=== PATIENT | male | born 1960 | race Caucasian/White ===

== ENCOUNTER 2016-11-12 20:08 | Inpatient (IN) | payer MEDICARE, MEDICAID ==
[2016-11-12] VITALS (8 sets, daily range): BP systolic 126–152; BP diastolic 70–89; PULSE 82–99; RESP 15–20; TEMP 98.4; O2SAT 96–97
[~2016-11-12] VITALS: Ht 182.9 cm; Wt 93.1 kg
[~2016-11-12 20:08] MED LIST: ATOR20TA42 PO; FOLI1 PO; GABA300C3 PO; HYDR-3533 PO; KEPP1000 PO; LISI5 PO; METO25 PO; PROT40TA PO; RIVA20 PO; THIA100T PO; TYLE3 PO
[2016-11-12] MEDS ORDERED: SODIUM CHLORIDE 0.9% FLUSH 10 ML FLUSH IVF PRN (21:00)
[2016-11-12] MEDS ORDERED: ASPIRIN 81 MG CHEW TAB PO ONE (21:00)
[2016-11-12] MEDS ORDERED: SIMV10TA PO (21:15)
[2016-11-12] MEDS ORDERED: LEVE10003 PO (21:15)
[2016-11-12] MEDS ORDERED: XARE20TA PO (21:15)
[2016-11-12] MEDS ORDERED: ONDANSETRON HCL 4 MG/2 ML VIAL IV PUSH ONE (21:15)
[2016-11-12] MEDS ORDERED: MORPHINE SULFATE 4 MG/ML INJ IV PUSH ONE (21:15)
[2016-11-12] MEDS ORDERED: GABA100C4 PO (21:15)
[2016-11-12] MEDS ORDERED: METO50TA11 PO (21:16)
--- NOTE | 2016-11-12 21:17 | PD ---
HPI Chief Complaint: Allergic/Adverse Reaction Time Seen by Provider: 20:47 Travel History International Travel<30 days: No Contact w/Intl Traveler<30days: No Traveled to known affect area: No History of Present Illness HPI Patient comes in complaining of allergic reaction that began this morning when he woke. Patient states he noticed when he thought was a stye on his right eye. Patient states it is then transferred to his left eye. He states that he began having chest pain right before calling EMS that radiates to his back. Patient states feels similar to when he had a heart attack previously. Patient reports that he was talking with his sister when she notices facial swelling prior to calling 911. Patient denies taking anything for this prior to calling EMS. Patient was given epi, Solu-Medrol Metro, and Benadryl in route to improve his symptoms however he continues to have chest pain. Patient states chest pain is substernal and sharp stabbing like in nature. Patient states he felt like his throat was closing reports associated shortness of breath that was alleviated by the medications. Patient has a known new allergen exposures, including but not limited to foods, soaps, lotions, detergents, medications, pets, or furniture. Denies any numbness or tingling anywhere. Denies any headache. PFSH Past Medical History Hx Anticoagulant Therapy: Yes (Xarelto ) Arthritis: No Asthma: No Atrial Fibrillation: Yes Autoimmune Disease: No Blood Disorders: No Anxiety: No Depression: No Heart Rhythm Problems: Yes Cancer: No Cardiac Catheterization: Yes ("two times"; ABLATION) Cardiovascular Problems: Yes (stent; blood clots ) High Cholesterol: Yes Chemotherapy: No Chest Pain: Yes Congestive Heart Failure: No COPD: No Cerebrovascular Accident: No Diabetes: No Diminished Hearing: No Endocrine: No Gastrointestinal Disorders: Yes GERD: No Glaucoma: No Genitourinary: No Headaches: Yes Hepatitis: No Hiatal Hernia: No Hypertension: Yes Immune Disorder: No Implanted Vascular Access Dvce: Yes Kidney Stones: No Musculoskeletal: Yes Neurologic: Yes (SEIZURES) Psychiatric: No Reproductive: No Respiratory: Yes (CHF) Migraines: No Myocardial Infarction: Yes Radiation Therapy: No Renal Failure: No Seizures: Yes (EPILEPSY 2001) Sickle Cell Disease: No Sleep Apnea: No Thyroid Disease: No Ulcer: No PNEUMOCCOCAL Vaccine (Year): 2 Past Surgical History Abdominal Aneurysm Repair: Yes (1995) Abdominal Surgery: No Appendectomy: No Arteriovenous Shunt: No Body Medical Devices: PACER Cardiac Surgery: Yes (CABG X 3 VESSEL IN , pacemaker removed 8-9 months ago) Cholecystectomy: No Coronary Artery Bypass Graft: Yes Ear Surgery: No Endocrine Surgery: No Eye Surgery: No Genitourinary Surgery: No Gynecologic Surgery: No Insulin Pump: No Joint Replacement: No Oral Surgery: No Thoracic Surgery: No Other Surgery: Yes (DEFIB PACER IMPLANT, CABG) Social History Alcohol Use: Yes (Every other day) Tobacco Use: Yes (1 PACK CIG DAILY) Substance Use: No Allergies-Medications (Allergen,Severity, Reaction): Coded Allergies: cefazolin (Unverified Allergy, Severe, Hives, 10/28/16) nitroglycerin (Unverified Adverse Reaction, Intermediate, Nausea/Vomiting , 10/28/16) Reported Meds & Prescriptions Reported Meds & Active Scripts Active Reported Metoprolol Succinate ER 24 HR (Metoprolol Succinate) 50 Mg Tab 50 Mg PO DAILY Gabapentin 100 Mg Cap 100 Mg PO TID Levetiracetam 1,000 Mg Tab 1,000 Mg PO BID Simvastatin 10 Mg Tab 10 Mg PO DAILY Xarelto (Rivaroxaban) 20 Mg Tab 20 Mg PO DAILY Review of Systems Except as stated in HPI: all other systems reviewed are Neg Physical Exam Narrative GENERAL: Well-developed, overly nourished, in no acute distress, and non-ill appearing. SKIN: Urticaria appearing rash noted on face. Minimal edema noted around the eyes. HEAD: Atraumatic. Normocephalic. EYES: Pupils equal and round. EOMI. No scleral icterus. No injection or drainage. ENT: No nasal bleeding or discharge. Mucous membranes pink and moist. NECK: Trachea midline. Supple. No nuclear rigidity. No stridor. CARDIOVASCULAR: Regular rate and rhythm. No murmur appreciated. RESPIRATORY: No accessory muscle use. No respiratory distress. Scant wheezing throughout. Patient speaking in full sentences without difficulty. GASTROINTESTINAL: Abdomen soft, non-tender, nondistended, and no guarding. Hepatic and splenic margins not palpable. No pulsatile mass. MUSCULOSKELETAL: No obvious deformities. No clubbing. No cyanosis. No edema. Full range of motion. NEUROLOGICAL: Awake and alert. No obvious cranial nerve deficits. Motor grossly within normal limits. Normal speech. PSYCHIATRIC: Appropriate mood and affect; insight and judgment normal. Data Data Last Documented VS Vital Signs Date Time Temp Pulse Resp B/P (MAP) Pulse Ox O2 Delivery O2 Flow Rate FiO2 11/12/16 20:51 94 Nasal Cannula 2.00 11/12/16 20:51 98.4 99 20 130/79 (96) Orders Orders Electrocardiogram (11/12/16 20:48) Basic Metabolic Panel (Bmp) (11/12/16 20:48) Ckmb (Isoenzyme) Profile (11/12/16 20:48) Complete Blood Count With Diff (11/12/16 20:48) Magnesium (Mg) (11/12/16 20:48) Prothrombin Time / Inr (Pt) (11/12/16 20:48) Act Partial Throm Time (Ptt) (11/12/16 20:48) Troponin I (11/12/16 20:48) Chest, Single Ap (11/12/16 20:48) Ecg Monitoring (11/12/16 20:48) Bilateral Bp Monitoring (11/12/16 20:48) Iv Access Insert/Monitor (11/12/16 20:48) Oximetry (11/12/16 20:48) Oxygen Administration (11/12/16 20:48) Aspirin Chew (Aspirin Chew) (11/12/16 21:00) Sodium Chloride 0.9% Flush (Ns Flush) (11/12/16 21:00) Morphine Inj (Morphine Inj) (11/12/16 21:15) Ondansetron Inj (Zofran Inj) (11/12/16 21:15) Potassium Chloride (Kcl) (11/12/16 22:15) Labs Laboratory Tests Test 11/12/16 20:45 White Blood Count 7.7 TH/MM3 Red Blood Count 4.16 MIL/MM3 Hemoglobin 11.4 GM/DL Hematocrit 35.9 % Mean Corpuscular Volume 86.2 FL Mean Corpuscular Hemoglobin 27.5 PG Mean Corpuscular Hemoglobin Concent 31.9 % Red Cell Distribution Width 16.8 % Platelet Count 63 TH/MM3 Mean Platelet Volume 9.4 FL Neutrophils (%) (Auto) 62.7 % Lymphocytes (%) (Auto) 27.7 % Monocytes (%) (Auto) 8.8 % Eosinophils (%) (Auto) 0.5 % Basophils (%) (Auto) 0.3 % Neutrophils # (Auto) 4.8 TH/MM3 Lymphocytes # (Auto) 2.1 TH/MM3 Monocytes # (Auto) 0.7 TH/MM3 Eosinophils # (Auto) 0.0 TH/MM3 Basophils # (Auto) 0.0 TH/MM3 CBC Comment AUTO DIFF Differential Comment AUTO DIFF CONFIRMED Prothrombin Time 12.2 SEC Prothromb Time International Ratio 1.1 RATIO Activated Partial Thromboplast Time 30.4 SEC Blood Urea Nitrogen 10 MG/DL Creatinine 1.02 MG/DL Random Glucose 128 MG/DL Calcium Level 8.7 MG/DL Magnesium Level 2.0 MG/DL Sodium Level 134 MEQ/L Potassium Level 3.1 MEQ/L Chloride Level 100 MEQ/L Carbon Dioxide Level 24.3 MEQ/L Anion Gap 10 MEQ/L Estimat Glomerular Filtration Rate 76 ML/MIN Total Creatine Kinase 67 U/L Troponin I LESS THAN 0.02 NG/ML MDM Medical Decision Making Medical Screen Exam Complete: Yes Emergency Medical Condition: Yes Interpretation(s) EKG reviewed by Dr. Ozuna shows sinus rhythm with occasional PVCs. Ventricular rate is 98. No STEMI. Chest x-ray read by the radiologist shows: Minimal suspected right base atelectasis or consolidation. Cardiomegaly. Differential Diagnosis Allergic reaction, anaphylaxis, acute coronary syndrome, electrolyte abnormality , pneumonia, other Narrative Course Patient's exam. Initial laboratory and radiological studies ordered. IV was established patient's placed on continuous cardiac monitoring. Patient was given aspirin. Patient is reassessed continuing complaining of chest pain. Patient was given a dose morphine. Patient's potassium was replaced orally. Chest x-ray findings likely atelectasis. Discussed patient with Dr. Ozuna, who is in agreement with plan of care and disposition. Discussed all findings with patient was agreeable for admission. All questions were answered. Patient remained stable throughout ED course. Discussed patient with hospitalist who is agreeable to admit the patient. Physician Communication Physician Communication [phone] Doll, who is agreeable to admit the patient. Diagnosis Primary Impression: Acute chest pain Additional Impressions: Allergic reaction Qualified Codes: T78.40XA - Allergy, unspecified, initial encounter Hypokalemia Admitting Information Admitting Physician Requests: Observation Condition: Stable Masoud Roche Nov 12, 2016 21:17
[2016-11-12 21:25] LABS: APTT (PATIENT) 30.4 SEC (24.3-30.1); AUTOMATED NEUTROPHIL # 4.8 TH/MM3 (1.8-7.7); BASOPHIL % 0.3 % (0.0-2.0); EOSINOPHIL % 0.5 % (0.0-4.0); HEMATOCRIT 35.9 % (39.0-51.0); INTERNATIONAL NORMALIZED RATIO 1.1 RATIO; LYMPH % 27.7 % (9.0-44.0); LYMPHOCYTE # 2.1 TH/MM3 (1.0-4.8); MEAN CELL VOLUME 86.2 FL (80.0-100.0); MEAN CORPUSCULAR HEMOGLOBIN 27.5 PG (27.0-34.0); MEAN CORPUSCULAR HGB CONC 31.9 % (32.0-36.0); MONO % 8.8 % (0.0-8.0); NEUT % 62.7 % (16.0-70.0); PLATELET COUNT 63 TH/MM3 (150-450); PROTHROMBIN TIME - PATIENT 12.2 SEC (9.8-11.6); RED BLOOD COUNT 4.16 MIL/MM3 (4.50-5.90); RED CELL DISTRIBUTION WIDTH 16.8 % (11.6-17.2); WHITE BLOOD COUNT 7.7 TH/MM3 (4.0-11.0)
[2016-11-12 21:26] LABS: HEMO FLAGS AUTO DIFF
[2016-11-12 21:44] LABS: ANION GAP 10 MEQ/L (5-15); BICARBONATE 24.3 MEQ/L (21.0-32.0); BLOOD UREA NITROGEN 10 MG/DL (7-18); CHLORIDE 100 MEQ/L (98-107); GLOMERULAR FILTRATION RATE 76 ML/MIN (>89); POTASSIUM 3.1 MEQ/L (3.5-5.1); SODIUM (NA) 134 MEQ/L (136-145)
[2016-11-12 21:50] LABS: SCAN/DIFF AUTO DIFF CONFIRMED
--- NOTE | 2016-11-12 22:09 | RADRPT ---
EXAM DATE/TIME: 11/12/2016 21:01 [facility] COMPARISON: CHEST SINGLE AP, January 12, 2016, 20:55. INDICATIONS : Chest pain MEDICAL HISTORY : Hypercholesterolemia. Hypertension. Myocardial infarction. A-fib. SURGICAL HISTORY : Pacemaker. CABG. Abdominal aortic aneurysm repair. Cardiac cath.Ablation. ENCOUNTER: Initial ACUITY: 2 days PAIN SCORE: 8/10 LOCATION: chest FINDINGS: The patient is status post sternotomy. The heart size is enlarged. There is a pacing device in place from the right subclavian approach. There some mild increased density at the right base. The left debbie g appears grossly clear. No effusion is seen. CONCLUSION: Minimal suspected right base atelectasis or consolidation. Cardiomegaly. Felipe Catherine MD on November 12, 2016 at 22:07 Board Certified Radiologist. This report was verified electronically.
[2016-11-12] MEDS ORDERED: POTASSIUM CHLORIDE 20 MEQ CONTROLLED RELEASE TAB PO ONE (22:15)
[2016-11-12 22:24] LABS: CREATINE KINASE 67 U/L (39-308)
[2016-11-12] MEDS ORDERED: SODIUM CHLORIDE 0.9% FLUSH 10 ML FLUSH IV FLUSH PRN (23:00)
[2016-11-12] MEDS ORDERED: RESP: IPRATROPIUM 0.5 MG/2.5 ML NEB NEB PRN (23:00)
[2016-11-12] MEDS ORDERED: NALOXONE HCL 0.4 MG/ML AMP IV PRN (23:00)
[2016-11-13] VITALS (13 sets, daily range): BP systolic 98–147; BP diastolic 59–77; PULSE 64–100; RESP 16–18; TEMP 97.3–98.9; O2SAT 92–98
--- NOTE | 2016-11-13 00:50 | HHI.HP ---
HPI Service [facility] Primary Care Physician Unknown Admission Diagnosis chest pain, allergic reaction Diagnoses: Chief Complaint: allergic reaction, chest pain, sob Travel History International Travel<30 Days: No Contact w/Intl Traveler <30 Da: No Traveled to Known Affected Are: No History of Present Illness Written by MAI Friedman acting as scribe for [Sharmila] on 11/13/16 at 00: 44. 56 y/o female with a history of HTN, pre diabetic, [place], COPD, Seizures, and CAD presented to the ED via Evac with complaints of facial swelling, chest pain, and sob. He states he woke up left eye swollen, then his right eye became swollen and it extended down his face. Shortly after he began to have chest pain and sob. He states the chest pain is constant with radiation to his left arm and associated diaphoresis. He is on chronic anticoagulation. He was given morphine and the pain subsided for some time, but he states it is back. He denies eating any thing new or using any new medication or soaps. He states he has had a cold with congestion, yellow sputum, and running nose, and he was treating it with alkalizer cold medicine OTC for the last 7-8 days with improvement. He did have some associated dizziness and nausea. Review of Systems Except as stated in HPI: all other systems reviewed are Neg Past Family Social History Past Medical History HTN OK CAD CHF Afib on anticoagulation COPD Seizures Past Surgical History CABG 1998 Ablation x 2 Reported Medications Reported Meds & Active Scripts Active Reported Metoprolol Succinate ER 24 HR (Metoprolol Succinate) 50 Mg Tab 50 Mg PO DAILY Gabapentin 100 Mg Cap 100 Mg PO TID Levetiracetam 1,000 Mg Tab 1,000 Mg PO BID Simvastatin 10 Mg Tab 10 Mg PO DAILY Xarelto (Rivaroxaban) 20 Mg Tab 20 Mg PO DAILY Allergies: Coded Allergies: cefazolin (Unverified Allergy, Severe, Hives, 10/28/16) nitroglycerin (Unverified Adverse Reaction, Intermediate, Nausea/Vomiting , 10/28/16) Active Ordered Medications Current Medications Medications (Trade) Dose Ordered Sig/Viky Route Start Time Stop Time Status Last Admin (NS Flush) 2 ml UNSCH PRN IV FLUSH 11/12/16 23:00 (NS Flush) 2 ml BID IV FLUSH 11/13/16 09:00 (Narcan Inj) 0.4 mg UNSCH PRN IV 11/12/16 23:00 (Benadryl Inj) 25 mg Q6H PRN IV PUSH 11/12/16 23:00 (Ecotrin Ec) 325 mg DAILY PO 11/13/16 09:00 (Atrovent Neb) 0.5 mg Q6HR NEB NEB 11/13/16 04:00 (Atrovent Neb) 0.5 mg Q2HR NEB PRN NEB 11/12/16 23:00 Family History Mom: CHF, at 66 Dad: Cancer, at 56 Social History Tobacco use: 1 03/16 PPD Alcohol use: 6-8 beers 2-3 times a week Illicit drug use: Denies Physical Exam Vital Signs Vital Signs Date Time Temp Pulse Resp B/P (MAP) Pulse Ox O2 Delivery O2 Flow Rate FiO2 11/13/16 00:16 77 15 115/76 (89) 97 2.00 11/13/16 00:00 78 18 115/76 (89) 96 Nasal Cannula 2.00 11/12/16 23:30 82 18 126/73 (90) 97 Nasal Cannula 2.00 11/12/16 23:00 84 15 131/82 (98) 97 Nasal Cannula 2.00 11/12/16 22:30 90 19 152/89 (110) 96 Nasal Cannula 2.00 11/12/16 22:00 97 17 137/75 (95) 96 Nasal Cannula 2.00 11/12/16 21:30 96 18 140/84 (102) 96 Nasal Cannula 2.00 11/12/16 21:00 98 19 134/70 (91) 97 Nasal Cannula 2.00 11/12/16 20:51 94 Nasal Cannula 2.00 11/12/16 20:51 98.4 99 20 130/79 (96) 97 Nasal Cannula 2.00 11/12/16 20:30 60 96 Nasal Cannula 2.00 11/12/16 20:27 98.4 99 20 130/79 (96) 96 Physical Exam GENERAL: This is a well-nourished, well-developed patient, in no apparent distress. SKIN: No rashes, ecchymoses or lesions. Cool and dry. HEAD: Atraumatic. Normocephalic. EYES: Pupils equal round and reactive. ENT: Nose without bleeding, purulent drainage or septal hematoma. Airway patent. NECK: Trachea midline. No JVD or lymphadenopathy. CARDIOVASCULAR: Regular rate and rhythm without murmurs, gallops, or rubs. RESPIRATORY: Clear to auscultation. Breath sounds equal bilaterally. No wheezes , rales, or rhonchi. GASTROINTESTINAL: Abdomen soft, non-tender, nondistended. MUSCULOSKELETAL: Extremities without clubbing, cyanosis, or edema. No joint tenderness, effusion, or edema noted. No calf tenderness. NEUROLOGICAL: Awake and alert.Motor and sensory grossly within normal limits. Normal speech. Laboratory Laboratory Tests Test 11/12/16 20:45 White Blood Count 7.7 Red Blood Count 4.16 Hemoglobin 11.4 Hematocrit 35.9 Mean Corpuscular Volume 86.2 Mean Corpuscular Hemoglobin 27.5 Mean Corpuscular Hemoglobin Concent 31.9 Red Cell Distribution Width 16.8 Platelet Count 63 Mean Platelet Volume 9.4 Neutrophils (%) (Auto) 62.7 Lymphocytes (%) (Auto) 27.7 Monocytes (%) (Auto) 8.8 Eosinophils (%) (Auto) 0.5 Basophils (%) (Auto) 0.3 Neutrophils # (Auto) 4.8 Lymphocytes # (Auto) 2.1 Monocytes # (Auto) 0.7 Eosinophils # (Auto) 0.0 Basophils # (Auto) 0.0 CBC Comment AUTO DIFF Differential Comment AUTO DIFF CONFIRMED Prothrombin Time 12.2 Prothromb Time International Ratio 1.1 Activated Partial Thromboplast Time 30.4 Blood Urea Nitrogen 10 Creatinine 1.02 Random Glucose 128 Calcium Level 8.7 Magnesium Level 2.0 Sodium Level 134 Potassium Level 3.1 Chloride Level 100 Carbon Dioxide Level 24.3 Anion Gap 10 Estimat Glomerular Filtration Rate 76 Total Creatine Kinase 67 Troponin I LESS THAN 0.02 Result Diagram: 11/12/16204411/12/162044 Imaging Last Impressions Chest X-Ray 11/12/162047 Signed Impressions: Service Date/Time: October 21:01 - CONCLUSION: Minimal suspected right base atelectasis or consolidation. Cardiomegaly. MD Nayeli Moffetti VTE Risk Assessment Caprini VTE Risk Assessment: Mod/High Risk (score >= 2) Caprini Risk Assessment Model Point Value = 1 Point Value = 2 Point Value = 3 Point Value = 5 Age 41-60 Minor surgery BMI > 25 kg/m2 Swollen legs Varicose veins or History of unexplained or recurrent spontaneous Oral contraceptives or hormone replacement Sepsis (< 1 month) Serious lung disease, including pneumonia (< 1 month) Abnormal pulmonary function Acute myocardial infarction Congestive heart failure (< 1 month) History of inflammatory bowel disease Medical patient at bed rest Age 61-74 Arthroscopic surgery Major open surgery (> 45 min) Laparoscopic surgery (> 45 min) Malignancy Confined to bed (> 72 hours) Immobilizing plaster cast Central venous access Age >= 75 History of VTE Family history of VTE Factor V Leiden Prothrombin [id number] Lupus anticoagulant Anticardiolipin antibodies Elevated serum homocysteine Heparin-induced thrombocytopenia Other congenital or acquired thrombophilia Stroke (< 1 month) Elective arthroplasty Hip, pelvis, or leg fracture Acute spinal cord injury (< 1 month) Prophylaxis Regimen Total Risk Factor Score Risk Level Prophylaxis Regimen 0-1 Low Early ambulation 2 Moderate Order ONE of the following: *Sequential Compression Device (SCD) *Heparin 5000 units SQ BID 3-4 Higher Order ONE of the following medications: *Heparin 5000 units SQ TID *Enoxaparin/Lovenox 40 mg SQ daily (WT < 150 kg, CrCl > 30 mL/min) *Enoxaparin/Lovenox 30 mg SQ daily (WT < 150 kg, CrCl > 10-29 mL/min) *Enoxaparin/Lovenox 30 mg SQ BID (WT < 150 kg, CrCl > 30 mL/min) AND/OR *Sequential Compression Device (SCD) 5 or more Highest Order ONE of the following medications: *Heparin 5000 units SQ TID (Preferred with Epidurals) *Enoxaparin/Lovenox 40 mg SQ daily (WT < 150 kg, CrCl > 30 mL/min) *Enoxaparin/Lovenox 30 mg SQ daily (WT < 150 kg, CrCl > 10-29 mL/min) *Enoxaparin/Lovenox 30 mg SQ BID (WT < 150 kg, CrCl > 30 mL/min) AND *Sequential Compression Device (SCD) Assessment and Plan Problem List: (1) Chest pain ICD Code: R07.9 - Chest pain, unspecified Status: Acute (2) Hypokalemia ICD Code: E87.6 - Hypokalemia Status: Acute (3) Allergic reaction ICD Code: T78.40XA - Allergy, unspecified, initial encounter Status: Acute (4) A-fib ICD Code: I48.91 - Unspecified atrial fibrillation Status: Chronic Assessment and Plan 56 y/o female with a history of HTN, pre diabetic, [place], COPD, Seizures, and CAD presented to the ED via Evac with complaints of facial swelling, chest pain, and sob. Chest pain, atypical, r/o ACS, troponin .02 -Serial troponin and EKGs -Morphine for pain Allergic reaction, unknown source, resolving -Solumedrol and epi given by evac -Cont to monitor -Benadryl IV PRN Hypokalemia, potassium 3.1, mag 2.0 -Supplementation ordered, trend BMP and replace as needed Cough, for 1 week, hx of COPD, no leukocytosis or fevers Chest x ray reviewed and shows minimal suspected right base atelectasis or consolidation -Atrovent scheduled and PRN -Incentive spirometer -Hold antibiotics for now Afib, chronic -Cont home medications metoprolol and Xarelto, monitor tele Seizures, chronic -Cont home medications gabapentin and Keppra Tobacco abuse -Consoled on quitting DVT prophylaxis: Xarelto This note was transcribed by suresh [Elsa Loza]. I, Dr. Ana María Doll personally performed the history, physical exam, and medical decision making; and confirmed the accuracy of the information in the transcribed note. Authenticated by Dr. Ana María Doll on 11/13/16 at 00:44. Discussed Condition With Patient and ED physician Problem Qualifiers (1) Allergic reaction: Qualified Codes: T78.40XA - Allergy, unspecified, initial encounter Elsa Loza Nov 13, 2016 00:50 Ana María Doll MD Nov 13, 2016 09:33
[2016-11-13] MEDS ORDERED: GABAPENTIN 100 MG CAP PO ONE (01:00)
[2016-11-13] MEDS: levETIRAcetam 500 MG TAB PO SCH ×3 (01:34→20:29)
[2016-11-13] MEDS: MORPHINE SULFATE 4 MG/ML INJ IV PUSH PRN ×4 (01:35→17:01)
[2016-11-13] MEDS: RESP: IPRATROPIUM 0.5 MG/2.5 ML NEB NEB SCH ×4 (03:39→20:11)
[2016-11-13 04:33] LABS: CREATINE KINASE 59 U/L (39-308)
[2016-11-13] MEDS: diphenhydrAMINE HCL 50 MG/ML VIAL IV PUSH PRN ×2 (04:39→11:02)
[2016-11-13] MEDS: PRAVASTATIN SOD 20 MG TAB PO SCH (08:48)
[2016-11-13] MEDS: METOPROLOL SUCCINATE 50 MG EXTENDED RELEASE TAB PO SCH (08:48)
[2016-11-13] MEDS: RIVAROXABAN 20 MG TAB PO SCH (08:48)
[2016-11-13] MEDS: GABAPENTIN 100 MG CAP PO SCH ×3 (08:49→18:18)
[2016-11-13] MEDS: SODIUM CHLORIDE 0.9% FLUSH 10 ML FLUSH IV FLUSH SCH ×2 (08:50→20:15)
[2016-11-13] MEDS ORDERED: ASPIRIN EC 325 MG TABEC PO SCH (09:00)
[2016-11-13 09:06] LABS: AUTOMATED NEUTROPHIL # 4.7 TH/MM3 (1.8-7.7); HEMATOCRIT 35.6 % (39.0-51.0); LYMPH % 10.7 % (9.0-44.0); LYMPHOCYTE # 0.6 TH/MM3 (1.0-4.8); MEAN CELL VOLUME 86.8 FL (80.0-100.0); MEAN CORPUSCULAR HEMOGLOBIN 28.1 PG (27.0-34.0); MEAN CORPUSCULAR HGB CONC 32.3 % (32.0-36.0); MONO % 3.3 % (0.0-8.0); PLATELET COUNT 53 TH/MM3 (150-450); RED BLOOD COUNT 4.09 MIL/MM3 (4.50-5.90); WHITE BLOOD COUNT 5.5 TH/MM3 (4.0-11.0)
[2016-11-13 09:17] LABS: HEMO FLAGS AUTO DIFF
[2016-11-13 09:32] LABS: BICARBONATE 26.7 MEQ/L (21.0-32.0); POTASSIUM 4.2 MEQ/L (3.5-5.1)
[2016-11-13 10:12] LABS: SCAN/DIFF AUTO DIFF CONFIRMED
[2016-11-13] MEDS ORDERED: DEXTROSE 50% IN WATER 50 ML VIAL(D50) IV PRN (10:45)
[2016-11-13] MEDS ORDERED: GLUCAGON 1 MG/ML VIAL OTHER PRN (10:45)
--- NOTE | 2016-11-13 11:18 | HHI.PR ---
Subjective Remarks Follow-up for facial swelling and chest discomfort. The patient states that yesterday he was having generalized facial swelling. He states that the swelling improved some with medications he received, but it is still present. He doesn't feel like the Benadryl is helping it anymore. He states he had shortness of breath yesterday but that has resolved. He denies any lip, tongue , or throat swelling. He is unsure what he might have had a reaction to. He denies any eating any unusual foods, new medications, new detergents or soaps, any new bites or plant exposures. He denies any rash. He's never had any reaction like this before. He states he felt like he had the flu recently which has improved but not resolved. He's been having dry cough, nausea, vomiting. Yesterday he did have needlelike pain in his chest. The pain was not similar to when he had his previous CABG. He does follow with cardiology, Dr. Beaulieu, and had a normal stress test last year. He doesn't feel like this is his heart and declines any further cardiac workup at this time. He just wants his facial swelling better so he can go home soon. Objective Vitals Vital Signs Date Time Temp Pulse Resp B/P (MAP) Pulse Ox O2 Delivery O2 Flow Rate FiO2 11/13/16 08:10 98.5 89 18 109/74 (86) 93 11/13/16 07:33 79 11/13/16 04:30 97.6 80 17 119/67 (84) 93 11/13/16 03:41 97 Nasal Cannula 2.00 11/13/16 01:20 97.3 73 16 122/77 (92) 96 11/13/16 00:16 77 15 115/76 (89) 97 2.00 11/13/16 00:00 78 18 115/76 (89) 96 Nasal Cannula 2.00 11/12/16 23:30 82 18 126/73 (90) 97 Nasal Cannula 2.00 11/12/16 23:00 84 15 131/82 (98) 97 Nasal Cannula 2.00 11/12/16 22:30 90 19 152/89 (110) 96 Nasal Cannula 2.00 11/12/16 22:00 97 17 137/75 (95) 96 Nasal Cannula 2.00 11/12/16 21:30 96 18 140/84 (102) 96 Nasal Cannula 2.00 11/12/16 21:00 98 19 134/70 (91) 97 Nasal Cannula 2.00 11/12/16 20:51 94 Nasal Cannula 2.00 11/12/16 20:51 98.4 99 20 130/79 (96) 97 Nasal Cannula 2.00 11/12/16 20:30 60 96 Nasal Cannula 2.00 11/12/16 20:27 98.4 99 20 130/79 (96) 96 Result Diagram: 11/13/16 0658 11/13/16 0658 Imaging Last Impressions Chest X-Ray 11/12/162047 Signed Impressions: Service Date/Time: October 21:01 - CONCLUSION: Minimal suspected right base atelectasis or consolidation. Cardiomegaly. Felipe Catherine MD Objective Remarks GENERAL: Well-developed well-nourished. In no acute distress. SKIN: Warm and dry. Face with some mild generalized edema. HEENT: Normocephalic. Pupils equal and round. Mucous membranes pink and moist. No lip, tongue, throat swelling. CARDIOVASCULAR: Regular rate and rhythm. No murmur appreciated. RESPIRATORY: No accessory muscle use. Clear to auscultation. Breath sounds equal bilaterally. No wheezing. GASTROINTESTINAL: Abdomen soft, non-tender, nondistended. Bowel sounds x4. MUSCULOSKELETAL: No obvious deformities. No clubbing or cyanosis. No edema. NEUROLOGICAL: Awake and alert. No focal neurological deficits. Moves upper and lower extremities spontaneously. Normal speech. PSYCHIATRIC: Appropriate mood and affect; insight and judgment normal. A/P Problem List: (1) Chest pain ICD Code: R07.9 - Chest pain, unspecified Status: Resolved (2) Hypokalemia ICD Code: E87.6 - Hypokalemia Status: Resolved (3) Allergic reaction ICD Code: T78.40XA - Allergy, unspecified, initial encounter Status: Acute (4) A-fib ICD Code: I48.91 - Unspecified atrial fibrillation Status: Chronic Assessment and Plan 56 y/o male with a history of HTN, pre diabetic, [place], COPD, Seizures, and CAD presented to the ED via Evac with complaints of facial swelling, chest pain, and sob. Chest pain, atypical: Suspect secondary to URI as below. ACS ruled out per protocol with unremarkable serial cardiac enzymes and EKGs. Lower risk for thrombosis on Xarelto. 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 Cough is been persistent over a week, possibly contributing to atypical chest pain. No leukocytosis or fevers.Chest x ray image reviewed and shows minimal suspected right base atelectasis or consolidation. -Atrovent scheduled and PRN -Incentive spirometer -Due to duration of symptoms and chest x-ray findings will treat for atypical pneumonia with azithromycin Borderline diabetes mellitus: Hyperglycemia secondary to steroids. -Check hemoglobin A1c -Monitor Accu-Cheks and cover with SSI if needed for now while on steroids. Afib, chronic -Cont home medications metoprolol and Xarelto, monitor tele Seizures, chronic -Cont home medications gabapentin and Keppra Tobacco abuse -Consoled on quitting DVT prophylaxis: Xarelto Discharge Planning Possible discharge planning later today vs tomorrow am if continued clinical improvement. Problem Qualifiers (1) Allergic reaction: Qualified Codes: T78.40XA - Allergy, unspecified, initial encounter Franco Mckeon Nov 13, 2016 11:18
[2016-11-13 12:07] LABS: CREATINE KINASE 61 U/L (39-308)
[2016-11-13] MEDS: INSULIN ASPART SUPPLEMENTAL SCALE SQ SCH ×3 (12:55→20:28)
[2016-11-13] MEDS ORDERED: AZITHROMYCIN 250 MG TAB PO ONE (13:00)
[2016-11-13] MEDS ORDERED: methylPREDNISolone SOD SUCC 125 MG/2 ML VIAL IV PUSH ONE (13:00)
[2016-11-13] MEDS ORDERED: ONDANSETRON HCL 4 MG/2 ML VIAL IV PUSH PRN (14:30)
[2016-11-13] MEDS: diphenhydrAMINE HCL 25 MG CAP PO SCH ×2 (17:01→21:53)
[2016-11-13 17:15] LABS: HEMOGLOBIN A1a 1.7 %; HEMOGLOBIN A1b 0.9 %; HEMOGLOBIN Ao 79.3 %; HEMOGLOBIN F 1.6 %; HEMOGLOBIN LA1C 3.6 %; HEMOGLOBIN P3 4.2 %
--- NOTE | 2016-11-13 19:45 | EKG ---
Date Performed: 11/13/2016 Time Performed: 09:46:07 PTAGE: 56 years EKG: Sinus rhythm WITH OCCASIONAL SUPRAVENTRICULAR PREMATURE COMPLEXES ST DEVIATION AND MODERATE T-WAVE ABNORMALITY, C ONSIDER ANTEROLATERAL ISCHEMIA ST DEVIATION AND MODERATE T-WAVE ABNORMALITY, CONSIDER INFERIOR ISCHEM IA ABNORMAL ECG PREVIOUS TRACING : 11/13/2016 05.22 Compared to prior tracing no significant change DOCTOR: García Kiser Interpretating Date/Time 11/13/2016 19:44:17
[2016-11-13] MEDS: predniSONE 20 MG TAB PO SCH (20:29)
--- NOTE | 2016-11-13 20:37 | EKG ---
Date Performed: 11/13/2016 Time Performed: 05:22:44 PTAGE: 56 years EKG: Sinus rhythm MODERATE INTRAVENTRICULAR CONDUCTION DELAY ST DEVIATION AND MODERATE T-WAVE ABNORMALITY, CONSIDER LA TERAL ISCHEMIA ST DEVIATION AND MODERATE T-WAVE ABNORMALITY, CONSIDER INFERIOR ISCHEMIA ABNORMAL ECG PREVIOUS TRACING : 11/12/2016 20.51 Compared to the previous tracing, ST/T wave changes are mor e prominent DOCTOR: García Kiser Interpretating Date/Time 11/13/2016 20:35:27
[2016-11-13] MEDS ORDERED: ACETAMINOPHEN/HYDROcodone 325 MG/7.5 MG TAB PO ONE (21:30)
[2016-11-13] MEDS: methylPREDNISolone SOD SUCC 40 MG/1 ML VIAL IV PUSH SCH (21:53)
[2016-11-14] VITALS (14 sets, daily range): BP systolic 90–120; BP diastolic 58–70; PULSE 57–89; RESP 18–20; TEMP 96.8–98.8; O2SAT 88–100
--- NOTE | 2016-11-14 00:54 | EKG ---
Date Performed: 11/12/2016 Time Performed: 20:51:38 PTAGE: 56 years EKG: Sinus rhythm WITH OCCASIONAL VENTRICULAR PREMATURE COMPLEXES POSSIBLE LEFT ATRIAL ENLARGEMENT MODERATE INTRAVENTR ICULAR CONDUCTION DELAY NONSPECIFIC ST & T-WAVE ABNORMALITY BORDERLINE ECG PREVIOUS TRACING : 01/12/2016 20.30 Compared to the previous tracing, PVCs now noted DOCTOR: García Kiser Interpretating Date/Time 11/14/2016 00:53:14
[2016-11-14] MEDS: RESP: IPRATROPIUM 0.5 MG/2.5 ML NEB NEB SCH ×2 (03:01→10:41)
[2016-11-14] MEDS: diphenhydrAMINE HCL 25 MG CAP PO SCH ×4 (04:07→21:07)
[2016-11-14] MEDS: methylPREDNISolone SOD SUCC 40 MG/1 ML VIAL IV PUSH SCH (06:26)
[2016-11-14] MEDS: INSULIN ASPART SUPPLEMENTAL SCALE SQ SCH ×5 (07:23→23:28)
--- NOTE | 2016-11-14 08:37 | HHI.PR ---
Subjective Remarks Follow-up for facial swelling, cough, new onset diabetes. The patient feels like his coughing is worse today. His facial swelling is improved some, but he does not feel that it is resolved. He had an episode of nausea and vomiting yesterday. Blood glucose was significantly elevated overnight. He doesn't feel well enough to go home currently. The patient says that his facial swelling is improved. He was not aware that he was a diabetic. He does endorse that he has COPD. He continues to smoke cigarettes. Objective Vitals Vital Signs Date Time Temp Pulse Resp B/P (MAP) Pulse Ox O2 Delivery O2 Flow Rate FiO2 11/14/16 06:16 98.7 87 18 120/70 (87) 94 11/14/16 04:53 98.8 78 18 102/61 (75) 98 11/14/16 03:58 57 11/14/16 00:07 79 11/13/16 23:39 98.0 64 18 108/63 (78) 98 11/13/16 20:40 98.4 74 18 98/59 (72) 95 11/13/16 20:08 76 11/13/16 20:05 92 Nasal Cannula 2.00 11/13/16 15:51 98.9 100 18 109/62 (78) 92 11/13/16 12:38 98.7 87 18 147/71 (96) 97 11/13/16 11:50 Nasal Cannula 2.00 I/O 11/13/16 11/13/16 11/13/16 11/14/16 11/14/16 11/14/16 07:00 15:00 23:00 07:00 15:00 23:00 Intake Total 500 ml Output Total 600 ml 500 ml Balance -100 ml -500 ml Intake Oral 500 ml Output Urine Total 600 ml 500 ml # Voids 6 Result Diagram: 11/13/1658 11/13/1658 Imaging Last Impressions Chest X-Ray 11/12/162047 Signed Impressions: Service Date/Time: October 21:01 - CONCLUSION: Minimal suspected right base atelectasis or consolidation. Cardiomegaly. Felipe Catherine MD Objective Remarks GENERAL: Well-developed well-nourished. In no acute distress. Resting comfortably. SKIN: Warm and dry. Face with improving mild generalized edema. No generalized rash. HEENT: Normocephalic. Pupils equal and round. Mucous membranes pink and moist. CARDIOVASCULAR: Regular rate and rhythm. No murmur appreciated. RESPIRATORY: No accessory muscle use. Clear to auscultation. Coarse breath sounds. Bilateral expiratory wheezing and rhonchi. GASTROINTESTINAL: Abdomen soft, non-tender, nondistended. Bowel sounds x4. MUSCULOSKELETAL: No obvious deformities. No clubbing or cyanosis. No edema. NEUROLOGICAL: Awake and alert. No focal neurological deficits. Moves upper and lower extremities spontaneously. Normal speech. PSYCHIATRIC: Appropriate mood and affect; insight and judgment normal. Medications and IVs Current Medications Medications (Trade) Dose Ordered Sig/Viky Route Start Time Stop Time Status Last Admin (NS Flush) 2 ml UNSCH PRN IV FLUSH 11/12/16 23:00 (NS Flush) 2 ml BID IV FLUSH 11/13/16 09:00 11/14/16 09:47 (Narcan Inj) 0.4 mg UNSCH PRN IV 11/12/16 23:00 (Atrovent Neb) 0.5 mg Q2HR NEB PRN NEB 11/12/16 23:00 11/14/16 06:30 (Neurontin) 100 mg TID PO 11/13/16 09:00 11/14/16 12:57 (Keppra) 1,000 mg BID PO 11/13/16 01:00 11/14/16 09:45 (Morphine Inj) 2 mg Q3H PRN IV PUSH 11/13/16 01:00 11/14/16 14:39 (Toprol Xl) 50 mg DAILY PO 11/13/16 09:00 11/13/16 08:48 (Xarelto) 20 mg DAILY PO 11/13/16 09:00 11/14/16 09:47 (Pravachol) 20 mg DAILY PO 11/13/16 09:00 11/14/16 09:47 (D50w (Vial) Inj) 50 ml UNSCH PRN IV 11/13/16 10:45 (Glucagon Inj) 1 mg UNSCH PRN OTHER 11/13/16 10:45 (Deltasone) 20 mg BID PO 11/13/16 21:00 11/14/16 09:45 (Benadryl) 25 mg Q6H PO 11/13/16 16:00 11/14/16 09:46 (Zofran Inj) 4 mg Q6HR PRN IV PUSH 11/13/16 14:30 11/13/16 17:00 (NovoLOG SUPPLEMENTAL SCALE) 1 ACHS SLIDING SCALE SQ 11/14/16 07:00 11/14/16 13:19 (Mucinex Er) 600 mg BID PO 11/14/16 09:00 11/14/16 09:45 (Tessalon) 100 mg TID PRN PO 11/14/16 08:45 Levofloxacin/ Dextrose 150 ml @ 100 mls/hr Q24H IV 11/14/16 12:00 11/14/16 12:56 Sodium Chloride 1,000 ml @ 84 mls/hr [id number] IV 11/14/16 12:00 11/14/16 12:57 (Duoneb Neb) 1 ampule Q6HR WHILE AWAKE NEB NEB 11/14/16 14:00 A/P Problem List: (1) Chest pain ICD Code: R07.9 - Chest pain, unspecified Status: Resolved (2) Hypokalemia ICD Code: E87.6 - Hypokalemia Status: Resolved (3) Allergic reaction ICD Code: T78.40XA - Allergy, unspecified, initial encounter Status: Acute (4) A-fib ICD Code: I48.91 - Unspecified atrial fibrillation Status: Chronic Assessment and Plan 56 y/o male with a history of HTN, pre diabetic, CA, COPD, Seizures, and CAD presented to the ED via Evac with complaints of facial swelling, chest pain, and sob. Chest pain, atypical: Suspect secondary to URI as below. ACS ruled out per protocol with unremarkable serial cardiac enzymes and EKGs. Lower risk for thrombosis on Xarelto. 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 ACS ruled out. Pain control as needed. Allergic reaction, unknown source, somewhat improved -Solumedrol and epi given by evac -Cont to monitor -Benadryl IV PRN -Given IV Solu-Medrol 3, continue on oral prednisone Improving on current regimen Hypokalemia, potassium 3.1, mag 2 -Potassium improved to normal limits on BMP after oral replacement URI/atypical pneumonia/COPD with acute respiratory failure: Recent generalized malaise, vomiting, and cough. Persistent cough for over a week, possibly contributing to atypical chest pain. No leukocytosis or fevers. Chest x ray shows minimal suspected right base atelectasis or consolidation. Episode of hypoxia 11/14 -Scheduled and as needed nebs -Antitussive scheduled and as needed. Acapella. -Change azithromycin to Levaquin -Supplemental O2 as needed Continue IV Levaquin. Continue steroids and nebs. New onset diabetes mellitus: Reports borderline diabetes in the past. Hemoglobin A1c 8.3. Hyperglycemia secondary to steroids. -Educated patient regarding diabetes management -Monitor Accu-Cheks and cover with SSI -Diabetic diet. -Start metformin -Consult art educator and dietitian Continue with insulin sliding scale. Cholesterol modifications. Start by mouth hypoglycemic upon discharge. Afib, chronic -Cont home medications metoprolol and Xarelto, monitor tele Seizures, chronic -Cont home medications gabapentin and Keppra DVT prophylaxis: Xarelto Discharge Planning Continue inpatient treatment for acute respiratory failure, hyperglycemia, questionable allergic reaction Attending Statement The exam, history, and the medical decision-making described in the above note were completed with the assistance of the mid-level provider. I reviewed and agree with the findings presented. I attest that I had a [id number] encounter with the patient on the same day, and personally performed and documented my assessment and findings in the medical record. Problem Qualifiers (1) Allergic reaction: Qualified Codes: T78.40XA - Allergy, unspecified, initial encounter Franco Mckeon Nov 14, 2016 08:37 Mic Dumont DO Nov 14, 2016 15:54
[2016-11-14] MEDS ORDERED: BENZONATATE 100 MG CAP PO ONE (08:45)
[2016-11-14] MEDS: METOPROLOL SUCCINATE 50 MG EXTENDED RELEASE TAB PO SCH (09:00)
[2016-11-14] MEDS ORDERED: metFORMIN HCL 500 MG TAB PO SCH (09:00)
[2016-11-14] MEDS ORDERED: AZITHROMYCIN 250 MG TAB PO SCH (09:00)
[2016-11-14] MEDS: GABAPENTIN 100 MG CAP PO SCH ×3 (09:45→17:45)
[2016-11-14] MEDS: guaiFENesin E.R. 600 MG TAB PO SCH ×2 (09:45→21:06)
[2016-11-14] MEDS: predniSONE 20 MG TAB PO SCH ×2 (09:45→21:06)
[2016-11-14] MEDS: levETIRAcetam 500 MG TAB PO SCH ×2 (09:45→21:05)
[2016-11-14] MEDS: SODIUM CHLORIDE 0.9% FLUSH 10 ML FLUSH IV FLUSH SCH ×2 (09:47→21:12)
[2016-11-14] MEDS: PRAVASTATIN SOD 20 MG TAB PO SCH (09:47)
[2016-11-14] MEDS: RIVAROXABAN 20 MG TAB PO SCH (09:47)
[2016-11-14] MEDS ORDERED: IOHEXOL 350 MG/ML 10 ML VIAL (for RAD DIAG) IVCONTRAST ONE (12:49)
[2016-11-14] MEDS: LEVOFLOXACIN 750 MG PREMIX INJ 150 ML IV SCH (12:56)
[2016-11-14] MEDS: SODIUM CHLOR 0.9% 1000 ML INJ 1,000 ML IV SCH ×2 (12:57→23:55)
--- NOTE | 2016-11-14 13:02 | RADRPT ---
EXAM DATE/TIME: 11/14/2016 12:36 [facility] COMPARISON: CT PULMONARY ANGIOGRAM, November 27, 2015, 21:23. INDICATIONS : Chest pain and shortness of breath. IV CONTRAST: 75 cc Omnipaque 350 (iohexol) IV RADIATION DOSE: 23.45 CTDIvol (mGy) MEDICAL HISTORY : Cardiovascular disease. Aneurysm, abdominal. Seizures. SURGICAL HISTORY : CABG Pacemaker. ENCOUNTER: Initial ACUITY: 1 day PAIN SCALE: 5/10 LOCATION: Bilateral upper chest TECHNIQUE: Volumetric scanning of the chest was performed using a pulmonary embolism protocol MIP images were re constructed. Using automated exposure control and adjustment of the mA and/or kV according to patien t size, radiation dose was kept as low as reasonably achievable to obtain optimal diagnostic quality images. DICOM format image data is available electronically for review and comparison. Follow-up recommendations for detected pulmonary nodules are based at a minimum on nodule size and pa tient risk factors according to Fleischner Society Guidelines. FINDINGS: PULMONARY ARTERIES: Pacemaker is evident on the right. Moderate emphysematous changes are present with minimal patchy ai rspace disease. There is no central pulmonary emboli. MEDIASTINUM: There is compensated cardiomegaly with moderate coronary artery calcifications. LAD stent is noted. There is no adenopathy or pericardial effusion. MUSCULOSKELETAL: Mild degenerative changes are noted. MISCELLANEOUS: The visualized upper abdominal organs demonstrate no acute abnormality. CONCLUSION: Emphysematous changes without central pulmonary emboli. Louis Rae MD FACR on November 14, 2016 at 12:53 Board Certified Radiologist. This report was verified electronically.
[2016-11-14] MEDS: RESP: ALBUTEROL 2.5 MG/IPRATROPIUM 0.5 MG NEB (SCH) NEB ×2 (14:07→19:42)
[2016-11-14] MEDS: MORPHINE SULFATE 4 MG/ML INJ IV PUSH PRN ×2 (14:39→21:07)
[2016-11-14] MEDS: BENZONATATE 100 MG CAP PO PRN (16:11)
[2016-11-15] VITALS (9 sets, daily range): BP systolic 104–123; BP diastolic 57–70; PULSE 60–107; RESP 16–20; TEMP 97.5–98.2; O2SAT 90–94
[2016-11-15] MEDS: MORPHINE SULFATE 4 MG/ML INJ IV PUSH PRN ×5 (00:36→21:37)
[2016-11-15] MEDS: BENZONATATE 100 MG CAP PO PRN ×3 (01:19→22:53)
[2016-11-15] MEDS: diphenhydrAMINE HCL 25 MG CAP PO SCH ×4 (04:22→21:36)
[2016-11-15] MEDS: INSULIN ASPART SUPPLEMENTAL SCALE SQ SCH ×4 (07:00→21:00)
[2016-11-15] MEDS: METOPROLOL SUCCINATE 50 MG EXTENDED RELEASE TAB PO SCH (08:21)
[2016-11-15] MEDS: guaiFENesin E.R. 600 MG TAB PO SCH ×2 (08:21→21:36)
[2016-11-15] MEDS: GABAPENTIN 100 MG CAP PO SCH ×3 (08:22→17:04)
[2016-11-15] MEDS: PRAVASTATIN SOD 20 MG TAB PO SCH (08:22)
[2016-11-15] MEDS: predniSONE 20 MG TAB PO SCH ×2 (08:23→21:37)
[2016-11-15] MEDS: SODIUM CHLORIDE 0.9% FLUSH 10 ML FLUSH IV FLUSH SCH ×2 (08:28→21:37)
[2016-11-15] MEDS: levETIRAcetam 500 MG TAB PO SCH ×2 (08:32→21:36)
[2016-11-15] MEDS: RIVAROXABAN 20 MG TAB PO SCH (08:32)
[2016-11-15 09:09] LABS: BICARBONATE 27.4 MEQ/L (21.0-32.0)
[2016-11-15] MEDS: RESP: ALBUTEROL 2.5 MG/IPRATROPIUM 0.5 MG NEB (SCH) NEB ×3 (09:16→19:18)
--- NOTE | 2016-11-15 10:57 | HHI.PR ---
Subjective Remarks The patient said he was feeling a little bit better. He said he wasn't quite ready to go home because of his breathing. No other acute complaints. Discussed with nursing at the bedside. Objective Vitals Vital Signs Date Time Temp Pulse Resp B/P (MAP) Pulse Ox O2 Delivery O2 Flow Rate FiO2 11/15/16 09:18 91 11/15/16 08:01 75 11/15/16 04:00 97.9 81 18 104/57 (73) 92 11/15/16 04:00 92 11/15/16 00:00 98.1 75 20 116/59 (78) 94 11/14/16 21:58 98.1 89 18 112/68 (83) 100 11/14/16 19:49 94 Nasal Cannula 2.00 11/14/16 16:28 97.9 78 20 106/68 (81) 96 11/14/16 16:00 70 11/14/16 15:50 92 21 11/14/16 12:38 96.8 77 18 102/58 (73) 96 11/14/16 12:00 74 I/O 11/14/16 11/14/16 11/14/16 11/15/16 11/15/16 11/15/16 07:00 15:00 23:00 07:00 15:00 23:00 Output Total 500 ml Balance -500 ml Output Urine Total 500 ml Result Diagram: 11/13/16 0658 11/15/16 [address] Angiography 11/14/16 0000 Signed Impressions: Service Date/Time: Monday, November 14, 2016 12:36 - CONCLUSION: Emphysematous changes without central pulmonary emboli. Louis Rae MD FACR Chest X-Ray 11/12/162047 Signed Impressions: Service Date/Time: October 21:01 - CONCLUSION: Minimal suspected right base atelectasis or consolidation. Cardiomegaly. Felipe Catherine MD Objective Remarks GENERAL: Well-developed well-nourished. In no acute distress. Resting comfortably. SKIN: Warm and dry. Face with improving mild generalized edema. No generalized rash. HEENT: Normocephalic. Pupils equal and round. Mucous membranes pink and moist. CARDIOVASCULAR: Regular rate and rhythm. No murmur appreciated. RESPIRATORY: Bilateral expiratory wheezing and rhonchi. GASTROINTESTINAL: Abdomen soft, non-tender, nondistended. Bowel sounds x4. MUSCULOSKELETAL: No obvious deformities. No clubbing or cyanosis. No edema. NEUROLOGICAL: Awake and alert. No focal neurological deficits. Moves upper and lower extremities spontaneously. Normal speech. PSYCHIATRIC: Appropriate mood and affect; insight and judgment normal. Medications and IVs Current Medications Medications (Trade) Dose Ordered Sig/Viky Route Start Time Stop Time Status Last Admin (NS Flush) 2 ml UNSCH PRN IV FLUSH 11/12/16 23:00 11/15/16 00:37 (NS Flush) 2 ml BID IV FLUSH 11/13/16 09:00 11/15/16 08:28 (Narcan Inj) 0.4 mg UNSCH PRN IV 11/12/16 23:00 (Atrovent Neb) 0.5 mg Q2HR NEB PRN NEB 11/12/16 23:00 11/14/16 06:30 (Neurontin) 100 mg TID PO 11/13/16 09:00 11/15/16 08:22 (Keppra) 1,000 mg BID PO 11/13/16 01:00 11/15/16 08:32 (Morphine Inj) 2 mg Q3H PRN IV PUSH 11/13/16 01:00 11/15/16 08:25 (Toprol Xl) 50 mg DAILY PO 11/13/16 09:00 11/15/16 08:21 (Xarelto) 20 mg DAILY PO 11/13/16 09:00 11/15/16 08:32 (Pravachol) 20 mg DAILY PO 11/13/16 09:00 11/15/16 08:22 (D50w (Vial) Inj) 50 ml UNSCH PRN IV 11/13/16 10:45 (Glucagon Inj) 1 mg UNSCH PRN OTHER 11/13/16 10:45 (Benadryl) 25 mg Q6H PO 11/13/16 16:00 11/15/16 08:22 (Zofran Inj) 4 mg Q6HR PRN IV PUSH 11/13/16 14:30 11/13/16 17:00 (NovoLOG SUPPLEMENTAL SCALE) 1 ACHS SLIDING SCALE SQ 11/14/16 07:00 11/15/16 07:00 (Mucinex Er) 600 mg BID PO 11/14/16 09:00 11/15/16 08:21 (Tessalon) 100 mg TID PRN PO 11/14/16 08:45 11/15/16 01:19 Levofloxacin/ Dextrose 150 ml @ 100 mls/hr Q24H IV 11/14/16 12:00 11/14/16 12:56 Sodium Chloride 1,000 ml @ 84 mls/hr [id number] IV 11/14/16 12:00 11/14/16 12:57 (Duoneb Neb) 1 ampule Q6HR WHILE AWAKE NEB NEB 11/14/16 14:00 11/15/16 09:16 (Deltasone) 20 mg DAILY PO 11/16/16 09:00 A/P Problem List: (1) Chest pain ICD Code: R07.9 - Chest pain, unspecified Status: Resolved (2) Hypokalemia ICD Code: E87.6 - Hypokalemia Status: Resolved (3) Allergic reaction ICD Code: T78.40XA - Allergy, unspecified, initial encounter Status: Acute (4) A-fib ICD Code: I48.91 - Unspecified atrial fibrillation Status: Chronic Assessment and Plan 56 y/o male with a history of HTN, pre diabetic, [place], COPD, Seizures, and CAD presented to the ED via Evac with complaints of facial swelling, chest pain, and sob. Chest pain, atypical: Suspect secondary to URI as below. ACS ruled out per protocol with unremarkable serial cardiac enzymes and EKGs. Lower risk for thrombosis on Xarelto. 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 ACS ruled out. Pain control as needed. Allergic reaction, unknown source, somewhat improved -Solumedrol and epi given by evac -Cont to monitor -Benadryl IV PRN -Given IV Solu-Medrol 3, continue on oral prednisone taper. Improving on current regimen Hypokalemia, potassium 3.1, mag 2 -Potassium improved to normal limits on BMP after oral replacement COPD exacerbation: Recent generalized malaise, vomiting, and cough. Cough has been persistent over a week, possibly contributing to atypical chest pain. No leukocytosis or fevers. Chest x ray shows minimal suspected right base atelectasis or consolidation. CTA with emphysema. No PE. -Atrovent scheduled and PRN -Antitussive scheduled and as needed. Acapella. -Continue IV Levaquin. Continue steroids and nebs. Encourage ambulation. -Smoking cessation instruction. New onset diabetes mellitus: Reports borderline diabetes in the past. Hemoglobin A1c 8.3. Hyperglycemia secondary to steroids. -Educated patient regarding diabetes management -Monitor Accu-Cheks and cover with SSI -Diabetic diet. -Start po hypoglycemic upon discharge. -Consult software educator and dietitian -Wean steroids. Afib, chronic -Cont home medications metoprolol and Xarelto, monitor tele Seizures, chronic -Cont home medications gabapentin and Keppra Thrombocytopenia Chronic in nature. - Follow CBC. Consider holding anticoagulation if platelet count under 50. DVT prophylaxis: Xarelto Discharge Planning Awaiting improvement in respiratory status. Anticipate 1-2 more days. Problem Qualifiers (1) Allergic reaction: Qualified Codes: T78.40XA - Allergy, unspecified, initial encounter Mic Dumont DO Nov 15, 2016 10:57
[2016-11-15] MEDS: LEVOFLOXACIN 750 MG PREMIX INJ 150 ML IV SCH (11:19)
[2016-11-16] VITALS (9 sets, daily range): BP systolic 110–135; BP diastolic 62–82; PULSE 60–87; RESP 16–18; TEMP 97.8–98.4; O2SAT 93–94
[2016-11-16] MEDS: diphenhydrAMINE HCL 25 MG CAP PO SCH ×4 (04:53→21:50)
[2016-11-16] MEDS: INSULIN ASPART SUPPLEMENTAL SCALE SQ SCH ×4 (05:05→21:50)
[2016-11-16] MEDS: MORPHINE SULFATE 4 MG/ML INJ IV PUSH PRN ×5 (05:12→21:44)
[2016-11-16] MEDS: SODIUM CHLORIDE 0.9% FLUSH 10 ML FLUSH IV FLUSH SCH ×2 (08:05→21:39)
[2016-11-16] MEDS: PRAVASTATIN SOD 20 MG TAB PO SCH (08:05)
[2016-11-16] MEDS: levETIRAcetam 500 MG TAB PO SCH ×2 (08:05→21:40)
[2016-11-16] MEDS: METOPROLOL SUCCINATE 50 MG EXTENDED RELEASE TAB PO SCH (08:05)
[2016-11-16] MEDS: predniSONE 20 MG TAB PO SCH ×2 (08:06→21:40)
[2016-11-16] MEDS: guaiFENesin E.R. 600 MG TAB PO SCH ×2 (08:06→21:40)
[2016-11-16] MEDS: GABAPENTIN 100 MG CAP PO SCH ×3 (08:06→16:59)
[2016-11-16] MEDS: RIVAROXABAN 20 MG TAB PO SCH (08:06)
[2016-11-16] MEDS ORDERED: predniSONE 20 MG TAB PO SCH (09:00)
[2016-11-16 09:40] LABS: HEMATOCRIT 35.2 % (39.0-51.0); MEAN CELL VOLUME 87.4 FL (80.0-100.0); MEAN CORPUSCULAR HEMOGLOBIN 27.6 PG (27.0-34.0); MEAN CORPUSCULAR HGB CONC 31.6 % (32.0-36.0); PLATELET COUNT 93 TH/MM3 (150-450); RED BLOOD COUNT 4.03 MIL/MM3 (4.50-5.90); RED CELL DISTRIBUTION WIDTH 17.1 % (11.6-17.2); WHITE BLOOD COUNT 14.8 TH/MM3 (4.0-11.0)
[2016-11-16 09:47] LABS: REVIEW FLAG FINAL
[2016-11-16] MEDS: RESP: ALBUTEROL 2.5 MG/IPRATROPIUM 0.5 MG NEB (SCH) NEB ×3 (10:19→21:09)
[2016-11-16] MEDS: LEVOFLOXACIN 750 MG PREMIX INJ 150 ML IV SCH (11:05)
[2016-11-16] MEDS: BENZONATATE 100 MG CAP PO PRN ×2 (15:05→21:50)
--- NOTE | 2016-11-16 15:11 | HHI.PR ---
Subjective Remarks The patient said that he was feeling a little bit better. He said the Tessalon Perles seem to be helping. He said the nebulizer treatments cause him to have a bad headache and cough a lot. He still has some chest discomfort which he believes is from coughing. He would like to go home tomorrow if possible. He does not want to use home oxygen. Discussed with nursing at the bedside. Objective Vitals Vital Signs Date Time Temp Pulse Resp B/P (MAP) Pulse Ox O2 Delivery O2 Flow Rate FiO2 11/16/16 12:17 97.9 87 18 119/75 (90) 94 11/16/16 10:19 93 11/16/16 08:18 98.4 76 16 113/69 (84) 94 11/16/16 08:01 60 11/16/16 04:23 98.2 81 16 135/67 (89) 94 11/16/16 00:30 98.3 72 16 125/82 (96) 94 11/15/16 20:30 98.2 107 16 117/67 (84) 94 11/15/16 17:25 92 21 11/15/16 16:00 98.0 60 18 123/69 (87) 91 I/O 11/15/16 11/15/16 11/15/16 11/16/16 11/16/16 11/16/16 06:59 14:59 22:59 06:59 14:59 22:59 Intake Total 965 ml 360 ml Balance 965 ml 360 ml Intake Oral 360 ml IV Total 965 ml # Voids 3 Result Diagram: 11/16/16 0915 11/15/16 [address] Angiography 11/14/16 0000 Signed Impressions: Service Date/Time: Monday, November 14, 2016 12:36 - CONCLUSION: Emphysematous changes without central pulmonary emboli. Louis Rae MD FACR Chest X-Ray 11/12/162047 Signed Impressions: Service Date/Time: October 21:01 - CONCLUSION: Minimal suspected right base atelectasis or consolidation. Cardiomegaly. Felipe Catherine MD Objective Remarks GENERAL: Well-developed well-nourished. In no acute distress. Resting comfortably. SKIN: Warm and dry. Face with improving mild generalized edema. No generalized rash. HEENT: Normocephalic. Pupils equal and round. Mucous membranes pink and moist. CARDIOVASCULAR: Regular rate and rhythm. No murmur appreciated. RESPIRATORY: Bilateral expiratory wheezing and rhonchi. GASTROINTESTINAL: Abdomen soft, non-tender, nondistended. Bowel sounds x4. MUSCULOSKELETAL: No obvious deformities. No clubbing or cyanosis. No edema. NEUROLOGICAL: Awake and alert. No focal neurological deficits. Moves upper and lower extremities spontaneously. Normal speech. PSYCHIATRIC: Appropriate mood and affect; insight and judgment normal. Medications and IVs Current Medications Medications (Trade) Dose Ordered Sig/Viky Route Start Time Stop Time Status Last Admin (NS Flush) 2 ml UNSCH PRN IV FLUSH 11/12/16 23:00 11/15/16 00:37 (NS Flush) 2 ml BID IV FLUSH 11/13/16 09:00 11/16/16 08:05 (Narcan Inj) 0.4 mg UNSCH PRN IV 11/12/16 23:00 (Atrovent Neb) 0.5 mg Q2HR NEB PRN NEB 11/12/16 23:00 11/14/16 06:30 (Neurontin) 100 mg TID PO 11/13/16 09:00 11/16/16 13:21 (Keppra) 1,000 mg BID PO 11/13/16 01:00 11/16/16 08:05 (Morphine Inj) 2 mg Q3H PRN IV PUSH 11/13/16 01:00 11/16/16 13:22 (Toprol Xl) 50 mg DAILY PO 11/13/16 09:00 11/16/16 08:05 (Xarelto) 20 mg DAILY PO 11/13/16 09:00 11/16/16 08:06 (Pravachol) 20 mg DAILY PO 11/13/16 09:00 11/16/16 08:05 (D50w (Vial) Inj) 50 ml UNSCH PRN IV 11/13/16 10:45 (Glucagon Inj) 1 mg UNSCH PRN OTHER 11/13/16 10:45 (Benadryl) 25 mg Q6H PO 11/13/16 16:00 11/16/16 08:06 (Zofran Inj) 4 mg Q6HR PRN IV PUSH 11/13/16 14:30 11/13/16 17:00 (NovoLOG SUPPLEMENTAL SCALE) 1 ACHS SLIDING SCALE SQ 11/14/16 07:00 11/16/16 11:03 (Mucinex Er) 600 mg BID PO 11/14/16 09:00 11/16/16 08:06 (Tessalon) 100 mg TID PRN PO 11/14/16 08:45 11/15/16 22:53 Levofloxacin/ Dextrose 150 ml @ 100 mls/hr Q24H IV 11/14/16 12:00 11/16/16 11:05 (Duoneb Neb) 1 ampule Q6HR WHILE AWAKE NEB NEB 11/14/16 14:00 11/16/16 13:40 (Deltasone) 20 mg BID PO 11/15/16 21:00 11/16/16 08:06 A/P Problem List: (1) Chest pain ICD Code: R07.9 - Chest pain, unspecified Status: Resolved (2) Hypokalemia ICD Code: E87.6 - Hypokalemia Status: Resolved (3) Allergic reaction ICD Code: T78.40XA - Allergy, unspecified, initial encounter Status: Acute (4) A-fib ICD Code: I48.91 - Unspecified atrial fibrillation Status: Chronic Assessment and Plan 56 y/o male with a history of HTN, pre diabetic, [place], COPD, Seizures, and CAD presented to the ED via Evac with complaints of facial swelling, chest pain, and sob. Chest pain, atypical: Suspect secondary to URI as below. ACS ruled out per protocol with unremarkable serial cardiac enzymes and EKGs. Lower risk for thrombosis on Xarelto. 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 ACS ruled out. Pain control as needed. Allergic reaction, unknown source, somewhat improved -Solumedrol and epi given by evac -Cont to monitor -Benadryl IV PRN -Given IV Solu-Medrol 3, continue on oral prednisone taper. - Improving on current regimen Hypokalemia, potassium 3.1, mag 2 -Potassium improved to normal limits on BMP after oral replacement COPD exacerbation: Recent generalized malaise, vomiting, and cough. Cough has been persistent over a week, possibly contributing to atypical chest pain. No leukocytosis or fevers. Chest x ray shows minimal suspected right base atelectasis or consolidation. CTA with emphysema. No PE. Failed walk test 11/16. -Atrovent scheduled and PRN -Antitussive scheduled and as needed. Acapella. -Continue IV Levaquin. Continue steroids and nebs. Encourage ambulation. -Smoking cessation instruction. -will likely need home oxygen. Will notify case management. New onset diabetes mellitus: Reports borderline diabetes in the past. Hemoglobin A1c 8.3. Hyperglycemia secondary to steroids. -Educated patient regarding diabetes management -Monitor Accu-Cheks and cover with SSI -Diabetic diet. -Start po hypoglycemic upon discharge. -Consult meat scrubber and dietitian -Wean steroids as tolerated. Afib, chronic -Cont home medications metoprolol and Xarelto, monitor tele Seizures, chronic -Cont home medications gabapentin and Keppra Thrombocytopenia Chronic in nature. - Follow CBC. Consider holding anticoagulation if platelet count under 50. Stable. DVT prophylaxis: Xarelto Discharge Planning Anticipate d/c home in AM with or without oxygen Problem Qualifiers (1) Allergic reaction: Qualified Codes: T78.40XA - Allergy, unspecified, initial encounter Mic Dumont DO Nov 16, 2016 15:11
[2016-11-17] VITALS (8 sets, daily range): BP systolic 90–125; BP diastolic 52–77; PULSE 61–86; RESP 18; TEMP 97.9–98.3; O2SAT 92–95
[2016-11-17] MEDS: MORPHINE SULFATE 4 MG/ML INJ IV PUSH PRN ×3 (02:17→13:11)
[2016-11-17] MEDS: diphenhydrAMINE HCL 25 MG CAP PO SCH ×2 (04:34→09:06)
--- NOTE | 2016-11-17 06:17 | RADRPT ---
EXAM DATE/TIME: 11/17/2016 05:05 [facility] COMPARISON: CHEST SINGLE AP, November 12, 2016, 21:01. INDICATIONS : Short of breath. MEDICAL HISTORY : Hypercholesterolemia. Hypertension. Myocardial infarction. A-fib. SURGICAL HISTORY : Pacemaker. CABG. Abdominal aortic aneurysm repair. Cardiac ENCOUNTER: Subsequent ACUITY: 4 - 6 days PAIN SCORE: 0/10 LOCATION: Bilateral chest FINDINGS: Stable median sternotomy wires. Stable right sided single lead AICD device. No significant focal pleu ral or parenchymal opacities. Cardiomediastinal contours are stable. Remainder of the exam is unchang ed. CONCLUSION: 1. No acute abnormality or significant interval change. Sim Reynoso MD on November 17, 2016 at 6:14 Board Certified Radiologist. This report was verified electronically.
[2016-11-17] MEDS: INSULIN ASPART SUPPLEMENTAL SCALE SQ SCH ×2 (06:42→11:44)
[2016-11-17] MEDS: PRAVASTATIN SOD 20 MG TAB PO SCH (09:00)
[2016-11-17] MEDS: METOPROLOL SUCCINATE 50 MG EXTENDED RELEASE TAB PO SCH (09:05)
[2016-11-17] MEDS: BENZONATATE 100 MG CAP PO PRN (09:05)
[2016-11-17] MEDS: predniSONE 20 MG TAB PO SCH (09:05)
[2016-11-17] MEDS: GABAPENTIN 100 MG CAP PO SCH ×2 (09:05→12:56)
[2016-11-17] MEDS: RIVAROXABAN 20 MG TAB PO SCH (09:06)
[2016-11-17] MEDS: SODIUM CHLORIDE 0.9% FLUSH 10 ML FLUSH IV FLUSH SCH (09:08)
[2016-11-17] MEDS: guaiFENesin E.R. 600 MG TAB PO SCH (09:12)
[2016-11-17] MEDS: levETIRAcetam 500 MG TAB PO SCH (09:12)
[2016-11-17] MEDS: RESP: ALBUTEROL 2.5 MG/IPRATROPIUM 0.5 MG NEB (SCH) NEB ×2 (09:55→12:39)
[2016-11-17] MEDS ORDERED: PRED10PA PO (12:52)
[2016-11-17] MEDS ORDERED: LEVA750T9 PO (12:52)
[2016-11-17] MEDS ORDERED: BLOO1KIT49 (12:52)
[2016-11-17] MEDS ORDERED: GLIP5TAB8 PO (12:52)
[2016-11-17] MEDS ORDERED: BENZ100 PO (12:52)
--- NOTE | 2016-11-17 12:56 | HHI.DCPOC ---
Discharge Care Plan Diagnosis: (1) Diabetes mellitus (2) A-fib (3) COPD (chronic obstructive pulmonary disease) Goals to Promote Your Health * To prevent worsening of your condition and complications * To maintain your health at the optimal level Directions to Meet Your Goals Take your medications as prescribed Follow your dietary instruction Follow activity as directed Keep your appointments as scheduled Take your immunizations and boosters as scheduled If your symptoms worsen call your PCP, if no PCP go to Urgent Care Center or Emergency Room Smoking is Dangerous to Your Health. Avoid second hand smoke Call the 24-hour hour crisis hotline for domestic abuse at Mic Dumont DO Nov 17, 2016 12:56
[2016-11-17] MEDS: LEVOFLOXACIN 750 MG PREMIX INJ 150 ML IV SCH (12:57)
--- NOTE | 2016-11-17 13:37 | HHI.DS ---
Discharge Summary Admission Date Nov 14, 2016 at 10:59 Discharge Date: Nov 17, 2016 Admitting Diagnosis chest pain, allergic reaction (1) Chest pain ICD Code: R07.9 - Chest pain, unspecified Status: Resolved (2) Hypokalemia ICD Code: E87.6 - Hypokalemia Status: Resolved (3) Allergic reaction ICD Code: T78.40XA - Allergy, unspecified, initial encounter Status: Acute (4) A-fib ICD Code: I48.91 - Unspecified atrial fibrillation Status: Chronic Procedures None Brief History - From Admission Written by MAI Friedman acting as scribe for [Sharmila] on 11/13/16 at 00: 44. 56 y/o female with a history of HTN, pre diabetic, NH, COPD, Seizures, and CAD presented to the ED via [facility] with complaints of facial swelling, chest pain, and sob. He states he woke up left eye swollen, then his right eye became swollen and it extended down his face. Shortly after he began to have chest pain and sob. He states the chest pain is constant with radiation to his left arm and associated diaphoresis. He is on chronic anticoagulation. He was given morphine and the pain subsided for some time, but he states it is back. He denies eating any thing new or using any new medication or soaps. He states he has had a cold with congestion, yellow sputum, and running nose, and he was treating it with alkalizer cold medicine OTC for the last 7-8 days with improvement. He did have some associated dizziness and nausea. CBC/BMP: 11/16/16 0915 11/15/16 0805 Significant Findings Laboratory Tests Test 11/15/16 08:05 11/16/16 09:15 Random Glucose 146 MG/DL (74-106) Estimat Glomerular Filtration Rate 88 ML/MIN (>89) White Blood Count 14.8 TH/MM3 (4.0-11.0) Red Blood Count 4.03 MIL/MM3 (4.50-5.90) Hemoglobin 11.1 GM/DL (13.0-17.0) Hematocrit 35.2 % (39.0-51.0) Mean Corpuscular Hemoglobin Concent 31.6 % (32.0-36.0) Platelet Count 93 TH/MM3 (150-450) Imaging Last Impressions Chest X-Ray 11/17/16 0600 Signed Impressions: Service Date/Time: Thursday, November 17, 2016 05:05 - CONCLUSION: 1. No acute abnormality or significant interval change. Sim Reynoso MD CT Angiography 11/14/16 0000 Signed Impressions: Service Date/Time: Monday, November 14, 2016 12:36 - CONCLUSION: Emphysematous changes without central pulmonary emboli. Luois Rae MD FACR PE at Discharge GENERAL: Well-developed well-nourished. In no acute distress. Resting comfortably. SKIN: Warm and dry. Face with improving mild generalized edema. No generalized rash. HEENT: Normocephalic. Pupils equal and round. Mucous membranes pink and moist. CARDIOVASCULAR: Regular rate and rhythm. No murmur appreciated. RESPIRATORY: Bilateral expiratory wheezing and rhonchi. GASTROINTESTINAL: Abdomen soft, non-tender, nondistended. Bowel sounds x4. MUSCULOSKELETAL: No obvious deformities. No clubbing or cyanosis. No edema. NEUROLOGICAL: Awake and alert. No focal neurological deficits. Moves upper and lower extremities spontaneously. Normal speech. PSYCHIATRIC: Appropriate mood and affect; insight and judgment normal. Pt update on day of discharge The patient says he still a shortness of breath. He says he will not uses home oxygen even if he requires it. He would like to go home today. Discussed with nursing at the bedside. Hospital Course Chest pain, atypical ACS ruled out per protocol with unremarkable serial cardiac enzymes and EKGs. 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 CTA negative for PE. His symptoms improved. Allergic reaction Unknown source. Solumedrol and epinephrine given by evac. He received Benadryl IV PRN. He will continue an oral prednisone taper. Improved. COPD exacerbation Recent generalized malaise, vomiting and cough. Cough has been persistent over a week. No leukocytosis or fevers. Chest x ray shows minimal suspected right base atelectasis or consolidation. CTA with emphysema. No PE. Failed walk test . He was placed on Atrovent scheduled and PRN. He received antitussives scheduled and as needed as well as Acapella and incentive spirometry. He received IV Levaquin. He was continued on steroids and nebs. We encouraged ambulation. He received smoking cessation instruction. He requires home oxygen per walk test. The patient currently refuses to use home oxygen. He will be referred to a bike technician. He will continue a prednisone taper. He will continue Levaquin. New onset diabetes mellitus Reports borderline diabetes in the past. Hemoglobin A1c 8.3%. Hyperglycemia exacerbated by steroids. We educated the patient regarding diabetes management. We monitored Accu-Cheks and covered with SSI. He was placed on a diabetic diet. Will start Glipizide upon discharge. Wean steroids. Follow-up with PCP. Thrombocytopenia Chronic in nature. CBC was stable. He was continued on his home Xarelto. Pt Condition on Discharge: Stable Discharge Disposition: Discharge Home Discharge Time: > 30 minutes Discharge Instructions DIET: Follow Instructions for: Heart Healthy Diet Activities you can perform: Weight Bearing as Rossana Follow up Referrals: PCP Follow-up - 1 Week Pulmonology - 1 Week with Roni Fisher MD New Medications: Albuterol 18 GM Inh (Ventolin Hfa 18 GM Inh) 90 Mcg/Act Aer 2 PUFF INH Q4H PRN for SHORTNESS OF BREATH, #1 INHALER 0 Refills Blood Glucose Monitoring Suppl (Blood Glucose System Donny) 1 Kit Kit KIT, #1 Glipizide (Glipizide) 5 Mg Tab 5 MG PO DAILY for Blood Sugar Management, #30 TAB 0 Refills Take 30 minutes before a meal Levofloxacin (Levaquin) 750 Mg Tablet 750 MG PO DAILY for Infection for 4 Days, TAB 0 Refills Take first dose 11/18 Prednisone (21) 10 mg tab Dose Pack (Prednisone (21) 10 mg tab Dose Pack) 10 Mg Pack 10 MG PO DIRECTED for Inflammation, #1 DSPK 0 Refills Benzonatate (Tessalon Perles) 100 Mg Cap 100 MG PO TID PRN for COUGH for 5 Days, CAP Continued Medications: Gabapentin (Gabapentin) 100 Mg Cap 100 MG PO TID, #90 CAP 0 Refills Levetiracetam (Levetiracetam) 1,000 Mg Tab 1000 MG PO BID for Control Seizures, #60 TAB 0 Refills Metoprolol Succinate ER 24 HR (Metoprolol Succinate ER 24 HR) 50 Mg Tab 50 MG PO DAILY, #30 TAB 0 Refills Rivaroxaban (Xarelto) 20 Mg Tab 20 MG PO DAILY for Blood Clot Prevention, TAB 0 Refills Simvastatin (Simvastatin) 10 Mg Tab 10 MG PO DAILY for Cholesterol Management, #30 TAB 0 Refills Mic Dumont DO Nov 17, 2016 13:37
[2016-11-17] MEDS ORDERED: VENTAER INH (13:41)
== END 2016-11-17 15:34 | disposition home or self-care (01) | DRG 915 ==
LOC: NEPE 20:08 → NEDA 22:51 → NEPFCDU 11-13 01:06 → OBSVTOIN 11-14 10:59 → N05B 11-14 18:46
PROVIDERS: ADMIT Hospitalist; ATTEND Hospitalist
DX: T78.40XA Allergy, unspecified, initial encounter (principal); J18.9 Pneumonia, unspecified organism; J96.01 Acute respiratory failure with hypoxia; I11.0 Hypertensive heart disease with heart failure; D69.6 Thrombocytopenia, unspecified; I50.9 Heart failure, unspecified; E11.65 Type 2 diabetes mellitus with hyperglycemia; J44.0 Chronic obstructive pulmonary disease with (acute) lower respiratory infection; J44.1 Chronic obstructive pulmonary disease with (acute) exacerbation; I48.2 Chronic atrial fibrillation; R07.9 Chest pain, unspecified; G40.909 Epilepsy, unspecified, not intractable, without status epilepticus; E87.6 Hypokalemia; F17.210 Nicotine dependence, cigarettes, uncomplicated; I25.10 Atherosclerotic heart disease of native coronary artery without angina pectoris; T38.0X5A Adverse effect of glucocorticoids and synthetic analogues, initial encounter; J06.9 Acute upper respiratory infection, unspecified; E78.00 Pure hypercholesterolemia, unspecified; Z79.01 Long term (current) use of anticoagulants; Z95.5 Presence of coronary angioplasty implant and graft; Z95.1 Presence of aortocoronary bypass graft; I25.2 Old myocardial infarction
CPT/HCPCS: 71010; 71275; 80048; 82550; 82948; 83036; 83735; 84484; 85025; 85027; 85610; 85730; 93005; 94150; 94620; 94640; 94664; 94667; 94668; 96374; 96375; 96376; G0378; J1200; J1815; J1956; J2270; J2405; J2920; J2930; J7030; J7512; J7644; Q9967

== ENCOUNTER 2016-11-25 16:14 | Observation (INO) | payer MEDICARE, MEDICAID ==
[~2016-11-25] VITALS: Ht 182.9 cm; Wt 90.0 kg
[~2016-11-25 16:14] MED LIST changes: -ATOR20TA42 PO; +BENZ100 PO; +BLOO1KIT49; -FOLI1 PO; +GABA100C4 PO; -GABA300C3 PO; +GLIP5TAB8 PO; -HYDR-3533 PO; -KEPP1000 PO; +LEVA750T9 PO; +LEVE10003 PO; -LISI5 PO; -METO25 PO; +METO50TA11 PO; +PRED10PA PO; -PROT40TA PO; -RIVA20 PO; +SIMV10TA PO; -THIA100T PO; -TYLE3 PO; +VENTAER INH; +XARE20TA PO
[2016-11-25 16:42] VITALS: BP 109/55; PULSE 82; RESP 24; TEMP 97.4; O2SAT 100
--- NOTE | 2016-11-25 16:58 | PD ---
HPI Chief Complaint: Cardiac Complaint Time Seen by Provider: 16:53 Travel History International Travel<30 days: No Contact w/Intl Traveler<30days: No Traveled to known affect area: No History of Present Illness HPI 56-year-old male with history of COPD, angina, thrombocytopenia, and recent urinary frequency and burning. Patient states he's had intermittent substernal chest pain today, with radiation through to his back and left flank. Patient has no nausea or vomiting. He has recently been admitted for similar complaints on November 14, discharged home on Levaquin and prednisone taper. Patient states symptoms started at 3 PM today and worsened today which brought him in via ambulance. Patient is allergic to nitroglycerin and aspirin. Patient continues to have a productive cough but denies fever or chills. Patient denies nausea or vomiting. Patient is allergic to aspirin, cefazolin, and nitroglycerin. PFSH Past Medical History Hx Anticoagulant Therapy: Yes (Xarelto ) Arthritis: No Asthma: No Atrial Fibrillation: Yes Autoimmune Disease: No Blood Disorders: No Anxiety: No Depression: No Heart Rhythm Problems: Yes (aicd 1997) Cancer: No Cardiac Catheterization: Yes ("two times"; ABLATION) Cardiovascular Problems: Yes High Cholesterol: No Chemotherapy: No Chest Pain: Yes Congestive Heart Failure: Yes COPD: Yes Cerebrovascular Accident: No Diabetes: Yes Diminished Hearing: No Endocrine: No Gastrointestinal Disorders: Yes GERD: No Glaucoma: No Genitourinary: No Headaches: Yes Hepatitis: No Hiatal Hernia: No Hypertension: Yes Immune Disorder: No Implanted Vascular Access Dvce: Yes Kidney Stones: No Musculoskeletal: No Neurologic: Yes (neuropathy) Psychiatric: No Reproductive: No Respiratory: Yes Migraines: No Myocardial Infarction: Yes Radiation Therapy: No Renal Failure: No Seizures: Yes (EPILEPSY 2001) Sickle Cell Disease: No Sleep Apnea: No Thyroid Disease: No Ulcer: No PNEUMOCCOCAL Vaccine (Year): 2 Past Surgical History Abdominal Aneurysm Repair: Yes (1995) Abdominal Surgery: No Appendectomy: No Arteriovenous Shunt: No Body Medical Devices: PACER Cardiac Surgery: Yes (CABG X 3 VESSEL IN , pacemaker removed 8-9 months ago) Cholecystectomy: No Coronary Artery Bypass Graft: Yes Coronary Stent: Yes Ear Surgery: No Endocrine Surgery: No Eye Surgery: No Genitourinary Surgery: No Gynecologic Surgery: No Insulin Pump: No Joint Replacement: No Oral Surgery: No Pacemaker: Yes (AICD VIA DR GREGORIO) Thoracic Surgery: No Other Surgery: Yes (DEFIB PACER IMPLANT, CABG) Social History Alcohol Use: Yes (Every other day) Tobacco Use: Yes (1 PACK CIG DAILY) Substance Use: No Allergies-Medications (Allergen,Severity, Reaction): Coded Allergies: cefazolin (Unverified Allergy, Severe, Hives, 10/28/16) nitroglycerin (Unverified Adverse Reaction, Intermediate, Nausea/Vomiting , 10/28/16) aspirin (Verified Adverse Reaction, Unknown, gi upset, 11/25/16) Reported Meds & Prescriptions Reported Meds & Active Scripts Active Ventolin Hfa 18 GM Inh (Albuterol Sulfate) 90 Mcg/Act Aer 2 Puff INH Q4H PRN Levaquin (Levofloxacin) 750 Mg Tablet 750 Mg PO DAILY 4 Days Take first dose 11/18 Blood Glucose System Donny (Blood Glucose Monitoring Suppl) 1 Kit Kit Kit Glipizide 5 Mg Tab 5 Mg PO DAILY Take 30 minutes before a meal Prednisone (21) 10 mg tab Dose Pack (Prednisone) 10 Mg Pack 10 Mg PO DIRECTED Tessalon Perles (Benzonatate) 100 Mg Cap 100 Mg PO TID PRN 5 Days Reported Metoprolol Succinate ER 24 HR (Metoprolol Succinate) 50 Mg Tab 50 Mg PO DAILY Gabapentin 100 Mg Cap 100 Mg PO TID Levetiracetam 1,000 Mg Tab 1,000 Mg PO BID Simvastatin 10 Mg Tab 10 Mg PO DAILY Xarelto (Rivaroxaban) 20 Mg Tab 20 Mg PO DAILY Review of Systems Except as stated in HPI: all other systems reviewed are Neg General / Constitutional: No: Fever, Chills Eyes: No: Visual changes HENT: No: Headaches Cardiovascular: Positive: Chest Pain or Discomfort, Dyspnea on exertion, No: Palpitations, Irregular Rhythm, Tachycardia, Diaphoresis, Syncope Respiratory: Positive: Cough, Shortness of Breath, Wheezing, No: Sneezing, Orthopnea, Hemoptysis, Night Sweats, Pleuritic Pain Gastrointestinal: No: Nausea, Abdominal Pain Genitourinary: Positive: Urgency, Frequency, Dysuria, Flank Pain Musculoskeletal: No: Pain Skin: No Rash Neurologic: No: Weakness Psychiatric: No: Depression Endocrine: No: Polydipsia Hematologic/Lymphatic: No: Easy Bruising Physical Exam Exam Limitations: Poor Historian Narrative GENERAL: Patient appears in mild to moderate distress. SKIN: Warm and dry. Normal Color. Normal turgor. No diaphoresis. HEAD: Atraumatic. Normocephalic. EYES: Pupils equal and round. No scleral icterus. No injection or drainage. ENT: No nasal bleeding or discharge. Mucous membranes pink and moist. Pharynx is clear. Airway is patent. NECK: Trachea midline. No JVD. Supple and nontender. CARDIOVASCULAR: Regular rate and rhythm. Arms are gallops or rubs appreciated. RESPIRATORY: No accessory muscle use. Diffuse wheezes and rales throughout to auscultation. Breath sounds equal bilaterally. GASTROINTESTINAL: Abdomen soft, non-tender, nondistended. Hepatic and splenic margins not palpable. No significant CVA tenderness. MUSCULOSKELETAL: Extremities without clubbing, cyanosis, but bilateral 2+ pitting edema is present. No obvious deformities. NEUROLOGICAL: Awake and alert. No obvious cranial nerve deficits. Motor grossly within normal limits. Five out of 5 muscle strength in the arms and legs. Normal speech. PSYCHIATRIC: Appropriate mood and affect; insight and judgment normal. Data Data Last Documented VS Vital Signs Date Time Temp Pulse Resp B/P (MAP) Pulse Ox O2 Delivery O2 Flow Rate FiO2 11/25/16 17:21 96 Nasal Cannula 2.00 11/25/16 16:42 97.4 82 24 109/55 (73) Orders Orders Complete Blood Count With Diff (11/25/16 16:58) Comprehensive Metabolic Panel (11/25/16 16:58) B-Type Natriuretic Peptide (11/25/16 16:58) Act Partial Throm Time (Ptt) (11/25/16 16:58) Prothrombin Time / Inr (Pt) (11/25/16 16:58) Magnesium (Mg) (11/25/16 16:58) Ckmb (Isoenzyme) Profile (11/25/16 16:58) Troponin I (11/25/16 16:58) Urinalysis - C+S If Indicated (11/25/16 16:58) Iv Access Insert/Monitor (11/25/16 16:58) Electrocardiogram (11/25/16 16:58) Ecg Monitoring (11/25/16 16:58) Oximetry (11/25/16 16:58) Oxygen Administration (11/25/16 16:58) Chest, Single Ap (11/25/16 16:58) Sodium Chloride 0.9% Flush (Ns Flush) (11/25/16 17:00) Furosemide Inj (Lasix Inj) (11/25/16 17:00) Methylprednisolone So Succ Inj (Solumedr (11/25/16 17:00) Albuterol-Ipratropium Neb (Duoneb Neb) (11/25/16 17:00) Morphine Inj (Morphine Inj) (11/25/16 17:00) Ondansetron Inj (Zofran Inj) (11/25/16 17:00) Lipase (11/25/16 17:00) Urine Culture (11/25/16 17:40) Nitrofurantoin Monohyd Macrocr (Macrobid (11/25/16 18:30) Sulfamet-Trimeth Ds 800-160 Mg (Bactrim (11/25/16 19:15) Activity Bed Rest With Brp (11/25/16 19:35) Vital Signs (Adult) Q4H (11/25/16 19:35) Cardiac Rhythm .As Directed (11/25/16 19:35) Notify Dr: Other .PRN (11/25/16 19:35) Notify Dr. Parameters (11/25/16 19:35) Resp Oxygen Nasal Cannula (11/25/16 ) Ckmb (Isoenzyme) Profile (11/25/16 19:35) Ckmb (Isoenzyme) Profile (11/25/16 22:35) Troponin I (11/25/16 19:35) Troponin I (11/25/16 22:35) Electrocardiogram (11/25/16 19:35) Electrocardiogram (11/25/16 22:35) ^ Obtain (11/25/16 19:35) Sodium Chloride 0.9% Flush (Ns Flush) (11/25/16 19:45) Sodium Chloride 0.9% Flush (Ns Flush) (11/25/16 21:00) Morphine Inj (Morphine Inj) (11/25/16 19:45) Ondansetron Inj (Zofran Inj) (11/25/16 19:45) Famotidine (Pepcid) (11/25/16 21:00) Treating Inspector / Telemetry FEI.Q8H (11/25/16 19:35) Sulfamet-Trimeth Ds 800-160 Mg (Bactrim (11/25/16 21:00) Admit Order (Ed Use Only) (11/25/16 19:35) Labs Laboratory Tests Test 11/25/16 17:00 11/25/16 17:40 White Blood Count 12.8 TH/MM3 Red Blood Count 4.28 MIL/MM3 Hemoglobin 11.9 GM/DL Hematocrit 37.1 % Mean Corpuscular Volume 86.7 FL Mean Corpuscular Hemoglobin 27.9 PG Mean Corpuscular Hemoglobin Concent 32.1 % Red Cell Distribution Width 17.3 % Platelet Count 171 TH/MM3 Mean Platelet Volume 9.3 FL Neutrophils (%) (Auto) 76.3 % Lymphocytes (%) (Auto) 16.8 % Monocytes (%) (Auto) 6.1 % Eosinophils (%) (Auto) 0.4 % Basophils (%) (Auto) 0.4 % Neutrophils # (Auto) 9.8 TH/MM3 Lymphocytes # (Auto) 2.1 TH/MM3 Monocytes # (Auto) 0.8 TH/MM3 Eosinophils # (Auto) 0.1 TH/MM3 Basophils # (Auto) 0.1 TH/MM3 CBC Comment DIFF FINAL Differential Comment Prothrombin Time 12.4 SEC Prothromb Time International Ratio 1.1 RATIO Activated Partial Thromboplast Time 26.7 SEC Blood Urea Nitrogen 3 MG/DL Creatinine 1.10 MG/DL Random Glucose 108 MG/DL Total Protein 7.8 GM/DL Albumin 3.1 GM/DL Calcium Level 8.8 MG/DL Magnesium Level 2.2 MG/DL Alkaline Phosphatase 228 U/L Aspartate Amino Transf (AST/SGOT) 33 U/L Alanine Aminotransferase (ALT/SGPT) 27 U/L Total Bilirubin 0.9 MG/DL Sodium Level 132 MEQ/L Potassium Level 3.8 MEQ/L Chloride Level 96 MEQ/L Carbon Dioxide Level 25.7 MEQ/L Anion Gap 10 MEQ/L Estimat Glomerular Filtration Rate 70 ML/MIN Total Creatine Kinase 65 U/L Troponin I LESS THAN 0.02 NG/ML B-Type Natriuretic Peptide 46 PG/ML Lipase 105 U/L Urine Color LIGHT-YELLOW Urine Turbidity HAZY Urine pH 6.5 Urine Specific [place] 1.003 Urine Protein NEG mg/dL Urine Glucose (UA) NEG mg/dL Urine Ketones NEG mg/dL Urine Occult Blood SMALL Urine Nitrite NEG Urine Bilirubin NEG Urine Urobilinogen LESS THAN 2.0 MG/DL Urine Leukocyte Esterase LARGE Urine RBC 26 /hpf Urine WBC 148 /hpf Urine WBC Clumps FEW Urine Squamous Epithelial Cells <1 /hpf Urine Bacteria OCC /hpf Microscopic Urinalysis Comment CULTURE INDICATED MDM Medical Decision Making Medical Screen Exam Complete: Yes Emergency Medical Condition: Yes Medical Record Reviewed: Yes Differential Diagnosis Atypical chest pain. CHF. COPD with exacerbation. Pneumonia. Pancreatitis. Gastritis. Cardiac syndrome. Narrative Course Patient appears medically stable at time of exam. He is seen in the ambulance [facility] and is awaiting bed placement. Labs ordered including CBC, CMP, lipase, cardiac panel, and urinalysis. Chest x-ray and EKG is ordered. EKG shows sinus rhythm unchanged from previous. This is reviewed with Dr. Barber. IV access is obtained and the patient is given 4 mg Zofran IV as well as 4 mg morphine IV, he is also given 125 mg Solu-Medrol IV and 40 mg Lasix IV. Patient is given DuoNeb every 15 minutes 3. Chest x-ray shows no acute findings per radiologist. CBC shows leukocytosis of 12.8, hemoglobin of 11.9, hematocrit 37.1. Coagulation studies show PT of 12.4, INR of 1.1, APTT of 26.7 Chemistries show sodium 132, chloride of 96, BUN of 3, creatinine of 1.10, random glucose 108, alkaline phosphatase is elevated to 28, troponin is 0.02. BNP is 46. Albumin is 3.1, lipase is 105. Urinalysis is suggestive for urinary tract infection. Urine culture is pending. Patient is given 1 dose of Macrodantin 100 mg by mouth now. He is also given Bactrim DS by mouth one now. Patient is given Bactrim DS twice a day 10 days Patient is discussed with and seen with Dr. Escoto who recommends the patient be admitted to the chest pain center due to his chest pain complaints that started approximately 3 PM today. First set of cardiac labs are normal at this time. Patient will be admitted to the chest pain center. Diagnosis Primary Impression: Chest pain Qualified Codes: R07.2 - Precordial pain Additional Impressions: Urinary tract infection Qualified Codes: N30.00 - Acute cystitis without hematuria COPD (chronic obstructive pulmonary disease) Qualified Codes: J44.9 - Chronic obstructive pulmonary disease, unspecified Admitting Information Admitting Physician Requests: Observation Condition: Stable Remington Reis Nov 25, 2016 16:58
[2016-11-25] MEDS ORDERED: SODIUM CHLORIDE 0.9% FLUSH 10 ML FLUSH IVF PRN (17:00)
[2016-11-25] MEDS ORDERED: MORPHINE SULFATE 4 MG/ML INJ IV PUSH ONE (17:00)
[2016-11-25] MEDS ORDERED: FUROSEMIDE 40 MG/4 ML VIAL IVP ONE (17:00)
[2016-11-25] MEDS ORDERED: methylPREDNISolone SOD SUCC 125 MG/2 ML VIAL IV PUSH ONE (17:00)
[2016-11-25] MEDS ORDERED: ONDANSETRON HCL 4 MG/2 ML VIAL IV PUSH ONE (17:00)
[2016-11-25] MEDS: RESP: ALBUTEROL 2.5 MG/IPRATROPIUM 0.5 MG NEB (SCH) INH (17:18)
[2016-11-25 17:21] VITALS: O2SAT 96
--- NOTE | 2016-11-25 17:28 | RADRPT ---
EXAM DATE/TIME: 11/25/2016 17:21 [facility] COMPARISON: CHEST SINGLE AP, November 17, 2016, 5:05. INDICATIONS : Chest pain and shortness of breath. MEDICAL HISTORY : Chronic obstructive pulmonary disease. Hypertension Congestive heart failure. AFIB. SURGICAL HISTORY : Abdominal aortic aneurysm repair. CABG. Pacemaker. Ablation. ENCOUNTER: Initial ACUITY: 1 day PAIN SCORE: 8/10 LOCATION: Left upper chest FINDINGS: A single view of the chest demonstrates the lungs to be symmetrically aerated without evidence of mas s, infiltrate or effusion. Previous bypass surgeryb Pacer on the right. The compensated cardiomega ly with normal vascularity. Osseous structures are intact. CONCLUSION: Complete cardiomegaly with pacer otherwise negative. Louis Rae MD FACR on November 25, 2016 at 17:26 Board Certified Radiologist. This report was verified electronically.
[2016-11-25 17:33] LABS: AUTOMATED NEUTROPHIL # 9.8 TH/MM3 (1.8-7.7); BASOPHIL # 0.1 TH/MM3 (0-0.2); BASOPHIL % 0.4 % (0.0-2.0); EOSINOPHIL # 0.1 TH/MM3 (0-0.4); EOSINOPHIL % 0.4 % (0.0-4.0); HEMATOCRIT 37.1 % (39.0-51.0); HEMO FLAGS DIFF FINAL; LYMPH % 16.8 % (9.0-44.0); LYMPHOCYTE # 2.1 TH/MM3 (1.0-4.8); MEAN CELL VOLUME 86.7 FL (80.0-100.0); MEAN CORPUSCULAR HEMOGLOBIN 27.9 PG (27.0-34.0); MEAN CORPUSCULAR HGB CONC 32.1 % (32.0-36.0); MONO % 6.1 % (0.0-8.0); NEUT % 76.3 % (16.0-70.0); PLATELET COUNT 171 TH/MM3 (150-450); RED BLOOD COUNT 4.28 MIL/MM3 (4.50-5.90); RED CELL DISTRIBUTION WIDTH 17.3 % (11.6-17.2); WHITE BLOOD COUNT 12.8 TH/MM3 (4.0-11.0)
[2016-11-25 17:40] LABS: APTT (PATIENT) 26.7 SEC (24.3-30.1); INTERNATIONAL NORMALIZED RATIO 1.1 RATIO; PROTHROMBIN TIME - PATIENT 12.4 SEC (9.8-11.6)
[2016-11-25 17:55] LABS: ALT (GPT) 27 U/L (12-78); ANION GAP 10 MEQ/L (5-15); AST (GOT) 33 U/L (15-37); BICARBONATE 25.7 MEQ/L (21.0-32.0); BLOOD UREA NITROGEN 3 MG/DL (7-18); CHLORIDE 96 MEQ/L (98-107); GLOMERULAR FILTRATION RATE 70 ML/MIN (>89); MAGNESIUM 2.2 MG/DL (1.5-2.5); POTASSIUM 3.8 MEQ/L (3.5-5.1); SODIUM (NA) 132 MEQ/L (136-145)
[2016-11-25 18:00] LABS: ALKALINE PHOSPHATASE 228 U/L (45-117); TOTAL BILIRUBIN ADULT 0.9 MG/DL (0.2-1.0)
[2016-11-25 18:01] LABS: CREATINE KINASE 65 U/L (39-308)
[2016-11-25 18:16] LABS: BACTERIA, URINE OCC /hpf; BLOOD, URINE SMALL (NEG); COMMENT (UR) CULTURE INDICATED; CULTURE IF INDICATED CULTURE INDICATED; GLUCOSE,URINE NEG (NEG); KETONE, URINE NEG (NEG); NITRITE,URINE NEG (NEG); PH, URINE 6.5 (5.0-8.5); SQUAMOUS EPITHELIAL CELL URINE <1 /hpf (0-5); URINE COLOR LIGHT-YELLOW (YELLW/STRAW)
[2016-11-25] MEDS ORDERED: NITROFURANTOIN MONOHYD MACROCR 100 MG CAP PO ONE (18:30)
[2016-11-25] MEDS ORDERED: SULFAMETHOXAZOLE-TRIMETHOPRIM DS 800-160 MG TAB PO ONE (19:15)
--- NOTE | 2016-11-25 19:31 | PD ---
Data Data Last Documented VS Vital Signs Date Time Temp Pulse Resp B/P (MAP) Pulse Ox O2 Delivery O2 Flow Rate FiO2 11/25/16 17:21 96 Nasal Cannula 2.00 11/25/16 16:42 97.4 82 24 109/55 (73) Orders Orders Complete Blood Count With Diff (11/25/16 16:58) Comprehensive Metabolic Panel (11/25/16 16:58) B-Type Natriuretic Peptide (11/25/16 16:58) Act Partial Throm Time (Ptt) (11/25/16 16:58) Prothrombin Time / Inr (Pt) (11/25/16 16:58) Magnesium (Mg) (11/25/16 16:58) Ckmb (Isoenzyme) Profile (11/25/16 16:58) Troponin I (11/25/16 16:58) Urinalysis - C+S If Indicated (11/25/16 16:58) Iv Access Insert/Monitor (11/25/16 16:58) Electrocardiogram (11/25/16 16:58) Ecg Monitoring (11/25/16 16:58) Oximetry (11/25/16 16:58) Oxygen Administration (11/25/16 16:58) Chest, Single Ap (11/25/16 16:58) Sodium Chloride 0.9% Flush (Ns Flush) (11/25/16 17:00) Furosemide Inj (Lasix Inj) (11/25/16 17:00) Methylprednisolone So Succ Inj (Solumedr (11/25/16 17:00) Albuterol-Ipratropium Neb (Duoneb Neb) (11/25/16 17:00) Morphine Inj (Morphine Inj) (11/25/16 17:00) Ondansetron Inj (Zofran Inj) (11/25/16 17:00) Lipase (11/25/16 17:00) Urine Culture (11/25/16 17:40) Nitrofurantoin Monohyd Macrocr (Macrobid (11/25/16 18:30) Sulfamet-Trimeth Ds 800-160 Mg (Bactrim (11/25/16 19:15) Activity Bed Rest With Brp (11/25/16 19:35) Vital Signs (Adult) Q4H (11/25/16 19:35) Cardiac Rhythm .As Directed (11/25/16 19:35) Notify Dr: Other .PRN (11/25/16 19:35) Notify DrShreya Parameters (11/25/16 19:35) Resp Oxygen Nasal Cannula (11/25/16 ) Ckmb (Isoenzyme) Profile (11/25/16 19:35) Ckmb (Isoenzyme) Profile (11/25/16 22:35) Troponin I (11/25/16 19:35) Troponin I (11/25/16 22:35) Electrocardiogram (11/25/16 19:35) Electrocardiogram (11/25/16 22:35) ^ Obtain (11/25/16 19:35) Sodium Chloride 0.9% Flush (Ns Flush) (11/25/16 19:45) Sodium Chloride 0.9% Flush (Ns Flush) (11/25/16 21:00) Morphine Inj (Morphine Inj) (11/25/16 19:45) Ondansetron Inj (Zofran Inj) (11/25/16 19:45) Famotidine (Pepcid) (11/25/16 21:00) Animal Laboratory Helper / Telemetry FEI.Q8H (11/25/16 19:35) Sulfamet-Trimeth Ds 800-160 Mg (Bactrim (11/25/16 21:00) Admit Order (Ed Use Only) (11/25/16 19:35) Labs Laboratory Tests Test 11/25/16 17:00 11/25/16 17:40 11/25/16 19:35 White Blood Count 12.8 TH/MM3 Red Blood Count 4.28 MIL/MM3 Hemoglobin 11.9 GM/DL Hematocrit 37.1 % Mean Corpuscular Volume 86.7 FL Mean Corpuscular Hemoglobin 27.9 PG Mean Corpuscular Hemoglobin Concent 32.1 % Red Cell Distribution Width 17.3 % Platelet Count 171 TH/MM3 Mean Platelet Volume 9.3 FL Neutrophils (%) (Auto) 76.3 % Lymphocytes (%) (Auto) 16.8 % Monocytes (%) (Auto) 6.1 % Eosinophils (%) (Auto) 0.4 % Basophils (%) (Auto) 0.4 % Neutrophils # (Auto) 9.8 TH/MM3 Lymphocytes # (Auto) 2.1 TH/MM3 Monocytes # (Auto) 0.8 TH/MM3 Eosinophils # (Auto) 0.1 TH/MM3 Basophils # (Auto) 0.1 TH/MM3 CBC Comment DIFF FINAL Differential Comment Prothrombin Time 12.4 SEC Prothromb Time International Ratio 1.1 RATIO Activated Partial Thromboplast Time 26.7 SEC Blood Urea Nitrogen 3 MG/DL Creatinine 1.10 MG/DL Random Glucose 108 MG/DL Total Protein 7.8 GM/DL Albumin 3.1 GM/DL Calcium Level 8.8 MG/DL Magnesium Level 2.2 MG/DL Alkaline Phosphatase 228 U/L Aspartate Amino Transf (AST/SGOT) 33 U/L Alanine Aminotransferase (ALT/SGPT) 27 U/L Total Bilirubin 0.9 MG/DL Sodium Level 132 MEQ/L Potassium Level 3.8 MEQ/L Chloride Level 96 MEQ/L Carbon Dioxide Level 25.7 MEQ/L Anion Gap 10 MEQ/L Estimat Glomerular Filtration Rate 70 ML/MIN Total Creatine Kinase 65 U/L Troponin I LESS THAN 0.02 NG/ML B-Type Natriuretic Peptide 46 PG/ML Lipase 105 U/L Urine Color LIGHT-YELLOW Urine Turbidity HAZY Urine pH 6.5 Urine Specific [place] 1.003 Urine Protein NEG mg/dL Urine Glucose (UA) NEG mg/dL Urine Ketones NEG mg/dL Urine Occult Blood SMALL Urine Nitrite NEG Urine Bilirubin NEG Urine Urobilinogen LESS THAN 2.0 MG/DL Urine Leukocyte Esterase LARGE Urine RBC 26 /hpf Urine WBC 148 /hpf Urine WBC Clumps FEW Urine Squamous Epithelial Cells <1 /hpf Urine Bacteria OCC /hpf Microscopic Urinalysis Comment CULTURE INDICATED MDM Supervised Visit with JERMAINE: Yes Narrative Course Patient seen and examined by me in addition to Vernon Reis PA-C. This is a 89- year-old male who called 911 today because he been having chest pain. Has a history of CABG. Patient states currently he feels well. Has evidence of urinary tract infection in the emergency department, will be treated, please see Mr. Reis's notes for our recommendations. At this time the patient would be stable for discharge other than his chest pain and needs evaluation in the chest pain center. Orders have been placed. Patient appears well at this time , well-healed midline surgical scar. His not had a stress test in 2 years. Admitting Information Admitting Physician Requests: Observation Condition: Stable Deven Escoto MD Nov 25, 2016 19:31
[2016-11-25] MEDS ORDERED: SODIUM CHLORIDE 0.9% FLUSH 10 ML FLUSH IV FLUSH PRN (19:45)
[2016-11-25] MEDS ORDERED: ONDANSETRON HCL 4 MG/2 ML VIAL IV PUSH PRN (19:45)
[2016-11-25] MEDS: SODIUM CHLORIDE 0.9% FLUSH 10 ML FLUSH IV FLUSH SCH (20:36)
[2016-11-25] MEDS: SULFAMETHOXAZOLE-TRIMETHOPRIM DS 800-160 MG TAB PO SCH (20:46)
[2016-11-25 20:52] VITALS: O2SAT 98
[2016-11-25 21:12] VITALS: BP 116/71; PULSE 83; RESP 16
[2016-11-25] MEDS: FAMOTIDINE 20 MG TAB PO SCH (21:15)
[2016-11-25 21:19] LABS: CREATINE KINASE 55 U/L (39-308)
[2016-11-25] MEDS: MORPHINE SULFATE 4 MG/ML INJ IV PUSH PRN (21:25)
[2016-11-25 22:04] VITALS: O2SAT 96
[2016-11-25 23:08] VITALS: BP 113/67; PULSE 85; RESP 19; TEMP 97.7; O2SAT 95
[2016-11-25 23:54] LABS: CREATINE KINASE 41 U/L (39-308)
[2016-11-26] VITALS (10 sets, daily range): BP systolic 102–126; BP diastolic 60–70; PULSE 61–96; RESP 16–18; TEMP 96–97.9; O2SAT 95–99
[2016-11-26] MEDS ORDERED: levETIRAcetam 500 MG TAB PO ONE (02:30)
[2016-11-26] MEDS ORDERED: GABAPENTIN 100 MG CAP PO ONE (02:30)
[2016-11-26] MEDS: MORPHINE SULFATE 4 MG/ML INJ IV PUSH PRN ×3 (02:51→14:29)
[2016-11-26] MEDS ORDERED: RESP: ALBUTEROL 2.5 MG/IPRATROPIUM 0.5 MG NEB (SCH) INH ONE (08:45)
[2016-11-26] MEDS ORDERED: GLUCAGON 1 MG/ML VIAL IM/SQ PRN (09:00)
[2016-11-26] MEDS ORDERED: GABAPENTIN 100 MG CAP PO SCH (09:00)
[2016-11-26] MEDS ORDERED: METOPROLOL SUCCINATE 50 MG EXTENDED RELEASE TAB PO SCH (09:00)
[2016-11-26] MEDS ORDERED: DEXTROSE 50% IN WATER 50 ML VIAL(D50) IV PRN (09:00)
[2016-11-26] MEDS ORDERED: ACETAMINOPHEN/HYDROcodone 325 MG/5 MG TAB PO PRN (09:00)
[2016-11-26] MEDS ORDERED: levETIRAcetam 500 MG TAB PO SCH (09:00)
[2016-11-26] MEDS: levETIRAcetam 500 MG TAB PO SCH ×2 (10:14→21:20)
[2016-11-26] MEDS: SULFAMETHOXAZOLE-TRIMETHOPRIM DS 800-160 MG TAB PO SCH ×2 (10:14→21:20)
[2016-11-26] MEDS: FAMOTIDINE 20 MG TAB PO SCH ×2 (10:14→21:20)
[2016-11-26] MEDS: GABAPENTIN 100 MG CAP PO SCH ×3 (10:14→18:26)
[2016-11-26] MEDS: SODIUM CHLORIDE 0.9% FLUSH 10 ML FLUSH IV FLUSH SCH ×2 (10:15→21:20)
[2016-11-26] MEDS ORDERED: PRAVASTATIN SOD 20 MG TAB PO SCH (11:00)
[2016-11-26] MEDS ORDERED: REGADENOSON INJ 0.4 MG/5 ML SYR ONE (11:48)
--- NOTE | 2016-11-26 11:48 | HHI.HP ---
HPI Primary Care Physician Non-Staff Chief Complaint Chest pain History of Present Illness This is a 56-year-old male with history of CAD with a CABG 18 years ago and history of cardiomyopathy having a defibrillator following Dr. Beaulieu that presents to ED with a clean of discomfort in his chest. He states while getting a shower yesterday he became dizzy and started seeing black dots. He finished the shower and after getting out of the shower developed a chest pressure in the center of his chest. Initially was a 2-3 out of 10 but continued to worsen. At that time and started to migrate to the left side of his back and neck. It is been intermittently reoccurring about 15 times since then. Each episode lasting about 5 minutes. Nothing in particular things to bring on the discomfort. No associated shortness breath nausea or diaphoresis. He does not believe these are similar symptoms when he needed his bypass. Patient is also complaining of difficulty with urination. States that as been going on for about a week. Also hurts to urinate. Denies any urethral discharge. Denies any recent unprotected sex. Denies hematuria. Patient continues to smoke cigarettes. Review of Systems General: Patient denies fevers, chills recent, and recent travel HEENT: Patient denies headache, sore throat, difficulty swallowing. Cardiovascular: Has the chest discomfort as mentioned above. Denies sensation of heart beating rapidly or irregularly. No syncope. He was diaphoretic. Respiratory: He was short of breath. Denies or inspirational chest discomfort. Denies coughing wheezing or hemoptysis. GI: He was nauseous. Patient denies vomiting, diarrhea, abdominal pain, bloody stools. Musculoskeletal: Patient denies joint pain or edema. Denies calf pain or edema. Neurovascular: He felt dizzy. Patient denies numbness, tingling, weakness in extremities. Denies headache. Endocrine: Denies polyuria and polydipsia. Hematologic: Denies easy bruising. Genitourinary: Complains of difficulty with urination including pain. Denies hematuria or urethral discharge. Denies scrotal pain. Skin: Denies rash or itching. Past Family Social History Allergies: Coded Allergies: cefazolin (Unverified Allergy, Severe, Hives, 10/28/16) nitroglycerin (Unverified Adverse Reaction, Intermediate, Nausea/Vomiting , 10/28/16) aspirin (Verified Adverse Reaction, Unknown, gi upset, 11/25/16) Past Medical History CAD with history of CABG 18 years ago. Cardiomyopathy and he has a defibrillator and is followed by Dr. Beaulieu. Hypertension, diabetes, COPD, seizure disorder, hyperlipidemia, and tobacco abuse. Denies Past Surgical History History of CABG 18 years ago. Reported Medications Reported Meds & Active Scripts Active Ventolin Hfa 18 GM Inh (Albuterol Sulfate) 90 Mcg/Act Aer 2 Puff INH Q4H PRN Blood Glucose System Donny (Blood Glucose Monitoring Suppl) 1 Kit Kit Kit Glipizide 5 Mg Tab 5 Mg PO DAILY Take 30 minutes before a meal Reported Metoprolol Succinate ER 24 HR (Metoprolol Succinate) 50 Mg Tab 50 Mg PO DAILY Gabapentin 100 Mg Cap 100 Mg PO TID Levetiracetam 1,000 Mg Tab 1,000 Mg PO BID Simvastatin 10 Mg Tab 10 Mg PO DAILY Xarelto (Rivaroxaban) 20 Mg Tab 20 Mg PO DAILY Active Ordered Medications Current Medications Medications (Trade) Dose Ordered Sig/Viky Route Start Time Stop Time Status Last Admin (NS Flush) 2 ml UNSCH PRN IVF 11/25/16 17:00 (NS Flush) 2 ml UNSCH PRN IV FLUSH 11/25/16 19:45 (NS Flush) 2 ml BID IV FLUSH 11/25/16 21:00 11/26/16 10:15 (Morphine Inj) 2 mg Q4H PRN IV PUSH 11/25/16 19:45 11/26/16 10:14 (Zofran Inj) 4 mg Q6H PRN IV PUSH 11/25/16 19:45 (Pepcid) 20 mg BID PO 11/25/16 21:00 11/26/16 10:14 (Bactrim Ds 800-160 Mg) 1 tab Q12HR PO 11/25/16 21:00 12/05/16 21:00 11/26/16 10:14 (Toprol Xl) 50 mg DAILY PO 11/26/16 09:00 (Pravachol) 20 mg DAILY PO 11/26/16 11:00 (Neurontin) 100 mg TID PO 11/26/16 09:00 11/26/16 10:14 (Keppra) 1,000 mg BID PO 11/26/16 09:00 11/26/16 10:14 (Duoneb Neb) 1 ampule Q4HR NEB PRN INH 11/26/16 08:45 (Levasy 5-325 Mg) 1 tab Q4H PRN PO 11/26/16 09:00 (NovoLOG SUPPLEMENTAL SCALE) 1 ACHS SLIDING SCALE SQ 11/26/16 12:00 (D50w (Vial) Inj) 25 ml UNSCH PRN IV 11/26/16 09:00 (Glucagon Inj) 1 mg UNSCH PRN IM/SQ 11/26/16 09:00 Family History There is family history of CAD. Social History Patient continues to smoke cigarettes. Smokes one pack of cigarettes daily for 40 years. He drinks an average 6-8 beers twice a week. Denies illicit drugs. Physical Exam Vital Signs Vital Signs Date Time Temp Pulse Resp B/P (MAP) Pulse Ox O2 Delivery O2 Flow Rate FiO2 11/26/16 10:36 97.8 81 16 113/66 (82) 99 11/26/16 07:29 97.5 61 18 105/66 (79) 97 11/26/16 04:01 73 11/26/16 03:58 97.9 86 18 116/70 (85) 95 11/26/16 03:00 18 11/26/16 00:20 79 11/25/16 23:08 97.7 85 19 113/67 (82) 95 11/25/16 22:05 11/25/16 22:04 96 Nasal Cannula 2.00 11/25/16 21:12 83 16 116/71 (86) Room Air 11/25/16 20:52 98 Room Air 11/25/16 20:52 98 11/25/16 17:21 96 Nasal Cannula 2.00 11/25/16 16:42 97.4 82 24 109/55 (73) 100 Physical Exam GENERAL: This is a well-nourished, well-developed patient, in no apparent distress. Patient speaks in clear complete sentences. Patient is pleasant. HEENT: Head is atraumatic and normocephalic. Neck is supple without lymphadenopathy and trachea is midline. No JVD or carotid bruits. CARDIOVASCULAR: Regular rate and rhythm without murmurs, gallops, or rubs. RESPIRATORY: Clear to auscultation. Breath sounds equal bilaterally. No wheezes , rales, or rhonchi. Chest wall is nontender. No use of accessory muscles. GASTROINTESTINAL: Abdomen is nontender, nondistended. Abdomen soft. No obvious pulsatile mass or bruit. No CVA tenderness. Strong femoral pulses bilaterally. Normal bowel sounds in all quadrants. MUSCULOSKELETAL: Patient is moving upper and lower extremities freely. No calf tenderness or edema, no Homans sign. Strong pulses in upper and lower extremities. NEUROLOGICAL: Patient is alert and oriented. Cranial nerves 2-12 are grossly intact. No focal deficits and speech is clear. SKIN: No rash and turgor is normal. Laboratory Laboratory Tests Test 11/25/16 17:00 11/25/16 17:40 11/25/16 19:35 11/25/16 22:45 White Blood Count 12.8 Red Blood Count 4.28 Hemoglobin 11.9 Hematocrit 37.1 Mean Corpuscular Volume 86.7 Mean Corpuscular Hemoglobin 27.9 Mean Corpuscular Hemoglobin Concent 32.1 Red Cell Distribution Width 17.3 Platelet Count 171 Mean Platelet Volume 9.3 Neutrophils (%) (Auto) 76.3 Lymphocytes (%) (Auto) 16.8 Monocytes (%) (Auto) 6.1 Eosinophils (%) (Auto) 0.4 Basophils (%) (Auto) 0.4 Neutrophils # (Auto) 9.8 Lymphocytes # (Auto) 2.1 Monocytes # (Auto) 0.8 Eosinophils # (Auto) 0.1 Basophils # (Auto) 0.1 CBC Comment DIFF FINAL Differential Comment Prothrombin Time 12.4 Prothromb Time International Ratio 1.1 Activated Partial Thromboplast Time 26.7 Blood Urea Nitrogen 3 Creatinine 1.10 Random Glucose 108 Total Protein 7.8 Albumin 3.1 Calcium Level 8.8 Magnesium Level 2.2 Alkaline Phosphatase 228 Aspartate Amino Transf (AST/SGOT) 33 Alanine Aminotransferase (ALT/SGPT) 27 Total Bilirubin 0.9 Sodium Level 132 Potassium Level 3.8 Chloride Level 96 Carbon Dioxide Level 25.7 Anion Gap 10 Estimat Glomerular Filtration Rate 70 Total Creatine Kinase 65 55 41 Troponin I LESS THAN 0.02 LESS THAN 0.02 LESS THAN 0.02 B-Type Natriuretic Peptide 46 Lipase 105 Urine Color LIGHT-YELLOW Urine Turbidity HAZY Urine pH 6.5 Urine Specific [place] 1.003 Urine Protein NEG Urine Glucose (UA) NEG Urine Ketones NEG Urine Occult Blood SMALL Urine Nitrite NEG Urine Bilirubin NEG Urine Urobilinogen LESS THAN 2.0 Urine Leukocyte Esterase LARGE Urine RBC 26 Urine WBC 148 Urine WBC Clumps FEW Urine Squamous Epithelial Cells <1 Urine Bacteria OCC Microscopic Urinalysis Comment CULTURE INDICATED Date/Time Source Procedure Growth Status 11/25/16 17:40 Urine Clean Catch Urine Culture Pending Received Result Diagram: 11/25/16 1700 11/25/16 1700 Imaging Last 48 hours Impressions Chest X-Ray 11/25/16 1658 Signed Impressions: Service Date/Time: Friday, November 25, 2016 17:21 - CONCLUSION: Complete cardiomegaly with pacer otherwise negative. Louis Rae MD FACR Course EKGs been sinus rhythm with nonspecific ST changes. Occasional PVCs. Caprini VTE Risk Assessment Caprini VTE Risk Assessment: No/Low Risk (score <= 1) Caprini Risk Assessment Model Point Value = 1 Point Value = 2 Point Value = 3 Point Value = 5 Age 41-60 Minor surgery BMI > 25 kg/m2 Swollen legs Varicose veins or History of unexplained or recurrent spontaneous Oral contraceptives or hormone replacement Sepsis (< 1 month) Serious lung disease, including pneumonia (< 1 month) Abnormal pulmonary function Acute myocardial infarction Congestive heart failure (< 1 month) History of inflammatory bowel disease Medical patient at bed rest Age 61-74 Arthroscopic surgery Major open surgery (> 45 min) Laparoscopic surgery (> 45 min) Malignancy Confined to bed (> 72 hours) Immobilizing plaster cast Central venous access Age >= 75 History of VTE Family history of VTE Factor V Leiden Prothrombin [id number] Lupus anticoagulant Anticardiolipin antibodies Elevated serum homocysteine Heparin-induced thrombocytopenia Other congenital or acquired thrombophilia Stroke (< 1 month) Elective arthroplasty Hip, pelvis, or leg fracture Acute spinal cord injury (< 1 month) Prophylaxis Regimen Total Risk Factor Score Risk Level Prophylaxis Regimen 0-1 Low Early ambulation 2 Moderate Order ONE of the following: *Sequential Compression Device (SCD) *Heparin 5000 units SQ BID 3-4 Higher Order ONE of the following medications: *Heparin 5000 units SQ TID *Enoxaparin/Lovenox 40 mg SQ daily (WT < 150 kg, CrCl > 30 mL/min) *Enoxaparin/Lovenox 30 mg SQ daily (WT < 150 kg, CrCl > 10-29 mL/min) *Enoxaparin/Lovenox 30 mg SQ BID (WT < 150 kg, CrCl > 30 mL/min) AND/OR *Sequential Compression Device (SCD) 5 or more Highest Order ONE of the following medications: *Heparin 5000 units SQ TID (Preferred with Epidurals) *Enoxaparin/Lovenox 40 mg SQ daily (WT < 150 kg, CrCl > 30 mL/min) *Enoxaparin/Lovenox 30 mg SQ daily (WT < 150 kg, CrCl > 10-29 mL/min) *Enoxaparin/Lovenox 30 mg SQ BID (WT < 150 kg, CrCl > 30 mL/min) AND *Sequential Compression Device (SCD) Assessment and Plan Assessment and Plan * Chest pain: Patient has had serial cardiac enzymes and EKGs for ruling out purposes. He will be seen by Dr. Montiel of cardiology and undergo a Lexiscan. He'll be discharge of nonischemic with instructions to follow-up with his claim examiner and primary care physician. * CAD: This will be reassessed for stress testing. He will continue his medication and follow-up with his claim examiner. * Cardiomyopathy: Patient has a the fibular. He'll need to continue his medications and follow-up with his claim examiner. * Hypertension: Continue current medication. * COPD: Had DuoNeb's when necessary. Resume medication at discharge. * Seizure disorder: Continue current medication. * Tobacco abuse: Patient has been counseled on importance of smoking cessation. Patient is stable at this time. He is agreeable to this plan. Alejandro Perez Nov 26, 2016 11:48
[2016-11-26] MEDS: INSULIN ASPART SUPPLEMENTAL SCALE SQ SCH ×3 (12:00→21:28)
--- NOTE | 2016-11-26 13:47 | RADRPT ---
EXAM DATE/TIME: 11/26/2016 10:57 [facility] COMPARISON: MYOCARDIAL PERF PHARM SPECT, GATED W/EF, July 01, 2015, 15:07. INDICATIONS : Left chest pain radiating to the back for one day. Angina. Coronary artery disease. DOSE: 35.0 mCi Tc99m Myoview at stress. 11.0 mCi Tc99m Myoview at rest. 0.4 mg Lexiscan STRESS SYMPTOMS: None. EJECTION FRACTION: 40% MEDICAL HISTORY : Chronic obstructive pulmonary disease. SURGICAL HISTORY : Pacemaker. CABG Abdominal aortic aneurysm repair. ENCOUNTER: Initial ACUITY: 1 day PAIN SCALE: 5/10 LOCATION: Left chest TECHNIQUE: The patient underwent pharmacologic stress with infusion of prescribed dose. Continuous ECG tracing was monitored during stress. Gated SPECT imaging was performed after stress and conventional SPECT i maging was performed at rest. The examination was performed on a SPECT/CT scanner, both attenuation and non-corrected datasets were reviewed. FINDINGS: DISTRIBUTION: The maximum perfused segment at stress is in the anterior wall. PERFUSION STUDY: The examination demonstrates large in size, fixed perfusion defect involving the cardiac apex. There is dilation of the ventricular cavity. GATED STUDY: The gated study demonstrates a moderate global hypokinesis with an ejection fraction of 40%. CONCLUSION: 1. Large, fixed, severe perfusion defect as above. No reversible perfusion defect identified. Diminis hed ejection fraction estimated at 40%. RISK CATEGORY: Intermediate (1-3% Annual Mortality Rate) Dennis Rae MD on November 26, 2016 at 13:41 Board Certified Radiologist. This report was verified electronically.
[2016-11-26] MEDS ORDERED: BACT800T5 PO (15:09)
--- NOTE | 2016-11-26 15:12 | HHI.DCPOC ---
Discharge Care Plan Diagnosis: (1) Tobacco abuse (2) Hypertension (3) Hyperlipidemia (4) Hx of CABG (5) Chest pain (6) Coronary artery disease (7) Cardiomyopathy (8) UTI (urinary tract infection) Goals to Promote Your Health * To prevent worsening of your condition and complications * To maintain your health at the optimal level Directions to Meet Your Goals Take your medications as prescribed Follow your dietary instruction Follow activity as directed Keep your appointments as scheduled Take your immunizations and boosters as scheduled If your symptoms worsen call your PCP, if no PCP go to Urgent Care Center or Emergency Room Smoking is Dangerous to Your Health. Avoid second hand smoke Call the 24-hour hour crisis hotline for domestic abuse at Alejandro Perez Nov 26, 2016 15:12
--- NOTE | 2016-11-26 16:00 | TR ---
Date Performed: 11/26/2016 Time Performed: 11:53:40 DOCTOR: Stephen Montiel DRUG LIST: CLINICAL HISTORY: REASON FOR TEST: REASON FOR ENDING: OBSERVATION: CONCLUSION: Lexiscan stress test was performed under standard four minute protocol. Radionuclid e was injected one minute prior to ending the test. No electrocardiographic abormalities were present to suggest ischemia. Nuclear imaging and interpretation are pending. COMMENTS:
--- NOTE | 2016-11-26 16:14 | EKG ---
Date Performed: 11/25/2016 Time Performed: 23:03:25 PTAGE: 56 years EKG: Sinus rhythm MODERATE INTRAVENTRICULAR CONDUCTION DELAY ST DEVIATION AND MODERATE T-WAVE ABNORMALITY, CONSIDER AN TEROLATERAL ISCHEMIA ST DEVIATION AND MODERATE T-WAVE ABNORMALITY, CONSIDER INFERIOR ISCHEMIA ABNORMA L ECG PREVIOUS TRACING : 11/25/2016 20.18 Compared to previous tracing,ST wave changes more prominant . , DOCTOR: Stephen Montiel Interpretating Date/Time 11/26/2016 16:14:19
--- NOTE | 2016-11-26 16:15 | EKG ---
Date Performed: 11/25/2016 Time Performed: 20:18:09 PTAGE: 56 years EKG: Sinus rhythm WITH OCCASIONAL VENTRICULAR PREMATURE COMPLEXES POSSIBLE RIGHT ATRIAL ENLARGEMENT NONSPECIFIC ST & T -WAVE ABNORMALITY BORDERLINE ECG PREVIOUS TRACING : 11/25/2016 16.56 Since previous tracing, no significant change noted DOCTOR: Stephen Montiel Interpretating Date/Time 11/26/2016 16:15:19
--- NOTE | 2016-11-26 16:18 | EKG ---
Date Performed: 11/25/2016 Time Performed: 16:56:45 PTAGE: 56 years EKG: Sinus rhythm POSSIBLE RIGHT ATRIAL ENLARGEMENT POSSIBLE LEFT ATRIAL ENLARGEMENT NONSPECIFIC T-WAVE ABNORMALITY LESLEY RDERLINE ECG PREVIOUS TRACING : 11/13/2016 09.46 Compared to previous tracing,ST waves improved DOCTOR: Stephen Montiel Interpretating Date/Time 11/26/2016 16:17:18
[2016-11-26] MEDS: RESP: ALBUTEROL 2.5 MG/IPRATROPIUM 0.5 MG NEB (PRN) INH ×2 (16:41→20:16)
== END 2016-11-26 22:10 | disposition home or self-care (01) ==
LOC: NEPB 16:14 → NEDA 19:42 → NEPFCDU 22:48
PROVIDERS: ADMIT Internal Medicine Cardiovascular Disease; ATTEND Internal Medicine Cardiovascular Disease
DX: R07.89 Other chest pain (principal); J44.9 Chronic obstructive pulmonary disease, unspecified; I25.10 Atherosclerotic heart disease of native coronary artery without angina pectoris; I48.91 Unspecified atrial fibrillation; I11.0 Hypertensive heart disease with heart failure; I42.9 Cardiomyopathy, unspecified; N39.0 Urinary tract infection, site not specified; B96.5 Pseudomonas (aeruginosa) (mallei) (pseudomallei) as the cause of diseases classified elsewhere; G40.909 Epilepsy, unspecified, not intractable, without status epilepticus; F17.210 Nicotine dependence, cigarettes, uncomplicated
CPT/HCPCS: 71010; 78452; 80053; 81001; 82550; 82948; 83690; 83735; 83880; 84484; 85025; 85610; 85730; 87077; 87086; 87186; 93005; 93017; 94640; 94664; 96372; 96374; 96375; 96376; 99285; A9502; G0378; J1815; J1940; J2270; J2405; J2785; J2930

== ENCOUNTER 2017-03-17 19:20 | Inpatient (IN) | payer MEDICARE, MEDICAID ==
[~2017-03-17] VITALS: Ht 182.9 cm; Wt 91.4 kg
[~2017-03-17 19:20] MED LIST changes: +BACT800T5 PO; -BENZ100 PO; -LEVA750T9 PO; +METO1TAB9 PO; -METO50TA11 PO; -PRED10PA PO
[2017-03-17 19:33] VITALS: BP 102/57; PULSE 71; RESP 18; TEMP 98.4; O2SAT 100
[2017-03-17 19:50] VITALS: RESP 17; O2SAT 100
[2017-03-17] MEDS ORDERED: MORPHINE SULFATE 2 MG/ML INJ IV PUSH ONE (20:00)
[2017-03-17] MEDS ORDERED: ONDANSETRON HCL 4 MG/2 ML VIAL IV PUSH ONE (20:00)
[2017-03-17] MEDS ORDERED: PANTOPRAZOLE SODIUM 40 MG VIAL IV PUSH ONE (20:00)
--- NOTE | 2017-03-17 20:05 | PD ---
HPI Chief Complaint: Chest Pain Time Seen by Provider: 19:21 Travel History International Travel<30 days: No Contact w/Intl Traveler<30days: No Traveled to known affect area: No History of Present Illness HPI Patient is a 57-year-old male complaining of one day of left arm pain that radiates to his substernal area and to his left upper back. He has a history of having a CABG triple-vessel disease surgery at 36 years of age he denies being obese to her diabetic at the time he denies being a cocaine abuser at the time he denies family history of young cardiac issues is unclear why he had a triple-vessel CABG at 36 years old. Now he said he is having pain and is old allergic to aspirin and nitroglycerin. He is on Zarontin so metoprolol the medical for seizure prophylaxis in the ER he is not diaphoretic he is not nausea is not vomiting he does not appear to be in distress his EKG is normal sinus rhythm at a rate of 70 with flipped T waves in II,III aVL and V5 V6 which I see were in his old EKG. My initial exam I'm able to reproduce his chest pain and upper back pain by rubbing his external costochronditis areas. PFSH Past Medical History Hx Anticoagulant Therapy: Yes (Xarelto) Arthritis: No Asthma: No Atrial Fibrillation: Yes Autoimmune Disease: No Blood Disorders: No Anxiety: No Depression: No Heart Rhythm Problems: Yes (Afib) Cancer: No Cardiac Catheterization: Yes (5-10 times) Cardiovascular Problems: Yes (CABGx3, HTN, CAD, AICD) High Cholesterol: Yes Chemotherapy: No Chest Pain: Yes Congestive Heart Failure: Yes (11/14/16) COPD: Yes Cerebrovascular Accident: No Diabetes: Yes Patient Takes Glucophage: Yes (Glipizide) Diminished Hearing: No Endocrine: No Gastrointestinal Disorders: Yes GERD: No Glaucoma: No Genitourinary: No Headaches: Yes Hepatitis: No Hiatal Hernia: No Hypertension: Yes Immune Disorder: No Implanted Vascular Access Dvce: Yes Kidney Stones: No Musculoskeletal: No Neurologic: Yes (neuropathy) Psychiatric: No Reproductive: No Respiratory: Yes (COPD) Migraines: No Myocardial Infarction: Yes Radiation Therapy: No Renal Failure: No Seizures: Yes (EPILEPSY 2001) Sickle Cell Disease: No Sleep Apnea: No Thyroid Disease: No Ulcer: No Tetanus Vaccination: > 5 Years Influenza Vaccination: No PNEUMOCCOCAL Vaccine (Year): 2 Past Surgical History Abdominal Aneurysm Repair: Yes (1995) Abdominal Surgery: No AICD: Yes (01/20 [facility] [id number], [id number], removed) Appendectomy: No Arteriovenous Shunt: No Body Medical Devices: PACER Cardiac Surgery: Yes (CABG X 3 VESSEL IN , pacemaker removed 8-9 months ago) Cholecystectomy: No Coronary Artery Bypass Graft: Yes (1998 x) Coronary Stent: Yes Ear Surgery: No Endocrine Surgery: No Eye Surgery: No Genitourinary Surgery: No Gynecologic Surgery: No Insulin Pump: No Joint Replacement: No Oral Surgery: No Pacemaker: Yes (AICD VIA DR GREGORIO) Thoracic Surgery: No Other Surgery: Yes (DEFIB PACER IMPLANT, CABG) Social History Alcohol Use: Yes (12-pack daily) Tobacco Use: Yes (1 PPD) Substance Use: No Allergies-Medications (Allergen,Severity, Reaction): Coded Allergies: cefazolin (Unverified Allergy, Severe, Hives, 10/28/16) nitroglycerin (Unverified Adverse Reaction, Intermediate, Nausea/Vomiting , 10/28/16) aspirin (Verified Adverse Reaction, Unknown, gi upset, 11/25/16) Reported Meds & Prescriptions Reported Meds & Active Scripts Active Ventolin Hfa 18 GM Inh (Albuterol Sulfate) 90 Mcg/Act Aer 2 Puff INH Q4H PRN Blood Glucose System Donny (Blood Glucose Monitoring Suppl) 1 Kit Kit Kit Glipizide 5 Mg Tab 5 Mg PO DAILY Take 30 minutes before a meal Reported Metoprolol Succinate ER 24 HR (Metoprolol Succinate) 50 Mg Tab 50 Mg PO DAILY Gabapentin 100 Mg Cap 100 Mg PO TID Levetiracetam 1,000 Mg Tab 1,000 Mg PO BID Simvastatin 10 Mg Tab 10 Mg PO DAILY Xarelto (Rivaroxaban) 20 Mg Tab 20 Mg PO DAILY Review of Systems Except as stated in HPI: all other systems reviewed are Neg General / Constitutional: No: Fever, Chills HENT: No: Headaches Cardiovascular: Positive: Chest Pain or Discomfort Gastrointestinal: No: Diarrhea Musculoskeletal: Positive: Other (upper left back pain reproducible) Neurologic: No: Weakness Physical Exam Narrative GENERAL: Nontoxic-appearing awake alert nondiaphoretic in no distress SKIN: Warm and dry. HEAD: Atraumatic. Normocephalic. EYES: Pupils equal and round. No scleral icterus. No injection or drainage. ENT: No nasal bleeding or discharge. Mucous membranes pink and moist. NECK: Trachea midline. No JVD. CARDIOVASCULAR: Regular rate and rhythm. I am able to reproduce his chest pain by pushing on his left anterior ribs as well as his left upper scapula feel area pain is reproducible RESPIRATORY: No accessory muscle use. Clear to auscultation. Breath sounds equal bilaterally. Lungs are clear to auscultation GASTROINTESTINAL: Abdomen soft, non-tender, nondistended. Hepatic and splenic margins not palpable. MUSCULOSKELETAL: Extremities without clubbing, cyanosis, or edema. No obvious deformities. NEUROLOGICAL: Awake and alert. No obvious cranial nerve deficits. Motor grossly within normal limits. Five out of 5 muscle strength in the arms and legs. Normal speech. PSYCHIATRIC: Appropriate mood and affect; insight and judgment normal. Data Data Last Documented VS Vital Signs Date Time Temp Pulse Resp B/P (MAP) Pulse Ox O2 Delivery O2 Flow Rate FiO2 03/17/17 20:40 16 03/17/17 19:50 100 Room Air 03/17/17 19:33 98.4 71 102/57 (72) Orders Orders Electrocardiogram (03/17/17 19:37) Complete Blood Count With Diff (03/17/17 19:37) Basic Metabolic Panel (Bmp) (03/17/17 19:37) Ckmb (Isoenzyme) Profile (03/17/17 19:37) Troponin I (03/17/17 19:37) Chest, Single Ap (03/17/17 19:37) Iv Access Insert/Monitor (03/17/17 19:37) Ecg Monitoring (03/17/17 19:37) Oxygen Administration (03/17/17 19:37) Oximetry (03/17/17 19:37) Prothrombin Time / Inr (Pt) (03/17/17 19:48) Pantoprazole Inj (Protonix Inj) (03/17/17 20:00) Ondansetron Inj (Zofran Inj) (03/17/17 20:00) Morphine Inj (Morphine Inj) (03/17/17 20:00) Admit Order (Ed Use Only) (03/17/17 21:31) Ketorolac Inj (Toradol Inj) (03/17/17 21:45) Labs Laboratory Tests Test 03/17/17 19:40 White Blood Count 5.7 TH/MM3 Red Blood Count 3.69 MIL/MM3 Hemoglobin 9.2 GM/DL Hematocrit 29.8 % Mean Corpuscular Volume 80.8 FL Mean Corpuscular Hemoglobin 25.0 PG Mean Corpuscular Hemoglobin Concent 30.9 % Red Cell Distribution Width 17.5 % Platelet Count 85 TH/MM3 Mean Platelet Volume 9.7 FL Neutrophils (%) (Auto) 42.9 % Lymphocytes (%) (Auto) 40.2 % Monocytes (%) (Auto) 13.8 % Eosinophils (%) (Auto) 2.3 % Basophils (%) (Auto) 0.8 % Neutrophils # (Auto) 2.5 TH/MM3 Lymphocytes # (Auto) 2.3 TH/MM3 Monocytes # (Auto) 0.8 TH/MM3 Eosinophils # (Auto) 0.1 TH/MM3 Basophils # (Auto) 0.0 TH/MM3 CBC Comment AUTO DIFF Differential Comment AUTO DIFF CONFIRMED Platelet Estimate LOW Platelet Morphology Comment ENLARGED Ovalocytes 1+ Prothrombin Time 10.9 SEC Prothromb Time International Ratio 1.1 RATIO Blood Urea Nitrogen 5 MG/DL Creatinine 0.94 MG/DL Random Glucose 213 MG/DL Calcium Level 8.6 MG/DL Sodium Level 134 MEQ/L Potassium Level 3.7 MEQ/L Chloride Level 98 MEQ/L Carbon Dioxide Level 26.1 MEQ/L Anion Gap 10 MEQ/L Estimat Glomerular Filtration Rate 83 ML/MIN Total Creatine Kinase 90 U/L Troponin I LESS THAN 0.02 NG/ML MDM Medical Decision Making Medical Screen Exam Complete: Yes Emergency Medical Condition: Yes Differential Diagnosis chest pain of GERD vs costochondritis vs PE vs PA unstable angina other Narrative Course EKG unchanged from prior ekg and Trop negative will admit to chest pain due to significant CAD history even though ischemic event lower on my differential for this episode Diagnosis Primary Impression: Chest pain Hakan Casanova MD Mar 17, 2017 20:05
--- NOTE | 2017-03-17 20:34 | RADRPT ---
EXAM DATE/TIME: 03/17/2017 19:48 [facility] COMPARISON: CHEST SINGLE AP, November 25, 2016, 17:21. INDICATIONS : Short of breath, chest pain. MEDICAL HISTORY : Chronic obstructive pulmonary disease. SURGICAL HISTORY : CABG. Pacemaker. ENCOUNTER: Initial ACUITY: 1 day PAIN SCORE: 2/10 LOCATION: Bilateral chest FINDINGS: Lungs are clear. Slight cardiomegaly is seen. There is evidence for prior median sternotomy. Right orozco bclavian pacer has not changed. CONCLUSION: No acute cardiopulmonary disease. Iban Mcgee MD on March 17, 2017 at 20:30 Board Certified Radiologist. This report was verified electronically.
[2017-03-17 20:35] LABS: AUTOMATED NEUTROPHIL # 2.5 TH/MM3 (1.8-7.7); BASOPHIL % 0.8 % (0.0-2.0); EOSINOPHIL # 0.1 TH/MM3 (0-0.4); EOSINOPHIL % 2.3 % (0.0-4.0); HEMATOCRIT 29.8 % (39.0-51.0); HEMOGLOBIN 9.2 GM/DL (13.0-17.0); LYMPH % 40.2 % (9.0-44.0); LYMPHOCYTE # 2.3 TH/MM3 (1.0-4.8); MEAN CELL VOLUME 80.8 FL (80.0-100.0); MEAN CORPUSCULAR HGB CONC 30.9 % (32.0-36.0); MEAN PLATELET VOLUME 9.7 FL (7.0-11.0); MONO % 13.8 % (0.0-8.0); MONOCYTE # 0.8 TH/MM3 (0-0.9); NEUT % 42.9 % (16.0-70.0); PLATELET COUNT 85 TH/MM3 (150-450); RED BLOOD COUNT 3.69 MIL/MM3 (4.50-5.90); RED CELL DISTRIBUTION WIDTH 17.5 % (11.6-17.2); WHITE BLOOD COUNT 5.7 TH/MM3 (4.0-11.0)
[2017-03-17 21:19] LABS: BICARBONATE 26.1 MEQ/L (21.0-32.0); BLOOD UREA NITROGEN 5 MG/DL (7-18); CALCIUM 8.6 MG/DL (8.5-10.1); CHLORIDE 98 MEQ/L (98-107); CREATININE 0.94 MG/DL (0.60-1.30); GLOMERULAR FILTRATION RATE 83 ML/MIN (>89); GLUCOSE,RANDOM 213 MG/DL (74-106); SODIUM (NA) 134 MEQ/L (136-145)
[2017-03-17 21:23] LABS: TROPONIN I LESS THAN 0.02 NG/ML (0.02-0.05)
[2017-03-17] MEDS ORDERED: IOHEXOL 350 MG/ML 50 ML BTL (for Cath Lab) OTHER ONE (21:35)
[2017-03-17] MEDS ORDERED: IOHEXOL 350 MG/ML 100 ML BTL (for Cath Lab) OTHER ONE (21:35)
[2017-03-17 21:44] VITALS: BP 112/61; PULSE 67; RESP 14; O2SAT 100
[2017-03-17] MEDS ORDERED: KETOROLAC TROMETHAMINE 30 MG/ML (IVP) VIAL IV PUSH ONE (21:45)
[2017-03-17 21:47] LABS: INTERNATIONAL NORMALIZED RATIO 1.1 RATIO; PROTHROMBIN TIME - PATIENT 10.9 SEC (9.8-11.6)
[2017-03-17 22:00] LABS: OVALOCYTES 1+ (NORMAL)
[2017-03-17] MEDS ORDERED: SODIUM CHLORIDE 0.9% FLUSH 10 ML FLUSH IV FLUSH PRN (22:15)
[2017-03-17 23:26] VITALS: BP 100/57; PULSE 77; RESP 18; TEMP 97.9; O2SAT 99
[2017-03-17] MEDS ORDERED: diphenhydrAMINE HCL ELIXIR 12.5 MG/5 ML CUP PO ONE (23:45)
[2017-03-18] VITALS (11 sets, daily range): BP systolic 94–112; BP diastolic 54–70; PULSE 70–90; RESP 18–24; TEMP 97.3–98.4; O2SAT 96–100
[2017-03-18 00:29] LABS: TROPONIN I LESS THAN 0.02 NG/ML (0.02-0.05)
[2017-03-18] MEDS ORDERED: MORPHINE SULFATE 2 MG/ML INJ IV PUSH ONE (01:00)
[2017-03-18 05:36] LABS: TROPONIN I LESS THAN 0.02 NG/ML (0.02-0.05)
[2017-03-18] MEDS: SODIUM CHLORIDE 0.9% FLUSH 10 ML FLUSH IV FLUSH SCH ×2 (07:54→21:00)
[2017-03-18] MEDS ORDERED: RESP: ALBUTEROL 2.5 MG/IPRATROPIUM 0.5 MG NEB (SCH) INH ONE (08:15)
[2017-03-18] MEDS ORDERED: RESP: ALBUTEROL 2.5 MG/IPRATROPIUM 0.5 MG NEB (PRN) INH (08:15)
[2017-03-18] MEDS ORDERED: GLUCAGON 1 MG/ML VIAL OTHER PRN (08:30)
[2017-03-18] MEDS ORDERED: DEXTROSE 50% IN WATER 50 ML VIAL(D50) IV PUSH PRN (08:30)
[2017-03-18] MEDS: PANTOPRAZOLE SOD 40 MG DELAYED RELEASE TAB PO SCH (08:39)
[2017-03-18] MEDS: MORPHINE SULFATE 2 MG/ML INJ IV PUSH PRN ×3 (08:45→21:36)
[2017-03-18] MEDS: METOPROLOL SUCCINATE 50 MG EXTENDED RELEASE TAB PO SCH (08:46)
[2017-03-18] MEDS: levETIRAcetam 500 MG TAB PO SCH ×2 (08:46→21:36)
[2017-03-18] MEDS: PRAVASTATIN SOD 20 MG TAB PO SCH (08:47)
[2017-03-18] MEDS: GABAPENTIN 100 MG CAP PO SCH ×3 (08:47→17:56)
[2017-03-18 08:48] LABS: AUTOMATED NEUTROPHIL # 3.1 TH/MM3 (1.8-7.7); BASOPHIL % 0.7 % (0.0-2.0); EOSINOPHIL # 0.1 TH/MM3 (0-0.4); EOSINOPHIL % 2.4 % (0.0-4.0); HEMATOCRIT 28.2 % (39.0-51.0); HEMOGLOBIN 8.9 GM/DL (13.0-17.0); LYMPH % 24.7 % (9.0-44.0); LYMPHOCYTE # 1.3 TH/MM3 (1.0-4.8); MEAN CELL VOLUME 80.2 FL (80.0-100.0); MEAN CORPUSCULAR HEMOGLOBIN 25.3 PG (27.0-34.0); MEAN CORPUSCULAR HGB CONC 31.6 % (32.0-36.0); MEAN PLATELET VOLUME 9.1 FL (7.0-11.0); MONOCYTE # 0.6 TH/MM3 (0-0.9); NEUT % 60.2 % (16.0-70.0); PLATELET COUNT 79 TH/MM3 (150-450); RED BLOOD COUNT 3.52 MIL/MM3 (4.50-5.90); RED CELL DISTRIBUTION WIDTH 17.9 % (11.6-17.2); WHITE BLOOD COUNT 5.1 TH/MM3 (4.0-11.0)
[2017-03-18] MEDS ORDERED: SODIUM CHLOR 0.9% 1000 ML INJ 1,000 ML IV SCH (09:00)
[2017-03-18 09:33] LABS: OVALOCYTES 1+ (NORMAL)
--- NOTE | 2017-03-18 09:47 | ECHRPT ---
Indication: CARDIOMYOPATHY CONCLUSIONS Moderately dilated left ventricle. Wall thickness is normal. The left ventricular systolic function is moderately reduced with an estimated ejection fraction 35% .. Akinesis and scarring of the distal anteroseptal and apical myocardium.The left atrial size is moder ately dilated. There is a pacemaker wire present in the right atrial cavity. Eojsxidj-[id number]-csvark mitral valve regurgitation. Mitral annular calcification is present. There is moderate tricuspid regurgitation. There is estimated mild pulmonary hypertension present (46 mmHg). BP: / HR: Rhythm: MEASUREMENTS (Male / Female) Normal Values Technical Quality: 2D ECHO LV Diastolic Diameter PLAX 6.8 cm 4.2 - 5.9 / 3.9 - 5.3 cm LV Systolic Diameter PLAX 5.3 cm IVS Diastolic Thickness 0.8 cm 0.6 - 1.0 / 0.6 - 0.9 cm LVPW Diastolic Thickness 1.0 cm 0.6 - 1.0 / 0.6 - 0.9 cm LV Relative Wall Thickness 0.3 RV Internal Dim ED PLAX 2.9 cm LA Systolic Diameter LX 4.8 cm 3.0 - 4.0 / 2.7 - 3.8 cm M-MODE Aortic Root Diameter MM 3.6 cm AV Cusp Separation MM 2.6 cm DOPPLER MR Peak Velocity 520.5 cm/s MR Peak Gradient 108.4 mmHg Mitral E Point Velocity 116.0 cm/s Mitral A Point Velocity 110.0 cm/s Mitral E to A Ratio 1.1 TR Peak Velocity 322.0 cm/s TR Peak Gradient 41.5 mmHg Right Atrial Pressure 5.0 mmHg Pulmonary Artery Systolic Pressu 46.5 mmHg Right Ventricular Systolic Press 46.5 mmHg FINDINGS LEFT VENTRICLE Moderately dilated left ventricle. Wall thickness is normal. The left ventricular systolic function is moderately reduced with an estimated ejection fraction 35% . Akinesis and scarring of the distal anteroseptal and apical myocardium. RIGHT VENTRICLE Normal right ventricular size and systolic function. LEFT ATRIUM The left atrial size is moderately dilated. RIGHT ATRIUM There is a pacemaker wire present in the right atrial cavity. ATRIAL SEPTUM Normal atrial septal thickness without atrial level shunting by limited color doppler interrogation. AORTA The aortic root and proximal ascending aorta are normal in size on limited imaging. MITRAL VALVE Hxrrxdap-zi-jwyfgn mitral valve regurgitation. Mitral annular calcification is present. AORTIC VALVE Trileaflet aortic valve. No aortic valve stenosis or regurgitation. TRICUSPID VALVE There is moderate tricuspid regurgitation. There is estimated mild pulmonary hypertension present (46 mmHg). PULMONARY VALVE No pulmonary valve regurgitation or stenosis. VESSELS The inferior vena cava is normal in size. PERICARDIUM No pericardial effusion. Jacob Coats MD (Electronically Signed) Final Date:18 March 2017 09:46
--- NOTE | 2017-03-18 09:59 | HHI.HP ---
[facility] Primary Care Physician Patricia James MD Chief Complaint Chest pain History of Present Illness This is a 57-year-old male history of CAD, diabetes, hypertension, hyperlipidemia, cardiomyopathy with defibrillator, A. fib status post ablation, alcohol abuse, pancreatitis, and tobacco abuse that presents to ED for evaluation of chest discomfort. States the discomfort began around 4:30 yesterday afternoon and is still there at this time. His left side his chest rating down his left arm and left side his neck. Briefly short of breath. No nausea or diaphoresis. Having a hard time describing the symptoms that when he needed his bypass at age 36 so cannot recall if it is similar discomfort. States he follows Dr. Overton cardiology. States he had a stress test here recently. Reviewed records and he had a stress test November 2016 revealing a large fixed defect along the apex with EF 40% and no reversibility. Last cardiac catheterization on record was in 2007 and bypass grafts were not visualized. Denies recent illness. Denies fevers or chills. Denies dark or tarry stools. Denies blood in stool. Denies emesis. Denies abdominal pain. Voices compliance with all his medications. States he last took Xarelto 2 evenings ago. States he was not given medication last night while in the hospital. Review of Systems General: Patient denies fevers, chills recent, and recent travel HEENT: Patient denies headache, sore throat, difficulty swallowing. Cardiovascular: Has the chest discomfort as mentioned above. Denies sensation of heart beating rapidly or irregularly. No syncope. Denies diaphoresis. Respiratory: Was briefly short of breath. Denies inspirational chest discomfort. Denies coughing wheezing or hemoptysis. GI: Patient denies nausea, vomiting, diarrhea, abdominal pain, bloody stools. Denies dark or tarry stools. Musculoskeletal: Patient denies joint pain or edema. Denies calf pain or edema. Neurovascular: Patient denies numbness, tingling, weakness in extremities. Denies headache. Endocrine: Denies polyuria and polydipsia. Hematologic: Denies easy bruising. Skin: Denies rash or itching. Past Family Social History Allergies: Coded Allergies: cefazolin (Unverified Allergy, Severe, Hives, 10/28/16) nitroglycerin (Unverified Adverse Reaction, Intermediate, Nausea/Vomiting , 10/28/16) aspirin (Verified Adverse Reaction, Unknown, gi upset, 11/25/16) Past Medical History CAD with bypass age 36. Diabetes, hypertension, hyperlipidemia, cardiomyopathy and has defibrillator, atrial fibrillation status post ablation alcohol abuse, pancreatitis, tobacco abuse. Past Surgical History CABG. Cardiac catheterizations. Endoscopies and colonoscopy. Defibrillator. Reported Medications Reported Meds & Active Scripts Active Ventolin Hfa 18 GM Inh (Albuterol Sulfate) 90 Mcg/Act Aer 2 Puff INH Q4H PRN Blood Glucose System Donny (Blood Glucose Monitoring Suppl) 1 Kit Kit Kit Glipizide 5 Mg Tab 5 Mg PO DAILY Take 30 minutes before a meal Reported Metoprolol Succinate ER 24 HR (Metoprolol Succinate) 50 Mg Tab 50 Mg PO DAILY Gabapentin 100 Mg Cap 100 Mg PO TID Levetiracetam 1,000 Mg Tab 1,000 Mg PO BID Simvastatin 10 Mg Tab 10 Mg PO DAILY Xarelto (Rivaroxaban) 20 Mg Tab 20 Mg PO DAILY Active Ordered Medications Current Medications Medications (Trade) Dose Ordered Sig/Viky Route Start Time Stop Time Status Last Admin (NS Flush) 2 ml UNSCH PRN IV FLUSH 03/17/17 22:15 (NS Flush) 2 ml BID IV FLUSH 03/18/17 09:00 03/18/17 07:54 (Duoneb Neb) 1 ampule Q4HR NEB PRN INH 03/18/17 08:15 Sodium Chloride 1,000 ml @ 125 mls/hr Q8H IV 03/18/17 09:00 03/18/17 16:59 03/18/17 08:47 (Protonix) 40 mg DAILY PO 03/18/17 09:00 03/18/17 08:39 (Morphine Inj) 4 mg Q4H PRN IV PUSH 03/18/17 08:30 03/18/17 08:45 (Neurontin) 100 mg TID PO 03/18/17 09:00 03/18/17 08:47 (Keppra) 1,000 mg BID PO 03/18/17 09:00 03/18/17 08:46 (Toprol Xl) 50 mg DAILY PO 03/18/17 09:00 03/18/17 08:46 (Pravachol) 20 mg DAILY PO 03/18/17 09:00 03/18/17 08:47 (NovoLOG SUPPLEMENTAL SCALE) 1 ACHS SLIDING SCALE SQ 03/18/17 12:00 (D50w (Vial) Inj) 50 ml UNSCH PRN IV PUSH 03/18/17 08:30 (Glucagon Inj) 1 mg UNSCH PRN OTHER 03/18/17 08:30 (Aspirin) 325 mg DAILY PO 03/18/17 09:00 (Nitroglycerin 2% Oint) 0.5 inch Q6HR TOPICAL 03/18/17 12:00 UNV Family History Mother had CAD. Social History Patient continues to smoke cigarettes at one pack a day for approximately 30 years. Denies illicit drugs. States he had no alcohol for months and had 4 beers on . Physical Exam Vital Signs Vital Signs Date Time Temp Pulse Resp B/P (MAP) Pulse Ox O2 Delivery O2 Flow Rate FiO2 03/18/17 07:57 100 21 03/18/17 07:24 97.6 90 24 112/58 (76) 97 03/18/17 04:00 82 03/18/17 03:36 98.1 84 18 102/59 (73) 96 03/18/17 01:13 16 03/17/17 23:26 97.9 77 18 100/57 (71) 99 03/17/17 21:44 67 14 112/61 (78) 100 Room Air 03/17/17 20:40 16 03/17/17 19:50 17 100 Room Air 03/17/17 19:50 100 Room Air 03/17/17 19:33 98.4 71 18 102/57 (72) 100 Physical Exam GENERAL: This is a well-nourished, well-developed patient, in no apparent distress. Patient appears older than stated age. Patient speaks in clear complete sentences. Patient is pleasant. HEENT: Head is atraumatic and normocephalic. Neck is supple without lymphadenopathy and trachea is midline. No JVD or carotid bruits. CARDIOVASCULAR: 1/6 systolic murmur left sternal border. Regular rate and rhythm without gallops, or rubs. RESPIRATORY: There are inspiratory and expiratory wheezing, more so at right base. No rales or rhonchi. Chest wall is nontender. No use of accessory muscles. GASTROINTESTINAL: Abdomen is nontender, nondistended. Abdomen soft. No obvious pulsatile mass or bruit. No CVA tenderness. Strong femoral pulses bilaterally. Normal bowel sounds in all quadrants. Stool is heme-negative. MUSCULOSKELETAL: Patient is moving upper and lower extremities freely. No calf tenderness or edema, no Homans sign. Strong pulses in upper and lower extremities. NEUROLOGICAL: Patient is alert and oriented. Cranial nerves 2-12 are grossly intact. No focal deficits and speech is clear. SKIN: No rash and turgor is normal. Laboratory Laboratory Tests Test 03/17/17 19:40 03/17/17 23:40 03/18/17 01:15 03/18/17 08:35 White Blood Count 5.7 5.1 Red Blood Count 3.69 3.52 Hemoglobin 9.2 8.9 Hematocrit 29.8 28.2 Mean Corpuscular Volume 80.8 80.2 Mean Corpuscular Hemoglobin 25.0 25.3 Mean Corpuscular Hemoglobin Concent 30.9 31.6 Red Cell Distribution Width 17.5 17.9 Platelet Count 85 79 Mean Platelet Volume 9.7 9.1 Neutrophils (%) (Auto) 42.9 60.2 Lymphocytes (%) (Auto) 40.2 24.7 Monocytes (%) (Auto) 13.8 12.0 Eosinophils (%) (Auto) 2.3 2.4 Basophils (%) (Auto) 0.8 0.7 Neutrophils # (Auto) 2.5 3.1 Lymphocytes # (Auto) 2.3 1.3 Monocytes # (Auto) 0.8 0.6 Eosinophils # (Auto) 0.1 0.1 Basophils # (Auto) 0.0 0.0 CBC Comment AUTO DIFF AUTO DIFF Differential Comment AUTO DIFF CONFIRMED AUTO DIFF CONFIRMED Platelet Estimate LOW LOW Platelet Morphology Comment ENLARGED ENLARGED Ovalocytes 1+ 1+ Prothrombin Time 10.9 Prothromb Time International Ratio 1.1 Blood Urea Nitrogen 5 Creatinine 0.94 Random Glucose 213 Calcium Level 8.6 Sodium Level 134 Potassium Level 3.7 Chloride Level 98 Carbon Dioxide Level 26.1 Anion Gap 10 Estimat Glomerular Filtration Rate 83 Total Creatine Kinase 90 78 74 Troponin I LESS THAN 0.02 LESS THAN 0.02 LESS THAN 0.02 Result Diagram: 03/18/17 0835 03/17/171939 Imaging Last 48 hours Impressions Chest X-Ray 03/17/171936 Signed Impressions: Service Date/Time: Friday, March 17, 2017 19:48 - CONCLUSION: No acute cardiopulmonary disease. K. Jama Shamlou, MD Course EKGs are sinus rhythm with inferior and lateral ST-T changes. Caprini VTE Risk Assessment Caprini VTE Risk Assessment: No/Low Risk (score <= 1) Caprini Risk Assessment Model Point Value = 1 Point Value = 2 Point Value = 3 Point Value = 5 Age 41-60 Minor surgery BMI > 25 kg/m2 Swollen legs Varicose veins or History of unexplained or recurrent spontaneous Oral contraceptives or hormone replacement Sepsis (< 1 month) Serious lung disease, including pneumonia (< 1 month) Abnormal pulmonary function Acute myocardial infarction Congestive heart failure (< 1 month) History of inflammatory bowel disease Medical patient at bed rest Age 61-74 Arthroscopic surgery Major open surgery (> 45 min) Laparoscopic surgery (> 45 min) Malignancy Confined to bed (> 72 hours) Immobilizing plaster cast Central venous access Age >= 75 History of VTE Family history of VTE Factor V Leiden Prothrombin [id number] Lupus anticoagulant Anticardiolipin antibodies Elevated serum homocysteine Heparin-induced thrombocytopenia Other congenital or acquired thrombophilia Stroke (< 1 month) Elective arthroplasty Hip, pelvis, or leg fracture Acute spinal cord injury (< 1 month) Prophylaxis Regimen Total Risk Factor Score Risk Level Prophylaxis Regimen 0-1 Low Early ambulation 2 Moderate Order ONE of the following: *Sequential Compression Device (SCD) *Heparin 5000 units SQ BID 3-4 Higher Order ONE of the following medications: *Heparin 5000 units SQ TID *Enoxaparin/Lovenox 40 mg SQ daily (WT < 150 kg, CrCl > 30 mL/min) *Enoxaparin/Lovenox 30 mg SQ daily (WT < 150 kg, CrCl > 10-29 mL/min) *Enoxaparin/Lovenox 30 mg SQ BID (WT < 150 kg, CrCl > 30 mL/min) AND/OR *Sequential Compression Device (SCD) 5 or more Highest Order ONE of the following medications: *Heparin 5000 units SQ TID (Preferred with Epidurals) *Enoxaparin/Lovenox 40 mg SQ daily (WT < 150 kg, CrCl > 30 mL/min) *Enoxaparin/Lovenox 30 mg SQ daily (WT < 150 kg, CrCl > 10-29 mL/min) *Enoxaparin/Lovenox 30 mg SQ BID (WT < 150 kg, CrCl > 30 mL/min) AND *Sequential Compression Device (SCD) Assessment and Plan Assessment and Plan * Chest pain: Patient has continued chest discomfort. Has history of CAD and cardiac catheterization from 2007 showing that his grafts were not visualized. Patient was seen by Dr. Zambrano cardiology in the chest pain center. Patient was admitted to [facility] and Dr. Coats has been consulted. At this time no heparin. Xarelto will be held. Further plan to be determined by Dr. Coats and [facility]. * CAD: Dr. Coats is evaluating the patient. * Anemia: His hemoglobin was 9.2 in the ED. It was 11.21 November 2016. Stool was heme-negative. I've ordered a repeat CBC and Dr Rosenbaum is aware the patient's anemia. * Hypertension: Continue current medication. * Hyperlipidemia: Continue current medication. * Abuse: Patient has been counseled on importance of smoking cessation. Patient is agreeable to this plan. Alejandro Peerz Mar 18, 2017 09:59
--- NOTE | 2017-03-18 10:07 | MB ---
cc: JAKUB ALDRICH M.D. DATE OF CONSULTATION 03/18/2017 REASON FOR CONSULTATION Evaluation of chest pain. HISTORY OF PRESENT ILLNESS Williams Robertson is a noncompliant 57-year-old man with known coronary artery disease. He had bypass surgery in 1997. Apparently had a vein graft to the diagonal and marginal and the TAPIA to the LAD. His last catheterization here was December 28, 2007. The left internal mammary and all vein grafts were occluded. His left anterior descending artery had a proximal stent with about a 30% in-stent restenosis. The ramus, codominant, circumflex and codominant right coronary artery did not have any blockages. He has not had a cath since then. Apparently he had a previous anteroapical IL from the LAD. His nuclear stress test November 26 this year shows a large fixed apical defect with an EF of 40%. He has a [employer]otron[employer] defibrillator, but was not kept up with office checks. The last check on the defibrillator was in July. He sees Dr. Beaulieu once a year and he is followed by Dr. James. The patient comes in complaining of chest pain which is in his left chest with radiation to the left arm, left neck and has been more or less constant since yesterday evening with only intermittent relief. He continues to smoke a half pack cigarettes a day. He is on statin therapy of Simvastatin 10 mg daily. He has been on Xarelto for an apical thrombus. The last dose of Xarelto was Wednesday evening. PAST MEDICAL HISTORY Includes: 1. Coronary artery disease 2. Peripheral arterial disease with severe disease of the right superficial femoral artery. 3. Fatty liver disease 4. COPD 5. Ongoing smoking 6. Gout 7. 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 He was noted to be anemic this admission and the etiology for that is not clear. PAST SURGICAL HISTORY Include: 1. Bypass surgery 2. Defibrillator SOCIAL HISTORY Ongoing smoking. Drinks 6-12 beers daily. 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 Denies illicit drug use. FAMILY HISTORY Positive for COPD and heart disease in the mother. Father of cancer. REVIEW OF SYSTEMS Denies any bleeding. PHYSICAL EXAMINATION A well-developed, well-nourished man in no acute distress. VITAL SIGNS: Charted. HEENT: Exam unremarkable. NECK: No JVD, no bruits. CHEST: Shows a few scattered expiratory wheezes. CARDIAC: PMI is displaced laterally, normal S1, S2, and S3, regular rate and rhythm with a 1/6 systolic murmur. ABDOMEN: Soft, but could not palpate deeply. EXTREMITIES: Reveal absent right pedal pulses, palpable left posterior tibial, but absent dorsalis pedis pulse. Femoral pulses are intact bilaterally. EKG. His EKG demonstrates a normal sinus rhythm, biatrial abnormality, nonspecific ST changes. LABORATORY Hematocrit 28.2, it was 29.8 yesterday. Platelet count is 85 and 79,000. These are chronic for him. Troponins negative x3. Creatinine is 0.94. Chest x-ray report shows cardiomegaly. IMPRESSION This is a 56-year-old male with unstable angina, chronic tobacco and alcohol abuse, noncompliance with known coronary disease with occlusion of all of his grafts. RECOMMENDATIONS I recommend a cardiac catheterization. I have explained this to the patient. He is not consenting at this time. He wants to think about it further. He is currently n.p.o. I have added nitro-paste. Further therapy to be determined. MD ROBERT Sharp/TEENA /9:20 AM /9:28 AM
[2017-03-18] MEDS: ASPIRIN 325 MG TAB PO SCH (10:25)
--- NOTE | 2017-03-18 10:32 | HHI.PR ---
Subjective Remarks in no acute distress. has some on and off chest pain. no sob. d/w the RN at the bedside. Objective Vitals Vital Signs Date Time Temp Pulse Resp B/P (MAP) Pulse Ox O2 Delivery O2 Flow Rate FiO2 03/18/17 07:57 100 21 03/18/17 07:24 97.6 90 24 112/58 (76) 97 03/18/17 04:00 82 03/18/17 03:36 98.1 84 18 102/59 (73) 96 03/18/17 01:13 16 03/17/17 23:26 97.9 77 18 100/57 (71) 99 03/17/17 21:44 67 14 112/61 (78) 100 Room Air 03/17/17 20:40 16 03/17/17 19:50 17 100 Room Air 03/17/17 19:50 100 Room Air 03/17/17 19:33 98.4 71 18 102/57 (72) 100 Result Diagram: 03/18/17 0835 03/17/171939 Imaging Last Impressions Chest X-Ray 03/17/171936 Signed Impressions: Service Date/Time: Friday, March 17, 2017 19:48 - CONCLUSION: No acute cardiopulmonary disease. Iban Mcgee MD Objective Remarks GENERAL: This is a well-nourished, well-developed patient, in no apparent distress. CARDIOVASCULAR: Regular rate and regular rhythm without murmurs, gallops, or rubs. RESPIRATORY: Clear to auscultation. Breath sounds equal bilaterally. No wheezes , rales, or rhonchi. GASTROINTESTINAL: Abdomen soft, non-tender, nondistended. Normal, active bowel sounds MUSCULOSKELETAL: Extremities without clubbing, cyanosis, or edema. NEURO: Alert & Oriented x4 to person, place, time, situation. Moves all ext x4 Medications and IVs Inpatient Medications Albuterol/ Ipratropium (Duoneb Neb) 1 ampule STAT ONCE INH Last administered on 03/18/17at 08:32; Start 03/18/17 at 08:15; Stop 03/18/17 at 08:18; Status DC Aspirin (Aspirin) 325 mg DAILY PO ; Start 03/18/17 at 09:00 Dextrose (D50w (Vial) Inj) 50 ml UNSCH PRN IV PUSH HYPOGLYCEMIA-SEE COMMENTS; Start 03/18/17 at 08:30 Diphenhydramine HCl (Benadryl Liq) 15 mg ONCE ONCE PO Last administered on 03/17/17at 23:54; Start 03/17/17 at 23:45; Stop 03/17/17 at 23:46; Status DC Gabapentin (Neurontin) 100 mg TID PO Last administered on 03/18/17at 08:47; Start 03/18/17 at 09:00 Glucagon (Glucagon Inj) 1 mg UNSCH PRN OTHER HYPOGLYCEMIA-SEE COMMENTS; Start 03/18/17 at 08:30 Insulin Aspart (NovoLOG SUPPLEMENTAL SCALE) 1 ACHS SLIDING SCALE SQ ; Start 03/18/17 at 12:00 Ketorolac Tromethamine (Toradol Inj) 30 mg ONCE ONCE IV PUSH Last administered on 03/17/17at 21:43; Start 03/17/17 at 21:45; Stop 03/17/17 at 21:46; Status DC Levetriacetam (Keppra) 1,000 mg BID PO Last administered on 03/18/17at 08:46; Start 03/18/17 at 09:00 Metoprolol Succinate (Toprol Xl) 50 mg DAILY PO Last administered on 03/18/17at 08:46; Start 03/18/17 at 09:00 Morphine Sulfate (Morphine Inj) 4 mg Q4H PRN IV PUSH PAIN SCALE 6 TO 10 Last administered on 03/18/17at 08:45; Start 03/18/17 at 08:30 Nitroglycerin (Nitroglycerin 2% Oint) 0.5 inch Q6HR TOPICAL ; Start 03/18/17 at 12:00 Ondansetron HCl (Zofran Inj) 4 mg ONCE ONCE IV PUSH Last administered on at 20:09; Start 03/17/17 at 20:00; Stop 03/17/17 at 20:01; Status DC Pantoprazole Sodium (Protonix Inj) 40 mg ONCE ONCE IV PUSH Last administered on 03/17/17at 20:09; Start 03/17/17 at 20:00; Stop 03/17/17 at 20:01; Status DC Pantoprazole Sodium (Protonix) 40 mg DAILY PO Last administered on 03/18/17at 08: 39; Start 03/18/17 at 09:00 Pravastatin Sodium (Pravachol) 20 mg DAILY PO Last administered on 03/18/17at 08: 47; Start 03/18/17 at 09:00 Sodium Chloride 1,000 ml @ 125 mls/hr Q8H IV Last administered on 03/18/17at 08: 47; Start 03/18/17 at 09:00; Stop 03/18/17 at 16:59 Sodium Chloride (NS Flush) 2 ml BID IV FLUSH Last administered on 03/18/17at 07: 54; Start 03/18/17 at 09:00 A/P Assessment and Plan A/P -chest pain with history of CAD continue aspirin and BB- cardiology consult appreciated and plan for cardiac cath when the patient agrees. -anemia check the stool for blood- check the iron panel- CBC in am. -hypertension; continue BB- will monitor and adjust the regimen as needed. -seizure disorder; continue home meds. Graciela Rosenbaum MD Mar 18, 2017 10:32
[2017-03-18] MEDS: INSULIN ASPART SUPPLEMENTAL SCALE SQ SCH ×3 (12:05→22:14)
[2017-03-18] MEDS: NITROGLYCERIN 2% OINT 1 GM PACKET TOPICAL SCH ×2 (12:26→17:56)
[2017-03-18 12:42] LABS: % SATURATION IRON PROFILE 4.4 % (20-50); IRON (FE) 19 MCG/DL (65-175); TOTAL IRON BINDING CAPACITY 433 MCG/DL (250-450)
[2017-03-18 12:44] LABS: FERRITIN 14 NG/ML (26-388)
--- NOTE | 2017-03-18 19:30 | EKG ---
Date Performed: 03/17/2017 Time Performed: 19:42:09 PTAGE: 57 years EKG: ECTOPIC ATRIAL RHYTHM MODERATE INTRAVENTRICULAR CONDUCTION DELAY ST DEVIATION AND MODERATE T-WAVE ABNORMALITY, CONSIDER INFERIOR ISCHEMIA ABNORMAL ECG ARTIFACT Since PREVIOUS TRACING , no significant change noted PREVIOUS TRACIN11/25/2016 23.03 DOCTOR: Iona Zambrano Interpretating Date/Time 03/18/2017 19:30:09
--- NOTE | 2017-03-18 19:35 | EKG ---
Date Performed: 03/18/2017 Time Performed: 01:49:44 PTAGE: 57 years EKG: Sinus rhythm POSSIBLE RIGHT ATRIAL ENLARGEMENT POSSIBLE LEFT ATRIAL ENLARGEMENT MODERATE INTRAVENTRICULAR CONDUCT ION DELAY NONSPECIFIC T-WAVE ABNORMALITY BORDERLINE ECG Since PREVIOUS TRACING , no significant change noted PREVIOUS TRACIN03/17/2017 19.42 DOCTOR: Iona Zambrano Interpretating Date/Time 03/18/2017 19:34:35
[2017-03-19] VITALS (12 sets, daily range): BP systolic 91–127; BP diastolic 52–72; PULSE 68–84; RESP 16–20; TEMP 97.7–98.8; O2SAT 96–97
[2017-03-19] MEDS: MORPHINE SULFATE 2 MG/ML INJ IV PUSH PRN ×4 (03:28→20:35)
[2017-03-19] MEDS: NITROGLYCERIN 2% OINT 1 GM PACKET TOPICAL SCH ×4 (05:13→18:39)
[2017-03-19] MEDS: INSULIN ASPART SUPPLEMENTAL SCALE SQ SCH ×4 (07:52→21:00)
--- NOTE | 2017-03-19 08:52 | PD.CARD.PN ---
Subjective Subjective Remarks Continues to have chest pain and likes Morphine Objective Medications Current Medications Medications (Trade) Dose Ordered Sig/Viky Route Start Time Stop Time Status Last Admin (NS Flush) 2 ml UNSCH PRN IV FLUSH 03/17/17 22:15 (NS Flush) 2 ml BID IV FLUSH 03/18/17 09:00 03/18/17 07:54 (Duoneb Neb) 1 ampule Q4HR NEB PRN INH 03/18/17 08:15 (Protonix) 40 mg DAILY PO 03/18/17 09:00 03/18/17 08:39 (Morphine Inj) 4 mg Q4H PRN IV PUSH 03/18/17 08:30 03/19/17 08:01 (Neurontin) 100 mg TID PO 03/18/17 09:00 03/18/17 17:56 (Keppra) 1,000 mg BID PO 03/18/17 09:00 03/18/17 21:36 (Toprol Xl) 50 mg DAILY PO 03/18/17 09:00 03/18/17 08:46 (Pravachol) 20 mg DAILY PO 03/18/17 09:00 03/18/17 08:47 (NovoLOG SUPPLEMENTAL SCALE) 1 ACHS SLIDING SCALE SQ 03/18/17 12:00 03/18/17 22:14 (D50w (Vial) Inj) 50 ml UNSCH PRN IV PUSH 03/18/17 08:30 (Glucagon Inj) 1 mg UNSCH PRN OTHER 03/18/17 08:30 (Aspirin) 325 mg DAILY PO 03/18/17 09:00 03/18/17 10:25 (Nitroglycerin 2% Oint) 0.5 inch Q6HR TOPICAL 03/18/17 12:00 03/19/17 05:13 Vital Signs / I&O Vital Signs Date Time Temp Pulse Resp B/P (MAP) Pulse Ox O2 Delivery O2 Flow Rate FiO2 03/19/17 07:58 80 127/72 (90) 03/19/17 03:41 18 03/19/17 03:29 78 03/19/17 03:13 97.7 79 19 111/58 (75) 97 03/19/17 00:15 98.0 84 20 91/52 (65) 96 03/19/17 00:03 71 03/18/17 21:30 97.9 81 18 105/59 (74) 98 03/18/17 20:32 77 03/18/17 15:45 98.4 83 22 101/54 (70) 97 03/18/17 12:15 77 110/70 (83) 03/18/17 11:41 75 03/18/17 11:32 97.3 70 18 94/55 (68) 97 Physical Exam Alert Chest clear CV S2S2 S3 RRR no edema Assessment and Plan Problem List: (1) Cardiomyopathy ICD Codes: I42.9 - Cardiomyopathy Status: Acute (2) Tobacco abuse ICD Codes: Z72.0 - Tobacco use (3) Thrombocytopenia ICD Codes: D69.6 - Thrombocytopenia Status: Acute (4) Systolic CHF, chronic ICD Codes: I50.22 - Chronic systolic congestive heart failure Status: Chronic (5) ETOH abuse ICD Codes: F10.10 - ETOH abuse Status: Chronic (6) Chest pain ICD Codes: R07.9 - Chest pain, unspecified Status: Resolved Assessment and Plan No objective evidence of ischemia but continues to have chest pain. I tried yesterday to get consent for cath to resolve the issue but he declines "I'm too scared. Counseled to quit drinking/smoking. Not sure what else to offer. Dr. Rivera song plugger and available prn. Jacob Coats MD Mar 19, 2017 08:52
--- NOTE | 2017-03-19 09:07 | HHI.PR ---
Subjective Remarks in no acute distress. still with on and off chest pain. not sure if he wants to proceed with heart catheterization. Objective Vitals Vital Signs Date Time Temp Pulse Resp B/P (MAP) Pulse Ox O2 Delivery O2 Flow Rate FiO2 03/19/17 07:58 80 127/72 (90) 03/19/17 03:41 18 03/19/17 03:29 78 03/19/17 03:13 97.7 79 19 111/58 (75) 97 03/19/17 00:15 98.0 84 20 91/52 (65) 96 03/19/17 00:03 71 03/18/17 21:30 97.9 81 18 105/59 (74) 98 03/18/17 20:32 77 03/18/17 15:45 98.4 83 22 101/54 (70) 97 03/18/17 12:15 77 110/70 (83) 03/18/17 11:41 75 03/18/17 11:32 97.3 70 18 94/55 (68) 97 Result Diagram: 03/18/1735 03/17/171939 Imaging Last Impressions Chest X-Ray 03/17/171936 Signed Impressions: Service Date/Time: Friday, March 17, 2017 19:48 - CONCLUSION: No acute cardiopulmonary disease. Iban Mcgee MD Objective Remarks GENERAL: This is a well-nourished, well-developed patient, in no apparent distress. CARDIOVASCULAR: Regular rate and regular rhythm without murmurs, gallops, or rubs. RESPIRATORY: Clear to auscultation. Breath sounds equal bilaterally. No wheezes , rales, or rhonchi. GASTROINTESTINAL: Abdomen soft, non-tender, nondistended. Normal, active bowel sounds MUSCULOSKELETAL: Extremities without clubbing, cyanosis, or edema. NEURO: Alert & Oriented x4 to person, place, time, situation. Moves all ext x4 Medications and IVs Inpatient Medications Albuterol/ Ipratropium (Duoneb Neb) 1 ampule STAT ONCE INH Last administered on 03/18/17at 08:32; Start 03/18/17 at 08:15; Stop 03/18/17 at 08:18; Status DC Aspirin (Aspirin) 325 mg DAILY PO Last administered on 03/18/17at 10:25; Start at 09:00 Dextrose (D50w (Vial) Inj) 50 ml UNSCH PRN IV PUSH HYPOGLYCEMIA-SEE COMMENTS; Start 03/18/17 at 08:30 Diphenhydramine HCl (Benadryl Liq) 15 mg ONCE ONCE PO Last administered on 03/17/17at 23:54; Start 03/17/17 at 23:45; Stop 03/17/17 at 23:46; Status DC Gabapentin (Neurontin) 100 mg TID PO Last administered on 03/18/17at 17:56; Start 03/18/17 at 09:00 Glucagon (Glucagon Inj) 1 mg UNSCH PRN OTHER HYPOGLYCEMIA-SEE COMMENTS; Start 03/18/17 at 08:30 Insulin Aspart (NovoLOG SUPPLEMENTAL SCALE) 1 ACHS SLIDING SCALE SQ Last administered on 03/18/17at 22:14; Start 03/18/17 at 12:00 Ketorolac Tromethamine (Toradol Inj) 30 mg ONCE ONCE IV PUSH Last administered on 03/17/17at 21:43; Start 03/17/17 at 21:45; Stop 03/17/17 at 21:46; Status DC Levetriacetam (Keppra) 1,000 mg BID PO Last administered on 03/18/17at 21:36; Start 03/18/17 at 09:00 Metoprolol Succinate (Toprol Xl) 50 mg DAILY PO Last administered on 03/18/17at 08:46; Start 03/18/17 at 09:00 Morphine Sulfate (Morphine Inj) 4 mg Q4H PRN IV PUSH PAIN SCALE 6 TO 10 Last administered on 03/19/17at 08:01; Start 03/18/17 at 08:30 Nitroglycerin (Nitroglycerin 2% Oint) 0.5 inch Q6HR TOPICAL Last administered on 03/19/17at 05:13; Start 03/18/17 at 12:00 Ondansetron HCl (Zofran Inj) 4 mg ONCE ONCE IV PUSH Last administered on at 20:09; Start 03/17/17 at 20:00; Stop 03/17/17 at 20:01; Status DC Pantoprazole Sodium (Protonix Inj) 40 mg ONCE ONCE IV PUSH Last administered on 03/17/17at 20:09; Start 03/17/17 at 20:00; Stop 03/17/17 at 20:01; Status DC Pantoprazole Sodium (Protonix) 40 mg DAILY PO Last administered on 03/18/17at 08: 39; Start 03/18/17 at 09:00 Pravastatin Sodium (Pravachol) 20 mg DAILY PO Last administered on 03/18/17at 08: 47; Start 03/18/17 at 09:00 Sodium Chloride 1,000 ml @ 125 mls/hr Q8H IV Last administered on 03/18/17at 08: 47; Start 03/18/17 at 09:00; Stop 03/18/17 at 16:59; Status DC Sodium Chloride (NS Flush) 2 ml BID IV FLUSH Last administered on 03/18/17at 07: 54; Start 03/18/17 at 09:00 A/P Assessment and Plan A/P -chest pain with history of CAD continue aspirin and BB- cardiology consult appreciated and plan for cardiac cath when the patient agrees. -anemia- iron deficiency will consult GI- since there's been a drop in H/H and patient is on Xarelto -hypertension; continue BB- will monitor and adjust the regimen as needed. -seizure disorder; continue home meds. Graciela Rosenbaum MD Mar 19, 2017 09:07
[2017-03-19] MEDS: ASPIRIN 325 MG TAB PO SCH (10:20)
[2017-03-19] MEDS: GABAPENTIN 100 MG CAP PO SCH ×3 (10:20→18:39)
[2017-03-19] MEDS: levETIRAcetam 500 MG TAB PO SCH ×2 (10:22→20:35)
[2017-03-19] MEDS: METOPROLOL SUCCINATE 50 MG EXTENDED RELEASE TAB PO SCH (10:22)
[2017-03-19] MEDS: PANTOPRAZOLE SOD 40 MG DELAYED RELEASE TAB PO SCH (10:22)
[2017-03-19] MEDS: PRAVASTATIN SOD 20 MG TAB PO SCH (10:22)
[2017-03-19] MEDS: SODIUM CHLORIDE 0.9% FLUSH 10 ML FLUSH IV FLUSH SCH ×2 (10:23→20:34)
[2017-03-19 11:29] LABS: AUTOMATED NEUTROPHIL # 3.3 TH/MM3 (1.8-7.7); BASOPHIL % 0.3 % (0.0-2.0); EOSINOPHIL # 0.1 TH/MM3 (0-0.4); EOSINOPHIL % 2.4 % (0.0-4.0); HEMOGLOBIN 8.2 GM/DL (13.0-17.0); LYMPH % 26.5 % (9.0-44.0); LYMPHOCYTE # 1.4 TH/MM3 (1.0-4.8); MEAN CELL VOLUME 81.1 FL (80.0-100.0); MEAN CORPUSCULAR HEMOGLOBIN 24.6 PG (27.0-34.0); MEAN CORPUSCULAR HGB CONC 30.3 % (32.0-36.0); MEAN PLATELET VOLUME 9.6 FL (7.0-11.0); MONO % 9.3 % (0.0-8.0); MONOCYTE # 0.5 TH/MM3 (0-0.9); NEUT % 61.5 % (16.0-70.0); PLATELET COUNT 63 TH/MM3 (150-450); RED BLOOD COUNT 3.32 MIL/MM3 (4.50-5.90); RED CELL DISTRIBUTION WIDTH 17.9 % (11.6-17.2); WHITE BLOOD COUNT 5.4 TH/MM3 (4.0-11.0)
[2017-03-19 12:15] LABS: OVALOCYTES 1+ (NORMAL)
[2017-03-20] VITALS (11 sets, daily range): BP systolic 92–124; BP diastolic 56–65; PULSE 68–80; RESP 17–20; TEMP 98–98.3; O2SAT 95–99
[2017-03-20] MEDS: NITROGLYCERIN 2% OINT 1 GM PACKET TOPICAL SCH ×4 (00:32→17:02)
[2017-03-20] MEDS: MORPHINE SULFATE 2 MG/ML INJ IV PUSH PRN ×6 (00:33→21:50)
[2017-03-20] MEDS: INSULIN ASPART SUPPLEMENTAL SCALE SQ SCH ×4 (08:00→21:00)
[2017-03-20] MEDS: SODIUM CHLORIDE 0.9% FLUSH 10 ML FLUSH IV FLUSH SCH ×2 (08:10→21:47)
[2017-03-20] MEDS: PANTOPRAZOLE SOD 40 MG DELAYED RELEASE TAB PO SCH (08:10)
[2017-03-20] MEDS: METOPROLOL SUCCINATE 50 MG EXTENDED RELEASE TAB PO SCH (08:10)
[2017-03-20] MEDS: ASPIRIN 325 MG TAB PO SCH (08:10)
[2017-03-20] MEDS: GABAPENTIN 100 MG CAP PO SCH ×3 (08:11→17:00)
[2017-03-20] MEDS: PRAVASTATIN SOD 20 MG TAB PO SCH (08:11)
[2017-03-20] MEDS: levETIRAcetam 500 MG TAB PO SCH ×2 (08:11→21:48)
[2017-03-20] MEDS: ASCORBIC ACID 500 MG TAB PO SCH ×2 (08:11→21:48)
[2017-03-20] MEDS: FERROUS SULFATE 325 MG (65 MG ELEMENTAL IRON) TAB PO SCH ×2 (08:11→21:47)
--- NOTE | 2017-03-20 08:38 | HHI.PR ---
Subjective Remarks in no acute distress. has on and off chest pain. no sob or other complaints. d/w the RN. Objective Vitals Vital Signs Date Time Temp Pulse Resp B/P (MAP) Pulse Ox O2 Delivery O2 Flow Rate FiO2 03/20/17 07:33 98.0 75 18 105/58 (74) 95 03/20/17 04:13 98.1 80 17 100/57 (71) 96 03/19/17 23:42 98.8 73 17 105/56 (72) 97 03/19/17 23:00 71 03/19/17 20:23 98.4 75 16 99/55 (70) 97 03/19/17 20:00 71 03/19/17 16:38 113/65 (81) 97 03/19/17 14:12 71 16 107/58 (74) 97 03/19/17 14:05 98.6 68 20 111/55 (73) 96 Result Diagram: 03/19/17 1050 03/17/171939 Imaging Last Impressions Chest X-Ray 03/17/171936 Signed Impressions: Service Date/Time: Friday, March 17, 2017 19:48 - CONCLUSION: No acute cardiopulmonary disease. Iban Mcgee MD Objective Remarks GENERAL: This is a well-nourished, well-developed patient, in no apparent distress. CARDIOVASCULAR: Regular rate and regular rhythm without murmurs, gallops, or rubs. RESPIRATORY: Clear to auscultation. Breath sounds equal bilaterally. No wheezes , rales, or rhonchi. GASTROINTESTINAL: Abdomen soft, non-tender, nondistended. Normal, active bowel sounds MUSCULOSKELETAL: Extremities without clubbing, cyanosis, or edema. NEURO: Alert & Oriented x4 to person, place, time, situation. Moves all ext x4 Medications and IVs Inpatient Medications Albuterol/ Ipratropium (Duoneb Neb) 1 ampule STAT ONCE INH Last administered on 03/18/17at 08:32; Start 03/18/17 at 08:15; Stop 03/18/17 at 08:18; Status DC Ascorbic Acid (Vitamin C) 250 mg BID PO Last administered on 03/20/17at 08:11; Start 03/20/17 at 09:00 Aspirin (Aspirin) 325 mg DAILY PO Last administered on 03/20/17at 08:10; Start at 09:00 Dextrose (D50w (Vial) Inj) 50 ml UNSCH PRN IV PUSH HYPOGLYCEMIA-SEE COMMENTS; Start 03/18/17 at 08:30 Diphenhydramine HCl (Benadryl Liq) 15 mg ONCE ONCE PO Last administered on 03/17/17at 23:54; Start 03/17/17 at 23:45; Stop 03/17/17 at 23:46; Status DC Ferrous Sulfate (Ferrous Sulfate) 325 mg BID PO Last administered on 03/20/17at 08:11; Start 03/20/17 at 09:00 Gabapentin (Neurontin) 100 mg TID PO Last administered on 03/20/17at 08:11; Start 03/18/17 at 09:00 Glucagon (Glucagon Inj) 1 mg UNSCH PRN OTHER HYPOGLYCEMIA-SEE COMMENTS; Start 03/18/17 at 08:30 Insulin Aspart (NovoLOG SUPPLEMENTAL SCALE) 1 ACHS SLIDING SCALE SQ Last administered on 03/18/17at 22:14; Start 03/18/17 at 12:00 Ketorolac Tromethamine (Toradol Inj) 30 mg ONCE ONCE IV PUSH Last administered on 03/17/17at 21:43; Start 03/17/17 at 21:45; Stop 03/17/17 at 21:46; Status DC Levetriacetam (Keppra) 1,000 mg BID PO Last administered on 03/20/17at 08:11; Start 03/18/17 at 09:00 Metoprolol Succinate (Toprol Xl) 50 mg DAILY PO Last administered on 03/20/17at 08:10; Start 03/18/17 at 09:00 Morphine Sulfate (Morphine Inj) 4 mg Q4H PRN IV PUSH PAIN SCALE 6 TO 10 Last administered on 03/20/17at 08:12; Start 03/18/17 at 08:30 Nitroglycerin (Nitroglycerin 2% Oint) 0.5 inch Q6HR TOPICAL Last administered on 03/20/17at 04:47; Start 03/18/17 at 12:00 Ondansetron HCl (Zofran Inj) 4 mg ONCE ONCE IV PUSH Last administered on at 20:09; Start 03/17/17 at 20:00; Stop 03/17/17 at 20:01; Status DC Pantoprazole Sodium (Protonix Inj) 40 mg ONCE ONCE IV PUSH Last administered on 03/17/17at 20:09; Start 03/17/17 at 20:00; Stop 03/17/17 at 20:01; Status DC Pantoprazole Sodium (Protonix) 40 mg DAILY PO Last administered on 03/20/17at 08: 10; Start 03/18/17 at 09:00 Pravastatin Sodium (Pravachol) 20 mg DAILY PO Last administered on 03/20/17at 08: 11; Start 03/18/17 at 09:00 Sodium Chloride 1,000 ml @ 125 mls/hr Q8H IV Last administered on 03/18/17at 08: 47; Start 03/18/17 at 09:00; Stop 03/18/17 at 16:59; Status DC Sodium Chloride (NS Flush) 2 ml BID IV FLUSH Last administered on 03/20/17at 08: 10; Start 03/18/17 at 09:00 A/P Assessment and Plan A/P -chest pain with history of CAD continue aspirin and BB- cardiology consult appreciated and plan for cardiac cath -however the patient has so far declined. -anemia- iron deficiency consulted GI- since there's been a drop in H/H and patient is on Xarelto continue to monitor H/H. -hypertension; continue BB- will monitor and adjust the regimen as needed. -seizure disorder; continue home meds. Discharge Planning awaiting GI evaluation. patient is considering to proceed with heart cath. Graciela Rosenbaum MD Mar 20, 2017 08:38
--- NOTE | 2017-03-20 10:03 | PD.CONS ---
HPI History of Present Illness This is a 57 year old male with hx CAD on xarelto, ETOH abuse, pancreatitis, AF s/p ablation who presented with chest pain. Onset 3 d ago, left side chest radiating straight across and to neck and left arm. He is still having some pain. He has had episodes of this pain before, it is frequent. He nauseated on admission. Denies abd pain, n/v currently, bloodin stool, black tarry stool, hx GIB, frequent use NSAIDs, gastric ulcer. He is on xarelto, last had at least few days ago, currently held. GI has been consulted for BRIGID. Cardiology has recommended catheterization and pt is currently refusing. Though he denies hx GIB in past he did have episode melena 2015 for which He had an EGD and colonoscopy 08/2015, EGD was relatively unremarkable and colonoscopy found moderate diverticulosis, hyperplastic polyps, hemorrhoids. Admits hx anemia. PFSH Past Medical History CAD AF S/P ablation cardiomyopathy with defibrillator implanted ETOH abuse epilepsy DM Past Surgical History implantation AICD CABG ablations x 2 Coded Allergies: cefazolin (Unverified Allergy, Severe, Hives, 10/28/16) nitroglycerin (Unverified Adverse Reaction, Intermediate, Nausea/Vomiting , 10/28/16) aspirin (Verified Adverse Reaction, Unknown, gi upset, 11/25/16) Family History father of unk ca CHF Social History per EMR hx ETOH abuse, admits 4 x beers daily smokes 1ppd denies illicit drugs Review of Systems Constitutional: DENIES: Weight loss Endocrine: DENIES: Polydipsia Eyes: DENIES: Blurred vision Ears, nose, mouth, throat: DENIES: Hearing loss Respiratory: DENIES: Cough Cardiovascular: COMPLAINS OF: Chest pain Gastrointestinal: DENIES: Abdominal pain, Black stools, Bloody stools, Nausea, Hematemesis Genitourinary: DENIES: Hematuria Musculoskeletal: DENIES: Joint Swelling Integumentary: DENIES: Abnormal pigmentation Hematologic/lymphatic: DENIES: Bruising Immunologic/allergic: DENIES: Eczema Neurologic: DENIES: Abnormal gait Psychiatric: DENIES: Confusion GI Exam Vitals I&O Vital Signs Date Time Temp Pulse Resp B/P (MAP) Pulse Ox O2 Delivery O2 Flow Rate FiO2 03/20/17 07:33 98.0 75 18 105/58 (74) 95 03/20/17 04:13 98.1 80 17 100/57 (71) 96 03/19/17 23:42 98.8 73 17 105/56 (72) 97 03/19/17 23:00 71 03/19/17 20:23 98.4 75 16 99/55 (70) 97 03/19/17 20:00 71 03/19/17 16:38 113/65 (81) 97 03/19/17 14:12 71 16 107/58 (74) 97 03/19/17 14:05 98.6 68 20 111/55 (73) 96 Imaging Last Impressions Chest X-Ray 03/17/171936 Signed Impressions: Service Date/Time: Friday, March 17, 2017 19:48 - CONCLUSION: No acute cardiopulmonary disease. Iban Mcgee MD Laboratory Test 03/19/17 10:50 White Blood Count 5.4 TH/MM3 Red Blood Count 3.32 MIL/MM3 Hemoglobin 8.2 GM/DL Hematocrit 27.0 % Mean Corpuscular Volume 81.1 FL Mean Corpuscular Hemoglobin 24.6 PG Mean Corpuscular Hemoglobin Concent 30.3 % Red Cell Distribution Width 17.9 % Platelet Count 63 TH/MM3 Mean Platelet Volume 9.6 FL Neutrophils (%) (Auto) 61.5 % Lymphocytes (%) (Auto) 26.5 % Monocytes (%) (Auto) 9.3 % Eosinophils (%) (Auto) 2.4 % Basophils (%) (Auto) 0.3 % Neutrophils # (Auto) 3.3 TH/MM3 Lymphocytes # (Auto) 1.4 TH/MM3 Monocytes # (Auto) 0.5 TH/MM3 Eosinophils # (Auto) 0.1 TH/MM3 Basophils # (Auto) 0.0 TH/MM3 CBC Comment AUTO DIFF Differential Comment AUTO DIFF CONFIRMED Platelet Estimate LOW Platelet Morphology Comment ENLARGED Ovalocytes 1+ Physical Examination HEENT: PERRL; normocephalic; atraumatic; no jaundice. CHEST: CTA, left chest TTP CARDIAC: RRR ABDOMEN: Soft, nondistended, nontender; no hepatosplenomegaly; bowel sounds are present in all four quadrants. EXTREMITIES: No clubbing, cyanosis, or edema. SKIN: Normal; no rash; no jaundice. HEALTH INFORMATION SPECIALIST: No focal deficits; alert and oriented times three. Assessment and Plan Plan ASSESSMENT - anemia - hgb 9.2 on arrival and has decreased. iron deficient. 9.2 is also decrease from hgb 11/2016. microcytic, hypochromic. hx melena, had EGD and colonoscopy 08/2015 EGD was unremarkable and colonoscopy revealed hyperplastic polyps, diverticulosis, hemorrhoids. was on xarelto, this is being held. pt is hesitant to pursue endoscopic w/u and his feelings on having procedures done are inconsistent. - chest pain - cardiology following, has recommended cardiac cath which pt is refusing currently. PLAN - PIYUSH - continue protonix - would need cardiac clearance for endoscopic procedures - EGD colonoscopy as outpt unless cardiac clearance and pt agrees to do inpt - monitor labs - transfuse as needed - notify GI of active bleeding this d/w Dr Chirinos and this note is written on his behalf Bernie Jacome Mar 20, 2017 10:03
[2017-03-20 10:50] LABS: AUTOMATED NEUTROPHIL # 3.5 TH/MM3 (1.8-7.7); BASOPHIL % 0.4 % (0.0-2.0); EOSINOPHIL # 0.1 TH/MM3 (0-0.4); EOSINOPHIL % 2.5 % (0.0-4.0); HEMATOCRIT 27.5 % (39.0-51.0); HEMOGLOBIN 8.5 GM/DL (13.0-17.0); LYMPH % 21.6 % (9.0-44.0); LYMPHOCYTE # 1.2 TH/MM3 (1.0-4.8); MEAN CELL VOLUME 80.4 FL (80.0-100.0); MEAN CORPUSCULAR HEMOGLOBIN 24.8 PG (27.0-34.0); MEAN CORPUSCULAR HGB CONC 30.9 % (32.0-36.0); MEAN PLATELET VOLUME 9.3 FL (7.0-11.0); MONO % 10.1 % (0.0-8.0); MONOCYTE # 0.5 TH/MM3 (0-0.9); NEUT % 65.4 % (16.0-70.0); PLATELET COUNT 64 TH/MM3 (150-450); RED BLOOD COUNT 3.42 MIL/MM3 (4.50-5.90); RED CELL DISTRIBUTION WIDTH 17.6 % (11.6-17.2); WHITE BLOOD COUNT 5.4 TH/MM3 (4.0-11.0)
[2017-03-21] VITALS (9 sets, daily range): BP systolic 95–115; BP diastolic 40–68; PULSE 68–78; RESP 18–20; TEMP 98.1–98.8; O2SAT 60–97
[2017-03-21] MEDS: NITROGLYCERIN 2% OINT 1 GM PACKET TOPICAL SCH ×4 (01:13→17:24)
[2017-03-21] MEDS: MORPHINE SULFATE 2 MG/ML INJ IV PUSH PRN ×5 (02:40→23:38)
[2017-03-21] MEDS: INSULIN ASPART SUPPLEMENTAL SCALE SQ SCH ×4 (08:00→21:00)
--- NOTE | 2017-03-21 08:10 | HHI.PR ---
Subjective Remarks in no acute distress. has on and off chest pain. no other new complaints. awaiting cardiac cath. Objective Vitals Vital Signs Date Time Temp Pulse Resp B/P (MAP) Pulse Ox O2 Delivery O2 Flow Rate FiO2 03/21/17 05:01 98.1 77 18 95/50 (65) 93 03/21/17 03:54 69 03/21/17 02:45 22 03/21/17 00:32 71 03/20/17 23:58 98.3 73 20 107/58 (74) 95 03/20/17 21:29 97 03/20/17 21:01 71 03/20/17 20:09 98.3 79 20 124/63 (83) 96 03/20/17 17:31 70 03/20/17 16:12 98.1 68 18 108/59 (75) 99 03/20/17 13:02 110/65 (80) 03/20/17 11:58 98.1 70 18 92/56 (68) 96 I/O 03/20/17 03/20/17 03/20/17 03/21/17 03/21/17 03/21/17 07:00 15:00 23:00 07:00 15:00 23:00 Output Total 400 ml 450 ml Balance -400 ml -450 ml Output Urine Total 400 ml 450 ml Result Diagram: 03/20/17 1032 03/17/171939 Imaging Last Impressions Chest X-Ray 03/17/171936 Signed Impressions: Service Date/Time: Friday, March 17, 2017 19:48 - CONCLUSION: No acute cardiopulmonary disease. Iban Mcgee MD Objective Remarks GENERAL: This is a well-nourished, well-developed patient, in no apparent distress. CARDIOVASCULAR: Regular rate and regular rhythm without murmurs, gallops, or rubs. RESPIRATORY: Clear to auscultation. Breath sounds equal bilaterally. No wheezes , rales, or rhonchi. GASTROINTESTINAL: Abdomen soft, non-tender, nondistended. Normal, active bowel sounds MUSCULOSKELETAL: Extremities without clubbing, cyanosis, or edema. NEURO: Alert & Oriented x4 to person, place, time, situation. Moves all ext x4 Medications and IVs Inpatient Medications Albuterol/ Ipratropium (Duoneb Neb) 1 ampule STAT ONCE INH Last administered on 1/4/18at 08:32; Start 03/18/17 at 08:15; Stop 03/18/17 at 08:18; Status DC Ascorbic Acid (Vitamin C) 250 mg BID PO Last administered on 03/20/17at 21:48; Start 03/20/17 at 09:00 Aspirin (Aspirin) 325 mg DAILY PO Last administered on 03/20/17at 08:10; Start at 09:00 Dextrose (D50w (Vial) Inj) 50 ml UNSCH PRN IV PUSH HYPOGLYCEMIA-SEE COMMENTS; Start 03/18/17 at 08:30 Diphenhydramine HCl (Benadryl Liq) 15 mg ONCE ONCE PO Last administered on 03/17/17at 23:54; Start 03/17/17 at 23:45; Stop 03/17/17 at 23:46; Status DC Ferrous Sulfate (Ferrous Sulfate) 325 mg BID PO Last administered on 03/20/17at 21:47; Start 03/20/17 at 09:00 Gabapentin (Neurontin) 100 mg TID PO Last administered on 03/20/17at 17:00; Start 03/18/17 at 09:00 Glucagon (Glucagon Inj) 1 mg UNSCH PRN OTHER HYPOGLYCEMIA-SEE COMMENTS; Start 03/18/17 at 08:30 Insulin Aspart (NovoLOG SUPPLEMENTAL SCALE) 1 ACHS SLIDING SCALE SQ Last administered on 03/18/17at 22:14; Start 03/18/17 at 12:00 Ketorolac Tromethamine (Toradol Inj) 30 mg ONCE ONCE IV PUSH Last administered on 03/17/17at 21:43; Start 03/17/17 at 21:45; Stop 03/17/17 at 21:46; Status DC Levetriacetam (Keppra) 1,000 mg BID PO Last administered on 03/20/17at 21:48; Start 03/18/17 at 09:00 Metoprolol Succinate (Toprol Xl) 50 mg DAILY PO Last administered on 03/20/17at 08:10; Start 03/18/17 at 09:00 Morphine Sulfate (Morphine Inj) 4 mg Q4H PRN IV PUSH PAIN SCALE 6 TO 10 Last administered on 03/21/17at 02:40; Start 03/18/17 at 08:30 Nitroglycerin (Nitroglycerin 2% Oint) 0.5 inch Q6HR TOPICAL Last administered on 03/21/17 06:22; Start 03/18/17 at 12:00 Ondansetron HCl (Zofran Inj) 4 mg ONCE ONCE IV PUSH Last administered on 20:09; Start 03/17/17 at 20:00; Stop 03/17/17 at 20:01; Status DC Pantoprazole Sodium (Protonix Inj) 40 mg ONCE ONCE IV PUSH Last administered on 03/17/17 20:09; Start 03/17/17 at 20:00; Stop 03/17/17 at 20:01; Status DC Pantoprazole Sodium (Protonix) 40 mg DAILY PO Last administered on 03/20/17 08: 10; Start 03/18/17 at 09:00 Pravastatin Sodium (Pravachol) 20 mg DAILY PO Last administered on 03/20/17 08: 11; Start 03/18/17 at 09:00 Sodium Chloride 1,000 ml @ 125 mls/hr Q8H IV Last administered on 03/18/17at 08: 47; Start 03/18/17 at 09:00; Stop 03/18/17 at 16:59; Status DC Sodium Chloride (NS Flush) 2 ml BID IV FLUSH Last administered on 03/20/17at 21: 47; Start 03/18/17 at 09:00 A/P Assessment and Plan A/P -chest pain with history of CAD continue aspirin and BB- cardiology consult appreciated and plan for cardiac cath the patient initially declined but now agreeable. previously d/w and plan for cardiac cath on Wednesday. -anemia- iron deficiency GI consult appreciated; awaiting cardiac work-up/ clearance prior to further GI work-up. started on ferrous sulfate. continue to monitor H/H. -hypertension; continue BB- will monitor and adjust the regimen as needed. -seizure disorder; continue home meds. Discharge Planning awaiting cardiac cath. Graciela Rosenbaum MD Mar 21, 2017 08:10
[2017-03-21] MEDS: PRAVASTATIN SOD 20 MG TAB PO SCH (08:44)
[2017-03-21] MEDS: levETIRAcetam 500 MG TAB PO SCH ×2 (08:45→22:42)
[2017-03-21] MEDS: GABAPENTIN 100 MG CAP PO SCH ×3 (08:45→17:24)
[2017-03-21] MEDS: PANTOPRAZOLE SOD 40 MG DELAYED RELEASE TAB PO SCH (08:45)
[2017-03-21] MEDS: ASPIRIN 325 MG TAB PO SCH (08:45)
[2017-03-21] MEDS: FERROUS SULFATE 325 MG (65 MG ELEMENTAL IRON) TAB PO SCH ×2 (08:45→22:42)
[2017-03-21] MEDS: METOPROLOL SUCCINATE 50 MG EXTENDED RELEASE TAB PO SCH (08:45)
[2017-03-21] MEDS: SODIUM CHLORIDE 0.9% FLUSH 10 ML FLUSH IV FLUSH SCH ×2 (12:35→22:42)
[2017-03-21] MEDS: ASCORBIC ACID 500 MG TAB PO SCH ×2 (12:35→22:42)
[2017-03-21] MEDS ORDERED: SODIUM CHLOR 0.9% 1000 ML INJ 1,000 ML IV ONE (23:00)
[2017-03-22] VITALS (7 sets, daily range): BP systolic 91–130; BP diastolic 52–67; PULSE 69–91; RESP 16–18; TEMP 98–99; O2SAT 93–98
[2017-03-22] MEDS: NITROGLYCERIN 2% OINT 1 GM PACKET TOPICAL SCH ×4 (00:56→18:00)
[2017-03-22 06:56] LABS: HEMATOCRIT 27.2 % (39.0-51.0); HEMOGLOBIN 8.3 GM/DL (13.0-17.0)
--- NOTE | 2017-03-22 07:47 | HHI.PR ---
Subjective Remarks in no acute distress. clinically no change with on and off chest pain. d/w the RN. Objective Vitals Vital Signs Date Time Temp Pulse Resp B/P (MAP) Pulse Ox O2 Delivery O2 Flow Rate FiO2 03/22/17 05:39 98.1 70 18 109/62 (78) 95 03/22/17 00:00 98.7 73 18 108/58 (75) 93 03/21/17 23:45 21 03/21/17 16:17 115/68 (84) 03/21/17 15:00 69 03/21/17 14:23 72 18 101/55 (70) 97 03/21/17 13:02 98.8 76 20 100/60 (73) 96 03/21/17 08:45 98.6 78 20 95/40 (58) 60 03/21/17 08:00 68 I/O 03/21/17 03/21/17 03/21/17 03/22/17 03/22/17 03/22/17 07:00 15:00 23:00 07:00 15:00 23:00 Output Total 450 ml 350 ml Balance -450 ml -350 ml Output Urine Total 450 ml 350 ml Result Diagram: 03/22/17 0512 Imaging Last Impressions Chest X-Ray 03/17/171936 Signed Impressions: Service Date/Time: Friday, March 17, 2017 19:48 - CONCLUSION: No acute cardiopulmonary disease. Iban Mcgee MD Objective Remarks GENERAL: This is a well-nourished, well-developed patient, in no apparent distress. CARDIOVASCULAR: Regular rate and regular rhythm without murmurs, gallops, or rubs. RESPIRATORY: Clear to auscultation. Breath sounds equal bilaterally. No wheezes , rales, or rhonchi. GASTROINTESTINAL: Abdomen soft, non-tender, nondistended. Normal, active bowel sounds MUSCULOSKELETAL: Extremities without clubbing, cyanosis, or edema. NEURO: Alert & Oriented x4 to person, place, time, situation. Moves all ext x4 Medications and IVs Inpatient Medications Albuterol/ Ipratropium (Duoneb Neb) 1 ampule STAT ONCE INH Last administered on 03/18/17at 08:32; Start 03/18/17 at 08:15; Stop 03/18/17 at 08:18; Status DC Ascorbic Acid (Vitamin C) 250 mg BID PO Last administered on 03/21/17 22:42; Start 03/20/17 at 09:00 Aspirin (Aspirin) 325 mg DAILY PO Last administered on 03/21/17at 08:45; Start at 09:00 Dextrose (D50w (Vial) Inj) 50 ml UNSCH PRN IV PUSH HYPOGLYCEMIA-SEE COMMENTS; Start 03/18/17 at 08:30 Diphenhydramine HCl (Benadryl Liq) 15 mg ONCE ONCE PO Last administered on 03/17/17at 23:54; Start 03/17/17 at 23:45; Stop 03/17/17 at 23:46; Status DC Ferrous Sulfate (Ferrous Sulfate) 325 mg BID PO Last administered on 03/21/17 22:42; Start 03/20/17 at 09:00 Gabapentin (Neurontin) 100 mg TID PO Last administered on 03/21/17at 17:24; Start 03/18/17 at 09:00 Glucagon (Glucagon Inj) 1 mg UNSCH PRN OTHER HYPOGLYCEMIA-SEE COMMENTS; Start 03/18/17 at 08:30 Insulin Aspart (NovoLOG SUPPLEMENTAL SCALE) 1 ACHS SLIDING SCALE SQ Last administered on 03/18/17 22:14; Start 03/18/17 at 12:00 Ketorolac Tromethamine (Toradol Inj) 30 mg ONCE ONCE IV PUSH Last administered on 03/17/17at 21:43; Start 03/17/17 at 21:45; Stop 03/17/17 at 21:46; Status DC Levetriacetam (Keppra) 1,000 mg BID PO Last administered on 03/21/17at 22:42; Start 03/18/17 at 09:00 Metoprolol Succinate (Toprol Xl) 50 mg DAILY PO Last administered on 03/21/17 08:45; Start 03/18/17 at 09:00 Morphine Sulfate (Morphine Inj) 4 mg Q4H PRN IV PUSH PAIN SCALE 6 TO 10 Last administered on 03/21/17at 23:38; Start 03/18/17 at 08:30 Nitroglycerin (Nitroglycerin 2% Oint) 0.5 inch Q6HR TOPICAL Last administered on 03/22/17at 06:40; Start 03/18/17 at 12:00 Ondansetron HCl (Zofran Inj) 4 mg ONCE ONCE IV PUSH Last administered on 20:09; Start 03/17/17 at 20:00; Stop 03/17/17 at 20:01; Status DC Pantoprazole Sodium (Protonix Inj) 40 mg ONCE ONCE IV PUSH Last administered on 03/17/17at 20:09; Start 03/17/17 at 20:00; Stop 03/17/17 at 20:01; Status DC Pantoprazole Sodium (Protonix) 40 mg DAILY PO Last administered on 03/21/17at 08: 45; Start 03/18/17 at 09:00 Pravastatin Sodium (Pravachol) 20 mg DAILY PO Last administered on 03/21/17at 08: 44; Start 03/18/17 at 09:00 Sodium Chloride 1,000 ml @ 100 mls/hr Q10H ONCE IV Last administered on 23:36; Start 03/21/17 at 23:00; Stop 03/22/17 at 08:59 Sodium Chloride (NS Flush) 2 ml BID IV FLUSH Last administered on 03/21/17at 22: 42; Start 03/18/17 at 09:00 A/P Assessment and Plan A/P -chest pain with history of CAD continue aspirin and BB- cardiology consult appreciated and plan for cardiac cath the patient initially declined but now agreeable. previously d/w and plan for cardiac cath today. -anemia- iron deficiency GI consult appreciated; awaiting cardiac work-up/ clearance prior to further GI work-up. started on ferrous sulfate. H/H fairly stable- continue to monitor H/H. -hypertension; continue BB- will monitor and adjust the regimen as needed. -seizure disorder; continue home meds. Discharge Planning awaiting cardiac cath. Graciela Rosenbaum MD Mar 22, 2017 07:47
[2017-03-22] MEDS: SODIUM CHLORIDE 0.9% FLUSH 10 ML FLUSH IV FLUSH SCH ×2 (09:00→20:30)
[2017-03-22] MEDS: MORPHINE SULFATE 2 MG/ML INJ IV PUSH PRN ×3 (09:19→21:26)
[2017-03-22] MEDS: levETIRAcetam 500 MG TAB PO SCH ×2 (09:28→20:30)
[2017-03-22] MEDS: FERROUS SULFATE 325 MG (65 MG ELEMENTAL IRON) TAB PO SCH ×2 (09:28→20:30)
[2017-03-22] MEDS: PANTOPRAZOLE SOD 40 MG DELAYED RELEASE TAB PO SCH (09:28)
[2017-03-22] MEDS: ASCORBIC ACID 500 MG TAB PO SCH ×2 (09:29→20:30)
[2017-03-22] MEDS: GABAPENTIN 100 MG CAP PO SCH ×3 (09:29→18:09)
[2017-03-22] MEDS: PRAVASTATIN SOD 20 MG TAB PO SCH (09:29)
[2017-03-22] MEDS: ASPIRIN 325 MG TAB PO SCH (09:30)
[2017-03-22] MEDS: METOPROLOL SUCCINATE 50 MG EXTENDED RELEASE TAB PO SCH (09:30)
[2017-03-22] MEDS: INSULIN ASPART SUPPLEMENTAL SCALE SQ SCH ×3 (12:00→21:24)
--- NOTE | 2017-03-22 14:18 | HHI.GIFU ---
Subjective Remarks Pt is resting in bed. He is very angry and yelling that he has not eaten in four days. Denies nausea, vomiting, diarrhea. Does reports left sided abdominal pain. (Deja Corral) Objective Vitals I&O Vital Signs Date Time Temp Pulse Resp B/P (MAP) Pulse Ox O2 Delivery O2 Flow Rate FiO2 03/22/17 12:42 98.0 69 16 91/52 (65) 95 03/22/17 09:04 98.1 91 18 95/53 (67) 94 03/22/17 05:39 98.1 70 18 109/62 (78) 95 03/22/17 00:00 98.7 73 18 108/58 (75) 93 03/21/17 23:45 21 03/21/17 16:17 115/68 (84) 03/21/17 15:00 69 03/21/17 14:23 72 18 101/55 (70) 97 I/O 03/21/17 03/21/17 03/21/17 03/22/17 03/22/17 03/22/17 07:00 15:00 23:00 07:00 15:00 23:00 Output Total 450 ml 350 ml Balance -450 ml -350 ml Output Urine Total 450 ml 350 ml Laboratory Laboratory Tests Test 03/22/17 05:12 Hemoglobin 8.3 Hematocrit 27.2 Imaging Last Impressions Chest X-Ray 03/17/171936 Signed Impressions: Service Date/Time: Friday, March 17, 2017 19:48 - CONCLUSION: No acute cardiopulmonary disease. Iban Mcgee MD Physical Exam HEENT: Normocephalic; atraumatic CHEST: Even/unlabored CARDIAC: RRR ABDOMEN: Round, soft, nontender, bowel sounds active EXTREMITIES: No clubbing, cyanosis, or edema. SKIN: Normal; no rash; no jaundice. VICE PRESIDENT INVESTOR RELATIONS: No focal deficits; alert and oriented times three. (Deja Corral) Assessment and Plan Plan ASSESSMENT - Anemia - Normocytic, hypochromic. Iron-19 TIBC-433 % sat-4.4 Ferritin-14. EGD and colonoscopy 08/2015 EGD was unremarkable and colonoscopy revealed hyperplastic polyps, diverticulosis, hemorrhoids. Pt awaiting cardiac clearance before we can pursue endoscopic procedures. Pt initially refused cardiac cath, now agreeable. According to chart, planned for cardiac cath today. However, according to RN they may have to do cath tomorrow. Of note, pt was on Xarelto, currently on hold. - Chest pain - cardiology following PLAN - Continue Iron and Vit C - Continue Protonix - Monitor H/H - Transfuse as needed - Notify GI of any active bleeding - EGD/colonoscopy after cardiac clearance - Supportive care - Further recommendations to follow This patient has been seen and examined by myself and Dr. Ash and this note is written on her behalf (Deja Corral) Physician Comments seen, examined agree with above eating dinner cardiac cath scheduled for am (Brooke Ash MD) Deja Corral Mar 22, 2017 14:18 Brooke Ash MD Mar 22, 2017 18:37
[2017-03-22] MEDS ORDERED: SODIUM CHLOR 0.9% 1000 ML INJ 1,000 ML IV SCH (16:00)
[2017-03-22] MEDS ORDERED: ASPIRIN 325 MG TAB PO SCH (16:00)
[2017-03-22] MEDS ORDERED: DIAZEPAM 5 MG TAB PO SCH (16:00)
[2017-03-22] MEDS ORDERED: diphenhydrAMINE HCL 25 MG CAP PO SCH (16:15)
[2017-03-22 20:08] LABS: BICARBONATE 25.1 MEQ/L (21.0-32.0); CALCIUM 8.4 MG/DL (8.5-10.1); CREATININE 1.19 MG/DL (0.60-1.30)
[2017-03-23] VITALS (20 sets, daily range): BP systolic 96–114; BP diastolic 57–79; PULSE 64–79; RESP 16–20; TEMP 98.2–98.9; O2SAT 95–98
[2017-03-23] MEDS: MORPHINE SULFATE 2 MG/ML INJ IV PUSH PRN ×4 (01:03→21:09)
[2017-03-23] MEDS: NITROGLYCERIN 2% OINT 1 GM PACKET TOPICAL SCH ×4 (05:37→17:45)
[2017-03-23 07:03] LABS: AUTOMATED NEUTROPHIL # 3.4 TH/MM3 (1.8-7.7); BASOPHIL % 0.6 % (0.0-2.0); EOSINOPHIL # 0.2 TH/MM3 (0-0.4); EOSINOPHIL % 4.2 % (0.0-4.0); HEMATOCRIT 26.9 % (39.0-51.0); HEMOGLOBIN 8.4 GM/DL (13.0-17.0); LYMPH % 24.9 % (9.0-44.0); LYMPHOCYTE # 1.5 TH/MM3 (1.0-4.8); MEAN CELL VOLUME 81.5 FL (80.0-100.0); MEAN CORPUSCULAR HEMOGLOBIN 25.4 PG (27.0-34.0); MEAN CORPUSCULAR HGB CONC 31.2 % (32.0-36.0); MEAN PLATELET VOLUME 10.1 FL (7.0-11.0); MONO % 12.1 % (0.0-8.0); MONOCYTE # 0.7 TH/MM3 (0-0.9); NEUT % 58.2 % (16.0-70.0); PLATELET COUNT 73 TH/MM3 (150-450); RED CELL DISTRIBUTION WIDTH 17.5 % (11.6-17.2); WHITE BLOOD COUNT 5.8 TH/MM3 (4.0-11.0)
[2017-03-23] MEDS ORDERED: HEPARIN-NS/PF INJ 1,000 ML ONE (07:33)
[2017-03-23] MEDS ORDERED: VERAPAMIL HCL 5 MG/2 ML VIAL ONE (07:34)
[2017-03-23] MEDS ORDERED: HEPARIN SODIUM - IV 10,000 UNITS/10 ML VIAL ONE (07:34)
[2017-03-23] MEDS ORDERED: MIDAZOLAM HCL 2 MG/2 ML VIAL ONE (07:34)
[2017-03-23] MEDS: INSULIN ASPART SUPPLEMENTAL SCALE SQ SCH ×4 (08:00→21:00)
[2017-03-23 08:30] LABS: BANDS 3 % (0-6); BASOPHILS 1 % (0-2); LYMPHOCYTES 17 % (9-44); MONOCYTES 6 % (0-8); MYELOCYTES 2 % (0-0); NEUTROPHIL # MANUAL DIFF 4.3 TH/MM3 (1.8-7.7); POLYS (SEG NEUTROPHILS) 69 % (16-70)
[2017-03-23 08:31] LABS: OVALOCYTES 1+ (NORMAL); POLYCHROMASIA 2.2 % (0.0-1.9)
[2017-03-23] MEDS ORDERED: SODIUM CHLOR 0.9% 1000 ML INJ 1,000 ML IV SCH (08:44)
[2017-03-23] MEDS ORDERED: MISC INFORMATION XX ONE (08:45)
[2017-03-23] MEDS: PRAVASTATIN SOD 20 MG TAB PO SCH (09:00)
[2017-03-23] MEDS: FERROUS SULFATE 325 MG (65 MG ELEMENTAL IRON) TAB PO SCH ×2 (09:00→21:08)
[2017-03-23] MEDS: PANTOPRAZOLE SOD 40 MG DELAYED RELEASE TAB PO SCH (09:00)
[2017-03-23] MEDS: ASCORBIC ACID 500 MG TAB PO SCH ×2 (09:00→21:08)
[2017-03-23] MEDS: levETIRAcetam 500 MG TAB PO SCH ×2 (09:00→21:08)
[2017-03-23] MEDS: ASPIRIN 325 MG TAB PO SCH (09:00)
[2017-03-23] MEDS: GABAPENTIN 100 MG CAP PO SCH ×4 (09:00→17:45)
[2017-03-23] MEDS: METOPROLOL SUCCINATE 50 MG EXTENDED RELEASE TAB PO SCH (09:00)
[2017-03-23] MEDS ORDERED: NITROGLYCERIN-D5W 50 MG/250 ML 250 ML ONE (09:01)
--- NOTE | 2017-03-23 09:04 | MA ---
cc: JAKUB ALDRICH M.D. DATE 03/23/2017 PROCEDURE PERFORMED 1. Left heart catheterization. 2. Left ventriculography. 3. Coronary angiography. DESCRIPTION OF PROCEDURE The patient was brought to the cardiac laborer construction or leak gang in a fasting state. He was sedated. The right wrist was prepped and draped in sterile fashion. Using 1% lidocaine for local anesthesia a Terumo Slender sheath was inserted in the right radial artery without difficulty. A cocktail was administered with 200 mcg of nitroglycerin, 2.5 mg of verapamil and 2500 units heparin. Next, coronary angiography was performed. I used a [place] catheter for imaging of the left coronary artery. There was marked pressure damping and a severe left main ostial stenosis. Right coronary angiography was completed using a right 5 Jammie catheter. An angled pigtail catheter was then used to measure left ventricular pressure followed by left ventriculography and then a pullback. Dr. Ramírez was consulted and has visited the laborer construction or leak gang. There were no complications. The sheath was removed with a Terumo band placed. FINDINGS HEMODYNAMICS Left ventricular pressure is 94/4 with an end-diastolic pressure elevated at 19. Aortic pressure is 97/57 with a mean of 74. Note, during insertion of a 5 [place] catheter to the left main there was severe pressure damping. LEFT VENTRICULOGRAPHY Left ventriculography shows severely impaired LV function. Estimated ejection fraction is 30%. There is anterolateral and apical akinesis. There is 3+ mitral regurgitation. There is calcification noted in the pericardium. CORONARY ANGIOGRAPHY The left main coronary artery demonstrates 85% ostial stenosis. There is a very proximal LAD stent which appears stenotic, estimated stenosis 60-70%. The remainder of the LAD is a large caliber vessel suitable for grafting. The circumflex artery is dominant giving off a large posterior ascending artery branch and appears fairly normal with only mild irregularities. The right coronary artery is nondominant with no significant stenosis. CONCLUSIONS 1. Elevated left ventricular end-diastolic pressure. 2. Severely impaired LV function. 3. 3+ mitral regurgitation. 4. Critical left main disease. RECOMMENDATIONS CT surgery is consulted. This patient will be extremely high risk. He is anemic. He is thrombocytopenic. He has a history of alcohol and tobacco abuse. Now has severely impaired LV function with severe mitral regurgitation and on top of that severe left main disease. He will also be a redo. In addition there is calcification of the pericardium. This is going to be a very difficult case for cardiothoracic surgery to manage MD ROBERT Sharp/RADHA /8:30 AM /8:40 AM
[2017-03-23] MEDS ORDERED: BACITRACIN OINT 0.9 GM PKT TOP ONE (10:00)
[2017-03-23] MEDS: SODIUM CHLORIDE 0.9% FLUSH 10 ML FLUSH IV FLUSH SCH ×2 (11:10→21:08)
[2017-03-23] MEDS ORDERED: NITROGLYCERIN/DEXTROSE 5% 250 ML for chest pain IV PRN (12:45)
--- NOTE | 2017-03-23 13:22 | PD.CAR.PN ---
CVT Progress Note Subjective/Hospital Course: pt seen and evaluated, full consult to follow sts data discussed with pt RISK SCORES About the STS Risk Calculator Procedure: MV Replacement + CAB Risk of Mortality: 12.503% Morbidity or Mortality: 46.111% Long Length of Stay: 22.703% Short Length of Stay: 8.687% Permanent Stroke: 1.218% Prolonged Ventilation: 36.415% DSW Infection: 0.871% Renal Failure: 15.468% Reoperation: 16.24% Objective: Vital Signs Date Time Temp Pulse Resp B/P (MAP) Pulse Ox O2 Delivery O2 Flow Rate FiO2 03/23/17 12:38 111/59 (76) 03/23/17 12:00 76 03/23/17 11:00 66 03/23/17 11:00 69 18 114/79 (91) 97 03/23/17 09:01 64 113/71 03/23/17 08:50 97 Room Air 03/23/17 04:42 79 03/23/17 04:41 98.8 65 18 100/61 (74) 95 03/23/17 00:54 98.9 70 18 96/57 (70) 96 03/23/17 00:00 70 03/22/17 22:00 69 03/22/17 21:30 99.0 73 18 106/59 (75) 96 03/22/17 17:16 20 03/22/17 16:13 98.0 81 18 130/67 (88) 98 Labs: Laboratory Tests Test 03/23/17 06:29 03/23/17 12:50 White Blood Count 5.8 TH/MM3 (4.0-11.0) Red Blood Count 3.30 MIL/MM3 (4.50-5.90) Hemoglobin 8.4 GM/DL (13.0-17.0) Hematocrit 26.9 % (39.0-51.0) Mean Corpuscular Volume 81.5 FL (80.0-100.0) Mean Corpuscular Hemoglobin 25.4 PG (27.0-34.0) Mean Corpuscular Hemoglobin Concent 31.2 % (32.0-36.0) Red Cell Distribution Width 17.5 % (11.6-17.2) Platelet Count 73 TH/MM3 (150-450) Mean Platelet Volume 10.1 FL (7.0-11.0) Neutrophils (%) (Auto) 58.2 % (16.0-70.0) Lymphocytes (%) (Auto) 24.9 % (9.0-44.0) Monocytes (%) (Auto) 12.1 % (0.0-8.0) Eosinophils (%) (Auto) 4.2 % (0.0-4.0) Basophils (%) (Auto) 0.6 % (0.0-2.0) Neutrophils # (Auto) 3.4 TH/MM3 (1.8-7.7) Lymphocytes # (Auto) 1.5 TH/MM3 (1.0-4.8) Monocytes # (Auto) 0.7 TH/MM3 (0-0.9) Eosinophils # (Auto) 0.2 TH/MM3 (0-0.4) Basophils # (Auto) 0.0 TH/MM3 (0-0.2) CBC Comment AUTO DIFF Differential Total Cells Counted 100 Neutrophils % (Manual) 69 % (16-70) Band Neutrophils % 3 % (0-6) Lymphocytes % 17 % (9-44) Monocytes % 6 % (0-8) Eosinophils % 2 % (0-4) Basophils % 1 % (0-2) Neutrophils # (Manual) 4.3 TH/MM3 (1.8-7.7) Myelocytes 2 % (0-0) Differential Comment FINAL DIFF MANUAL Platelet Estimate LOW (NORMAL) Platelet Morphology Comment NORMAL (NORMAL) Polychromasia 2.2 % (0.0-1.9) Ovalocytes 1+ (NORMAL) Result Diagram: 03/23/17 0629 03/22/17 192 (1) Cardiomyopathy (2) Tobacco abuse (3) Thrombocytopenia (4) Systolic CHF, chronic (5) ETOH abuse (6) Chest pain Edith Whitlock Mar 23, 2017 13:22
[2017-03-23 13:41] LABS: PROTHROMBIN TIME - PATIENT 10.6 SEC (9.8-11.6)
--- NOTE | 2017-03-23 14:08 | HHI.PR ---
Subjective Remarks in no distress. has on and off chest pain. had cardiac cath earlier today. Objective Vitals Vital Signs Date Time Temp Pulse Resp B/P (MAP) Pulse Ox O2 Delivery O2 Flow Rate FiO2 03/23/17 12:38 111/59 (76) 03/23/17 12:00 76 03/23/17 11:00 66 03/23/17 11:00 69 18 114/79 (91) 97 03/23/17 09:01 64 113/71 03/23/17 08:50 97 Room Air 03/23/17 04:42 79 03/23/17 04:41 98.8 65 18 100/61 (74) 95 03/23/17 00:54 98.9 70 18 96/57 (70) 96 03/23/17 00:00 70 03/22/17 22:00 69 03/22/17 21:30 99.0 73 18 106/59 (75) 96 03/22/17 17:16 20 03/22/17 16:13 98.0 81 18 130/67 (88) 98 I/O 03/22/17 03/22/17 03/22/17 03/23/17 03/23/17 03/23/17 07:00 15:00 23:00 07:00 15:00 23:00 Output Total 350 ml Balance -350 ml Output Urine Total 350 ml Result Diagram: 03/23/17 0629 03/22/171921 Imaging Last Impressions Chest X-Ray 03/17/171936 Signed Impressions: Service Date/Time: Friday, March 17, 2017 19:48 - CONCLUSION: No acute cardiopulmonary disease. Iban Mcgee MD Objective Remarks GENERAL: This is a well-nourished, well-developed patient, in no apparent distress. CARDIOVASCULAR: Regular rate and regular rhythm without murmurs, gallops, or rubs. RESPIRATORY: Clear to auscultation. Breath sounds equal bilaterally. No wheezes , rales, or rhonchi. GASTROINTESTINAL: Abdomen soft, non-tender, nondistended. Normal, active bowel sounds MUSCULOSKELETAL: Extremities without clubbing, cyanosis, or edema. NEURO: Alert & Oriented x4 to person, place, time, situation. Moves all ext x4 Procedures cardiac cath. Medications and IVs Inpatient Medications Albuterol/ Ipratropium (Duoneb Neb) 1 ampule STAT ONCE INH Last administered on 03/18/17at 08:32; Start 03/18/17 at 08:15; Stop 03/18/17 at 08:18; Status DC Ascorbic Acid (Vitamin C) 250 mg BID PO Last administered on 03/23/17at 09:00; Start 03/20/17 at 09:00 Aspirin (Aspirin) 325 mg BOX TRUCK OWNER OPERATOR PO Last administered on 03/23/17at 07:16; Start 03/22/17 at 16:00; Stop 03/26/17 at 15:59 Bacitracin (Bacitracin Oint Packet) 0.9 gm ONCE ONCE TOP ; Start 03/23/17 at 10: 00; Stop 03/23/17 at 10:01; Status DC Dextrose (D50w (Vial) Inj) 50 ml UNSCH PRN IV PUSH HYPOGLYCEMIA-SEE COMMENTS; Start 03/18/17 at 08:30 Diazepam (Valium) 5 mg BOX TRUCK OWNER OPERATOR PO ; Start 03/22/17 at 16:00; Stop 03/26/17 at 15 :59 Diphenhydramine HCl (Benadryl Liq) 15 mg ONCE ONCE PO Last administered on 03/17/17at 23:54; Start 03/17/17 at 23:45; Stop 03/17/17 at 23:46; Status DC Diphenhydramine HCl (Benadryl) 25 mg BOX TRUCK OWNER OPERATOR PO Last administered on 03/23/17at 07:17; Start 03/22/17 at 16:15; Stop 03/26/17 at 16:14 Ferrous Sulfate (Ferrous Sulfate) 325 mg BID PO Last administered on 03/23/17at 09:00; Start 03/20/17 at 09:00 Gabapentin (Neurontin) 100 mg TID PO Last administered on 03/23/17at 13:53; Start 03/18/17 at 09:00 Glucagon (Glucagon Inj) 1 mg UNSCH PRN OTHER HYPOGLYCEMIA-SEE COMMENTS; Start 03/18/17 at 08:30 Insulin Aspart (NovoLOG SUPPLEMENTAL SCALE) 1 ACHS SLIDING SCALE SQ Last administered on 03/22/17at 21:24; Start 03/18/17 at 12:00 Ketorolac Tromethamine (Toradol Inj) 30 mg ONCE ONCE IV PUSH Last administered on 03/17/17at 21:43; Start 03/17/17 at 21:45; Stop 03/17/17 at 21:46; Status DC Levetriacetam (Keppra) 1,000 mg BID PO Last administered on 03/23/17at 09:00; Start 03/18/17 at 09:00 Metoprolol Succinate (Toprol Xl) 50 mg DAILY PO Last administered on 03/23/17at 09:00; Start 03/18/17 at 09:00 Miscellaneous Information 1 ONCE ONCE XX ; Start 03/23/17 at 08:45; Stop at 08:47; Status DC Morphine Sulfate (Morphine Inj) 4 mg Q4H PRN IV PUSH PAIN SCALE 6 TO 10 Last administered on 03/23/17at 11:13; Start 03/18/17 at 08:30 Nitroglycerin (Nitroglycerin 2% Oint) 0.5 inch Q6HR TOPICAL Last administered on 03/22/17at 06:40; Start 03/18/17 at 12:00 Nitroglycerin/ Dextrose 250 ml @ 1.5 mls/hr TITRATE PRN IV Chest pain; Start 03/23/17 at 12:45 Ondansetron HCl (Zofran Inj) 4 mg ONCE ONCE IV PUSH Last administered on at 20:09; Start 03/17/17 at 20:00; Stop 03/17/17 at 20:01; Status DC Pantoprazole Sodium (Protonix Inj) 40 mg ONCE ONCE IV PUSH Last administered on 03/17/17at 20:09; Start 03/17/17 at 20:00; Stop 03/17/17 at 20:01; Status DC Pantoprazole Sodium (Protonix) 40 mg DAILY PO Last administered on 03/23/17at 09: 00; Start 03/18/17 at 09:00 Pravastatin Sodium (Pravachol) 20 mg DAILY PO Last administered on 03/23/17at 09: 00; Start 03/18/17 at 09:00 Sodium Chloride 1,000 ml @ 100 mls/hr Q10H IV ; Start 03/23/17 at 08:44; Stop at 16:43 Sodium Chloride (NS Flush) 2 ml BID IV FLUSH Last administered on 03/23/17at 11: 10; Start 03/18/17 at 09:00 A/P Assessment and Plan A/P -CAD with left main disease on cardiac cath. continue aspirin , BB and statin- CT surgery consulted. cardiology following. -anemia- iron deficiency GI consult appreciated; awaiting cardiac work-up/ clearance prior to further GI work-up. started on ferrous sulfate. H/H fairly stable- continue to monitor H/H. -hypertension; continue BB- will monitor and adjust the regimen as needed. -seizure disorder; continue home meds. Graciela Rosenbaum MD Mar 23, 2017 14:07
--- NOTE | 2017-03-23 14:46 | HHI.GIFU ---
Subjective Remarks Pt OOB to chair, in NAD. back from cath procedure. No bleeding. No GI complaints. does not want to pursue endoscopy at this time. (Bernie Jacome) Objective Vitals I&O Vital Signs Date Time Temp Pulse Resp B/P (MAP) Pulse Ox O2 Delivery O2 Flow Rate FiO2 03/23/17 14:00 70 03/23/17 13:00 76 03/23/17 12:38 111/59 (76) 03/23/17 12:00 76 03/23/17 11:00 66 03/23/17 11:00 69 18 114/79 (91) 97 03/23/17 09:01 64 113/71 03/23/17 08:50 97 Room Air 03/23/17 04:42 79 03/23/17 04:41 98.8 65 18 100/61 (74) 95 03/23/17 00:54 98.9 70 18 96/57 (70) 96 03/23/17 00:00 70 03/22/17 22:00 69 03/22/17 21:30 99.0 73 18 106/59 (75) 96 03/22/17 17:16 20 03/22/17 16:13 98.0 81 18 130/67 (88) 98 I/O 03/22/17 03/22/17 03/22/17 03/23/17 03/23/17 03/23/17 07:00 15:00 23:00 07:00 15:00 23:00 Output Total 350 ml Balance -350 ml Output Urine Total 350 ml Laboratory Laboratory Tests Test 03/22/17 19:22 03/23/17 06:29 03/23/17 12:50 Blood Urea Nitrogen 12 Creatinine 1.19 Random Glucose 144 Calcium Level 8.4 Sodium Level 139 Potassium Level 3.6 Chloride Level 108 Carbon Dioxide Level 25.1 Anion Gap 6 Estimat Glomerular Filtration Rate 63 White Blood Count 5.8 Red Blood Count 3.30 Hemoglobin 8.4 Hematocrit 26.9 Mean Corpuscular Volume 81.5 Mean Corpuscular Hemoglobin 25.4 Mean Corpuscular Hemoglobin Concent 31.2 Red Cell Distribution Width 17.5 Platelet Count 73 Mean Platelet Volume 10.1 Neutrophils (%) (Auto) 58.2 Lymphocytes (%) (Auto) 24.9 Monocytes (%) (Auto) 12.1 Eosinophils (%) (Auto) 4.2 Basophils (%) (Auto) 0.6 Neutrophils # (Auto) 3.4 Lymphocytes # (Auto) 1.5 Monocytes # (Auto) 0.7 Eosinophils # (Auto) 0.2 Basophils # (Auto) 0.0 CBC Comment AUTO DIFF Differential Total Cells Counted 100 Neutrophils % (Manual) 69 Band Neutrophils % 3 Lymphocytes % 17 Monocytes % 6 Eosinophils % 2 Basophils % 1 Neutrophils # (Manual) 4.3 Myelocytes 2 Differential Comment FINAL DIFF MANUAL Platelet Estimate LOW Platelet Morphology Comment NORMAL Polychromasia 2.2 Ovalocytes 1+ Prothrombin Time 10.6 Prothromb Time International Ratio 1.0 Activated Partial Thromboplast Time 23.1 Physical Exam HEENT: Normocephalic; atraumatic CHEST: Even/unlabored CARDIAC: RRR ABDOMEN: Round, soft, nontender, bowel sounds active EXTREMITIES: No clubbing, cyanosis, or edema. SKIN: Normal; no rash; no jaundice. CATERING ASSISTANT: No focal deficits; alert and oriented times three. (Bernie Jacome) Assessment and Plan Plan ASSESSMENT - Anemia - Normocytic, hypochromic. Iron-19 TIBC-433 % sat-4.4 Ferritin-14. EGD and colonoscopy 08/2015 EGD was unremarkable and colonoscopy revealed hyperplastic polyps, diverticulosis, hemorrhoids. Pt awaiting cardiac clearance before we can pursue endoscopic procedures. s/p cardiac cath, per cardiology CT surgery now consulted, who has consulted hematology. pt does not want procedures at this time. - Chest pain - cardiology following PLAN - hold on procedures for now - Continue Iron and Vit C - Continue Protonix - Monitor H/H - Transfuse as needed - Notify GI of any active bleeding - Supportive care This patient has been seen and examined by myself and Dr. Ash and this note is written on her behalf (Bernie Jacome) Physician Comments seen, examined agree with above patient had extensive go work-up in the past for anemia ,egd/colonoscopy most recently 2015, bone marrow biopsy 2014 as per egd report -no varices or portal gastropathy noted.has a history of elevated lfts secondary etoh liver disease patient had multiple images of the liver over the years-only significant steatosis documented , most likely secondary etoh abuse we will repeat ct abdomen/pelvis ok for surgery from gi point of view, close monitoring of liver enzymes, cbc , ammonia recommended (Brooke Ash MD) Bernie Jacome Mar 23, 2017 14:46 Brooke Ash MD Mar 23, 2017 18:36
--- NOTE | 2017-03-23 15:56 | MB ---
cc: JENI RAMÍREZ DATE OF CONSULTATION 03/23/2017 HISTORY OF PRESENT ILLNESS This is a 57-year-old male who has had multiple admissions for chest pain and seizure disorder. He has a longstanding cardiac history. He presented to the emergency room with chest pain in his left chest radiating to his left arm and left neck with only intermittent relief. The patient continues to smoke a half pack per day. He is on his medication. He has been taking his statin and also Xarelto for history of apical thrombus. His last dose of Xarelto was Wednesday evening. Date of admission was 03/17/2017. The patient has a significant cardiac history with coronary artery bypass graft x3 in 1997 preceded by an [place]. Also his coronary artery bypass was a vein graft to the diagonal marginal and TAPIA to the LAD. His last cardiac cath was in December 2007. The TAPIA and all vein grafts were occluded. He had a proximal stent with about 30% in-stent restenosis. He had a stress test back in November which showed a large fixed apical defect with an EF of 40%. He has a history of ventricular tachycardia and cardiomyopathy with class III [place] Heart failure where he had a defibrillator initially placed in 1999. The ICD was replaced in 2015 secondary to a bacteremia. He sees Dr. Beaulieu on a yearly basis and also sees Dr. James. The patient came in, the troponins were negative, but because of his longstanding history and coronary disease he underwent cardiac cath today by Dr. Jacob Coats which showed a left main disease of 85% ostial stenosis. The proximal LAD stent had an estimated stenosis of 60-70%. The circumflex artery was dominant giving off a large PDA and appears fairly normal. The RCA was nondominant with no significant stenosis. He also was found to have significant 3+ mitral regurgitation. Echocardiogram showed ejection fraction of 35%, akinesis and scarring of the distal anterior septal and apical myocardium. The left atrium was moderately dilated. There was moderate tricuspid regurgitation and moderate to severe mitral valve regurgitation. Mitral valve peak velocity was 520 centimeters squared, peak gradient 108 mmHg. We were consulted to evaluate for possible redo coronary artery bypass grafting and evaluation for mitral valve replacement. PAST MEDICAL HISTORY 1. 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 2. Tobacco abuse. 3. Diabetes mellitus on oral medications. 4. History of pancreatitis. 5. Atrial fibrillation. 6. Cardiomyopathy, [place] Heart Association Class III. 7. History of thrombocytopenia since 2007 with full work-up in the past; has seen Dr. Arce and Dr. Casarez here in the hospital. 8. History of ventricular tachycardia. PAST SURGICAL HISTORY 1. Coronary artery bypass graft x3 in 1997. 2. Cardiac cath with stent placed to the LAD' last cath was in 2007. 3. AICD, which was replaced in August 2015. ALLERGIES 1. ASPIRIN. 2. ANCEF. 3. NITROGLYCERIN. MEDICATIONS Home meds include: 1. Albuterol inhaler. 2. Xarelto. 3. Simvastatin. 4. Metoprolol. 5. Gabapentin. 6. Keppra. 7. Glipizide. FAMILY HISTORY Father at 54 from multiple myeloma. Mother at 67 due to CHF. SOCIAL HISTORY The patient continues to smoke about a half pack per day, has been smoking for 30 years. He states he quit drinking alcohol for about 20 years and started back up and has been drinking up to 4-5 beers per day. No illicit drugs. REVIEW OF SYSTEMS GENERAL: No night sweats, fever, heat or cold intolerance. SKIN: No psoriasis, itching or hives. HEENT: No blurred vision or hearing loss. RESPIRATORY: No cough or shortness of breath. CARDIOVASCULAR: As above in the HPI. GASTROINTESTINAL: No diarrhea or vomiting. No black tarry stools. GENITOURINARY: No burning, frequency, urgency. 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 Positive for seizure disorder. ENDOCRINE: Positive for diabetes mellitus. PHYSICAL EXAMINATION VITAL SIGNS: Blood pressure 110/60, heart rate 76, afebrile. Room air sat 97%. GENERAL: Patient is awake, alert, in no acute distress. HEENT: Head is normocephalic, atraumatic. He does have some implants on his teeth which is fairly broken off. The gums look pink. There is no evidence of any abscess or bleeding of the gums. NECK: Supple. No JVD. HEART: Heart sounds S1, S2, regular rate and rhythm. There is a grade 2/6 systolic murmur best heard at the left sternal border. LUNGS: Diminished in the bases with a faint expiratory wheeze. ABDOMEN: Soft, nontender. No masses or organomegaly. EXTREMITIES: Palpable left dorsalis pedis. I am unable to get a palpable posterior tibial and dorsalis pedis on the right; Doppler only. Fairly good capillary refill. LABORATORY Hemoglobin 8.4, hematocrit 26, white cell count 5.8, platelet count 73. He was admitted with a platelet count of 85. Sodium 139, potassium 3.6, BUN 12, creatinine 1.19. Hemoglobin A1c pending. Folate 15. Vitamin-B12 492. Liver panel is pending. INR 1.0. Fibrinogen is pending. IMAGING Chest x-ray: No acute process. IMPRESSION 1. This is a 57-year-old male with history of coronary artery bypass graft x3, now status post heart catheterization secondary to unstable angina with critical left main disease of 85% ostial stenosis. The LAD stent appears stenotic, estimated 60-70% stenosed. 3+ mitral regurgitation. Echocardiogram showing severe mitral regurgitation. 2. Diabetes mellitus. 3. Seizure disorder, probably related to chronic ETOH abuse. 4. Tobacco abuse 5. History of atrial fibrillation. 6. History of ventricular tachycardia. 7. Oxford heart failure class III. 8. Status post ICD placement. 9. Chronic thrombocytopenia, probably related to his ETOH use. PLAN/RECOMMENDATIONS The coronary films will be evaluated by Dr. Jeni Ramírez. At this time recommend clearance by hematology and also by gastroenterology. The patient is very high risk for redo surgery. His risk of mortality is actually 12.50 to include mitral valve replacement and coronary artery bypass grafting. Also per the notes from Dr. Jacob Coats the patient also has some additional calcification of the pericardium and a very difficult case to be evaluated. Further planning once we receive his further studies including pulmonary function testing, carotid ultrasound and clearance by the above consultants. Dictated by: JASE Beckett MD DARRELL Kaminski/RADHA /1:13 PM /3:30 PM
[2017-03-23 16:26] LABS: ALBUMIN 3.1 GM/DL (3.4-5.0); ALT (GPT) 22 U/L (12-78); AST (GOT) 23 U/L (15-37); DIRECT BILIRUBIN ADULT 0.1 MG/DL (0.0-0.2)
[2017-03-23 16:28] LABS: ALKALINE PHOSPHATASE 211 U/L (45-117); INDIRECT BILIRUBIN 0.2 MG/DL (0.0-0.8); TOTAL BILIRUBIN ADULT 0.3 MG/DL (0.2-1.0); TOTAL PROTEIN 7.8 GM/DL (6.4-8.2)
[2017-03-23 17:03] LABS: HEMOGLOBIN A1C 6.3 % (4.3-6.0)
[2017-03-23] MEDS ORDERED: DIATRIZOATE MEGLUM/DIATRIZOATE SOD 9 ML CUP PO ONE (18:45)
--- NOTE | 2017-03-23 20:40 | MB ---
cc: JENI RAMÍREZ,ENDY Stock M.D. DATE OF CONSULTATION 03/23/2017 New patient consultative summary DATE OF 1960 DATE OF SERVICE March 23, [address] Jeni Ramírez CHIEF COMPLAINT [address]. Gamez requested consultation for Mr. Robertson regarding thrombocytopenia. HISTORY OF PRESENT ILLNESS Mr. Robertson is a 57-year-old man well-known patient from previous consultation back in 2014 for thrombocytopenia. He has a history of coronary artery disease status post coronary artery bypass grafting, atrial fibrillation status post ablation, seizure disorder, chronic liver disease, dyslipidemia, congestive heart failure, hypertension. His thrombocytopenia has been extensively evaluated. Heparin-induced thrombocytopenia has been checked several times. There is one HIV antibody that was borderline but serotonin release assay was negative. He had a bone marrow biopsy evaluation May 24, 2014 that showed a normal cellular marrow with megakaryocytic hyperplasia that suggests peripheral platelet consumption or sequestration. He has had anemia of chronic disease. His BCR-ABL for FISH was negative. Flow cytometry shows no abnormal neoplastic leukocyte population. CT scan most recent from November 23, 2015 showed steatosis of the liver severe from prior. Spleen size is normal. During his hospitalization no specific therapy was given for his platelet counts. Chronic thrombocytopenia tolerated attributed to his seizure medication. The thrombocytopenia is chronic in review of the electronic medical records dating back to 2008. The thrombocytopenia has been progressive. It has consistently been less than 100,000 in 2014. During this admission his platelet count ranged from 63,000-85,000. He has no bleeding episodes. No melena or bright red blood per rectum. He has chronic anemia. His hemoglobin is lower this year as compared to his labs back in November of 2016. He has been on anticoagulant therapy with Xarelto. GI has been consulted to rule out GI loss of iron. His iron studies are consistent with iron deficiency. His MCV is significantly decreased compared to that in 2016. His MCV is closer to 100. The last LDH was from 2008. Mr. Robertson complains of chest pain on the left side which still persists. He has it radiating to the left arm and to the neck. He has some pain in the right lower leg where the graft was harvested. He denies any nausea, vomiting. Denies any seizure events. He has been seizure-free although he does not remember the name of his neurologist. He denies any bleeding complications related to the Xarelto. He admits to continuing to drink recently. He continues to smoke. He has not followed up in hematology clinic since the consultation back in 2014. The rest of his review of systems is negative. He is anxious about the potential for surgery. He is looking to discuss surgical options with the surgeon. PAST MEDICAL HISTORY 1. Coronary artery disease. 2. Congestive heart failure. 3. Fatty liver. 4. Hypercholesterolemia. 5. Seizure disorder. 6. Hypertension. 7. Arrhythmia status post ablation. 8. Left ventricular thrombus. 9. Valvular disease. 10. Iron deficiency anemia chronic from thrombocytopenia. PAST SURGICAL HISTORY 1. ICD placement. 2. Ablation. 3. Coronary artery bypass graft x3. 4. Bone marrow biopsy. FAMILY HISTORY Mother in her 60s with congestive heart failure. Father of liver cancer in his 50s. SOCIAL HISTORY He is an active smoker and drinker. Lives alone. 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 He denies any illicit drug use. PHYSICAL EXAMINATION VITAL SIGNS: Temperature 98.2, heart rate 71, respiratory rate 16, blood pressure 107/61. GENERAL: Mr. Robertson is a well-developed, well-nourished man who looks older than stated age. HEENT: His pupils are round, reactive to light and accommodation. Oropharynx is clear. NECK: Supple. LUNGS: Are clear. CARDIOVASCULAR: Exam reveals rate-controlled rhythm. ABDOMEN: Benign. EXTREMITIES: Lower extremity with trace edema. Well-healed scar from the right leg vein grafting. LABORATORY DATA Labs consistent with iron deficiency hemoglobin of 8.4 from March 23, 2017. Platelet count 73. MCV 81.5, ferritin is 14. BUN of 12, creatinine 1.19. Hemoglobin A1c is 6.3. ASSESSMENT/PLAN Mr. Robertson is a 57-year-old man with multiple medical problems as described above. He was recently evaluated by Dr. Coats. The recent cardiac catheterization showed elevated left ventricular end-diastolic pressure, severely impaired LV function and 3+ mitral regurgitation and critical left main disease. These account for his symptoms at present. He is undergoing evaluation by Dr. Gamez. He is considered high risk for the surgery. Hematology is consulted for the thrombocytopenia. A lengthy discussion with the patient regarding thrombocytopenia. We considered multiple factors as we have in the past. These included seizure medications, his liver disease and continued drinking, the possibility of peripheral destruction. The bone marrow biopsy suggests that. We also considered the bone marrow suppression associated with alcohol use. He also has iron deficiency. We discussed treating reversible cause. I recommend treating him with parenteral iron therapy to correct the iron deficiency and optimize his hemoglobin prior to his surgery. We will monitor closely his response to the platelet count. Typically platelet count is increased in the face of iron deficiency. This may result in decreasing the platelet count. We discussed that he has high-risk disease in light of his thrombocytopenia. After parenteral iron therapy we can try to see if steroids would improve his platelet count. This is empiric trial to see if there is a component of immune mediated destruction. Repeat LDH, haptoglobin, coagulation profile. Priyanka test will be performed to rule out other causes of the thrombocytopenia. Immune thrombocytopenic purpura is a diagnosis of exclusion. Lastly we can try IVIG. I am reluctant to do this in light of known apical thrombus and VTE risks. He may be at baseline thrombocytopenic also in light of his fatty liver disease. Ultrasound of the liver will be performed to rule out liver lesion and to evaluate the spleen size. I expect that the liver would be fatty as it had been from a CT scan in 2016. His questions were answered to his satisfaction. MD KEN Bedolla/CHINYERE /7:37 PM /8:09 PM A[place]LAIDE
[2017-03-23] MEDS ORDERED: CYANOCOBALAMIN 1000 MCG/ML VIAL SQ ONE (22:00)
[2017-03-23] MEDS: ACETAMINOPHEN/HYDROcodone 325 MG/5 MG TAB PO PRN (23:28)
[2017-03-24] VITALS (27 sets, daily range): BP systolic 84–113; BP diastolic 47–77; PULSE 60–88; RESP 16–20; TEMP 98–98.7; O2SAT 95–97
[2017-03-24] MEDS: MORPHINE SULFATE 2 MG/ML INJ IV PUSH PRN ×5 (01:52→21:06)
[2017-03-24] MEDS: NITROGLYCERIN 2% OINT 1 GM PACKET TOPICAL SCH ×4 (06:00→17:51)
[2017-03-24 06:06] LABS: AUTOMATED NEUTROPHIL # 3.4 TH/MM3 (1.8-7.7); BASOPHIL % 0.7 % (0.0-2.0); EOSINOPHIL # 0.3 TH/MM3 (0-0.4); EOSINOPHIL % 4.4 % (0.0-4.0); HEMATOCRIT 27.3 % (39.0-51.0); HEMOGLOBIN 8.5 GM/DL (13.0-17.0); LYMPH % 27.6 % (9.0-44.0); LYMPHOCYTE # 1.7 TH/MM3 (1.0-4.8); MEAN CELL VOLUME 81.8 FL (80.0-100.0); MEAN CORPUSCULAR HEMOGLOBIN 25.6 PG (27.0-34.0); MEAN CORPUSCULAR HGB CONC 31.3 % (32.0-36.0); MEAN PLATELET VOLUME 9.8 FL (7.0-11.0); MONO % 11.5 % (0.0-8.0); MONOCYTE # 0.7 TH/MM3 (0-0.9); NEUT % 55.8 % (16.0-70.0); PLATELET COUNT 88 TH/MM3 (150-450); RED BLOOD COUNT 3.33 MIL/MM3 (4.50-5.90); RED CELL DISTRIBUTION WIDTH 18.1 % (11.6-17.2); WHITE BLOOD COUNT 6.1 TH/MM3 (4.0-11.0)
[2017-03-24 06:30] LABS: BICARBONATE 24.5 MEQ/L (21.0-32.0); CALCIUM 8.7 MG/DL (8.5-10.1); CREATININE 1.08 MG/DL (0.60-1.30)
[2017-03-24 06:54] LABS: INTERNATIONAL NORMALIZED RATIO 1.1 RATIO; PROTHROMBIN TIME - PATIENT 10.8 SEC (9.8-11.6)
[2017-03-24] MEDS: INSULIN ASPART SUPPLEMENTAL SCALE SQ SCH ×4 (08:00→21:23)
[2017-03-24] MEDS: ASPIRIN 325 MG TAB PO SCH (08:08)
[2017-03-24] MEDS: METOPROLOL SUCCINATE 50 MG EXTENDED RELEASE TAB PO SCH (08:08)
[2017-03-24] MEDS: ASCORBIC ACID 500 MG TAB PO SCH ×2 (08:09→21:06)
[2017-03-24] MEDS: PRAVASTATIN SOD 20 MG TAB PO SCH (08:15)
--- NOTE | 2017-03-24 08:15 | PD.CARD.PN ---
Subjective Subjective Remarks Low grade chest pain relieved only with pain medication continues Objective Medications Current Medications Medications (Trade) Dose Ordered Sig/Viky Route Start Time Stop Time Status Last Admin (NS Flush) 2 ml UNSCH PRN IV FLUSH 03/17/17 22:15 (NS Flush) 2 ml BID IV FLUSH 03/18/17 09:00 03/23/17 21:08 (Duoneb Neb) 1 ampule Q4HR NEB PRN INH 03/18/17 08:15 (Protonix) 40 mg DAILY PO 03/18/17 09:00 03/23/17 09:00 (Morphine Inj) 4 mg Q4H PRN IV PUSH 03/18/17 08:30 03/24/17 08:07 (Neurontin) 100 mg TID PO 03/18/17 09:00 03/23/17 17:45 (Keppra) 1,000 mg BID PO 03/18/17 09:00 03/23/17 21:08 (Toprol Xl) 50 mg DAILY PO 03/18/17 09:00 03/24/17 08:08 (Pravachol) 20 mg DAILY PO 03/18/17 09:00 03/23/17 09:00 (NovoLOG SUPPLEMENTAL SCALE) 1 ACHS SLIDING SCALE SQ 03/18/17 12:00 03/23/17 17:45 (D50w (Vial) Inj) 50 ml UNSCH PRN IV PUSH 03/18/17 08:30 (Glucagon Inj) 1 mg UNSCH PRN OTHER 03/18/17 08:30 (Aspirin) 325 mg DAILY PO 03/18/17 09:00 03/24/17 08:08 (Nitroglycerin 2% Oint) 0.5 inch Q6HR TOPICAL 03/18/17 12:00 03/22/17 06:40 (Ferrous Sulfate) 325 mg BID PO 03/20/17 09:00 03/23/17 21:08 (Vitamin C) 250 mg BID PO 03/20/17 09:00 03/24/17 08:09 (Aspirin) 325 mg [employer] PO 03/22/17 16:00 03/26/17 15:59 03/23/17 07:16 (Benadryl) 25 mg [employer] PO 03/22/17 16:15 03/26/17 16:14 03/23/17 07:17 (Valium) 5 mg [employer] PO 03/22/17 16:00 03/26/17 15:59 Nitroglycerin/ Dextrose 250 ml @ 1.5 mls/hr TITRATE PRN IV 03/23/17 12:45 (Crapo 5-325 Mg) 1 tab Q6H PRN PO 03/23/17 18:30 03/23/17 23:28 Iron Sucrose 100 mg/Sodium Chloride 105 ml @ 105 mls/hr DAILY IV 03/24/17 22:00 03/26/17 09:59 Vital Signs / I&O Vital Signs Date Time Temp Pulse Resp B/P (MAP) Pulse Ox O2 Delivery O2 Flow Rate FiO2 03/24/17 06:00 60 03/24/17 05:00 64 03/24/17 04:00 66 03/24/17 03:00 62 03/24/17 03:00 98.1 66 16 97/54 (68) 95 03/24/17 02:00 64 03/24/17 01:57 18 03/24/17 01:00 74 03/24/17 00:56 20 03/24/17 00:00 68 03/23/17 23:00 98.2 72 20 107/63 (78) 95 03/23/17 23:00 64 03/23/17 22:15 97 21 03/23/17 22:00 66 03/23/17 21:00 74 03/23/17 20:00 68 03/23/17 19:00 68 03/23/17 19:00 98.3 73 20 106/62 (77) 98 03/23/17 18:40 67 03/23/17 17:25 69 03/23/17 16:02 96/54 03/23/17 16:00 72 03/23/17 15:23 98.2 71 16 107/61 (76) 98 03/23/17 15:00 73 03/23/17 14:00 70 03/23/17 13:00 76 03/23/17 12:38 111/59 (76) 03/23/17 12:00 76 03/23/17 11:00 66 03/23/17 11:00 69 18 114/79 (91) 97 03/23/17 09:01 64 113/71 03/23/17 08:50 97 Room Air I/O 03/23/17 03/23/17 03/23/17 03/24/17 03/24/17 03/24/17 07:00 15:00 23:00 07:00 15:00 23:00 Intake Total 920 ml 360 ml Output Total 400 ml 400 ml Balance 520 ml -40 ml Intake Oral 920 ml 360 ml Output Urine Total 400 ml 400 ml # Bowel Movements 0 Physical Exam Alert Chest few rhonchi CV S2S2 S3 RRR Abd soft Ext no edema, right wrist looks fine/ intact pulse Laboratory Laboratory Tests Test 03/23/17 12:50 03/23/17 15:40 03/23/17 21:07 03/24/17 05:24 Prothrombin Time 10.6 SEC 10.8 SEC Prothromb Time International Ratio 1.0 RATIO 1.1 RATIO Activated Partial Thromboplast Time 23.1 SEC 27.5 SEC Hemoglobin A1c 6.3 % Total Bilirubin 0.3 MG/DL Direct Bilirubin 0.1 MG/DL Indirect Bilirubin 0.2 MG/DL Aspartate Amino Transf (AST/SGOT) 23 U/L Alanine Aminotransferase (ALT/SGPT) 22 U/L Alkaline Phosphatase 211 U/L Total Protein 7.8 GM/DL Albumin 3.1 GM/DL White Blood Count 6.1 TH/MM3 Red Blood Count 3.33 MIL/MM3 Hemoglobin 8.5 GM/DL Hematocrit 27.3 % Mean Corpuscular Volume 81.8 FL Mean Corpuscular Hemoglobin 25.6 PG Mean Corpuscular Hemoglobin Concent 31.3 % Red Cell Distribution Width 18.1 % Platelet Count 88 TH/MM3 Mean Platelet Volume 9.8 FL Neutrophils (%) (Auto) 55.8 % Lymphocytes (%) (Auto) 27.6 % Monocytes (%) (Auto) 11.5 % Eosinophils (%) (Auto) 4.4 % Basophils (%) (Auto) 0.7 % Neutrophils # (Auto) 3.4 TH/MM3 Lymphocytes # (Auto) 1.7 TH/MM3 Monocytes # (Auto) 0.7 TH/MM3 Eosinophils # (Auto) 0.3 TH/MM3 Basophils # (Auto) 0.0 TH/MM3 CBC Comment AUTO DIFF Fibrinogen 612 mg/dL Blood Urea Nitrogen 11 MG/DL Creatinine 1.08 MG/DL Random Glucose 95 MG/DL Calcium Level 8.7 MG/DL Lactate Dehydrogenase 164 U/L Sodium Level 142 MEQ/L Potassium Level 3.6 MEQ/L Chloride Level 109 MEQ/L Carbon Dioxide Level 24.5 MEQ/L Anion Gap 9 MEQ/L Estimat Glomerular Filtration Rate 71 ML/MIN Assessment and Plan Problem List: (1) Cardiomyopathy ICD Codes: I42.9 - Cardiomyopathy Status: Acute (2) Tobacco abuse ICD Codes: Z72.0 - Tobacco use (3) Thrombocytopenia ICD Codes: D69.6 - Thrombocytopenia Status: Acute (4) Systolic CHF, chronic ICD Codes: I50.22 - Chronic systolic congestive heart failure Status: Chronic (5) ETOH abuse ICD Codes: F10.10 - ETOH abuse Status: Chronic (6) Chest pain ICD Codes: R07.9 - Chest pain, unspecified Status: Resolved (7) CAD (coronary artery disease) ICD Codes: I25.10 - Atherosclerotic heart disease of tetlin coronary artery without angina pectoris Assessment and Plan Severe left main disease. CT surgery evaluating for CABG. Very high risk due to redo surgery, poor LV function, pericardial calcification, thrombocytopenia. I will be out of town tomorrow - Dr. Patel available if condition changes. Jacob Coats MD Mar 24, 2017 08:15
[2017-03-24] MEDS: levETIRAcetam 500 MG TAB PO SCH ×2 (08:16→21:06)
[2017-03-24] MEDS: FERROUS SULFATE 325 MG (65 MG ELEMENTAL IRON) TAB PO SCH ×2 (08:16→21:06)
[2017-03-24] MEDS: PANTOPRAZOLE SOD 40 MG DELAYED RELEASE TAB PO SCH (08:16)
[2017-03-24] MEDS: SODIUM CHLORIDE 0.9% FLUSH 10 ML FLUSH IV FLUSH SCH ×2 (08:23→21:06)
[2017-03-24] MEDS ORDERED: POTASSIUM BICARBONATE 25 MEQ EFFERVESCENT TAB PO ONE (09:00)
--- NOTE | 2017-03-24 10:01 | RADRPT ---
EXAM DATE/TIME: 03/24/2017 08:16 [facility] COMPARISON: No previous studies available for comparison. INDICATIONS : Thrombocytopenia. MEDICAL HISTORY : Congestive heart failure. Myocardial infarction. Hypercholesterolemia. Cataracts. Epilepsy. Liver dis ease. Anticoagulant therapy. Afib. Coronary artery disease. Hypertension. COPD. Diabetes. SURGICAL HISTORY : CABG. Coronary artery stent. Abdominal aortic aneurysm repair. Internal defibrillator. Cardiac ablati on. ENCOUNTER: Subsequent ACUITY: 2 days PAIN SCORE: 6/10 LOCATION: Bilateral upper quadrant MEASUREMENTS: LIVER: 14.8 cm length COMMON DUCT: 4 mm RIGHT KIDNEY: 11.2 x 3.8 x 4.5 cm SPLEEN: 14.1 cm length FINDINGS: LIVER: Normal echotexture without focal lesion or ductal dilatation. COMMON DUCT: No intraluminal mass or stone visualized. GALLBLADDER: Contains no stones, demonstrates no wall thickening or pericholecystic fluid. PANCREAS: The visualized portions are within normal limits. RIGHT KIDNEY: No hydronephrosis, stone or mass. SPLEEN: No focal lesion. CONCLUSION: 1. Mild splenomegaly with spleen measuring up to 14.1 cm in length. 2. Otherwise, unremarkable ultrasound examination of the abdomen. Sim Reynoso MD on March 24, 2017 at 9:43 Board Certified Radiologist. This report was verified electronically.
--- NOTE | 2017-03-24 11:30 | PD.CAR.PN ---
CVT Progress Note Subjective/Hospital Course: 57-year-old male who has had multiple admissions for chest pain and seizure disorder. He has a longstanding cardiac history. He presented to the emergency room with chest pain in his left chest radiating to his left arm and left neck with only intermittent relief. The patient continues to smoke a half pack per day and drink alcohol on a regular basis. He has been taking his statin and also Xarelto for history of apical thrombus. His last dose of Xarelto was Thursday 03/16. The patient has a significant cardiac history with coronary artery bypass graft x3 in 1997 preceded by an OR. Also his coronary artery bypass was a vein graft to the diagonal marginal and TAPIA to the LAD. His last cardiac cath was in December 2007. The TAPIA and all vein grafts were occluded. He had a proximal stent with about 30% in-stent restenosis. He had a stress test back in November which showed a large fixed apical defect with an EF of 40%. He has a history of ventricular tachycardia and cardiomyopathy with class III [place] Heart failure where he had a defibrillator initially placed in 1999. The ICD was replaced in 2015 secondary to a bacteremia. He sees Dr. Beaulieu on a yearly basis and also sees Dr. James. On ED admission the troponins were negative, but because of his longstanding history and coronary disease he underwent cardiac cath by Dr. Jacob Coats which showed a left main disease of 85% ostial stenosis. The proximal LAD stent had an estimated stenosis of 60-70%. The circumflex artery was dominant giving off a large PDA and appears fairly normal. The RCA was nondominant with no significant stenosis. He also was found to have significant 3+ mitral regurgitation. Echocardiogram showed ejection fraction of 35%, akinesis and scarring of the distal anterior septal and apical myocardium. The left atrium was moderately dilated. There was moderate tricuspid regurgitation and moderate to severe mitral valve regurgitation. Mitral valve peak velocity was 520 centimeters squared, peak gradient 108 mmHg. We were consulted to evaluate for possible redo coronary artery bypass grafting and evaluation for mitral valve replacement. 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 Coronary artery bypass [place] x[place] [address] Felipe Saunders , Cardiac cath with stent placed to the LAD' last cath was in 2007, AICD , which was replaced in August 2015. 03/24 further CVS workup pending had some mild chest pain last pm , relieved with pain meds Dr Ramírez spoke with Dr Saunders ( regarding possible transfer to [facility] for redo surgery) / await answer if not accepted, then will need to be evaluated for [facility] is a high risk for surgery and has a mortality risk of 12 Objective: GENERAL: SKIN: Warm and dry. HEAD: Normocephalic. EYES: No scleral icterus. No injection or drainage. NECK: Supple, trachea midline. No JVD or lymphadenopathy. CARDIOVASCULAR: Regular rate and rhythm without 1/6 sm no gallops, or rubs. RESPIRATORY: Breath sounds equal bilaterally. No accessory muscle use. GASTROINTESTINAL: Abdomen soft, non-tender, nondistended. MUSCULOSKELETAL: No cyanosis, or edema. BACK: Nontender without obvious deformity. No CVA tenderness. Vital Signs Date Time Temp Pulse Resp B/P (MAP) Pulse Ox O2 Delivery O2 Flow Rate FiO2 03/24/17 10:00 60 03/24/17 09:00 68 03/24/17 08:24 16 03/24/17 08:20 98.0 66 16 99/58 (72) 97 03/24/17 08:00 62 03/24/17 07:48 104/77 (86) 03/24/17 07:40 98.1 63 16 84/47 (59) 95 03/24/17 07:05 69 03/24/17 06:00 60 03/24/17 05:00 64 03/24/17 04:00 66 03/24/17 03:00 62 03/24/17 03:00 98.1 66 16 97/54 (68) 95 03/24/17 02:00 64 03/24/17 01:00 74 03/24/17 00:56 20 03/24/17 00:00 68 03/23/17 23:00 98.2 72 20 107/63 (78) 95 03/23/17 23:00 64 03/23/17 22:15 97 21 03/23/17 22:00 66 03/23/17 21:00 74 03/23/17 20:00 68 03/23/17 19:00 68 03/23/17 19:00 98.3 73 20 106/62 (77) 98 03/23/17 18:40 67 03/23/17 17:25 69 03/23/17 16:02 96/54 03/23/17 16:00 72 03/23/17 15:23 98.2 71 16 107/61 (76) 98 03/23/17 15:00 73 03/23/17 14:00 70 03/23/17 13:00 76 03/23/17 12:38 111/59 (76) 03/23/17 12:00 76 Labs: Laboratory Tests Test 03/24/17 05:24 White Blood Count 6.1 TH/MM3 (4.0-11.0) Red Blood Count 3.33 MIL/MM3 (4.50-5.90) Hemoglobin 8.5 GM/DL (13.0-17.0) Hematocrit 27.3 % (39.0-51.0) Mean Corpuscular Volume 81.8 FL (80.0-100.0) Mean Corpuscular Hemoglobin 25.6 PG (27.0-34.0) Mean Corpuscular Hemoglobin Concent 31.3 % (32.0-36.0) Red Cell Distribution Width 18.1 % (11.6-17.2) Platelet Count 88 TH/MM3 (150-450) Mean Platelet Volume 9.8 FL (7.0-11.0) Neutrophils (%) (Auto) 55.8 % (16.0-70.0) Lymphocytes (%) (Auto) 27.6 % (9.0-44.0) Monocytes (%) (Auto) 11.5 % (0.0-8.0) Eosinophils (%) (Auto) 4.4 % (0.0-4.0) Basophils (%) (Auto) 0.7 % (0.0-2.0) Neutrophils # (Auto) 3.4 TH/MM3 (1.8-7.7) Lymphocytes # (Auto) 1.7 TH/MM3 (1.0-4.8) Monocytes # (Auto) 0.7 TH/MM3 (0-0.9) Eosinophils # (Auto) 0.3 TH/MM3 (0-0.4) Basophils # (Auto) 0.0 TH/MM3 (0-0.2) CBC Comment AUTO DIFF Differential Comment AUTO DIFF CONFIRMED Platelet Estimate LOW (NORMAL) Platelet Morphology Comment NORMAL (NORMAL) Prothrombin Time 10.8 SEC (9.8-11.6) Prothromb Time International Ratio 1.1 RATIO Activated Partial Thromboplast Time 27.5 SEC (24.3-30.1) Fibrinogen 612 mg/dL (227-377) Blood Urea Nitrogen 11 MG/DL (7-18) Creatinine 1.08 MG/DL (0.60-1.30) Random Glucose 95 MG/DL (74-106) Calcium Level 8.7 MG/DL (8.5-10.1) Lactate Dehydrogenase 164 U/L (87-241) Sodium Level 142 MEQ/L (136-145) Potassium Level 3.6 MEQ/L (3.5-5.1) Chloride Level 109 MEQ/L (98-107) Carbon Dioxide Level 24.5 MEQ/L (21.0-32.0) Anion Gap 9 MEQ/L (5-15) Estimat Glomerular Filtration Rate 71 ML/MIN (>89) Result Diagram: 03/24/1752303/24/17523 (1) Cardiomyopathy (2) Tobacco abuse (3) Thrombocytopenia (4) Systolic CHF, chronic (5) ETOH abuse (6) Chest pain (7) CAD (coronary artery disease) Edith Whitlock Mar 24, 2017 11:30
[2017-03-24] MEDS: ACETAMINOPHEN/HYDROcodone 325 MG/5 MG TAB PO PRN (11:38)
[2017-03-24] MEDS: GABAPENTIN 100 MG CAP PO SCH ×2 (13:00→17:53)
--- NOTE | 2017-03-24 13:43 | PD.ONC.PN ---
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 prior to making a decision about surgery No bleeding Objective Data Date Time Temp Pulse Resp B/P (MAP) Pulse Ox O2 Delivery O2 Flow Rate FiO2 03/24/17 13:00 62 03/24/17 12:54 16 03/24/17 12:25 16 03/24/17 12:00 68 03/24/17 11:00 98.1 72 20 90/50 (63) 96 03/24/17 11:00 69 03/24/17 10:00 60 03/24/17 09:00 68 03/24/17 08:20 98.0 66 16 99/58 (72) 97 03/24/17 08:00 62 03/24/17 07:48 104/77 (86) 03/24/17 07:40 98.1 63 16 84/47 (59) 95 03/24/17 07:05 69 03/24/17 06:00 60 03/24/17 05:00 64 03/24/17 04:00 66 03/24/17 03:00 62 03/24/17 03:00 98.1 66 16 97/54 (68) 95 03/24/17 02:00 64 03/24/17 01:00 74 03/24/17 00:00 68 03/23/17 23:00 98.2 72 20 107/63 (78) 95 03/23/17 23:00 64 03/23/17 22:15 97 21 03/23/17 22:00 66 03/23/17 21:00 74 03/23/17 20:00 68 03/23/17 19:00 68 03/23/17 19:00 98.3 73 20 106/62 (77) 98 03/23/17 18:40 67 03/23/17 17:25 69 03/23/17 16:02 96/54 03/23/17 16:00 72 03/23/17 15:23 98.2 71 16 107/61 (76) 98 03/23/17 15:00 73 03/23/17 14:00 70 03/24/17 03/24/17 03/24/17 07:00 15:00 23:00 Intake Total 360 ml Output Total 400 ml Balance -40 ml Result Diagram: 03/24/17 0524 03/24/17 0524 Laboratory Results Laboratory Tests Test 03/23/17 15:40 03/23/17 21:07 03/24/17 05:24 Hemoglobin A1c 6.3 % Total Bilirubin 0.3 MG/DL Direct Bilirubin 0.1 MG/DL Indirect Bilirubin 0.2 MG/DL Aspartate Amino Transf (AST/SGOT) 23 U/L Alanine Aminotransferase (ALT/SGPT) 22 U/L Alkaline Phosphatase 211 U/L Total Protein 7.8 GM/DL Albumin 3.1 GM/DL White Blood Count 6.1 TH/MM3 Red Blood Count 3.33 MIL/MM3 Hemoglobin 8.5 GM/DL Hematocrit 27.3 % Mean Corpuscular Volume 81.8 FL Mean Corpuscular Hemoglobin 25.6 PG Mean Corpuscular Hemoglobin Concent 31.3 % Red Cell Distribution Width 18.1 % Platelet Count 88 TH/MM3 Mean Platelet Volume 9.8 FL Neutrophils (%) (Auto) 55.8 % Lymphocytes (%) (Auto) 27.6 % Monocytes (%) (Auto) 11.5 % Eosinophils (%) (Auto) 4.4 % Basophils (%) (Auto) 0.7 % Neutrophils # (Auto) 3.4 TH/MM3 Lymphocytes # (Auto) 1.7 TH/MM3 Monocytes # (Auto) 0.7 TH/MM3 Eosinophils # (Auto) 0.3 TH/MM3 Basophils # (Auto) 0.0 TH/MM3 CBC Comment AUTO DIFF Differential Comment AUTO DIFF CONFIRMED Platelet Estimate LOW Platelet Morphology Comment NORMAL Prothrombin Time 10.8 SEC Prothromb Time International Ratio 1.1 RATIO Activated Partial Thromboplast Time 27.5 SEC Fibrinogen 612 mg/dL Blood Urea Nitrogen 11 MG/DL Creatinine 1.08 MG/DL Random Glucose 95 MG/DL Calcium Level 8.7 MG/DL Lactate Dehydrogenase 164 U/L Sodium Level 142 MEQ/L Potassium Level 3.6 MEQ/L Chloride Level 109 MEQ/L Carbon Dioxide Level 24.5 MEQ/L Anion Gap 9 MEQ/L Estimat Glomerular Filtration Rate 71 ML/MIN Imaging Studies Last 24 hours Impressions Liver Ultrasound 03/24/17 0000 Signed Impressions: Service Date/Time: Friday, March 24, 2017 08:16 - CONCLUSION: 1. Mild splenomegaly with spleen measuring up to 14.1 cm in length. 2. Otherwise, unremarkable ultrasound examination of the abdomen. Sim Reynoso MD Administered Medications Medications (Trade) Dose Ordered Sig/Viky Route PRN Reason Start Time Stop Time Status Last Admin Dose Admin Sodium Chloride (NS Flush) 2 ml BID IV FLUSH 03/18/17 09:00 03/24/17 08:23 Pantoprazole Sodium (Protonix) 40 mg DAILY PO 03/18/17 09:00 03/24/17 08:16 Morphine Sulfate (Morphine Inj) 4 mg Q4H PRN IV PUSH PAIN SCALE 6 TO 10 03/18/17 08:30 03/24/17 12:31 Gabapentin (Neurontin) 100 mg TID PO 03/18/17 09:00 03/24/17 13:00 Levetriacetam (Keppra) 1,000 mg BID PO 03/18/17 09:00 03/24/17 08:16 Metoprolol Succinate (Toprol Xl) 50 mg DAILY PO 03/18/17 09:00 03/24/17 08:08 Pravastatin Sodium (Pravachol) 20 mg DAILY PO 03/18/17 09:00 03/24/17 08:15 Insulin Aspart (NovoLOG SUPPLEMENTAL SCALE) 1 ACHS SLIDING SCALE SQ 03/18/17 12:00 03/23/17 17:45 Aspirin (Aspirin) 325 mg DAILY PO 03/18/17 09:00 03/24/17 08:08 Nitroglycerin (Nitroglycerin 2% Oint) 0.5 inch Q6HR TOPICAL 03/18/17 12:00 03/22/17 06:40 Ferrous Sulfate (Ferrous Sulfate) 325 mg BID PO 03/20/17 09:00 03/24/17 08:16 Ascorbic Acid (Vitamin C) 250 mg BID PO 03/20/17 09:00 03/24/17 08:09 Aspirin (Aspirin) 325 mg BILL RECAPITULATION CLERK PO 03/22/17 16:00 03/26/17 15:59 03/23/17 07:16 Diphenhydramine HCl (Benadryl) 25 mg BILL RECAPITULATION CLERK PO 03/22/17 16:15 03/26/17 16:14 03/23/17 07:17 Acetaminophen/ Hydrocodone Bitart ([place] 5-325 Mg) 1 tab Q6H PRN PO PAIN SCALE 1-10 03/23/17 18:30 03/24/17 11:38 Objective Remarks GENERAL: Older male resting in bed in no acute distress SKIN: Warm and dry. [place] HEAD: Normocephalic. EYES: No injection or drainage. NECK: Supple, trachea midline. CARDIOVASCULAR: + S1/S2. Soft systolic murmur noted RESPIRATORY: Clear anteriorly. Breathing unlabored at rest. GASTROINTESTINAL: Abdomen soft, non-tender, nondistended. EXTREMITIES: No cyanosis, or edema. MUSCULOSKELETAL: Adequate muscle tone. NEUROLOGICAL: No obvious focal deficit. Awake, alert, and oriented x3. Assessment/Plan Problem List: (1) Thrombocytopenia ICD Codes: D69.6 - Thrombocytopenia Status: Acute Plan: -- Bone marrow biopsy from May 2014 showed normal cellular marrow -- Iron studies show iron deficiency -- Patient also has persistent alcohol use -- Liver ultrasound shows mild splenomegaly -- No bleeding noted -- Also on antiseizure medication that may be related to thrombocytopenia -- Priyanka negative (2) CAD (coronary artery disease) ICD Codes: I25.10 - Atherosclerotic heart disease of [place] coronary artery without angina pectoris Plan: -- History of CABG -- Recent cardiac catheterization showed elevated left ventricular end- diastolic pressure, severely impaired LV function and 3+ mitral regurgitation and critical left main disease. -- Being followed by CV surgery Assessment 57 y/o male with CAD; hematology consulted for thrombocytopenia Plan 1. Monitor for bleeding 2. Liver ultrasound shows mild splenomegaly which is contributing to thrombocytopenia. Splenomegaly likely due to liver disease. 3. Monitor blood counts 4. IV iron given given in order to optimize hemoglobin prior to surgery Attending Statement The exam, history, and the medical decision-making described in the above note were completed with the assistance of the mid-level provider. I reviewed and agree with the findings presented. I attest that I had a [id number] encounter with the patient on the same day, and personally performed and documented my assessment and findings in the medical record. Pt seen and examined. Discussed his evaluation for surgery w/ Dr. Ramírez. Thrombocytopenia likely due to hypersplenism and fatty liver. Radiographic worsening of fatty liver, now with enlarge spleen. Thrombocytopenia due to decrease thrombopoietin from fatty liver, hypersplenism , bone marrow suppression from ETOH and possible drug effect. Recommend correction of iron deficiency. Pt will need platelet transfusion for support for surgery, as there is no tx to immediately reverse the above. No coagulopathy. No DIC fibrinogen elevated. Siomara Gan Mar 24, 2017 13:43 Patience Arce MD Mar 24, 2017 21:15
--- NOTE | 2017-03-24 18:49 | HHI.PR ---
Subjective Remarks Deferred entry - patient seen at 12:45 Patient c/o chest pain. Denies sob. Objective Vitals Vital Signs Date Time Temp Pulse Resp B/P (MAP) Pulse Ox O2 Delivery O2 Flow Rate FiO2 03/24/17 18:05 75 03/24/17 17:52 18 03/24/17 17:00 66 03/24/17 16:00 88 03/24/17 15:00 98.7 76 20 113/67 (82) 97 03/24/17 15:00 64 03/24/17 14:00 62 03/24/17 13:00 62 03/24/17 12:25 16 03/24/17 12:00 68 03/24/17 11:00 98.1 72 20 90/50 (63) 96 03/24/17 11:00 69 03/24/17 10:00 60 03/24/17 09:00 68 03/24/17 08:20 98.0 66 16 99/58 (72) 97 03/24/17 08:00 62 03/24/17 07:48 104/77 (86) 03/24/17 07:40 98.1 63 16 84/47 (59) 95 03/24/17 07:05 69 03/24/17 06:00 60 03/24/17 05:00 64 03/24/17 04:00 66 03/24/17 03:00 62 03/24/17 03:00 98.1 66 16 97/54 (68) 95 03/24/17 02:00 64 03/24/17 01:00 74 03/24/17 00:00 68 03/23/17 23:00 98.2 72 20 107/63 (78) 95 03/23/17 23:00 64 03/23/17 22:15 97 21 03/23/17 22:00 66 03/23/17 21:00 74 03/23/17 20:00 68 03/23/17 19:00 68 03/23/17 19:00 98.3 73 20 106/62 (77) 98 I/O 03/23/17 03/23/17 03/23/17 03/24/17 03/24/17 03/24/17 07:00 15:00 23:00 07:00 15:00 23:00 Intake Total 920 ml 360 ml 960 ml Output Total 400 ml 400 ml Balance 520 ml -40 ml 960 ml Intake Oral 920 ml 360 ml 960 ml Output Urine Total 400 ml 400 ml # Voids 3 # Bowel Movements 0 0 Result Diagram: 03/24/17 0524 03/24/17 0524 Imaging Last Impressions Liver Ultrasound 03/24/17 0000 Signed Impressions: Service Date/Time: Friday, March 24, 2017 08:16 - CONCLUSION: 1. Mild splenomegaly with spleen measuring up to 14.1 cm in length. 2. Otherwise, unremarkable ultrasound examination of the abdomen. Sim Reynoso MD Chest X-Ray 03/17/17 193 Signed Impressions: Service Date/Time: Friday, March 17, 2017 19:48 - CONCLUSION: No acute cardiopulmonary disease. Iban Mcgee MD Objective Remarks GENERAL: This is a well-nourished, well-developed patient, in mild distress due to chest pain. CARDIOVASCULAR: Regular rate and regular rhythm without murmurs, gallops, or rubs. RESPIRATORY: Clear to auscultation. Breath sounds equal bilaterally. No wheezes , rales, or rhonchi. GASTROINTESTINAL: Abdomen soft, non-tender, nondistended. Normal, active bowel sounds MUSCULOSKELETAL: Extremities without clubbing, cyanosis, or edema. NEURO: Alert & Oriented x4 to person, place, time, situation. Moves all ext x4 Procedures cardiac cath. Medications and IVs Current Medications Medications (Trade) Dose Ordered Sig/Viky Route Start Time Stop Time Status Last Admin (NS Flush) 2 ml UNSCH PRN IV FLUSH 03/17/17 22:15 (NS Flush) 2 ml BID IV FLUSH 03/18/17 09:00 03/24/17 21:06 (Duoneb Neb) 1 ampule Q4HR NEB PRN INH 03/18/17 08:15 (Protonix) 40 mg DAILY PO 03/18/17 09:00 03/24/17 08:16 (Morphine Inj) 4 mg Q4H PRN IV PUSH 03/18/17 08:30 03/24/17 21:06 (Neurontin) 100 mg TID PO 03/18/17 09:00 03/24/17 17:53 (Keppra) 1,000 mg BID PO 03/18/17 09:00 03/24/17 21:06 (Toprol Xl) 50 mg DAILY PO 03/18/17 09:00 03/24/17 08:08 (Pravachol) 20 mg DAILY PO 03/18/17 09:00 03/24/17 08:15 (NovoLOG SUPPLEMENTAL SCALE) 1 ACHS SLIDING SCALE SQ 03/18/17 12:00 03/24/17 21:23 (D50w (Vial) Inj) 50 ml UNSCH PRN IV PUSH 03/18/17 08:30 (Glucagon Inj) 1 mg UNSCH PRN OTHER 03/18/17 08:30 (Aspirin) 325 mg DAILY PO 03/18/17 09:00 03/24/17 08:08 (Nitroglycerin 2% Oint) 0.5 inch Q6HR TOPICAL 03/18/17 12:00 03/22/17 06:40 (Ferrous Sulfate) 325 mg BID PO 03/20/17 09:00 03/24/17 21:06 (Vitamin C) 250 mg BID PO 03/20/17 09:00 03/24/17 21:06 (Aspirin) 325 mg SUPERVISOR ENGINE ASSEMBLY PO 03/22/17 16:00 03/26/17 15:59 03/23/17 07:16 (Benadryl) 25 mg SUPERVISOR ENGINE ASSEMBLY PO 03/22/17 16:15 03/26/17 16:14 03/23/17 07:17 (Valium) 5 mg SUPERVISOR ENGINE ASSEMBLY PO 03/22/17 16:00 03/26/17 15:59 Nitroglycerin/ Dextrose 250 ml @ 1.5 mls/hr TITRATE PRN IV 03/23/17 12:45 ([place] 5-325 Mg) 1 tab Q6H PRN PO 03/23/17 18:30 03/24/17 11:38 Iron Sucrose 100 mg/Sodium Chloride 105 ml @ 105 mls/hr DAILY IV 03/24/17 22:00 03/26/17 09:59 A/P Problem List: (1) CAD (coronary artery disease) ICD Code: I25.10 - Atherosclerotic heart disease of [place] coronary artery without angina pectoris Plan: CAD with left main disease on cardiac cath. continue aspirin , BB and statin- CT surgery consulted. cardiology following. 03/24 had some mild chest pain relieved with pain medications. As per CT surgery Dr Ramírez spoke with Dr Saunders ( regarding possible transfer to [facility] for redo surgery) / await answer if not accepted, then will need to be evaluated for transfer to tertiary [facility], or [facility]. (2) Systolic CHF, chronic ICD Code: I50.22 - Chronic systolic congestive heart failure Status: Chronic Plan: Echocardiogram showed The left ventricular systolic function is moderately reduced with an estimated ejection fraction 35%.. Akinesis and scarring of the distal anteroseptal and apical myocardium.The left atrial size is moderately dilated. There is a pacemaker wire present in the right atrial cavity. [id number] mitral valve regurgitation. Mitral annular calcification is present. There is moderate tricuspid regurgitation. There is estimated mild pulmonary hypertension present (46 mmHg). Congestive heart failure seems stable. (3) Cardiomyopathy ICD Code: I42.9 - Cardiomyopathy Status: Chronic Plan: Echo as above. (4) Anemia ICD Code: D64.9 - Anemia Status: Chronic Plan: GI consult appreciated; awaiting cardiac work-up/ clearance prior to further GI work-up. started on ferrous sulfate. H/H fairly stable- continue to monitor H/H. (5) Hypertension ICD Code: I10 - Essential (primary) hypertension Plan: BP seems stable. Continue current antihypertensive medications. (6) Thrombocytopenia ICD Code: D69.6 - Thrombocytopenia Status: Acute Plan: Hematology consulted. Recommendations appreciated. Likely multifactorial due to anticonvulsant therapy, liver disease and alcohol abuse. Platelets trending up, continue to monitor platelets. Started on IV iron. (7) Tobacco abuse ICD Code: Z72.0 - Tobacco use Plan: Advised smoking cessation. (8) ETOH abuse ICD Code: F10.10 - ETOH abuse Status: Chronic Plan: Advised alcohol abstinence. (9) Hx of CABG ICD Code: Z95.1 - Presence of aortocoronary bypass graft Status: Chronic Plan: As above. Cardiology and CT surgery following. Patient needs redo CABG however high risk. (10) Diabetes mellitus ICD Code: E11.9 - Type 2 diabetes mellitus without complications Plan: Patient with improved hemoglobin A1C 8.3 on 11/13/16, down to 6.3 on this admission. Blood sugars with acceptable control, Glipizide held. Continue SSI with insulin Novolog and continue to monitor accuchecks. (11) Seizure disorder ICD Code: G40.909 - Epilepsy, unspecified, not intractable, without status epilepticus Status: Chronic Plan: No seizure activity observed. Continue home anticonvulsant therapy. Assessment and Plan GI prophylaxis: PPI. DVT prophylaxis: SCD's, no chemoprophylaxis given anemia and thrombocytopenia. Discharge Planning Continue to monitor in cardiac floor. Awaiting CT surgery recommendations. Possibly will need transfer to another hospital. Problem Qualifiers (1) CAD (coronary artery disease): Qualified Codes: I25.10 - Atherosclerotic heart disease of [place] coronary artery without angina pectoris (2) Cardiomyopathy: Qualified Codes: I25.5 - Ischemic cardiomyopathy (3) Anemia: Qualified Codes: D50.0 - Iron deficiency anemia secondary to blood loss ( chronic) (4) Hypertension: Qualified Codes: I10 - Essential (primary) hypertension (5) Diabetes mellitus: Qualified Codes: E11.8 - Type 2 diabetes mellitus with unspecified complications Bear Landry MD Mar 24, 2017 18:49
[2017-03-25] VITALS (23 sets, daily range): BP systolic 85–112; BP diastolic 51–68; PULSE 58–83; RESP 16–18; TEMP 97.2–98.8; O2SAT 95–97
[2017-03-25] MEDS: MORPHINE SULFATE 2 MG/ML INJ IV PUSH PRN ×6 (01:10→23:23)
[2017-03-25] MEDS: NITROGLYCERIN 2% OINT 1 GM PACKET TOPICAL SCH ×5 (05:18→21:26)
[2017-03-25] MEDS: INSULIN ASPART SUPPLEMENTAL SCALE SQ SCH ×4 (08:00→21:00)
[2017-03-25] MEDS: ASPIRIN 325 MG TAB PO SCH (08:55)
[2017-03-25] MEDS: FERROUS SULFATE 325 MG (65 MG ELEMENTAL IRON) TAB PO SCH ×2 (08:55→21:06)
[2017-03-25] MEDS: GABAPENTIN 100 MG CAP PO SCH ×3 (08:56→18:52)
[2017-03-25] MEDS: ASCORBIC ACID 500 MG TAB PO SCH ×2 (08:56→21:06)
[2017-03-25] MEDS: levETIRAcetam 500 MG TAB PO SCH ×2 (08:56→21:06)
[2017-03-25] MEDS: PANTOPRAZOLE SOD 40 MG DELAYED RELEASE TAB PO SCH (08:56)
[2017-03-25] MEDS: PRAVASTATIN SOD 20 MG TAB PO SCH (08:56)
[2017-03-25] MEDS: IRON SUCROSE INJ 100 MG in SODIUM CHLORIDE 0.9% INJ 100 ML IV SCH (08:57)
[2017-03-25] MEDS: METOPROLOL SUCCINATE 50 MG EXTENDED RELEASE TAB PO SCH (09:04)
[2017-03-25] MEDS: SODIUM CHLORIDE 0.9% FLUSH 10 ML FLUSH IV FLUSH SCH ×2 (10:07→21:07)
[2017-03-25] MEDS: ACETAMINOPHEN/HYDROcodone 325 MG/5 MG TAB PO PRN ×2 (11:39→21:14)
--- NOTE | 2017-03-25 12:02 | HHI.GIFU ---
Subjective Remarks Pt resting in bed. 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 (Bernie Jacome) Objective Vitals I&O Vital Signs Date Time Temp Pulse Resp B/P (MAP) Pulse Ox O2 Delivery O2 Flow Rate FiO2 03/25/17 11:17 59 03/25/17 10:00 78 03/25/17 09:00 74 03/25/17 08:00 61 03/25/17 07:00 98.4 68 16 85/51 (62) 95 03/25/17 07:00 61 03/25/17 06:00 63 03/25/17 05:00 69 03/25/17 04:00 98.7 68 18 110/54 (72) 96 03/25/17 04:00 67 03/25/17 03:00 62 03/25/17 02:00 60 03/25/17 01:00 70 03/25/17 00:00 98.8 62 18 112/68 (83) 97 03/25/17 00:00 64 03/24/17 23:00 62 03/24/17 22:00 68 03/24/17 21:00 71 03/24/17 20:00 73 03/24/17 19:00 65 03/24/17 19:00 98.5 65 16 112/66 (81) 96 03/24/17 18:05 75 03/24/17 17:52 18 03/24/17 17:00 66 03/24/17 16:00 88 03/24/17 15:00 98.7 76 20 113/67 (82) 97 03/24/17 15:00 64 03/24/17 14:00 62 03/24/17 13:00 62 03/24/17 12:25 16 03/24/17 12:00 68 I/O 03/24/17 03/24/17 03/24/17 03/25/17 03/25/17 03/25/17 07:00 15:00 23:00 07:00 15:00 23:00 Intake Total 360 ml 960 ml 480 ml 100 ml Output Total 400 ml Balance -40 ml 960 ml 480 ml 100 ml Intake Oral 360 ml 960 ml 480 ml IV Total 100 ml Output Urine Total 400 ml # Voids 3 3 # Bowel Movements 0 0 Imaging Last Impressions Liver Ultrasound 03/24/17 0000 Signed Impressions: Service Date/Time: Friday, March 24, 2017 08:16 - CONCLUSION: 1. Mild splenomegaly with spleen measuring up to 14.1 cm in length. 2. Otherwise, unremarkable ultrasound examination of the abdomen. Sim Reynoso MD Chest X-Ray 03/17/17 1937 Signed Impressions: Service Date/Time: Friday, March 17, 2017 19:48 - CONCLUSION: No acute cardiopulmonary disease. Iban Mcgee MD Physical Exam HEENT: Normocephalic; atraumatic CHEST: Even/unlabored CARDIAC: RRR +murmur ABDOMEN: Round, soft, nontender, bowel sounds active EXTREMITIES: No clubbing, cyanosis, or edema. SKIN: Normal; no rash; no jaundice. AMMONIUM SULFATE OPERATOR: No focal deficits; alert and oriented times three. (Bernie Jacome) Assessment and Plan Plan ASSESSMENT - Anemia - Normocytic, hypochromic. Iron-19 TIBC-433 % sat-4.4 Ferritin-14. EGD and colonoscopy 08/2015 EGD was unremarkable and colonoscopy revealed hyperplastic polyps, diverticulosis, hemorrhoids. Pt awaiting cardiac clearance before we can pursue endoscopic procedures. s/p cardiac cath, per cardiology CT surgery now consulted, who has consulted hematology. pt does not want procedures at this time. CT abd pending, pt wants to speak with Dr Ramírez first. US liver showed splenomegaly. HH stable. - Chest pain - cardiology following PLAN - hold on procedures - CT abd pending, if pt agrees - await cardiology f/u - Continue Iron and Vit C - Continue Protonix - Monitor H/H - Transfuse as needed - Notify GI of any active bleeding - f/u with GI after d/c - Supportive care This patient has been seen and examined by myself and Dr. Ash and this note is written on her behalf (Bernie Jacome) Bernie Jacome Mar 25, 2017 12:02 Brooke Ash MD Mar 25, 2017 17:02
[2017-03-25 13:49] LABS: AUTOMATED NEUTROPHIL # 3.4 TH/MM3 (1.8-7.7); BASOPHIL % 0.6 % (0.0-2.0); EOSINOPHIL # 0.2 TH/MM3 (0-0.4); EOSINOPHIL % 3.8 % (0.0-4.0); HEMATOCRIT 27.1 % (39.0-51.0); HEMOGLOBIN 8.5 GM/DL (13.0-17.0); LYMPH % 21.7 % (9.0-44.0); LYMPHOCYTE # 1.2 TH/MM3 (1.0-4.8); MEAN CORPUSCULAR HEMOGLOBIN 25.7 PG (27.0-34.0); MEAN CORPUSCULAR HGB CONC 31.4 % (32.0-36.0); MEAN PLATELET VOLUME 9.7 FL (7.0-11.0); MONO % 11.7 % (0.0-8.0); MONOCYTE # 0.6 TH/MM3 (0-0.9); NEUT % 62.2 % (16.0-70.0); PLATELET COUNT 102 TH/MM3 (150-450); RED BLOOD COUNT 3.31 MIL/MM3 (4.50-5.90); RED CELL DISTRIBUTION WIDTH 18.8 % (11.6-17.2); WHITE BLOOD COUNT 5.4 TH/MM3 (4.0-11.0)
--- NOTE | 2017-03-25 16:13 | HHI.PR ---
Subjective Remarks As per RN, the patient has been refusing workup ordered by the cardiothoracic PA. The patient states he wants to talk to Dr. Gamez first. The patient denies any current chest pain, however states had chest pain earlier. Denies chance of breath. Vital signs stable. Objective Vitals Vital Signs Date Time Temp Pulse Resp B/P (MAP) Pulse Ox O2 Delivery O2 Flow Rate FiO2 03/25/17 16:09 58 03/25/17 15:00 62 03/25/17 15:00 98.2 62 16 101/56 (71) 95 03/25/17 14:22 64 03/25/17 13:00 58 03/25/17 12:00 62 03/25/17 11:17 59 03/25/17 11:00 97.4 60 18 92/59 (70) 95 03/25/17 10:00 78 03/25/17 09:00 74 03/25/17 08:00 61 03/25/17 07:00 98.4 68 16 85/51 (62) 95 03/25/17 07:00 61 03/25/17 06:00 63 03/25/17 05:00 69 03/25/17 04:00 98.7 68 18 110/54 (72) 96 03/25/17 04:00 67 03/25/17 03:00 62 03/25/17 02:00 60 03/25/17 01:00 70 03/25/17 00:00 98.8 62 18 112/68 (83) 97 03/25/17 00:00 64 03/24/17 23:00 62 03/24/17 22:00 68 03/24/17 21:00 71 03/24/17 20:00 73 03/24/17 19:00 65 03/24/17 19:00 98.5 65 16 112/66 (81) 96 03/24/17 18:05 75 03/24/17 17:52 18 03/24/17 17:00 66 I/O 03/24/17 03/24/17 03/24/17 03/25/17 03/25/17 03/25/17 07:00 15:00 23:00 07:00 15:00 23:00 Intake Total 360 ml 960 ml 480 ml 100 ml Output Total 400 ml Balance -40 ml 960 ml 480 ml 100 ml Intake Oral 360 ml 960 ml 480 ml IV Total 100 ml Output Urine Total 400 ml # Voids 3 3 # Bowel Movements 0 0 Result Diagram: 03/25/17 1327 03/24/17 0524 Imaging Last Impressions Liver Ultrasound 03/24/17 0000 Signed Impressions: Service Date/Time: Friday, March 24, 2017 08:16 - CONCLUSION: 1. Mild splenomegaly with spleen measuring up to 14.1 cm in length. 2. Otherwise, unremarkable ultrasound examination of the abdomen. Sim Reynoso MD Chest X-Ray 03/17/17 193 Signed Impressions: Service Date/Time: Friday, March 17, 2017 19:48 - CONCLUSION: No acute cardiopulmonary disease. Iban Mcgee MD Objective Remarks GENERAL: This is a well-nourished, well-developed patient, in mild distress due to chest pain. CARDIOVASCULAR: Regular rate and regular rhythm without murmurs, gallops, or rubs. RESPIRATORY: Clear to auscultation. Breath sounds equal bilaterally. No wheezes , rales, or rhonchi. GASTROINTESTINAL: Abdomen soft, non-tender, nondistended. Normal, active bowel sounds MUSCULOSKELETAL: Extremities without clubbing, cyanosis, or edema. NEURO: Alert & Oriented x4 to person, place, time, situation. Moves all ext x4 Procedures cardiac cath. Medications and IVs Current Medications Medications (Trade) Dose Ordered Sig/Viky Route Start Time Stop Time Status Last Admin (NS Flush) 2 ml UNSCH PRN IV FLUSH 03/17/17 22:15 (NS Flush) 2 ml BID IV FLUSH 03/18/17 09:00 03/25/17 10:07 (Duoneb Neb) 1 ampule Q4HR NEB PRN INH 03/18/17 08:15 (Protonix) 40 mg DAILY PO 03/18/17 09:00 03/25/17 08:56 (Morphine Inj) 4 mg Q4H PRN IV PUSH 03/18/17 08:30 03/25/17 15:07 (Neurontin) 100 mg TID PO 03/18/17 09:00 03/25/17 15:07 (Keppra) 1,000 mg BID PO 03/18/17 09:00 03/25/17 08:56 (Toprol Xl) 50 mg DAILY PO 03/18/17 09:00 03/25/17 09:04 (Pravachol) 20 mg DAILY PO 03/18/17 09:00 03/25/17 08:56 (NovoLOG SUPPLEMENTAL SCALE) 1 ACHS SLIDING SCALE SQ 03/18/17 12:00 03/24/17 21:23 (D50w (Vial) Inj) 50 ml UNSCH PRN IV PUSH 03/18/17 08:30 (Glucagon Inj) 1 mg UNSCH PRN OTHER 03/18/17 08:30 (Aspirin) 325 mg DAILY PO 03/18/17 09:00 03/25/17 08:55 (Nitroglycerin 2% Oint) 0.5 inch Q6HR TOPICAL 03/18/17 12:00 03/22/17 06:40 (Ferrous Sulfate) 325 mg BID PO 03/20/17 09:00 03/25/17 08:55 (Vitamin C) 250 mg BID PO 03/20/17 09:00 03/25/17 08:56 (Aspirin) 325 mg SUPERVISOR PHOTOCOMPOSITION PO 03/22/17 16:00 03/26/17 15:59 03/23/17 07:16 (Benadryl) 25 mg SUPERVISOR PHOTOCOMPOSITION PO 03/22/17 16:15 03/26/17 16:14 03/23/17 07:17 (Valium) 5 mg SUPERVISOR PHOTOCOMPOSITION PO 03/22/17 16:00 03/26/17 15:59 Nitroglycerin/ Dextrose 250 ml @ 1.5 mls/hr TITRATE PRN IV 03/23/17 12:45 ([place] 5-325 Mg) 1 tab Q6H PRN PO 03/23/17 18:30 03/25/17 11:39 Iron Sucrose 100 mg/Sodium Chloride 105 ml @ 105 mls/hr DAILY IV 03/24/17 22:00 03/26/17 09:59 03/25/17 08:57 A/P Problem List: (1) CAD (coronary artery disease) ICD Code: I25.10 - Atherosclerotic heart disease of [place] coronary artery without angina pectoris (2) Systolic CHF, chronic ICD Code: I50.22 - Chronic systolic congestive heart failure Status: Chronic (3) Cardiomyopathy ICD Code: I42.9 - Cardiomyopathy Status: Chronic (4) Anemia ICD Code: D64.9 - Anemia Status: Chronic (5) Hypertension ICD Code: I10 - Essential (primary) hypertension (6) Thrombocytopenia ICD Code: D69.6 - Thrombocytopenia Status: Acute (7) Tobacco abuse ICD Code: Z72.0 - Tobacco use (8) ETOH abuse ICD Code: F10.10 - ETOH abuse Status: Chronic (9) Hx of CABG ICD Code: Z95.1 - Presence of aortocoronary bypass graft Status: Chronic (10) Diabetes mellitus ICD Code: E11.9 - Type 2 diabetes mellitus without complications (11) Seizure disorder ICD Code: G40.909 - Epilepsy, unspecified, not intractable, without status epilepticus Status: Chronic Assessment and Plan (1) CAD (coronary artery disease) ICD Code: I25.10 - Atherosclerotic heart disease of [place] coronary artery without angina pectoris Plan: CAD with left main disease on cardiac cath. continue aspirin , BB and statin- CT surgery consulted. cardiology following. 03/24 had some mild chest pain relieved with pain medications. As per CT surgery Dr Ramírez spoke with Dr Saunders ( regarding possible transfer to [facility] for redo surgery) / await answer if not accepted, then will need to be evaluated for transfer to tertiary center [facility] or [facility]. 03/24 CT surgery workup ordered. Will follow up results. Patient has been refusing workup. (2) Systolic CHF, chronic ICD Code: I50.22 - Chronic systolic congestive heart failure Status: Chronic Plan: Echocardiogram showed The left ventricular systolic function is moderately reduced with an estimated ejection fraction 35%.. Akinesis and scarring of the distal anteroseptal and apical myocardium.The left atrial size is moderately dilated. There is a pacemaker wire present in the right atrial cavity. [id number] mitral valve regurgitation. Mitral annular calcification is present. There is moderate tricuspid regurgitation. There is estimated mild pulmonary hypertension present (46 mmHg). Congestive heart failure seems stable. (3) Cardiomyopathy ICD Code: I42.9 - Cardiomyopathy Status: Chronic Plan: Echo as above. (4) Anemia ICD Code: D64.9 - Anemia Status: Chronic Plan: GI consult appreciated; awaiting cardiac work-up/ clearance prior to further GI work-up. started on ferrous sulfate. H/H fairly stable- continue to monitor H/H. (5) Hypertension ICD Code: I10 - Essential (primary) hypertension Plan: BP seems stable. Continue current antihypertensive medications. (6) Thrombocytopenia ICD Code: D69.6 - Thrombocytopenia Status: Acute Plan: Hematology consulted. Recommendations appreciated. Likely multifactorial due to anticonvulsant therapy, liver disease and alcohol abuse. Platelets trending up, continue to monitor platelets. Started on IV iron. 03/25 plates are trending up. (7) Tobacco abuse ICD Code: Z72.0 - Tobacco use Plan: Advised smoking cessation. (8) ETOH abuse ICD Code: F10.10 - ETOH abuse Status: Chronic Plan: Advised alcohol abstinence. (9) Hx of CABG ICD Code: Z95.1 - Presence of aortocoronary bypass graft Status: Chronic Plan: As above. Cardiology and CT surgery following. Patient needs redo CABG however high risk. (10) Diabetes mellitus ICD Code: E11.9 - Type 2 diabetes mellitus without complications Plan: Patient with improved hemoglobin A1C 8.3 on 11/13/16, down to 6.3 on this admission. Blood sugars with acceptable control, Glipizide held. Continue SSI with insulin Novolog and continue to monitor accuchecks. 03/25 Blood sugars are stable. (11) Seizure disorder ICD Code: G40.909 - Epilepsy, unspecified, not intractable, without status epilepticus Status: Chronic Plan: No seizure activity observed. Continue home anticonvulsant therapy. GI prophylaxis: PPI. DVT prophylaxis: SCD's, no chemoprophylaxis given anemia and thrombocytopenia. GI prophylaxis: PPI. DVT prophylaxis: SCD's, no chemoprophylaxis given anemia and thrombocytopenia. Discharge Planning Continue to monitor in cardiac floor. Awaiting CT surgery recommendations. Possibly will need transfer to another hospital. Problem Qualifiers (1) CAD (coronary artery disease): Qualified Codes: I25.10 - Atherosclerotic heart disease of [place] coronary artery without angina pectoris (2) Cardiomyopathy: Qualified Codes: I25.5 - Ischemic cardiomyopathy (3) Anemia: Qualified Codes: D50.0 - Iron deficiency anemia secondary to blood loss ( chronic) (4) Hypertension: Qualified Codes: I10 - Essential (primary) hypertension (5) Diabetes mellitus: Qualified Codes: E11.8 - Type 2 diabetes mellitus with unspecified complications Bear Landry MD Mar 25, 2017 16:13
[2017-03-25 23:53] LABS: ENDOMYSIAL AB SCREEN ND (NEGATIVE); ENDOMYSIAL AB TITER ND (<1:5)
[2017-03-26] VITALS (16 sets, daily range): BP systolic 88–118; BP diastolic 55–80; PULSE 56–80; RESP 16; TEMP 97.4–98.3; O2SAT 93–96
[2017-03-26] MEDS: ACETAMINOPHEN/HYDROcodone 325 MG/5 MG TAB PO PRN ×2 (02:59→13:44)
[2017-03-26] MEDS: MORPHINE SULFATE 2 MG/ML INJ IV PUSH PRN ×2 (04:16→10:37)
[2017-03-26] MEDS: INSULIN ASPART SUPPLEMENTAL SCALE SQ SCH ×2 (08:49→12:21)
[2017-03-26] MEDS: IRON SUCROSE INJ 100 MG in SODIUM CHLORIDE 0.9% INJ 100 ML IV SCH (10:07)
[2017-03-26] MEDS: GABAPENTIN 100 MG CAP PO SCH ×2 (10:07→13:40)
[2017-03-26] MEDS: ASPIRIN 325 MG TAB PO SCH (10:07)
[2017-03-26] MEDS: levETIRAcetam 500 MG TAB PO SCH (10:08)
[2017-03-26] MEDS: METOPROLOL SUCCINATE 50 MG EXTENDED RELEASE TAB PO SCH (10:08)
[2017-03-26] MEDS: PRAVASTATIN SOD 20 MG TAB PO SCH (10:08)
[2017-03-26] MEDS: PANTOPRAZOLE SOD 40 MG DELAYED RELEASE TAB PO SCH (10:08)
[2017-03-26] MEDS: FERROUS SULFATE 325 MG (65 MG ELEMENTAL IRON) TAB PO SCH (10:08)
[2017-03-26] MEDS: ASCORBIC ACID 500 MG TAB PO SCH (10:09)
[2017-03-26] MEDS: SODIUM CHLORIDE 0.9% FLUSH 10 ML FLUSH IV FLUSH SCH (10:10)
[2017-03-26] MEDS: NITROGLYCERIN 2% OINT 1 GM PACKET TOPICAL SCH (12:22)
--- NOTE | 2017-03-26 12:34 | PD.CAR.PN ---
CVT Progress Note Subjective/Hospital Course: 57-year-old male who has had multiple admissions for chest pain and seizure disorder. He has a longstanding cardiac history. He presented to the emergency room with chest pain in his left chest radiating to his left arm and left neck with only intermittent relief. The patient continues to smoke a half pack per day and drink alcohol on a regular basis. He has been taking his statin and also Xarelto for history of apical thrombus. His last dose of Xarelto was Thursday 03/16. The patient has a significant cardiac history with coronary artery bypass graft x3 in 1997 preceded by an PR. Also his coronary artery bypass was a vein graft to the diagonal marginal and TAPIA to the LAD. His last cardiac cath was in December 2007. The TAIPA and all vein grafts were occluded. He had a proximal stent with about 30% in-stent restenosis. He had a stress test back in November which showed a large fixed apical defect with an EF of 40%. He has a history of ventricular tachycardia and cardiomyopathy with class III [place] Heart failure where he had a defibrillator initially placed in 1999. The ICD was replaced in 2015 secondary to a bacteremia. He sees Dr. Beaulieu on a yearly basis and also sees Dr. James. On ED admission the troponins were negative, but because of his longstanding history and coronary disease he underwent cardiac cath by Dr. Jacob Coats which showed a left main disease of 85% ostial stenosis. The proximal LAD stent had an estimated stenosis of 60-70%. The circumflex artery was dominant giving off a large PDA and appears fairly normal. The RCA was nondominant with no significant stenosis. He also was found to have significant 3+ mitral regurgitation. Echocardiogram showed ejection fraction of 35%, akinesis and scarring of the distal anterior septal and apical myocardium. The left atrium was moderately dilated. There was moderate tricuspid regurgitation and moderate to severe mitral valve regurgitation. Mitral valve peak velocity was 520 centimeters squared, peak gradient 108 mmHg. We were consulted to evaluate for possible redo coronary artery bypass grafting and evaluation for mitral valve replacement. 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 Coronary artery bypass [place] x[place] [address] Felipe Saunders , Cardiac cath with stent placed to the LAD' last cath was in 2007, AICD , which was replaced in August 2015. 03/24 further CVS workup pending had some mild chest pain last pm , relieved with pain meds Dr Ramírez spoke with Dr Saunders ( regarding possible transfer to [facility] for redo surgery) / await answer if not accepted, then will need to be evaluated for transfer to tertiary center [facility], or [facility] pt is a high risk for surgery and has a mortality risk of 12 03/25 pt was still refusing cardiac workup , Dr Ramírez spoke with pt recommendation is possible eval at [facility] 03/26 Dr Ramírez spoke again in depth with pt regarding possible transfer to [facility] in [place] to be eval for high PCI pt is refusing transfer, wants to go home, and see Dr Ramírez in office next week , discussed high risk for major cardiac event if he goes home Dr Ramírez spoke with Dr Coats , call placed to Dr Rivera , PCP updated Objective: GENERAL: SKIN: Warm and dry. HEAD: Normocephalic. EYES: No scleral icterus. No injection or drainage. NECK: Supple, trachea midline. No JVD or lymphadenopathy. CARDIOVASCULAR: Regular rate and rhythm 2/6sm no gallops, or rubs. RESPIRATORY: Breath sounds equal bilaterally. No accessory muscle use. GASTROINTESTINAL: Abdomen soft, non-tender, nondistended. MUSCULOSKELETAL: No cyanosis, or edema. BACK: Nontender without obvious deformity. No CVA tenderness. Vital Signs Date Time Temp Pulse Resp B/P (MAP) Pulse Ox O2 Delivery O2 Flow Rate FiO2 03/26/17 12:17 97.4 80 16 118/80 (93) 96 03/26/17 07:40 97.9 64 16 88/55 (66) 96 03/26/17 07:10 56 03/26/17 04:15 98.1 71 16 106/63 (77) 95 03/26/17 04:00 62 03/26/17 00:00 98.2 62 16 95/55 (68) 93 03/26/17 00:00 69 03/25/17 20:00 60 03/25/17 20:00 97.2 63 18 104/60 (75) 96 03/25/17 18:33 83 1/11/18 17:44 63 03/25/17 17:27 97.9 66 16 101/56 (71) 96 03/25/17 17:14 64 03/25/17 16:09 58 03/25/17 15:00 62 03/25/17 15:00 98.2 62 16 101/56 (71) 95 03/25/17 14:22 64 03/25/17 13:00 58 Result Diagram: 03/25/17 1327 03/24/17 0524 Telemetry: NSR (1) Cardiomyopathy (2) Tobacco abuse Plan: smoking cessation (3) Thrombocytopenia Plan: PLT stable , now 102 (4) Systolic CHF, chronic (5) ETOH abuse Plan: no evidence of withdrawal (6) Chest pain (7) CAD (coronary artery disease) Plan: on ASA, statin, BB pt refusing transfer to [facility] at this time (8) History of seizure disorder Plan: on Keppra Problem Qualifiers (1) Cardiomyopathy: Qualified Codes: I25.5 - Ischemic cardiomyopathy (2) CAD (coronary artery disease): Qualified Codes: I25.10 - Atherosclerotic heart disease of [place] coronary artery without angina pectoris Edith Whitlock Mar 26, 2017 12:34
--- NOTE | 2017-03-26 14:27 | PD.ONC.PN ---
Subjective Subjective Remarks Afebrile overnight. Patient resting in room. Denies pain or complaints at present. No bleeding. Considering refusing transfer for PCI, not sure if he wants intervention. Objective Data Date Time Temp Pulse Resp B/P (MAP) Pulse Ox O2 Delivery O2 Flow Rate FiO2 03/26/17 13:02 75 03/26/17 12:17 97.4 80 16 118/80 (93) 96 03/26/17 12:00 72 03/26/17 11:00 67 03/26/17 10:00 64 03/26/17 09:00 58 03/26/17 08:00 60 03/26/17 07:40 97.9 64 16 88/55 (66) 96 03/26/17 07:10 56 03/26/17 04:15 98.1 71 16 106/63 (77) 95 03/26/17 04:00 62 03/26/17 00:00 98.2 62 16 95/55 (68) 93 03/26/17 00:00 69 03/25/17 20:00 60 03/25/17 20:00 97.2 63 18 104/60 (75) 96 03/25/17 18:33 83 03/25/17 17:44 63 03/25/17 17:27 97.9 66 16 101/56 (71) 96 03/25/17 17:14 64 03/25/17 16:09 58 03/25/17 15:00 62 03/25/17 15:00 98.2 62 16 101/56 (71) 95 03/26/17 03/26/17 03/26/17 07:00 15:00 23:00 Intake Total 620 ml 100 ml Balance 620 ml 100 ml Result Diagram: 03/25/17 1327 03/24/17 0524 Administered Medications Medications (Trade) Dose Ordered Sig/Viky Route PRN Reason Start Time Stop Time Status Last Admin Dose Admin Sodium Chloride (NS Flush) 2 ml UNSCH PRN IV FLUSH FLUSH AFTER USING IV ACCESS 03/17/17 22:15 03/26/17 10:37 Sodium Chloride (NS Flush) 2 ml BID IV FLUSH 03/18/17 09:00 03/26/17 10:10 Pantoprazole Sodium (Protonix) 40 mg DAILY PO 03/18/17 09:00 03/26/17 10:08 Morphine Sulfate (Morphine Inj) 4 mg Q4H PRN IV PUSH PAIN SCALE 6 TO 10 03/18/17 08:30 03/26/17 10:37 Gabapentin (Neurontin) 100 mg TID PO 03/18/17 09:00 03/26/17 13:40 Levetriacetam (Keppra) 1,000 mg BID PO 03/18/17 09:00 03/26/17 10:08 Metoprolol Succinate (Toprol Xl) 50 mg DAILY PO 03/18/17 09:00 03/26/17 10:08 Pravastatin Sodium (Pravachol) 20 mg DAILY PO 03/18/17 09:00 03/26/17 10:08 Insulin Aspart (NovoLOG SUPPLEMENTAL SCALE) 1 ACHS SLIDING SCALE SQ 03/18/17 12:00 03/25/17 18:51 Aspirin (Aspirin) 325 mg DAILY PO 03/18/17 09:00 03/26/17 10:07 Nitroglycerin (Nitroglycerin 2% Oint) 0.5 inch Q6HR TOPICAL 03/18/17 12:00 03/22/17 06:40 Ferrous Sulfate (Ferrous Sulfate) 325 mg BID PO 03/20/17 09:00 03/26/17 10:08 Ascorbic Acid (Vitamin C) 250 mg BID PO 03/20/17 09:00 03/26/17 10:09 Aspirin (Aspirin) 325 mg NEUROSURGERY SPINE PHYSICIAN PO 03/22/17 16:00 03/26/17 15:59 03/23/17 07:16 Diphenhydramine HCl (Benadryl) 25 mg NEUROSURGERY SPINE PHYSICIAN PO 03/22/17 16:15 03/26/17 16:14 03/23/17 07:17 Acetaminophen/ Hydrocodone Bitart ([place] 5-325 Mg) 1 tab Q6H PRN PO PAIN SCALE 1-10 03/23/17 18:30 03/26/17 13:44 Objective Remarks GENERAL: Pleasant middle aged male, sitting up on side of bed eating lunch. SKIN: Warm and dry. HEAD: Normocephalic. EYES: No injection or drainage. NECK: Supple, trachea midline. CARDIOVASCULAR: Regular rate and rhythm RESPIRATORY: Breath sounds equal bilaterally. No accessory muscle use. GASTROINTESTINAL: Abdomen soft, non-tender, nondistended. EXTREMITIES: No cyanosis NEUROLOGICAL: awake and alert, normal speech. moving all extremities. Assessment/Plan Problem List: (1) Thrombocytopenia ICD Codes: D69.6 - Thrombocytopenia Status: Acute Plan: 03/26: most recent platelet count is 102K, monitor CBC -- Bone marrow biopsy from May 2014 showed normal cellular marrow -- Iron studies show iron deficiency -- Patient also has persistent alcohol use -- Liver ultrasound shows mild splenomegaly -- No bleeding noted -- Also on antiseizure medication that may be related to thrombocytopenia -- Priyanka negative (2) CAD (coronary artery disease) ICD Codes: I25.10 - Atherosclerotic heart disease of [place] coronary artery without angina pectoris Plan: -- History of CABG -- Recent cardiac catheterization showed elevated left ventricular end- diastolic pressure, severely impaired LV function and 3+ mitral regurgitation and critical left main disease. -- Being followed by CV surgery Assessment 57 y/o male with CAD; hematology consulted for thrombocytopenia Plan 1. monitor CBC 2. recommend platelet transfusion prior to procedure if patient decides to undergo procedure. Attending Statement The exam, history, and the medical decision-making described in the above note were completed with the assistance of the mid-level provider. I reviewed and agree with the findings presented. I attest that I had a [id number] encounter with the patient on the same day, and personally performed and documented my assessment and findings in the medical record. Pt seen and examined, transfer to new room. STill thrombocytopenic. REcommend supportive transfusion if surgery. Cont tx of iron deficiency. Problem Qualifiers (1) CAD (coronary artery disease): Qualified Codes: I25.10 - Atherosclerotic heart disease of [place] coronary artery without angina pectoris Yuni Mohr Mar 26, 2017 14:27 Patience Arce MD Mar 26, 2017 15:49
[2017-03-26 14:40] LABS: AUTOMATED NEUTROPHIL # 4.6 TH/MM3 (1.8-7.7); BASOPHIL % 0.6 % (0.0-2.0); EOSINOPHIL # 0.2 TH/MM3 (0-0.4); HEMATOCRIT 30.4 % (39.0-51.0); HEMOGLOBIN 9.3 GM/DL (13.0-17.0); LYMPH % 18.9 % (9.0-44.0); LYMPHOCYTE # 1.3 TH/MM3 (1.0-4.8); MEAN CELL VOLUME 82.4 FL (80.0-100.0); MEAN CORPUSCULAR HEMOGLOBIN 25.2 PG (27.0-34.0); MEAN CORPUSCULAR HGB CONC 30.5 % (32.0-36.0); MEAN PLATELET VOLUME 9.7 FL (7.0-11.0); MONO % 8.2 % (0.0-8.0); MONOCYTE # 0.5 TH/MM3 (0-0.9); NEUT % 69.3 % (16.0-70.0); PLATELET COUNT 122 TH/MM3 (150-450); RED BLOOD COUNT 3.68 MIL/MM3 (4.50-5.90); RED CELL DISTRIBUTION WIDTH 20.1 % (11.6-17.2); WHITE BLOOD COUNT 6.7 TH/MM3 (4.0-11.0)
[2017-03-26] MEDS ORDERED: ECASA81 PO (15:00)
[2017-03-26] MEDS ORDERED: VENTAER INH (15:00)
[2017-03-26] MEDS ORDERED: XARE20TA PO (15:00)
--- NOTE | 2017-03-26 15:01 | HHI.DCPOC ---
Discharge Care Plan Diagnosis: (1) Hx of CABG (2) CAD (coronary artery disease) (3) History of seizure disorder (4) Cardiomyopathy (5) Hypertension (6) Seizure disorder (7) Anemia (8) Diabetes mellitus (9) Chest pain (10) Systolic CHF, chronic (11) ETOH abuse (12) Tobacco abuse (13) Thrombocytopenia (14) UTI (urinary tract infection) (15) Chest pain (16) Hyperlipidemia (17) Coronary artery disease Goals to Promote Your Health * To prevent worsening of your condition and complications * To maintain your health at the optimal level Directions to Meet Your Goals Take your medications as prescribed Follow your dietary instruction Follow activity as directed Keep your appointments as scheduled Take your immunizations and boosters as scheduled If your symptoms worsen call your PCP, if no PCP go to Urgent Care Center or Emergency Room Smoking is Dangerous to Your Health. Avoid second hand smoke Call the 24-hour hour crisis hotline for domestic abuse at Bear Landry MD Mar 26, 2017 15:01
[2017-03-26] MEDS ORDERED: MSIR15 PO (15:04)
--- NOTE | 2017-03-26 15:09 | HHI.DS ---
Discharge Summary Admission Date Mar 23, 2017 at 17:03 Discharge Date: Mar 26, 2017 Admitting Diagnosis chest pain (1) CAD (coronary artery disease) ICD Code: I25.10 - Atherosclerotic heart disease of [place] coronary artery without angina pectoris (2) Systolic CHF, chronic ICD Code: I50.22 - Chronic systolic congestive heart failure Status: Chronic (3) Cardiomyopathy ICD Code: I42.9 - Cardiomyopathy Status: Chronic (4) Anemia ICD Code: D64.9 - Anemia Status: Chronic (5) Hypertension ICD Code: I10 - Essential (primary) hypertension (6) Thrombocytopenia ICD Code: D69.6 - Thrombocytopenia Status: Acute (7) Tobacco abuse ICD Code: Z72.0 - Tobacco use (8) ETOH abuse ICD Code: F10.10 - ETOH abuse Status: Chronic (9) Hx of CABG ICD Code: Z95.1 - Presence of aortocoronary bypass graft Status: Chronic (10) Diabetes mellitus ICD Code: E11.9 - Type 2 diabetes mellitus without complications (11) Seizure disorder ICD Code: G40.909 - Epilepsy, unspecified, not intractable, without status epilepticus Status: Chronic Procedures cardiac cath. CBC/BMP: 03/26/17 1355 03/24/17 0524 Significant Findings Laboratory Tests Test 03/23/17 15:40 03/23/17 21:07 03/24/17 05:24 03/25/17 13:27 Hemoglobin A1c 6.3 % (4.3-6.0) Alkaline Phosphatase 211 U/L (45-117) Albumin 3.1 GM/DL (3.4-5.0) Red Blood Count 3.33 MIL/MM3 (4.50-5.90) 3.31 MIL/MM3 (4.50-5.90) Hemoglobin 8.5 GM/DL (13.0-17.0) 8.5 GM/DL (13.0-17.0) Hematocrit 27.3 % (39.0-51.0) 27.1 % (39.0-51.0) Mean Corpuscular Hemoglobin 25.6 PG (27.0-34.0) 25.7 PG (27.0-34.0) Mean Corpuscular Hemoglobin Concent 31.3 % (32.0-36.0) 31.4 % (32.0-36.0) Red Cell Distribution Width 18.1 % (11.6-17.2) 18.8 % (11.6-17.2) Platelet Count 88 TH/MM3 (150-450) 102 TH/MM3 (150-450) Monocytes (%) (Auto) 11.5 % (0.0-8.0) 11.7 % (0.0-8.0) Eosinophils (%) (Auto) 4.4 % (0.0-4.0) Platelet Estimate LOW (NORMAL) Fibrinogen 612 mg/dL (227-377) Chloride Level 109 MEQ/L (98-107) Estimat Glomerular Filtration Rate 71 ML/MIN (>89) Test 03/26/17 13:55 Red Blood Count 3.68 MIL/MM3 (4.50-5.90) Hemoglobin 9.3 GM/DL (13.0-17.0) Hematocrit 30.4 % (39.0-51.0) Mean Corpuscular Hemoglobin 25.2 PG (27.0-34.0) Mean Corpuscular Hemoglobin Concent 30.5 % (32.0-36.0) Red Cell Distribution Width 20.1 % (11.6-17.2) Platelet Count 122 TH/MM3 (150-450) Monocytes (%) (Auto) 8.2 % (0.0-8.0) Imaging Last Impressions Liver Ultrasound 03/24/17 0000 Signed Impressions: Service Date/Time: Friday, March 24, 2017 08:16 - CONCLUSION: 1. Mild splenomegaly with spleen measuring up to 14.1 cm in length. 2. Otherwise, unremarkable ultrasound examination of the abdomen. Sim Reynoso MD Chest X-Ray 03/17/17 1937 Signed Impressions: Service Date/Time: Friday, March 17, 2017 19:48 - CONCLUSION: No acute cardiopulmonary disease. Iban Mcgee MD PE at Discharge GENERAL: This is a well-nourished, well-developed patient, in mild distress due to chest pain. CARDIOVASCULAR: Regular rate and regular rhythm without murmurs, gallops, or rubs. RESPIRATORY: Clear to auscultation. Breath sounds equal bilaterally. No wheezes , rales, or rhonchi. GASTROINTESTINAL: Abdomen soft, non-tender, nondistended. Normal, active bowel sounds MUSCULOSKELETAL: Extremities without clubbing, cyanosis, or edema. NEURO: Alert & Oriented x4 to person, place, time, situation. Moves all ext x4 Pt update on day of discharge The patient is complaining of mild chest pain. Denies fevers or chills, denies cough. I discussed the case with Dr. Gamez from thoracic surgery who states that the patient is refusing cardiovascular workup, he is also refusing to be transferred to [facility] in [place] to be related for high PCI. Patient wants to go home and follow-up in the office next week with cardiothoracic surgery. He was discussed the high risk for major cardiac event if he goes home. Dr. Gamez spoke with Dr. Coats and call was placed to Dr. Rivera whom I was told by Dr Gamez is not currently in town. Patient wishes to be discharged and to follow up as an outpatient. Pt Condition on Discharge: Stable Discharge Disposition: Discharge Home Discharge Instructions DIET: Follow Instructions for: Heart Healthy Diet, Diabetic Diet Activities you can perform: Regular-No Restrictions Activities to Avoid: Strenuous Activity, Sexual Activity Bear Landry MD Mar 26, 2017 15:09
--- NOTE | 2017-03-31 09:44 | RSPPFT ---
DATE OF PROCEDURE: 03/24/17 COMMENTS: Spirometry with FVC of 2.1, FEV1 of 1.2, FEV1/FVC ratio at 55%. Post-bronchodilator study was not performed. IMPRESSION: 1. Moderately severe airways obstruction.
== END 2017-03-26 17:19 | disposition home or self-care (01) | DRG 287 ==
LOC: NEPC 19:20 → NEDA 21:34 → NEPFCDU 22:34 → HCIS 03-23 07:58 → HCPC 03-23 11:00 → OBSVTOIN 03-23 17:03 → HCIS 03-25 17:22
PROVIDERS: ADMIT Hospitalist; ATTEND Hospitalist
PROC: B2111ZZ Fluoroscopy of Multiple Coronary Arteries using Low Osmolar Contrast (ICD-10-PCS; 2017-03-23)
PROC: B2151ZZ Fluoroscopy of Left Heart using Low Osmolar Contrast (ICD-10-PCS; 2017-03-23)
PROC: 4A023N7 Measurement of Cardiac Sampling and Pressure, Left Heart, Percutaneous Approach (ICD-10-PCS; principal; 2017-03-23 07:30)
DX: I25.10 Atherosclerotic heart disease of native coronary artery without angina pectoris (principal); E11.51 Type 2 diabetes mellitus with diabetic peripheral angiopathy without gangrene; D69.6 Thrombocytopenia, unspecified; I11.0 Hypertensive heart disease with heart failure; I50.22 Chronic systolic (congestive) heart failure; I25.810 Atherosclerosis of coronary artery bypass graft(s) without angina pectoris; T82.855A Stenosis of coronary artery stent, initial encounter; Z79.84 Long term (current) use of oral hypoglycemic drugs; R16.1 Splenomegaly, not elsewhere classified; D50.9 Iron deficiency anemia, unspecified; I25.5 Ischemic cardiomyopathy; Z95.810 Presence of automatic (implantable) cardiac defibrillator; Z95.1 Presence of aortocoronary bypass graft; I34.0 Nonrheumatic mitral (valve) insufficiency; I25.2 Old myocardial infarction; Z79.02 Long term (current) use of antithrombotics/antiplatelets; E78.5 Hyperlipidemia, unspecified; J44.9 Chronic obstructive pulmonary disease, unspecified; F17.210 Nicotine dependence, cigarettes, uncomplicated; G40.909 Epilepsy, unspecified, not intractable, without status epilepticus; Z91.19 Patient's noncompliance with other medical treatment and regimen; K76.0 Fatty (change of) liver, not elsewhere classified; M10.9 Gout, unspecified; F10.10 Alcohol abuse, uncomplicated
CPT/HCPCS: 71045; 76705; 80048; 80076; 82550; 82607; 82728; 82746; 82784; 82948; 83036; 83516; 83540; 83550; 83615; 84484; 85007; 85014; 85018; 85025; 85027; 85384; 85610; 85730; 86880; 93005; 93306; 93458; 94010; 94664; 96361; 96374; 96375; 96376; 99152; 99153; C1769; C1893; C9113; G0378; J1644; J1756; J1815; J1885; J2250; J2270; J2405; J3010; J3420; J7030; Q9967

== ENCOUNTER 2017-06-25 22:28 | Observation (INO) | payer MEDICARE, MEDICAID ==
[~2017-06-25] VITALS: Ht 182.9 cm; Wt 82.0 kg
[~2017-06-25 22:28] MED LIST changes: -BACT800T5 PO; +ECASA81 PO; +MSIR15 PO
[2017-06-25 22:33] VITALS: BP 112/70; PULSE 74; RESP 17; TEMP 98; O2SAT 98
--- NOTE | 2017-06-25 23:17 | PD ---
HPI Chief Complaint: Respiratory Symptoms Time Seen by Provider: 22:38 Travel History International Travel<30 days: No Contact w/Intl Traveler<30days: No Traveled to known affect area: No History of Present Illness HPI Patient is a 57-year-old male complaining of left-sided chest pain that started today at rest it was nonexertional and it is been constant he refused a nitroglycerin in the ambulance because it gives him a horrible headache he says he is on Xarelto he has a history of a CABG many years ago he has history of COPD and his main complaint is left-sided chest pain with arm radiation and radiation to the back he did not take any medication to alleviate the symptoms and he is not diaphoretic is not nauseous is not vomiting here in the ER he is stable vitals within normal limits.. EKG shows flipped T waves in V5 V6 with minimal depressions at a rate of 75. i compare to old and see no significant cahnges in EKG PFSH Past Medical History Hx Anticoagulant Therapy: Yes (Xarelto) Arthritis: No Asthma: No Atrial Fibrillation: Yes Autoimmune Disease: No Blood Disorders: No Anxiety: No Depression: No Heart Rhythm Problems: Yes (Afib) Cancer: No Cardiac Catheterization: Yes (5-10 times) Cardiovascular Problems: Yes (CABGx3, HTN, CAD, AICD) High Cholesterol: Yes Chemotherapy: No Chest Pain: Yes Congestive Heart Failure: Yes COPD: Yes Cerebrovascular Accident: No Diabetes: Yes Patient Takes Glucophage: No Diminished Hearing: No Endocrine: No Gastrointestinal Disorders: Yes GERD: No Glaucoma: No Genitourinary: No Headaches: Yes Hepatitis: No Hiatal Hernia: No Hypertension: Yes Immune Disorder: No Implanted Vascular Access Dvce: Yes Kidney Stones: No Musculoskeletal: No Neurologic: Yes Psychiatric: No Reproductive: No Respiratory: Yes (COPD) Migraines: No Myocardial Infarction: Yes Radiation Therapy: No Renal Failure: No Seizures: Yes (EPILEPSY 2001) Sickle Cell Disease: No Sleep Apnea: No Thyroid Disease: No Ulcer: No Influenza Vaccination: No PNEUMOCCOCAL Vaccine (Year): 2 Past Surgical History Abdominal Aneurysm Repair: Yes (1995) Abdominal Surgery: No AICD: Yes (01/20 [facility] MN:[id number], SN:[id number], removed) Appendectomy: No Arteriovenous Shunt: No Body Medical Devices: PACER Cardiac Surgery: Yes (CABG X 3 VESSEL IN , pacer, ablation) Cholecystectomy: No Coronary Artery Bypass Graft: Yes (1998 x3) Coronary Stent: Yes Ear Surgery: No Endocrine Surgery: No Eye Surgery: No Genitourinary Surgery: No Gynecologic Surgery: No Insulin Pump: No Joint Replacement: No Oral Surgery: No Pacemaker: Yes (AICD VIA DR GREGORIO) Thoracic Surgery: No Social History Alcohol Use: Yes (12-pack daily) Tobacco Use: Yes (1 PPD) Substance Use: No Allergies-Medications (Allergen,Severity, Reaction): Coded Allergies: cefazolin (Unverified Allergy, Severe, Hives, 06/25/17) nitroglycerin (Unverified Adverse Reaction, Intermediate, Nausea/Vomiting , 06/25/17) MD aware. aspirin (Verified Adverse Reaction, Unknown, gi upset, 06/25/17) MD aware Reported Meds & Prescriptions Reported Meds & Active Scripts Active Morphine IR (Morphine Sulfate) 15 Mg Tab 15 Mg PO Q4H PRN Aspirin DR (Aspirin) 81 Mg Tabdr 81 Mg PO DAILY Ventolin Hfa 18 GM Inh (Albuterol Sulfate) 90 Mcg/Act Aer 2 Puff INH Q4H PRN Xarelto (Rivaroxaban) 20 Mg Tab 20 Mg PO DAILY Blood Glucose System Donny (Blood Glucose Monitoring Suppl) 1 Kit Kit Kit Glipizide 5 Mg Tab 5 Mg PO DAILY Take 30 minutes before a meal Reported Metoprolol Succinate ER 24 HR (Metoprolol Succinate) 50 Mg Tab 50 Mg PO DAILY Gabapentin 100 Mg Cap 100 Mg PO TID Levetiracetam 1,000 Mg Tab 1,000 Mg PO BID Simvastatin 10 Mg Tab 10 Mg PO DAILY Review of Systems Except as stated in HPI: all other systems reviewed are Neg Physical Exam Narrative GENERAL: Awake alert nondiaphoretic no nausea no vomiting no signs of acute ischemic event SKIN: Warm and dry. HEAD: Atraumatic. Normocephalic. EYES: Pupils equal and round. No scleral icterus. No injection or drainage. ENT: No nasal bleeding or discharge. Mucous membranes pink and moist. NECK: Trachea midline. No JVD. CARDIOVASCULAR: Regular rate and rhythm. Regular rate and rhythm EKG is sinus rhythm with 75 bpm mid sternotomy scar well-healed RESPIRATORY: No accessory muscle use. Patient his wheezing in the right lung expiratory GASTROINTESTINAL: Abdomen soft, non-tender, nondistended. Hepatic and splenic margins not palpable. MUSCULOSKELETAL: Extremities without clubbing, cyanosis, or edema. No obvious deformities. NEUROLOGICAL: Awake and alert. No obvious cranial nerve deficits. Motor grossly within normal limits. Five out of 5 muscle strength in the arms and legs. Normal speech. PSYCHIATRIC: Appropriate mood and affect; insight and judgment normal. Data Data Last Documented VS Vital Signs Date Time Temp Pulse Resp B/P (MAP) Pulse Ox O2 Delivery O2 Flow Rate FiO2 06/26/17 05:00 94 18 112/73 (86) 97 Room Air 06/25/17 22:33 98.0 Orders Orders Complete Blood Count With Diff (06/25/17 23:24) Comprehensive Metabolic Panel (06/25/17 23:24) Ckmb (Isoenzyme) Profile (06/25/17 23:24) Troponin I (06/25/17 23:24) Lipase (06/25/17 23:24) Chest, Single Ap (06/25/17 23:24) Pantoprazole Inj (Protonix Inj) (06/26/17 00:00) Morphine Inj (Morphine Inj) (06/26/17 00:00) Aspirin Chew (Aspirin Chew) (06/26/17 00:00) CKMB (06/25/17 23:45) CKMB% (06/25/17 23:45) Troponin I (06/26/17 02:58) Admit Order (Ed Use Only) (06/26/17 05:33) Labs Laboratory Tests Test 06/25/17 23:45 06/26/17 02:52 White Blood Count 5.1 TH/MM3 Red Blood Count 4.42 MIL/MM3 Hemoglobin 11.9 GM/DL Hematocrit 36.2 % Mean Corpuscular Volume 82.0 FL Mean Corpuscular Hemoglobin 26.8 PG Mean Corpuscular Hemoglobin Concent 32.7 % Red Cell Distribution Width 22.0 % Platelet Count 62 TH/MM3 Mean Platelet Volume 9.4 FL Neutrophils (%) (Auto) 47.4 % Lymphocytes (%) (Auto) 40.0 % Monocytes (%) (Auto) 9.4 % Eosinophils (%) (Auto) 2.1 % Basophils (%) (Auto) 1.1 % Neutrophils # (Auto) 2.4 TH/MM3 Lymphocytes # (Auto) 2.0 TH/MM3 Monocytes # (Auto) 0.5 TH/MM3 Eosinophils # (Auto) 0.1 TH/MM3 Basophils # (Auto) 0.1 TH/MM3 CBC Comment AUTO DIFF Differential Comment AUTO DIFF CONFIRMED Platelet Estimate LOW Platelet Morphology Comment ENLARGED Blood Urea Nitrogen 4 MG/DL Creatinine 1.01 MG/DL Random Glucose 96 MG/DL Total Protein 8.0 GM/DL Albumin 3.5 GM/DL Calcium Level 8.1 MG/DL Alkaline Phosphatase 226 U/L Aspartate Amino Transf (AST/SGOT) 79 U/L Alanine Aminotransferase (ALT/SGPT) 43 U/L Total Bilirubin 0.3 MG/DL Sodium Level 136 MEQ/L Potassium Level 3.5 MEQ/L Chloride Level 103 MEQ/L Carbon Dioxide Level 24.4 MEQ/L Anion Gap 9 MEQ/L Estimat Glomerular Filtration Rate 77 ML/MIN Total Creatine Kinase 205 U/L Creatine Kinase MB 4.1 NG/ML Troponin I LESS THAN 0.02 NG/ML LESS THAN 0.02 NG/ML Lipase 250 U/L MDM Medical Decision Making Medical Screen Exam Complete: Yes Emergency Medical Condition: Yes Differential Diagnosis chest pain of GERD vs costocondritis vs PNA vs sternotomy wire pain Narrative Course trop negative times 2 but pt still having CP and has extensive CAD history will admit CP center for further monitoring and possible stress test Diagnosis Primary Impression: Chest pain Qualified Codes: R07.9 - Chest pain, unspecified Patient Instructions: Chest Pain (ED), General Instructions Disposition: 01 DISCHARGE HOME Condition: Good Hakan Casanova MD Jun 25, 2017 23:17
--- NOTE | 2017-06-25 23:48 | RADRPT ---
EXAM DATE/TIME: 06/25/2017 23:34 [facility] COMPARISON: CHEST SINGLE AP, March 17, 2017, 19:48. INDICATIONS : Chest pain and short of breath. MEDICAL HISTORY : Congestive heart failure. Myocardial infarction. Hypercholesterolemia. Cataracts.Epilepsy. Liver dise ase. Anticoagulant therapy. Afib. Coronary artery disease. Hypertension. COPD. Diabetes. SURGICAL HISTORY : CABG. Coronary artery stent. Abdominal aortic aneurysm repair. Internal defibrillator. Cardiac ablati on. ENCOUNTER: Initial ACUITY: 1 day PAIN SCORE: 10/10 LOCATION: Bilateral chest FINDINGS: The cardiac silhouette is enlarged in transverse diameter. The lungs are free of acute parenchymal op acity. No effusions are identified. Median sternotomy wires are present. A defibrillator device is in place via a right sided approach. CONCLUSION: 1. Cardiomegaly. No acute pulmonary disease. Anup Sal MD on June 25, 2017 at 23:45 Board Certified Radiologist. This report was verified electronically.
[2017-06-26] VITALS (12 sets, daily range): BP systolic 112–137; BP diastolic 63–80; PULSE 65–97; RESP 16–18; TEMP 97.6–98.7; O2SAT 95–97
[2017-06-26] MEDS ORDERED: ASPIRIN 81 MG CHEW TAB CHEW ONE
[2017-06-26] MEDS ORDERED: MORPHINE SULFATE 2 MG/ML SYRINGE IV PUSH ONE
[2017-06-26] MEDS ORDERED: PANTOPRAZOLE SODIUM 40 MG VIAL IV PUSH ONE
[2017-06-26 00:05] LABS: AUTOMATED NEUTROPHIL # 2.4 TH/MM3 (1.8-7.7); BASOPHIL # 0.1 TH/MM3 (0-0.2); BASOPHIL % 1.1 % (0.0-2.0); EOSINOPHIL # 0.1 TH/MM3 (0-0.4); EOSINOPHIL % 2.1 % (0.0-4.0); HEMATOCRIT 36.2 % (39.0-51.0); HEMOGLOBIN 11.9 GM/DL (13.0-17.0); MEAN CORPUSCULAR HEMOGLOBIN 26.8 PG (27.0-34.0); MEAN CORPUSCULAR HGB CONC 32.7 % (32.0-36.0); MEAN PLATELET VOLUME 9.4 FL (7.0-11.0); MONO % 9.4 % (0.0-8.0); MONOCYTE # 0.5 TH/MM3 (0-0.9); NEUT % 47.4 % (16.0-70.0); PLATELET COUNT 62 TH/MM3 (150-450); RED BLOOD COUNT 4.42 MIL/MM3 (4.50-5.90); WHITE BLOOD COUNT 5.1 TH/MM3 (4.0-11.0)
[2017-06-26 00:20] LABS: ALBUMIN 3.5 GM/DL (3.4-5.0); AST (GOT) 79 U/L (15-37); BICARBONATE 24.4 MEQ/L (21.0-32.0); BLOOD UREA NITROGEN 4 MG/DL (7-18); CALCIUM 8.1 MG/DL (8.5-10.1); CHLORIDE 103 MEQ/L (98-107); CREATININE 1.01 MG/DL (0.60-1.30); GLOMERULAR FILTRATION RATE 77 ML/MIN (>89); GLUCOSE,RANDOM 96 MG/DL (74-106); SODIUM (NA) 136 MEQ/L (136-145)
[2017-06-26 00:21] LABS: ALT (GPT) 43 U/L (12-78)
[2017-06-26 00:25] LABS: ALKALINE PHOSPHATASE 226 U/L (45-117); TOTAL BILIRUBIN ADULT 0.3 MG/DL (0.2-1.0); TROPONIN I LESS THAN 0.02 NG/ML (0.02-0.05)
[2017-06-26 09:29] LABS: TROPONIN I LESS THAN 0.02 NG/ML (0.02-0.05)
[2017-06-26] MEDS ORDERED: GLUCAGON 1 MG/ML VIAL OTHER PRN (10:45)
[2017-06-26] MEDS ORDERED: DEXTROSE 50% IN WATER 50 ML VIAL(D50) IV PUSH PRN (10:45)
[2017-06-26] MEDS ORDERED: ONDANSETRON HCL 4 MG/2 ML VIAL IV PUSH PRN (10:45)
--- NOTE | 2017-06-26 10:57 | HHI.HP ---
[facility] Patricia James MD Admission Diagnosis CHEST PAIN Diagnoses: (1) Chest pain Diagnosis: Principal Chief Complaint: chest pain Travel History International Travel<30 Days: No Contact w/Intl Traveler <30 Da: No Traveled to Known Affected Are: No History of Present Illness patient is a 57 y/o male with history of CAD- s/p CABG, hypertension, diabetes, atrial fibrillation, known to me from previous admission, who presented to ER with chest pain. he was admitted to this hospital few months ago for the same complaint. he underwent cardiac cath and was found to have critical left main artery disease. CT surgery consulted and due to being a high risk patient , CT surgery was in the process of transferring the patient to [facility]- however the patient declined and went home. he says that he's had chest pain on and off since then but it seems that it's more severe now and lasts longer. chest pain is midsternal with some radiation to the left chest wall. it's been associated with some nausea. Review of Systems Constitutional: DENIES: Fever, Weight loss, Chills, Night Sweats Eyes: DENIES: Blurred vision, Diplopia, Vision loss, Double Vision Ears, nose, mouth, throat: DENIES: Tinnitus, Vertigo, Throat pain, Epistaxis Respiratory: DENIES: Apneas, Cough, Snoring, Wheezing, Hemoptysis, Sputum production, Shortness of breath Cardiovascular: COMPLAINS OF: Chest pain, DENIES: Palpitations, Syncope, Dyspnea on Exertion, PND, Lower Extremity Edema, Orthopnea, Claudication Gastrointestinal: COMPLAINS OF: Nausea, DENIES: Abdominal pain, Black stools, Bloody stools, Constipation, Diarrhea, Vomiting, Difficulty Swallowing, Anorexia Genitourinary: DENIES: Urinary frequency, Urgency, Hematuria, Dysuria Musculoskeletal: DENIES: Joint pain, Muscle aches, Stiffness, Joint Swelling Integumentary: DENIES: Rash Neurologic: DENIES: Abnormal gait, Headache, Localized weakness, Paresthesias, Seizures, Speech Problems, Tremor, Poor Balance Psychiatric: DENIES: Anxiety, Confusion, Mood changes, Depression, Hallucinations, Agitation, Suicidal Ideation, Homicidal Ideation, Delusions Past Family Social History Past Medical History CAD with bypass age 36. Diabetes, hypertension, hyperlipidemia, cardiomyopathy and has defibrillator, atrial fibrillation status post ablation alcohol abuse, pancreatitis, tobacco abuse. Past Surgical History Past Surgical History CABG. Cardiac catheterizations. Endoscopies and colonoscopy. Defibrillator. Reported Medications Morphine IR (Morphine Sulfate) 15 Mg Tab 15 Mg PO Q4H PRN Aspirin DR (Aspirin) 81 Mg Tabdr 81 Mg PO DAILY Ventolin Hfa 18 GM Inh (Albuterol Sulfate) 90 Mcg/Act Aer 2 Puff INH Q4H PRN Xarelto (Rivaroxaban) 20 Mg Tab 20 Mg PO DAILY Blood Glucose System Donny (Blood Glucose Monitoring Suppl) 1 Kit Kit Kit Glipizide 5 Mg Tab 5 Mg PO DAILY Take 30 minutes before a meal Reported Metoprolol Succinate ER 24 HR (Metoprolol Succinate) 50 Mg Tab 50 Mg PO DAILY Gabapentin 100 Mg Cap 100 Mg PO TID Levetiracetam 1,000 Mg Tab 1,000 Mg PO BID Simvastatin 10 Mg Tab 10 Mg PO DAILY Allergies: Coded Allergies: cefazolin (Unverified Allergy, Severe, Hives, 06/25/17) nitroglycerin (Unverified Adverse Reaction, Intermediate, Nausea/Vomiting , 06/25/17) MD aware. aspirin (Verified Adverse Reaction, Unknown, gi upset, 06/25/17) MD aware Active Ordered Medications Inpatient Medications Aspirin (Aspirin Chew) 162 mg ONCE ONCE CHEW Last administered on 06/26/17at 00 :03; Start 06/26/17 at 00:00; Stop 06/26/17 at 00:01; Status DC Morphine Sulfate (Morphine Inj) 2 mg ONCE ONCE IV PUSH Last administered on at 00:04; Start 06/26/17 at 00:00; Stop 06/26/17 at 00:01; Status DC Pantoprazole Sodium (Protonix Inj) 40 mg ONCE ONCE IV PUSH Last administered on 06/26/17at 00:04; Start 06/26/17 at 00:00; Stop 06/26/17 at 00:01; Status DC Sodium Chloride (NS Flush) 2 ml BID IV FLUSH ; Start 06/26/17 at 09:00 Social History smokes less than half a pack a day. doesn't drink. Physical Exam Vital Signs Vital Signs Date Time Temp Pulse Resp B/P (MAP) Pulse Ox O2 Delivery O2 Flow Rate FiO2 06/26/17 08:46 98.7 80 16 130/72 (91) 95 06/26/17 07:02 76 18 127/80 (96) 95 Room Air 06/26/17 05:00 94 18 112/73 (86) 97 Room Air 06/25/17 22:33 98.0 74 17 112/70 (84) 98 Physical Exam GENERAL: This is a well-nourished, well-developed patient, in no apparent distress. SKIN: No rashes, ecchymoses or lesions. Cool and dry. HEAD: Atraumatic. Normocephalic. No temporal or scalp tenderness. EYES: Pupils equal round and reactive. Extraocular motions intact. No scleral icterus. No injection or drainage. ENT: Nose without bleeding, purulent drainage or septal hematoma. Throat without erythema, tonsillar hypertrophy or exudate. Uvula midline. Airway patent. NECK: Trachea midline. No JVD or lymphadenopathy. Supple, nontender, no meningeal signs. CARDIOVASCULAR: Regular rate and rhythm without murmurs, gallops, or rubs. RESPIRATORY: Clear to auscultation. Breath sounds equal bilaterally. No wheezes , rales, or rhonchi. GASTROINTESTINAL: Abdomen soft, non-tender, nondistended. No hepato-splenomegaly , or palpable masses. No guarding. MUSCULOSKELETAL: Extremities without clubbing, cyanosis, or edema. No joint tenderness, effusion, or edema noted. No calf tenderness. Negative Homans sign bilaterally. NEUROLOGICAL: Awake and alert. Cranial nerves II through XII intact. Motor and sensory grossly within normal limits. Five out of 5 muscle strength in all muscle groups. Normal speech. Laboratory Laboratory Tests Test 06/25/17 23:45 06/26/17 02:52 06/26/17 07:17 06/26/17 10:24 White Blood Count 5.1 Red Blood Count 4.42 Hemoglobin 11.9 Hematocrit 36.2 Mean Corpuscular Volume 82.0 Mean Corpuscular Hemoglobin 26.8 Mean Corpuscular Hemoglobin Concent 32.7 Red Cell Distribution Width 22.0 Platelet Count 62 Mean Platelet Volume 9.4 Neutrophils (%) (Auto) 47.4 Lymphocytes (%) (Auto) 40.0 Monocytes (%) (Auto) 9.4 Eosinophils (%) (Auto) 2.1 Basophils (%) (Auto) 1.1 Neutrophils # (Auto) 2.4 Lymphocytes # (Auto) 2.0 Monocytes # (Auto) 0.5 Eosinophils # (Auto) 0.1 Basophils # (Auto) 0.1 CBC Comment AUTO DIFF Differential Comment AUTO DIFF CONFIRMED Platelet Estimate LOW Platelet Morphology Comment ENLARGED Blood Urea Nitrogen 4 Creatinine 1.01 Random Glucose 96 Total Protein 8.0 Albumin 3.5 Calcium Level 8.1 Alkaline Phosphatase 226 Aspartate Amino Transf (AST/SGOT) 79 Alanine Aminotransferase (ALT/SGPT) 43 Total Bilirubin 0.3 Sodium Level 136 Potassium Level 3.5 Chloride Level 103 Carbon Dioxide Level 24.4 Anion Gap 9 Estimat Glomerular Filtration Rate 77 Total Creatine Kinase 205 154 Creatine Kinase MB 4.1 2.9 Troponin I LESS THAN 0.02 LESS THAN 0.02 LESS THAN 0.02 Lipase 250 Result Diagram: 06/25/17 2345 06/25/17 234 Imaging Last Impressions Chest X-Ray 06/25/172323 Signed Impressions: Service Date/Time: Sunday, June 25, 2017 23:34 - CONCLUSION: 1. Cardiomegaly. No acute pulmonary disease. Anup Sal MD EKG; sinus rhythm with T wave inversion in lateral leads. Caprini VTE Risk Assessment Caprini VTE Risk Assessment: Mod/High Risk (score >= 2) Caprini Risk Assessment Model Point Value = 1 Point Value = 2 Point Value = 3 Point Value = 5 Age 41-60 Minor surgery BMI > 25 kg/m2 Swollen legs Varicose veins or History of unexplained or recurrent spontaneous Oral contraceptives or hormone replacement Sepsis (< 1 month) Serious lung disease, including pneumonia (< 1 month) Abnormal pulmonary function Acute myocardial infarction Congestive heart failure (< 1 month) History of inflammatory bowel disease Medical patient at bed rest Age 61-74 Arthroscopic surgery Major open surgery (> 45 min) Laparoscopic surgery (> 45 min) Malignancy Confined to bed (> 72 hours) Immobilizing plaster cast Central venous access Age >= 75 History of VTE Family history of VTE Factor V Leiden Prothrombin [id number] Lupus anticoagulant Anticardiolipin antibodies Elevated serum homocysteine Heparin-induced thrombocytopenia Other congenital or acquired thrombophilia Stroke (< 1 month) Elective arthroplasty Hip, pelvis, or leg fracture Acute spinal cord injury (< 1 month) Prophylaxis Regimen Total Risk Factor Score Risk Level Prophylaxis Regimen 0-1 Low Early ambulation 2 Moderate Order ONE of the following: *Sequential Compression Device (SCD) *Heparin 5000 units SQ BID 3-4 Higher Order ONE of the following medications: *Heparin 5000 units SQ TID *Enoxaparin/Lovenox 40 mg SQ daily (WT < 150 kg, CrCl > 30 mL/min) *Enoxaparin/Lovenox 30 mg SQ daily (WT < 150 kg, CrCl > 10-29 mL/min) *Enoxaparin/Lovenox 30 mg SQ BID (WT < 150 kg, CrCl > 30 mL/min) AND/OR *Sequential Compression Device (SCD) 5 or more Highest Order ONE of the following medications: *Heparin 5000 units SQ TID (Preferred with Epidurals) *Enoxaparin/Lovenox 40 mg SQ daily (WT < 150 kg, CrCl > 30 mL/min) *Enoxaparin/Lovenox 30 mg SQ daily (WT < 150 kg, CrCl > 10-29 mL/min) *Enoxaparin/Lovenox 30 mg SQ BID (WT < 150 kg, CrCl > 30 mL/min) AND *Sequential Compression Device (SCD) Assessment and Plan Assessment and Plan A/P - chest pain with history of CAD- s/p CABG had a cardiac cath few months ago with critical left main disease- serial troponin negative- continue aspirin, BB and statin- will consult cardiology. -hypertension/ dyslipidemia; resume home meds. -atrial fibrillation; resume BB - Xarelto on hold till cardiology evaluation. -diabetes mellitus; accu-check with SSI- hold oral hypoglycemics for now. -thrombocytopenia- chronic- will monitor. -DVT prophylaxis; resume Xarelto after cardiology evaluation. Discussed Condition With the patient and RN. Problem Qualifiers (1) Chest pain: Qualified Codes: R07.9 - Chest pain, unspecified Graciela Rosenbaum MD Jun 26, 2017 10:57
[2017-06-26 11:00] LABS: TROPONIN I LESS THAN 0.02 NG/ML (0.02-0.05)
[2017-06-26] MEDS ORDERED: ALBUTEROL SULFATE 90 MCG/ACT HFA 8 GM INHALER INH PRN (11:00)
[2017-06-26] MEDS: MORPHINE SULFATE 2 MG/ML SYRINGE IV PUSH PRN ×2 (11:19→12:38)
[2017-06-26] MEDS: SODIUM CHLORIDE 0.9% FLUSH 10 ML FLUSH IV FLUSH SCH ×2 (11:19→22:05)
--- NOTE | 2017-06-26 11:57 | EKG ---
Date Performed: 06/25/2017 Time Performed: 22:38:14 PTAGE: 57 years EKG: Sinus rhythm POSSIBLE LEFT ATRIAL ENLARGEMENT MODERATE INTRAVENTRICULAR CONDUCTION DELAY ST DEVIATION AND MODERAT E T-WAVE ABNORMALITY, CONSIDER LATERAL ISCHEMIA ST DEVIATION AND MODERATE T-WAVE ABNORMALITY, CONSIDE R INFERIOR ISCHEMIA ABNORMAL ECG PREVIOUS TRACING : 03/18/2017 01.49 Compared to previous tracing, ST T wave changes are more pr ominant. DOCTOR: Stephen Montiel Interpretating Date/Time 06/26/2017 11:56:09
[2017-06-26] MEDS: INSULIN ASPART SUPPLEMENTAL SCALE SQ SCH ×3 (12:10→21:44)
[2017-06-26] MEDS: GABAPENTIN 100 MG CAP PO SCH ×2 (12:17→17:32)
--- NOTE | 2017-06-26 12:30 | MB ---
cc: Iona Zambrano MD DATE: 06/26/2017 REASON FOR CONSULTATION: Chest pain. HISTORY OF PRESENT ILLNESS: Mr. Robertson is a 57-year-old man who does have a remote history of CABG and stenting. He was seen earlier in the year and underwent a catheterization by Dr. Coats. He was found to need a redo CABG with mitral valve repair/replacement. The patient was high risk secondary to thrombocytopenia. He underwent evaluation here for that, which showed that the thrombocytopenia was likely secondary to fatty liver, hypersplenism, bone marrow suppression from alcohol and possible drug effect. The patient indicates to me that he never "declined surgery and just needed time to think about it." He presents now with an episode of back and leg pain, which he reports is his cardiac pain. Cardiology was requested to assist with his management. PAST MEDICAL HISTORY: Significant for CAD with CABG at age 36, diabetes, hypertension, hyperlipidemia, cardiomyopathy with a known EF of 30%. He does have an ICD. He has atrial fibrillation and is status post ablation. He has a history of alcohol abuse, pancreatitis and ongoing tobacco abuse. CURRENT MEDICATIONS: Per the record. ALLERGIES: CEFAZOLIN, NITRO, AND ASPIRIN. SOCIAL HISTORY: The patient does continue to smoke 1/2 pack a day. He reports that he drinks several times a week. REVIEW OF SYSTEMS: Except as mentioned in the HPI, all 12 systems are negative. PHYSICAL EXAMINATION: VITAL SIGNS: Temperature 98.7, heart rate 80, respirations 16, blood pressure 130/72. GENERAL: He is a well-appearing man, who is in no apparent distress. NECK: Free from JVD. LUNGS: Decreased and clear to auscultation. CARDIOVASCULAR: He has a regular rhythm. There is a III/ systolic murmur. No rubs or gallops are appreciated. ABDOMEN: Soft. EXTREMITIES: Free from edema. LABORATORY VALUES: Significant for a hemoglobin of 11.9. His platelet count is 62, creatinine 1.01, and serial troponins of less than 0.02. EKG shows sinus rhythm with lateral T-wave inversions and ST depression. IMPRESSION AND RECOMNMENDATIONS: Chest pain -- The patient has declined any nitroglycerin. His enzymes have been negative. He has been placed on aspirin by the primary team. As his Xarelto is being held currently, I would consider Lovenox after the 24-hour flavio for anticoagulation. At this point, there is no need for a cardiac catheterization. The patient is still thinking about a redo procedure, though he says at this point he feels like he has no choice. Of note, I would seek a tertiary referral for a high risk procedure rather than a local transfer. CT surgery will have to again consult and determine if they feel it is appropriate to do his surgery here, though I suspect not. MD COMFORT Toribio/JAMES , 11:54 AM , 12:29 PM
[2017-06-26] MEDS: SODIUM CHLORIDE 0.9% FLUSH 10 ML FLUSH IV FLUSH PRN ×3 (12:38→18:57)
[2017-06-26] MEDS: MORPHINE SULFATE 4 MG/ML INJ IV PUSH PRN ×3 (15:44→22:06)
[2017-06-26] MEDS: levETIRAcetam 500 MG TAB PO SCH (22:05)
[2017-06-27] VITALS (12 sets, daily range): BP systolic 81–118; BP diastolic 50–77; PULSE 57–82; RESP 16–18; TEMP 97.9–98.6; O2SAT 92–97
[2017-06-27] MEDS: MORPHINE SULFATE 4 MG/ML INJ IV PUSH PRN ×7 (01:15→23:20)
[2017-06-27] MEDS: INSULIN ASPART SUPPLEMENTAL SCALE SQ SCH ×4 (08:08→21:18)
[2017-06-27] MEDS: SODIUM CHLORIDE 0.9% FLUSH 10 ML FLUSH IV FLUSH SCH ×2 (08:09→20:04)
[2017-06-27] MEDS: LISINOPRIL 5 MG TAB PO SCH (08:09)
[2017-06-27] MEDS: GABAPENTIN 100 MG CAP PO SCH ×3 (08:09→17:20)
[2017-06-27] MEDS: METOPROLOL SUCCINATE 50 MG EXTENDED RELEASE TAB PO SCH (08:09)
[2017-06-27] MEDS: PRAVASTATIN SOD 20 MG TAB PO SCH (08:09)
[2017-06-27] MEDS: levETIRAcetam 500 MG TAB PO SCH ×2 (08:09→20:03)
[2017-06-27] MEDS: ASPIRIN EC 81 MG TABEC PO SCH (08:10)
--- NOTE | 2017-06-27 08:50 | HHI.PR ---
Subjective Remarks in no acute distress. with on and off chest pain. awaiting CT surgery evaluation. Objective Vitals Vital Signs Date Time Temp Pulse Resp B/P (MAP) Pulse Ox O2 Delivery O2 Flow Rate FiO2 06/27/17 08:04 98.6 80 16 113/71 (85) 95 06/27/17 04:29 98.1 78 18 118/64 (82) 92 06/27/17 04:08 68 06/27/17 00:15 60 06/26/17 23:37 98.0 74 18 137/71 (93) 95 06/26/17 21:55 97 06/26/17 21:40 98.4 68 18 119/68 (85) 95 06/26/17 20:20 65 06/26/17 15:25 73 06/26/17 15:23 97.8 97 16 132/63 (86) 97 06/26/17 12:24 94 06/26/17 11:20 97.6 90 18 130/68 (88) 96 06/26/17 10:46 89 06/26/17 08:46 98.7 80 16 130/72 (91) 95 Result Diagram: 06/25/17 2345 06/25/17 2345 Imaging Last Impressions Chest X-Ray 06/25/17 2324 Signed Impressions: Service Date/Time: Sunday, June 25, 2017 23:34 - CONCLUSION: 1. Cardiomegaly. No acute pulmonary disease. Anup Sal MD Objective Remarks GENERAL: This is a well-nourished, well-developed patient, in no apparent distress. CARDIOVASCULAR: Regular rate and regular rhythm without murmurs, gallops, or rubs. RESPIRATORY: Clear to auscultation. Breath sounds equal bilaterally. No wheezes , rales, or rhonchi. GASTROINTESTINAL: Abdomen soft, non-tender, nondistended. Normal, active bowel sounds MUSCULOSKELETAL: Extremities without clubbing, cyanosis, or edema. NEURO: Alert & Oriented x4 to person, place, time, situation. Moves all ext x4 Medications and IVs Inpatient Medications Albuterol Sulfate (Proair Hfa Inh) 2 puff Q4H PRN INH SHORTNESS OF BREATH Last administered on 06/27/17at 01:14; Start 06/26/17 at 11:00 Aspirin (Aspirin Chew) 162 mg ONCE ONCE CHEW Last administered on 06/26/17at 00 :03; Start 06/26/17 at 00:00; Stop 06/26/17 at 00:01; Status DC Aspirin (Ecotrin Ec) 81 mg DAILY PO Last administered on 06/27/17at 08:10; Start 06/27/17 at 09:00 Dextrose (D50w (Vial) Inj) 50 ml UNSCH PRN IV PUSH HYPOGLYCEMIA-SEE COMMENTS; Start 06/26/17 at 10:45 Gabapentin (Neurontin) 100 mg TID PO Last administered on 06/27/17at 08:09; Start 06/26/17 at 13:00 Glucagon (Glucagon Inj) 1 mg UNSCH PRN OTHER HYPOGLYCEMIA-SEE COMMENTS; Start 06/26/17 at 10:45 Insulin Aspart (NovoLOG SUPPLEMENTAL SCALE) 1 ACHS SLIDING SCALE SQ ; Start at 12:00 Levetriacetam (Keppra) 1,000 mg BID PO Last administered on 06/27/17at 08:09; Start 06/26/17 at 21:00 Lisinopril (Prinivil) 2.5 mg DAILY PO Last administered on 06/27/17at 08:09; Start 06/27/17 at 09:00 Metoprolol Succinate (Toprol Xl) 50 mg DAILY PO Last administered on 06/27/17at 08:09; Start 06/27/17 at 09:00 Morphine Sulfate (Morphine Inj) 4 mg Q3H PRN IV PUSH PAIN SCALE 4 TO 10 Last administered on 06/27/17at 08:09; Start 06/26/17 at 12:00 Ondansetron HCl (Zofran Inj) 4 mg Q8HR PRN IV PUSH NAUSEA Last administered on 06/26/17at 11:20; Start 06/26/17 at 10:45 Pantoprazole Sodium (Protonix Inj) 40 mg ONCE ONCE IV PUSH Last administered on 06/26/17at 00:04; Start 06/26/17 at 00:00; Stop 06/26/17 at 00:01; Status DC Pravastatin Sodium (Pravachol) 20 mg DAILY PO Last administered on 06/27/17at 08 :09; Start 06/27/17 at 09:00 Sodium Chloride (NS Flush) 2 ml BID IV FLUSH Last administered on 06/27/17at 08: 09; Start 06/26/17 at 09:00 A/P Problem List: (1) Chest pain ICD Code: R07.9 - Chest pain, unspecified Status: Resolved Assessment and Plan - chest pain with history of CAD- s/p CABG had a cardiac cath few months ago with critical left main disease- serial troponin negative- continue aspirin, BB and statin- cardiology consult appreciated; awaiting CT surgery evaluation. -hypertension/ dyslipidemia; resumed home meds. -atrial fibrillation; resume BB - Xarelto on hold- -diabetes mellitus; accu-check with SSI- hold oral hypoglycemics for now. -thrombocytopenia- chronic- will monitor. -DVT prophylaxis; resume Xarelto after CT surgery evaluation. Discharge Planning awaiting CT surgery evaluation. Problem Qualifiers (1) Chest pain: Qualified Codes: R07.9 - Chest pain, unspecified Graciela Rosenbaum MD Jun 27, 2017 08:50
--- NOTE | 2017-06-27 09:07 | PD.CARD.PN ---
Subjective Subjective Remarks pt with intermittent CP Objective Medications Current Medications Medications (Trade) Dose Ordered Sig/Viky Route Start Time Stop Time Status Last Admin (NS Flush) 2 ml UNSCH PRN IV FLUSH 06/26/17 07:00 06/26/17 18:57 (NS Flush) 2 ml BID IV FLUSH 06/26/17 09:00 06/27/17 08:09 (D50w (Vial) Inj) 50 ml UNSCH PRN IV PUSH 06/26/17 10:45 (Glucagon Inj) 1 mg UNSCH PRN OTHER 06/26/17 10:45 (NovoLOG SUPPLEMENTAL SCALE) 1 ACHS SLIDING SCALE SQ 06/26/17 12:00 (Morphine Inj) 2 mg Q4H PRN IV PUSH 06/26/17 10:45 06/26/17 12:38 (Zofran Inj) 4 mg Q8HR PRN IV PUSH 06/26/17 10:45 06/26/17 11:20 (Proair Hfa Inh) 2 puff Q4H PRN INH 06/26/17 11:00 06/27/17 01:14 (Ecotrin Ec) 81 mg DAILY PO 06/27/17 09:00 06/27/17 08:10 (Neurontin) 100 mg TID PO 06/26/17 13:00 06/27/17 08:09 (Keppra) 1,000 mg BID PO 06/26/17 21:00 06/27/17 08:09 (Toprol Xl) 50 mg DAILY PO 06/27/17 09:00 06/27/17 08:09 (Pravachol) 20 mg DAILY PO 06/27/17 09:00 06/27/17 08:09 (Morphine Inj) 4 mg Q3H PRN IV PUSH 06/26/17 12:00 06/27/17 08:09 (Prinivil) 2.5 mg DAILY PO 06/27/17 09:00 06/27/17 08:09 Vital Signs / I&O Vital Signs Date Time Temp Pulse Resp B/P (MAP) Pulse Ox O2 Delivery O2 Flow Rate FiO2 06/27/17 08:04 98.6 80 16 113/71 (85) 95 06/27/17 04:29 98.1 78 18 118/64 (82) 92 06/27/17 04:08 68 06/27/17 00:15 60 06/26/17 23:37 98.0 74 18 137/71 (93) 95 06/26/17 21:55 97 06/26/17 21:40 98.4 68 18 119/68 (85) 95 06/26/17 20:20 65 06/26/17 15:25 73 06/26/17 15:23 97.8 97 16 132/63 (86) 97 06/26/17 12:24 94 06/26/17 11:20 97.6 90 18 130/68 (88) 96 06/26/17 10:46 89 Physical Exam GENERAL: Well developed, well nourished. No acute distress. HEENT: Jugular venous pressure is normal. CHEST: Lungs clear to auscultation bilaterally. Unlabored respiratory effort. CARDIAC: Regular rate and rhythm without S3, S4, or murmur. ABDOMEN: Soft, nontender, no hepatosplenomegaly. Bowel sounds present. EXTREMITIES: No clubbing, cyanosis, or edema. Laboratory Laboratory Tests Test 06/26/17 10:24 Total Creatine Kinase 143 U/L Creatine Kinase MB 2.4 NG/ML Troponin I LESS THAN 0.02 NG/ML Imaging Last 72 hours Impressions Chest X-Ray 06/25/17 1541 Signed Impressions: Service Date/Time: Sunday, June 25, 2017 23:34 - CONCLUSION: 1. Cardiomegaly. No acute pulmonary disease. Anup Sal MD Assessment and Plan Assessment and Plan CP- enzymes neg for IL -recent cath and know CAD requiring redo...pt agreeable and awaiting CV surg evaluation Ischemic cardiomyopathy- on BB and KELBY thrombocytopenia Iona Zambrano MD Jun 27, 2017 09:07
--- NOTE | 2017-06-27 12:23 | PD.CAR.PN ---
CVT Progress Note Subjective/Hospital Course: Pt well known to Dr. Ramírez from previous admission. Will likely need transfer to tertiary care center for reoperative sternotomy with CABG and MVR. Dr. Ramírez to discuss it further with the patient in am. Thanks. Objective: Vital Signs Date Time Temp Pulse Resp B/P (MAP) Pulse Ox O2 Delivery O2 Flow Rate FiO2 06/27/17 11:54 62 06/27/17 11:32 98.0 82 18 81/50 (60) 93 06/27/17 08:07 78 06/27/17 08:04 98.6 80 16 113/71 (85) 95 06/27/17 04:29 98.1 78 18 118/64 (82) 92 06/27/17 04:08 68 06/27/17 00:15 60 06/26/17 23:37 98.0 74 18 137/71 (93) 95 06/26/17 21:55 97 06/26/17 21:40 98.4 68 18 119/68 (85) 95 06/26/17 20:20 65 06/26/17 15:25 73 06/26/17 15:23 97.8 97 16 132/63 (86) 97 06/26/17 12:24 94 Result Diagram: 06/25/17 2345 06/25/17 2345 Talya Fox MD Jun 27, 2017 12:22
[2017-06-27] MEDS: SODIUM CHLORIDE 0.9% FLUSH 10 ML FLUSH IV FLUSH PRN ×2 (12:35→16:14)
--- NOTE | 2017-06-27 13:21 | EKG ---
Date Performed: 06/26/2017 Time Performed: 08:40:08 PTAGE: 57 years EKG: Sinus rhythm POSSIBLE LEFT ATRIAL ENLARGEMENT ST DEVIATION AND MODERATE T-WAVE ABNORMALITY, CONSIDER LATERAL ISCH EMIA ABNORMAL ECG PREVIOUS TRACING : 06/25/2017 22.38 DOCTOR: Stephen Montiel Interpretating Date/Time 06/27/2017 13:21:25
[2017-06-28] VITALS (11 sets, daily range): BP systolic 101–111; BP diastolic 55–67; PULSE 59–80; RESP 18; TEMP 97.9–98.6; O2SAT 94–98
[2017-06-28] MEDS: MORPHINE SULFATE 4 MG/ML INJ IV PUSH PRN ×6 (02:34→23:36)
[2017-06-28] MEDS: INSULIN ASPART SUPPLEMENTAL SCALE SQ SCH ×4 (08:00→21:13)
--- NOTE | 2017-06-28 09:07 | PD.CARD.PN ---
Subjective Subjective Remarks pt with intermittent CP, relieved by NTG Objective Medications Current Medications Medications (Trade) Dose Ordered Sig/Viky Route Start Time Stop Time Status Last Admin (NS Flush) 2 ml UNSCH PRN IV FLUSH 06/26/17 07:00 06/27/17 16:14 (NS Flush) 2 ml BID IV FLUSH 06/26/17 09:00 06/27/17 20:04 (D50w (Vial) Inj) 50 ml UNSCH PRN IV PUSH 06/26/17 10:45 (Glucagon Inj) 1 mg UNSCH PRN OTHER 06/26/17 10:45 (NovoLOG SUPPLEMENTAL SCALE) 1 ACHS SLIDING SCALE SQ 06/26/17 12:00 (Morphine Inj) 2 mg Q4H PRN IV PUSH 06/26/17 10:45 06/26/17 12:38 (Zofran Inj) 4 mg Q8HR PRN IV PUSH 06/26/17 10:45 06/26/17 11:20 (Proair Hfa Inh) 2 puff Q4H PRN INH 06/26/17 11:00 06/27/17 01:14 (Ecotrin Ec) 81 mg DAILY PO 06/27/17 09:00 06/27/17 08:10 (Neurontin) 100 mg TID PO 06/26/17 13:00 06/27/17 17:20 (Keppra) 1,000 mg BID PO 06/26/17 21:00 06/27/17 20:03 (Toprol Xl) 50 mg DAILY PO 06/27/17 09:00 06/27/17 08:09 (Pravachol) 20 mg DAILY PO 06/27/17 09:00 06/27/17 08:09 (Morphine Inj) 4 mg Q3H PRN IV PUSH 06/26/17 12:00 06/28/17 05:36 (Prinivil) 2.5 mg DAILY PO 06/27/17 09:00 06/27/17 08:09 Vital Signs / I&O Vital Signs Date Time Temp Pulse Resp B/P (MAP) Pulse Ox O2 Delivery O2 Flow Rate FiO2 06/28/17 08:00 97.9 80 18 110/67 (81) 94 06/28/17 07:53 95 21 06/28/17 04:57 98.2 60 18 101/55 (70) 95 06/28/17 04:00 60 06/28/17 00:47 62 06/28/17 00:06 98.0 62 18 111/66 (81) 95 06/27/17 20:44 98.0 61 18 105/62 (76) 97 06/27/17 20:15 57 06/27/17 15:59 97.9 72 16 114/67 (83) 95 06/27/17 15:39 57 06/27/17 12:29 68 118/77 (91) 06/27/17 11:54 62 06/27/17 11:32 98.0 82 18 81/50 (60) 93 Physical Exam GENERAL: Well developed, well nourished. No acute distress. HEENT: Jugular venous pressure is normal. CHEST: Lungs clear to auscultation bilaterally. Unlabored respiratory effort. CARDIAC: Regular rate and rhythm without S3, S4, or murmur. ABDOMEN: Soft, nontender, no hepatosplenomegaly. Bowel sounds present. EXTREMITIES: No clubbing, cyanosis, or edema. Assessment and Plan Assessment and Plan CP- enzymes neg for DC -recent cath and know CAD requiring redo...pt agreeable and awaiting CV surg Dr Ramírez evaluation -continue present meds Ischemic cardiomyopathy- on BB and KELBY thrombocytopenia- recheck CBC Dr Beaulieu to return 06/29 Iona Zambrano MD Jun 28, 2017 09:07
[2017-06-28] MEDS: GABAPENTIN 100 MG CAP PO SCH ×3 (09:24→18:19)
[2017-06-28] MEDS: PRAVASTATIN SOD 20 MG TAB PO SCH (09:24)
[2017-06-28] MEDS: METOPROLOL SUCCINATE 50 MG EXTENDED RELEASE TAB PO SCH (09:24)
[2017-06-28] MEDS: levETIRAcetam 500 MG TAB PO SCH ×2 (09:24→20:27)
[2017-06-28] MEDS: ASPIRIN EC 81 MG TABEC PO SCH (09:25)
[2017-06-28] MEDS: SODIUM CHLORIDE 0.9% FLUSH 10 ML FLUSH IV FLUSH SCH ×2 (09:25→20:27)
[2017-06-28] MEDS: LISINOPRIL 5 MG TAB PO SCH (09:25)
--- NOTE | 2017-06-28 10:01 | HHI.PR ---
Subjective Remarks Follow-up visit history of CABG, HTN, DM, atrial fibrillation. She is seen and examined today. Continues to complain of chest pain, 10/10, sharp, nonradiating states it is in his chest, constant, relieved by pain medicine. He has not been seen by Dr. Gamez yet. Denies SOB/ dyspnea. Denies palpitations , headaches, dizziness. Denies fevers, chills, n/v/d, constipation. Denies dysuria. Objective Vitals Vital Signs Date Time Temp Pulse Resp B/P (MAP) Pulse Ox O2 Delivery O2 Flow Rate FiO2 06/28/17 08:00 97.9 80 18 110/67 (81) 94 06/28/17 07:53 95 21 06/28/17 04:57 98.2 60 18 101/55 (70) 95 06/28/17 04:00 60 06/28/17 00:47 62 06/28/17 00:06 98.0 62 18 111/66 (81) 95 06/27/17 20:44 98.0 61 18 105/62 (76) 97 06/27/17 20:15 57 06/27/17 15:59 97.9 72 16 114/67 (83) 95 06/27/17 15:39 57 06/27/17 12:29 68 118/77 (91) 06/27/17 11:54 62 06/27/17 11:32 98.0 82 18 81/50 (60) 93 Result Diagram: 06/25/17 2347 06/25/17 2345 Imaging Last Impressions Chest X-Ray 06/25/17 2324 Signed Impressions: Service Date/Time: Sunday, June 25, 2017 23:34 - CONCLUSION: 1. Cardiomegaly. No acute pulmonary disease. Anup Sal MD Objective Remarks GENERAL: This is a well-nourished, well-developed patient, in no apparent distress. SKIN: Warm and dry. HEENT: Normocephalic. Pupils equal round and reactive. Nose without bleeding. Airway patent. NECK: Trachea midline. No JVD. Supple. CARDIOVASCULAR: Regular rate and rhythm without murmurs, gallops, or rubs. RESPIRATORY: Clear to auscultation. Breath sounds equal bilaterally. No wheezes , rales, or rhonchi. GASTROINTESTINAL: Abdomen soft, non-tender, nondistended. Bowel Sounds normoactive x4. MUSCULOSKELETAL: Extremities without clubbing, cyanosis, or edema. NEUROLOGICAL: Awake and alert. Oriented to time, place, person. No focal neuro deficit. Moves all extremities. Normal speech. A/P Problem List: (1) Chest pain ICD Code: R07.9 - Chest pain, unspecified Status: Resolved Assessment and Plan Patient is a 57 y/o male with history of CAD- s/p CABG, hypertension, diabetes, atrial fibrillation, known to me from previous admission, who presented to ER with chest pain. Chest pain with history of CAD- s/p CABG Unstable angina -had a cardiac cath few months ago with critical left main disease- -serial troponin negative - continue aspirin, BB and statin- -cardiology consult appreciated; awaiting CT surgery evaluation. -Dr. Zambrano is going to check platelets Hypertension/ dyslipidemia; resumed home meds. Atrial fibrillation, chronic -resume BB - Xarelto on hold for now. Diabetes mellitus, uncontrolled, type II, no insulin, no acute complication, with nephropathy -Accu-check with SSI- hold oral hypoglycemics for now. Thrombocytopenia- chronic- will monitor. DVT prophylaxis; resume Xarelto after CT surgery evaluation. Discharge Planning Plan to transfer to tertiary hospital Problem Qualifiers (1) Chest pain: Qualified Codes: R07.9 - Chest pain, unspecified Gloria Coelho Jun 28, 2017 10:00
[2017-06-28 11:38] LABS: HEMATOCRIT 33.5 % (39.0-51.0); HEMOGLOBIN 10.5 GM/DL (13.0-17.0); MEAN CELL VOLUME 84.8 FL (80.0-100.0); MEAN CORPUSCULAR HEMOGLOBIN 26.7 PG (27.0-34.0); MEAN CORPUSCULAR HGB CONC 31.5 % (32.0-36.0); MEAN PLATELET VOLUME 9.6 FL (7.0-11.0); PLATELET COUNT 35 TH/MM3 (150-450); RED BLOOD COUNT 3.95 MIL/MM3 (4.50-5.90); WHITE BLOOD COUNT 4.7 TH/MM3 (4.0-11.0)
[2017-06-28] MEDS: MORPHINE SULFATE 2 MG/ML SYRINGE IV PUSH PRN (16:58)
[2017-06-29] VITALS (10 sets, daily range): BP systolic 94–121; BP diastolic 50–69; PULSE 58–75; RESP 18; TEMP 98.2–98.5; O2SAT 94–98
[2017-06-29] MEDS: MORPHINE SULFATE 4 MG/ML INJ IV PUSH PRN ×3 (03:02→23:11)
[2017-06-29] MEDS: INSULIN ASPART SUPPLEMENTAL SCALE SQ SCH ×4 (08:00→20:58)
[2017-06-29] MEDS: ASPIRIN EC 81 MG TABEC PO SCH (08:55)
[2017-06-29] MEDS: GABAPENTIN 100 MG CAP PO SCH ×3 (08:55→18:50)
[2017-06-29] MEDS: PRAVASTATIN SOD 20 MG TAB PO SCH (08:55)
[2017-06-29] MEDS: levETIRAcetam 500 MG TAB PO SCH ×2 (08:55→20:57)
[2017-06-29] MEDS: LISINOPRIL 5 MG TAB PO SCH (08:55)
[2017-06-29] MEDS: SODIUM CHLORIDE 0.9% FLUSH 10 ML FLUSH IV FLUSH SCH ×2 (08:55→20:58)
--- NOTE | 2017-06-29 09:34 | HHI.PR ---
Subjective Remarks Follow up for chest pain with hx of CABG. The patient reports continued chest pain throughout anterior mid sternal chest, described as constant sharp stabbing pains, relieved to 5/10 s/p IV morphine. He reports occasional SOB but denies any currently. Denies any further nausea/vomiting or diaphoresis. Awaiting evaluation by Dr. Ramírez. He has no other medical complaints at this time. Objective Vitals Vital Signs Date Time Temp Pulse Resp B/P (MAP) Pulse Ox O2 Delivery O2 Flow Rate FiO2 06/29/17 08:03 98.5 60 18 96/58 (71) 94 06/29/17 06:13 21 06/29/17 04:54 98.2 64 18 108/64 (79) 97 06/29/17 04:12 75 06/29/17 00:40 98.2 70 18 100/57 (71) 94 06/29/17 00:00 63 06/28/17 20:15 61 06/28/17 19:39 98.6 65 18 109/60 (76) 98 06/28/17 16:00 98.1 59 18 105/63 (77) 97 06/28/17 16:00 59 06/28/17 12:00 98.4 60 18 107/61 (76) 97 I/O 06/28/17 06/28/17 06/28/17 06/29/17 06/29/17 06/29/17 07:00 15:00 23:00 07:00 15:00 23:00 Intake Total 600 ml Balance 600 ml Intake Oral 600 ml # Voids 3 Result Diagram: 06/28/17 1032 06/25/17 2345 Imaging Last Impressions Chest X-Ray 06/25/17 2324 Signed Impressions: Service Date/Time: Sunday, June 25, 2017 23:34 - CONCLUSION: 1. Cardiomegaly. No acute pulmonary disease. Anup Sal MD Objective Remarks GENERAL: Well-nourished, well-developed middle aged male patient in [facility]. SKIN: Warm and dry. No rash. HEENT: Normocephalic. Atraumatic. Pupils equal and round. Mucous membranes pink and moist. NECK: Trachea midline. CARDIOVASCULAR: Regular rate and rhythm. 2/6 systolic murmur noted. Old midline sternotomy scar. RESPIRATORY: No accessory muscle use. Clear to auscultation. Breath sounds equal bilaterally. GASTROINTESTINAL: Abdomen soft, non-tender, nondistended. Normoactive bowel sounds x4. MUSCULOSKELETAL: No obvious deformities. Extremities without clubbing, cyanosis , or edema. No calf swelling or tenderness bilaterally. NEUROLOGICAL: Awake and alert. No obvious cranial nerve deficits. Motor grossly within normal limits. Normal speech. PSYCHIATRIC: Appropriate mood and affect; insight and judgment normal. Medications and IVs Current Medications Medications (Trade) Dose Ordered Sig/Viky Route Start Time Stop Time Status Last Admin (NS Flush) 2 ml UNSCH PRN IV FLUSH 06/26/17 07:00 06/27/17 16:14 (NS Flush) 2 ml BID IV FLUSH 06/26/17 09:00 06/29/17 08:55 (D50w (Vial) Inj) 50 ml UNSCH PRN IV PUSH 06/26/17 10:45 (Glucagon Inj) 1 mg UNSCH PRN OTHER 06/26/17 10:45 (NovoLOG SUPPLEMENTAL SCALE) 1 ACHS SLIDING SCALE SQ 06/26/17 12:00 (Morphine Inj) 2 mg Q4H PRN IV PUSH 06/26/17 10:45 06/28/17 16:58 (Zofran Inj) 4 mg Q8HR PRN IV PUSH 06/26/17 10:45 06/26/17 11:20 (Proair Hfa Inh) 2 puff Q4H PRN INH 06/26/17 11:00 06/27/17 01:14 (Ecotrin Ec) 81 mg DAILY PO 06/27/17 09:00 06/29/17 08:55 (Neurontin) 100 mg TID PO 06/26/17 13:00 06/29/17 08:55 (Keppra) 1,000 mg BID PO 06/26/17 21:00 06/29/17 08:55 (Toprol Xl) 50 mg DAILY PO 06/27/17 09:00 06/28/17 09:24 (Pravachol) 20 mg DAILY PO 06/27/17 09:00 06/29/17 08:55 (Morphine Inj) 4 mg Q3H PRN IV PUSH 06/26/17 12:00 06/29/17 06:25 (Prinivil) 2.5 mg DAILY PO 06/27/17 09:00 06/29/17 08:55 A/P Problem List: (1) Chest pain ICD Code: R07.9 - Chest pain, unspecified Status: Resolved Assessment and Plan 57 y/o male with history of CAD- s/p CABG, hypertension, diabetes,atrial fibrillation, known to me from previous admission, who presented to ER with chest pain. Chest pain/Unstable Angina: with history of CAD- s/p CABG -s/p cardiac cath 03/23/17 showed critical left main disease and severe mitral regurgitation -serial troponins negative -continue aspirin, BB and statin- -cardiology consult appreciated; awaiting CT surgery evaluation, patient known to Dr. Ramírez, awaiting eval. -may need transfer to tertiary care center such as [facility] Hypertension/ dyslipidemia: chronic -resumed home meds. Atrial fibrillation, chronic -resume BB - Xarelto on hold for now. Diabetes mellitus, uncontrolled, type II, no insulin, no acute complication, with nephropathy -Accu-check with SSI- hold oral hypoglycemics for now. Thrombocytopenia- chronic- will monitor. -platelets dropped to 35K -continue to monitor DVT prophylaxis; plan to resume Xarelto after CT surgery evaluation if no surgical intervention recommended Discharge Planning Awaiting evaluation by Dr. Ramírez. May need transfer to tertiary care center. Problem Qualifiers (1) Chest pain: Qualified Codes: R07.9 - Chest pain, unspecified Elena Cortés PA-C Jun 29, 2017 9:34 am
[2017-06-29] MEDS: MORPHINE SULFATE 2 MG/ML SYRINGE IV PUSH PRN ×2 (12:43→21:00)
--- NOTE | 2017-06-29 12:57 | PD.CAR.PN ---
CVT Progress Note Subjective/Hospital Course: Pt well known to Dr. Ramírez from previous admission. Will likely need transfer to tertiary care center for reoperative sternotomy with CABG and MVR. Dr. Ramírez to discuss it further with the patient in am. Thanks. 06/29/17 Denies chest pain today. High-risk surgical candidate secondary to recurrent obstructive CAD with MRShreya Also thrombocytopenia, ETOH, and tobacco abuse. h/o non-compliance. Objective: Vital Signs Date Time Temp Pulse Resp B/P (MAP) Pulse Ox O2 Delivery O2 Flow Rate FiO2 06/29/17 11:40 98.4 67 18 99/54 (69) 95 06/29/17 08:03 98.5 60 18 96/58 (71) 94 06/29/17 06:13 21 06/29/17 04:54 98.2 64 18 108/64 (79) 97 06/29/17 04:12 75 06/29/17 00:40 98.2 70 18 100/57 (71) 94 06/29/17 00:00 63 06/28/17 20:15 61 06/28/17 19:39 98.6 65 18 109/60 (76) 98 06/28/17 16:00 98.1 59 18 105/63 (77) 97 06/28/17 16:00 59 Result Diagram: 06/28/17 1032 06/25/17 2345 Imaging: Last Impressions Chest X-Ray 06/25/17 2324 Signed Impressions: Service Date/Time: Sunday, June 25, 2017 23:34 - CONCLUSION: 1. Cardiomegaly. No acute pulmonary disease. Anup Sal MD Cardiovascular: RRR Telemetry: SB Pulmonary: CTA GI/: NABS Incision: well-healed sternotomy Plan: Patient is high-risk for REDO sternotomy for CABG, MV repair/replacement. The patient is now agreeable to proceed with treatment. He refused in March. I will confer with my partners and see if he is best suited for transfer or to remain here. Will follow. Repeat ECHO and PFTs ordered. Jeni Ramírez MD Jun 29, 2017 12:57
[2017-06-29] MEDS: METOPROLOL SUCCINATE 50 MG EXTENDED RELEASE TAB PO SCH (17:59)
[2017-06-30] VITALS (9 sets, daily range): BP systolic 98–120; BP diastolic 54–74; PULSE 60–73; RESP 16–18; TEMP 98.3–98.8; O2SAT 95–99
[2017-06-30] MEDS: MORPHINE SULFATE 4 MG/ML INJ IV PUSH PRN ×6 (02:25→21:39)
[2017-06-30] MEDS: INSULIN ASPART SUPPLEMENTAL SCALE SQ SCH ×4 (08:00→20:48)
[2017-06-30] MEDS: LISINOPRIL 5 MG TAB PO SCH (09:00)
[2017-06-30] MEDS: METOPROLOL SUCCINATE 50 MG EXTENDED RELEASE TAB PO SCH (09:00)
--- NOTE | 2017-06-30 09:32 | HHI.PR ---
Subjective Remarks Follow up for chest pain with hx of CABG. The patient reports continued chest pain overnight and today, located at the mid to left anterior chest without radiation, described as pressure, denies any shortness of breath, nausea/ vomiting, or diaphoresis. He has no other medical complaints at this time. Objective Vitals Vital Signs Date Time Temp Pulse Resp B/P (MAP) Pulse Ox O2 Delivery O2 Flow Rate FiO2 06/30/17 08:10 98.4 60 18 98/56 (70) 95 06/30/17 03:30 66 06/30/17 02:22 98.7 65 16 113/74 (87) 95 06/29/17 20:45 98.2 69 18 121/69 (86) 98 06/29/17 16:13 98.5 58 18 94/50 (65) 98 06/29/17 15:30 59 06/29/17 11:40 98.4 67 18 99/54 (69) 95 I/O 06/29/17 06/29/17 06/29/17 06/30/17 06/30/17 06/30/17 07:00 15:00 23:00 07:00 15:00 23:00 Intake Total 240 ml 1200 ml Balance 240 ml 1200 ml Intake Oral 240 ml 1200 ml # Voids 1 5 Result Diagram: 06/28/17 1032 06/25/17 2345 Imaging Last Impressions Chest X-Ray 06/25/17 2324 Signed Impressions: Service Date/Time: Sunday, June 25, 2017 23:34 - CONCLUSION: 1. Cardiomegaly. No acute pulmonary disease. Anup Sal MD Objective Remarks GENERAL: Well-nourished, well-developed middle aged male patient in [facility]. SKIN: Warm and dry. No rash. HEENT: Normocephalic. Atraumatic. Pupils equal and round. Mucous membranes pink and moist. CARDIOVASCULAR: Regular rate and rhythm. 2/6 systolic murmur noted. Old midline sternotomy scar. RESPIRATORY: No accessory muscle use. Clear to auscultation. Breath sounds equal bilaterally. GASTROINTESTINAL: Abdomen soft, non-tender, nondistended. Normoactive bowel sounds x4. MUSCULOSKELETAL: No obvious deformities. Extremities without clubbing, cyanosis , or edema. No calf swelling or tenderness bilaterally. NEUROLOGICAL: Awake and alert. No obvious cranial nerve deficits. Motor grossly within normal limits. Normal speech. PSYCHIATRIC: Appropriate mood and affect; insight and judgment normal. Medications and IVs Current Medications Medications (Trade) Dose Ordered Sig/Viky Route Start Time Stop Time Status Last Admin (NS Flush) 2 ml UNSCH PRN IV FLUSH 06/26/17 07:00 06/27/17 16:14 (NS Flush) 2 ml BID IV FLUSH 06/26/17 09:00 06/29/17 20:58 (D50w (Vial) Inj) 50 ml UNSCH PRN IV PUSH 06/26/17 10:45 (Glucagon Inj) 1 mg UNSCH PRN OTHER 06/26/17 10:45 (NovoLOG SUPPLEMENTAL SCALE) 1 ACHS SLIDING SCALE SQ 06/26/17 12:00 (Morphine Inj) 2 mg Q4H PRN IV PUSH 06/26/17 10:45 06/29/17 21:00 (Zofran Inj) 4 mg Q8HR PRN IV PUSH 06/26/17 10:45 06/26/17 11:20 (Proair Hfa Inh) 2 puff Q4H PRN INH 06/26/17 11:00 06/27/17 01:14 (Ecotrin Ec) 81 mg DAILY PO 06/27/17 09:00 06/29/17 08:55 (Neurontin) 100 mg TID PO 06/26/17 13:00 06/29/17 18:50 (Keppra) 1,000 mg BID PO 06/26/17 21:00 06/29/17 20:57 (Toprol Xl) 50 mg DAILY PO 06/27/17 09:00 06/28/17 09:24 (Pravachol) 20 mg DAILY PO 06/27/17 09:00 06/29/17 08:55 (Morphine Inj) 4 mg Q3H PRN IV PUSH 06/26/17 12:00 06/30/17 06:25 (Prinivil) 2.5 mg DAILY PO 06/27/17 09:00 06/29/17 08:55 A/P Problem List: (1) Chest pain ICD Code: R07.9 - Chest pain, unspecified Status: Resolved Assessment and Plan 57 y/o male with history of CAD- s/p CABG, hypertension, diabetes,atrial fibrillation, known to me from previous admission, who presented to ER with chest pain. Chest pain/Unstable Angina: with history of CAD- s/p CABG -s/p cardiac cath 03/23/17 showed critical left main disease and severe mitral regurgitation -serial troponins negative -continue aspirin, BB and statin- -cardiology consult appreciated -cardiothoracic surgeon Dr. Ramírez consulted, ordered echo, PFTs, and may need transfer to tertiary care center such as [facility] [place] -awaiting echo Hypertension/ dyslipidemia: chronic -resumed home meds. Atrial fibrillation, chronic -resume BB - Xarelto on hold for now. Diabetes mellitus, uncontrolled, type II, no insulin, no acute complication, with nephropathy -Accu-check with SSI- hold oral hypoglycemics for now. Thrombocytopenia- chronic- will monitor. -platelets dropped to 35K -continue to monitor DVT prophylaxis; plan to resume Xarelto after CT surgery evaluation if no surgical intervention recommended Discharge Planning Awaiting echocardiogram and plan to be determined by Dr. Ramírez. May need transfer to tertiary care center such as [facility] [place]. Attending Statement patient was seen and examined today. in no acute distress. still with on and off chest pain. d/w Ct surgery today; plan for possible transfer to tertiary center for further evaluation and treatment. d/w the patient. Problem Qualifiers (1) Chest pain: Qualified Codes: R07.9 - Chest pain, unspecified Elena Cortés PA-C Jun 30, 2017 09:32 Graciela Rosenbaum MD Jun 30, 2017 13:58
[2017-06-30] MEDS: PRAVASTATIN SOD 20 MG TAB PO SCH (09:37)
[2017-06-30] MEDS: ASPIRIN EC 81 MG TABEC PO SCH (09:37)
[2017-06-30] MEDS: GABAPENTIN 100 MG CAP PO SCH ×3 (09:37→18:38)
[2017-06-30] MEDS: levETIRAcetam 500 MG TAB PO SCH ×2 (09:37→21:39)
[2017-06-30] MEDS: SODIUM CHLORIDE 0.9% FLUSH 10 ML FLUSH IV FLUSH SCH ×2 (09:38→20:48)
--- NOTE | 2017-06-30 13:13 | PD.CAR.PN ---
CVT Progress Note Subjective/Hospital Course: Pt well known to Dr. Ramírez from previous admission. Will likely need transfer to tertiary care center for reoperative sternotomy with CABG and MVR. Dr. Ramírez to discuss it further with the patient in am. Thanks. 06/29/17 Denies chest pain today. High-risk surgical candidate secondary to recurrent obstructive CAD with MRShreya Also thrombocytopenia, ETOH, and tobacco abuse. h/o non-compliance. 06/30 CD of echo and cath report sent to [facility] in [place] pt still having chest pain will consult CM to assist in transfer / accepted by Dr Sharp Objective: GENERAL: SKIN: Warm and dry. HEAD: Normocephalic. EYES: No scleral icterus. No injection or drainage. NECK: Supple, trachea midline. No JVD or lymphadenopathy. CARDIOVASCULAR: Regular rate and rhythm without murmurs, gallops, or rubs. RESPIRATORY: Breath sounds equal bilaterally. No accessory muscle use. GASTROINTESTINAL: Abdomen soft, non-tender, nondistended. MUSCULOSKELETAL: No cyanosis, or edema. BACK: Nontender without obvious deformity. No CVA tenderness. Vital Signs Date Time Temp Pulse Resp B/P (MAP) Pulse Ox O2 Delivery O2 Flow Rate FiO2 06/30/17 11:36 98.8 63 18 100/54 (69) 96 06/30/17 09:38 98.4 68 18 111/66 (81) 96 06/30/17 08:10 98.4 60 18 98/56 (70) 95 06/30/17 03:30 66 06/30/17 02:22 98.7 65 16 113/74 (87) 95 06/29/17 20:45 98.2 69 18 121/69 (86) 98 06/29/17 16:13 98.5 58 18 94/50 (65) 98 06/29/17 15:30 59 Result Diagram: 06/28/17 1032 06/25/17 2218 (1) Chest pain Plan: eval for transfer to [facility] Dr Sharp (2) Hx of CABG (3) Diabetes mellitus (4) Hyperlipidemia (5) COPD (chronic obstructive pulmonary disease) (6) Cardiomyopathy Problem Qualifiers (1) Chest pain: Qualified Codes: R07.9 - Chest pain, unspecified Edith Whitlock Jun 30, 2017 13:13
--- NOTE | 2017-06-30 17:45 | ECHRPT ---
Indication: Cardiomyopathy, unspecified CONCLUSIONS The left ventricular systolic function is low normal with an estimated ejection fraction in the rang e of 50- 55%. Wall thickness is normal. Normal left ventricular size. The left atrial size is moderately dilated. Mild to moderate mitral valve regurgitation. There is mild tricuspid valve regurgitation. The estimated pulmonary arterial pressure is 34 mmHg. BP: / HR: Rhythm: Sinus MEASUREMENTS (Male / Female) Normal Values Technical Quality:Fair 2D ECHO LV Diastolic Diameter PLAX 6.0 cm 4.2 - 5.9 / 3.9 - 5.3 cm LV Systolic Diameter PLAX 4.6 cm IVS Diastolic Thickness 1.2 cm 0.6 - 1.0 / 0.6 - 0.9 cm LVPW Diastolic Thickness 1.2 cm 0.6 - 1.0 / 0.6 - 0.9 cm LV Relative Wall Thickness 0.4 LVOT Diameter 2.2 cm M-MODE Aortic Root Diameter MM 3.4 cm LA Systolic Diameter MM 5.2 cm LA Ao Ratio MM 1.5 AV Cusp Separation MM 2.4 cm DOPPLER AV Peak Velocity 149.0 cm/s AV Peak Gradient 8.9 mmHg LVOT Peak Velocity 58.7 cm/s LVOT Peak Gradient 1.4 mmHg AV Area Cont Eq pk 1.5 cm MR Peak Velocity 449.0 cm/s MR Peak Gradient 80.6 mmHg Mitral E Point Velocity 111.0 cm/s Mitral A Point Velocity 97.2 cm/s Mitral E to A Ratio 1.1 LV E' Lateral Velocity 12.8 cm/s Mitral E to LV E' Lateral Ratio 8.7 LV E' Septal Velocity 8.1 cm/s Mitral E to LV E' Septal Ratio 13.7 TR Peak Velocity 246.0 cm/s TR Peak Gradient 24.2 mmHg Right Atrial Pressure 10.0 mmHg Pulmonary Artery Systolic Pressu 34.2 mmHg Right Ventricular Systolic Press 34.2 mmHg PV Peak Velocity 119.0 cm/s PV Peak Gradient 5.7 mmHg FINDINGS LEFT VENTRICLE The left ventricular systolic function is low normal with an estimated ejection fraction in the rang e of 50- 55%. Wall thickness is normal. Normal left ventricular size. RIGHT VENTRICLE Normal right ventricular size and systolic function. LEFT ATRIUM The left atrial size is moderately dilated. RIGHT ATRIUM The right atrial size is normal. ATRIAL SEPTUM Normal atrial septal thickness without atrial level shunting by limited color doppler interrogation. AORTA The aortic root and proximal ascending aorta are normal in size on limited imaging. MITRAL VALVE Mild to moderate mitral valve regurgitation. AORTIC VALVE Trileaflet aortic valve. No aortic valve stenosis or regurgitation. TRICUSPID VALVE There is mild tricuspid valve regurgitation. The estimated pulmonary arterial pressure is 34.2 mmHg. PULMONARY VALVE No pulmonary valve regurgitation or stenosis. VESSELS The inferior vena cava is normal in size. PERICARDIUM No pericardial effusion. Bruno Cardoso MD, FACC (Electronically Signed) Final Date:30 June 2017 17:44
[2017-07-01] MEDS: MORPHINE SULFATE 4 MG/ML INJ IV PUSH PRN ×3 (00:07→10:12)
[2017-07-01 04:13] VITALS: BP 93/54; PULSE 62; RESP 17; TEMP 98.1; O2SAT 95
[2017-07-01] MEDS ORDERED: LISI-519 PO (07:54)
--- NOTE | 2017-07-01 07:55 | HHI.DCPOC ---
Discharge Care Plan Diagnosis: (1) Chest pain (2) CAD (coronary artery disease) (3) Hx of CABG (4) Cardiomyopathy (5) Diabetes mellitus (6) Hyperlipidemia (7) COPD (chronic obstructive pulmonary disease) (8) Hypertension (9) Tobacco abuse Goals to Promote Your Health * To prevent worsening of your condition and complications * To maintain your health at the optimal level Directions to Meet Your Goals Take your medications as prescribed Follow your dietary instruction Follow activity as directed Keep your appointments as scheduled Take your immunizations and boosters as scheduled If your symptoms worsen call your PCP, if no PCP go to Urgent Care Center or Emergency Room Smoking is Dangerous to Your Health. Avoid second hand smoke Call the 24-hour hour crisis hotline for domestic abuse at Elena Cortés PA-C Jul 01, 2017 07:55
[2017-07-01 08:10] VITALS: BP 92/54; PULSE 69; RESP 18; TEMP 98.2; O2SAT 97
[2017-07-01] MEDS: INSULIN ASPART SUPPLEMENTAL SCALE SQ SCH (08:59)
[2017-07-01] MEDS: GABAPENTIN 100 MG CAP PO SCH (08:59)
[2017-07-01] MEDS: SODIUM CHLORIDE 0.9% FLUSH 10 ML FLUSH IV FLUSH SCH (08:59)
[2017-07-01] MEDS: levETIRAcetam 500 MG TAB PO SCH (09:00)
[2017-07-01] MEDS: LISINOPRIL 5 MG TAB PO SCH (09:00)
[2017-07-01] MEDS: ASPIRIN EC 81 MG TABEC PO SCH (09:00)
[2017-07-01] MEDS: PRAVASTATIN SOD 20 MG TAB PO SCH (09:00)
[2017-07-01] MEDS: METOPROLOL SUCCINATE 50 MG EXTENDED RELEASE TAB PO SCH (09:00)
--- NOTE | 2017-07-01 09:26 | HHI.DS ---
cc: Iona Zambrano MD; Jeni Ramírez MD Discharge Summary Admission Date Jun 26, 2017 at 5:36 am Discharge Date: Jul 01, 2017 Admitting Diagnosis CHEST PAIN (1) Chest pain ICD Code: R07.9 - Chest pain, unspecified Diagnosis: Principal Status: Resolved Procedures None. Brief History - From Admission patient is a 57 y/o male with history of CAD- s/p CABG, hypertension, diabetes, atrial fibrillation, known to me from previous admission, who presented to ER with chest pain. he was admitted to this hospital few months ago for the same complaint. he underwent cardiac cath and was found to have critical left main artery disease. CT surgery consulted and due to being a high risk patient , CT surgery was in the process of transferring the patient to [facility]- however the patient declined and went home. he says that he's had chest pain on and off since then but it seems that it's more severe now and lasts longer. chest pain is midsternal with some radiation to the left chest wall. it's been associated with some nausea. CBC/BMP: 06/28/17 1032 Significant Findings Laboratory Tests Test 06/28/17 10:32 Red Blood Count 3.95 MIL/MM3 (4.50-5.90) Hemoglobin 10.5 GM/DL (13.0-17.0) Hematocrit 33.5 % (39.0-51.0) Mean Corpuscular Hemoglobin 26.7 PG (27.0-34.0) Mean Corpuscular Hemoglobin Concent 31.5 % (32.0-36.0) Red Cell Distribution Width 22.0 % (11.6-17.2) Platelet Count 35 TH/MM3 (150-450) Imaging Last Impressions Chest X-Ray 06/25/17 6456 Signed Impressions: Service Date/Time: Sunday, June 25, 2017 23:34 - CONCLUSION: 1. Cardiomegaly. No acute pulmonary disease. Anup Sal MD PE at Discharge GENERAL: Well-nourished, well-developed middle aged male patient in [facility]. SKIN: Warm and dry. No rash. HEENT: Normocephalic. Atraumatic. Pupils equal and round. Mucous membranes pink and moist. CARDIOVASCULAR: Regular rate and rhythm. 2/6 systolic murmur noted. Old midline sternotomy scar. RESPIRATORY: No accessory muscle use. Clear to auscultation. Breath sounds equal bilaterally. GASTROINTESTINAL: Abdomen soft, non-tender, nondistended. Normoactive bowel sounds x4. MUSCULOSKELETAL: No obvious deformities. Extremities without clubbing, cyanosis , or edema. No calf swelling or tenderness bilaterally. NEUROLOGICAL: Awake and alert. No obvious cranial nerve deficits. Motor grossly within normal limits. Normal speech. PSYCHIATRIC: Appropriate mood and affect; insight and judgment normal. Pt update on day of discharge Follow up for chest pain. The patient reports continued intermittent chest pain overnight, described as sharp pains located at the mid to left anterior chest without radiation. Denies shortness of breath, nausea/vomiting, or diaphoresis. He is agreeable to transfer to [facility] today for redo CABG. He has no other medical complaints at this time. Hospital Course 57 y/o male with history of CAD- s/p CABG, hypertension, diabetes,atrial fibrillation, known to me from previous admission, who presented to ER with chest pain. Chest pain/Unstable Angina: with history of CAD- s/p CABG at age 36. S/p cardiac cath 03/23/17 showed critical left main disease and severe mitral regurgitation. Serial troponins negative x4. Continued aspirin, BB and statin. Cardiology consult appreciated, recommend cardiothoracic surgery eval. Consulted cardiothoracic surgeon Dr. Ramírez (patient known to him from previous admission when he declined redo CABG). Dr. Ramírez ordered repeat echo which showed EF 55-60%, mild-mod MR, mild TR. PFTs also completed. Dr. Ramírez discussed with cardiothoracic surgery at [facility] who accepted transfer and plans for repeat CABG. Case management arranged transportation and placement into [facility]. Hypertension/ dyslipidemia: chronic. Resumed home meds. Atrial fibrillation, chronic. Resume BB - Xarelto on hold for now with upcoming surgery. Diabetes mellitus, uncontrolled, type II, no insulin, no acute complication, with nephropathy. Accu-check with SSI- held oral hypoglycemics for now. Thrombocytopenia- chronic- will monitor. Platelets dropped to 35K. Dr. Ramírez aware. No signs of bleeding. Pt Condition on Discharge: Stable Discharge Disposition: Trnsfr to Other Facility Discharge Time: > 30 minutes Discharge Instructions DIET: Follow Instructions for: Heart Healthy Diet Activities you can perform: Regular-No Restrictions Follow up Referrals: Cardiology - Today PCP Follow-up - 1 Week with Patricia James MD New Medications: Lisinopril (Lisinopril) 5 Mg Tab 2.5 MG PO DAILY for Blood Pressure Management, #30 TAB Continued Medications: Albuterol 18 GM Inh (Ventolin Hfa 18 GM Inh) 90 Mcg/Act Aer 2 PUFF INH Q4H PRN for SHORTNESS OF BREATH, #1 INHALER [address] (Aspirin DR) 81 Mg Tabdr 81 MG PO DAILY for Blood Clot Prevention, #31 TAB 0 Refills Blood Glucose Monitoring Suppl (Blood Glucose System Donny) 1 Kit Kit KIT, #1 Gabapentin (Gabapentin) 100 Mg Cap 100 MG PO TID, #90 CAP 0 Refills Glipizide (Glipizide) 5 Mg Tab 5 MG PO DAILY for Blood Sugar Management, #30 TAB 0 Refills Take 30 minutes before a meal Levetiracetam (Levetiracetam) 1,000 Mg Tab 1000 MG PO BID for Control Seizures, #60 TAB 0 Refills Metoprolol Succinate ER 24 HR (Metoprolol Succinate ER 24 HR) 50 Mg Tab 50 MG PO DAILY, #30 TAB 0 Refills Morphine IR (Morphine IR) 15 Mg Tab 15 MG PO Q4H PRN for PAIN, #30 TAB 0 Refills Rivaroxaban (Xarelto) 20 Mg Tab 20 MG PO DAILY for Blood Clot Prevention, #30 TAB 0 Refills Simvastatin (Simvastatin) 10 Mg Tab 10 MG PO DAILY for Cholesterol Management, #30 TAB 0 Refills Elena Cortés PA-C Jul 01, 2017 9:26 am
--- NOTE | 2017-07-12 13:26 | RSPPFT ---
DATE OF PROCEDURE: 06/29/17 COMMENTS: Spirometry demonstrates an FEV1 of 1.2 at 32% of predicted, FVC of 2.3 at 47%, FEF 25-75 is 12%. Flow volume loops suggest an obstructive pattern. IMPRESSION: 1. Moderately severe obstructive airways disease.
== END 2017-07-01 11:12 | disposition home or self-care (01) ==
LOC: NEPE 22:28 → NEDA 06-26 05:36 → INTOOBSV 06-26 06:52 → OBSVTOIN 06-26 06:52 → NEPGCP 06-26 08:23
PROVIDERS: ADMIT Internal Medicine; ATTEND Internal Medicine
DX: R07.89 Other chest pain (principal); I25.110 Atherosclerotic heart disease of native coronary artery with unstable angina pectoris; I42.9 Cardiomyopathy, unspecified; E11.9 Type 2 diabetes mellitus without complications; D69.6 Thrombocytopenia, unspecified; I34.0 Nonrheumatic mitral (valve) insufficiency; E78.5 Hyperlipidemia, unspecified; J44.9 Chronic obstructive pulmonary disease, unspecified; I50.9 Heart failure, unspecified; I11.0 Hypertensive heart disease with heart failure; F17.210 Nicotine dependence, cigarettes, uncomplicated; Z95.1 Presence of aortocoronary bypass graft; Z79.01 Long term (current) use of anticoagulants
CPT/HCPCS: 71045; 80053; 82550; 82552; 82948; 83690; 84484; 85025; 85027; 93005; 93306; 94010; 96374; 96375; 96376; 99285; C9113; G0378; J1815; J2270; J2405

== ENCOUNTER 2017-07-24 20:13 | Observation (INO) | payer MEDICARE, MEDICAID ==
[~2017-07-24 20:13] MED LIST changes: +LISI-519 PO
[2017-07-24 20:20] VITALS: BP 115/81; PULSE 72; RESP 18; TEMP 98; O2SAT 100
[2017-07-24] MEDS ORDERED: ONDANSETRON ODT 4 MG TAB PO ONE (20:45)
[2017-07-24] MEDS ORDERED: MORPHINE SULFATE 4 MG/ML INJ IV PUSH ONE (20:45)
[2017-07-24] MEDS ORDERED: SODIUM CHLORIDE 0.9% FLUSH 10 ML FLUSH IVF PRN (20:45)
[2017-07-24 20:59] VITALS: PULSE 64; RESP 16; O2SAT 100
--- NOTE | 2017-07-24 21:11 | RADRPT ---
EXAM DATE/TIME: 07/24/2017 20:49 [facility] COMPARISON: CHEST SINGLE AP, June 25, 2017, 23:34. INDICATIONS : Pain and shortness of breath. MEDICAL HISTORY : None. SURGICAL HISTORY : Pacemaker. CABG. Cardiac stents. ENCOUNTER: Initial ACUITY: 2 days PAIN SCORE: 7/10 LOCATION: Chest, midline and left lower. FINDINGS: A single view of the chest demonstrates the lungs to be symmetrically aerated without evidence of mas s, infiltrate or effusion. The lungs are hyperaerated bilaterally. The heart size is enlarged but st able. There is evidence of previous cardiothoracic surgery. There is a pacemaker on the right side.. Osseous structures are intact and stable. No significant changes. CONCLUSION: No acute disease. No significant change has occurred. Yandel Rosenberg MD on July 24, 2017 at 21:08 Board Certified Radiologist. This report was verified electronically.
[2017-07-24 21:18] LABS: AUTOMATED NEUTROPHIL # 2.1 TH/MM3 (1.8-7.7); BASOPHIL % 0.8 % (0.0-2.0); EOSINOPHIL # 0.1 TH/MM3 (0-0.4); EOSINOPHIL % 0.9 % (0.0-4.0); HEMATOCRIT 38.1 % (39.0-51.0); HEMOGLOBIN 12.4 GM/DL (13.0-17.0); LYMPH % 57.8 % (9.0-44.0); LYMPHOCYTE # 3.4 TH/MM3 (1.0-4.8); MEAN CELL VOLUME 84.5 FL (80.0-100.0); MEAN CORPUSCULAR HEMOGLOBIN 27.5 PG (27.0-34.0); MEAN CORPUSCULAR HGB CONC 32.5 % (32.0-36.0); MEAN PLATELET VOLUME 9.3 FL (7.0-11.0); MONO % 5.8 % (0.0-8.0); MONOCYTE # 0.3 TH/MM3 (0-0.9); NEUT % 34.7 % (16.0-70.0); PLATELET COUNT 67 TH/MM3 (150-450); RED BLOOD COUNT 4.51 MIL/MM3 (4.50-5.90); RED CELL DISTRIBUTION WIDTH 22.1 % (11.6-17.2); WHITE BLOOD COUNT 5.9 TH/MM3 (4.0-11.0)
[2017-07-24 21:27] LABS: INTERNATIONAL NORMALIZED RATIO 1.2 RATIO; PROTHROMBIN TIME - PATIENT 11.9 SEC (9.8-11.6)
[2017-07-24 21:57] LABS: BICARBONATE 24.8 MEQ/L (21.0-32.0); BLOOD UREA NITROGEN 12 MG/DL (7-18); CALCIUM 7.9 MG/DL (8.5-10.1); CHLORIDE 102 MEQ/L (98-107); CREATININE 1.18 MG/DL (0.60-1.30); GLOMERULAR FILTRATION RATE 64 ML/MIN (>89); GLUCOSE,RANDOM 116 MG/DL (74-106); MAGNESIUM 2.3 MG/DL (1.5-2.5); SODIUM (NA) 136 MEQ/L (136-145)
[2017-07-24 22:01] LABS: TROPONIN I LESS THAN 0.02 NG/ML (0.02-0.05)
[2017-07-24] MEDS ORDERED: TEMAZEPAM 15 MG CAP PO PRN (22:15)
[2017-07-24] MEDS ORDERED: ALPRAZolam 0.25 MG TAB PO PRN (22:15)
[2017-07-24] MEDS ORDERED: SODIUM CHLORIDE 0.9% FLUSH 10 ML FLUSH IV FLUSH PRN (22:15)
[2017-07-24] MEDS ORDERED: ACETAMINOPHEN 500 MG CPLT PO PRN (22:15)
--- NOTE | 2017-07-24 22:19 | PD ---
HPI Chief Complaint: Chest Pain Time Seen by Provider: 20:22 Travel History International Travel<30 days: No Contact w/Intl Traveler<30days: No Traveled to known affect area: No History of Present Illness HPI 57-year-old male complains of chest pain. Location is retrosternal. He has had intermittent chest pain for a few weeks now. This afternoon it became severe while he was at rest. There is radiation to the left arm to the back. There is shortness of breath. There is no fever. There is no cough. There is a significant exertional component. Patient has been compliant with all of his medications. He was seen here about 6 weeks prior and was admitted. He was sent to [facility] for CABG revision. Patient requests morphine to "knock me out." PFS Past Medical History Hx Anticoagulant Therapy: Yes Arthritis: No Asthma: No Atrial Fibrillation: Yes Autoimmune Disease: No Blood Disorders: No Anxiety: No Depression: No Heart Rhythm Problems: Yes Cancer: No Cardiac Catheterization: Yes Cardiovascular Problems: Yes High Cholesterol: Yes Chemotherapy: No Chest Pain: Yes Congestive Heart Failure: No COPD: Yes Cerebrovascular Accident: No Diabetes: Yes Patient Takes Glucophage: Yes Diminished Hearing: No Endocrine: No Gastrointestinal Disorders: Yes GERD: No Glaucoma: No Genitourinary: No Headaches: Yes Hepatitis: No Hiatal Hernia: No Hypertension: Yes Immune Disorder: No Implanted Vascular Access Dvce: Yes Kidney Stones: No Musculoskeletal: No Neurologic: Yes Psychiatric: No Reproductive: No Respiratory: Yes (COPD) Migraines: No Myocardial Infarction: Yes Radiation Therapy: No Renal Failure: No Seizures: Yes (EPILEPSY 2001) Sickle Cell Disease: No Sleep Apnea: No Thyroid Disease: No Ulcer: No PNEUMOCCOCAL Vaccine (Year): 2 Past Surgical History Abdominal Aneurysm Repair: Yes (1995) Abdominal Surgery: No AICD: Yes (01/20 [facility] MN:[id number], SN:[id number], removed) Appendectomy: No Arteriovenous Shunt: No Body Medical Devices: PACER Cardiac Surgery: Yes (CABG X 3 VESSEL IN , pacer, ablation) Cholecystectomy: No Coronary Artery Bypass Graft: Yes Coronary Stent: Yes Ear Surgery: No Endocrine Surgery: No Eye Surgery: No Genitourinary Surgery: No Gynecologic Surgery: No Insulin Pump: No Joint Replacement: No Oral Surgery: No Pacemaker: Yes (AICD VIA DR GREGORIO) Thoracic Surgery: No Social History Alcohol Use: Yes (12-pack daily) Tobacco Use: Yes (1 PPD) Substance Use: No Allergies-Medications (Allergen,Severity, Reaction): Coded Allergies: cefazolin (Unverified Allergy, Severe, Hives, 07/24/17) nitroglycerin (Unverified Adverse Reaction, Intermediate, Nausea/Vomiting , 07/24/17) MD aware. aspirin (Verified Adverse Reaction, Unknown, gi upset, 07/24/17) MD aware Reported Meds & Prescriptions Reported Meds & Active Scripts Active Lisinopril 5 Mg Tab 2.5 Mg PO DAILY Morphine IR (Morphine Sulfate) 15 Mg Tab 15 Mg PO Q4H PRN Ventolin Hfa 18 GM Inh (Albuterol Sulfate) 90 Mcg/Act Aer 2 Puff INH Q4H PRN Xarelto (Rivaroxaban) 20 Mg Tab 20 Mg PO DAILY Blood Glucose System Donny (Blood Glucose Monitoring Suppl) 1 Kit Kit Kit Glipizide 5 Mg Tab 5 Mg PO DAILY Take 30 minutes before a meal Reported Metoprolol Succinate ER 24 HR (Metoprolol Succinate) 50 Mg Tab 50 Mg PO DAILY Gabapentin 100 Mg Cap 100 Mg PO TID Levetiracetam 1,000 Mg Tab 1,000 Mg PO BID Simvastatin 10 Mg Tab 10 Mg PO DAILY Review of Systems Except as stated in HPI: all other systems reviewed are Neg General / Constitutional: No: Fever Physical Exam Narrative GENERAL: 57-year-old male well-nourished well-developed no obvious distress at the time of your evaluation SKIN: Warm and dry. Vital Signs Date Time Temp Pulse Resp B/P (MAP) Pulse Ox O2 Delivery O2 Flow Rate FiO2 07/24/17 20:59 64 16 100 Nasal Cannula 2.00 07/24/17 20:59 100 Nasal Cannula 2.00 07/24/17 20:28 72 16 100 Room Air 07/24/17 20:20 98.0 72 18 115/81 (92) 100 HEAD: Atraumatic. Normocephalic. EYES: Pupils equal and round. No scleral icterus. No injection or drainage. ENT: No nasal bleeding or discharge. Mucous membranes pink and moist. NECK: Trachea midline. No JVD. CARDIOVASCULAR: Regular rate and rhythm. RESPIRATORY: No accessory muscle use. Clear to auscultation. Breath sounds equal bilaterally. GASTROINTESTINAL: Abdomen soft, non-tender, nondistended. Hepatic and splenic margins not palpable. MUSCULOSKELETAL: Extremities without clubbing, cyanosis, or edema. No obvious deformities. NEUROLOGICAL: Awake and alert. No obvious cranial nerve deficits. Motor grossly within normal limits. Five out of 5 muscle strength in the arms and legs. Normal speech. PSYCHIATRIC: Appropriate mood and affect; insight and judgment normal. Data Data Last Documented VS Vital Signs Date Time Temp Pulse Resp B/P (MAP) Pulse Ox O2 Delivery O2 Flow Rate FiO2 07/24/17 20:59 64 16 100 Nasal Cannula 2.00 07/24/17 20:20 98.0 115/81 (92) Orders Orders Electrocardiogram (07/24/17 20:42) Basic Metabolic Panel (Bmp) (07/24/17 20:42) Ckmb (Isoenzyme) Profile (07/24/17 20:42) Complete Blood Count With Diff (07/24/17 20:42) Magnesium (Mg) (07/24/17 20:42) Prothrombin Time / Inr (Pt) (07/24/17 20:42) Act Partial Throm Time (Ptt) (07/24/17 20:42) Troponin I (07/24/17 20:42) Chest, Single Ap (07/24/17 20:42) Ecg Monitoring (07/24/17 20:42) Iv Access Insert/Monitor (07/24/17 20:42) Oximetry (07/24/17 20:42) Oxygen Administration (07/24/17 20:42) Sodium Chloride 0.9% Flush (Ns Flush) (07/24/17 20:45) Morphine Inj (Morphine Inj) (07/24/17 20:45) Ondansetron Odt (Zofran Odt) (07/24/17 20:45) CKMB (07/24/17 20:57) CKMB% (07/24/17 20:57) Activity Bed Rest With Brp (07/24/17 22:03) Vital Signs (Adult) Q4H (07/24/17 22:03) Cardiac Rhythm .As Directed (07/24/17 22:03) Notify Dr: Other .PRN (07/24/17 22:03) Notify Parameters (07/24/17 22:03) Resp Oxygen Nasal Cannula (07/24/17 ) Ckmb (Isoenzyme) Profile (07/24/17 22:03) Ckmb (Isoenzyme) Profile (07/25/17 01:03) Troponin I (07/24/17 22:03) Troponin I (07/25/17 01:03) Electrocardiogram (07/24/17 22:03) Electrocardiogram (07/25/17 01:03) ^ Obtain (07/24/17 22:03) Sodium Chloride 0.9% Flush (Ns Flush) (07/24/17 22:15) Sodium Chloride 0.9% Flush (Ns Flush) (07/25/17 09:00) Acetaminophen (Tylenol) (07/24/17 22:15) Acetamin-Hydrocod 325-7.5 Mg ([place] 7.5 (07/24/17 22:15) Morphine Inj (Morphine Inj) (07/24/17 22:15) Temazepam (Restoril) (07/24/17 22:15) Alprazolam (Xanax) (07/24/17 22:15) Canoe Inspector / Telemetry FEI.Q8H (07/24/17 22:03) Admit Order (Ed Use Only) (07/24/17 22:03) Labs Laboratory Tests Test 07/24/17 20:57 07/24/17 21:08 White Blood Count 5.9 TH/MM3 Red Blood Count 4.51 MIL/MM3 Hemoglobin 12.4 GM/DL Hematocrit 38.1 % Mean Corpuscular Volume 84.5 FL Mean Corpuscular Hemoglobin 27.5 PG Mean Corpuscular Hemoglobin Concent 32.5 % Red Cell Distribution Width 22.1 % Platelet Count 67 TH/MM3 Mean Platelet Volume 9.3 FL Neutrophils (%) (Auto) 34.7 % Lymphocytes (%) (Auto) 57.8 % Monocytes (%) (Auto) 5.8 % Eosinophils (%) (Auto) 0.9 % Basophils (%) (Auto) 0.8 % Neutrophils # (Auto) 2.1 TH/MM3 Lymphocytes # (Auto) 3.4 TH/MM3 Monocytes # (Auto) 0.3 TH/MM3 Eosinophils # (Auto) 0.1 TH/MM3 Basophils # (Auto) 0.0 TH/MM3 CBC Comment AUTO DIFF Blood Urea Nitrogen 12 MG/DL Creatinine 1.18 MG/DL Random Glucose 116 MG/DL Calcium Level 7.9 MG/DL Magnesium Level 2.3 MG/DL Sodium Level 136 MEQ/L Potassium Level 3.7 MEQ/L Chloride Level 102 MEQ/L Carbon Dioxide Level 24.8 MEQ/L Anion Gap 9 MEQ/L Estimat Glomerular Filtration Rate 64 ML/MIN Total Creatine Kinase 138 U/L Troponin I LESS THAN 0.02 NG/ML Prothrombin Time 11.9 SEC Prothromb Time International Ratio 1.2 RATIO Activated Partial Thromboplast Time 27.2 SEC MDM Medical Decision Making Medical Screen Exam Complete: Yes Emergency Medical Condition: Yes Medical Record Reviewed: Yes Differential Diagnosis NSTEMI, unstable angina, coronary vasospasm, PE, PTX, aortic dissection, pericarditis, myocarditis, endocarditis, PNA, esophageal disease, aneurysm, musculoskeletal etiologies, anxiety, cocaine/sympathomimetic abuse Narrative Course CBC & BMP Diagram 07/24/17 20:57 Calcium Level 7.9 L, Magnesium Level 2.3 Troponins less than 0.02 INR is 1.2 Last Impressions Chest X-Ray 07/24/172041 Signed Impressions: Service Date/Time: Monday, July 24, 2017 20:49 - CONCLUSION: No acute disease. No significant change has occurred. Yandel Rosenberg MD EKG shows sinus rhythm with a rate of 69, PVC present, ST changes observed have been seen before Patient will be kept here for chest pain center evaluation. Diagnosis Primary Impression: Chest pain Qualified Codes: R07.9 - Chest pain, unspecified Admitting Information Admitting Physician Requests: Observation Dennis Kiser MD July 24, 2017 22:19
[2017-07-24 22:24] VITALS: O2SAT 100
[2017-07-24] MEDS: MORPHINE SULFATE 4 MG/ML INJ IV PUSH PRN (22:33)
[2017-07-24 22:38] LABS: ACANTHOCYTES OCC (NORMAL); OVALOCYTES 1+ (NORMAL)
[2017-07-24] MEDS: ACETAMINOPHEN/HYDROcodone 325 MG/7.5 MG TAB PO PRN (23:30)
[2017-07-24 23:48] VITALS: BP 121/69; PULSE 71; RESP 16; TEMP 97.7; O2SAT 100
[2017-07-25] VITALS (9 sets, daily range): BP systolic 107–133; BP diastolic 59–79; PULSE 63–101; RESP 16–20; TEMP 96.9–98.4; O2SAT 96–100
[2017-07-25 00:33] LABS: TROPONIN I LESS THAN 0.02 NG/ML (0.02-0.05)
[2017-07-25] MEDS: MORPHINE SULFATE 4 MG/ML INJ IV PUSH PRN ×5 (02:15→23:11)
[2017-07-25 03:46] LABS: TROPONIN I 0.02 NG/ML (0.02-0.05)
[2017-07-25] MEDS: ACETAMINOPHEN/HYDROcodone 325 MG/7.5 MG TAB PO PRN ×3 (03:48→20:00)
[2017-07-25] MEDS ORDERED: GLUCAGON 1 MG/ML VIAL OTHER PRN (07:45)
[2017-07-25] MEDS ORDERED: DEXTROSE 50% IN WATER 50 ML VIAL(D50) IV PUSH PRN (07:45)
--- NOTE | 2017-07-25 07:56 | HHI.HP ---
HPI Primary Care Physician Unknown Chief Complaint Chest pain History of Present Illness This is a 57-year-old male with history of CAD had bypass, was admitted to this facility in June and transferred to [facility] with the plan of a redo bypass the presents to ED yesterday with feeling of chest discomfort. Patient states he did not have a bypass at [facility]. States that he had one, 2, or 3 stents and was discharged 8 or 9 days later. He has not followed up with cardiology or PCP since. States he was taken off Xarelto in place on a different medication but has not filled the prescription stating that he lost his wallet. States he has been taking the medication that he had prior to being hospitalized but cannot recall those of the medicines that he was discharged on or not. States the discomfort is worse now than it ever has been. States that the discomfort worsened after getting stents. States the discomfort is constantly there. If he is doing absolutely nothing the discomfort will reduce a little bit but still is never gone away. States pain is been there for months. He is short of breath and dizzy. States he has not smoked since being discharged from [facility]. Denies diaphoresis. Review of Systems General: Patient denies fevers, chills, and recent travel. HEENT: Patient denies headache, sore throat, difficulty swallowing. Cardiovascular: Has the chest discomfort as mentioned above. Denies sensation of heart beating rapidly or irregularly. No syncope. Denies diaphoresis. Respiratory: He has been short of breath. Denies inspirational chest discomfort. Denies coughing wheezing or hemoptysis. GI: Patient denies nausea, vomiting, diarrhea, abdominal pain, bloody stools. Musculoskeletal: Patient denies joint pain or edema. Denies calf pain or edema. Neurovascular: Patient denies numbness, tingling, weakness in extremities. Denies headache. Endocrine: Denies polyuria and polydipsia. Hematologic: Denies easy bruising. Skin: Denies rash or itching. Past Family Social History Allergies: Coded Allergies: cefazolin (Unverified Allergy, Severe, Hives, 07/24/17) nitroglycerin (Unverified Adverse Reaction, Intermediate, Nausea/Vomiting , 07/24/17) MD aware. aspirin (Verified Adverse Reaction, Unknown, gi upset, 07/24/17) MD aware Past Medical History CAD status post CABG and recently had stents placed per the patient at [facility]. Hypertension, hyperlipidemia, diabetes, paroxysmal A. fib, and seizure disorder. Past Surgical History Recent cardiac catheterization per patient with stents at [facility] about 6 weeks ago. He has had a CABG. Pacemaker. Reported Medications Reported Meds & Active Scripts Active Lisinopril 5 Mg Tab 2.5 Mg PO DAILY Morphine IR (Morphine Sulfate) 15 Mg Tab 15 Mg PO Q4H PRN Ventolin Hfa 18 GM Inh (Albuterol Sulfate) 90 Mcg/Act Aer 2 Puff INH Q4H PRN Xarelto (Rivaroxaban) 20 Mg Tab 20 Mg PO DAILY Blood Glucose System Donny (Blood Glucose Monitoring Suppl) 1 Kit Kit Kit Glipizide 5 Mg Tab 5 Mg PO DAILY Take 30 minutes before a meal Reported Metoprolol Succinate ER 24 HR (Metoprolol Succinate) 50 Mg Tab 50 Mg PO DAILY Gabapentin 100 Mg Cap 100 Mg PO TID Levetiracetam 1,000 Mg Tab 1,000 Mg PO BID Simvastatin 10 Mg Tab 10 Mg PO DAILY Active Ordered Medications Current Medications Medications (Trade) Dose Ordered Sig/Viky Route Start Time Stop Time Status Last Admin (NS Flush) 2 ml UNSCH PRN IVF 07/24/17 20:45 (NS Flush) 2 ml UNSCH PRN IV FLUSH 07/24/17 22:15 (NS Flush) 2 ml BID IV FLUSH 07/25/17 09:00 (Tylenol) 500 mg Q4H PRN PO 07/24/17 22:15 ([place] 7.5-325 Mg) 1 tab Q4H PRN PO 07/24/17 22:15 07/25/17 03:48 (Morphine Inj) 2 mg Q4H PRN IV PUSH 07/24/17 22:15 07/25/17 06:09 (Restoril) 15 mg HS PRN PO 07/24/17 22:15 (Xanax) 0.25 mg Q8H PRN PO 07/24/17 22:15 (NovoLOG SUPPLEMENTAL SCALE) 1 ACHS SLIDING SCALE SQ 07/25/17 08:00 (D50w (Vial) Inj) 50 ml UNSCH PRN IV PUSH 07/25/17 07:45 (Glucagon Inj) 1 mg UNSCH PRN OTHER 07/25/17 07:45 Family History There is family history of CAD. Social History Quit smoking about 1 month ago. He was smoking for approximately 25-30 years prior. Has occasional alcohol. Denies illicit drug use. Physical Exam Vital Signs Vital Signs Date Time Temp Pulse Resp B/P (MAP) Pulse Ox O2 Delivery O2 Flow Rate FiO2 07/25/17 02:46 98.4 67 16 107/59 (75) 96 07/24/17 23:48 97.7 71 16 121/69 (86) 100 07/24/17 22:24 100 Nasal Cannula 2.00 07/24/17 20:59 64 16 100 Nasal Cannula 2.00 07/24/17 20:59 100 Nasal Cannula 2.00 07/24/17 20:28 72 16 100 Room Air 07/24/17 20:20 98.0 72 18 115/81 (92) 100 Physical Exam GENERAL: When I went to evaluate the chest wall for tenderness, the patient swung his arm towards me as if he was about to strike me. I was able to stop the arm before he is able to get off a swing. This is a well-nourished, well- developed patient, in no apparent distress. Patient speaks in clear complete sentences. Patient is pleasant. HEENT: Head is atraumatic and normocephalic. Neck is supple without lymphadenopathy and trachea is midline. No JVD or carotid bruits. CARDIOVASCULAR: GRADE 2 SYSTOLLIC MURMUR. Regular rate and rhythm without gallops, or rubs. RESPIRATORY: Scattered wheezing. The chest was quite tender over the sternum. Before even touch the area he was already grimacing and with even lightly touching the area he pushed my arm away. Breath sounds equal bilaterally. No wheezes, rales, or rhonchi. No use of accessory muscles. GASTROINTESTINAL: Abdomen is nontender, nondistended. Abdomen soft. No obvious pulsatile mass or bruit. No CVA tenderness. Strong femoral pulses bilaterally. Normal bowel sounds in all quadrants. MUSCULOSKELETAL: Patient is moving upper and lower extremities freely. No calf tenderness or edema, no Homans sign. Strong pulses in upper and lower extremities. NEUROLOGICAL: Patient is alert and oriented. Cranial nerves 2-12 are grossly intact. No focal deficits and speech is clear. SKIN: No rash and turgor is normal. Laboratory Laboratory Tests Test 07/24/17 20:57 07/24/17 21:08 07/24/17 23:40 5/13/18 02:30 White Blood Count 5.9 Red Blood Count 4.51 Hemoglobin 12.4 Hematocrit 38.1 Mean Corpuscular Volume 84.5 Mean Corpuscular Hemoglobin 27.5 Mean Corpuscular Hemoglobin Concent 32.5 Red Cell Distribution Width 22.1 Platelet Count 67 Mean Platelet Volume 9.3 Neutrophils (%) (Auto) 34.7 Lymphocytes (%) (Auto) 57.8 Monocytes (%) (Auto) 5.8 Eosinophils (%) (Auto) 0.9 Basophils (%) (Auto) 0.8 Neutrophils # (Auto) 2.1 Lymphocytes # (Auto) 3.4 Monocytes # (Auto) 0.3 Eosinophils # (Auto) 0.1 Basophils # (Auto) 0.0 CBC Comment AUTO DIFF Differential Comment AUTO DIFF CONFIRMED Platelet Estimate LOW Platelet Morphology Comment NORMAL Ovalocytes 1+ Acanthocytes OCC Blood Urea Nitrogen 12 Creatinine 1.18 Random Glucose 116 Calcium Level 7.9 Magnesium Level 2.3 Sodium Level 136 Potassium Level 3.7 Chloride Level 102 Carbon Dioxide Level 24.8 Anion Gap 9 Estimat Glomerular Filtration Rate 64 Total Creatine Kinase 138 119 119 Creatine Kinase MB 1.9 1.5 1.7 Troponin I LESS THAN 0.02 LESS THAN 0.02 0.02 Prothrombin Time 11.9 Prothromb Time International Ratio 1.2 Activated Partial Thromboplast Time 27.2 Result Diagram: 07/24/17205607/24/172056 Imaging Last 48 hours Impressions Chest X-Ray 07/24/172041 Signed Impressions: Service Date/Time: Monday, July 24, 2017 20:49 - CONCLUSION: No acute disease. No significant change has occurred. Yandel Rosenberg MD Course EKGs sinus rhythm with diffuse ST-T changes that are present on prior EKG. Caprini VTE Risk Assessment Caprini VTE Risk Assessment: No/Low Risk (score <= 1) Caprini Risk Assessment Model Point Value = 1 Point Value = 2 Point Value = 3 Point Value = 5 Age 41-60 Minor surgery BMI > 25 kg/m2 Swollen legs Varicose veins or History of unexplained or recurrent spontaneous Oral contraceptives or hormone replacement Sepsis (< 1 month) Serious lung disease, including pneumonia (< 1 month) Abnormal pulmonary function Acute myocardial infarction Congestive heart failure (< 1 month) History of inflammatory bowel disease Medical patient at bed rest Age 61-74 Arthroscopic surgery Major open surgery (> 45 min) Laparoscopic surgery (> 45 min) Malignancy Confined to bed (> 72 hours) Immobilizing plaster cast Central venous access Age >= 75 History of VTE Family history of VTE Factor V Leiden Prothrombin [id number] Lupus anticoagulant Anticardiolipin antibodies Elevated serum homocysteine Heparin-induced thrombocytopenia Other congenital or acquired thrombophilia Stroke (< 1 month) Elective arthroplasty Hip, pelvis, or leg fracture Acute spinal cord injury (< 1 month) Prophylaxis Regimen Total Risk Factor Score Risk Level Prophylaxis Regimen 0-1 Low Early ambulation 2 Moderate Order ONE of the following: *Sequential Compression Device (SCD) *Heparin 5000 units SQ BID 3-4 Higher Order ONE of the following medications: *Heparin 5000 units SQ TID *Enoxaparin/Lovenox 40 mg SQ daily (WT < 150 kg, CrCl > 30 mL/min) *Enoxaparin/Lovenox 30 mg SQ daily (WT < 150 kg, CrCl > 10-29 mL/min) *Enoxaparin/Lovenox 30 mg SQ BID (WT < 150 kg, CrCl > 30 mL/min) AND/OR *Sequential Compression Device (SCD) 5 or more Highest Order ONE of the following medications: *Heparin 5000 units SQ TID (Preferred with Epidurals) *Enoxaparin/Lovenox 40 mg SQ daily (WT < 150 kg, CrCl > 30 mL/min) *Enoxaparin/Lovenox 30 mg SQ daily (WT < 150 kg, CrCl > 10-29 mL/min) *Enoxaparin/Lovenox 30 mg SQ BID (WT < 150 kg, CrCl > 30 mL/min) AND *Sequential Compression Device (SCD) Assessment and Plan Assessment and Plan * Chest pain: Patient does have history of CAD with history of bypass and reports having stents at [facility] although he was transferred for evaluation bypass. I requested records. It does not sound as if the patient is completely compliant with all medication. States Xarelto was discontinued at [facility] and placed on on the medication however he did not fill it but the cannot recall what the medication was. We will attempt to get a list of medications so they may continue. He has not follow-up with cardiology or PCP since being discharged from [facility]. His discomfort has been constant for months. Chest wall is very tender and he states that is the discomfort that he has been having. Patient has had serial cardiac enzymes for ruling out purposes. EKGs are similar to prior visit. Further plan pending Dr. Servin's evaluation. Likely no stress testing at this time, patient will need to follow- up with cardiology outpatient basis and take medications as instructed to him. * Hypertension: Continue medication. * Hyperlipidemia: Continue medication. * Diabetes: Patient will be on sliding scale insulin coverage. Follow diabetic diet. Resume medication at discharge. * Seizure disorder: Continue medication. * Paroxysmal A. fib: Resume medication. Patient is stable at this time. He is agreeable to this plan. Alejandro Perez July 25, 2017 07:56
[2017-07-25] MEDS: INSULIN ASPART SUPPLEMENTAL SCALE SQ SCH ×4 (08:00→21:00)
[2017-07-25] MEDS ORDERED: ONDANSETRON HCL 4 MG/2 ML VIAL ONE (08:15)
[2017-07-25] MEDS ORDERED: GLIP5TAB8 PO (08:20)
--- NOTE | 2017-07-25 08:28 | PD.CARD.PN ---
Subjective Subjective Remarks Patient was seen and examined personally accompanied by BETO. Medical records were reviewed, laboratory and radiographic data were reviewed and the patient was discussed to establish plan therapy. Patient appears to be pain medication seeking may also have a problem with substance or alcohol abuse. Physical examination shows diffuse bruising from "falls" but also an enlarged liver. He admits to history of alcoholism but denies heavy abuse at this time. He lives alone and although he has established physicians he has shown a pattern of coming to the emergency room for pain medication rather than seeking care through his established physicians. He was recently treated at [facility] with no stents placed but states that he was not given a follow-up and is requesting we refill his medicines because he lost him. It is interesting that he cannot recall the physician's name who treated him at [facility]. Also pertinent to note that he appeared to try and take a "swing" at [facility] when he attempted to examine his chest. Also pertinent to note that he asked for morphine to "knock me out". Objective Medications Current Medications Medications (Trade) Dose Ordered Sig/Viky Route Start Time Stop Time Status Last Admin (NS Flush) 2 ml UNSCH PRN IVF 07/24/17 20:45 (NS Flush) 2 ml UNSCH PRN IV FLUSH 07/24/17 22:15 (NS Flush) 2 ml BID IV FLUSH 07/25/17 09:00 (Tylenol) 500 mg Q4H PRN PO 07/24/17 22:15 (Sanibel 7.5-325 Mg) 1 tab Q4H PRN PO 07/24/17 22:15 07/25/17 03:48 (Morphine Inj) 2 mg Q4H PRN IV PUSH 07/24/17 22:15 07/25/17 06:09 (Restoril) 15 mg HS PRN PO 07/24/17 22:15 (Xanax) 0.25 mg Q8H PRN PO 07/24/17 22:15 (NovoLOG SUPPLEMENTAL SCALE) 1 ACHS SLIDING SCALE SQ 07/25/17 08:00 (D50w (Vial) Inj) 50 ml UNSCH PRN IV PUSH 07/25/17 07:45 (Glucagon Inj) 1 mg UNSCH PRN OTHER 07/25/17 07:45 Vital Signs / I&O Vital Signs Date Time Temp Pulse Resp B/P (MAP) Pulse Ox O2 Delivery O2 Flow Rate FiO2 07/25/17 08:10 63 07/25/17 02:46 98.4 67 16 107/59 (75) 96 07/24/17 23:48 97.7 71 16 121/69 (86) 100 07/24/17 22:24 100 Nasal Cannula 2.00 07/24/17 20:59 64 16 100 Nasal Cannula 2.00 07/24/17 20:59 100 Nasal Cannula 2.00 07/24/17 20:28 72 16 100 Room Air 07/24/17 20:20 98.0 72 18 115/81 (92) 100 Physical Exam Minimally cooperative patient who appears to be resting comfortably but complains of pain. Head eyes ears nose and throat unremarkable aside from small pupils that did not respond to light. Mouth mucous membranes moist and well papillated no lesions Neck supple no JVD masses nodes or bruits Chest is exquisitely tender over the entire left chest extending over the anterior abdomen and back. There is a well-healed surgical scar in the mid sternum and some bruising over the chest wall. No rales wheezes or rhonchi Cardiovascular pacer scars in both right and left shoulders with a pacer in the right chest. There is a 2/6 systolic murmur but no gallop or rub. The abdomen is discretely tender with a large bruise on the right midportion that he claims came from a fall. The liver is 3 fingerbreadths below the margin and firm Laboratory Laboratory Tests Test 07/24/17 20:57 07/24/17 21:08 07/24/17 23:40 07/25/17 02:30 White Blood Count 5.9 TH/MM3 Red Blood Count 4.51 MIL/MM3 Hemoglobin 12.4 GM/DL Hematocrit 38.1 % Mean Corpuscular Volume 84.5 FL Mean Corpuscular Hemoglobin 27.5 PG Mean Corpuscular Hemoglobin Concent 32.5 % Red Cell Distribution Width 22.1 % Platelet Count 67 TH/MM3 Mean Platelet Volume 9.3 FL Neutrophils (%) (Auto) 34.7 % Lymphocytes (%) (Auto) 57.8 % Monocytes (%) (Auto) 5.8 % Eosinophils (%) (Auto) 0.9 % Basophils (%) (Auto) 0.8 % Neutrophils # (Auto) 2.1 TH/MM3 Lymphocytes # (Auto) 3.4 TH/MM3 Monocytes # (Auto) 0.3 TH/MM3 Eosinophils # (Auto) 0.1 TH/MM3 Basophils # (Auto) 0.0 TH/MM3 CBC Comment AUTO DIFF Differential Comment AUTO DIFF CONFIRMED Platelet Estimate LOW Platelet Morphology Comment NORMAL Ovalocytes 1+ Acanthocytes OCC Blood Urea Nitrogen 12 MG/DL Creatinine 1.18 MG/DL Random Glucose 116 MG/DL Calcium Level 7.9 MG/DL Magnesium Level 2.3 MG/DL Sodium Level 136 MEQ/L Potassium Level 3.7 MEQ/L Chloride Level 102 MEQ/L Carbon Dioxide Level 24.8 MEQ/L Anion Gap 9 MEQ/L Estimat Glomerular Filtration Rate 64 ML/MIN Total Creatine Kinase 138 U/L 119 U/L 119 U/L Creatine Kinase MB 1.9 NG/ML 1.5 NG/ML 1.7 NG/ML Troponin I LESS THAN 0.02 NG/ML LESS THAN 0.02 NG/ML 0.02 NG/ML Prothrombin Time 11.9 SEC Prothromb Time International Ratio 1.2 RATIO Activated Partial Thromboplast Time 27.2 SEC Imaging Last 24 hours Impressions Chest X-Ray 07/24/172041 Signed Impressions: Service Date/Time: Monday, July 24, 2017 20:49 - CONCLUSION: No acute disease. No significant change has occurred. Yandel Rosenberg MD Assessment and Plan Assessment and Plan Patient appears to be chronic pain medication seeking, probable continuing alcoholism, and probably underlying sociopathic disorder. He is ruled out currently, his acute pain will be treated inpatient but no additional outpatient medications will be given. He is instructed to call [facility] to discuss his need for renewed medications with him. Discussed Condition With Plan and course was discussed with Saad Jennings MD July 25, 2017 08:28
--- NOTE | 2017-07-25 08:28 | HHI.DCPOC ---
Discharge Care Plan Diagnosis: (1) Chest pain (2) CAD (coronary artery disease) (3) H/O heart artery stent (4) Hx of CABG (5) Hypertension (6) Hyperlipidemia (7) Diabetes mellitus (8) COPD (chronic obstructive pulmonary disease) (9) Thrombocytopenia (10) Paroxysmal A-fib (11) Seizure disorder (12) Alcohol use Goals to Promote Your Health * To prevent worsening of your condition and complications * To maintain your health at the optimal level Directions to Meet Your Goals Take your medications as prescribed Follow your dietary instruction Follow activity as directed Keep your appointments as scheduled Take your immunizations and boosters as scheduled If your symptoms worsen call your PCP, if no PCP go to Urgent Care Center or Emergency Room Smoking is Dangerous to Your Health. Avoid second hand smoke Call the 24-hour hour crisis hotline for domestic abuse at Alejandro Perez July 25, 2017 08:28
[2017-07-25] MEDS ORDERED: MORPHINE SULFATE 4 MG/ML INJ IV PUSH ONE (08:30)
[2017-07-25] MEDS ORDERED: RESP: ALBUTEROL 2.5 MG/IPRATROPIUM 0.5 MG NEB (SCH) NEB ONE (08:30)
[2017-07-25] MEDS: SODIUM CHLORIDE 0.9% FLUSH 10 ML FLUSH IV FLUSH SCH ×2 (09:00→20:00)
[2017-07-25] MEDS ORDERED: ONDANSETRON ODT 4 MG TAB PO ONE (09:45)
[2017-07-25] MEDS ORDERED: SODIUM CHLORID 0.9% 500 ML INJ 500 ML IV ONE (09:45)
[2017-07-25] MEDS ORDERED: levETIRAcetam 500 MG TAB PO ONE (11:30)
[2017-07-25] MEDS ORDERED: GABAPENTIN 100 MG CAP PO ONE (11:30)
[2017-07-25] MEDS ORDERED: RESP: ALBUTEROL 2.5 MG/IPRATROPIUM 0.5 MG NEB (PRN) INH (12:00)
[2017-07-25] MEDS ORDERED: REGADENOSON INJ 0.4 MG/5 ML SYR ONE (12:45)
--- NOTE | 2017-07-25 12:50 | EKG ---
Date Performed: 07/25/2017 Time Performed: 02:51:35 PTAGE: 57 years EKG: Sinus rhythm MODERATE INTRAVENTRICULAR CONDUCTION DELAY ST DEVIATION AND MODERATE T-WAVE ABNORMALITY, CONSIDER AN TEROLATERAL ISCHEMIA ST DEVIATION AND MODERATE T-WAVE ABNORMALITY, CONSIDER INFERIOR ISCHEMIA ABNORMA L ECG No significant change PREVIOUS TRACING : 07/24/2017 23.58 DOCTOR: Saad Servin Interpretating Date/Time 07/25/2017 12:50:02
--- NOTE | 2017-07-25 12:52 | EKG ---
Date Performed: 07/24/2017 Time Performed: 23:58:07 PTAGE: 57 years EKG: ECTOPIC ATRIAL RHYTHM MODERATE INTRAVENTRICULAR CONDUCTION DELAY MODERATE T-WAVE ABNORMALIT Y, CONSIDER ANTEROLATERAL ISCHEMIA MODERATE T-WAVE ABNORMALITY, CONSIDER INFERIOR ISCHEMIA ABNORMAL E CG No significant change PREVIOUS TRACING : 07/24/2017 20.20 DOCTOR: Saad Servin Interpretating Date/Time 07/25/2017 12:50:46
--- NOTE | 2017-07-25 12:53 | EKG ---
Date Performed: 07/24/2017 Time Performed: 20:20:27 PTAGE: 57 years EKG: Sinus rhythm WITH OCCASIONAL VENTRICULAR PREMATURE COMPLEXES MODERATE INTRAVENTRICULAR CONDUCTION DELAY MODERATE T-WAVE ABNORMALITY, CONSIDER LATERAL ISCHEMIA ABNORMAL ECG A single PVC but otherwise no significant change PREVIOUS TRACING : 06/26/2017 08.40 DOCTOR: Saad Servin Interpretating Date/Time 07/25/2017 12:51:19
[2017-07-25] MEDS ORDERED: CLOPIDOGREL 300 MG TAB PO ONE (13:15)
[2017-07-25] MEDS ORDERED: ASPIRIN 325 MG TAB PO SCH (13:30)
[2017-07-25] MEDS ORDERED: LORazepam 2 MG/ML VIAL IV PUSH PRN ×5 (13:45→15:30)
--- NOTE | 2017-07-25 14:28 | RADRPT ---
EXAM DATE/TIME: 07/25/2017 12:40 [facility] COMPARISON: MYOCARDIAL PERF PHARM SPECT, GATED W/EF, November 26, 2016, 10:57. INDICATIONS : Retrosternal chest pain radiating to the left arm with dyspnea. Angina. Atrial fibrillation. DOSE: 26.4 mCi Tc99m Myoview at stress. 8.8 mCi Tc99m Myoview at rest. 0.4 mg Lexiscan STRESS SYMPTOMS: Nausea and dizziness. EJECTION FRACTION: 37% MEDICAL HISTORY : Myocardial infarction. Chronic obstructive pulmonary disease. Congestive heart failure. Hypertension. Smoker. SURGICAL HISTORY : Abdominal aortic aneurysm repair. CABG Coronary artery stent. ENCOUNTER: Initial ACUITY: 3 weeks PAIN SCALE: 6/10 LOCATION: Retrosternal chest TECHNIQUE: The patient underwent pharmacologic stress with infusion of prescribed dose. Continuous ECG tracing was monitored during stress. Gated SPECT imaging was performed after stress and conventional SPECT i maging was performed at rest. The examination was performed on a SPECT/CT scanner, both attenuation and non-corrected datasets were reviewed. FINDINGS: The best perfused myocardium is the high anterior septal region. There is enlarged fixed defect in t he apical anterior segment. There is large area of redistribution involving the lateral wall in mid ventricle extending towards t he base. Secondary redistribution is present in the inferior wall towards the base. Further depression of the ejection fraction at 37% with inferior wall hypokinesis. CONCLUSION: Stress-induced ischemia as above. Fixed defect as above. Further depression of the ejection fractio n. RISK CATEGORY: Intermediate (1-3% Annual Mortality Rate) Louis Rae MD FACR on July 25, 2017 at 14:21 Board Certified Radiologist. This report was verified electronically.
[2017-07-25] MEDS: RANOLAZINE 500 MG EXTENDED RELEASE TAB PO SCH ×2 (15:23→20:00)
[2017-07-25] MEDS ORDERED: LORazepam 1 MG TAB PO PRN (15:30)
[2017-07-25] MEDS ORDERED: HALOPERIDOL LACTATE 5 MG/ML AMP IM PRN (15:30)
[2017-07-25] MEDS ORDERED: LORazepam 2 MG TAB PO PRN (15:30)
[2017-07-25] MEDS ORDERED: FLUMAZENIL 0.5 MG/5 ML VIAL IV PUSH PRN (15:30)
--- NOTE | 2017-07-25 15:31 | HHI.PR ---
Addendum To [facility]PAS Progress Not Reason for addendum: Corrected documentation, Additonal documentation (Records from [facility] reviewed patient had stenting of the LAD and left main plan to continue aspirin, Plavix and Xarelto recent history of A. fib for 1 month then discontinue aspirin however patient has been noncompliant. He has been loaded with Plavix in the chest pain center. Cardiology has been consulted because of abnormal stress test. A1c 4.7 patient not on hypoglycemics.) Joe Real MD July 25, 2017 15:31
[2017-07-25] MEDS: MULTIVITAMINS/MINERALS THERAPEUTIC TAB PO SCH (15:47)
[2017-07-25] MEDS: FOLIC ACID 1 MG TAB PO SCH (15:47)
[2017-07-25] MEDS: ONDANSETRON HCL 4 MG/2 ML VIAL IV PUSH PRN ×2 (15:47→20:53)
[2017-07-25] MEDS: THIAMINE HCL 100 MG TAB PO SCH (15:47)
--- NOTE | 2017-07-25 16:27 | MB ---
cc: Bruno Cardoso MD DATE: 07/25/2017 HISTORY OF PRESENT ILLNESS: Mr. Robertson is a 57-year-old white male with history of coronary artery disease, 3-vessel bypass, was admitted in June and transferred to [facility] for re-do bypass. The patient did not have bypass, but his LAD and left main were stented using drug-eluting stents. He was started on Xarelto, Plavix and aspirin with the plan of dual therapy in 1 month. He lost his prescriptions and was not taking any of his medications. He presented with left precordial and left shoulder pain, which is reproducible with chest palpation and motion. He has had this pain for several months. He states he quit smoking. PAST MEDICAL HISTORY: Coronary artery disease as above. Cardiac catheterization last month showed 60% left main, 75% LAD, mild disease in circumflex and second marginal, mild disease in the ramus, total occlusion of the TAPIA to LAD, vein graft to marginal and vein graft to posterior left ventricular branch. Drug-eluting stents were placed to the left main and LAD, which has resolved. Past medical history is also positive for type 2 diabetes mellitus, COPD, seizures, alcohol use, ischemic cardiomyopathy with moderate to severe left ventricular systolic dysfunction, 3-vessel bypass as above, atrial fibrillation status post ablation, thrombocytopenia, hypertension, dyslipidemia, history of ICD placement. MEDICATIONS: The patient was supposed to take: 1. Simvastatin. 2. Levothyroxine. 3. Gabapentin. 4. Metoprolol. 5. Glipizide. 6. Xarelto. 7. Ventolin. 8. Morphine. 9. Lisinopril. 10. Plavix. 11. aspirin. He has not been taking Plavix or aspirin. ALLERGIES: CEFAZOLIN NITROGLYCERIN. He apparently had GI upset with ASPIRIN. SOCIAL HISTORY: The patient quit smoking 1 month ago. He drinks alcohol occasionally. FAMILY HISTORY: Heart disease. REVIEW OF SYSTEMS: Otherwise negative. PHYSICAL EXAMINATION: VITAL SIGNS: Blood pressure 112/60, pulse 69 and regular. HEENT: Negative. 2+ carotid upstrokes, no bruits. LUNGS: Clear. HEART: Regular with no murmur, gallop or rub. The left precordial chest pain is fully reproducible with chest palpation and is of noncardiac, likely musculoskeletal origin. ABDOMEN: Soft. No bruits. EXTREMITIES: Without edema. 1-2+ peripheral pulses. NEUROLOGIC: Grossly nonfocal. LABORATORY DATA: EKG was reviewed and showed normal sinus rhythm, PVCs, intraventricular conduction delay, nonspecific T-wave changes. LABS: Hemoglobin 12.4, potassium 3.7, creatinine 1.2. Troponin negative x3. DIAGNOSES: 1. Noncardiac chest pain. 2. Coronary artery disease, history of three-vessel coronary artery bypass and a recent left main and left anterior descending stenting at [facility]. 3. Ischemic cardiomyopathy with moderate to severe left ventricular systolic dysfunction. 4. History of implantable cardioverter defibrillator placement. 5. Paroxysmal atrial fibrillation, status post ablation. 6. Chronic obstructive pulmonary disease. 7. History of smoking and heavy alcohol use. 8. Hypertension. 9. Diabetes mellitus 10. Dyslipidemia. 11. Noncompliance with medications. DISPOSITION: Mr. Robertson failed to take his platelet inhibitors after his left main and LAD stenting. I recommend to start Plavix and load him with medications, 600 mg p.o. I also recommend to continue anticoagulation with Xarelto. His chest pain is atypical, noncardiac and likely of musculoskeletal origin. He has been ruled out for myocardial infarction with enzymes and therefore acute stent thrombosis is highly unlikely. His myocardial perfusion study shows lateral ischemia and inferior infarction with also fixed anteroapical defect. There is no reversible defect in the territory of recently stented artery territories. I recommend to continue therapy for congestive heart failure. I recommend to continue aggressive modification of his cardiac risk factors. I will follow this patient for Cardiology during this hospital physician. MD ELLI Jaquez/JOSEPH , 03:37 PM , 04:26 PM
[2017-07-25] MEDS: GABAPENTIN 100 MG CAP PO SCH (18:31)
[2017-07-25 18:44] LABS: ALBUMIN 3.4 GM/DL (3.4-5.0); ALT (GPT) 71 U/L (12-78); AST (GOT) 158 U/L (15-37); DIRECT BILIRUBIN ADULT 0.7 MG/DL (0.0-0.2)
[2017-07-25 18:46] LABS: ALKALINE PHOSPHATASE 312 U/L (45-117); INDIRECT BILIRUBIN 0.8 MG/DL (0.0-0.8); TOTAL BILIRUBIN ADULT 1.5 MG/DL (0.2-1.0); TOTAL PROTEIN 7.4 GM/DL (6.4-8.2)
[2017-07-25] MEDS: METOPROLOL TARTRATE 25 MG TAB PO SCH (20:00)
[2017-07-25] MEDS: levETIRAcetam 500 MG TAB PO SCH (20:00)
[2017-07-25] MEDS ORDERED: ATORVASTATIN 40 MG TAB PO SCH (21:00)
[2017-07-26 00:01] VITALS: BP 127/68; PULSE 75; RESP 17; TEMP 98.2; O2SAT 95
[2017-07-26] MEDS: ACETAMINOPHEN/HYDROcodone 325 MG/7.5 MG TAB PO PRN ×2 (02:23→09:27)
[2017-07-26 03:36] VITALS: BP 123/69; PULSE 75; RESP 16; TEMP 98; O2SAT 97
[2017-07-26] MEDS: MORPHINE SULFATE 4 MG/ML INJ IV PUSH PRN (04:14)
[2017-07-26 07:06] VITALS: BP 125/69; PULSE 78; RESP 20; TEMP 98.1; O2SAT 96
[2017-07-26 07:30] LABS: CHOLESTEROL/ HDL RATIO 1.92 RATIO; HDL CHOLESTEROL 69.2 MG/DL (40.0-60.0)
[2017-07-26] MEDS: INSULIN ASPART SUPPLEMENTAL SCALE SQ SCH (08:00)
--- NOTE | 2017-07-26 08:26 | HHI.PR ---
Subjective Remarks Follow up atypical chest pain July 26, 2017-patient seen and examined, ACS was ruled out yesterday and patient chest pain was deemed to be noncardiac mostly musculoskeletal which patient still complaining of. No acute event overnight. Objective Vitals Vital Signs Date Time Temp Pulse Resp B/P (MAP) Pulse Ox O2 Delivery O2 Flow Rate FiO2 07/26/17 07:06 98.1 78 20 125/69 (87) 96 07/26/17 03:36 98.0 75 16 123/69 (87) 97 07/26/17 00:01 98.2 75 17 127/68 (87) 95 07/25/17 20:06 98.1 101 16 133/79 (97) 99 07/25/17 19:45 98 07/25/17 16:54 100 21 07/25/17 16:41 96.9 77 20 130/73 (92) 96 07/25/17 16:16 75 07/25/17 12:20 69 I/O 07/25/17 07/25/17 07/25/17 07/26/17 07/26/17 07/26/17 07:00 15:00 23:00 07:00 15:00 23:00 Output Total 300 ml Balance -300 ml Output Urine Total 300 ml Result Diagram: 07/24/17205607/24/172056 Imaging Last Impressions Myocardial Perfusion Scan Nuc Med 07/25/17 0000 Signed Impressions: Service Date/Time: Tuesday, July 25, 2017 12:40 - CONCLUSION: Stress-induced ischemia as above. Fixed defect as above. Further depression of the ejection fraction. RISK CATEGORY: Intermediate (1-3%% Annual Mortality Rate) Louis Rae MD FACR Chest X-Ray 07/24/172041 Signed Impressions: Service Date/Time: Monday, July 24, 2017 20:49 - CONCLUSION: No acute disease. No significant change has occurred. Yandel Rosenberg MD Objective Remarks GENERAL: NAD SKIN: Warm and dry. HEAD: Normocephalic. EYES: No scleral icterus. No injection or drainage. NECK: Supple, trachea midline. No JVD or lymphadenopathy. CARDIOVASCULAR: Regular rate and rhythm without murmurs, gallops, or rubs. RESPIRATORY: Breath sounds equal bilaterally. No accessory muscle use. GASTROINTESTINAL: Abdomen soft, non-tender, nondistended. MUSCULOSKELETAL: No cyanosis, or edema. BACK: Nontender without obvious deformity. No CVA tenderness. Procedures none A/P Problem List: (1) Chest pain ICD Code: R07.9 - Chest pain, unspecified Status: Resolved (2) Hx of CABG ICD Code: Z95.1 - Presence of aortocoronary bypass graft Status: Chronic (3) H/O heart artery stent ICD Code: Z95.5 - Presence of coronary angioplasty implant and graft (4) Hypertension ICD Code: I10 - Essential (primary) hypertension (5) Cardiomyopathy ICD Code: I42.9 - Cardiomyopathy Status: Chronic (6) Hyperlipidemia ICD Code: E78.5 - Hyperlipidemia, unspecified (7) Diabetes mellitus ICD Code: E11.9 - Type 2 diabetes mellitus without complications Assessment and Plan 57-year-old man with Atypical chest pain: Mostly musculoskeletal therefore noncardiac; He has been ruled out for myocardial infarction with enzymes and therefore acute stent thrombosis is highly unlikely. His myocardial perfusion study shows lateral ischemia and inferior infarction with also fixed anteroapical defect. There is no reversible defect in the territory of recently stented artery territories patient will need to follow-up with cardiology outpatient basis and take medications as instructed to him. Patient was loaded with Plavix Hypertension: Continue medication including Lopressor Hyperlipidemia: Continue medication including Lipitor Diabetes: Continue insulin sliding scale and outpatient medications; however A1c 4.7 Seizure disorder: Continue medication including Keppra Paroxysmal A. fib: Continue outpatient medications including Lopressor and Xarelto Problem Qualifiers (1) Chest pain: Qualified Codes: R07.9 - Chest pain, unspecified Sebastian Loza MD July 26, 2017 08:26
--- NOTE | 2017-07-26 08:36 | HHI.DS ---
Discharge Summary Admission Date July 24, 2017 at 22:06 Discharge Date: July 26, 2017 Admitting Diagnosis Chest Pain (1) Chest pain ICD Code: R07.9 - Chest pain, unspecified Status: Resolved (2) Hx of CABG ICD Code: Z95.1 - Presence of aortocoronary bypass graft Status: Chronic (3) H/O heart artery stent ICD Code: Z95.5 - Presence of coronary angioplasty implant and graft (4) Hypertension ICD Code: I10 - Essential (primary) hypertension (5) Cardiomyopathy ICD Code: I42.9 - Cardiomyopathy Status: Chronic (6) Hyperlipidemia ICD Code: E78.5 - Hyperlipidemia, unspecified (7) Diabetes mellitus ICD Code: E11.9 - Type 2 diabetes mellitus without complications Procedures none Brief History - From Admission This is a 57-year-old male with history of CAD had bypass, was admitted to this facility in June and transferred to [facility] with the plan of a redo bypass the presents to ED yesterday with feeling of chest discomfort. Patient states he did not have a bypass at [facility]. States that he had one, 2, or 3 stents and was discharged 8 or 9 days later. He has not followed up with cardiology or PCP since. States he was taken off Xarelto in place on a different medication but has not filled the prescription stating that he lost his wallet. States he has been taking the medication that he had prior to being hospitalized but cannot recall those of the medicines that he was discharged on or not. States the discomfort is worse now than it ever has been. States that the discomfort worsened after getting stents. States the discomfort is constantly there. If he is doing absolutely nothing the discomfort will reduce a little bit but still is never gone away. States pain is been there for months. He is short of breath and dizzy. States he has not smoked since being discharged from [facility]. Denies diaphoresis. CBC/BMP: 07/24/17205607/24/172056 Significant Findings Laboratory Tests Test 07/24/17 20:57 07/24/17 21:08 07/24/17 23:40 07/25/17 02:30 Hemoglobin 12.4 GM/DL (13.0-17.0) Hematocrit 38.1 % (39.0-51.0) Red Cell Distribution Width 22.1 % (11.6-17.2) Platelet Count 67 TH/MM3 (150-450) Lymphocytes (%) (Auto) 57.8 % (9.0-44.0) Platelet Estimate LOW (NORMAL) Ovalocytes 1+ (NORMAL) Random Glucose 116 MG/DL (74-106) Calcium Level 7.9 MG/DL (8.5-10.1) Estimat Glomerular Filtration Rate 64 ML/MIN (>89) Troponin I LESS THAN 0.02 NG/ML LESS THAN 0.02 NG/ML Prothrombin Time 11.9 SEC (9.8-11.6) Test 07/25/17 16:55 07/26/17 06:27 Total Bilirubin 1.5 MG/DL (0.2-1.0) Direct Bilirubin 0.7 MG/DL (0.0-0.2) Aspartate Amino Transf (AST/SGOT) 158 U/L (15-37) Alkaline Phosphatase 312 U/L (45-117) HDL Cholesterol 69.2 MG/DL (40.0-60.0) Imaging Last Impressions Myocardial Perfusion Scan Nuc Med 07/25/17 0000 Signed Impressions: Service Date/Time: Tuesday, July 25, 2017 12:40 - CONCLUSION: Stress-induced ischemia as above. Fixed defect as above. Further depression of the ejection fraction. RISK CATEGORY: Intermediate (1-3%% Annual Mortality Rate) Louis Rae MD FACR Chest X-Ray 07/24/172041 Signed Impressions: Service Date/Time: Monday, July 24, 2017 20:49 - CONCLUSION: No acute disease. No significant change has occurred. Yandel Rosenberg MD PE at Discharge GENERAL: NAD SKIN: Warm and dry. HEAD: Normocephalic. EYES: No scleral icterus. No injection or drainage. NECK: Supple, trachea midline. No JVD or lymphadenopathy. CARDIOVASCULAR: Regular rate and rhythm without murmurs, gallops, or rubs. RESPIRATORY: Breath sounds equal bilaterally. No accessory muscle use. GASTROINTESTINAL: Abdomen soft, non-tender, nondistended. MUSCULOSKELETAL: No cyanosis, or edema. BACK: Nontender without obvious deformity. No CVA tenderness. Hospital Course While in hospital, patient was treated for: Atypical chest pain: Mostly musculoskeletal therefore noncardiac; He has been ruled out for myocardial infarction with enzymes and therefore acute stent thrombosis is highly unlikely. His myocardial perfusion study shows lateral ischemia and inferior infarction with also fixed anteroapical defect. There is no reversible defect in the territory of recently stented artery territories patient will need to follow-up with cardiology outpatient basis and take medications as instructed to him. Patient was loaded with Plavix Hypertension: He was treated with Lopressor Hyperlipidemia: He was treated with Lipitor Diabetes: Continue insulin sliding scale and outpatient medications; however A1c 4.7 Seizure disorder: He was treated with Keppra Paroxysmal A. fib: He was treated with Lopressor and Xarelto Patient has been advised to follow outpatient including in [facility] with Cardiology Pt Condition on Discharge: Good Discharge Disposition: Discharge Home Discharge Time: <= 30 minutes Discharge Instructions DIET: Follow Instructions for: Heart Healthy Diet, Diabetic Diet Activities you can perform: Regular-No Restrictions Follow up Referrals: Cardiology - 1 Week PCP Follow-up - 2-3 Days Continued Medications: Albuterol 18 GM Inh (Ventolin Hfa 18 GM Inh) 90 Mcg/Act Aer 2 PUFF INH Q4H PRN for SHORTNESS OF BREATH, #1 INHALER 0 Refills Gabapentin (Gabapentin) 100 Mg Cap 100 MG PO TID, #90 CAP 0 Refills Glipizide (Glipizide) 5 Mg Tab 5 MG PO DAILY for Blood Sugar Management, #30 TAB 0 Refills (This prescription has been renewed) Take 30 minutes before a meal Levetiracetam (Levetiracetam) 1,000 Mg Tab 1000 MG PO BID for Control Seizures, #60 TAB 0 Refills Lisinopril (Lisinopril) 5 Mg Tab 2.5 MG PO DAILY for Blood Pressure Management, #30 TAB Metoprolol Succinate ER 24 HR (Metoprolol Succinate ER 24 HR) 50 Mg Tab 50 MG PO DAILY, #30 TAB 0 Refills Morphine IR (Morphine IR) 15 Mg Tab 15 MG PO Q4H PRN for PAIN, #30 TAB 0 Refills Rivaroxaban (Xarelto) 20 Mg Tab 20 MG PO DAILY for Blood Clot Prevention, #30 TAB 0 Refills Simvastatin (Simvastatin) 10 Mg Tab 10 MG PO DAILY for Cholesterol Management, #30 TAB 0 Refills Sebastian Loza MD July 26, 2017 08:36
[2017-07-26] MEDS ORDERED: RIVAROXABAN 20 MG TAB PO SCH (09:00)
[2017-07-26] MEDS ORDERED: ASPIRIN 81 MG CHEW TAB CHEW SCH (09:00)
[2017-07-26] MEDS: MULTIVITAMINS/MINERALS THERAPEUTIC TAB PO SCH (09:27)
[2017-07-26] MEDS: GABAPENTIN 100 MG CAP PO SCH (09:27)
[2017-07-26] MEDS: THIAMINE HCL 100 MG TAB PO SCH (09:27)
[2017-07-26] MEDS: RANOLAZINE 500 MG EXTENDED RELEASE TAB PO SCH (09:27)
[2017-07-26] MEDS: FOLIC ACID 1 MG TAB PO SCH (09:27)
[2017-07-26] MEDS: levETIRAcetam 500 MG TAB PO SCH (09:27)
[2017-07-26] MEDS: METOPROLOL TARTRATE 25 MG TAB PO SCH (09:28)
[2017-07-26] MEDS: SODIUM CHLORIDE 0.9% FLUSH 10 ML FLUSH IV FLUSH SCH (09:28)
--- NOTE | 2017-07-26 13:57 | TR ---
Date Performed: 07/25/2017 Time Performed: 13:08:38 DOCTOR: Anup Kessler DRUG LIST: CLINICAL HISTORY: REASON FOR TEST: CHEST PAIN REASON FOR ENDING: OBSERVATION: CONCLUSION: COMMENTS: Lexiscan stress test was performed under standard four minute protocol. Radionuclide was injected one minute prior to ending the test.Non specific t wave inversion was present throughout the study. Nuclear imaging and interpretation are pending.
[2017-07-26 16:30] LABS: HEMOGLOBIN A1C 6.9 % (4.3-6.0)
== END 2017-07-26 12:19 | disposition home or self-care (01) ==
LOC: NEPE 20:13 → NEDA 22:06 → NEPGCP 22:51
PROVIDERS: ADMIT Hospitalist; ATTEND Hospitalist
DX: R07.89 Other chest pain (principal); R06.02 Shortness of breath; R42 Dizziness and giddiness; I25.10 Atherosclerotic heart disease of native coronary artery without angina pectoris; I10 Essential (primary) hypertension; J44.9 Chronic obstructive pulmonary disease, unspecified; D69.6 Thrombocytopenia, unspecified; I25.2 Old myocardial infarction; E78.5 Hyperlipidemia, unspecified; E11.9 Type 2 diabetes mellitus without complications; R94.31 Abnormal electrocardiogram [ECG] [EKG]; G40.909 Epilepsy, unspecified, not intractable, without status epilepticus; I48.0 Paroxysmal atrial fibrillation; Z87.891 Personal history of nicotine dependence; Z79.899 Other long term (current) drug therapy; Z95.5 Presence of coronary angioplasty implant and graft; Z82.49 Family history of ischemic heart disease and other diseases of the circulatory system
CPT/HCPCS: 71045; 78452; 80048; 80061; 80076; 82550; 82552; 82948; 83036; 83735; 84484; 85025; 85610; 85730; 93005; 93017; 94664; 96374; 96375; 96376; 99285; A9502; G0378; J2270; J2405; J2785; J7040

== ENCOUNTER 2017-08-26 00:25 | Inpatient (IN) | payer MEDICARE, MEDICAID ==
[~2017-08-26] VITALS: Ht 182.9 cm; Wt 87.1 kg
[2017-08-26] VITALS (9 sets, daily range): BP systolic 95–131; BP diastolic 52–89; PULSE 61–95; RESP 16–22; TEMP 97.9–98.6; O2SAT 93–100
[~2017-08-26 00:25] MED LIST changes: -ECASA81 PO
--- NOTE | 2017-08-26 00:44 | PD ---
HPI . chest pain Chief Complaint: Chest Pain Time Seen by Provider: 00:33 Travel History International Travel<30 days: No Contact w/Intl Traveler<30days: No Traveled to known affect area: No History of Present Illness HPI This is a 57-year-old male with history of CAD had bypass, was admitted to this facility in June and transferred to [facility] with the plan of a redo bypass the presents to ED yesterday with feeling of chest discomfort. Patient states he did not have a bypass at [facility]. States that he had one, 2, or 3 stents and was discharged 8 or 9 days later. He has not followed up with cardiology or PCP since. States he was taken off Xarelto in place on a different medication but has not filled the prescription stating that he lost his wallet. States he has been taking the medication that he had prior to being hospitalized but cannot recall those of the medicines that he was discharged on or not. States the discomfort is worse now than it ever has been. States that the discomfort worsened after getting stents. States the discomfort is constantly there. If he is doing absolutely nothing the discomfort will reduce a little bit but still is never gone away. Pt has had multiple visits for the same complaint and asks for pain medication each time he arrives with chest pain , he refuses nitro paste , reports severe GI reaction, Was given ASA in EMS and now in ER appears mild intoxicated and holding his left chest ..smells of etoh as well , He apparently fell tonight and has an knee bandaged wrapped with cling from EMS superficial abrasion no lac PFSH Past Medical History Hx Anticoagulant Therapy: Yes Arthritis: No Asthma: No Atrial Fibrillation: Yes Autoimmune Disease: No Blood Disorders: No Anxiety: No Depression: No Heart Rhythm Problems: Yes (a- fib) Cancer: No Cardiac Catheterization: Yes Cardiovascular Problems: Yes High Cholesterol: Yes Chemotherapy: No Chest Pain: Yes Congestive Heart Failure: Yes COPD: Yes Cerebrovascular Accident: No Diabetes: No Diminished Hearing: No Endocrine: No Gastrointestinal Disorders: Yes GERD: No Glaucoma: No Genitourinary: No Headaches: Yes Hepatitis: No Hiatal Hernia: No Hypertension: Yes Immune Disorder: No Implanted Vascular Access Dvce: Yes Kidney Stones: No Musculoskeletal: No Neurologic: Yes Psychiatric: No Reproductive: No Respiratory: Yes (COPD) Migraines: No Myocardial Infarction: Yes Radiation Therapy: No Renal Failure: No Seizures: Yes (EPILEPSY 2001) Sickle Cell Disease: No Sleep Apnea: No Thyroid Disease: No Ulcer: No PNEUMOCCOCAL Vaccine (Year): 2 Past Surgical History Abdominal Aneurysm Repair: Yes (1995) Abdominal Surgery: No AICD: Yes (01/20 [facility] [id number], [id number], removed) Appendectomy: No Arteriovenous Shunt: No Body Medical Devices: PACER Cardiac Surgery: Yes (CABG X 3 VESSEL IN , pacer, ablation) Cholecystectomy: No Coronary Artery Bypass Graft: Yes Coronary Stent: Yes Ear Surgery: No Endocrine Surgery: No Eye Surgery: No Genitourinary Surgery: No Gynecologic Surgery: No Insulin Pump: No Joint Replacement: No Oral Surgery: No Pacemaker: Yes (AICD VIA DR GREGORIO) Thoracic Surgery: No Social History Alcohol Use: Yes (12-pack daily) Tobacco Use: Yes (1 PPD) Substance Use: No Allergies-Medications (Allergen,Severity, Reaction): Coded Allergies: cefazolin (Verified Allergy, Severe, Hives, 08/26/17) morphine (Verified Adverse Reaction, Intermediate, Nausea/Vomiting, ) Reported Meds & Prescriptions Reported Meds & Active Scripts Active Glipizide 5 Mg Tab 5 Mg PO DAILY Take 30 minutes before a meal Lisinopril 5 Mg Tab 2.5 Mg PO DAILY Morphine IR (Morphine Sulfate) 15 Mg Tab 15 Mg PO Q4H PRN Ventolin Hfa 18 GM Inh (Albuterol Sulfate) 90 Mcg/Act Aer 2 Puff INH Q4H PRN Xarelto (Rivaroxaban) 20 Mg Tab 20 Mg PO DAILY Blood Glucose System Donny (Blood Glucose Monitoring Suppl) 1 Kit Kit Kit Reported Metoprolol Succinate ER 24 HR (Metoprolol Succinate) 50 Mg Tab 50 Mg PO DAILY Gabapentin 100 Mg Cap 100 Mg PO TID Levetiracetam 1,000 Mg Tab 1,000 Mg PO BID Simvastatin 10 Mg Tab 10 Mg PO DAILY Review of Systems Except as stated in HPI: all other systems reviewed are Neg Physical Exam Narrative GENERAL: appears etoh intox holding chest not diaphoretic no active vomit refusing nitro SKIN: Warm and dry. HEAD: Atraumatic. Normocephalic. EYES: Pupils equal and round. No scleral icterus. No injection or drainage. ENT: No nasal bleeding or discharge. Mucous membranes pink and moist. NECK: Trachea midline. No JVD. CARDIOVASCULAR: Regular rate and rhythm. RESPIRATORY: No accessory muscle use. Clear to auscultation. Breath sounds equal bilaterally. GASTROINTESTINAL: Abdomen soft, non-tender, nondistended. Hepatic and splenic margins not palpable. MUSCULOSKELETAL: Extremities without clubbing, cyanosis, or edema. No obvious deformities. NEUROLOGICAL: Awake and alert. No obvious cranial nerve deficits. Motor grossly within normal limits. Five out of 5 muscle strength in the arms and legs. Normal speech. PSYCHIATRIC: Appropriate mood and affect; insight and judgment normal. Data Data Orders Orders Complete Blood Count With Diff (08/26/17 01:42) Comprehensive Metabolic Panel (08/26/17 01:42) Creatine Kinase (Cpk) (08/26/17 01:42) Troponin I (08/26/17 01:42) Lipase (08/26/17 01:42) Drug Screen, Random Urine (08/26/17 01:42) Alcohol (Ethanol) (08/26/17 01:42) Chest, Single Ap (08/26/17 ) CKMB (08/26/17 02:15) CKMB% (08/26/17 02:15) Troponin I (08/26/17 04:29) Comprehensive Metabolic Panel (08/26/17 04:29) Admit Order (Ed Use Only) (08/26/17 05:57) Place In Observation (08/26/17 05:58) Activity Bed Rest With Brp (08/26/17 05:58) Vital Signs (Adult) Q4H (08/26/17 05:58) Cardiac Rhythm .As Directed (08/26/17 05:58) Notify Dr: Other .PRN (08/26/17 05:58) Notify DrShreya Parameters (08/26/17 05:58) Resp Oxygen Nasal Cannula (08/26/17 ) Ckmb (Isoenzyme) Profile (08/26/17 05:58) Ckmb (Isoenzyme) Profile (08/26/17 08:58) Troponin I (08/26/17 05:58) Troponin I (08/26/17 08:58) Electrocardiogram (08/26/17 05:58) Electrocardiogram (08/26/17 08:58) ^ Obtain (08/26/17 05:58) Sodium Chloride 0.9% Flush (Ns Flush) (08/26/17 06:00) Sodium Chloride 0.9% Flush (Ns Flush) (08/26/17 09:00) Caddy / Telemetry FEI.Q8H (08/26/17 05:58) Labs Laboratory Tests Test 08/26/17 02:15 08/26/17 02:30 08/26/17 04:55 Blood Urea Nitrogen 11 MG/DL 11 MG/DL Creatinine 1.26 MG/DL 1.09 MG/DL Random Glucose 90 MG/DL 87 MG/DL Total Protein 7.4 GM/DL 6.8 GM/DL Albumin 3.1 GM/DL 2.9 GM/DL Calcium Level 7.7 MG/DL 7.8 MG/DL Alkaline Phosphatase 340 U/L 323 U/L Aspartate Amino Transf (AST/SGOT) 204 U/L 166 U/L Alanine Aminotransferase (ALT/SGPT) 71 U/L 63 U/L Total Bilirubin 0.6 MG/DL 0.6 MG/DL Sodium Level 139 MEQ/L 141 MEQ/L Potassium Level 3.7 MEQ/L 3.4 MEQ/L Chloride Level 104 MEQ/L 105 MEQ/L Carbon Dioxide Level 21.1 MEQ/L 22.4 MEQ/L Anion Gap 14 MEQ/L 14 MEQ/L Estimat Glomerular Filtration Rate 59 ML/MIN 70 ML/MIN Total Creatine Kinase 438 U/L Creatine Kinase MB 5.9 NG/ML Creatine Kinase MB % 1.3 % Troponin I 0.02 NG/ML 0.04 NG/ML Lipase 170 U/L Ethyl Alcohol Level 302 MG/DL Urine Opiates Screen NEG Urine Barbiturates Screen NEG Urine Amphetamines Screen NEG Urine Benzodiazepines Screen NEG Urine Cocaine Screen NEG Urine Cannabinoids Screen NEG White Blood Count 4.7 TH/MM3 Red Blood Count 3.94 MIL/MM3 Hemoglobin 11.6 GM/DL Hematocrit 35.8 % Mean Corpuscular Volume 90.9 FL Mean Corpuscular Hemoglobin 29.5 PG Mean Corpuscular Hemoglobin Concent 32.4 % Red Cell Distribution Width 21.1 % Platelet Count 45 TH/MM3 Mean Platelet Volume 8.5 FL Neutrophils (%) (Auto) 45.3 % Lymphocytes (%) (Auto) 48.6 % Monocytes (%) (Auto) 4.9 % Eosinophils (%) (Auto) 0.4 % Basophils (%) (Auto) 0.8 % Neutrophils # (Auto) 2.1 TH/MM3 Lymphocytes # (Auto) 2.3 TH/MM3 Monocytes # (Auto) 0.2 TH/MM3 Eosinophils # (Auto) 0.0 TH/MM3 Basophils # (Auto) 0.0 TH/MM3 CBC Comment AUTO DIFF Differential Comment AUTO DIFF CONFIRMED Platelet Estimate LOW Platelet Morphology Comment NORMAL Ovalocytes 1+ MDM Medical Decision Making Medical Screen Exam Complete: Yes Emergency Medical Condition: Yes Medical Record Reviewed: Yes Differential Diagnosis ACS vs ischeimic pain vs chronic sternal pain vs ; vs malingering vs pericarditis vs other Narrative Course trop negative and admitted to CP center for serial CP troponin rule out then possible cehemical stress and cardiology consult Diagnosis Primary Impression: Chest pain Qualified Codes: R07.9 - Chest pain, unspecified Admitting Information Admitting Physician Requests: Observation Scripts Atorvastatin (Atorvastatin) 40 Mg Tab 40 MG PO HS for Cholesterol Management, #30 TAB 0 Refills Prov: Kenendy Disla MD 08/30/17 Metoprolol Succinate ER 24 HR (Metoprolol Succinate ER 24 HR) 25 Mg Tab 25 MG PO DAILY for afib, #30 TAB Prov: Kennedy Disla MD 08/30/17 Clopidogrel (Plavix) 75 Mg Tab 75 MG PO DAILY for stent maintenance, #30 TAB Prov: Kennedy Disla MD 08/30/17 Hakan Casanova MD Aug 26, 2017 00:44
--- NOTE | 2017-08-26 02:30 | RADRPT ---
EXAM DATE: 08/26/2017 2:24 AM EDT AGE/SEX: 57 years / Male INDICATIONS: Chest pain, short of breath. CLINICAL DATA: This is the patient's initial encounter. Patient reports that signs and symptoms have been present for 1 day and indicates a pain score of 5/10. MEDICAL/SURGICAL HISTORY: Chronic obstructive pulmonary disease. CABG. Pacemaker. COMPARISON: [facility] [place] S[place], 07/24/2017. . FINDINGS: 2 AP views of the chest. Cardiac pacemaker remains in place. Median sternotomy wires again noted. Mod erate cardiac silhouette enlargement unchanged. Lungs are clear. No evidence of pleural effusion or p neumothorax. Skin fold mimicking a pneumothorax on the left. CONCLUSION: Chronic cardiac silhouette enlargement. Lungs are clear. Electronically signed by: Cristofer Gomez MD 08/26/2017 2:29 AM EDT
[2017-08-26 03:07] LABS: ALBUMIN 3.1 GM/DL (3.4-5.0); ALKALINE PHOSPHATASE 340 U/L (45-117); ALT (GPT) 71 U/L (12-78); AST (GOT) 204 U/L (15-37); BICARBONATE 21.1 MEQ/L (21.0-32.0); BLOOD UREA NITROGEN 11 MG/DL (7-18); CALCIUM 7.7 MG/DL (8.5-10.1); CHLORIDE 104 MEQ/L (98-107); CREATININE 1.26 MG/DL (0.60-1.30); GLOMERULAR FILTRATION RATE 59 ML/MIN (>89); GLUCOSE,RANDOM 90 MG/DL (74-106); SODIUM (NA) 139 MEQ/L (136-145); TOTAL BILIRUBIN ADULT 0.6 MG/DL (0.2-1.0); TOTAL PROTEIN 7.4 GM/DL (6.4-8.2); TROPONIN I 0.02 NG/ML (0.02-0.05)
[2017-08-26 05:06] LABS: AUTOMATED NEUTROPHIL # 2.1 TH/MM3 (1.8-7.7); BASOPHIL % 0.8 % (0.0-2.0); EOSINOPHIL % 0.4 % (0.0-4.0); HEMATOCRIT 35.8 % (39.0-51.0); HEMOGLOBIN 11.6 GM/DL (13.0-17.0); LYMPH % 48.6 % (9.0-44.0); LYMPHOCYTE # 2.3 TH/MM3 (1.0-4.8); MEAN CELL VOLUME 90.9 FL (80.0-100.0); MEAN CORPUSCULAR HEMOGLOBIN 29.5 PG (27.0-34.0); MEAN CORPUSCULAR HGB CONC 32.4 % (32.0-36.0); MEAN PLATELET VOLUME 8.5 FL (7.0-11.0); MONO % 4.9 % (0.0-8.0); MONOCYTE # 0.2 TH/MM3 (0-0.9); NEUT % 45.3 % (16.0-70.0); PLATELET COUNT 45 TH/MM3 (150-450); RED BLOOD COUNT 3.94 MIL/MM3 (4.50-5.90); RED CELL DISTRIBUTION WIDTH 21.1 % (11.6-17.2); WHITE BLOOD COUNT 4.7 TH/MM3 (4.0-11.0)
[2017-08-26 05:35] LABS: ALBUMIN 2.9 GM/DL (3.4-5.0); AST (GOT) 166 U/L (15-37); BICARBONATE 22.4 MEQ/L (21.0-32.0); BLOOD UREA NITROGEN 11 MG/DL (7-18); CALCIUM 7.8 MG/DL (8.5-10.1); CHLORIDE 105 MEQ/L (98-107); CREATININE 1.09 MG/DL (0.60-1.30); GLOMERULAR FILTRATION RATE 70 ML/MIN (>89); GLUCOSE,RANDOM 87 MG/DL (74-106); SODIUM (NA) 141 MEQ/L (136-145)
[2017-08-26 05:36] LABS: ALT (GPT) 63 U/L (12-78)
[2017-08-26 05:40] LABS: ALKALINE PHOSPHATASE 323 U/L (45-117); TOTAL BILIRUBIN ADULT 0.6 MG/DL (0.2-1.0); TOTAL PROTEIN 6.8 GM/DL (6.4-8.2); TROPONIN I 0.04 NG/ML (0.02-0.05)
[2017-08-26] MEDS ORDERED: SODIUM CHLORIDE 0.9% FLUSH 10 ML FLUSH IV FLUSH PRN (06:00)
[2017-08-26 06:15] LABS: OVALOCYTES 1+ (NORMAL)
[2017-08-26] MEDS ORDERED: ONDANSETRON ODT 4 MG TAB PO PRN (07:45)
[2017-08-26] MEDS ORDERED: PILL SPLITTER OTHER PRN (08:15)
[2017-08-26] MEDS: LISINOPRIL 5 MG TAB PO SCH (08:33)
[2017-08-26] MEDS: SODIUM CHLORIDE 0.9% FLUSH 10 ML FLUSH IV FLUSH SCH ×2 (08:33→21:00)
[2017-08-26] MEDS: RIVAROXABAN 20 MG TAB PO SCH (08:33)
[2017-08-26] MEDS: PRAVASTATIN SOD 20 MG TAB PO SCH (08:34)
[2017-08-26] MEDS: levETIRAcetam 500 MG TAB PO SCH ×2 (08:34→21:43)
[2017-08-26] MEDS: GABAPENTIN 100 MG CAP PO SCH ×3 (08:34→18:47)
[2017-08-26] MEDS: METOPROLOL SUCCINATE 50 MG EXTENDED RELEASE TAB PO SCH (08:37)
[2017-08-26 08:46] LABS: TROPONIN I 0.04 NG/ML (0.02-0.05)
[2017-08-26] MEDS ORDERED: LORazepam 2 MG/ML VIAL IV PUSH PRN ×4 (10:00)
[2017-08-26] MEDS ORDERED: LORazepam 2 MG TAB PO PRN (10:00)
[2017-08-26] MEDS ORDERED: FLUMAZENIL 0.5 MG/5 ML VIAL IV PUSH PRN (10:00)
[2017-08-26 10:39] LABS: TROPONIN I 0.04 NG/ML (0.02-0.05)
--- NOTE | 2017-08-26 12:26 | EKG ---
Date Performed: 08/25/2017 Time Performed: 23:33:43 PTAGE: 57 years EKG: Sinus rhythm POSSIBLE LEFT ATRIAL ENLARGEMENT MODERATE INTRAVENTRICULAR CONDUCTION DELAY NONSPECIFIC T-WAVE ABNOR MALITY BORDERLINE ECG Since PREVIOUS TRACING , no significant change noted PREVIOUS TRACIN07/25/2017 02.51 DOCTOR: Iona Zambrano Interpretating Date/Time 08/26/2017 12:26:05
--- NOTE | 2017-08-26 12:29 | EKG ---
Date Performed: 08/26/2017 Time Performed: 05:11:14 PTAGE: 57 years EKG: Sinus rhythm WITH OCCASIONAL VENTRICULAR PREMATURE COMPLEXES MODERATE INTRAVENTRICULAR CONDUCTION DELAY MODERATE T-WAVE ABNORMALITY, CONSIDER LATERAL ISCHEMIA MODERATE T-WAVE ABNORMALITY, CONSIDER INFERIOR ISCHEMIA ABNORMAL ECG Since PREVIOUS TRACING , no significant change noted PREVIOUS TRACIN08/25/2017 23.33 DOCTOR: Iona Zambrano Interpretating Date/Time 08/26/2017 12:27:16
--- NOTE | 2017-08-26 15:42 | EKG ---
Date Performed: 08/26/2017 Time Performed: 08:17:10 PTAGE: 57 years EKG: Sinus rhythm NONSPECIFIC INTRAVENTRICULAR CONDUCTION DELAY T-WAVE ABNORMALITY, CONSIDER LATERAL ISCHEMIA ABNORMA L ECG PREVIOUS TRACING : 08/26/2017 05.11 Compared to previous tracing, inferior T wave inversion is less evident. DOCTOR: Geovanny Patel Interpretating Date/Time 08/26/2017 15:41:45
--- NOTE | 2017-08-26 16:33 | HHI.HP ---
[facility] Patricia James MD Admission Diagnosis CP Diagnoses: Travel History International Travel<30 Days: No Contact w/Intl Traveler <30 Da: No Traveled to Known Affected Are: No History of Present Illness 57-year-old male with a history of chronic alcoholism, CAD, with CABG and stenting in the past, follows with Dr. Granda. patient presents with a 1 day history of constant, sharp left-sided chest pain radiating to left arm, left leg , back. Patient reports falling, with abrasion to left knee, bruises on his back. Patient reports chronic cough without changes. He does report some nausea but no vomiting. Patient denies being inebriated yesterday, however alcohol level in the 300s. Review of Systems Except as stated in HPI: all other systems reviewed are Neg Past Family Social History Past Medical History CAD status post CABG, with stenting recently at [facility] in [place] Hypertension Hyperlipidemia Diabetes Paroxysmal atrial fibrillation Seizure disorder Chronic alcoholism Past Surgical History CABG Ablation Pacemaker placement Reported Medications Reported Meds & Active Scripts Active Glipizide 5 Mg Tab 5 Mg PO DAILY Take 30 minutes before a meal Lisinopril 5 Mg Tab 2.5 Mg PO DAILY Morphine IR (Morphine Sulfate) 15 Mg Tab 15 Mg PO Q4H PRN Ventolin Hfa 18 GM Inh (Albuterol Sulfate) 90 Mcg/Act Aer 2 Puff INH Q4H PRN Xarelto (Rivaroxaban) 20 Mg Tab 20 Mg PO DAILY Blood Glucose System Donny (Blood Glucose Monitoring Suppl) 1 Kit Kit Kit Reported Metoprolol Succinate ER 24 HR (Metoprolol Succinate) 50 Mg Tab 50 Mg PO DAILY Gabapentin 100 Mg Cap 100 Mg PO TID Levetiracetam 1,000 Mg Tab 1,000 Mg PO BID Simvastatin 10 Mg Tab 10 Mg PO DAILY Allergies: Coded Allergies: cefazolin (Verified Allergy, Severe, Hives, 08/26/17) morphine (Verified Adverse Reaction, Intermediate, Nausea/Vomiting, ) Family History Mother at age 67 secondary to [place]. Father secondary to unknown cancer at age 56 Social History Patient smoked one half pack of cigarettes for the past 20 years. Patient drinks about 9 beers per day. He denies any alcohol withdrawal, however does has history of seizures. He denies any illicit drugs. Physical Exam Vital Signs Vital Signs Date Time Temp Pulse Resp B/P (MAP) Pulse Ox O2 Delivery O2 Flow Rate FiO2 08/26/17 13:06 98.1 68 19 95/52 (66) 95 08/26/17 08:55 98.0 86 16 130/68 (88) 100 08/26/17 06:39 08/26/17 05:00 97 21 08/26/17 04:59 98.2 90 16 100/60 (73) 97 Room Air 08/26/17 02:33 98.4 85 22 119/76 (90) 97 Room Air 08/26/17 00:33 95 18 117/74 (88) 98 Physical Exam GENERAL: This is a well-nourished, well-developed patient, in no apparent distress. Alert and oriented 3. SKIN: No rashes, ecchymoses or lesions. Cool and dry. HEAD: Atraumatic. Normocephalic. No temporal or scalp tenderness. EYES: Pupils equal round and reactive. Extraocular motions intact. No scleral icterus. No injection or drainage. ENT: Nose without bleeding, purulent drainage or septal hematoma. Throat without erythema, tonsillar hypertrophy or exudate. Uvula midline. Airway patent. NECK: Trachea midline. No JVD or lymphadenopathy. Supple, nontender, no meningeal signs. CARDIOVASCULAR: Regular rate and rhythm without murmurs, gallops, or rubs. RESPIRATORY: Clear to auscultation. Breath sounds equal bilaterally. No wheezes , rales, or rhonchi. GASTROINTESTINAL: Abdomen soft, non-tender, nondistended. No hepato-splenomegaly , or palpable masses. No guarding. MUSCULOSKELETAL: Extremities without clubbing, cyanosis, or edema. No joint tenderness, effusion, or edema noted. No calf tenderness. Negative Homans sign bilaterally. Patient does have abrasion to the left knee which does not appear infected. Patient also with bruising to the right lower back, left upper back. No spinous process tenderness. Some ecchymosis, however no hematoma or broken skin. NEUROLOGICAL: Awake and alert. Cranial nerves II through XII intact. Motor and sensory grossly within normal limits. Five out of 5 muscle strength in all muscle groups. Normal speech. Laboratory Laboratory Tests Test 08/26/17 02:15 08/26/17 02:30 08/26/17 04:55 08/26/17 07:43 Blood Urea Nitrogen 11 11 Creatinine 1.26 1.09 Random Glucose 90 87 Total Protein 7.4 6.8 Albumin 3.1 2.9 Calcium Level 7.7 7.8 Alkaline Phosphatase 340 323 Aspartate Amino Transf (AST/SGOT) 204 166 Alanine Aminotransferase (ALT/SGPT) 71 63 Total Bilirubin 0.6 0.6 Sodium Level 139 141 Potassium Level 3.7 3.4 Chloride Level 104 105 Carbon Dioxide Level 21.1 22.4 Anion Gap 14 14 Estimat Glomerular Filtration Rate 59 70 Total Creatine Kinase 438 503 Creatine Kinase MB 5.9 5.4 Creatine Kinase MB % 1.3 1.1 Troponin I 0.02 0.04 0.04 Lipase 170 Ethyl Alcohol Level 302 Urine Opiates Screen NEG Urine Barbiturates Screen NEG Urine Amphetamines Screen NEG Urine Benzodiazepines Screen NEG Urine Cocaine Screen NEG Urine Cannabinoids Screen NEG White Blood Count 4.7 Red Blood Count 3.94 Hemoglobin 11.6 Hematocrit 35.8 Mean Corpuscular Volume 90.9 Mean Corpuscular Hemoglobin 29.5 Mean Corpuscular Hemoglobin Concent 32.4 Red Cell Distribution Width 21.1 Platelet Count 45 Mean Platelet Volume 8.5 Neutrophils (%) (Auto) 45.3 Lymphocytes (%) (Auto) 48.6 Monocytes (%) (Auto) 4.9 Eosinophils (%) (Auto) 0.4 Basophils (%) (Auto) 0.8 Neutrophils # (Auto) 2.1 Lymphocytes # (Auto) 2.3 Monocytes # (Auto) 0.2 Eosinophils # (Auto) 0.0 Basophils # (Auto) 0.0 CBC Comment AUTO DIFF Differential Comment AUTO DIFF CONFIRMED Platelet Estimate LOW Platelet Morphology Comment NORMAL Ovalocytes 1+ Test 08/26/17 09:27 Total Creatine Kinase 482 Troponin I 0.04 Result Diagram: 08/26/17 0455 08/26/17 0455 Imaging Last Impressions Chest X-Ray 08/26/17 0000 Signed Impressions: CONCLUSION: Chronic cardiac silhouette enlargement. Lungs are clear. Caprini VTE Risk Assessment Caprini VTE Risk Assessment: No/Low Risk (score <= 1) Caprini Risk Assessment Model Point Value = 1 Point Value = 2 Point Value = 3 Point Value = 5 Age 41-60 Minor surgery BMI > 25 kg/m2 Swollen legs Varicose veins or History of unexplained or recurrent spontaneous Oral contraceptives or hormone replacement Sepsis (< 1 month) Serious lung disease, including pneumonia (< 1 month) Abnormal pulmonary function Acute myocardial infarction Congestive heart failure (< 1 month) History of inflammatory bowel disease Medical patient at bed rest Age 61-74 Arthroscopic surgery Major open surgery (> 45 min) Laparoscopic surgery (> 45 min) Malignancy Confined to bed (> 72 hours) Immobilizing plaster cast Central venous access Age >= 75 History of VTE Family history of VTE Factor V Leiden Prothrombin [id number] Lupus anticoagulant Anticardiolipin antibodies Elevated serum homocysteine Heparin-induced thrombocytopenia Other congenital or acquired thrombophilia Stroke (< 1 month) Elective arthroplasty Hip, pelvis, or leg fracture Acute spinal cord injury (< 1 month) Prophylaxis Regimen Total Risk Factor Score Risk Level Prophylaxis Regimen 0-1 Low Early ambulation 2 Moderate Order ONE of the following: *Sequential Compression Device (SCD) *Heparin 5000 units SQ BID 3-4 Higher Order ONE of the following medications: *Heparin 5000 units SQ TID *Enoxaparin/Lovenox 40 mg SQ daily (WT < 150 kg, CrCl > 30 mL/min) *Enoxaparin/Lovenox 30 mg SQ daily (WT < 150 kg, CrCl > 10-29 mL/min) *Enoxaparin/Lovenox 30 mg SQ BID (WT < 150 kg, CrCl > 30 mL/min) AND/OR *Sequential Compression Device (SCD) 5 or more Highest Order ONE of the following medications: *Heparin 5000 units SQ TID (Preferred with Epidurals) *Enoxaparin/Lovenox 40 mg SQ daily (WT < 150 kg, CrCl > 30 mL/min) *Enoxaparin/Lovenox 30 mg SQ daily (WT < 150 kg, CrCl > 10-29 mL/min) *Enoxaparin/Lovenox 30 mg SQ BID (WT < 150 kg, CrCl > 30 mL/min) AND *Sequential Compression Device (SCD) Assessment and Plan Assessment and Plan //Chest pain //Coronary artery disease -Suspect noncompliant with medications likely secondary to chronic alcohol abuse. -With history of CABG Recent stenting, noncompliant with meds. Trend EKGs and troponins. Dr. Zambrano has recommended consult cardiology. //Hypertension = Continue blood pressure medications and adjust as necessary. //Paroxysmal atrial fibrillation. -Likely exacerbated by chronic alcohol use Continue beta-bahman and anticoagulation. //Hyperlipidemia = Continue home statin. //Diabetes mellitus. Diabetic diet, insulin sliding scale. //Chronic alcohol abuse //Risk for alcohol withdrawal = CIWA protocol. Cessation counseling provided. //History of seizure disorder. I suspect this is likely secondary to alcohol withdrawal, however patient denies. Continue Keppra. //Thrombocytopenia. Platelets 45. Chronic. No signs of bleeding currently. Will monitor. //Chronic pain disorder. Patient has not picked up pain meds in several months. Due to substance use disorder, will try to avoid narcotics if possible. Discussed Condition With Patient, nurse. Diaz Arzola MD Aug 26, 2017 16:33
[2017-08-26] MEDS ORDERED: GLUCAGON 1 MG/ML VIAL OTHER PRN (16:45)
[2017-08-26] MEDS ORDERED: DEXTROSE 50% IN WATER 50 ML VIAL(D50) IV PUSH PRN (16:45)
[2017-08-26] MEDS: INSULIN ASPART SUPPLEMENTAL SCALE SQ SCH ×2 (18:46→21:00)
[2017-08-26] MEDS: LORazepam 1 MG TAB PO PRN (21:43)
[2017-08-27] VITALS (10 sets, daily range): BP systolic 88–163; BP diastolic 54–88; PULSE 72–82; RESP 16–18; TEMP 97.5–99.2; O2SAT 91–98
[2017-08-27 07:43] LABS: AUTOMATED NEUTROPHIL # 1.4 TH/MM3 (1.8-7.7); BASOPHIL % 0.7 % (0.0-2.0); HEMATOCRIT 32.7 % (39.0-51.0); HEMOGLOBIN 10.6 GM/DL (13.0-17.0); LYMPH % 41.9 % (9.0-44.0); LYMPHOCYTE # 1.2 TH/MM3 (1.0-4.8); MEAN CELL VOLUME 91.4 FL (80.0-100.0); MEAN CORPUSCULAR HEMOGLOBIN 29.7 PG (27.0-34.0); MEAN CORPUSCULAR HGB CONC 32.5 % (32.0-36.0); MEAN PLATELET VOLUME 8.5 FL (7.0-11.0); MONO % 6.6 % (0.0-8.0); MONOCYTE # 0.2 TH/MM3 (0-0.9); NEUT % 49.8 % (16.0-70.0); PLATELET COUNT 25 TH/MM3 (150-450); RED BLOOD COUNT 3.58 MIL/MM3 (4.50-5.90); RED CELL DISTRIBUTION WIDTH 20.5 % (11.6-17.2); WHITE BLOOD COUNT 2.8 TH/MM3 (4.0-11.0)
[2017-08-27] MEDS: INSULIN ASPART SUPPLEMENTAL SCALE SQ SCH ×4 (08:00→21:00)
[2017-08-27] MEDS: LISINOPRIL 5 MG TAB PO SCH (08:54)
[2017-08-27] MEDS: levETIRAcetam 500 MG TAB PO SCH ×2 (08:54→21:03)
[2017-08-27] MEDS: GABAPENTIN 100 MG CAP PO SCH ×3 (08:54→16:51)
[2017-08-27] MEDS: METOPROLOL SUCCINATE 50 MG EXTENDED RELEASE TAB PO SCH (08:55)
[2017-08-27] MEDS: PRAVASTATIN SOD 20 MG TAB PO SCH (08:55)
[2017-08-27] MEDS: SODIUM CHLORIDE 0.9% FLUSH 10 ML FLUSH IV FLUSH SCH ×2 (08:57→19:04)
[2017-08-27] MEDS: RIVAROXABAN 20 MG TAB PO SCH (09:26)
[2017-08-27 09:33] LABS: CALCIUM 8.3 MG/DL (8.5-10.1); PHOSPHORUS 3.1 MG/DL (2.5-4.9)
[2017-08-27 09:41] LABS: ALBUMIN 2.9 GM/DL (3.4-5.0); BICARBONATE 23.6 MEQ/L (21.0-32.0); CREATININE 1.1 MG/DL (0.60-1.30); MAGNESIUM 2.1 MG/DL (1.5-2.5)
--- NOTE | 2017-08-27 14:16 | HHI.PR ---
Subjective Remarks Patient reports continued back pain. Reports continued left-sided chest pain radiating to left shoulder. Worse with deep breathing. Objective Vital Signs Date Time Temp Pulse Resp B/P (MAP) Pulse Ox O2 Delivery O2 Flow Rate FiO2 08/27/17 12:00 98.1 72 16 110/58 (75) 93 08/27/17 07:42 97.5 74 18 163/88 (113) 91 08/27/17 04:23 99.2 76 16 116/68 (84) 95 08/26/17 23:40 98.6 72 16 117/69 (85) 95 08/26/17 21:26 21 08/26/17 19:56 75 08/26/17 18:14 97.9 73 16 107/62 (77) 93 Result Diagram: 08/27/1772308/27/17723 Objective Remarks GENERAL: Patient sitting up in bed. Appears comfortable. SKIN: Warm and dry. HEAD: Normocephalic. EYES: No scleral icterus. No injection or drainage. NECK: Supple, trachea midline. No JVD. CARDIOVASCULAR: Regular rate and rhythm without murmurs, gallops, or rubs. RESPIRATORY: Breath sounds equal bilaterally. No accessory muscle use. Left- sided chest tenderness to palpation. No bruising. GASTROINTESTINAL: Abdomen soft, non-tender, nondistended. MUSCULOSKELETAL: No cyanosis, or edema. BACK: Nontender without obvious deformity. No CVA tenderness. A/P Assessment and Plan //Chest pain //Coronary artery disease -Suspect noncompliant with medications likely secondary to chronic alcohol abuse. -With history of CABG Recent stenting, noncompliant with meds. Trend EKGs and troponins. Dr. Zambrano has recommended consult cardiology. = Suspect this is a rib fracture on the left secondary to falling against a table given the patient was drunk. Will try a Lidoderm patch cardiology consult placed. I have called the hub again, apparently consult to Dr. Saleem was canceled yesterday. //Hypertension = Continue blood pressure medications and adjust as necessary. //Paroxysmal atrial fibrillation. -Likely exacerbated by chronic alcohol use Continue beta-bahman and anticoagulation. //Hyperlipidemia = Continue home statin. //Diabetes mellitus. Diabetic diet, insulin sliding scale. //Chronic alcohol abuse //Risk for alcohol withdrawal = CIWA protocol. Cessation counseling provided. //History of seizure disorder. I suspect this is likely secondary to alcohol withdrawal, however patient denies. Continue Keppra. //Thrombocytopenia. Platelets 45. Chronic. No signs of bleeding currently. Will monitor. = Platelets 25. No signs of bleeding. Continue to monitor. //Chronic pain disorder. Patient has not picked up pain meds in several months. Due to substance use disorder, will try to avoid narcotics if possible. Discharge Planning When cleared by cardiology Diaz Arzola MD Aug 27, 2017 14:16
[2017-08-27] MEDS ORDERED: POTASSIUM CHLORIDE 20 MEQ CONTROLLED RELEASE TAB PO ONE (15:45)
[2017-08-27] MEDS ORDERED: MORPHINE SULFATE 8 MG/ML INJ IV PUSH ONE (18:00)
[2017-08-27] MEDS: CLOPIDOGREL 75 MG TAB PO SCH (18:27)
--- NOTE | 2017-08-27 18:50 | MB ---
cc: Geovanny Patel MD DATE: 08/27/2017 REASON FOR CONSULTATION: Chest pain. HISTORY OF PRESENT ILLNESS: The patient is a 57-year-old white male, followed in our office by Dr. Jonathan Beaulieu, with a history of multiple medical problems including coronary artery disease, diabetes, COPD, seizure disorder, ischemic cardiomyopathy, paroxysmal atrial fibrillation, severe mitral regurgitation, who presented to the hospital with a 3-4 day history of constant left parasternal chest pain. He describes the chest discomfort as "sharp" and unrelenting, associated with increased shortness of breath from baseline as well as mild nausea. He has not been able to identify any factors which worsen the severity of the chest pain, which is not pleuritic. The patient was here in June with similar chest discomforts and underwent a nuclear stress test. At times, he feels mildly lightheaded for a few minutes. He denies any ICD shocks, syncope, near syncope, pedal edema, paroxysmal nocturnal dyspnea. or flu symptoms. The patient reports compliance with his medications. PAST MEDICAL HISTORY: 1. Coronary artery disease, status post 3-vessel bypass surgery in 1998 with subsequent occlusion of all of his bypass grafts. His cardiac catheterization on 03/23/2017 showed 85% ostial left main, 60-70% in-stent proximal LAD, mild left circumflex and second obtuse marginal disease, normal right coronary (left dominant system). Because he was felt to be high risk for coronary artery bypass grafting and mitral valve replacement (for severe mitral regurgitation), he was sent to [facility] where he reportedly underwent stenting of the left main and LAD. 2. Diabetes. 3. Chronic obstructive pulmonary disease. 4. Seizure disorder. 5. Ischemic cardiomyopathy with ejection fraction of 30% by cardiac catheterization on 03/23/2017. 6. Paroxysmal atrial fibrillation, status post 2 ablations, the last one about 2 years ago. 7. Hypertension. 8. Hyperlipidemia. 9. AICD implant, initially a dual chamber device in 2007 with subsequent extraction of the device in 2014 due to infection. The patient was reluctant for a year to undergo AICD reimplantation, but finally underwent single chamber Biotronik AICD implant on 09/05/2015. 10. Severe mitral regurgitation demonstrated by cardiac catheterization on 03/23/2017 CARDIAC MEDICATIONS AT HOME: 1. Simvastatin 10 mg at bedtime. 2. Metoprolol succinate 50 mg daily. 3. Xarelto 20 mg daily. 4. Lisinopril 2.5 mg daily. ALLERGIES: 1. ASPIRIN (SEVERE GI UPSET). 2. NITROGLYCERINE (NAUSEA, VOMITING). 3. CEFAZOLIN. FAMILY HISTORY: Noncontributory. SOCIAL HISTORY: The patient smokes a little less than a pack of cigarettes per day. He also drinks about an 8-12 pack of beer per day. REVIEW OF SYSTEMS: As in the history of present illness, otherwise negative or noncontributory. He also denies abdominal pain, melena, dyspepsia, bright red blood per rectum, and headache. PHYSICAL EXAMINATION: VITAL SIGNS: His blood pressure 88/54 with a pulse of 79, respirations 18. GENERAL: He is a well-developed, well-nourished white male, in no acute distress. NECK: Jugular venous pressure is normal. Carotid pulses are 2+ bilaterally and without bruits. CHEST: Reveals diminished breath sounds at the bases. CARDIAC: He has a regular rhythm and rate with a grade II/ holosystolic murmur heard at the lower left sternal border and apex. No definite gallop is audible. ABDOMEN: He has a soft, nontender abdomen. Bowel sounds are present. There is no definite hepatosplenomegaly. EXTREMITIES: Reveals no clubbing, cyanosis or edema. Peripheral pulses are normal throughout. DIAGNOSTIC STUDIES: EKG shows sinus rhythm, nonspecific intraventricular conduction delay, lateral T-wave abnormalities, consider ischemia. LABORATORY DATA: Includes potassium 3.4, BUN 10, creatinine 1.10. CK 503 with 1.1 percent MB fraction. Troponin 0.04. WBC 2.8, hemoglobin 10.6, platelets 25. IMAGING STUDIES: Chest x-ray shows no acute disease. IMPRESSION: Overall atypical chest pains in this 57-year-old white male with extensive history of coronary artery disease status post bypass surgery in 1998, reportedly status post stent of the left main and left anterior descending about 2 months ago at [facility] after he was felt to be too high risk candidate for open heart surgery for bypass surgery and mitral valve replacement, history of diabetes, chronic obstructive pulmonary disease, ischemic cardiomyopathy with ejection fraction of 30%, paroxysmal atrial fibrillation status post 2 ablations, and automated implantable cardioverter-defibrillator implant. Despite constant chest discomfort for the last 4 days, cardiac enzymes are basically negative for myocardial infarction. EKG is unchanged from his previous EKGs. On the other hand, he did have a nuclear stress test 07/25/2017 which reported mid to basal lateral and basal inferior ischemia with a fixed apical anterior defect. The inferior and lateral ischemia may correspond to restenosis of the left main stent, as the patient does have a left dominant system. Ideally, the patient needs a heart catheterization for reassessment of his left main and left anterior descending stents patency. The patient has apparently not been on an antiplatelet agent. At this time, there is no definite evidence for acute congestive heart failure. He remains in sinus rhythm. RECOMMENDATIONS: 1. Cardiac catheterization on Wednesday if his platelet count is at least 70,000. 2. Continue his usual home cardiac medications. 3. Given the abnormal nuclear stress test findings, despite the atypical nature of his chest pains, would administer analgesics. He reports adverse reactions to nitroglycerin. Start Plavix, hold Xarelto. Consider heparin drip. MD YULY Waterman/JAMES , 06:00 PM , 06:48 PM [place]
[2017-08-28] VITALS (7 sets, daily range): BP systolic 85–128; BP diastolic 52–68; PULSE 64–76; RESP 16–20; TEMP 97.7–98.6; O2SAT 90–100
[2017-08-28] MEDS: MORPHINE SULFATE 8 MG/ML INJ IV PUSH PRN ×3 (02:01→21:34)
[2017-08-28 07:12] LABS: AUTOMATED NEUTROPHIL # 2.6 TH/MM3 (1.8-7.7); BASOPHIL % 0.6 % (0.0-2.0); EOSINOPHIL % 1.1 % (0.0-4.0); HEMATOCRIT 35.6 % (39.0-51.0); HEMOGLOBIN 11.5 GM/DL (13.0-17.0); LYMPH % 27.3 % (9.0-44.0); LYMPHOCYTE # 1.1 TH/MM3 (1.0-4.8); MEAN CELL VOLUME 92.9 FL (80.0-100.0); MEAN CORPUSCULAR HGB CONC 32.3 % (32.0-36.0); MEAN PLATELET VOLUME 9.5 FL (7.0-11.0); MONO % 6.2 % (0.0-8.0); MONOCYTE # 0.3 TH/MM3 (0-0.9); NEUT % 64.8 % (16.0-70.0); PLATELET COUNT 23 TH/MM3 (150-450); RED BLOOD COUNT 3.83 MIL/MM3 (4.50-5.90); RED CELL DISTRIBUTION WIDTH 20.6 % (11.6-17.2); WHITE BLOOD COUNT 4.1 TH/MM3 (4.0-11.0)
[2017-08-28 07:23] LABS: ALBUMIN 3.2 GM/DL (3.4-5.0); BICARBONATE 22.2 MEQ/L (21.0-32.0); CALCIUM 8.4 MG/DL (8.5-10.1); CREATININE 1.13 MG/DL (0.60-1.30); PHOSPHORUS 3.1 MG/DL (2.5-4.9)
[2017-08-28] MEDS: INSULIN ASPART SUPPLEMENTAL SCALE SQ SCH ×4 (08:00→21:00)
[2017-08-28 08:15] LABS: OVALOCYTES 1+ (NORMAL)
[2017-08-28] MEDS ORDERED: ONDANSETRON ODT 4 MG TAB PO PRN (09:00)
--- NOTE | 2017-08-28 09:07 | PD.CARD.PN ---
Subjective Subjective Remarks Ongoing left parasternal CP, relief with morphine last night, now severe again. No SOB, nausea, dizziness, palpitations, pleurisy. Objective Medications Item Value Date Time Nitroglycerin 0.5 inch 08/28/17 0900 (Nitroglycerin Q6HR/TOPICAL 2% Oint) Clopidogrel 75 mg 08/27/17 1800 Bisulfate DAILY/PO 08/27/17 182 (Plavix) Lisinopril 2.5 mg 08/26/17 0900 (Prinivil) DAILY/PO 08/27/17 0854 Metoprolol 50 mg 08/26/17 0900 Succinate DAILY/PO 08/27/17 0855 (Toprol Xl) Pravastatin Sodium 20 mg 08/26/17 0900 (Pravachol) DAILY/PO 08/27/17 0855 Current Medications Medications (Trade) Dose Ordered Sig/Viky Route Start Time Stop Time Status Last Admin (NS Flush) 2 ml UNSCH PRN IV FLUSH 08/26/17 06:00 (NS Flush) 2 ml BID IV FLUSH 08/26/17 09:00 08/27/17 08:57 (Zofran Odt) 4 mg Q6H PRN PO 08/26/17 07:45 08/26/17 08:31 (Neurontin) 100 mg TID PO 08/26/17 09:00 08/27/17 16:51 (Keppra) 1,000 mg BID PO 08/26/17 09:00 08/27/17 21:03 (Prinivil) 2.5 mg DAILY PO 08/26/17 09:00 08/27/17 08:54 (Toprol Xl) 50 mg DAILY PO 08/26/17 09:00 08/27/17 08:55 (Xarelto) 20 mg DAILY PO 08/26/17 09:00 Future Hold 08/27/17 09:26 (Pravachol) 20 mg DAILY PO 08/26/17 09:00 08/27/17 08:55 (Pill Splitter) 1 ea UNSCH PRN OTHER 08/26/17 08:15 (Romazicon Inj) 0.2 mg Q1M PRN IV PUSH 08/26/17 10:00 (Ativan) 1 mg Q4H PRN PO 08/26/17 10:00 08/26/17 21:43 (Ativan Inj) 1 mg Q4H PRN IV PUSH 08/26/17 10:00 (Ativan) 2 mg Q2H PRN PO 08/26/17 10:00 (Ativan Inj) 2 mg Q2H PRN IV PUSH 08/26/17 10:00 (Ativan Inj) 2 mg Q1H PRN IV PUSH 08/26/17 10:00 (Ativan Inj) 2 mg Q15M PRN IV PUSH 08/26/17 10:00 (NovoLOG SUPPLEMENTAL SCALE) 1 ACHS SLIDING SCALE SQ 08/26/17 17:00 (D50w (Vial) Inj) 50 ml UNSCH PRN IV PUSH 08/26/17 16:45 (Glucagon Inj) 1 mg UNSCH PRN OTHER 08/26/17 16:45 (Plavix) 75 mg DAILY PO 08/27/17 18:00 08/27/17 18:27 (Morphine Inj) 5 mg Q2H PRN IV PUSH 08/27/17 18:00 08/28/17 02:01 (Nitroglycerin 2% Oint) 0.5 inch Q6HR TOPICAL 08/28/17 09:00 UNV (Zofran Odt) 4 mg Q6H PRN PO 08/28/17 09:00 UNV (Zofran Odt) 4 mg ONCE ONCE PO 08/28/17 09:00 08/28/17 09:01 UNV Vital Signs / I&O Vital Signs Date Time Temp Pulse Resp B/P (MAP) Pulse Ox O2 Delivery O2 Flow Rate FiO2 08/28/17 03:29 97.7 71 16 115/61 (79) 90 08/27/17 23:12 98.1 82 16 103/63 (76) 97 08/27/17 19:52 98.2 72 16 112/64 (80) 96 08/27/17 19:48 98 08/27/17 16:00 98.0 79 18 88/54 (65) 98 08/27/17 15:00 73 08/27/17 14:18 96 08/27/17 12:00 98.1 72 16 110/58 (75) 93 I/O 08/27/17 08/27/17 08/27/17 08/28/17 08/28/17 08/28/17 07:00 15:00 23:00 07:00 15:00 23:00 Intake Total 480 ml Balance 480 ml Intake Oral 480 ml # Voids 4 Physical Exam GENERAL: Well developed, well nourished. No acute distress. HEENT: Jugular venous pressure is normal. CHEST: Lungs clear to auscultation anteriorly. CARDIAC: Regular rate and rhythm without S3, S4, II/ holosystolic murmur apex , lower left sternal border. ABDOMEN: Soft, nontender, no hepatosplenomegaly. Bowel sounds present. EXTREMITIES: No clubbing, cyanosis, or edema. Laboratory Laboratory Tests Test 08/28/17 06:20 White Blood Count 4.1 TH/MM3 Red Blood Count 3.83 MIL/MM3 Hemoglobin 11.5 GM/DL Hematocrit 35.6 % Mean Corpuscular Volume 92.9 FL Mean Corpuscular Hemoglobin 30.0 PG Mean Corpuscular Hemoglobin Concent 32.3 % Red Cell Distribution Width 20.6 % Platelet Count 23 TH/MM3 Mean Platelet Volume 9.5 FL Neutrophils (%) (Auto) 64.8 % Lymphocytes (%) (Auto) 27.3 % Monocytes (%) (Auto) 6.2 % Eosinophils (%) (Auto) 1.1 % Basophils (%) (Auto) 0.6 % Neutrophils # (Auto) 2.6 TH/MM3 Lymphocytes # (Auto) 1.1 TH/MM3 Monocytes # (Auto) 0.3 TH/MM3 Eosinophils # (Auto) 0.0 TH/MM3 Basophils # (Auto) 0.0 TH/MM3 CBC Comment AUTO DIFF Differential Comment AUTO DIFF CONFIRMED Platelet Estimate LOW Platelet Morphology Comment NORMAL Ovalocytes 1+ Blood Smear Pathologist Review Blood Urea Nitrogen 10 MG/DL Creatinine 1.13 MG/DL Random Glucose 100 MG/DL Albumin 3.2 GM/DL Calcium Level 8.4 MG/DL Phosphorus Level 3.1 MG/DL Magnesium Level 2.0 MG/DL Sodium Level 133 MEQ/L Potassium Level 3.4 MEQ/L Chloride Level 99 MEQ/L Carbon Dioxide Level 22.2 MEQ/L Anion Gap 12 MEQ/L Estimat Glomerular Filtration Rate 67 ML/MIN Assessment and Plan Problem List: (1) Coronary artery disease ICD Codes: I25.10 - Coronary artery disease Status: Chronic Plan: Ongoing CP's, undoubtedly some or most of which is non-cardiac in origin. Patient demonstrates drug seeking behavior. On the other hand, his nuclear stress test pictures from last month show lateral and basal inferior ischemia, which in a left dominant system may indicate restenosis of the left main stent. Concerning he has not been taking any antiplatelet agent recently despite being recommended Plavix by Dr. Cardoso last month. REC cath once platelet count > 70 agree with addition of nitro paste continue beta bahman, Plavix (2) Ischemic cardiomyopathy ICD Codes: I25.5 - Ischemic cardiomyopathy Status: Chronic Plan: EF 30% by cath earlier this year. Stable. Compensated. Continue current medical regimen. (3) Paroxysmal atrial fibrillation ICD Codes: I48.0 - Paroxysmal atrial fibrillation Status: Chronic Plan: Stable. Xarelto on hold in anticipation of cath. Remains in NSR. (4) HTN (hypertension) ICD Codes: I10 - Hypertension Status: Chronic Plan: Stable. Mostly normotensive. Code Status full code Discussed Condition With patient Problem Qualifiers (1) Coronary artery disease: Qualified Codes: I25.119 - Atherosclerotic heart disease of [place] coronary artery with unspecified angina pectoris (2) HTN (hypertension): Qualified Codes: I10 - Essential (primary) hypertension Geovanny Patel MD Aug 28, 2017 09:07
--- NOTE | 2017-08-28 09:10 | HHI.PR ---
Subjective Remarks Pt complaining of 9/10 chest pains constant, not improving. Requesting morphine and states "that is the only thing that helps".He states that he had some lightheadedness yesterday but none today. Pt refuses nitroglycerin initially because he states "it makes very nauseous and every time I come here I tell them not to give it to me". at this time, he denies any nausea or vomiting. Objective Vitals Vital Signs Date Time Temp Pulse Resp B/P (MAP) Pulse Ox O2 Delivery O2 Flow Rate FiO2 08/28/17 03:29 97.7 71 16 115/61 (79) 90 08/27/17 23:12 98.1 82 16 103/63 (76) 97 08/27/17 19:52 98.2 72 16 112/64 (80) 96 08/27/17 19:48 98 08/27/17 16:00 98.0 79 18 88/54 (65) 98 08/27/17 15:00 73 08/27/17 14:18 96 08/27/17 12:00 98.1 72 16 110/58 (75) 93 I/O 08/27/17 08/27/17 08/27/17 08/28/17 08/28/17 08/28/17 07:00 15:00 23:00 07:00 15:00 23:00 Intake Total 480 ml Balance 480 ml Intake Oral 480 ml # Voids 4 Result Diagram: 08/28/17 0620 08/28/17 0620 Imaging Last Impressions Chest X-Ray 08/26/17 0000 Signed Impressions: CONCLUSION: Chronic cardiac silhouette enlargement. Lungs are clear. Objective Remarks GENERAL: laying in bed, complaining of 9/10 chest pain but appears comfortable. CARDIOVASCULAR: Regular rate and rhythm without murmurs RESPIRATORY: Breath sounds equal bilaterally. No accessory muscle use. I am able to reproduce some of his chest pain but then he states "you are making it worst" GASTROINTESTINAL: Abdomen soft, non-tender, nondistended. MUSCULOSKELETAL: No edema. A/P Assessment and Plan //Chest pain //Coronary artery disease -There is concerns for noncompliance with medications likely secondary to chronic alcohol abuse. -With history of CABG Recent stenting. Troponin 0.04 x 3. Cardiology was consulted and Dr. Patel evaluated the patient. He recommended cardiac cath on wednesday (if plt count at least 70K) and held xarelto. However Pt also has severe thrombocytopenia and repeat lab this morning shows a plt count of 23K. Pt is on plavix and I am concerned that stopping the plavix could make his cardiac condition worst. I have consulted hematology for further recs as this patient should be on a heparin gtt (chest pain and hx of paroxismal atrial fib) and Dr. Patel agrees however cannot put him on it due to his very low platelet count. Added nitroglycerin patch q6hr w zofran as needed I will check x-ray of the ribs to r/o any fx especially on the left as apparently there is concerns that he could have fallen against a table while drunk. //Hypertension = Continue blood pressure medications and adjust as necessary. //Paroxysmal atrial fibrillation. -Likely exacerbated by chronic alcohol use Continue beta-bahman. At this time xarelto has been held for possible procedure on wednesday by cards. //Hyperlipidemia = Continue home statin. //Diabetes mellitus. Diabetic diet, insulin sliding scale. //Chronic alcohol abuse //Risk for alcohol withdrawal = CIWA protocol. Cessation counseling provided. //History of seizure disorder. could be secondary to alcohol withdrawal, however patient denies. Continue Keppra. //Thrombocytopenia. down to Platelets 23K. No signs of bleeding currently. Will monitor. Hematology consult placed. will check a peripheral smear. //Chronic pain disorder. Patient has not picked up pain meds in several months. Due to substance use disorder, important to try to avoid narcotics if possible. Pt is demanding we only give him morphine for his chest pain and refused the nitroglycerin patch claiming it makes him extremely nauseous. I had a long conversation w him that management of chest pain is morphine as needed and nitro! I explained to him that he is already on high doses of morphine and the nitroglycerin will definitely help. I told him that I would give him zofran w the nitro and he finally agreed to take it. Discharge Planning I personally discussed the case w Dr. Patel this morning. As of now, the plan is for a cardiac cath on wednesday if plts >70K. Pt should be on a heparin gtt however unable to do so due to his low plts count. Hematology has been consulted for further assistance. Malinda Pederson MD Aug 28, 2017 09:10
[2017-08-28] MEDS ORDERED: ONDANSETRON ODT 4 MG TAB PO ONE (09:30)
[2017-08-28] MEDS: GABAPENTIN 100 MG CAP PO SCH ×3 (09:51→18:15)
[2017-08-28] MEDS: CLOPIDOGREL 75 MG TAB PO SCH (09:52)
[2017-08-28] MEDS: LISINOPRIL 5 MG TAB PO SCH (09:52)
[2017-08-28] MEDS: levETIRAcetam 500 MG TAB PO SCH ×2 (09:52→21:32)
[2017-08-28] MEDS: NITROGLYCERIN 2% OINT 1 GM PACKET TOPICAL SCH ×4 (09:53→18:22)
[2017-08-28] MEDS: METOPROLOL SUCCINATE 50 MG EXTENDED RELEASE TAB PO SCH (09:53)
[2017-08-28] MEDS: PRAVASTATIN SOD 20 MG TAB PO SCH (09:53)
--- NOTE | 2017-08-28 10:01 | RADRPT ---
EXAM DATE: 08/28/2017 9:49 AM EDT AGE/SEX: 57 years / Male INDICATIONS: Left sided rib pain. CLINICAL DATA: This is the patient's initial encounter. Patient reports that signs and symptoms have been present for 1 day and indicates a pain score of 9/10. MEDICAL/SURGICAL HISTORY: . Chronic obstructive pulmonary disease. . CABG. Pacemaker. COMPARISON: [facility] [place], CHEST SINGLE AP, 08/26/2017. [facility] [place], CHEST SINGLE AP, 07/24/2017. . FINDINGS: Multiple views of the bilateral ribs demonstrate no fracture or acute abnormality. No pneumothorax is identified. The visualized surrounding structures demonstrate no acute finding. There is an old heal ed right seventh rib fracture. Patient is post median sternotomy with a right chest pacing device pre sent. There is stable sclerosis in the left humeral head related to osteonecrosis. CONCLUSION: 1. No acute fracture is identified. 2. There is stable changes related to osteonecrosis of the left humeral head. Electronically signed by: Felipe Gamble MD 08/28/2017 10:00 AM EDT
[2017-08-28] MEDS: SODIUM CHLORIDE 0.9% FLUSH 10 ML FLUSH IV FLUSH SCH ×2 (13:42→21:32)
--- NOTE | 2017-08-28 18:10 | MB ---
cc: Stephen Hernandez MD, Richard MD DATE: 08/28/2017 REASON FOR CONSULTATION: A patient with severe thrombocytopenia on Xarelto requiring a cardiac catheterization due to chest pain with a history of severe coronary artery disease. PATIENT PROFILE: The patient is a 57-year-old white male. He is . He has been 3 times. He has 2 children, a daughter, age 18, and a son, age 15. He was born in [place], [place]. He has lived in [place] for 5 years. He lives alone. He is on disability. He currently smokes half a pack of cigarettes per day. He drinks approximately 4 days per week and, when he consumes alcohol, he has between 9 and 12 beers a day. He has been doing for these the past 9 months. 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 He uses no other recreational drugs other than alcohol. The patient came to the hospital because of chest pain. On 08/26/2017, he complained of severe sharp pain in the left chest. Upon arrival, he had a hemoglobin of 11.6, white count 4700, and a platelet count of 45,000. MCV was 90, neutrophils of 45%, lymphocytes 48%. The platelet count has subsequent fallen. On 08/28, hemoglobin 11.5, white count 4000, platelet count of 23,000. Xarelto has been discontinued. He was started on Plavix 75 mg a day. His cane weigher, Dr. Patel, is planning on doing a cardiac catheterization on Wednesday and would like to see a platelet count of approximately 70,000. The patient has undergone extensive evaluation in the past for thrombocytopenia. On 05/24/2014, a bone marrow aspirate and biopsy was done. The patient had a normal cellular bone marrow with megakaryocytic hyperplasia and increased iron. He has mild splenomegaly. An ultrasound of the abdomen on 03/24/2017 showed splenomegaly with the spleen measuring up to 14.[address] scan of the abdomen and pelvis from 11/23/2015 showed steatosis of the liver. PAST SURGICAL HISTORY: 1. Coronary artery bypass surgery grafting at age 36. 2. AICD implant in 2007. The device had to be removed in 2014 due to an infection and then a second device was placed on 09/05/2015. 2. Approximately 2 months ago, the patient underwent cardiac stent placement at the [facility] in [place] 3: He has had cardiac ablations due to atrial fibrillation. PAST MEDICAL HISTORY: 1. Diabetes. 2. COPD. 3. Seizure disorder. 4. Paroxysmal atrial fibrillation, status post 2 ablations. 5. Hypertension. 6. Hyperlipidemia. 7. Mitral regurgitation. 8. Severe coronary artery disease with bypass surgery and stents. 9. cardiomyopathy MEDICATIONS PRIOR TO ADMISSION: 1. Simvastatin 10 mg a day. 2. Metoprolol 50 mg a day. 3. Xarelto 20 mg a day. 4. Lisinopril 2.5 mg a day. 5. Keppra. 5. Gabapentin. ALLERGIES: NO OBVIOUS ALLERGIES: ASPIRIN CAUSED GI UPSET, NITROGLYCERIN CAUSED HIM TO FEEL SICK. FAMILY HISTORY: Mother at 67 of COPD. Father at 56 of some type of cancer. The patient has 3 sisters and 2 brothers who are living. REVIEW OF SYSTEMS: No change in vision or hearing. CARDIOVASCULAR: Notable for severe left sharp chest pain. RESPIRATORY: Mild exertional shortness of breath. GASTROINTESTINAL: No melena, hematochezia, hematemesis. GENITOURINARY: No dysuria or frequency. MUSCULOSKELETAL: Pain in back and shoulders. NEUROLOGIC: No focal weakness. SKIN: Increased bruising. PSYCHIATRIC: The patient has had anxiety and depression. LABORATORY DATA: 08/28/2017: Hemoglobin 11.5, white count 4100, and platelets were 23,000. Electrolytes, BUN and creatinine unremarkable. AST 166, ALT 63, alkaline phosphatase 323. Serum ethanol level on 08/26 was 302. Of note, the patient tells me the last time he had alcohol was approximately 8 days ago, in spite of the ETOH level of 302 on 08/26. PHYSICAL EXAMINATION: GENERAL: Reveals a gentleman who appears uncomfortable, but not acutely ill. VITAL SIGNS: Blood pressure is 120/70, respiratory rate 20, pulse 76, afebrile, O2 saturation is 96%. HEENT: Head is normocephalic. Sclerae and conjunctivae normal. Oropharynx unremarkable. LYMPHS: There is no cervical, supraclavicular, axillary or inguinal adenopathy. HEART: Regular rhythm. 2/6 systolic murmur. LUNGS: Clear without rales, wheezes, or rhonchi. The patient has a pacemaker in the right side of the chest. ABDOMEN: Soft. No enlargement of liver or spleen. No masses. No tenderness. EXTREMITIES: Trace edema. MUSCULOSKELETAL: Some limited movement of the back. NEUROLOGIC: No focal weakness. Cognition and affect normal. SKIN: Normal with very limited ecchymosis. There is no weakness or ataxia. ASSESSMENT: The patient has thrombocytopenia. He has had longstanding thrombocytopenia. In looking back over previous records, in 05/2014 the platelet count was 64,000. His platelet count has varied from as high as 122,000 in 03/2017 and 138,000 in 06/2015 to the current value of 23,000 on 08/28/2017. The most likely explanation for the worsening thrombocytopenia is due to the acute toxicity of alcohol. It is highly unlikely he has immune thrombocytopenic purpura. I suspect that he has some degree of portal hypertension which contributes to chronic thrombocytopenia, but the current level is most likely due to the acute effects of alcohol . His recent consumption has been excessive. Unfortunately, this gentleman has significant medical problems with severe coronary artery disease, cardiomyopathy, bypass surgery and stents. Dr. Patel feels that if possible, he would like to proceed with a cardiac catheterization on Wednesday. PLAN: On Wednesday, I am going to give him 2 single unit donor platelet packs and check a CBC and platelet count 1 hour afterwards and then in the morning. Hopefully, this will be adequate. If it is not, one can give an additional platelet pack prior to the catheterization. If for some reason the platelet count does not go up, then I would be highly suspicious of an autoimmune thrombocytopenia, which is unlikely given his history of alcohol use and the fact that this is longstanding problem. I do not see any evidence of disseminated intravascular coagulation, but will repeat PT PTT and fibrinogen tomorrow. He cannot take Xarelto given the thrombocytopenia and is potentially at risk even with Plavix. Will arrange for a platelet transfusions tomorrow with followup CBC and platelet count. The above was discussed with Dr. Patel. MD MAKEDA Kelsey/ , 05:13 PM , 06:10 PM [place]
[2017-08-29] VITALS (12 sets, daily range): BP systolic 87–165; BP diastolic 54–97; PULSE 63–84; RESP 16–20; TEMP 97.6–98.2; O2SAT 96–100
[2017-08-29] MEDS ORDERED: SODIUM CHLORID 0.9% 500 ML INJ 500 ML IV ONE
[2017-08-29] MEDS ORDERED: NITROGLYCERIN 2% OINT 1 GM PACKET TOPICAL PRN
[2017-08-29 07:09] LABS: HEMATOCRIT 30.2 % (39.0-51.0); HEMOGLOBIN 9.7 GM/DL (13.0-17.0); MEAN CORPUSCULAR HEMOGLOBIN 30.3 PG (27.0-34.0); MEAN CORPUSCULAR HGB CONC 32.2 % (32.0-36.0); MEAN PLATELET VOLUME 9.2 FL (7.0-11.0); PLATELET COUNT 20 TH/MM3 (150-450); RED BLOOD COUNT 3.21 MIL/MM3 (4.50-5.90); RED CELL DISTRIBUTION WIDTH 20.2 % (11.6-17.2); WHITE BLOOD COUNT 3.5 TH/MM3 (4.0-11.0)
[2017-08-29 07:18] LABS: PROTHROMBIN TIME - PATIENT 10.6 SEC (9.8-11.6)
[2017-08-29 07:35] LABS: ALBUMIN 2.8 GM/DL (3.4-5.0); AST (GOT) 109 U/L (15-37); BICARBONATE 25.1 MEQ/L (21.0-32.0); BLOOD UREA NITROGEN 13 MG/DL (7-18); CALCIUM 8.1 MG/DL (8.5-10.1); CHLORIDE 100 MEQ/L (98-107); CREATININE 1.25 MG/DL (0.60-1.30); GLOMERULAR FILTRATION RATE 60 ML/MIN (>89); GLUCOSE,RANDOM 101 MG/DL (74-106); SODIUM (NA) 134 MEQ/L (136-145)
[2017-08-29 07:38] LABS: ALKALINE PHOSPHATASE 376 U/L (45-117); ALT (GPT) 68 U/L (12-78); TOTAL BILIRUBIN ADULT 0.4 MG/DL (0.2-1.0); TOTAL PROTEIN 6.3 GM/DL (6.4-8.2)
[2017-08-29] MEDS: INSULIN ASPART SUPPLEMENTAL SCALE SQ SCH ×4 (09:06→21:00)
[2017-08-29] MEDS: LISINOPRIL 5 MG TAB PO SCH (09:09)
[2017-08-29] MEDS: GABAPENTIN 100 MG CAP PO SCH ×3 (09:09→18:40)
[2017-08-29] MEDS: PRAVASTATIN SOD 20 MG TAB PO SCH (09:09)
[2017-08-29] MEDS: levETIRAcetam 500 MG TAB PO SCH ×2 (09:09→20:30)
[2017-08-29] MEDS: METOPROLOL SUCCINATE 25 MG EXTENDED RELEASE TAB PO SCH (09:10)
[2017-08-29] MEDS: CLOPIDOGREL 75 MG TAB PO SCH (09:10)
[2017-08-29] MEDS: SODIUM CHLORIDE 0.9% FLUSH 10 ML FLUSH IV FLUSH SCH ×2 (09:10→21:00)
[2017-08-29] MEDS: MORPHINE SULFATE 8 MG/ML INJ IV PUSH PRN (09:11)
[2017-08-29] MEDS ORDERED: SODIUM CHLOR 0.9% 250 ML INJ 250 ML IV ONE (09:15)
--- NOTE | 2017-08-29 09:17 | PD.ONC.PN ---
Subjective Subjective Remarks Afebrile Pt reports he continues to have chest pain- same intensity. Denies any shortness of breath currently denies any bleeding or oozing from his gums Objective Data Date Time Temp Pulse Resp B/P (MAP) Pulse Ox O2 Delivery O2 Flow Rate FiO2 08/29/17 08:31 98.2 70 20 104/60 (75) 98 08/29/17 03:43 98.0 82 18 106/63 (77) 100 08/29/17 00:45 68 08/28/17 23:17 97.9 64 18 88/52 (64) 99 85/54 (64) 08/28/17 20:41 98.2 71 18 115/59 (77) 100 08/28/17 19:42 66 08/28/17 17:05 98.2 70 20 100/65 (77) 98 08/28/17 12:45 98.6 76 20 128/68 (88) 96 08/29/17 08/29/17 08/29/17 07:00 15:00 23:00 Intake Total 500 ml Balance 500 ml Result Diagram: 08/29/17 0645 08/29/17 0645 Laboratory Results Laboratory Tests Test 08/29/17 06:45 White Blood Count 3.5 TH/MM3 Red Blood Count 3.21 MIL/MM3 Hemoglobin 9.7 GM/DL Hematocrit 30.2 % Mean Corpuscular Volume 94.0 FL Mean Corpuscular Hemoglobin 30.3 PG Mean Corpuscular Hemoglobin Concent 32.2 % Red Cell Distribution Width 20.2 % Platelet Count 20 TH/MM3 Mean Platelet Volume 9.2 FL Prothrombin Time 10.6 SEC Prothromb Time International Ratio 1.0 RATIO Activated Partial Thromboplast Time 24.8 SEC Fibrinogen 286 mg/dL Blood Urea Nitrogen 13 MG/DL Creatinine 1.25 MG/DL Random Glucose 101 MG/DL Total Protein 6.3 GM/DL Albumin 2.8 GM/DL Calcium Level 8.1 MG/DL Alkaline Phosphatase 376 U/L Aspartate Amino Transf (AST/SGOT) 109 U/L Alanine Aminotransferase (ALT/SGPT) 68 U/L Total Bilirubin 0.4 MG/DL Sodium Level 134 MEQ/L Potassium Level 3.8 MEQ/L Chloride Level 100 MEQ/L Carbon Dioxide Level 25.1 MEQ/L Anion Gap 9 MEQ/L Estimat Glomerular Filtration Rate 60 ML/MIN Administered Medications Medications (Trade) Dose Ordered Sig/Viky Route PRN Reason Start Time Stop Time Status Last Admin Dose Admin Sodium Chloride (NS Flush) 2 ml BID IV FLUSH 08/26/17 09:00 08/29/17 09:10 Gabapentin (Neurontin) 100 mg TID PO 08/26/17 09:00 08/29/17 09:09 Levetriacetam (Keppra) 1,000 mg BID PO 08/26/17 09:00 08/29/17 09:09 Lisinopril (Prinivil) 2.5 mg DAILY PO 08/26/17 09:00 08/29/17 09:09 Rivaroxaban (Xarelto) 20 mg DAILY PO 08/26/17 09:00 Future Hold 08/27/17 09:26 Pravastatin Sodium (Pravachol) 20 mg DAILY PO 08/26/17 09:00 08/29/17 09:09 Lorazepam (Ativan) 1 mg Q4H PRN PO CIWA 8 - 10 08/26/17 10:00 08/26/17 21:43 Clopidogrel Bisulfate (Plavix) 75 mg DAILY PO 08/27/17 18:00 08/29/17 09:10 Morphine Sulfate (Morphine Inj) 5 mg Q2H PRN IV PUSH CHEST PAIN 08/27/17 18:00 08/29/17 09:11 Metoprolol Succinate (Toprol Xl) 25 mg DAILY PO 08/29/17 09:00 08/29/17 09:10 Objective Remarks GENERAL: Somewhat disheveled middle-aged male resting in bed in no obvious distress SKIN: Warm and dry. No oozing from lines HEAD: Normocephalic. EYES: No scleral icterus. No injection or drainage. NECK: Supple, trachea midline. No JVD or lymphadenopathy. CARDIOVASCULAR: Regular rate and rhythm without murmurs. RESPIRATORY: Clear posteriorly. Breathing unlabored at rest. GASTROINTESTINAL: Abdomen soft, non-tender, nondistended. EXTREMITIES: No cyanosis, or edema. MUSCULOSKELETAL: Adequate muscle tone. NEUROLOGICAL: No obvious focal deficit. Awake, alert, and oriented x3. Assessment/Plan Assessment 57-year-old male with history of alcohol abuse admitted with chest pain found to have thrombocytopenia Plan The patient's platelets today are 20,000. He is not having any bleeding. Fibrinogen normal and there is no sign of DIC. I have spoken with Dr. Mcneil's who informs me that the plan for the cardiac cath is for 10 AM tomorrow. Transfuse 2 units platelets this morning. Recheck CBC at least 1 hour posttransfusion. Goal to maintain platelet count at 70,000 prior to cardiac cath. Patient was counseled to stop drinking alcohol. Attending Statement The exam, history, and the medical decision-making described in the above note were completed with the assistance of the mid-level provider. I reviewed and agree with the findings presented. I attest that I had a [id number] encounter with the patient on the same day, and personally performed and documented my assessment and findings in the medical record. Platelet count is 20,000 this a.m. Hemoglobin has likewise fallen. The patient received 2 units of platelets. In an hour he will have a repeat CBC and platelet count. This should help tell us if we have autoimmune thrombocytopenia or decreased production secondary to alcohol. He continues to have pain in the left chest. He has significant chest wall tenderness on exam primarily involving the intercostal muscles. This is not present on the right side. It would not surprise me if his pain is musculoskeletal as I can easily reproduce the pain that he has by pushing against the medial left chest. Siomara Gan Aug 29, 2017 09:17 Stephen Hernandez MD Aug 29, 2017 14:13
--- NOTE | 2017-08-29 10:49 | PD.CARD.PN ---
Subjective Subjective Remarks Ongoing left parasternal and substernal CP, partial relief with morphine. No SOB, nausea, dizziness, palpitations, pleurisy. Objective Medications Item Value Date Time Metoprolol 25 mg 08/29/17 0900 Succinate DAILY/PO 08/29/17 0910 (Toprol Xl) Nitroglycerin 0.5 inch 08/29/17 0000 (Nitroglycerin Q6HR PRN/TOPICAL 2% Oint) Clopidogrel 75 mg 08/27/17 1800 Bisulfate DAILY/PO 08/29/17 0910 (Plavix) Lisinopril 2.5 mg 08/26/17 09 (Prinivil) DAILY/PO 08/29/17908 Pravastatin Sodium 20 mg 08/26/17899 (Pravachol) DAILY/PO 08/29/17 09 Current Medications Medications (Trade) Dose Ordered Sig/Viky Route Start Time Stop Time Status Last Admin (NS Flush) 2 ml UNSCH PRN IV FLUSH 08/26/17 06:00 (NS Flush) 2 ml BID IV FLUSH 08/26/17 09:00 08/29/17 09:10 (Neurontin) 100 mg TID PO 08/26/17 09:00 08/29/17 09:09 (Keppra) 1,000 mg BID PO 08/26/17 09:00 08/29/17 09:09 (Prinivil) 2.5 mg DAILY PO 08/26/17 09:00 08/29/17 09:09 (Xarelto) 20 mg DAILY PO 08/26/17 09:00 Future Hold 08/27/17 09:26 (Pravachol) 20 mg DAILY PO 08/26/17 09:00 08/29/17 09:09 (Pill Splitter) 1 ea UNSCH PRN OTHER 08/26/17 08:15 (Romazicon Inj) 0.2 mg Q1M PRN IV PUSH 08/26/17 10:00 (Ativan) 1 mg Q4H PRN PO 08/26/17 10:00 08/26/17 21:43 (Ativan Inj) 1 mg Q4H PRN IV PUSH 08/26/17 10:00 (Ativan) 2 mg Q2H PRN PO 08/26/17 10:00 (Ativan Inj) 2 mg Q2H PRN IV PUSH 08/26/17 10:00 (Ativan Inj) 2 mg Q1H PRN IV PUSH 08/26/17 10:00 (Ativan Inj) 2 mg Q15M PRN IV PUSH 08/26/17 10:00 (NovoLOG SUPPLEMENTAL SCALE) 1 ACHS SLIDING SCALE SQ 08/26/17 17:00 (D50w (Vial) Inj) 50 ml UNSCH PRN IV PUSH 08/26/17 16:45 (Glucagon Inj) 1 mg UNSCH PRN OTHER 08/26/17 16:45 (Plavix) 75 mg DAILY PO 08/27/17 18:00 08/29/17 09:10 (Morphine Inj) 5 mg Q2H PRN IV PUSH 08/27/17 18:00 08/29/17 09:11 (Zofran Odt) 4 mg Q6H PRN PO 08/28/17 09:00 (Nitroglycerin 2% Oint) 0.5 inch Q6HR PRN TOPICAL 08/29/17 00:00 (Toprol Xl) 25 mg DAILY PO 08/29/17 09:00 08/29/17 09:10 Sodium Chloride 250 ml @ 15 mls/hr ONCE ONCE IV 08/29/17 09:15 08/30/17 01:54 Vital Signs / I&O Vital Signs Date Time Temp Pulse Resp B/P (MAP) Pulse Ox O2 Delivery O2 Flow Rate FiO2 08/29/17 08:31 98.2 70 20 104/60 (75) 98 08/29/17 03:43 98.0 82 18 106/63 (77) 100 08/29/17 00:45 68 08/28/17 23:17 97.9 64 18 88/52 (64) 99 85/54 (64) 08/28/17 20:41 98.2 71 18 115/59 (77) 100 08/28/17 19:42 66 08/28/17 17:05 98.2 70 20 100/65 (77) 98 08/28/17 12:45 98.6 76 20 128/68 (88) 96 I/O 08/28/17 08/28/17 08/28/17 08/29/17 08/29/17 08/29/17 07:00 15:00 23:00 07:00 15:00 23:00 Intake Total 500 ml 500 ml Balance 500 ml 500 ml Intake Oral 500 ml IV Total 500 ml # Voids 3 Physical Exam GENERAL: Well developed, well nourished. No acute distress. HEENT: Jugular venous pressure is normal. CHEST: Lungs clear to auscultation. CARDIAC: Regular rate and rhythm without S3, S4, II/ holosystolic murmur apex , lower left sternal border. ABDOMEN: Soft, nontender, no hepatosplenomegaly. Bowel sounds present. EXTREMITIES: No clubbing, cyanosis, or edema. Laboratory Laboratory Tests Test 08/29/17 06:45 White Blood Count 3.5 TH/MM3 Red Blood Count 3.21 MIL/MM3 Hemoglobin 9.7 GM/DL Hematocrit 30.2 % Mean Corpuscular Volume 94.0 FL Mean Corpuscular Hemoglobin 30.3 PG Mean Corpuscular Hemoglobin Concent 32.2 % Red Cell Distribution Width 20.2 % Platelet Count 20 TH/MM3 Mean Platelet Volume 9.2 FL Prothrombin Time 10.6 SEC Prothromb Time International Ratio 1.0 RATIO Activated Partial Thromboplast Time 24.8 SEC Fibrinogen 286 mg/dL Blood Urea Nitrogen 13 MG/DL Creatinine 1.25 MG/DL Random Glucose 101 MG/DL Total Protein 6.3 GM/DL Albumin 2.8 GM/DL Calcium Level 8.1 MG/DL Alkaline Phosphatase 376 U/L Aspartate Amino Transf (AST/SGOT) 109 U/L Alanine Aminotransferase (ALT/SGPT) 68 U/L Total Bilirubin 0.4 MG/DL Sodium Level 134 MEQ/L Potassium Level 3.8 MEQ/L Chloride Level 100 MEQ/L Carbon Dioxide Level 25.1 MEQ/L Anion Gap 9 MEQ/L Estimat Glomerular Filtration Rate 60 ML/MIN Assessment and Plan Problem List: (1) Coronary artery disease ICD Codes: I25.10 - Coronary artery disease Status: Chronic Plan: Ongoing CP's, undoubtedly most of which is non-cardiac in origin. Patient has demonstrated drug seeking behavior. On the other hand, his nuclear stress test pictures from last month show lateral and basal inferior ischemia, which in a left dominant system may indicate restenosis of the left main stent. Concerning he has not been taking any antiplatelet agent recently despite being recommended Plavix by Dr. Cardoso last month. REC cath once platelet count > 70; discussed with Dr. Hernandez, patient to get platelet transfusion tonight continue current medications for now (2) Ischemic cardiomyopathy ICD Codes: I25.5 - Ischemic cardiomyopathy Status: Chronic Plan: EF 30% by cath earlier this year. Stable. Compensated. Continue beta bahman, [id number]. (3) Paroxysmal atrial fibrillation ICD Codes: I48.0 - Paroxysmal atrial fibrillation Status: Chronic Plan: Stable. Xarelto on hold in anticipation of cath. Remains in NSR. (4) HTN (hypertension) ICD Codes: I10 - Hypertension Status: Chronic Plan: Stable. Mostly normotensive. Code Status full code Discussed Condition With patient Problem Qualifiers (1) Coronary artery disease: Qualified Codes: I25.119 - Atherosclerotic heart disease of [place] coronary artery with unspecified angina pectoris (2) HTN (hypertension): Qualified Codes: I10 - Essential (primary) hypertension Geovanny Patel MD Aug 29, 2017 10:49
[2017-08-29] MEDS ORDERED: MIDAZOLAM HCL 2 MG/2 ML VIAL IV PUSH SCH (11:00)
[2017-08-29] MEDS ORDERED: diphenhydrAMINE HCL 50 MG CAP PO SCH (11:00)
[2017-08-29] MEDS ORDERED: DIAZEPAM 10 MG TAB PO SCH (11:00)
--- NOTE | 2017-08-29 11:08 | HHI.PR ---
Subjective Remarks Nursing reports that the patient is asked for pain medication. Did have borderline low normal blood pressures. Otherwise no medical deterioration since last night. Patient has no new complaints at this time. Objective Vital Signs Date Time Temp Pulse Resp B/P (MAP) Pulse Ox O2 Delivery O2 Flow Rate FiO2 08/29/17 08:31 98.2 70 20 104/60 (75) 98 08/29/17 03:43 98.0 82 18 106/63 (77) 100 08/29/17 00:45 68 08/28/17 23:17 97.9 64 18 88/52 (64) 99 85/54 (64) 08/28/17 20:41 98.2 71 18 115/59 (77) 100 08/28/17 19:42 66 08/28/17 17:05 98.2 70 20 100/65 (77) 98 08/28/17 12:45 98.6 76 20 128/68 (88) 96 I/O 08/28/17 08/28/17 08/28/17 08/29/17 08/29/17 08/29/17 07:00 15:00 23:00 07:00 15:00 23:00 Intake Total 500 ml 500 ml Balance 500 ml 500 ml Intake Oral 500 ml IV Total 500 ml # Voids 3 Result Diagram: 08/29/1745 08/29/17644 Objective Remarks Heart sounds are regular rate rhythm Unlabored breathing, clear lungs Sitting up in bed, awake, alert, A/P Assessment and Plan //Chest pain //Coronary artery disease -There is concerns for noncompliance with medications likely secondary to chronic alcohol abuse. -With history of CABG Recent stenting. Troponin 0.04 x 3. Cardiology was consulted and Dr. Patel evaluated the patient. He recommended cardiac cath on wednesday (if plt count at least 70K) and held xarelto. However Pt also has severe thrombocytopenia and repeat lab low plt count of 23K. Pt is on plavix and I am concerned that stopping the plavix could make his cardiac condition worst. Hematology following , plans for platelet transfusion vs pheresis. Dr. Patel agrees however cannot put him on it due to his very low platelet count. CXR neg for fx. //Hypertension = Continue blood pressure medications and adjust as necessary. //Paroxysmal atrial fibrillation. -Likely exacerbated by chronic alcohol use Continue beta-bahman. At this time xarelto has been held for possible procedure on wednesday by cards. //Hyperlipidemia = Continue home statin. //Diabetes mellitus. Diabetic diet, insulin sliding scale. //Chronic alcohol abuse //Risk for alcohol withdrawal = CIWA protocol. Cessation counseling provided. //History of seizure disorder. could be secondary to alcohol withdrawal, however patient denies. Continue Keppra. //Thrombocytopenia. Still persistent, hematology suspect this is secondary to alcohol toxicity, awaiting platelet transfusion per hematology //Chronic pain disorder. Patient has not picked up pain meds in several months. Due to substance use disorder, important to try to avoid narcotics if possible. Pt is demanding we only give him morphine for his chest pain and refused the nitroglycerin patch claiming it makes him extremely nauseous. He has agreed to take the nitro finally. Kennedy Disla MD Aug 29, 2017 11:08
[2017-08-29] MEDS: SODIUM CHLOR 0.9% 1000 ML INJ 1,000 ML IV SCH ×2 (14:41→20:49)
[2017-08-29 17:40] LABS: HEMATOCRIT 31.3 % (39.0-51.0); MEAN CELL VOLUME 94.4 FL (80.0-100.0); MEAN CORPUSCULAR HEMOGLOBIN 30.2 PG (27.0-34.0); MEAN PLATELET VOLUME 8.8 FL (7.0-11.0); PLATELET COUNT 55 TH/MM3 (150-450); RED BLOOD COUNT 3.32 MIL/MM3 (4.50-5.90); RED CELL DISTRIBUTION WIDTH 20.5 % (11.6-17.2); WHITE BLOOD COUNT 3.7 TH/MM3 (4.0-11.0)
[2017-08-30] VITALS (14 sets, daily range): BP systolic 87–122; BP diastolic 57–72; PULSE 61–88; RESP 16–20; TEMP 97.7–98.7; O2SAT 95–100
[2017-08-30] MEDS ORDERED: LACTATED RINGER'S 1000 ML IV PRN (06:00)
[2017-08-30] MEDS ORDERED: CHLORHEXIDINE GLUCONATE 2 % 1 PACK (2 CLOTHS) TOPICAL PRN (06:00)
[2017-08-30] MEDS ORDERED: POVIDONE IODINE 5% (ANTISEPSIS KIT) 4 APPLICATIONS EACH NARE PRN (06:00)
[2017-08-30] MEDS ORDERED: SODIUM CHLORID 0.9% 500 ML IV PRN (06:00)
[2017-08-30] MEDS: SODIUM CHLOR 0.9% 1000 ML INJ 1,000 ML IV SCH (06:31)
[2017-08-30] MEDS: INSULIN ASPART SUPPLEMENTAL SCALE SQ SCH ×4 (08:00→20:21)
[2017-08-30] MEDS: METOPROLOL SUCCINATE 25 MG EXTENDED RELEASE TAB PO SCH (09:00)
[2017-08-30] MEDS: MORPHINE SULFATE 8 MG/ML INJ IV PUSH PRN (09:06)
[2017-08-30] MEDS: PRAVASTATIN SOD 20 MG TAB PO SCH (09:07)
[2017-08-30] MEDS: levETIRAcetam 500 MG TAB PO SCH ×2 (09:07→20:21)
[2017-08-30] MEDS: SODIUM CHLORIDE 0.9% FLUSH 10 ML FLUSH IV FLUSH SCH ×2 (09:08→20:21)
[2017-08-30] MEDS: GABAPENTIN 100 MG CAP PO SCH ×3 (09:08→17:07)
[2017-08-30] MEDS: LISINOPRIL 5 MG TAB PO SCH (09:08)
[2017-08-30] MEDS: CLOPIDOGREL 75 MG TAB PO SCH (09:08)
[2017-08-30 09:12] LABS: HEMATOCRIT 27.7 % (39.0-51.0); HEMOGLOBIN 8.9 GM/DL (13.0-17.0); MEAN CELL VOLUME 93.6 FL (80.0-100.0); MEAN CORPUSCULAR HEMOGLOBIN 30.2 PG (27.0-34.0); MEAN CORPUSCULAR HGB CONC 32.3 % (32.0-36.0); MEAN PLATELET VOLUME 8.4 FL (7.0-11.0); PLATELET COUNT 72 TH/MM3 (150-450); RED BLOOD COUNT 2.96 MIL/MM3 (4.50-5.90); RED CELL DISTRIBUTION WIDTH 20.2 % (11.6-17.2); WHITE BLOOD COUNT 2.8 TH/MM3 (4.0-11.0)
--- NOTE | 2017-08-30 10:30 | HHI.PR ---
Subjective Remarks Nursing reports that the patient is asked for pain medication. Did have borderline low normal blood pressures. Otherwise no medical deterioration since last night. Patient has no new complaints at this time. Objective Vital Signs Date Time Temp Pulse Resp B/P (MAP) Pulse Ox O2 Delivery O2 Flow Rate FiO2 08/30/17 08:00 70 08/30/17 07:46 98.1 80 18 117/72 (87) 97 08/30/17 06:21 98.5 74 18 111/62 96 08/30/17 05:27 98.7 68 17 105/65 98 08/30/17 05:03 98.4 68 18 87/60 97 08/30/17 03:36 98.3 68 20 118/68 (85) 98 08/29/17 23:17 97.8 84 20 165/97 (119) 98 08/29/17 19:47 97.9 84 20 110/60 (77) 96 08/29/17 16:16 98.2 68 20 96/54 (68) 98 08/29/17 13:15 98.0 68 16 92/58 100 08/29/17 12:56 98.0 64 16 101/59 100 08/29/17 12:41 97.6 63 16 87/61 100 08/29/17 12:37 97.6 66 16 87/61 100 08/29/17 12:01 64 16 96/62 100 08/29/17 11:46 97.7 63 18 97/58 98 I/O 08/29/17 08/29/17 08/29/17 08/30/17 08/30/17 08/30/17 07:00 15:00 23:00 07:00 15:00 23:00 Intake Total 500 ml 255 ml 380 ml 334 ml Output Total 800 ml 300 ml Balance 500 ml 255 ml -420 ml 334 ml -300 ml Intake Oral 380 ml IV Total 500 ml Platelets 245 ml 324 ml Blood Product IV Normal Saline Flush 10 ml 10 ml Output Urine Total 800 ml 300 ml Result Diagram: 08/30/1706 08/29/1745 Objective Remarks Heart sounds are regular rate rhythm Unlabored breathing, clear lungs Sitting up in bed, awake, alert, A/P Assessment and Plan //intractable Chest pain -cath is clean today; patent stents from before, yet chest pain continues. will get CTA pending stable RF. Likely will need GI consult for EGD if CTA shows no obvious cause. to continue plavix per cards and xarelto as well (next resumption dose for xarelto is for tomorrow) Worsening hepatitis -GGT elevated, 2/2 ETOH and/or possible hepatitis viral syndrome and/or passive congestion (cath-based EF ~30%). Give small NS bolus, repeat CMP in AM, viral hepatitis profile ordered chronic systolic heart failure (based upon cath EF) //Hypertension = Continue blood pressure medications and adjust as necessary. //Paroxysmal atrial fibrillation. -Likely exacerbated by chronic alcohol use Continue beta-bahman. At this time xarelto has been held for possible EGD in am //Hyperlipidemia = Continue home statin. //Diabetes mellitus. Diabetic diet, insulin sliding scale. //Chronic alcohol abuse = CIWA protocol. //History of seizure disorder. Continue Keppra. //Thrombocytopenia. appreciate heme recs, suspect this is secondary to alcohol toxicity, improved after platelet pheresis, cbc in AM //Chronic pain disorder alogn with opiod dependency - Patient has not picked up pain meds in several months. Due to substance use disorder, important to try to avoid narcotics if possible. AVOID IV MORPHINE in pt due to BP issues. Discharge Planning discharge on 08/31 if LFTs stabilize and if GI has no further work up planned. Cleared for discharge as well as EGD from cards standpoint; will need to stay on plavix at all times, may hold xarelto for procedures if desired. for afib, cards recommends xarelto Kennedy Disla MD Aug 30, 2017 10:30
[2017-08-30] MEDS ORDERED: HEPARIN-NS/PF INJ 1,000 ML ONE (10:52)
[2017-08-30] MEDS ORDERED: MIDAZOLAM HCL 2 MG/2 ML VIAL ONE (10:59)
[2017-08-30] MEDS ORDERED: SODIUM CHLOR 0.9% 1000 ML INJ 1,000 ML IV SCH (11:26)
--- NOTE | 2017-08-30 11:28 | CATHPROC ---
[employer] HIS Report Study Information Study Number Admission Scheduled Start Study Start [id number] Aug 26 2017 5:59AM 08/29/2017 Aug 30 2017 10:47AM [facility] Cardiac Catheterization Admit Source Facility Department Other [facility] - Nuclear Logging Engineer Physician and Clinical Staff Initial Geovanny Shelby Jig Bore Operatorniko Cleary RN, Patrick Jig Bore OperatorAntionette Miranda,NORA Recorder Rubi Gracia ,RT(R) Scrub Gabriela Cortez,VIDEO GAME DESIGNER TECH2 Procedures Performed Procedure Location (Site) Vessel Name Angiogram LV LV Ventricle Coronary Angiograms LCA Left Coronary Coronary Angiograms RCA Right Coronary L Heart Cath Wire insertion Fem Art (right) Femoral Art Equipment Time Ski Patrol Officer Description Size Mfg Part Number Used/Scraped TRANSDUCER, TRZero MotorcyclesAVE [id number] 10:56 [employer] COKER * Used W/STOCKCOCK *[id number] 11:12 [employer] VASCADE, FR6 CLOSURE SYSTEM FR 6\7 Used *[id number] *[id number] [id number] *[id number] [id number] *[id number] 10:56 [employer] BLANKET,WARM AIR CCL * Used *[id number] 10:56 [employer] PACK, CCL CUSTOM * Used *[id number] 10:56 Bonafide PACER PEN, SKIN DUAL W/ RULER * Used *[id number] 10:56 Sanitors SHEATH, FR6.5 PRELUDE 11CM FR 6.5 038ACT Used *[id number] 10:56 Sanitors WIRE, 3MMJ .035 180CM 180CM Used *[id number] 10:56 NAMIC MANIFOLD, 4 PORT * Used *[id number] 10:56 NYCOMED OMNIPAQUE, 350 MG, 150ML 150ML [id number] Used 11:14 NYCOMED OMNIPAQUE, 350 MG, 150ML 150ML [id number] Used History: Allergies Allergy Reaction nitroglycerin Nausea/Vomiting cefazolin Hives aspirin gi upset morphine Nausea/Vomiting History: Risk Factors Hypertension Dyslipidemia Previous RI Previous Heart Failure Yes Yes Yes Yes Prior Valve Prior PCI Prior PCIDate Prior CABG Prior CABGDate Surgery No Yes 04/15/2017 Yes 03/15/1998 Cerebrovascular Peripheral Artery Chronic Lung On Dialysis Diabetes Disease Disease Disease No No No Yes No History: Stress Tests Stress or Imaging Studies Performed Yes Standard Exercise Stress Test No Stress Echo No Stress Test SPECT Stress Test SPECT Result Stress Test SPECT Ischemia Risk/Extent Yes Positive Intermediate Stress Test CMR No Cardiac CTA Coronary Calcium Score No No Labs Hgb (g/dl) Hct (%) WBC (l/cumm) Platelets (thousands) 11.60-17.00 35.00-51.00 4.00-11.00 150.00-450.00 8.9 27.7 2.8 72 Glucose (mg/dl) BUN (mg/dl) Creatinine (mg/dl) BUN:Creatinine (1:x) 74.00-106.00 7.00-18.00 0.50-1.30 10.00-20.00 101 13 1.2 10.8 Na (meq/l) K (meq/l) 136.00-145.00 3.50-5.10 134 3.8 INR (PTT:PT) 0.90-1.10 1 Troponin I (ng/ml) CPK (u/l) CPK-MB (ng/ML) 0.02-0.05 26.00-308.00 0.50-3.60 0.04 482 5.4 Medication Medication Total Dose (Bolus/Oral) Medication Total Dosage/Unit 1% XYLOCAINE 15 mL FENTANYL 50 mcg VERSED 2 mg Medications (Bolus/Oral) Medication Time Given Dosage/Unit Administered By Reason 1% XYLOCAINE 08/30/2017 11:00:30 AM 15 mL Geovanny Patel 15 mL 1% XYLOCAINE given in lab by Geovanny Patel in Right Groin via Subcutaneous. Ordered by Matthieu Pateln. VERSED 08/30/2017 11:01:03 AM 2 mg Antionette Burns 2 mg VERSED given in lab by Antionette Burns, RN in Left Antecubital via Peripheral IV. Ordered by Geovanny Ochoa. FENTANYL 08/30/2017 11:02:10 AM 50 mcg Antionette Burns 50 mcg FENTANYL given in lab by Antionette Burns, RN in Left Antecubital via Peripheral IV. Ordered by Geovanny Patel. Medication (Drip) Medication Time Given Dosage/Unit Concentration/Unit Diluent (ml) Solution IV Solutions 08/30/2017 10:50:35 AM 50 mL (IV) NaCl .9 Patient arrived on IV Solutions via Peripheral IV. Pump/Drip Flow using NaCl .9. Initial Case Assessment Cardiovascular HR Rhythm NIBP 65 sr 118/79 Edema Present Skin color Skin None Normal Warm Dry Circulatory - Right Pulses Dorsalis Pedis Femoral 1 1 Scale (0,1,2,3,4,d) Circulatory - Left Pulses Dorsalis Pedis Femoral 1 1 Scale (0,1,2,3,4,d) Circulatory - Lower Extremities Color Lower Right Color Lower Left Normal Normal Neurological State Oriented to time-place- Alert Moves all extremities person Respiration - General Respiration Rate SpO2 (%) (B/min) 9 99 Final Case Assessment Cardiovascular HR Rhythm NIBP 65 sr 118/79 Edema Present Skin color Skin None Normal Warm Dry Circulatory - Right Pulses Dorsalis Pedis Femoral 1 1 Scale (0,1,2,3,4,d) Circulatory - Left Pulses Dorsalis Pedis Femoral 1 1 Scale (0,1,2,3,4,d) Circulatory - Lower Extremities Color Lower Right Color Lower Left Normal Normal Neurological State Oriented to time-place- Alert Moves all extremities person Respiration - General Respiration Rate SpO2 (%) (B/min) 9 99 Chronological Log Time Study Chronological Log 10:45:22 Patient arrived via Bed. 10:45:26 Patient Name, D.O.B, / Armband Verified By R.N. 10:50:24 Consent signed by the physician and the patient and verified by the Nuclear Logging Engineer staff. 10:50:25 Pre-op and post- op instructions given; patient acknowledges understanding of instructions. 10:50:26 Verbal Stimulation=2 Physical Stimulation=2 Airway=2 Respiration=2 TOTAL=8. (0=absent, 1=li mited, 2=present) 10:50:29 Patient has been NPO for More than 6Hrs. 10:50:29 Skin Breakdown- scab on left knee 10:50:31 Patient Warmer Placed on the Table. 10:50:31 Ester Prominences Protected 10:50:34 A # 20 IV was noted in the Antecubital (left). Grade = 0 10:50:35 Patient arrived on IV Solutions via Peripheral IV. Pump/Drip Flow using NaCl .9. 10:50:35 History and physical on the chart or being dictated. Assessment: Initial Case, HR=65 BPM, Rhythm=sr, FJKF=203/79 mmhg, Edema=None, Color=Normal, Ski n = Warm, Dry Right Pulses: Franklin Ped=1, Femoral=1 Left Pulses: Franklin Ped=1, Femoral=1 10:50:36 Lower Right Extremities: Color=Normal Lower Left Extremities: Color=Normal Neurological: State=Alert, Ox3, BENÍTEZ Respiration: Resp=9 B/min, SpO2=99 % Vitals capture started with the following parameters, Patient=Adult, Interval=5 min, Initial Pr dgsrat=837 mmHg, 10:51:19 Deflation Rate=5 mmHg, Cuff placed on Left Arm 10:52:00 HR=70 bpm, FSFA=345/74 mmhg, VaD5=380.0 %, Resp=6 B/min 10:56:53 HR=68 bpm, ZKQT=665/79 mmhg, VvR7=000.0 %, Resp=14 B/min 10:57:45 Pressure channel 1 zeroed. Time Out. Correct patient, correct procedure, correct physician, labs, allergies, and equipment verified with photo lab manager 10:59:15 team present. Fire risk assesment completed (see hard stop sheet for coding). Time Out Conc urred by MD and individual staff in procedure. 10:59:30 Reference ECG taken 11:00:26 Case Start 11:00:30 15 mL 1% XYLOCAINE given in lab by Geovanny Patel in Right Groin via Subcutaneous. Ordered by Geovanny Patel. 11:01:03 2 mg VERSED given in lab by Antionette Burns, RN in Left Antecubital via Peripheral IV. Orde red by Geovanny Patel. 11:01:43 Access site was Right Femoral Artery. 11:01:47 A wire was inserted via Fem Art (right). 11:01:49 A SHEATH, FR6.5 PRELUDE 11CM FR 6.5 was advanced into the Fem Art (right) using the Percuta neous technique. 11:01:52 HR=75 bpm, FJLO=065/81 mmhg, AkQ0=660.0 %, Resp=17 B/min A JL 4.0 INFINITI CATHETER FR 6 was advanced over a wire. OMNIPAQUE, 350 MG, 150ML 150ML was us ed for 11:01:58 injections. 11:02:10 50 mcg FENTANYL given in lab by Antionette Burns, NORA in Left Antecubital via Peripheral IV. Ordered by Geovanny Patel. Recorded Pressure: Ao, HR=79, Condition=Condition 1 11:02:55 (Aorta) Ao 110/63/81 11:03:01 The LCA was injected and visualized at various angles. OMNIPAQUE, 350 MG, 150ML 150ML used . After removing the current catheter a 3DRC INFINITI CATHETER FR 6 was advanced over a WIRE, 3MM J .035 180CM 11:04:28 180CM. 11:06:57 HR=72 bpm, CAVD=995/75 mmhg, SpO2=92.0 %, Resp=11 B/min 11:07:37 The RCA was injected and visualized at various angles. OMNIPAQUE, 350 MG, 150ML 150ML used . After removing the current catheter a PIGTAIL STR INFINITI CATHETER FR 6 was advanced over a WI RE, 3MMJ .035 11:08:40 180CM 180CM. Recorded Pressure: LV, HR=89, Condition=Condition 1 11:09:24 (Left Ventricle) LV 111/11/20 11:09:45 The LV was injected at 12 cc/sec for a total of 42. OMNIPAQUE, 350 MG, 150ML 150ML used. Recorded Pressure: LV, Ao, HR=74, Condition=Condition 1 11:10:14 (Left Ventricle) LV 106/10/24, (Aorta) Ao 96/48/68 11:10:29 Catheter was removed 11:11:16 An injection in the Fem Art (right) was made through the SHEATH, FR6.5 PRELUDE 11CM FR 6.5. 11:11:58 HR=76 bpm, JCXI=176/77 mmhg, SpO2=97.0 %, Resp=12 B/min 11:12:09 Case End (Physician broke scrub) Assessment: Final Case, HR=65 BPM, Rhythm=sr, LGZY=585/79 mmhg, Edema=None, Color=Normal, Skin = Warm, Dry Right Pulses: Franklin Ped=1, Femoral=1 Left Pulses: Franklin Ped=1, Femoral=1 11:12:21 Lower Right Extremities: Color=Normal Lower Left Extremities: Color=Normal Neurological: State=Alert, Ox3, BENÍTEZ Respiration: Resp=9 B/min, SpO2=99 % 11:12:51 Catheter(s) removed without difficulty 11:14:12 VASCADE, FR6 CLOSURE SYSTEM FR 6\7 placement in the Fem Art (right) 11:14:19 Sterile dressing applied to site 11:14:20 No case complications noted. 11:14:21 Cine recording checked. 11:14:23 Bedside Report will be given. 11:14:43 A Left Heart Cath was performed. 11:16:55 HR=77 bpm, VVRP=823/76 mmhg, SpO2=97.0 %, Resp=15 B/min 11:21:59 HR=66 bpm, HEXK=848/71 mmhg, SpO2=96.0 %, Resp=6 B/min 11:27:11 Patient moved to stretcher End Study - Contrast Media Used In Study Contrast Total Opened (mL) Total Used (mL) Total Wasted (mL) Omnipaque 125 125 0 End Study - Maximum Contrast Load Max Contrast Load (mL) 250.0 End Study - Radiation Exposure Fluoro Time (minutes) 3.2 End Study - Sheaths Sheaths Pulled By Sheath Hold Time (min) Gabriela Cortez End Study - Patient Disposition Complications Transferred To Interventional Outcome No Telemetry Bed No attempt made
[2017-08-30] MEDS ORDERED: ATROPINE SULFATE 1 MG/ML VIAL IV PRN (11:30)
[2017-08-30] MEDS ORDERED: SODIUM CHLOR 0.9% 250 ML INJ 250 ML IV PRN (11:30)
--- NOTE | 2017-08-30 11:31 | PD.CARD.PN ---
Subjective Subjective Remarks Ongoing left parasternal and substernal CP, no change. No SOB, nausea, dizziness, palpitations. Objective Medications Item Value Date Time Metoprolol 25 mg 08/29/17 0900 Succinate DAILY/PO (Toprol Xl) Clopidogrel 75 mg 08/27/17 1800 Bisulfate DAILY/PO 08/30/17907 (Plavix) Lisinopril 2.5 mg 08/26/17 09 (Prinivil) DAILY/PO 08/30/17907 Pravastatin Sodium 20 mg 08/26/17899 (Pravachol) DAILY/PO 08/30/17 09 Current Medications Medications (Trade) Dose Ordered Sig/Viky Route Start Time Stop Time Status Last Admin (NS Flush) 2 ml UNSCH PRN IV FLUSH 08/26/17 06:00 (NS Flush) 2 ml BID IV FLUSH 08/26/17 09:00 08/30/17 09:08 (Neurontin) 100 mg TID PO 08/26/17 09:00 08/30/17 09:08 (Keppra) 1,000 mg BID PO 08/26/17 09:00 08/30/17 09:07 (Prinivil) 2.5 mg DAILY PO 08/26/17 09:00 08/30/17 09:08 (Xarelto) 20 mg DAILY PO 08/26/17 09:00 Future Hold 08/27/17 09:26 (Pravachol) 20 mg DAILY PO 08/26/17 09:00 08/30/17 09:07 (Pill Splitter) 1 ea UNSCH PRN OTHER 08/26/17 08:15 (Romazicon Inj) 0.2 mg Q1M PRN IV PUSH 08/26/17 10:00 (Ativan) 1 mg Q4H PRN PO 08/26/17 10:00 08/26/17 21:43 (Ativan Inj) 1 mg Q4H PRN IV PUSH 08/26/17 10:00 (Ativan) 2 mg Q2H PRN PO 08/26/17 10:00 (Ativan Inj) 2 mg Q2H PRN IV PUSH 08/26/17 10:00 (Ativan Inj) 2 mg Q1H PRN IV PUSH 08/26/17 10:00 (Ativan Inj) 2 mg Q15M PRN IV PUSH 08/26/17 10:00 (NovoLOG SUPPLEMENTAL SCALE) 1 ACHS SLIDING SCALE SQ 08/26/17 17:00 (D50w (Vial) Inj) 50 ml UNSCH PRN IV PUSH 08/26/17 16:45 (Glucagon Inj) 1 mg UNSCH PRN OTHER 08/26/17 16:45 (Plavix) 75 mg DAILY PO 08/27/17 18:00 08/30/17 09:08 (Morphine Inj) 5 mg Q2H PRN IV PUSH 08/27/17 18:00 08/30/17 09:06 (Zofran Odt) 4 mg Q6H PRN PO 08/28/17 09:00 (Nitroglycerin 2% Oint) 0.5 inch Q6HR PRN TOPICAL 08/29/17 00:00 (Toprol Xl) 25 mg DAILY PO 08/29/17 09:00 08/29/17 09:10 Sodium Chloride 1,000 ml @ 100 mls/hr Q10H IV 08/29/17 10:49 09/03/17 10:48 08/30/17 06:31 (Benadryl) 50 mg SENIOR DATA WAREHOUSE DEVELOPER PO 08/29/17 11:00 09/02/17 10:59 (Valium) 10 mg SENIOR DATA WAREHOUSE DEVELOPER PO 08/29/17 11:00 09/02/17 10:59 (Versed Inj) 1 mg SENIOR DATA WAREHOUSE DEVELOPER IV PUSH 08/29/17 11:00 09/02/17 10:59 Lactated Ringer's 1,000 ml @ 30 mls/hr Q24H PRN IV 08/30/17 06:00 09/02/17 05:59 Sodium Chloride 500 ml @ 30 mls/hr [id number] PRN IV 08/30/17 06:00 09/02/17 05:59 (Betadine 5% Antisepsis Kit) 1 applic SENIOR DATA WAREHOUSE DEVELOPER PRN EACH NARE 08/30/17 06:00 09/02/17 05:59 (Chlorhexidine 2% Cloth) 3 pack SENIOR DATA WAREHOUSE DEVELOPER PRN TOPICAL 08/30/17 06:00 09/02/17 05:59 Vital Signs / I&O Vital Signs Date Time Temp Pulse Resp B/P (MAP) Pulse Ox O2 Delivery O2 Flow Rate FiO2 08/30/17 08:00 70 6/18/18 07:46 98.1 80 18 117/72 (87) 97 08/30/17 06:21 98.5 74 18 111/62 96 08/30/17 05:27 98.7 68 17 105/65 98 08/30/17 05:03 98.4 68 18 87/60 97 08/30/17 03:36 98.3 68 20 118/68 (85) 98 08/29/17 23:17 97.8 84 20 165/97 (119) 98 08/29/17 19:47 97.9 84 20 110/60 (77) 96 08/29/17 16:16 98.2 68 20 96/54 (68) 98 08/29/17 13:15 98.0 68 16 92/58 100 08/29/17 12:56 98.0 64 16 101/59 100 08/29/17 12:41 97.6 63 16 87/61 100 08/29/17 12:37 97.6 66 16 87/61 100 08/29/17 12:01 64 16 96/62 100 08/29/17 11:46 97.7 63 18 97/58 98 I/O 08/29/17 08/29/17 08/29/17 08/30/17 08/30/17 08/30/17 07:00 15:00 23:00 07:00 15:00 23:00 Intake Total 500 ml 255 ml 380 ml 334 ml Output Total 800 ml 300 ml Balance 500 ml 255 ml -420 ml 334 ml -300 ml Intake Oral 380 ml IV Total 500 ml Platelets 245 ml 324 ml Blood Product IV Normal Saline Flush 10 ml 10 ml Output Urine Total 800 ml 300 ml Physical Exam GENERAL: Well developed, well nourished. No acute distress. HEENT: Jugular venous pressure is normal. CHEST: Lungs clear to auscultation. CARDIAC: Regular rate and rhythm without S3, S4, II/ holosystolic murmur apex , lower left sternal border. ABDOMEN: Soft, nontender, no hepatosplenomegaly. Bowel sounds present. EXTREMITIES: No clubbing, cyanosis, or edema. Laboratory Laboratory Tests Test 08/29/17 17:30 08/30/17 08:06 White Blood Count 3.7 TH/MM3 2.8 TH/MM3 Red Blood Count 3.32 MIL/MM3 2.96 MIL/MM3 Hemoglobin 10.0 GM/DL 8.9 GM/DL Hematocrit 31.3 % 27.7 % Mean Corpuscular Volume 94.4 FL 93.6 FL Mean Corpuscular Hemoglobin 30.2 PG 30.2 PG Mean Corpuscular Hemoglobin Concent 32.0 % 32.3 % Red Cell Distribution Width 20.5 % 20.2 % Platelet Count 55 TH/MM3 72 TH/MM3 Mean Platelet Volume 8.8 FL 8.4 FL Assessment and Plan Problem List: (1) Coronary artery disease ICD Codes: I25.10 - Coronary artery disease Status: Chronic Plan: Appears CP noncardiac in origin. Left main and LAD stents patent on cath today. OK to discharge from cardiac standpoint. He must stay on clopidogrel. No aspirin if he remains on Xarelto. Follow up with Dr. Beaulieu. (2) Ischemic cardiomyopathy ICD Codes: I25.5 - Ischemic cardiomyopathy Status: Chronic Plan: EF 25-30% by cath. Stable. Compensated. Continue beta bahman, KELBY-I. (3) Paroxysmal atrial fibrillation ICD Codes: I48.0 - Paroxysmal atrial fibrillation Status: Chronic Plan: Stable. Remains in NSR. Recommend resume Xarelto on discharge. (4) HTN (hypertension) ICD Codes: I10 - Hypertension Status: Chronic Plan: Stable. Normotensive. Code Status full code Discussed Condition With patient Problem Qualifiers (1) Coronary artery disease: Qualified Codes: I25.119 - Atherosclerotic heart disease of [place] coronary artery with unspecified angina pectoris (2) HTN (hypertension): Qualified Codes: I10 - Essential (primary) hypertension Geovanny Patel MD Aug 30, 2017 11:31
[2017-08-30] MEDS ORDERED: PLAV75TA29 PO (11:35)
[2017-08-30] MEDS ORDERED: ATOR40TA16 PO (11:37)
[2017-08-30] MEDS ORDERED: METO1TAB42 PO (11:37)
--- NOTE | 2017-08-30 11:37 | HHI.DCPOC ---
Discharge Care Plan Diagnosis: (1) Paroxysmal A-fib (2) CAD (coronary artery disease) (3) Cardiomyopathy (4) Chest pain (5) Paroxysmal atrial fibrillation (6) Thrombocytopenia (7) ETOH abuse Additional Problems STOP SMOKING AND STOP DRINKING ALCOHOL Goals to Promote Your Health * To prevent worsening of your condition and complications * To maintain your health at the optimal level Directions to Meet Your Goals Take your medications as prescribed Follow your dietary instruction Follow activity as directed Keep your appointments as scheduled Take your immunizations and boosters as scheduled If your symptoms worsen call your PCP, if no PCP go to Urgent Care Center or Emergency Room Smoking is Dangerous to Your Health. Avoid second hand smoke Call the 24-hour hour crisis hotline for domestic abuse at Kennedy Disla MD Aug 30, 2017 11:37
--- NOTE | 2017-08-30 12:00 | MA ---
cc: Geovanny Patel MD DATE: 08/30/2017 PROCEDURE: Left heart catheterization, selective coronary angiography, left ventriculography. PROCEDURE NOTES: The patient was brought to the cardiac catheterization laboratory in a fasting state after having signed informed consent. The right groin was prepped and draped as per policy and anesthetized with 1% lidocaine. Arterial access was obtained via the right femoral artery and a 6-Persian sheath placed. Coronary arteriography was performed using 6-Persian Jammie left 4.0 and right progressive catheters. Left ventriculography was done using a standard 6-Persian pigtail. There were no apparent, immediate complications. His arteriotomy site was closed with VASCADE. HEMODYNAMIC DATA: Left ventricle 03/20/2017 with an end diastolic pressure 24 aorta 96/48 with a mean of 68. There was no significant transvalvular aortic gradient on pullback of the pigtail catheter. CORONARY ARTERIOGRAPHY: The left main demonstrates a stent at its ostium. The stent is widely patent. The left anterior descending demonstrates a stent at its ostium. In the MONTANO caudal view, there is suggestion there may be up to 40% restenosis of the stent right at the ostium. The mid to distal LAD has minimal luminal irregularities. The LAD gives rise to a small caliber diagonal which is normal. The left circumflex is a large, dominant vessel with minimal luminal irregularities in its mid portion. A small caliber obtuse marginal arising from the proximal left circumflex is normal. There is a small to medium sized ramus intermedius, which is angiographically normal. The right coronary artery is a medium size vessel which is angiographically normal. LEFT VENTRICULOGRAPHY: Contrast injection of the left ventricle induces ventricular tachycardia. There is suggestion of global hypokinesis. Ejection fraction is roughly estimated at 25-30 percent. There is apical akinesis. Severe mitral regurgitation is evident. CONCLUSIONS: 1. Widely patent left main stent, mild to moderate restenosis of an ostial LAD stent placed about 4 months ago. 2. Left dominant system. 3. Severely reduced left ventricular systolic function with ejection fraction estimated at 25-30 percent. 4. Severe mitral regurgitation. Geovanny Patel MD G[facility]/DL , 11:25 AM , 11:59 AM [place]
[2017-08-30] MEDS ORDERED: ALUMINUM/MAGNESIUM/SIMETH 30 ML CUP PO ONE (13:30)
[2017-08-30] MEDS ORDERED: LIDOCAINE VISCOUS 2% SOLN 15 ML UDC SWISH-SWAL ONE (13:30)
[2017-08-30] MEDS: MORPHINE SULFATE 15 MG TAB PO PRN ×3 (15:40→23:48)
[2017-08-30 15:45] LABS: ALBUMIN 3.1 GM/DL (3.4-5.0); CALCIUM 8.5 MG/DL (8.5-10.1); CREATININE 0.92 MG/DL (0.60-1.30); DIRECT BILIRUBIN ADULT 0.2 MG/DL (0.0-0.2)
[2017-08-30 15:47] LABS: INDIRECT BILIRUBIN 0.3 MG/DL (0.0-0.8); TOTAL BILIRUBIN ADULT 0.5 MG/DL (0.2-1.0)
[2017-08-30] MEDS ORDERED: IOHEXOL 350 MG/ML 10 ML VIAL (for RAD DIAG) IVCONTRAST ONE (16:26)
--- NOTE | 2017-08-30 16:43 | RADRPT ---
EXAM DATE: 08/30/2017 4:28 PM EDT AGE/SEX: 57 years / Male INDICATIONS: Chest pain. CLINICAL DATA: This is the patient's initial encounter. Patient reports that signs and symptoms have been present for 1 day and indicates a pain score of 6/10. MEDICAL/SURGICAL HISTORY: Aneurysm, abdominal. Chronic obstructive pulmonary disease. Hypertensio n. Pacemaker. RADIATION DOSE: 10.66 CTDI (mGy) COMPARISON: [facility] – [place]UL[place], 11/14/2016. . TECHNIQUE: Volumetric scanning was performed using a multi-row detector CT scanner during bolus infu maryellen of 65 ml Omnipaque 350 (iohexol) nonionic water-soluble contrast as a single exam dose. The marlin a was post processed with a variety of visualization algorithms including full volume maximum intensi ty projection and sliding thin slab reformation. Using automated exposure control and adjustment of the mA and/or kV according to patient size, radiation dose was kept as low as reasonably achievable t o obtain optimal diagnostic quality images. FINDINGS: Pulmonary Arteries: There is good visualization of the central pulmonary arteries. I do not see any filling defects to suggest central pulmonary emboli. Minimal artifact is present from pacer. Lung: Moderate emphysematous changes with a disease worse on the right. Minimal pleural thickening a djacent to the fissure on the right. The left lung is clear. Effusion: None. Mediastinum: Mediastinum is unremarkable. There there are pericardial calcifications on the undersur face of the heart involving the basilar pericardium. These findings are unchanged. Other: The axilla is unremarkable. CONCLUSION: 1. Negative for central pulmonary emboli 2. Minimal new parenchymal changes adjacent to the fissure on the right 3. Moderate of systems changes apices bilaterally worse in the right. Electronically signed by: Louis Rae MD 08/30/2017 4:41 PM EDT
[2017-08-30] MEDS ORDERED: ENOXAPARIN SODIUM 40 MG/0.4 ML SYRINGE SQ SCH (21:00)
[2017-08-30] MEDS ORDERED: SODIUM CHLOR 0.9% 250 ML INJ 250 ML IV ONE (23:15)
[2017-08-31] VITALS (13 sets, daily range): BP systolic 90–122; BP diastolic 51–70; PULSE 60–85; RESP 14–16; TEMP 98.2–98.6; O2SAT 95–99
[2017-08-31 03:35] LABS: AUTOMATED NEUTROPHIL # 1.9 TH/MM3 (1.8-7.7); BASOPHIL % 0.7 % (0.0-2.0); EOSINOPHIL # 0.1 TH/MM3 (0-0.4); EOSINOPHIL % 1.7 % (0.0-4.0); HEMATOCRIT 28.1 % (39.0-51.0); LYMPH % 33.9 % (9.0-44.0); LYMPHOCYTE # 1.2 TH/MM3 (1.0-4.8); MEAN CELL VOLUME 94.8 FL (80.0-100.0); MEAN CORPUSCULAR HEMOGLOBIN 30.3 PG (27.0-34.0); MEAN PLATELET VOLUME 8.9 FL (7.0-11.0); MONO % 9.8 % (0.0-8.0); MONOCYTE # 0.3 TH/MM3 (0-0.9); NEUT % 53.9 % (16.0-70.0); PLATELET COUNT 63 TH/MM3 (150-450); RED BLOOD COUNT 2.96 MIL/MM3 (4.50-5.90); WHITE BLOOD COUNT 3.5 TH/MM3 (4.0-11.0)
[2017-08-31 04:02] LABS: ALBUMIN 2.9 GM/DL (3.4-5.0); ALT (GPT) 103 U/L (12-78); AST (GOT) 98 U/L (15-37); BICARBONATE 26.9 MEQ/L (21.0-32.0); BLOOD UREA NITROGEN 7 MG/DL (7-18); CALCIUM 8.4 MG/DL (8.5-10.1); CHLORIDE 105 MEQ/L (98-107); CREATININE 0.84 MG/DL (0.60-1.30); GLOMERULAR FILTRATION RATE 95 ML/MIN (>89); GLUCOSE,RANDOM 85 MG/DL (74-106); SODIUM (NA) 140 MEQ/L (136-145)
[2017-08-31 04:04] LABS: ALKALINE PHOSPHATASE 392 U/L (45-117); TOTAL BILIRUBIN ADULT 0.4 MG/DL (0.2-1.0); TOTAL PROTEIN 6.6 GM/DL (6.4-8.2)
--- NOTE | 2017-08-31 07:12 | PD.ONC.PN ---
Subjective Subjective Remarks Late note entry. Patient seen at bedside at approximately 9 pm on 08/30/2017. He is s/p heart catheterization today. Objective Data Date Time Temp Pulse Resp B/P (MAP) Pulse Ox O2 Delivery O2 Flow Rate FiO2 08/31/17 03:00 73 08/31/17 03:00 98.4 74 16 90/70 (77) 95 08/30/17 23:00 98.4 74 16 113/70 (84) 99 08/30/17 23:00 61 08/30/17 19:00 97.7 71 16 109/57 (74) 95 08/30/17 19:00 73 08/30/17 18:02 79 08/30/17 17:00 80 08/30/17 16:54 19 08/30/17 16:00 81 08/30/17 15:00 76 08/30/17 15:00 88 20 122/71 (88) 96 08/30/17 14:00 65 106/60 (75) 100 08/30/17 14:00 61 08/30/17 13:20 97.8 69 19 119/67 (84) 99 08/30/17 13:20 69 08/30/17 11:40 99 Room Air 08/30/17 08:00 70 08/30/17 07:46 98.1 80 18 117/72 (87) 97 08/31/17 08/31/17 08/31/17 07:00 15:00 23:00 Intake Total 720 ml Output Total 580 ml Balance 140 ml Result Diagram: 08/31/17 0237 08/31/17 0237 Laboratory Results Laboratory Tests Test 08/30/17 08:06 08/30/17 14:55 08/31/17 02:37 White Blood Count 2.8 TH/MM3 3.5 TH/MM3 Red Blood Count 2.96 MIL/MM3 2.96 MIL/MM3 Hemoglobin 8.9 GM/DL 9.0 GM/DL Hematocrit 27.7 % 28.1 % Mean Corpuscular Volume 93.6 FL 94.8 FL Mean Corpuscular Hemoglobin 30.2 PG 30.3 PG Mean Corpuscular Hemoglobin Concent 32.3 % 32.0 % Red Cell Distribution Width 20.2 % 21.0 % Platelet Count 72 TH/MM3 63 TH/MM3 Mean Platelet Volume 8.4 FL 8.9 FL Blood Urea Nitrogen 8 MG/DL 7 MG/DL Creatinine 0.92 MG/DL 0.84 MG/DL Random Glucose 92 MG/DL 85 MG/DL Total Protein 7.0 GM/DL 6.6 GM/DL Albumin 3.1 GM/DL 2.9 GM/DL Calcium Level 8.5 MG/DL 8.4 MG/DL Alkaline Phosphatase 425 U/L 392 U/L Aspartate Amino Transf (AST/SGOT) 159 U/L 98 U/L Alanine Aminotransferase (ALT/SGPT) 128 U/L 103 U/L Gamma Glutamyl Transpeptidase 1362 U/L Total Bilirubin 0.5 MG/DL 0.4 MG/DL Direct Bilirubin 0.2 MG/DL Sodium Level 141 MEQ/L 140 MEQ/L Potassium Level 3.5 MEQ/L 3.8 MEQ/L Chloride Level 105 MEQ/L 105 MEQ/L Carbon Dioxide Level 29.0 MEQ/L 26.9 MEQ/L Anion Gap 7 MEQ/L 8 MEQ/L Estimat Glomerular Filtration Rate 85 ML/MIN 95 ML/MIN Indirect Bilirubin 0.3 MG/DL Total Creatine Kinase 150 U/L Neutrophils (%) (Auto) 53.9 % Lymphocytes (%) (Auto) 33.9 % Monocytes (%) (Auto) 9.8 % Eosinophils (%) (Auto) 1.7 % Basophils (%) (Auto) 0.7 % Neutrophils # (Auto) 1.9 TH/MM3 Lymphocytes # (Auto) 1.2 TH/MM3 Monocytes # (Auto) 0.3 TH/MM3 Eosinophils # (Auto) 0.1 TH/MM3 Basophils # (Auto) 0.0 TH/MM3 CBC Comment AUTO DIFF Differential Comment AUTO DIFF CONFIRMED Platelet Estimate LOW Platelet Morphology Comment NORMAL Hepatitis A IgM Antibody NONREACTIVE Hepatitis B Surface Antigen NONREACTIVE Hepatitis B Core IgM Antibody NONREACTIVE Hepatitis C IgG Antibody NONREACTIVE Administered Medications Medications (Trade) Dose Ordered Sig/Viky Route PRN Reason Start Time Stop Time Status Last Admin Dose Admin Sodium Chloride (NS Flush) 2 ml BID IV FLUSH 08/26/17 09:00 08/30/17 20:21 Gabapentin (Neurontin) 100 mg TID PO 08/26/17 09:00 08/30/17 17:07 Levetriacetam (Keppra) 1,000 mg BID PO 08/26/17 09:00 08/30/17 20:21 Lisinopril (Prinivil) 2.5 mg DAILY PO 08/26/17 09:00 08/30/17 09:08 Pravastatin Sodium (Pravachol) 20 mg DAILY PO 08/26/17 09:00 08/30/17 09:07 Lorazepam (Ativan) 1 mg Q4H PRN PO CIWA 8 - 10 08/26/17 10:00 08/26/17 21:43 Insulin Aspart (NovoLOG SUPPLEMENTAL SCALE) 1 ACHS SLIDING SCALE SQ 08/26/17 17:00 08/30/17 20:21 Clopidogrel Bisulfate (Plavix) 75 mg DAILY PO 08/27/17 18:00 08/30/17 09:08 Metoprolol Succinate (Toprol Xl) 25 mg DAILY PO 08/29/17 09:00 08/29/17 09:10 Morphine Sulfate (Msir) 15 mg Q4H PRN PO PAIN 1-10 08/30/17 13:45 08/30/17 23:48 Objective Remarks GENERAL: Well-nourished, well-developed patient. SKIN: Warm and dry. HEAD: Normocephalic. EYES: No scleral icterus. No injection or drainage. RESPIRATORY:No accessory muscle use. EXTREMITIES: No cyanosis, or edema. NEUROLOGICAL: No obvious focal deficit. Awake, alert, and oriented x3. PSYCHIATRIC: Appropriate mood and affect; insight and judgment normal. Assessment/Plan Assessment 57-year-old male with history of alcohol abuse admitted with chest pain found to have thrombocytopenia Plan 1. Thrombocytopenia: most likely contributing factor is alcohol abuse. Platelets are 72,000 after platelet transfusion. Continue to follow platelet count closely. Hematology service will continue to follow. 2. Chest pain: s/p heart catheterization by Dr. Patel. Marielle Jimenez MD Aug 31, 2017 07:12
[2017-08-31] MEDS: INSULIN ASPART SUPPLEMENTAL SCALE SQ SCH ×4 (07:48→20:16)
--- NOTE | 2017-08-31 08:42 | HHI.PR ---
Subjective Remarks Still complains of chest pain does not remember how he got the bruises. Patient is now with alcohol withdrawals at this time he is not getting Ativan. Plan for EGD today spoke with GI. No nausea or vomiting. No fever or chills. No abdominal pain. Objective Vitals Vital Signs Date Time Temp Pulse Resp B/P (MAP) Pulse Ox O2 Delivery O2 Flow Rate FiO2 08/31/17 03:00 73 08/31/17 03:00 98.4 74 16 90/70 (77) 95 08/30/17 23:00 98.4 74 16 113/70 (84) 99 08/30/17 23:00 61 08/30/17 19:00 97.7 71 16 109/57 (74) 95 08/30/17 19:00 73 08/30/17 18:02 79 08/30/17 17:00 80 08/30/17 16:54 19 08/30/17 16:00 81 08/30/17 15:00 76 08/30/17 15:00 88 20 122/71 (88) 96 08/30/17 14:00 65 106/60 (75) 100 08/30/17 14:00 61 08/30/17 13:20 97.8 69 19 119/67 (84) 99 08/30/17 13:20 69 08/30/17 11:40 99 Room Air I/O 08/30/17 08/30/17 08/30/17 08/31/17 08/31/17 08/31/17 07:00 15:00 23:00 07:00 15:00 23:00 Intake Total 334 ml 1340 ml 720 ml Output Total 300 ml 750 ml 580 ml Balance 334 ml -300 ml 590 ml 140 ml Intake Oral 840 ml 720 ml IV Total 500 ml Platelets 324 ml Blood Product IV Normal Saline Flush 10 ml Output Urine Total 300 ml 750 ml 580 ml # Voids 2 # Bowel Movements 0 Result Diagram: 08/31/177 08/31/17 [address] Angiography 08/30/17 0000 Signed Impressions: CONCLUSION: 1. Negative for central pulmonary emboli 2. Minimal new parenchymal changes adjacent to the fissure on the right 3. Moderate of systems changes apices bilaterally worse in the right. Ribs X-Ray 08/28/17 0000 Signed Impressions: CONCLUSION: 1. No acute fracture is identified. 2. There is stable changes related to osteonecrosis of the left humeral head. Chest X-Ray 08/26/17 0000 Signed Impressions: CONCLUSION: Chronic cardiac silhouette enlargement. Lungs are clear. Objective Remarks GENERAL: 57 yo male, in nad. SKIN: Warm and dry. HEAD: Atraumatic. Normocephalic. EYES: Pupils equal and round. No scleral icterus. No injection or drainage. ENT: No nasal bleeding or discharge. Mucous membranes pink and moist. NECK: Trachea midline. No JVD. CARDIOVASCULAR: Regular rate and rhythm. RESPIRATORY: No accessory muscle use. Clear to auscultation. Breath sounds equal bilaterally. GASTROINTESTINAL: Abdomen soft, non-tender, nondistended. Hepatic and splenic margins not palpable. MUSCULOSKELETAL: Extremities without clubbing, cyanosis, or edema. No obvious deformities. NEUROLOGICAL: Awake and alert. No obvious cranial nerve deficits. Motor grossly within normal limits. Five out of 5 muscle strength in the arms and legs. Normal speech. PSYCHIATRIC: Appropriate mood and affect; insight and judgment normal. A/P Problem List: (1) Paroxysmal atrial fibrillation ICD Code: I48.0 - Paroxysmal atrial fibrillation Status: Chronic (2) Hyponatremia ICD Code: E87.1 - Hyponatremia Status: Acute (3) Hypertension ICD Code: I10 - Essential (primary) hypertension (4) CAD (coronary artery disease) ICD Code: I25.10 - Atherosclerotic heart disease of [place] coronary artery without angina pectoris (5) COPD (chronic obstructive pulmonary disease) ICD Code: J44.9 - Chronic obstructive pulmonary disease, unspecified Status: Acute Assessment and Plan Intractable Chest pain -cath is clean today; patent stents from before, yet chest pain continues. will get CTA pending stable RF. Likely will need GI consult for EGD if CTA shows no obvious cause. to continue plavix per cards and xarelto as well (next resumption dose for xarelto is for tomorrow) Plan for EGD today. Worsening hepatitis GGT elevated, 2/2 ETOH and/or possible hepatitis viral syndrome and/or passive congestion (cath-based EF ~30%). Give small NS bolus, repeat CMP in AM, viral hepatitis profile ordered Hypertension Continue blood pressure medications and adjust as necessary. Paroxysmal atrial fibrillation. Likely exacerbated by chronic alcohol use Continue beta-bahman. At this time xarelto has been held for possible EGD in am Hyperlipidemia Continue home statin. Diabetes mellitus 2. Diabetic diet, insulin sliding scale. Chronic alcohol abuse [facility] protocol. History of seizure disorder. Continue Keppra. Thrombocytopenia. appreciate heme recs, suspect this is secondary to alcohol toxicity, improved after platelet pheresis, cbc in AM Chronic pain disorder. Patient has not picked up pain meds in several months. Due to substance use disorder, important to try to avoid narcotics if possible. AVOID IV MORPHINE in pt due to BP issues. Discharge Planning discharge on 08/31 if LFTs stabilize and if GI has no further work up planned. Cleared for discharge as well as EGD from cards standpoint; will need to stay on plavix at all times, may hold xarelto for procedures if desired. for afib, cards recommends xarelto Plan for EGD today If improves and cleared by GI can discharge later today. Laverne Jackson MD Aug 31, 2017 08:42
--- NOTE | 2017-08-31 08:51 | HHI.DS ---
Discharge Summary Admission Date Aug 29, 2017 at 13:51 Discharge Date: Aug 31, 2017 Admitting Diagnosis CP (1) Paroxysmal atrial fibrillation ICD Code: I48.0 - Paroxysmal atrial fibrillation Status: Chronic (2) Hyponatremia ICD Code: E87.1 - Hyponatremia Status: Acute (3) Hypertension ICD Code: I10 - Essential (primary) hypertension (4) CAD (coronary artery disease) ICD Code: I25.10 - Atherosclerotic heart disease of [place] coronary artery without angina pectoris (5) COPD (chronic obstructive pulmonary disease) ICD Code: J44.9 - Chronic obstructive pulmonary disease, unspecified Status: Acute Procedures EGD, cardiac cath Brief History - From Admission 57-year-old male with a history of chronic alcoholism, CAD, with CABG and stenting in the past, follows with Dr. Granda. patient presents with a 1 day history of constant, sharp left-sided chest pain radiating to left arm, left leg , back. Patient reports falling, with abrasion to left knee, bruises on his back. Patient reports chronic cough without changes. He does report some nausea but no vomiting. Patient denies being inebriated yesterday, however alcohol level in the 300s. CBC/BMP: 08/31/17 0237 08/31/17 0237 Significant Findings Laboratory Tests Test 08/29/17 06:45 08/29/17 17:30 08/30/17 08:06 08/30/17 14:55 White Blood Count 3.5 TH/MM3 (4.0-11.0) 3.7 TH/MM3 (4.0-11.0) 2.8 TH/MM3 (4.0-11.0) Red Blood Count 3.21 MIL/MM3 (4.50-5.90) 3.32 MIL/MM3 (4.50-5.90) 2.96 MIL/MM3 (4.50-5.90) Hemoglobin 9.7 GM/DL (13.0-17.0) 10.0 GM/DL (13.0-17.0) 8.9 GM/DL (13.0-17.0) Hematocrit 30.2 % (39.0-51.0) 31.3 % (39.0-51.0) 27.7 % (39.0-51.0) Red Cell Distribution Width 20.2 % (11.6-17.2) 20.5 % (11.6-17.2) 20.2 % (11.6-17.2) Platelet Count 20 TH/MM3 (150-450) 55 TH/MM3 (150-450) 72 TH/MM3 (150-450) Total Protein 6.3 GM/DL (6.4-8.2) Albumin 2.8 GM/DL (3.4-5.0) 3.1 GM/DL (3.4-5.0) Calcium Level 8.1 MG/DL (8.5-10.1) Alkaline Phosphatase 376 U/L (45-117) 425 U/L (45-117) Aspartate Amino Transf (AST/SGOT) 109 U/L (15-37) 159 U/L (15-37) Sodium Level 134 MEQ/L (136-145) Estimat Glomerular Filtration Rate 60 ML/MIN (>89) 85 ML/MIN (>89) Alanine Aminotransferase (ALT/SGPT) 128 U/L (12-78) Gamma Glutamyl Transpeptidase 1362 U/L (15-85) Test 08/31/17 02:37 White Blood Count 3.5 TH/MM3 (4.0-11.0) Red Blood Count 2.96 MIL/MM3 (4.50-5.90) Hemoglobin 9.0 GM/DL (13.0-17.0) Hematocrit 28.1 % (39.0-51.0) Red Cell Distribution Width 21.0 % (11.6-17.2) Platelet Count 63 TH/MM3 (150-450) Monocytes (%) (Auto) 9.8 % (0.0-8.0) Platelet Estimate LOW (NORMAL) Albumin 2.9 GM/DL (3.4-5.0) Calcium Level 8.4 MG/DL (8.5-10.1) Alkaline Phosphatase 392 U/L (45-117) Aspartate Amino Transf (AST/SGOT) 98 U/L (15-37) Alanine Aminotransferase (ALT/SGPT) 103 U/L (12-78) Imaging Last Impressions CT Angiography 08/30/17 0000 Signed Impressions: CONCLUSION: 1. Negative for central pulmonary emboli 2. Minimal new parenchymal changes adjacent to the fissure on the right 3. Moderate of systems changes apices bilaterally worse in the right. Ribs X-Ray 08/28/17 0000 Signed Impressions: CONCLUSION: 1. No acute fracture is identified. 2. There is stable changes related to osteonecrosis of the left humeral head. Chest X-Ray 08/26/17 0000 Signed Impressions: CONCLUSION: Chronic cardiac silhouette enlargement. Lungs are clear. PE at Discharge GENERAL: 57 yo male, in nad. SKIN: Warm and dry. HEAD: Atraumatic. Normocephalic. EYES: Pupils equal and round. No scleral icterus. No injection or drainage. ENT: No nasal bleeding or discharge. Mucous membranes pink and moist. NECK: Trachea midline. No JVD. CARDIOVASCULAR: Regular rate and rhythm. RESPIRATORY: No accessory muscle use. Clear to auscultation. Breath sounds equal bilaterally. GASTROINTESTINAL: Abdomen soft, non-tender, nondistended. Hepatic and splenic margins not palpable. MUSCULOSKELETAL: Extremities without clubbing, cyanosis, or edema. No obvious deformities. NEUROLOGICAL: Awake and alert. No obvious cranial nerve deficits. Motor grossly within normal limits. Five out of 5 muscle strength in the arms and legs. Normal speech. PSYCHIATRIC: Appropriate mood and affect; insight and judgment normal. Hospital Course Intractable Chest pain -cath is clean today; patent stents from before, yet chest pain continues. will get CTA pending stable RF. Likely will need GI consult for EGD if CTA shows no obvious cause. to continue plavix per cards and xarelto as well (next resumption dose for xarelto is for tomorrow) EGD 08/31 Worsening hepatitis GGT elevated, 2/2 ETOH and/or possible hepatitis viral syndrome and/or passive congestion (cath-based EF ~30%). Give small NS bolus, repeat CMP in AM, viral hepatitis profile ordered Hypertension Continue blood pressure medications and adjust as necessary. Paroxysmal atrial fibrillation. Likely exacerbated by chronic alcohol use Continue beta-bahman. At this time xarelto has been held for possible EGD in am Hyperlipidemia Continue home statin. Diabetes mellitus 2. Diabetic diet, insulin sliding scale. Chronic alcohol abuse [facility] protocol. History of seizure disorder. Continue Keppra. Thrombocytopenia. appreciate heme recs, suspect this is secondary to alcohol toxicity, improved after platelet pheresis, cbc in AM Chronic pain disorder. Patient has not picked up pain meds in several months. Due to substance use disorder, important to try to avoid narcotics if possible. AVOID IV MORPHINE in pt due to BP issues. Discharge Planning discharge on 08/31 if LFTs stabilize and if GI has no further work up planned. Cleared for discharge as well as EGD from cards standpoint; will need to stay on plavix at all times, may hold xarelto for procedures if desired. for afib, [facility] recommends xarelto EGD08/31/17 Patient improved. Discharged home in stable condition to follow-up with PCP and consultants as outpatient Pt Condition on Discharge: Stable Discharge Disposition: Discharge Home Discharge Time: > 30 minutes Discharge Instructions DIET: Follow Instructions for: Heart Healthy Diet, Low Sodium Diet Fluid Restrictions: 1800 Activities you can perform: Weight Bearing as [place] Follow up Referrals: Cardiology - 10 Days with Jonathan Beualieu MD PCP Follow-up - 1 Week New Medications: Atorvastatin (Atorvastatin) 40 Mg Tab 40 MG PO HS for Cholesterol Management, #30 TAB 0 Refills Pantoprazole (Pantoprazole) 40 Mg Tab 40 MG PO DAILY for Reflux, #30 TAB 0 Refills Tramadol (Tramadol) 50 Mg Tab 50 MG PO BID PRN for PAIN, #7 TAB 0 Refills Clopidogrel (Plavix) 75 Mg Tab 75 MG PO DAILY for stent maintenance, #30 TAB Metoprolol Succinate ER 24 HR (Metoprolol Succinate ER 24 HR) 25 Mg Tab 25 MG PO DAILY for afib, #30 TAB Continued Medications: Albuterol 18 GM Inh (Ventolin Hfa 18 GM Inh) 90 Mcg/Act Aer 2 PUFF INH Q4H PRN for SHORTNESS OF BREATH, #1 INHALER 0 Refills Gabapentin (Gabapentin) 100 Mg Cap 100 MG PO TID, #90 CAP 0 Refills Glipizide (Glipizide) 5 Mg Tab 5 MG PO DAILY for Blood Sugar Management, #30 TAB 0 Refills Take 30 minutes before a meal Levetiracetam (Levetiracetam) 1,000 Mg Tab 1000 MG PO BID for Control Seizures, #60 TAB 0 Refills Lisinopril (Lisinopril) 5 Mg Tab 2.5 MG PO DAILY for Blood Pressure Management, #30 TAB Morphine IR (Morphine IR) 15 Mg Tab 15 MG PO Q4H PRN for PAIN, #30 TAB 0 Refills Rivaroxaban (Xarelto) 20 Mg Tab 20 MG PO DAILY for Blood Clot Prevention, #30 TAB 0 Refills Discontinued Medications: Metoprolol Succinate ER 24 HR (Metoprolol Succinate ER 24 HR) 50 Mg Tab 50 MG PO DAILY, #30 TAB 0 Refills Simvastatin (Simvastatin) 10 Mg Tab 10 MG PO DAILY for Cholesterol Management, #30 TAB 0 Refills Laverne Jackson MD Aug 31, 2017 08:51
[2017-08-31] MEDS: levETIRAcetam 500 MG TAB PO SCH ×2 (08:58→20:15)
[2017-08-31] MEDS: LISINOPRIL 5 MG TAB PO SCH (08:58)
[2017-08-31] MEDS: METOPROLOL SUCCINATE 25 MG EXTENDED RELEASE TAB PO SCH (08:58)
[2017-08-31] MEDS: GABAPENTIN 100 MG CAP PO SCH ×3 (08:58→16:59)
[2017-08-31] MEDS: PANTOPRAZOLE SOD 40 MG DELAYED RELEASE TAB PO SCH (08:58)
[2017-08-31] MEDS: CLOPIDOGREL 75 MG TAB PO SCH (08:59)
[2017-08-31] MEDS: SODIUM CHLORIDE 0.9% FLUSH 10 ML FLUSH IV FLUSH SCH ×2 (08:59→20:16)
[2017-08-31] MEDS: PRAVASTATIN SOD 20 MG TAB PO SCH (08:59)
[2017-08-31] MEDS ORDERED: RIVAROXABAN 20 MG TAB PO SCH (09:00)
--- NOTE | 2017-08-31 09:17 | PD.CONS ---
HPI History of Present Illness This is a 57 year old M with PMH significant for CAD status post CABG, with stenting four months ago at [facility] in [place], hypertension, hyperlipidemia , DM, paroxysmal atrial fibrillation, seizure disorder, and chronic alcoholism who presented to the ER five days ago with complaints of chest pain that is located in his mid chest. Describes the pain as sharp, constant, sometimes he has intermittent pain that radiates down his left side into his arm. Also reports nausea and multiple episodes of emesis prior to arrival, no emesis since arrival. Denies any coffee ground emesis and hematemesis. Denies acid reflux, heartburn, abdominal pain, changes in bowel habits. Pt had a cardiac cath which revealed stent to be patent, pt has been cleared for EGD but unable to be taken off the Plavix at this time due to risk of reocclusion of recent stent. EGD and colonoscopy 08/2015 EGD was unremarkable and colonoscopy revealed hyperplastic polyps, diverticulosis, hemorrhoids. Reports ETOH couple times a week, drinks beer. Denies smoking and illicit drug use. Denies taking NSAIDs. (Deja Corral) PFSH Past Medical History CAD status post CABG, with stenting recently at [facility] in [place] Hypertension Hyperlipidemia Diabetes Paroxysmal atrial fibrillation Seizure disorder Chronic alcoholism Past Surgical History CABG Ablation Pacemaker placement Colonoscopy EGD (Deja Corral) Coded Allergies: cefazolin (Verified Allergy, Severe, Hives, 08/26/17) morphine (Verified Adverse Reaction, Intermediate, Nausea/Vomiting, ) Family History Mother at age 67 secondary to [place]. Father secondary to unknown cancer at age 56 Social History Patient smoked one half pack of cigarettes for the past 20 years. Patient drinks about 9 beers per day. He denies any alcohol withdrawal, however does has history of seizures. He denies any illicit drugs. (Deja Corral) Review of Systems Cardiovascular: COMPLAINS OF: Chest pain Gastrointestinal: COMPLAINS OF: Nausea, Vomiting, DENIES: Abdominal pain, Black stools, Bloody stools, Constipation, Diarrhea, Difficulty Swallowing, Odynophagia, Swelling of Abdomen, Heartburn, Hematemesis (Deja Corral) GI Exam Vitals I&O Vital Signs Date Time Temp Pulse Resp B/P (MAP) Pulse Ox O2 Delivery O2 Flow Rate FiO2 08/31/17 03:00 73 08/31/17 03:00 98.4 74 16 90/70 (77) 95 08/30/17 23:00 98.4 74 16 113/70 (84) 99 08/30/17 23:00 61 08/30/17 19:00 97.7 71 16 109/57 (74) 95 08/30/17 19:00 73 08/30/17 18:02 79 08/30/17 17:00 80 08/30/17 16:54 19 08/30/17 16:00 81 08/30/17 15:00 76 08/30/17 15:00 88 20 122/71 (88) 96 08/30/17 14:00 65 106/60 (75) 100 08/30/17 14:00 61 08/30/17 13:20 97.8 69 19 119/67 (84) 99 08/30/17 13:20 69 08/30/17 11:40 99 Room Air I/O 08/30/17 08/30/17 08/30/17 08/31/17 08/31/17 08/31/17 07:00 15:00 23:00 07:00 15:00 23:00 Intake Total 334 ml 1340 ml 720 ml Output Total 300 ml 750 ml 580 ml Balance 334 ml -300 ml 590 ml 140 ml Intake Oral 840 ml 720 ml IV Total 500 ml Platelets 324 ml Blood Product IV Normal Saline Flush 10 ml Output Urine Total 300 ml 750 ml 580 ml # Voids 2 # Bowel Movements [address] Angiography 08/30/17 0000 Signed Impressions: CONCLUSION: 1. Negative for central pulmonary emboli 2. Minimal new parenchymal changes adjacent to the fissure on the right 3. Moderate of systems changes apices bilaterally worse in the right. Ribs X-Ray 08/28/17 0000 Signed Impressions: CONCLUSION: 1. No acute fracture is identified. 2. There is stable changes related to osteonecrosis of the left humeral head. Chest X-Ray 08/26/17 0000 Signed Impressions: CONCLUSION: Chronic cardiac silhouette enlargement. Lungs are clear. Laboratory Test 08/30/17 14:55 08/31/17 02:37 Blood Urea Nitrogen 8 MG/DL 7 MG/DL Creatinine 0.92 MG/DL 0.84 MG/DL Random Glucose 92 MG/DL 85 MG/DL Total Protein 7.0 GM/DL 6.6 GM/DL Albumin 3.1 GM/DL 2.9 GM/DL Calcium Level 8.5 MG/DL 8.4 MG/DL Alkaline Phosphatase 425 U/L 392 U/L Aspartate Amino Transf (AST/SGOT) 159 U/L 98 U/L Alanine Aminotransferase (ALT/SGPT) 128 U/L 103 U/L Gamma Glutamyl Transpeptidase 1362 U/L Total Bilirubin 0.5 MG/DL 0.4 MG/DL Direct Bilirubin 0.2 MG/DL Sodium Level 141 MEQ/L 140 MEQ/L Potassium Level 3.5 MEQ/L 3.8 MEQ/L Chloride Level 105 MEQ/L 105 MEQ/L Carbon Dioxide Level 29.0 MEQ/L 26.9 MEQ/L Anion Gap 7 MEQ/L 8 MEQ/L Estimat Glomerular Filtration Rate 85 ML/MIN 95 ML/MIN Indirect Bilirubin 0.3 MG/DL Total Creatine Kinase 150 U/L White Blood Count 3.5 TH/MM3 Red Blood Count 2.96 MIL/MM3 Hemoglobin 9.0 GM/DL Hematocrit 28.1 % Mean Corpuscular Volume 94.8 FL Mean Corpuscular Hemoglobin 30.3 PG Mean Corpuscular Hemoglobin Concent 32.0 % Red Cell Distribution Width 21.0 % Platelet Count 63 TH/MM3 Mean Platelet Volume 8.9 FL Neutrophils (%) (Auto) 53.9 % Lymphocytes (%) (Auto) 33.9 % Monocytes (%) (Auto) 9.8 % Eosinophils (%) (Auto) 1.7 % Basophils (%) (Auto) 0.7 % Neutrophils # (Auto) 1.9 TH/MM3 Lymphocytes # (Auto) 1.2 TH/MM3 Monocytes # (Auto) 0.3 TH/MM3 Eosinophils # (Auto) 0.1 TH/MM3 Basophils # (Auto) 0.0 TH/MM3 CBC Comment AUTO DIFF Differential Comment AUTO DIFF CONFIRMED Platelet Estimate LOW Platelet Morphology Comment NORMAL Hepatitis A IgM Antibody NONREACTIVE Hepatitis B Surface Antigen NONREACTIVE Hepatitis B Core IgM Antibody NONREACTIVE Hepatitis C IgG Antibody NONREACTIVE Physical Examination HEENT: Normocephalic; atraumatic CHEST: Even/unlabored CARDIAC: RRR (+) murmur ABDOMEN: Soft, nondistended, nontender; bowel sounds active EXTREMITIES: No clubbing, cyanosis, or edema. SKIN: Normal; no rash; no jaundice. 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 (Deja Corral) Assessment and Plan Plan Assessment: - Chest pain began two days prior to admission, states constant, described as sharp, radiates down his left side and into his arm. S/P cardiac cath which shows recent stent placed approximately 4 months ago to be patent. Pt currently on Plavix. Xarelto is on hold. Also reports nausea and multiple episodes of emesis prior to arrival, no emesis since admission. Denies coffee ground emesis and hematemesis. Denies acid reflux, heartburn, abdominal pain. Last EGD and colonoscopy in 2016 --> EGD was unremarkable and colonoscopy revealed hyperplastic polyps, diverticulosis, hemorrhoids. Pt reports drinking a few times a week, according to admission notes has been drinking nine beers a day. Denies taking NSAIDs. Plan: EGD today Obtain consent Keep NPO OK to keep on Plavix Xarelto on hold Further recommendations based on clinical course and results of above Pt has been seen and examined by myself and Dr. Jo and this note is written on his behalf (Deja Corral) Physician Comments Seen and examined with [facility], Chest pain of unclear etiology. Cleared by cardiology for egd today. Further recs to follow. Thank you (Jaylyn Jo MD) Deja Corral Aug 31, 2017 09:17 Jaylyn Jo MD Aug 31, 2017 17:18
[2017-08-31] MEDS ORDERED: PANT40TA3 PO (10:51)
[2017-08-31] MEDS ORDERED: TRAM50TA PO (10:51)
[2017-08-31] MEDS ORDERED: traMADol HCL 50 MG TAB PO PRN (11:00)
[2017-08-31] MEDS ORDERED: PHENYLEPH/NS 1000 MCG/10 ML SYR IV ONE (12:00)
[2017-08-31] MEDS ORDERED: PROPOFOL 200 MG/20 ML AMP IV ONE (12:00)
[2017-08-31] MEDS ORDERED: ePHEDrine/NS 25 MG/5 ML SYRINGE IV ONE (12:00)
[2017-08-31] MEDS ORDERED: STERILE WATER FOR INJECTION 20 ML VIAL IV ONE (12:00)
[2017-08-31] MEDS: LORazepam 1 MG TAB PO PRN (17:01)
[2017-08-31] MEDS: MORPHINE SULFATE 15 MG TAB PO PRN (20:15)
[2017-09-01] VITALS (8 sets, daily range): BP systolic 90–109; BP diastolic 50–65; PULSE 62–89; RESP 14–17; TEMP 98.6; O2SAT 97
[2017-09-01] MEDS: MORPHINE SULFATE 15 MG TAB PO PRN ×2 (00:26→04:15)
[2017-09-01] MEDS: INSULIN ASPART SUPPLEMENTAL SCALE SQ SCH (08:00)
[2017-09-01] MEDS: PRAVASTATIN SOD 20 MG TAB PO SCH (08:06)
[2017-09-01] MEDS: levETIRAcetam 500 MG TAB PO SCH (08:06)
[2017-09-01] MEDS: LISINOPRIL 5 MG TAB PO SCH (08:06)
[2017-09-01] MEDS: GABAPENTIN 100 MG CAP PO SCH (08:06)
[2017-09-01] MEDS: PANTOPRAZOLE SOD 40 MG DELAYED RELEASE TAB PO SCH (08:06)
[2017-09-01] MEDS: CLOPIDOGREL 75 MG TAB PO SCH (08:06)
[2017-09-01] MEDS: METOPROLOL SUCCINATE 25 MG EXTENDED RELEASE TAB PO SCH (08:07)
[2017-09-01] MEDS: SODIUM CHLORIDE 0.9% FLUSH 10 ML FLUSH IV FLUSH SCH (08:08)
[2017-09-01 11:12] LABS: ALBUMIN 3.1 GM/DL (3.4-5.0); BICARBONATE 26.8 MEQ/L (21.0-32.0); BLOOD UREA NITROGEN 6 MG/DL (7-18); CALCIUM 9.1 MG/DL (8.5-10.1); CHLORIDE 103 MEQ/L (98-107); CREATININE 0.95 MG/DL (0.60-1.30); GLOMERULAR FILTRATION RATE 82 ML/MIN (>89); GLUCOSE,RANDOM 105 MG/DL (74-106); SODIUM (NA) 139 MEQ/L (136-145)
[2017-09-01 11:13] LABS: ALT (GPT) 79 U/L (12-78); AST (GOT) 53 U/L (15-37)
[2017-09-01 11:16] LABS: ALKALINE PHOSPHATASE 358 U/L (45-117); TOTAL BILIRUBIN ADULT 0.5 MG/DL (0.2-1.0); TOTAL PROTEIN 7.2 GM/DL (6.4-8.2)
--- NOTE | 2017-09-01 11:33 | HHI.GIFU ---
Subjective Remarks Pt brushing his teeth States he is going home today Still complaining of some chest pain Some nausea this morning, better after medication Denies abdominal pain Tolerating PO (Deja Corral) Objective Vitals I&O Vital Signs Date Time Temp Pulse Resp B/P (MAP) Pulse Ox O2 Delivery O2 Flow Rate FiO2 09/01/17 11:00 65 09/01/17 10:00 62 09/01/17 09:00 89 09/01/17 08:03 91/53 (66) 09/01/17 08:01 68 09/01/17 07:15 66 17 90/50 (63) 97 09/01/17 07:00 64 09/01/17 03:00 98.6 80 14 109/65 (80) 97 09/01/17 03:00 73 08/31/17 23:00 85 14 105/60 (75) 98 08/31/17 23:00 73 08/31/17 19:00 82 08/31/17 19:00 98.2 79 16 122/67 (85) 99 08/31/17 18:00 68 08/31/17 17:00 72 08/31/17 16:37 97.4 82 18 123/73 (90) 100 08/31/17 13:00 62 08/31/17 12:00 60 I/O 08/31/17 08/31/17 08/31/17 09/01/17 09/01/17 09/01/17 07:00 15:00 23:00 07:00 15:00 23:00 Intake Total 720 ml 920 ml 940 ml Output Total 580 ml 750 ml 380 ml Balance 140 ml 170 ml 560 ml Intake Oral 720 ml 720 ml 940 ml Other 200 ml Output Urine Total 580 ml 750 ml 380 ml # Voids 2 2 # Bowel Movements 0 0 Laboratory Laboratory Tests Test 09/01/17 10:28 Blood Urea Nitrogen 6 Creatinine 0.95 Random Glucose 105 Total Protein 7.2 Albumin 3.1 Calcium Level 9.1 Alkaline Phosphatase 358 Aspartate Amino Transf (AST/SGOT) 53 Alanine Aminotransferase (ALT/SGPT) 79 Total Bilirubin 0.5 Sodium Level 139 Potassium Level 3.9 Chloride Level 103 Carbon Dioxide Level 26.8 Anion Gap 9 Estimat Glomerular Filtration Rate [address] Angiography 08/30/17 0000 Signed Impressions: CONCLUSION: 1. Negative for central pulmonary emboli 2. Minimal new parenchymal changes adjacent to the fissure on the right 3. Moderate of systems changes apices bilaterally worse in the right. Ribs X-Ray 08/28/17 0000 Signed Impressions: CONCLUSION: 1. No acute fracture is identified. 2. There is stable changes related to osteonecrosis of the left humeral head. Chest X-Ray 08/26/17 0000 Signed Impressions: CONCLUSION: Chronic cardiac silhouette enlargement. Lungs are clear. Physical Exam HEENT: Normocephalic; atraumatic CHEST: Even/unlabored CARDIAC: RRR ABDOMEN: Soft, nondistended, nontender; bowel sounds active EXTREMITIES: No clubbing, cyanosis, or edema. SKIN: Normal; no rash; no jaundice. DOME[employer] F[employer] FORWARDER: Alert and oriented times three. (Deja Corral) Assessment and Plan Plan Assessment: - Chest pain began two days prior to admission, states constant, described as sharp, radiates down his left side and into his arm. S/P cardiac cath which shows recent stent placed approximately 4 months ago to be patent. Pt currently on Plavix. Xarelto is on hold. Also reports nausea and multiple episodes of emesis prior to arrival, no emesis since admission. Denies coffee ground emesis and hematemesis. Denies acid reflux, heartburn, abdominal pain. Last EGD and colonoscopy in 2016 --> EGD was unremarkable and colonoscopy revealed hyperplastic polyps, diverticulosis, hemorrhoids. Pt reports drinking a few times a week, according to admission notes has been drinking nine beers a day. Denies taking NSAIDs. (09/01) S/P EGD yesterday. He is being discharged today. Still having some chest pain. Some nausea this morning but relieved after medication. Denies abdominal pain EGD --> Esophagitis. Gastritis. Hiatal hernia Plan: Protonix Avoid NSAIDs Follow up with GI after DC Pt has been seen and examined by myself and Dr. Ash and this note is written on her behalf (Deja Corral) Physician Comments agree with above (Brooke Ash MD) Deja Corral Sep 01, 2017 11:33 Brooke Ash MD Sep 01, 2017 17:06
== END 2017-09-01 11:40 | disposition home or self-care (01) | DRG 287 ==
LOC: NEPE 00:25 → NEDA 05:59 → NEPGCP 08:05 → NEPHCDU 08-27 17:24 → OBSVTOIN 08-29 13:51 → HCIS 08-30 10:04 → HCPC 08-30 13:13
PROVIDERS: ADMIT Hospitalist; ATTEND Hospitalist
PROC: 30233R1 Transfusion of Nonautologous Platelets into Peripheral Vein, Percutaneous Approach (ICD-10-PCS; 2017-08-29)
PROC: B2151ZZ Fluoroscopy of Left Heart using Low Osmolar Contrast (ICD-10-PCS; 2017-08-30)
PROC: B2111ZZ Fluoroscopy of Multiple Coronary Arteries using Low Osmolar Contrast (ICD-10-PCS; 2017-08-30)
PROC: B2131ZZ Fluoroscopy of Multiple Coronary Artery Bypass Grafts using Low Osmolar Contrast (ICD-10-PCS; 2017-08-30)
PROC: 4A023N7 Measurement of Cardiac Sampling and Pressure, Left Heart, Percutaneous Approach (ICD-10-PCS; principal; 2017-08-30 08:45)
PROC: 0DJ08ZZ Inspection of Upper Intestinal Tract, Via Natural or Artificial Opening Endoscopic (ICD-10-PCS; 2017-08-31)
DX: R07.2 Precordial pain (principal); D69.59 Other secondary thrombocytopenia; K76.6 Portal hypertension; E87.1 Hypo-osmolality and hyponatremia; I11.0 Hypertensive heart disease with heart failure; I50.22 Chronic systolic (congestive) heart failure; I48.0 Paroxysmal atrial fibrillation; G40.909 Epilepsy, unspecified, not intractable, without status epilepticus; F11.20 Opioid dependence, uncomplicated; F10.239 Alcohol dependence with withdrawal, unspecified; R16.1 Splenomegaly, not elsewhere classified; I25.10 Atherosclerotic heart disease of native coronary artery without angina pectoris; K20.9 Esophagitis, unspecified; J44.9 Chronic obstructive pulmonary disease, unspecified; K70.10 Alcoholic hepatitis without ascites; E11.9 Type 2 diabetes mellitus without complications; E78.5 Hyperlipidemia, unspecified; I25.2 Old myocardial infarction; I25.5 Ischemic cardiomyopathy; I34.0 Nonrheumatic mitral (valve) insufficiency; K29.70 Gastritis, unspecified, without bleeding; K44.9 Diaphragmatic hernia without obstruction or gangrene; S80.212A Abrasion, left knee, initial encounter; S20.229A Contusion of unspecified back wall of thorax, initial encounter; F17.210 Nicotine dependence, cigarettes, uncomplicated; Y90.8 Blood alcohol level of 240 mg/100 ml or more; W19.XXXA Unspecified fall, initial encounter; Z79.01 Long term (current) use of anticoagulants; Z79.4 Long term (current) use of insulin; Z88.1 Allergy status to other antibiotic agents; Z91.14 Patient's other noncompliance with medication regimen; Z91.19 Patient's noncompliance with other medical treatment and regimen; Z95.0 Presence of cardiac pacemaker; Z95.2 Presence of prosthetic heart valve; Z95.1 Presence of aortocoronary bypass graft; Z95.5 Presence of coronary angioplasty implant and graft; Z76.5 Malingerer [conscious simulation]
CPT/HCPCS: 36430; 71045; 71110; 71275; 80048; 80053; 80069; 80074; 80076; 80307; 82550; 82552; 82948; 82977; 83690; 83735; 84484; 85025; 85027; 85384; 85610; 85730; 93005; 93458; 99152; C1760; C1769; C1893; G0269; J1644; J1815; J2250; J2270; J2370; J3010; J7030; J7040; J7050; P9035; Q9967

== ENCOUNTER 2017-09-02 04:33 | Emergency (ER) | payer MEDICARE, MEDICAID ==
[~2017-09-02] VITALS: Ht 177.8 cm; Wt 95.0 kg
[~2017-09-02 04:33] MED LIST changes: +ATOR40TA16 PO; +METO1TAB42 PO; -METO1TAB9 PO; +PANT40TA3 PO; +PLAV75TA29 PO; -SIMV10TA PO; +TRAM50TA PO
[2017-09-02 04:36] VITALS: BP 125/69; PULSE 98; RESP 20; O2SAT 100
[2017-09-02] MEDS ORDERED: SODIUM CHLOR 0.9% 1000 ML INJ 1,000 ML IV ONE (04:36)
[2017-09-02 04:40] VITALS: BP 125/69; PULSE 98; RESP 20; O2SAT 100
[2017-09-02] MEDS ORDERED: SODIUM CHLORIDE 0.9% FLUSH 10 ML FLUSH IVF PRN (04:45)
--- NOTE | 2017-09-02 04:53 | PD ---
HPI Chief Complaint: Syncope/Near-Syncope Time Seen by Provider: 04:36 Travel History International Travel<30 days: No Contact w/Intl Traveler<30days: No Traveled to known affect area: No History of Present Illness HPI Per patient he just remembers heading over to his friend's house and next thing he remembers he was in the ambulance. He is unsure if he had a seizure or perhaps is AICD fired. However when asked the patient denies having any chest pain, or any chest soreness. Patient states that he is on Keppra. And denies having any headache, visual changes, nausea, vomiting, diarrhea, chest pain, back pain, abdominal pain, dysuria/hematuria/frequency/. States allergy to cefazolin and morphine Past medical history significant for corrective lenses, epileptic seizures since 2001, triple bypass CABG, congestive heart failure, pacemaker defibrillator, coronary stent, AICD by Dr. Soler, AAA repair, hypercholesterolemia, atrial fibrillation, hypertension, COPD, PFSH Past Medical History Hx Anticoagulant Therapy: Yes Arthritis: No Asthma: No Atrial Fibrillation: Yes Autoimmune Disease: No Blood Disorders: No Anxiety: No Depression: No Heart Rhythm Problems: Yes (a- fib) Cancer: No Cardiac Catheterization: Yes (X5) Cardiovascular Problems: Yes (TRIPLE BYPASS) High Cholesterol: Yes Chemotherapy: No Chest Pain: Yes Congestive Heart Failure: Yes COPD: Yes Cerebrovascular Accident: No Diabetes: No Diminished Hearing: No Endocrine: No Gastrointestinal Disorders: Yes GERD: No Glaucoma: No Genitourinary: No Headaches: Yes Hepatitis: No Hiatal Hernia: No Hypertension: Yes Immune Disorder: No Implanted Vascular Access Dvce: Yes Kidney Stones: No Musculoskeletal: No Neurologic: Yes Psychiatric: No Reproductive: No Respiratory: Yes (COPD) Migraines: No Myocardial Infarction: Yes Radiation Therapy: No Renal Failure: No Seizures: Yes (EPILEPSY 2001) Sickle Cell Disease: No Sleep Apnea: No Thyroid Disease: No Ulcer: No PNEUMOCCOCAL Vaccine (Year): 2 Past Surgical History Abdominal Aneurysm Repair: Yes (1995) Abdominal Surgery: No AICD: Yes (01/20 [facility] [id number], [id number], removed) Appendectomy: No Arteriovenous Shunt: No Body Medical Devices: PACER Cardiac Surgery: Yes (CABG X 3 VESSEL IN , pacer, ablation) Cholecystectomy: No Coronary Artery Bypass Graft: Yes Coronary Stent: Yes Ear Surgery: No Endocrine Surgery: No Eye Surgery: No Genitourinary Surgery: No Gynecologic Surgery: No Insulin Pump: No Oral Surgery: No Pacemaker: Yes (AICD VIA DR GREGORIO) Thoracic Surgery: No Social History Alcohol Use: Yes (12-pack daily) Tobacco Use: Yes (1 PPD) Substance Use: No Allergies-Medications (Allergen,Severity, Reaction): Coded Allergies: cefazolin (Verified Allergy, Severe, Hives, 08/26/17) morphine (Verified Adverse Reaction, Intermediate, Nausea/Vomiting, ) Reported Meds & Prescriptions Reported Meds & Active Scripts Active Pantoprazole (Pantoprazole Sodium) 40 Mg Tab 40 Mg PO DAILY Tramadol (Tramadol HCl) 50 Mg Tab 50 Mg PO BID PRN Atorvastatin (Atorvastatin Calcium) 40 Mg Tab 40 Mg PO HS Metoprolol Succinate ER 24 HR (Metoprolol Succinate) 25 Mg Tab 25 Mg PO DAILY Plavix (Clopidogrel Bisulfate) 75 Mg Tab 75 Mg PO DAILY Glipizide 5 Mg Tab 5 Mg PO DAILY Take 30 minutes before a meal Lisinopril 5 Mg Tab 2.5 Mg PO DAILY Morphine IR (Morphine Sulfate) 15 Mg Tab 15 Mg PO Q4H PRN Ventolin Hfa 18 GM Inh (Albuterol Sulfate) 90 Mcg/Act Aer 2 Puff INH Q4H PRN Xarelto (Rivaroxaban) 20 Mg Tab 20 Mg PO DAILY Blood Glucose System Donny (Blood Glucose Monitoring Suppl) 1 Kit Kit Kit Reported Gabapentin 100 Mg Cap 100 Mg PO TID Levetiracetam 1,000 Mg Tab 1,000 Mg PO BID Review of Systems General / Constitutional: No: Fever Eyes: No: Visual changes HENT: No: Headaches Cardiovascular: No: Chest Pain or Discomfort Respiratory: No: Shortness of Breath Gastrointestinal: No: Abdominal Pain Genitourinary: No: Dysuria Musculoskeletal: No: Pain Skin: No Rash Neurologic: Positive: Seizures Psychiatric: No: Depression Endocrine: No: Polydipsia Hematologic/Lymphatic: No: Easy Bruising Physical Exam Narrative GENERAL: SKIN: Warm and dry. HEAD: Atraumatic. Normocephalic. EYES: Pupils equal and round. No scleral icterus. No injection or drainage. ENT: No nasal bleeding or discharge. Mucous membranes pink and moist. NECK: Trachea midline. No JVD. CARDIOVASCULAR: Regular rate and rhythm. RESPIRATORY: No accessory muscle use. Clear to auscultation. Breath sounds equal bilaterally. GASTROINTESTINAL: Abdomen soft, non-tender, nondistended. MUSCULOSKELETAL: Extremities without clubbing, cyanosis, or edema. No obvious deformities. Abrasion to left knee without obvious deformity NEUROLOGICAL: Awake and alert. No obvious cranial nerve deficits. Motor grossly within normal limits. Five out of 5 muscle strength in the arms and legs. Normal speech. PSYCHIATRIC: Appropriate mood and affect; insight and judgment normal. Data Data Last Documented VS Vital Signs Date Time Temp Pulse Resp B/P (MAP) Pulse Ox O2 Delivery O2 Flow Rate FiO2 09/02/17 04:40 99 Room Air 09/02/17 04:40 98 20 125/69 (87) Orders Orders Electrocardiogram (09/02/17 04:36) Complete Blood Count With Diff (09/02/17 04:36) Comprehensive Metabolic Panel (09/02/17 04:36) B-Type Natriuretic Peptide (09/02/17 04:36) Ckmb (Isoenzyme) Profile (09/02/17 04:36) Troponin I (09/02/17 04:36) Act Partial Throm Time (Ptt) (09/02/17 04:36) Prothrombin Time / Inr (Pt) (09/02/17 04:36) Urinalysis - C+S If Indicated (09/02/17 04:36) Chest, Single Ap (09/02/17 04:36) Ct Brain W/O Iv Contrast(Rout) (09/02/17 04:36) Blood Glucose (09/02/17 04:36) Ecg Monitoring (09/02/17 04:36) Iv Access Insert/Monitor (09/02/17 04:36) Oximetry (09/02/17 04:36) Sodium Chloride 0.9% Flush (Ns Flush) (09/02/17 04:45) Sodium Chlor 0.9% 1000 Ml Inj (Ns 1000 M (09/02/17 04:36) Drug Screen, Random Urine (09/02/17 04:36) Alcohol (Ethanol) (09/02/17 04:36) Salicylates (Aspirin) (09/02/17 04:36) Tylenol (Acetaminophen) (09/02/17 04:36) Ondansetron Odt (Zofran Odt) (09/02/17 05:15) Levetiracetam (09/02/17 05:29) CKMB (09/02/17 04:45) CKMB% (09/02/17 04:45) Ed Discharge Order (09/02/17 06:55) Labs Laboratory Tests Test 09/02/17 04:45 White Blood Count 4.5 TH/MM3 Red Blood Count 3.88 MIL/MM3 Hemoglobin 11.8 GM/DL Hematocrit 36.5 % Mean Corpuscular Volume 94.1 FL Mean Corpuscular Hemoglobin 30.5 PG Mean Corpuscular Hemoglobin Concent 32.4 % Red Cell Distribution Width 21.4 % Platelet Count 91 TH/MM3 Mean Platelet Volume 10.0 FL Neutrophils (%) (Auto) 60.4 % Lymphocytes (%) (Auto) 26.0 % Monocytes (%) (Auto) 11.2 % Eosinophils (%) (Auto) 1.3 % Basophils (%) (Auto) 1.1 % Neutrophils # (Auto) 2.7 TH/MM3 Lymphocytes # (Auto) 1.2 TH/MM3 Monocytes # (Auto) 0.5 TH/MM3 Eosinophils # (Auto) 0.1 TH/MM3 Basophils # (Auto) 0.0 TH/MM3 CBC Comment AUTO DIFF Differential Comment AUTO DIFF CONFIRMED Platelet Estimate LOW Platelet Morphology Comment ENLARGED Ovalocytes 1+ Prothrombin Time 9.9 SEC Prothromb Time International Ratio 1.0 RATIO Activated Partial Thromboplast Time 26.5 SEC Blood Urea Nitrogen 4 MG/DL Creatinine 1.05 MG/DL Random Glucose 110 MG/DL Total Protein 8.7 GM/DL Albumin 3.7 GM/DL Calcium Level 9.9 MG/DL Alkaline Phosphatase 423 U/L Aspartate Amino Transf (AST/SGOT) 61 U/L Alanine Aminotransferase (ALT/SGPT) 81 U/L Total Bilirubin 1.1 MG/DL Sodium Level 129 MEQ/L Potassium Level 3.7 MEQ/L Chloride Level 94 MEQ/L Carbon Dioxide Level 23.7 MEQ/L Anion Gap 11 MEQ/L Estimat Glomerular Filtration Rate 73 ML/MIN Total Creatine Kinase 274 U/L Creatine Kinase MB 9.9 NG/ML Troponin I LESS THAN 0.02 NG/ML B-Type Natriuretic Peptide 145 PG/ML Salicylates Level 3.3 MG/DL Acetaminophen Level LESS THAN 2.0 MCG/ML Ethyl Alcohol Level LESS THAN 3 MG/DL MDM Medical Decision Making Medical Screen Exam Complete: Yes Emergency Medical Condition: Yes Medical Record Reviewed: Yes Interpretation(s) EKG shows a normal sinus rhythm 88, left atrial enlargement, nonspecific ST-T wave changes but no evidence of any ST elevation or depressions Differential Diagnosis Seizure versus syncope versus intracranial hemorrhage versus anemia versus dehydration versus electrolyte abnormalities Narrative Course CBC shows no leukocytosis, no left shift, mild anemia with 11.8/36.5, mild trouble cytopenia with a 91,000 count Coagulation profile is within normal limits Chest x-ray shows sclerosis of left femoral head likely old avascular necrosis lungs are clear CT head read by radiologist as negative CT head noncontrast Mild hyponatremia, normal kidney function, slightly elevated liver enzymes with 1 ALT of 81 also slightly elevated alkaline phosphatase of 423 and mild elevation of total bilirubin 1.1. CK-MB elevated at 9.9 troponin is negative at less than 0.02 Patient case was discussed with SHARMAINE Sharif, apparently the patient was just discharged from the hospital about a day or so ago. Per her chart review and recollection EKG is actually better today because it did not show any evidence of atrial fibrillation, the CK-MB percent is only 3% and is not elevated according to her calculations. Additionally troponin has remained negative. And there has been no significant change in his LFTs are alk phos or bilirubin which are all believed to be secondary to alcoholic liver disease. So in short patient is not a candidate for admission Diagnosis Primary Impression: SEIZURE Patient Instructions: General Instructions, Generalized Tonic Clonic Seizures ( ED) Disposition: 01 DISCHARGE HOME Condition: Stable Shaun Moffett MD Sep 02, 2017 04:53
--- NOTE | 2017-09-02 05:06 | RADRPT ---
EXAM DATE: 09/02/2017 4:53 AM EDT AGE/SEX: 57 years / Male INDICATIONS: Syncope. CLINICAL DATA: This is the patient's initial encounter. Patient reports that signs and symptoms have been present for 1 day and indicates a pain score of 0/10. MEDICAL/SURGICAL HISTORY: Congestive heart failure. Hypertension. ETOH Abuse. CABG. Pacemaker. RADIATION DOSE: 56.35 CTDI (mGy) COMPARISON: [facility] – [place], CT BRAIN W/O CONTRAST, 12/09/2015. . TECHNIQUE: CT of the head without contrast. Using automated exposure control and adjustment of the mA and/or kV according to patient size, radiation dose was kept as low as reasonably achievable to ob tain optimal diagnostic quality images. DICOM format image data is available electronically for revi ew and comparison. FINDINGS: Cerebrum: The ventricles are normal for age. No evidence of midline shift, mass lesion, hemorrhage or acute infarction. No extraaxial fluid collections are seen. Posterior Fossa: The cerebellum and brainstem are intact. The 4th ventricle is midline. The cerebe llopontine angle is unremarkable. Extracranial: The visualized portion of the orbits is intact. Skull: The calvaria is intact. No evidence of skull fracture. CONCLUSION: 1. Negative CT Head non contrast. Electronically signed by: Jeff Turcios MD 09/02/2017 5:04 AM EDT
--- NOTE | 2017-09-02 05:11 | RADRPT ---
EXAM DATE: 09/02/2017 5:05 AM EDT AGE/SEX: 57 years / Male INDICATIONS: Syncopal episode. CLINICAL DATA: This is the patient's initial encounter. Patient reports that signs and symptoms have been present for 1 day and indicates a pain score of 0/10. MEDICAL/SURGICAL HISTORY: Diabetes mellitus type II. Hypertension. Chronic obstructive pulmon francisco disease. Seizures Pacemaker. CABG. COMPARISON: [facility] – [place], CHEST SINGLE AP, 08/26/2017. . FINDINGS: A single AP view of the chest demonstrates the lungs to be symmetrically aerated without evidence of mass, infiltrate or effusion. The cardiomediastinal contours are unremarkable. Osseous structures a re intact. Clips and wires suggests CABG. Right subclavian pacer in good position. CONCLUSION: Sclerosis left femoral head likely old avascular necrosis. Lungs are clear. Electronically signed by: Jeff Turcios MD 09/02/2017 5:10 AM EDT
[2017-09-02] MEDS ORDERED: ONDANSETRON ODT 4 MG TAB PO ONE (05:15)
[2017-09-02 05:20] LABS: PROTHROMBIN TIME - PATIENT 9.9 SEC (9.8-11.6)
[2017-09-02 05:23] LABS: AUTOMATED NEUTROPHIL # 2.7 TH/MM3 (1.8-7.7); BASOPHIL % 1.1 % (0.0-2.0); EOSINOPHIL # 0.1 TH/MM3 (0-0.4); EOSINOPHIL % 1.3 % (0.0-4.0); HEMATOCRIT 36.5 % (39.0-51.0); HEMOGLOBIN 11.8 GM/DL (13.0-17.0); LYMPHOCYTE # 1.2 TH/MM3 (1.0-4.8); MEAN CELL VOLUME 94.1 FL (80.0-100.0); MEAN CORPUSCULAR HEMOGLOBIN 30.5 PG (27.0-34.0); MEAN CORPUSCULAR HGB CONC 32.4 % (32.0-36.0); MONO % 11.2 % (0.0-8.0); MONOCYTE # 0.5 TH/MM3 (0-0.9); NEUT % 60.4 % (16.0-70.0); PLATELET COUNT 91 TH/MM3 (150-450); RED BLOOD COUNT 3.88 MIL/MM3 (4.50-5.90); RED CELL DISTRIBUTION WIDTH 21.4 % (11.6-17.2); WHITE BLOOD COUNT 4.5 TH/MM3 (4.0-11.0)
[2017-09-02 05:31] LABS: ALBUMIN 3.7 GM/DL (3.4-5.0); ALKALINE PHOSPHATASE 423 U/L (45-117); ALT (GPT) 81 U/L (12-78); AST (GOT) 61 U/L (15-37); BICARBONATE 23.7 MEQ/L (21.0-32.0); BLOOD UREA NITROGEN 4 MG/DL (7-18); CALCIUM 9.9 MG/DL (8.5-10.1); CHLORIDE 94 MEQ/L (98-107); CREATININE 1.05 MG/DL (0.60-1.30); GLOMERULAR FILTRATION RATE 73 ML/MIN (>89); GLUCOSE,RANDOM 110 MG/DL (74-106); SODIUM (NA) 129 MEQ/L (136-145); TOTAL BILIRUBIN ADULT 1.1 MG/DL (0.2-1.0); TOTAL PROTEIN 8.7 GM/DL (6.4-8.2); TROPONIN I LESS THAN 0.02 NG/ML (0.02-0.05)
[2017-09-02 05:39] LABS: ACETAMINOPHEN LESS THAN 2.0 MCG/ML (10.0-30.0)
[2017-09-02 06:46] LABS: OVALOCYTES 1+ (NORMAL)
[2017-09-02 08:07] LABS: BILIRUBIN, URINE NEG (NEG); BLOOD, URINE NEG (NEG); GLUCOSE,URINE NEG (NEG); KETONE, URINE NEG (NEG); NITRITE,URINE NEG (NEG); URINE COLOR Straw (YELLW/STRAW); URINE LEUKOCYTE ESTERASE NEG (NEG)
[2017-09-02 08:17] VITALS: BP 122/64
--- NOTE | 2017-09-02 18:26 | EKG ---
Date Performed: 09/02/2017 Time Performed: 06:44:56 PTAGE: 57 years EKG: Sinus rhythm POSSIBLE LEFT ATRIAL ENLARGEMENT NONSPECIFIC T-WAVE ABNORMALITY BORDERLINE ECG Since the PREVIOUS TRACING , no significant change noted PREVIOUS TRACIN08/26/2017 08.17 DOCTOR: Iona Zambrano Interpretating Date/Time 09/02/2017 18:24:46
== END 2017-09-02 08:19 | disposition home or self-care (01) ==
LOC: NEPC 04:33
DX: R56.9 Unspecified convulsions (principal); D64.9 Anemia, unspecified; R94.31 Abnormal electrocardiogram [ECG] [EKG]; I48.91 Unspecified atrial fibrillation; E78.00 Pure hypercholesterolemia, unspecified; I11.0 Hypertensive heart disease with heart failure; I50.9 Heart failure, unspecified; J44.9 Chronic obstructive pulmonary disease, unspecified; I25.2 Old myocardial infarction; F17.200 Nicotine dependence, unspecified, uncomplicated; Z79.02 Long term (current) use of antithrombotics/antiplatelets; Z79.51 Long term (current) use of inhaled steroids; Z79.899 Other long term (current) drug therapy; Z88.5 Allergy status to narcotic agent; Z88.8 Allergy status to other drugs, medicaments and biological substances
CPT/HCPCS: 70450; 71045; 80053; 80307; 81001; 82550; 82552; 83880; 84484; 85025; 85610; 85730; 93005; 96360; 96361; 99285; J7030

== ENCOUNTER 2017-09-03 22:03 | Emergency (ER) | payer MEDICARE, MEDICAID ==
[~2017-09-03] VITALS: Ht 182.9 cm; Wt 90.9 kg
[2017-09-03 22:11] VITALS: BP 114/70; PULSE 94; RESP 16; TEMP 98; O2SAT 100
[2017-09-03] MEDS ORDERED: SODIUM CHLORIDE 0.9% FLUSH 10 ML FLUSH IVF PRN (22:45)
[2017-09-03 23:04] LABS: BASOPHIL # 0.1 TH/MM3 (0-0.2); BASOPHIL % 0.8 % (0.0-2.0); EOSINOPHIL % 0.5 % (0.0-4.0); HEMATOCRIT 32.4 % (39.0-51.0); HEMOGLOBIN 10.4 GM/DL (13.0-17.0); LYMPH % 27.9 % (9.0-44.0); MEAN CELL VOLUME 94.5 FL (80.0-100.0); MEAN CORPUSCULAR HEMOGLOBIN 30.4 PG (27.0-34.0); MEAN CORPUSCULAR HGB CONC 32.2 % (32.0-36.0); MONO % 15.2 % (0.0-8.0); MONOCYTE # 1.1 TH/MM3 (0-0.9); NEUT % 55.6 % (16.0-70.0); PLATELET COUNT 110 TH/MM3 (150-450); RED BLOOD COUNT 3.43 MIL/MM3 (4.50-5.90); RED CELL DISTRIBUTION WIDTH 21.3 % (11.6-17.2); WHITE BLOOD COUNT 7.2 TH/MM3 (4.0-11.0)
--- NOTE | 2017-09-03 23:04 | RADRPT ---
EXAM DATE: 09/03/2017 10:58 PM EDT AGE/SEX: 57 years / Male INDICATIONS: Chest pain and shortness of breath. CLINICAL DATA: This is the patient's initial encounter. Patient reports that signs and symptoms have been present for 2 days and indicates a pain score of 8/10. MEDICAL/SURGICAL HISTORY: . Diabetes mellitus type II. Hypertension. Chronic obstructive pulmon francisco disease. Seizures. CABG. Pacemaker. Defibrillator. 2 cardiac stents. Cardiac ablation. COMPARISON: [facility] – [place], CHEST SINGLE AP, 09/02/2017. . FINDINGS: 2 AP views of the chest were obtained and again demonstrate the patient is status post median sternot antonio. The right subclavian transvenous pacer remains in place. There are no confluent infiltrates or e ffusions. The heart size remains at the upper limits of normal with no evidence of pulmonary edema. S clerosis of the upper left humeral head is again noted. CONCLUSION: Stable appearance with no acute cardiac pulmonary disease. Electronically signed by: Mic Armstrong MD 09/03/2017 11:03 PM EDT
[2017-09-03 23:17] LABS: PROTHROMBIN TIME - PATIENT 10.1 SEC (9.8-11.6)
[2017-09-03 23:43] LABS: ALBUMIN 3.4 GM/DL (3.4-5.0); ALKALINE PHOSPHATASE 328 U/L (45-117); ALT (GPT) 59 U/L (12-78); AST (GOT) 60 U/L (15-37); BICARBONATE 17.3 MEQ/L (21.0-32.0); BLOOD UREA NITROGEN 7 MG/DL (7-18); CALCIUM 8.7 MG/DL (8.5-10.1); CHLORIDE 101 MEQ/L (98-107); CREATININE 1.23 MG/DL (0.60-1.30); GLOMERULAR FILTRATION RATE 61 ML/MIN (>89); GLUCOSE,RANDOM 76 MG/DL (74-106); MAGNESIUM 1.9 MG/DL (1.5-2.5); SODIUM (NA) 135 MEQ/L (136-145); TOTAL BILIRUBIN ADULT 0.6 MG/DL (0.2-1.0); TROPONIN I LESS THAN 0.02 NG/ML (0.02-0.05)
--- NOTE | 2017-09-04 01:16 | PD ---
HPI Chief Complaint: Chest Pain Time Seen by Provider: 23:09 Travel History International Travel<30 days: No Contact w/Intl Traveler<30days: No History of Present Illness HPI 57-year-old male notes continued chest pain since he was discharged from the hospital. He is concerned because he is also started to get swelling in his lower legs. He states he has not had any other new complaints since his recent discharge. He is concerned because he has history of heart disease. Quality of pain is sharp. Severity is moderate. Pain is worse with movement. He denies any other modifying factors. Duration is couple of days. He does not know who his rn diabetes is. PFSH Past Medical History Hx Anticoagulant Therapy: Yes Arthritis: No Asthma: No Atrial Fibrillation: Yes Autoimmune Disease: No Blood Disorders: No Anxiety: No Depression: No Heart Rhythm Problems: Yes (a- fib) Cancer: No Cardiac Catheterization: Yes (X5) Cardiovascular Problems: Yes (TRIPLE BYPASS) High Cholesterol: Yes Chemotherapy: No Chest Pain: Yes Congestive Heart Failure: Yes COPD: Yes Cerebrovascular Accident: No Diabetes: No Diminished Hearing: No Endocrine: No Gastrointestinal Disorders: Yes GERD: No Glaucoma: No Genitourinary: No Headaches: Yes Hepatitis: No Hiatal Hernia: No Hypertension: Yes Immune Disorder: No Implanted Vascular Access Dvce: Yes Kidney Stones: No Musculoskeletal: No Neurologic: Yes Psychiatric: No Reproductive: No Respiratory: Yes (COPD) Migraines: No Myocardial Infarction: Yes Radiation Therapy: No Renal Failure: No Seizures: Yes (EPILEPSY 2001) Sickle Cell Disease: No Sleep Apnea: No Thyroid Disease: No Ulcer: No PNEUMOCCOCAL Vaccine (Year): 2 Past Surgical History Abdominal Aneurysm Repair: Yes (1995) Abdominal Surgery: No AICD: Yes (01/20 [facility] [place]:[id number], [id number], removed) Appendectomy: No Arteriovenous Shunt: No Body Medical Devices: PACER Cardiac Surgery: Yes (CABG X 3 VESSEL IN , pacer, ablation) Cholecystectomy: No Coronary Artery Bypass Graft: Yes Coronary Stent: Yes (x2) Ear Surgery: No Endocrine Surgery: No Eye Surgery: No Genitourinary Surgery: No Gynecologic Surgery: No Insulin Pump: No Oral Surgery: No Pacemaker: Yes (AICD VIA DR GREGORIO) Thoracic Surgery: No Social History Alcohol Use: Yes (12-pack daily) Tobacco Use: Yes (6 cigarettes per day) Substance Use: No Allergies-Medications (Allergen,Severity, Reaction): Coded Allergies: cefazolin (Verified Adverse Reaction, Severe, Hives, 09/03/17) morphine (Verified Adverse Reaction, Intermediate, Nausea/Vomiting, ) Reported Meds & Prescriptions Reported Meds & Active Scripts Active Pantoprazole (Pantoprazole Sodium) 40 Mg Tab 40 Mg PO DAILY Tramadol (Tramadol HCl) 50 Mg Tab 50 Mg PO BID PRN Atorvastatin (Atorvastatin Calcium) 40 Mg Tab 40 Mg PO HS Metoprolol Succinate ER 24 HR (Metoprolol Succinate) 25 Mg Tab 25 Mg PO DAILY Plavix (Clopidogrel Bisulfate) 75 Mg Tab 75 Mg PO DAILY Glipizide 5 Mg Tab 5 Mg PO DAILY Take 30 minutes before a meal Lisinopril 5 Mg Tab 2.5 Mg PO DAILY Xarelto (Rivaroxaban) 20 Mg Tab 20 Mg PO DAILY Blood Glucose System Donny (Blood Glucose Monitoring Suppl) 1 Kit Kit Kit Reported Gabapentin 100 Mg Cap 100 Mg PO TID Levetiracetam 1,000 Mg Tab 1,000 Mg PO BID Review of Systems Except as stated in HPI: all other systems reviewed are Neg Physical Exam Narrative GENERAL: 57 y/o male in no apparent distress SKIN: Focused skin assessment warm/dry. HEAD: Atraumatic. Normocephalic. EYES: Pupils equal and round. No scleral icterus. No injection or drainage. ENT: No nasal bleeding or discharge. Mucous membranes pink and moist. NECK: Trachea midline. CARDIOVASCULAR: Regular rate and rhythm. RESPIRATORY: No accessory muscle use. Clear to auscultation. Breath sounds equal bilaterally. GASTROINTESTINAL: Abdomen soft, non-tender, nondistended. MUSCULOSKELETAL: No obvious deformities. No clubbing. No cyanosis. NEUROLOGICAL: Awake and alert. Moves all extremities. Normal speech. Data Data Last Documented VS Vital Signs Date Time Temp Pulse Resp B/P (MAP) Pulse Ox O2 Delivery O2 Flow Rate FiO2 09/03/17 22:11 98.0 94 16 114/70 (85) 100 Orders Orders Electrocardiogram (09/03/17 22:36) B-Type Natriuretic Peptide (09/03/17 22:36) Ckmb (Isoenzyme) Profile (09/03/17 22:36) Complete Blood Count With Diff (09/03/17 22:36) Comprehensive Metabolic Panel (09/03/17 22:36) Magnesium (Mg) (09/03/17 22:36) Prothrombin Time / Inr (Pt) (09/03/17 22:36) Act Partial Throm Time (Ptt) (09/03/17 22:36) Troponin I (09/03/17 22:36) Lipase (09/03/17 22:36) Chest, Single Ap (09/03/17 22:36) Ecg Monitoring (09/03/17 22:36) Bilateral Bp Monitoring (09/03/17 22:36) Iv Access Insert/Monitor (09/03/17 22:36) Oximetry (09/03/17 22:36) Sodium Chloride 0.9% Flush (Ns Flush) (09/03/17 22:45) Alcohol (Ethanol) (09/03/17 22:36) Drug Screen, Random Urine (09/03/17 22:36) CKMB (09/03/17 22:40) CKMB% (09/03/17 22:40) Ed Discharge Order (09/04/17 01:19) Labs Laboratory Tests Test 09/03/17 22:40 09/03/17 23:32 White Blood Count 7.2 TH/MM3 Red Blood Count 3.43 MIL/MM3 Hemoglobin 10.4 GM/DL Hematocrit 32.4 % Mean Corpuscular Volume 94.5 FL Mean Corpuscular Hemoglobin 30.4 PG Mean Corpuscular Hemoglobin Concent 32.2 % Red Cell Distribution Width 21.3 % Platelet Count 110 TH/MM3 Mean Platelet Volume 10.0 FL Neutrophils (%) (Auto) 55.6 % Lymphocytes (%) (Auto) 27.9 % Monocytes (%) (Auto) 15.2 % Eosinophils (%) (Auto) 0.5 % Basophils (%) (Auto) 0.8 % Neutrophils # (Auto) 4.0 TH/MM3 Lymphocytes # (Auto) 2.0 TH/MM3 Monocytes # (Auto) 1.1 TH/MM3 Eosinophils # (Auto) 0.0 TH/MM3 Basophils # (Auto) 0.1 TH/MM3 CBC Comment DIFF FINAL Differential Comment Prothrombin Time 10.1 SEC Prothromb Time International Ratio 1.0 RATIO Activated Partial Thromboplast Time 24.2 SEC Blood Urea Nitrogen 7 MG/DL Creatinine 1.23 MG/DL Random Glucose 76 MG/DL Total Protein 8.0 GM/DL Albumin 3.4 GM/DL Calcium Level 8.7 MG/DL Magnesium Level 1.9 MG/DL Alkaline Phosphatase 328 U/L Aspartate Amino Transf (AST/SGOT) 60 U/L Alanine Aminotransferase (ALT/SGPT) 59 U/L Total Bilirubin 0.6 MG/DL Sodium Level 135 MEQ/L Potassium Level 3.9 MEQ/L Chloride Level 101 MEQ/L Carbon Dioxide Level 17.3 MEQ/L Anion Gap 17 MEQ/L Estimat Glomerular Filtration Rate 61 ML/MIN Total Creatine Kinase 335 U/L Creatine Kinase MB 3.3 NG/ML Creatine Kinase MB % 1.0 % Troponin I LESS THAN 0.02 NG/ML B-Type Natriuretic Peptide 81 PG/ML Lipase 76 U/L Ethyl Alcohol Level 62 MG/DL Urine Opiates Screen NEG Urine Barbiturates Screen NEG Urine Amphetamines Screen NEG Urine Benzodiazepines Screen NEG Urine Cocaine Screen NEG Urine Cannabinoids Screen NEG MDM Medical Decision Making Medical Screen Exam Complete: Yes Emergency Medical Condition: Yes Medical Record Reviewed: Yes (pmh confirmed, patient had cardiac cath without significant stenosis on the of this month, CTA without emergent process, EGD without emergent process, CK-MB noted from prior) Interpretation(s) CBC & BMP Diagram 09/03/17 22:40 Total Protein 8.0 #, Albumin 3.4, Calcium Level 8.7 #, Magnesium Level 1.9, Alkaline Phosphatase 328 H, Aspartate Amino Transf (AST/SGOT) 60 H, Alanine Aminotransferase (ALT/SGPT) 59, Total Bilirubin 0.6 Last 24 hours Impressions Chest X-Ray 09/03/176 Signed Impressions: CONCLUSION: Stable appearance with no acute cardiac pulmonary disease. Differential Diagnosis anemia, gasritis, pancreatitis, chf, atypical cardiac Narrative Course Will check blood work, x-ray and reevaluate. Patient recently here with CK-MB elevation after recent hospitalization for chest pain. This will need to be trended. CK-MB has improved. Patient has extensive recent testing without emergent process. Patient's pain is very atypical. Patient denies any new complaints, all questions answered. Patient knows that follow up is incumbent on them and to return to the emergency room immediately if new or worsening symptoms develop. Patient given strict return precautions, vitals reviewed and are normal , agrees to further workup as an outpatient. Diagnosis Primary Impression: Chest wall pain Patient Instructions: General Instructions Additional Instructions: tylenol as needed, limit alcohol use, return as needed Med/Other Pt SpecificInfo: No Change to Meds Disposition: 01 DISCHARGE HOME Condition: Stable Monica Oro MD Sep 04, 2017 01:16
--- NOTE | 2017-09-04 15:16 | EKG ---
Date Performed: 09/03/2017 Time Performed: 22:10:33 PTAGE: 57 years EKG: Sinus rhythm WITH OCCASIONAL VENTRICULAR PREMATURE COMPLEXES POSSIBLE LEFT ATRIAL ENLARGEMENT NONSPECIFIC T-WAVE ABNORMALITY BORDERLINE ECG Since PREVIOUS TRACING , no significant change noted PREVIOUS TRACIN09/02/2017 06.44 DOCTOR: Jacob Coats Interpretating Date/Time 09/04/2017 15:14:03
== END 2017-09-04 02:09 | disposition home or self-care (01) ==
LOC: NEPE 22:03
DX: R07.89 Other chest pain (principal); F17.210 Nicotine dependence, cigarettes, uncomplicated; I11.0 Hypertensive heart disease with heart failure; I50.9 Heart failure, unspecified; E78.00 Pure hypercholesterolemia, unspecified; I48.91 Unspecified atrial fibrillation; Z79.01 Long term (current) use of anticoagulants; Z79.02 Long term (current) use of antithrombotics/antiplatelets; Z79.899 Other long term (current) drug therapy
CPT/HCPCS: 71045; 80053; 80307; 82550; 82552; 83690; 83735; 83880; 84484; 85025; 85610; 85730; 93005; 99285

== ENCOUNTER 2017-10-17 20:00 | Observation (INO) ==
[2017-10-17] MEDS ORDERED: Morphine Inj 4 MG/ML Vial IV.PUSH ONE (20:20)
--- NOTE | 2017-10-17 20:26 | ED ---
HPI General Chief complaint: Chest Pain Stated complaint: Chest pain Time Seen by Provider: 10/17/17 20:08 History of Present Illness HPI narrative: This is a 57-year-old male with history of atrial fibrillation, DVT, coronary artery disease, CHF, alcoholism, hyperlipidemia, hypertension, CABG, ejection fraction of 25-30%, presents via EMS for evaluation of chest pain and syncope. The patient reports that he drank approximately 8-9 beers this evening in his house. He then walked [email or web address] had some food and coffee. he was walking outside developed substernal chest pain and he had an episode of syncope. this this was approximately 2 hours prior to examination. He describes the pain as sharp, constant, no aggravating or alleviating factors. He reports that he has had this pain in the past. He reports that he did hit his head and he has an occipital headache. EMS provided him Zofran and aspirin prior to arrival. In the past the patient was Xarelto for anticoagulation but this was changed to Pradaxa in early September. He claims that he has been compliant with it. No other complaints at this time. Related Data Home Medications Medication Instructions Recorded Confirmed gabapentin 100 mg PO TID 09/11/17 10/17/17 levetiracetam 1,000 mg PO Q12H 09/11/17 10/17/17 metoprolol succinate 50 mg PO DAILY 09/11/17 10/17/17 Previous Rx's Medication Instructions Recorded clopidogrel [Plavix] 75 mg PO DAILY #30 tab 09/19/17 furosemide 20 mg PO DAILY #30 tab 09/19/17 dabigatran etexilate [Pradaxa] 150 mg PO BID #60 cap 09/20/17 Allergies Allergy/AdvReac Type Severity Reaction Status Date / Time cefazolin AdvReac Severe Hives Verified 10/17/17 20:07 nitroglycerin AdvReac Intermediate Nausea/Vomi Verified 10/17/17 20:07 ting MRI PRECAUTION AdvReac Severe Unresponsiv Uncoded 09/12/17 10:00 e Review of Systems Except as stated in HPI: all other systems reviewed are negative [facility] Medical History Medical History Afib (Acute) CAD (coronary artery disease) (Acute) CHF (congestive heart failure) (Acute) Epilepsy (Acute) Hx of blood clots (Acute) Hypercholesteremia (Acute) Surgical History Surgical History Hx of coronary artery bypass graft (Acute) Social History Social History Substance History: Unable to Obtain Second Hand Smoke Exposure: No Smoking Status: Former smoker Tobacco Type: Cigarettes How Often Do You Have a Drink Containing Alcohol: 4 or more times a week Recent Travel in [facility] within the Last 8 Weeks: No Recent Out of Country Travel within the Last 8 Weeks: No Immunization History Tetanus Immunization: <5 Years Hx Influenza Vaccine This Season: No Exam Narrative Exam Narrative: GENERAL: Disheveled male in no acute distress SKIN: Warm and dry. HEAD: Atraumatic. Normocephalic. EYES: Pupils equal and round. No scleral icterus. No injection or drainage. ENT: No nasal bleeding or discharge. Mucous membranes pink and moist. NECK: Trachea midline. No JVD. CARDIOVASCULAR: Regular rate and rhythm. No murmur appreciated. RESPIRATORY: No accessory muscle use. Clear to auscultation. Breath sounds equal bilaterally. GASTROINTESTINAL: Abdomen soft, non-tender, nondistended. Hepatic and splenic margins not palpable. MUSCULOSKELETAL: No obvious deformities. 2+ lower extremity edema bilaterally. NEUROLOGICAL: Awake and alert. No obvious cranial nerve deficits. Motor grossly within normal limits. Normal speech. Course Initial Documented Vital Signs Temperature 98.4 F 10/17/17 20:08 Pulse Rate 97 H 10/17/17 20:08 Respiratory Rate 18 10/17/17 20:08 Blood Pressure 122/63 10/17/17 20:08 Pulse Oximetry 98 10/17/17 20:08 Last Documented Vital Signs Temperature 97.8 F 10/18/17 15:15 Pulse Rate 95 H 10/18/17 15:15 Respiratory Rate 16 10/18/17 15:15 Blood Pressure 118/60 10/18/17 15:15 Pulse Oximetry 98 10/18/17 15:15 Medical Decision Making JERMAINE Attestation JERMAINE supervised visit: Yes Attestation: I, Dr. Coats, have reviewed the advance practice practitioner's documentation and am in agreement, met with the patient face to face, made the diagnosis, and the medical decision making was done by me. The patient was initially evaluated by pushpa Raymundo PA. Please see their complete history and physical. *My assessment and Findings: The patient presents with chest pain and syncope that occurred approximately 2 hours prior to arrival. The patient has a history of atrial fibrillation, DVT, coronary artery disease, congestive heart failure, hyperlipidemia, hypertension, and a prior ejection fraction of 25-30%. The patient had an EKG done on arrival that shows a sinus rhythm heart rate of 94, QRS duration 110 ms, QTC 438 ms with nonspecific T-wave abnormalities, no acute ST segment elevation. The patient's examination was remarkable for 1-2 + pitting edema bilateral lower extremities which he reports is slightly worse than usual. During the course of the patient's emergency department visit, the patient's history, examination, and differential diagnosis were reviewed with the patient. The patient was placed on a air sampling and monitoring with oximetry and frequent blood pressure monitoring. The patient had IV access obtained and blood work sent for analysis. The patient's laboratory studies were reviewed and remarkable for a white count of 5.7, platelets 133, monocytosis at 9.1, hemoglobin 11.3, PT 10.7, PTT 22.7, chemistry Reveals a troponin of less than 0.02, alkaline phosphatase 243, albumin 3.1, calcium 7.7. Radiology studies were reviewed and remarkable for a chest x-ray that reveals no acute cardiopulmonary disease, mild compensated cardiomegaly. The patient's results were discussed with the patient, including the plan of care. I explained that further testing and/ or monitoring is indicated based on the patient's history, examination, and/ or laboratory findings. Therefore, I recommended admission for additional evaluation. The patient expressed understanding and was agreeable with this plan. The patient was admitted to the hospital in stable condition and sent to a bed under the care of the [facility] service. MDM Narrative Medical decision making narrative: The patient was placed on ECG monitoring pulse oximetry. A 12 EKG was obtained. Lab work, chest x-ray, CT the brain has been ordered. Given history of atrial fibrillation, DVT, questionable compliance with anticoagulation, chest pain with syncope, CT pulmonary angiogram has been ordered. Patient is refusing nitroglycerin, requesting something for pain, 4 mg morphine has been ordered. According to his records he has a history of [employer] AICD placement in 2016, [employer] will be called for interrogation of the device. The patient's lab work and imaging studies have been reviewed. At this point time the plan is to admit him for further evaluation and treatment discussed with Dr. Potter. Differential Diagnosis Differential Diagnosis: Acute coronary syndrome, aortic dissection, pulmonary embolism, pneumothorax, pericarditis, myocarditis, pneumonia Lab Data Result diagrams: 10/18/17 08:06 10/18/17 08:06 Lab Results 10/17/17 10/17/17 10/17/17 Range/Units 20:30 20:30 20:30 WBC 5.7 (4.0-11.0) th/mm3 RBC 3.88 L (4.50-5.90) mil/mm3 Hgb 11.3 L (13.0-17.0) gm/dL Hct 34.4 L (39.0-51.0) % MCV 88.7 (80.0-100.0) fL MCH 29.2 (27.0-34.0) pg MCHC 33.0 (32.0-36.0) % RDW 19.0 H (11.6-17.2) % Plt Count 133 L (150-450) th/mm3 MPV 8.4 (7.0-11.0) fL Neut % (Auto) 33.1 (16.0-70.0) % Lymph % (Auto) 53.9 H (9.0-44.0) % Dale % (Auto) 9.1 H (0.0-8.0) % Eos % (Auto) 2.9 (0.0-4.0) % Baso % (Auto) 1.0 (0.0-2.0) % Neut # (Auto) 1.9 (1.8-7.7) th/mm3 Lymph # (Auto) 3.0 (1.0-4.8) th/mm3 Dale # (Auto) 0.5 (0.0-0.9) th/mm3 Eos # (Auto) 0.2 (0.0-0.4) th/mm3 Baso # (Auto) 0.1 (0.0-0.2) th/mm3 WBC Differential . Differential Comment Auto diff final PT 10.7 (9.8-11.6) sec INR 1.1 Ratio APTT 22.7 L (24.3-30.1) sec Sodium (136-145) meq/L Potassium (3.5-5.1) meq/L Chloride (98-107) meq/L Carbon Dioxide (21.0-32.0) meq/L Anion Gap (5-15) meq/L BUN (7-18) mg/dL Creatinine (0.60-1.30) mg/dL Estimated GFR (>89) mL/min Random Glucose (74-106) mg/dL Calcium (8.5-10.1) mg/dL Total Bilirubin (0.2-1.0) mg/dL AST (15-37) U/L ALT (12-78) U/L Alkaline Phosphatase (45-117) U/L Total Creatine Kinase 163 (39-308) U/L CK-MB (CK-2) 2.4 (0.5-3.6) ng/mL Troponin I Less than 0.02 L (0.02-0.05) ng/mL Total Protein (6.4-8.2) g/dL Albumin (3.4-5.0) g/dL Lipase (73-393) U/L Serum Alcohol (0-5) mg/dL 10/17/17 10/17/17 10/18/17 Range/Units 20:30 20:30 00:00 WBC (4.0-11.0) th/mm3 RBC (4.50-5.90) mil/mm3 Hgb (13.0-17.0) gm/dL Hct (39.0-51.0) % MCV (80.0-100.0) fL MCH (27.0-34.0) pg MCHC (32.0-36.0) % RDW (11.6-17.2) % Plt Count (150-450) th/mm3 MPV (7.0-11.0) fL Neut % (Auto) (16.0-70.0) % Lymph % (Auto) (9.0-44.0) % Dale % (Auto) (0.0-8.0) % Eos % (Auto) (0.0-4.0) % Baso % (Auto) (0.0-2.0) % Neut # (Auto) (1.8-7.7) th/mm3 Lymph # (Auto) (1.0-4.8) th/mm3 Dale # (Auto) (0.0-0.9) th/mm3 Eos # (Auto) (0.0-0.4) th/mm3 Baso # (Auto) (0.0-0.2) th/mm3 WBC Differential Differential Comment PT (9.8-11.6) sec INR Ratio APTT (24.3-30.1) sec Sodium 133 L (136-145) meq/L Potassium 3.5 (3.5-5.1) meq/L Chloride 97 L (98-107) meq/L Carbon Dioxide 23.0 (21.0-32.0) meq/L Anion Gap 13 (5-15) meq/L BUN 7 (7-18) mg/dL Creatinine 1.09 (0.60-1.30) mg/dL Estimated GFR 70 L (>89) mL/min Random Glucose 151 H (74-106) mg/dL Calcium 7.7 L (8.5-10.1) mg/dL Total Bilirubin 0.2 (0.2-1.0) mg/dL AST 56 H (15-37) U/L ALT 29 (12-78) U/L Alkaline Phosphatase 243 H (45-117) U/L Total Creatine Kinase (39-308) U/L CK-MB (CK-2) (0.5-3.6) ng/mL Troponin I Less than 0.02 L (0.02-0.05) ng/mL Total Protein 7.5 (6.4-8.2) g/dL Albumin 3.1 L (3.4-5.0) g/dL Lipase 253 (73-393) U/L Serum Alcohol 325 H (0-5) mg/dL 10/18/1718 Range/Units 08:06 08:06 WBC 6.8 (4.0-11.0) th/mm3 RBC 3.72 L (4.50-5.90) mil/mm3 Hgb 11.0 L (13.0-17.0) gm/dL Hct 33.6 L (39.0-51.0) % MCV 90.4 (80.0-100.0) fL MCH 29.7 (27.0-34.0) pg MCHC 32.8 (32.0-36.0) % RDW 18.5 H (11.6-17.2) % Plt Count 111 L (150-450) th/mm3 MPV 8.3 (7.0-11.0) fL Neut % (Auto) 56.7 (16.0-70.0) % Lymph % (Auto) 31.2 (9.0-44.0) % Dale % (Auto) 7.8 (0.0-8.0) % Eos % (Auto) 3.6 (0.0-4.0) % Baso % (Auto) 0.7 (0.0-2.0) % Neut # (Auto) 3.9 (1.8-7.7) th/mm3 Lymph # (Auto) 2.1 (1.0-4.8) th/mm3 Dale # (Auto) 0.5 (0.0-0.9) th/mm3 Eos # (Auto) 0.2 (0.0-0.4) th/mm3 Baso # (Auto) 0.0 (0.0-0.2) th/mm3 WBC Differential . Differential Comment Auto diff final PT (9.8-11.6) sec INR Ratio APTT (24.3-30.1) sec Sodium 140 (136-145) meq/L Potassium 3.5 (3.5-5.1) meq/L Chloride 103 (98-107) meq/L Carbon Dioxide 24.0 (21.0-32.0) meq/L Anion Gap 13 (5-15) meq/L BUN 8 (7-18) mg/dL Creatinine 0.92 (0.60-1.30) mg/dL Estimated GFR 85 L (>89) mL/min Random Glucose 113 H (74-106) mg/dL Calcium 7.8 L (8.5-10.1) mg/dL Total Bilirubin 0.2 (0.2-1.0) mg/dL AST 39 H (15-37) U/L ALT 24 (12-78) U/L Alkaline Phosphatase 241 H (45-117) U/L Total Creatine Kinase (39-308) U/L CK-MB (CK-2) (0.5-3.6) ng/mL Troponin I Less than 0.02 L (0.02-0.05) ng/mL Total Protein 6.8 D (6.4-8.2) g/dL Albumin 2.8 L (3.4-5.0) g/dL Lipase (73-393) U/L Serum Alcohol (0-5) mg/dL Imaging Data Radiologist's impression: Chest CTA 10/17/17 20:20 CONCLUSION: 1. No pulmonary embolus. 2. Resolving focal consolidation posteromedially of the right mid lung. 3. Mild to moderate fibroemphysematous changes are again noted. Chest X-Ray 10/17/17 20:20 CONCLUSION: No acute cardiopulmonary disease demonstrated. Mild compensated cardiomegaly. Head CT 10/17/17 20:20 CONCLUSION: Negative noncontrast head CT. . Discharge Plan Discharge Disposition Patient Disposition: 30 Still Patient Discharge Condition Condition: Stable Discharge Details Diagnosis: Chest pain, Syncope Physicians Team ED Provider: Jelena Coats ED Midlevel Provider: Zackary Salgado Primary Care Provider: UNKNOWN, Attending Provider: Elizabeth Macdonald Status ED Status: Left Department Discharge Information Discharge Date/Time: 10/18/17 00:30
--- NOTE | 2017-10-17 20:37 | XR ---
EXAM DATE: 10/17/2017 8:33 PM EDT AGE/SEX: 57 years / Male INDICATIONS: Chest pain CLINICAL DATA: This is the patient's initial encounter. Patient reports that signs and symptoms have been present for 4 - 6 months and indicates a pain score of 0/10. MEDICAL/SURGICAL HISTORY: . Congestive heart failure. Hypercholesterolemia. Cataracts. Epilepsy . AFib. HTN. COPD. Dyspnea. Diabetes. Liver disease. Anticoagulant therapy, Xarelto. Pacemaker. . C oronary artery stent. CABG x3. Ablation. Cardiac cath. Joint replacement x2. [place] [facility] [place]. . FINDINGS: No infiltrate, effusion or pneumothorax demonstrated. Heart size stable, mildly enlarged. Patient has a right subclavian transvenous cardiac pacer/defibrillator. There has been previous median sternotom y. CONCLUSION: No acute cardiopulmonary disease demonstrated. Mild compensated cardiomegaly. Electronically signed by: Felipe Gonzalez MD 10/17/2017 8:36 PM EDT
[2017-10-17 20:41] LABS: Baso # (Auto) 0.1 th/mm3 (0.0-0.2); Eos # (Auto) 0.2 th/mm3 (0.0-0.4); Eos % (Auto) 2.9 % (0.0-4.0); Hematocrit 34.4 % (39.0-51.0); Hemoglobin 11.3 gm/dL (13.0-17.0); Lymph % (Auto) 53.9 % (9.0-44.0); Mean Corpuscular Hemoglobin 29.2 pg (27.0-34.0); Mean Corpuscular Volume 88.7 fL (80.0-100.0); Mean Platelet Volume 8.4 fL (7.0-11.0); Mono # (Auto) 0.5 th/mm3 (0.0-0.9); Mono % (Auto) 9.1 % (0.0-8.0); Neut # (Auto) 1.9 th/mm3 (1.8-7.7); Neut % (Auto) 33.1 % (16.0-70.0); Platelet Count 133 th/mm3 (150-450); Red Blood Count 3.88 mil/mm3 (4.50-5.90); White Blood Count 5.7 th/mm3 (4.0-11.0)
[2017-10-17 21:01] LABS: Activated Partial Thrombo Time 22.7 sec (24.3-30.1); INR 1.1 Ratio; Prothrombin Time 10.7 sec (9.8-11.6)
[2017-10-17 21:04] LABS: Albumin 3.1 g/dL (3.4-5.0); Anion Gap 13 meq/L (5-15); Aspartate Aminotransferase 56 U/L (15-37); Blood Urea Nitrogen 7 mg/dL (7-18); Calcium 7.7 mg/dL (8.5-10.1); Chloride 97 meq/L (98-107); Glomerular Filtration Rate 70 mL/min (>89); Glucose,Random 151 mg/dL (74-106); Lipase 253 U/L (73-393); Potassium 3.5 meq/L (3.5-5.1); Sodium 133 meq/L (136-145)
[2017-10-17 21:05] LABS: Alanine Aminotransferase 29 U/L (12-78)
[2017-10-17 21:07] LABS: Alkaline Phosphatase 243 U/L (45-117); Total Protein 7.5 g/dL (6.4-8.2)
[2017-10-17 21:38] LABS: Creatine Kinase 163 U/L (39-308)
--- NOTE | 2017-10-17 21:48 | CT ---
EXAM DATE: 10/17/2017 9:43 PM EDT AGE/SEX: 57 years / Male INDICATIONS: Headaches CLINICAL DATA: This is the patient's initial encounter. Patient reports that signs and symptoms have been present for 1 day and indicates a pain score of 7/10. MEDICAL/SURGICAL HISTORY: Cardiovascular disease. Hypertension. Deep venous thrombosis. CABG. RADIATION DOSE: 66.34 CTDI (mGy) [place] [facility] [place]. . TECHNIQUE: CT of the head without contrast. Using automated exposure control and adjustment of the mA and/or kV according to patient size, radiation dose was kept as low as reasonably achievable to ob tain optimal diagnostic quality images. DICOM format image data is available electronically for revi ew and comparison. FINDINGS: Cerebrum: The ventricles are normal for age. No evidence of midline shift, mass lesion, hemorrhage or acute infarction. No extraaxial fluid collections are seen. Posterior Fossa: The cerebellum and brainstem are intact. The 4th ventricle is midline. The cerebe llopontine angle is unremarkable. Extracranial: The visualized portion of the orbits is intact. Skull: The calvaria is intact. No evidence of skull fracture. CONCLUSION: Negative noncontrast head CT. . Electronically signed by: Felipe Gonzalez MD 10/17/2017 9:46 PM EDT
[2017-10-17 21:50] LABS: Creatine Kinase MB 2.4 ng/mL (0.5-3.6)
--- NOTE | 2017-10-17 21:57 | CT ---
EXAM DATE: 10/17/2017 9:46 PM EDT AGE/SEX: 57 years / Male INDICATIONS: Chest pain with bilateral lower leg swelling. CLINICAL DATA: This is the patient's initial encounter. Patient reports that signs and symptoms have been present for 1 day and indicates a pain score of 7/10. MEDICAL/SURGICAL HISTORY: Cardiovascular disease. Hypertension. Deep venous thrombosis. CABG. 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 RADIATION DOSE: 10.88 CTDI (mGy) [place] [facility] [place] [facility] [place]EL[place]AST, 016. . TECHNIQUE: Volumetric scanning was performed using a multi-row detector CT scanner during bolus infu maryellen of 70 ml Omnipaque 350 (iohexol) nonionic water-soluble contrast as a single exam dose. The marlin a was post processed with a variety of visualization algorithms including full volume maximum intensi ty projection and sliding thin slab reformation. Using automated exposure control and adjustment of the mA and/or kV according to patient size, radiation dose was kept as low as reasonably achievable t o obtain optimal diagnostic quality images. DICOM format image data is available electronically for review and comparison. FINDINGS: There is no pulmonary embolus. Left ventricle is enlarged. Patient has had previous median sternotomy and CABG. Cardiac pacer/defibrillator again seen. Mild to moderate emphysema. Consolidation posteromedially right mid lung has improved. No acute pneum onia. No pleural effusion or pneumothorax. Enlarged and fatty infiltrated liver again seen. CONCLUSION: 1. No pulmonary embolus. 2. Resolving focal consolidation posteromedially of the right mid lung. 3. Mild to moderate fibroemphysematous changes are again noted. Electronically signed by: Felipe Gonzalez MD 10/17/2017 9:56 PM EDT
[2017-10-17] MEDS ORDERED: LORazepam 1 MG Tablet PO PRN (22:51)
[2017-10-17] MEDS ORDERED: Haloperidol Inj 5 MG/ML Ampul IV.PUSH PRN (22:51)
[2017-10-17] MEDS ORDERED: Acetaminophen 325 MG Tablet PO PRN (22:53)
[2017-10-17] MEDS ORDERED: Temazepam 15 MG Capsule PO PRN (22:53)
[2017-10-17] MEDS ORDERED: Bisacodyl 10 MG Supp RECTAL PRN (22:53)
--- NOTE | 2017-10-17 22:54 | P.HPIM ---
History of Present Illness Primary Care Physician: UNKNOWN History of Present Illness: This is a 57-year-old male with a PMH of Seizure, A. fib, h/o DVT on Pradaxa, PVD s/p Fem-Pop Bypass by Dr Elizabeth on 09/17/17, CHF (Cath 08/30/17 w/ EF 25-30%), s/p AICD, CABG and Alcohol Abuse who was brought to the ER by EMS after apparent syncopal episode. Pt is poor historian, but reports he drank about 8-9 beers today, went to [employer] and had acute c/o chest pain after which "I fainted ". No seizure activity reported. Reports compliance w/ medications. On arrival, BP 122/63, HR 97, O2 sat 98% on RA, Afebrile. CBC at baseline. Platelets 133, previously 100 on 09/11/2017. INR 1.1. Chemistry essentially unremarkable. Troponin negative. Alcohol 325. CXR with mild compensated cardiomegaly. CTA Pulm negative for PE, resolving consolidation, fibroemphysematous changes. CT Head negative. Pending AICD interrogation. - Diagnosis (1) Syncope (2) Chest pain (3) CHF (congestive heart failure) (4) Alcohol abuse Inpatient Certification: I certify that the inpatient services were ordered in accordance with Medicare regulations governing the order. This includes certification that hospital inpatient services are reasonable and necessary and in the case of services not specified as inpatient-only under 42 CFR 419.22(n), that they are appropriately provided as inpatient services in accordance to with the 2-midnight benchmark under 43 CFR 412.3(e) Review of Systems PAST FAMILY HISTORY: Reviewed. No h/o DM or CAD All other systems reviewed negative except as stated in HPI PMFSH - History History Provided By: Patient - Medical History Medical History: Medical History (Last Updated 10/17/17 @ 22:37 by Nate Sotomayor) Afib CAD (coronary artery disease) CHF (congestive heart failure) Epilepsy Hx of blood clots Hypercholesteremia - Surgical History Surgical History: Surgical History (Last Updated 10/17/17 @ 20:12 by Nate Sotomayor) Hx of coronary artery bypass graft - Tobacco History Tobacco Use In Past 30 Days: Yes Smoking Status: Current every day smoker Tobacco Type: Cigarettes - Alcohol History How Often Do You Have a Drink Containing Alcohol: 2 to 3 times a week - Travel History Recent Travel in the [place] Within the Last 8 Weeks: No Recent Travel Out of the Country Within the Last 8 Weeks: No - Immunization History Tetanus Immunization: <5 Years Hx Influenza Vaccine This Season: No Medications and Allergies Active Medications: Active Medications Sodium Chloride (Ns Flush) 2 ml IV.FLUSH UNSCH PRN PRN Reason: FLUSH AFTER USING IV ACCESS Allergies Allergy/AdvReac Type Severity Reaction Status Date / Time cefazolin AdvReac Severe Hives Verified 10/17/17 20:07 nitroglycerin AdvReac Intermediate Nausea/Vomi Verified 10/17/17 20:07 ting MRI PRECAUTION AdvReac Severe Unresponsiv Uncoded 09/12/17 10:00 e Home Medications Medication Instructions Recorded Confirmed Type gabapentin 100 mg PO TID 09/11/17 10/17/17 History levetiracetam 1,000 mg PO Q12H 09/11/17 10/17/17 History metoprolol succinate 50 mg PO DAILY 09/11/17 10/17/17 History Exam Vital signs: Vital Signs 10/17/17 20:08 10/17/17 20:20 10/17/17 21:57 Temperature 98.4 F Pulse Rate 97 H 103 H Respiratory Rate 18 18 Blood Pressure 122/63 119/58 L Pulse Oximetry 98 98 98 Intake & Output 10/17/17 10/17/17 10/18/17 06:59 18:59 06:59 Weight 90.718 kg Narrative: PE: GENERAL: Middle-aged white male in no acute distress, resting comfortably, + intoxicated. HEENT: PERRLA, EOMI. No scleral icterus or conjunctival pallor. No lid lag or facial droop. CARDIOVASCULAR: Regular rate and rhythm. No obvious murmurs to auscultation. No chest tenderness to palpation. RESPIRATORY: No obvious rhonchi or wheezing. Clear to auscultation. Breath sounds equal bilaterally. GASTROINTESTINAL: Abdomen soft, non-tender, nondistended. BS normal. MUSCULOSKELETAL: Extremities without clubbing, cyanosis. +2 edema. No obvious deformities. NEUROLOGICAL: Awake, alert and oriented x4. No focal neurologic deficits. Moving both upper and lower extremities spontaneously. Results - Labs CBC & Chem 7: 10/17/17 20:30 10/17/17 20:30 Labs: Short CBC 08/05/18 Range/Units 20:30 WBC 5.7 (4.0-11.0) th/mm3 Hgb 11.3 L (13.0-17.0) gm/dL Hct 34.4 L (39.0-51.0) % Plt Count 133 L (150-450) th/mm3 BMP 10/17/17 20:30 Sodium 133 L Potassium 3.5 Chloride 97 L Carbon Dioxide 23.0 BUN 7 Creatinine 1.09 Calcium 7.7 L Cardiac Enzymes 10/17/17 Range/Units 20:30 Total Creatine Kinase 163 (39-308) U/L CK-MB (CK-2) 2.4 (0.5-3.6) ng/mL Troponin I Less than 0.02 L (0.02-0.05) ng/mL Liver Function 10/17/17 Range/Units 20:30 Total Bilirubin 0.2 (0.2-1.0) mg/dL AST 56 H (15-37) U/L ALT 29 (12-78) U/L Alkaline Phosphatase 243 H (45-117) U/L Albumin 3.1 L (3.4-5.0) g/dL - Imaging Impressions Chest CTA 10/17/17 20:20 CONCLUSION: 1. No pulmonary embolus. 2. Resolving focal consolidation posteromedially of the right mid lung. 3. Mild to moderate fibroemphysematous changes are again noted. Chest X-Ray 10/17/17 20:20 CONCLUSION: No acute cardiopulmonary disease demonstrated. Mild compensated cardiomegaly. Head CT 10/17/17 20:20 CONCLUSION: Negative noncontrast head CT. . Caprini VTE Risk Assessment Caprini VTE Risk Assessment: Moderate/High Risk (score >= 2) Caprini Risk Assessment Model: Point Value = 1 Point Value = 2 Point Value = 3 Point Value = 5 Age 41-60 Minor surgery BMI > 25 kg/m2 Swollen legs Varicose veins or History of unexplained or recurrent spontaneous Oral contraceptives or hormone replacement Sepsis (< 1 month) Serious lung disease, including pneumonia (< 1 month) Abnormal pulmonary function Acute myocardial infarction Congestive heart failure (< 1 month) History of inflammatory bowel disease Medical patient at bed rest Age 61-74 Arthroscopic surgery Major open surgery (> 45 min) Laparoscopic surgery (> 45 min) Malignancy Confined to bed (> 72 hours) Immobilizing plaster cast Central venous access Age >= 75 History of VTE Family history of VTE Factor V Leiden Prothrombin [id number] Lupus anticoagulant Anticardiolipin antibodies Elevated serum homocysteine Heparin-induced thrombocytopenia Other congenital or acquired thrombophilia Stroke (< 1 month) Elective arthroplasty Hip, pelvis, or leg fracture Acute spinal cord injury (< 1 month) Prophylaxis Regimen: Total Risk Factor Score Risk Level Prophylaxis Regimen 0-1 Low Early ambulation 2 Moderate Order ONE of the following: *Sequential Compression Device (SCD) *Heparin 5000 units SQ BID 3-4 Higher Order ONE of the following medications: *Heparin 5000 units SQ TID *Enoxaparin/Lovenox 40 mg SQ daily (WT < 150 kg, CrCl > 30 mL/min) *Enoxaparin/Lovenox 30 mg SQ daily (WT < 150 kg, CrCl > 10-29 mL/min) *Enoxaparin/Lovenox 30 mg SQ BID (WT < 150 kg, CrCl > 30 mL/min) AND/OR *Sequential Compression Device (SCD) 5 or more Highest Order ONE of the following medications: *Heparin 5000 units SQ TID (Preferred with Epidurals) *Enoxaparin/Lovenox 40 mg SQ daily (WT < 150 kg, CrCl > 30 mL/min) *Enoxaparin/Lovenox 30 mg SQ daily (WT < 150 kg, CrCl > 10-29 mL/min) *Enoxaparin/Lovenox 30 mg SQ BID (WT < 150 kg, CrCl > 30 mL/min) AND *Sequential Compression Device (SCD) Assessment and Plan - Assessment (1) Syncope Code(s): R55 - Syncope and collapse Status: Acute (2) Chest pain Code(s): R07.9 - Chest pain, unspecified Status: Acute (3) CHF (congestive heart failure) Code(s): I50.9 - Heart failure, unspecified Status: Acute (4) Alcohol abuse Code(s): F10.10 - Alcohol abuse, uncomplicated Status: Acute - Plan A/P: 1. Syncope: acute syncopal event, CT Head w/ no acute findings, images reviewed. Admit for observation, follow up AICD interrogation for possible event in light of significant cardiomyopathy. Check serial cardiac enzymes. 2. Chest Pain: extensive cardiac history, s/p CABG, Cath 08/30/[address] Patel w/ patent LAD and mild to moderate restenosis ostial LAD, initial trop negative , check serial cardiac enzymes, Cardio eval as needed. CXR w/ compensated cardiomegaly. 3. CHF: Acute on Chronic. Systolic. Cath 08/30/17 w/ EF 25-30%, s/p AICD, + lower extremity edema, give Lasix 40mg IV x1, monitor I/O, resume home diuresis. 4. Alcohol Abuse: w/ Acute Alcohol Intoxication, Alcohol 359, drank 8-9 beers tonight, CIWA, Seizure Precautions, MVT/Thiamine/Folate replacement. 5. DVT Prophylaxis: Resume home Pradaxa 6. Social work for d/c planning as needed 7. Case discussed w/ ER physician at length, labs/records/imaging reviewed by me.
[2017-10-17] MEDS: Morphine Inj 4 MG/ML Vial IV.PUSH PRN (23:30)
[2017-10-17] MEDS: levETIRAcetam 500 MG Tablet PO SCH (23:30)
[2017-10-18] MEDS: Morphine Inj 4 MG/ML Vial IV.PUSH PRN ×5 (03:28→20:22)
[2017-10-18 08:56] LABS: Baso % (Auto) 0.7 % (0.0-2.0); Eos # (Auto) 0.2 th/mm3 (0.0-0.4); Eos % (Auto) 3.6 % (0.0-4.0); Hematocrit 33.6 % (39.0-51.0); Lymph # (Auto) 2.1 th/mm3 (1.0-4.8); Lymph % (Auto) 31.2 % (9.0-44.0); Mean Corpuscular HGB Conc 32.8 % (32.0-36.0); Mean Corpuscular Hemoglobin 29.7 pg (27.0-34.0); Mean Corpuscular Volume 90.4 fL (80.0-100.0); Mean Platelet Volume 8.3 fL (7.0-11.0); Mono # (Auto) 0.5 th/mm3 (0.0-0.9); Mono % (Auto) 7.8 % (0.0-8.0); Neut # (Auto) 3.9 th/mm3 (1.8-7.7); Neut % (Auto) 56.7 % (16.0-70.0); Platelet Count 111 th/mm3 (150-450); Red Blood Count 3.72 mil/mm3 (4.50-5.90); Red Cell Distribution Width 18.5 % (11.6-17.2); White Blood Count 6.8 th/mm3 (4.0-11.0)
[2017-10-18] MEDS ORDERED: Furosemide 20 MG Tablet PO SCH (09:00)
--- NOTE | 2017-10-18 09:21 | P.PN ---
Subjective Interval history: Follow up for chest pain, syncope, alcohol intoxication. The patient reports not feeling well today. He states his body is filling up with fluid, with associated shortness of breath and lower extremity swelling. He reports compliance with his lasix at home but does not recall his dose. He states he was just sitting at [employer] yesterday when he passed out. He remembers being slightly dizzy before he passed out, however does have difficulty recalling all the events leading up to the episode. He admits to drinking beer but does not quantify how much. He states he has continued chest pain, consistent with previous chest pains, and is requesting something stronger for pain. He denies any other medical complaints at this time. Physical Exam Vital signs: Vital Signs 10/17/17 20:08 10/17/17 20:20 10/17/17 21:57 Temperature 98.4 F Pulse Rate 97 H 103 H Respiratory Rate 18 18 Blood Pressure 122/63 119/58 L Pulse Oximetry 98 98 98 10/17/17 23:35 10/18/17 02:23 10/18/17 03:25 Temperature 98.8 F Pulse Rate 114 H 113 H Respiratory Rate 18 16 Blood Pressure 108/56 L 94/53 L 117/62 Pulse Oximetry 96 99 10/18/17 03:40 10/18/17 07:34 10/18/17 07:46 Temperature 97.8 F Pulse Rate 115 H Respiratory Rate 20 18 Blood Pressure 95/51 L Pulse Oximetry 98 94 L 10/18/17 08:35 10/18/17 08:59 10/18/17 09:01 Temperature Pulse Rate 110 H Respiratory Rate 22 Blood Pressure Pulse Oximetry 96 Intake & Output 10/17/17 10/18/17 10/18/17 18:59 06:59 18:59 Intake Total 500 / 500 Output Total 1999 Balance -1999 500 / 500 Weight 90.718 kg Intake: Oral 500 / 500 Output: Urine 1999 Narrative: GENERAL: Well-nourished, well-developed middle aged male patient in [facility]. SKIN: Warm and dry. No rash. HEENT: Normocephalic. Atraumatic. Pupils equal and round. Mucous membranes pink and moist. CARDIOVASCULAR: Regular rate and rhythm. No murmur appreciated. RESPIRATORY: No accessory muscle use. Breath sounds diminished at bilateral bases, otherwise clear to auscultation. Breath sounds equal bilaterally. GASTROINTESTINAL: Abdomen soft, non-tender, nondistended. Normoactive bowel sounds x4. MUSCULOSKELETAL: No obvious deformities. 2+ bilateral lower extremity pitting edema. NEUROLOGICAL: Awake and alert. No obvious cranial nerve deficits. Motor grossly within normal limits. Moving all extremities spontaneously. Normal speech. Results - Labs CBC & Chem 7: 10/18/17 08:06 10/18/17 08:06 Laboratory Results - last 24 hr 10/17/17 10/17/17 10/17/17 20:30 20:30 20:30 WBC 5.7 RBC 3.88 L Hgb 11.3 L Hct 34.4 L MCV 88.7 MCH 29.2 MCHC 33.0 RDW 19.0 H Plt Count 133 L MPV 8.4 Neut % (Auto) 33.1 Lymph % (Auto) 53.9 H Murray % (Auto) 9.1 H Eos % (Auto) 2.9 Baso % (Auto) 1.0 Neut # (Auto) 1.9 Lymph # (Auto) 3.0 Murray # (Auto) 0.5 Eos # (Auto) 0.2 Baso # (Auto) 0.1 WBC Differential . Differential Comment Auto diff final PT 10.7 INR 1.1 APTT 22.7 L Sodium Potassium Chloride Carbon Dioxide Anion Gap BUN Creatinine Estimated GFR Random Glucose Calcium Total Bilirubin AST ALT Alkaline Phosphatase Total Creatine Kinase 163 CK-MB (CK-2) 2.4 Troponin I Less than 0.02 L Total Protein Albumin Lipase Serum Alcohol 10/17/17 10/17/17 10/18/17 20:30 20:30 00:00 WBC RBC Hgb Hct MCV MCH MCHC RDW Plt Count MPV Neut % (Auto) Lymph % (Auto) Murray % (Auto) Eos % (Auto) Baso % (Auto) Neut # (Auto) Lymph # (Auto) Murray # (Auto) Eos # (Auto) Baso # (Auto) WBC Differential Differential Comment PT INR APTT Sodium 133 L Potassium 3.5 Chloride 97 L Carbon Dioxide 23.0 Anion Gap 13 BUN 7 Creatinine 1.09 Estimated GFR 70 L Random Glucose 151 H Calcium 7.7 L Total Bilirubin 0.2 AST 56 H ALT 29 Alkaline Phosphatase 243 H Total Creatine Kinase CK-MB (CK-2) Troponin I Less than 0.02 L Total Protein 7.5 Albumin 3.1 L Lipase 253 Serum Alcohol 325 H 10/18/17 08:06 WBC 6.8 RBC 3.72 L Hgb 11.0 L Hct 33.6 L MCV 90.4 MCH 29.7 MCHC 32.8 RDW 18.5 H Plt Count 111 L MPV 8.3 Neut % (Auto) 56.7 Lymph % (Auto) 31.2 Murray % (Auto) 7.8 Eos % (Auto) 3.6 Baso % (Auto) 0.7 Neut # (Auto) 3.9 Lymph # (Auto) 2.1 Murray # (Auto) 0.5 Eos # (Auto) 0.2 Baso # (Auto) 0.0 WBC Differential . Differential Comment Auto diff final PT INR APTT Sodium Potassium Chloride Carbon Dioxide Anion Gap BUN Creatinine Estimated GFR Random Glucose Calcium Total Bilirubin AST ALT Alkaline Phosphatase Total Creatine Kinase CK-MB (CK-2) Troponin I Total Protein Albumin Lipase Serum Alcohol - Imaging Impressions Chest CTA 10/17/17 20:20 CONCLUSION: 1. No pulmonary embolus. 2. Resolving focal consolidation posteromedially of the right mid lung. 3. Mild to moderate fibroemphysematous changes are again noted. Chest X-Ray 10/17/17 20:20 CONCLUSION: No acute cardiopulmonary disease demonstrated. Mild compensated cardiomegaly. Head CT 10/17/17 20:20 CONCLUSION: Negative noncontrast head CT. . Assessment and Plan - Assessment (1) Syncope Code(s): R55 - Syncope and collapse Status: Acute (2) Chest pain Code(s): R07.9 - Chest pain, unspecified Status: Acute (3) CHF (congestive heart failure) Code(s): I50.9 - Heart failure, unspecified Status: Acute (4) Alcohol abuse Code(s): F10.10 - Alcohol abuse, uncomplicated Status: Acute - Plan 57-year-old male with a PMH of Seizure, A. fib, h/o DVT on Pradaxa, PVD s/p Fem- Pop Bypass by Dr Elizabeth on 09/17/17, CHF (Cath 08/30/17 w/ EF 25-30%), s/p AICD, CABG and Alcohol Abuse who was brought to the ER by EMS after apparent syncopal episode. Syncope: acute syncopal event, CT Head w/ no acute findings, images reviewed. Strongly suspect secondary to alcohol intoxication. -Follow up AICD interrogation for possible event in light of significant cardiomyopathy. -ACS ruled out -Check orthostatics -Monitor on telemetry Chest Pain: patient with hx of chronic chest pain, extensive cardiac history, s /p CABG, Cath 08/30/[address] Patel w/ patent LAD and mild to moderate restenosis ostial LAD -ACS ruled out with negative serial cardiac enzymes x3 and EKG without acute ischemic changes -Continue patient's home meds including plavix, metoprolol -CXR w/ compensated cardiomegaly. -Monitor on telemetry Acute Exacerbation of Chronic Systolic CHF: Cath 08/30/17 w/ EF 25-30%, s/p AICD , +lower extremity edema -Give IV Lasix 40mg bid -monitor I/O, daily weights -continue patient's BB, unable to start KELBY due to low blood pressure Alcohol Abuse: w/ Acute Alcohol Intoxication, Alcohol 359, drank 8-9 beers tonight -Continue CIWA -Seizure Precautions -MVT/Thiamine/Folate replacement. DVT Prophylaxis: Resumed home Pradaxa Discharge Planning: Discharge pending further clinical improvement. Possible discharge in 1-2 days.
[2017-10-18 09:22] LABS: Albumin 2.8 g/dL (3.4-5.0); Anion Gap 13 meq/L (5-15); Aspartate Aminotransferase 39 U/L (15-37); Blood Urea Nitrogen 8 mg/dL (7-18); Calcium 7.8 mg/dL (8.5-10.1); Chloride 103 meq/L (98-107); Glomerular Filtration Rate 85 mL/min (>89); Glucose,Random 113 mg/dL (74-106); Potassium 3.5 meq/L (3.5-5.1); Sodium 140 meq/L (136-145)
[2017-10-18 09:29] LABS: Alanine Aminotransferase 24 U/L (12-78); Alkaline Phosphatase 241 U/L (45-117); Total Protein 6.8 g/dL (6.4-8.2)
[2017-10-18] MEDS: levETIRAcetam 500 MG Tablet PO SCH ×2 (10:31→22:54)
[2017-10-18] MEDS: Multivitamin/Minerals Therapeutic Tablet PO SCH (10:32)
[2017-10-18] MEDS: Senna/Docusate Sodium 8.6/50 MG Tablet PO SCH ×2 (10:32→20:22)
[2017-10-18] MEDS: Gabapentin 100 MG Capsule PO SCH ×3 (10:33→18:39)
[2017-10-18] MEDS: Folic Acid 1 MG Tablet PO SCH (10:34)
[2017-10-19] MEDS: Morphine Inj 4 MG/ML Vial IV.PUSH PRN ×5 (03:39→22:34)
--- NOTE | 2017-10-19 07:46 | ECG ---
Date Performed: 10/17/2017 Time Performed: 20:09:19 PTAGE: 57 years EKG: Sinus rhythm POSSIBLE LEFT ATRIAL ENLARGEMENT NONSPECIFIC T-WAVE ABNORMALITY BORDERLINE ECG PREVIOUS TRACING : 09/08/2017 06.24 DOCTOR: Jonathan Beaulieu Interpretating Date/Time 10/19/2017 07:39:25
[2017-10-19 08:09] LABS: Calcium 8.7 mg/dL (8.5-10.1); Carbon Dioxide 29.8 meq/L (21.0-32.0); Potassium 3.2 meq/L (3.5-5.1)
[2017-10-19] MEDS: Gabapentin 100 MG Capsule PO SCH ×3 (09:40→17:32)
[2017-10-19] MEDS: Senna/Docusate Sodium 8.6/50 MG Tablet PO SCH ×2 (09:40→21:40)
[2017-10-19] MEDS: Folic Acid 1 MG Tablet PO SCH (09:41)
[2017-10-19] MEDS: Multivitamin/Minerals Therapeutic Tablet PO SCH (12:04)
[2017-10-19] MEDS: levETIRAcetam 500 MG Tablet PO SCH ×2 (12:06→22:34)
--- NOTE | 2017-10-19 13:07 | P.PN ---
Subjective Interval history: Follow-up for CHF exacerbation, syncope, alcohol intoxication. The patient reports feeling slightly better today. He still is reporting some shortness of breath, especially on exertion. He states just sitting up on the side of the bed he gets winded. He states his chest pain/tightness is improving as well. He still has some lower extremity edema. Denies any lightheadedness or dizziness. Denies any other medical complaints at this time. Thoroughly discussed CHF education. The patient states that he has been drinking 2 gallons of water daily because he thought that is what he was supposed to do. He states nobody has told him to restrict his fluid intake. We discussed limiting his fluid intake to less than [id number] mL daily, patient verbalized understanding. Also thoroughly discussed cessation from alcohol. Physical Exam Vital signs: Vital Signs 10/18/17 15:15 10/18/17 19:55 10/18/17 20:00 Temperature 97.8 F 98.5 F Pulse Rate 95 H 93 H 90 Respiratory Rate 16 17 Blood Pressure 118/60 106/56 L Pulse Oximetry 98 96 10/18/17 20:07 10/18/17 21:07 10/19/17 03:35 Temperature 98.5 F Pulse Rate 93 H Respiratory Rate 20 17 Blood Pressure 117/75 Pulse Oximetry 99 97 10/19/17 04:00 10/19/17 08:00 10/19/17 12:00 Temperature 97.4 F L 97.7 F Pulse Rate 85 95 H 77 Respiratory Rate 16 16 Blood Pressure 125/68 116/68 Pulse Oximetry 97 98 Intake & Output 10/18/17 10/19/17 10/19/17 18:59 06:59 18:59 Intake Total 500 / 500 Balance 500 / 500 Intake: Oral 500 / 500 Narrative: GENERAL: Well-nourished, well-developed middle aged male patient in [facility]. SKIN: Warm and dry. No rash. HEENT: Normocephalic. Atraumatic. Pupils equal and round. Mucous membranes pink and moist. CARDIOVASCULAR: Regular rate and rhythm. No murmur appreciated. RESPIRATORY: No accessory muscle use. Breath sounds diminished at bilateral bases, otherwise clear. Breath sounds equal bilaterally. GASTROINTESTINAL: Abdomen soft, non-tender, nondistended. Normoactive bowel sounds x4. MUSCULOSKELETAL: No obvious deformities. 2+ bilateral lower extremity pitting edema. NEUROLOGICAL: Awake and alert. No obvious cranial nerve deficits. Motor grossly within normal limits. Moving all extremities spontaneously. Normal speech. Results - Labs CBC & Chem 7: 10/18/17 08:06 10/19/17 06:57 Laboratory Results - last 24 hr 10/18/17 10/19/17 10/19/17 19:51 06:57 09:32 Sodium 139 Potassium 3.2 L Chloride 102 Carbon Dioxide 29.8 Anion Gap 7 BUN 8 Creatinine 0.97 Estimated GFR 80 L POC Glucose 138 H 112 H Random Glucose 91 Calcium 8.7 D - Imaging Chest CTA 10/17/17 20:20 CONCLUSION: 1. No pulmonary embolus. 2. Resolving focal consolidation posteromedially of the right mid lung. 3. Mild to moderate fibroemphysematous changes are again noted. Chest X-Ray 10/17/17 20:20 CONCLUSION: No acute cardiopulmonary disease demonstrated. Mild compensated cardiomegaly. Head CT 10/17/17 20:20 CONCLUSION: Negative noncontrast head CT. . Assessment and Plan - Assessment (1) Syncope Code(s): R55 - Syncope and collapse Status: Acute (2) Chest pain Code(s): R07.9 - Chest pain, unspecified Status: Acute (3) CHF (congestive heart failure) Code(s): I50.9 - Heart failure, unspecified Status: Acute (4) Alcohol abuse Code(s): F10.10 - Alcohol abuse, uncomplicated Status: Acute - Plan 57-year-old male with a PMH of Seizure, A. fib, h/o DVT on Pradaxa, PVD s/p Fem- Pop Bypass by Dr Elizabeth on 09/17/17, CHF (Cath 08/30/17 w/ EF 25-30%), s/p AICD, CABG and Alcohol Abuse who was brought to the ER by EMS after apparent syncopal episode. Syncope: acute syncopal event, CT Head w/ no acute findings, images reviewed. Strongly suspect secondary to alcohol intoxication. -Follow up [employer] AICD interrogation for possible event in light of significant cardiomyopathy, discussed with RN today -ACS ruled out with negative serial cardiac enzymes x3 -Check orthostatics -Monitor on telemetry Acute Exacerbation of Chronic Systolic CHF: Cath 08/30/17 w/ EF 25-30%, s/p AICD , +lower extremity edema -Give IV Lasix 40mg bid -monitor I/O, daily weights -continue patient's BB, unable to start KELBY due to low blood pressure -Thoroughly counseled on CHF education including daily weights, fluid/salt restrictions, no alcohol -slowly improving, not yet ready for discharge Chest Pain: patient with hx of chronic chest pain, extensive cardiac history, s /p CABG, Cath 08/30/[address] Patel w/ patent LAD and mild to moderate restenosis ostial LAD -ACS ruled out with negative serial cardiac enzymes x3 and EKG without acute ischemic changes -Continue patient's home meds including plavix, metoprolol -CXR w/ compensated cardiomegaly. -Monitor on telemetry -Improving with diuresis Alcohol Abuse: w/ Acute Alcohol Intoxication, Alcohol 359, drank 8-9 beers tonight -Continue CIWA -Seizure Precautions -MVT/Thiamine/Folate replacement. DVT Prophylaxis: Resumed home Pradaxa Discharge Planning: Discharge pending further clinical improvement. Needs further diuresis. Await AICD interrogation. Possible discharge tomorrow.
[2017-10-19 18:14] LABS: Amphetamine Screen,Urine Neg (Neg); Barbiturate Screen,Urine Neg (Neg); Cannabinoid Screen,Urine Neg (Neg); Cocaine Screen,Urine Neg (Neg)
[2017-10-19 18:15] LABS: Opiate Screen,Urine Neg (Neg)
[2017-10-20] MEDS: Morphine Inj 4 MG/ML Vial IV.PUSH PRN (02:14)
[2017-10-20 03:34] VITALS: O2SAT 97
[2017-10-20 07:26] VITALS: BP 93/54; PULSE 75; RESP 16; TEMP 98.1
[2017-10-20] MEDS: Senna/Docusate Sodium 8.6/50 MG Tablet PO SCH (09:19)
[2017-10-20] MEDS: Multivitamin/Minerals Therapeutic Tablet PO SCH (09:19)
[2017-10-20] MEDS: Folic Acid 1 MG Tablet PO SCH (09:20)
[2017-10-20] MEDS: Gabapentin 100 MG Capsule PO SCH (09:20)
--- NOTE | 2017-10-20 09:39 | P.PN ---
Subjective Interval history: Follow-up for CHF exacerbation, syncope. Patient reports feeling much better today. He denies any shortness of breath. He states his leg swelling is almost resolved, only minimal edema on the feet. Denies any chest pain. He complains that his fingers and toes are numb, however they have been this way for a long time. He is on gabapentin for neuropathy. He has no other medical complaints including no headache, lightheadedness, dizziness, palpitations, or abdominal complaints. Physical Exam Vital signs: Vital Signs 10/19/17 12:00 10/19/17 16:00 10/19/17 20:00 Temperature 97.7 F 97.5 F L 98.5 F Pulse Rate 77 83 82 Respiratory Rate 16 16 17 Blood Pressure 116/68 115/64 131/74 Pulse Oximetry 98 98 99 10/20/17 00:00 10/20/17 03:32 10/20/17 04:00 Temperature 98.4 F 98.2 F Pulse Rate 96 H 77 81 Respiratory Rate 17 17 Blood Pressure 111/63 109/64 Pulse Oximetry 98 97 10/20/17 07:24 Temperature 98.1 F Pulse Rate 75 Respiratory Rate 16 Blood Pressure 93/54 L Pulse Oximetry 97 Intake & Output 10/19/17 10/20/17 10/20/17 18:59 06:59 18:59 Intake Total 1400 / 1400 480 / 480 Output Total 2400 / 2400 1925 / 1925 Balance -1000 / -1000 -1445 / -1445 Weight 88.3 kg Intake: Oral 1400 / 1400 480 / 480 Output: Urine 2400 / 2400 1924 / 1925 Other: Post Void Residual 0 Narrative: GENERAL: Well-nourished, well-developed middle aged male patient in [facility]. SKIN: Warm and dry. No rash. HEENT: Normocephalic. Atraumatic. Pupils equal and round. Mucous membranes pink and moist. CARDIOVASCULAR: Regular rate and rhythm. No murmur appreciated. RESPIRATORY: No accessory muscle use. Breath sounds clear to auscultation. Breath sounds equal bilaterally. GASTROINTESTINAL: Abdomen soft, non-tender, nondistended. Normoactive bowel sounds x4. MUSCULOSKELETAL: No obvious deformities. Trace pedal edema, bilateral lower extremity edema significantly improved. NEUROLOGICAL: Awake and alert. No obvious cranial nerve deficits. Motor grossly within normal limits. Moving all extremities spontaneously. Normal speech. Results - Labs CBC & Chem 7: 10/18/17 08:06 10/19/17 06:57 Laboratory Results - last 24 hr 10/19/17 10/19/17 10/19/17 09:32 17:30 17:38 POC Glucose 112 H 133 H Urine Opiates Screen Neg Ur Barbiturates Screen Neg Ur Amphetamines Screen Neg U Benzodiazepines Scrn Neg Urine Cocaine Screen Neg U Cannabinoids Screen Neg 10/19/17 10/20/17 21:45 09:18 POC Glucose 168 H 115 H Urine Opiates Screen Ur Barbiturates Screen Ur Amphetamines Screen U Benzodiazepines Scrn Urine Cocaine Screen U Cannabinoids Screen - Imaging Chest CTA 10/17/17 20:20 CONCLUSION: 1. No pulmonary embolus. 2. Resolving focal consolidation posteromedially of the right mid lung. 3. Mild to moderate fibroemphysematous changes are again noted. Chest X-Ray 10/17/17 20:20 CONCLUSION: No acute cardiopulmonary disease demonstrated. Mild compensated cardiomegaly. Head CT 10/17/17 20:20 CONCLUSION: Negative noncontrast head CT. . Assessment and Plan - Assessment (1) Syncope Code(s): R55 - Syncope and collapse Status: Acute (2) Chest pain Code(s): R07.9 - Chest pain, unspecified Status: Acute (3) CHF (congestive heart failure) Code(s): I50.9 - Heart failure, unspecified Status: Acute (4) Alcohol abuse Code(s): F10.10 - Alcohol abuse, uncomplicated Status: Acute - Plan 57-year-old male with a PMH of Seizure, A. fib, h/o DVT on Pradaxa, PVD s/p Fem- Pop Bypass by Dr Elizabeth on 09/17/17, CHF (Cath 08/30/17 w/ EF 25-30%), s/p AICD, CABG and Alcohol Abuse who was brought to the ER by EMS after apparent syncopal episode. Syncope: acute syncopal event, CT Head w/ no acute findings, images reviewed. Strongly suspect secondary to alcohol intoxication. -Follow up [employer] AICD interrogation for possible event in light of significant cardiomyopathy, discussed with RN -ACS ruled out with negative serial cardiac enzymes x3 -Orthostatics negative -Monitor on telemetry Acute Exacerbation of Chronic Systolic CHF: Cath 08/30/17 w/ EF 25-30%, s/p AICD , +lower extremity edema -Give IV Lasix 40mg bid -monitor I/O, daily weights -continue patient's BB, unable to start KELBY due to low blood pressure -Thoroughly counseled on CHF education including daily weights, fluid/salt restrictions, no alcohol -Much improved overnight, diuresed total -4.5 L, stable on room air, BLE edema almost resolved, stable for discharge Chest Pain: patient with hx of chronic chest pain, extensive cardiac history, s /p CABG, Cath 08/30/[address] Patel w/ patent LAD and mild to moderate restenosis ostial LAD -ACS ruled out with negative serial cardiac enzymes x3 and EKG without acute ischemic changes -Continue patient's home meds including plavix, metoprolol -CXR w/ compensated cardiomegaly. -Monitor on telemetry -Improved with diuresis Alcohol Abuse: w/ Acute Alcohol Intoxication, Alcohol 359, drank 8-9 beers tonight -Continue CIWA -Seizure Precautions -MVT/Thiamine/Folate replacement. DVT Prophylaxis: Resumed home Pradaxa Discharge Planning: Plan for discharge today after seen by physical therapy.
--- NOTE | 2017-10-20 09:56 | P.DCO ---
- Home Health Nursing Order: Medical education, Signs/symptoms of disease process, CHF education, Nursing assessment with vital signs - Certification I have seen patient Williams Robertson on 10/20/17. My clinical findings support the need for the requested home health care services because: Patient has SOB, Deconditioned with increased weakness, Limited ability to care for self I certify that my clinical findings support that this patient is homebound because: Unsafe to leave home unassisted, Unable to use public transportation, Poor cardiac reserve
--- NOTE | 2017-10-20 18:02 | P.DS ---
Date of admission: 10/17/17 22:41 Primary care physician: UNKNOWN Brief History from admission: This is a 57-year-old male with a PMH of Seizure, A. fib, h/o DVT on Pradaxa, PVD s/p Fem-Pop Bypass by Dr Elizabeth on 09/17/17, CHF (Cath 08/30/17 w/ EF 25-30%), s/p AICD, CABG and Alcohol Abuse who was brought to the ER by EMS after apparent syncopal episode. Pt is poor historian, but reports he drank about 8-9 beers today, went to [employer] and had acute c/o chest pain after which "I fainted ". No seizure activity reported. Reports compliance w/ medications. On arrival, BP 122/63, HR 97, O2 sat 98% on RA, Afebrile. CBC at baseline. Platelets 133, previously 100 on 09/11/2017. INR 1.1. Chemistry essentially unremarkable. Troponin negative. Alcohol 325. CXR with mild compensated cardiomegaly. CTA Pulm negative for PE, resolving consolidation, fibroemphysematous changes. CT Head negative. Pending AICD interrogation. DS: Diagnosis - Discharge Diagnosis (1) PVD (peripheral vascular disease) Status: Acute (2) DVT (deep venous thrombosis) Status: Acute (3) Chest pain Status: Acute (4) Syncope Status: Acute (5) Alcohol abuse Status: Acute (6) CHF (congestive heart failure) Status: Acute DS: Medications - Discharge Medications Prescriptions: furosemide 20 mg PO BID #60 tab potassium chloride 10 meq PO BID #60 cap DS: Summary Hospital Course: 57-year-old male with a PMH of Seizure, A. fib, h/o DVT on Pradaxa, PVD s/p Fem- Pop Bypass by Dr Elizabeth on 09/17/17, CHF (Cath 08/30/17 w/ EF 25-30%), s/p AICD, CABG and Alcohol Abuse who was brought to the ER by EMS after apparent syncopal episode. Syncope: acute syncopal event, CT Head w/ no acute findings, images reviewed. Strongly suspect secondary to alcohol intoxication as alcohol level 325 upon arrival. ACS ruled out with negative serial cardiac enzymes x3. Orthostatics negative. Monitored on telemetry, no acute findings. Symptoms resolved. Acute Exacerbation of Chronic Systolic CHF: Cath 08/30/17 w/ EF 25-30%, s/p AICD , +lower extremity edema. Given IV Lasix 40mg bid. Monitored I/O, daily weights. Continued patient's BB, unable to start KELBY due to low blood pressure. Patient admits to drinking 2 gallons of water daily, and also continues to drink alcohol/beer on a regular basis. Thoroughly counseled on CHF education including daily weights, fluid/salt restrictions, no alcohol. Much improved overnight, diuresed total -4.5 L throughout admission, stable on room air, BLE edema almost resolved, stable for discharge. Discharged on increased dose of lasix 20mg bid. Recommended outpatient f/up with his judge clerk Dr. Beaulieu. Chest Pain: patient with hx of chronic chest pain, extensive cardiac history, s /p CABG, Cath 08/30/[address] Patel w/ patent LAD and mild to moderate restenosis ostial LAD. ACS ruled out with negative serial cardiac enzymes x3 and EKG without acute ischemic changes. Continued patient's home meds including plavix, metoprolol. CXR w/ compensated cardiomegaly. Monitored on telemetry. Symptoms resolved with diuresis. Alcohol Abuse: w/ Acute Alcohol Intoxication, Alcohol 359, drank 8-9 beers prior to arrival. Continued CIWA. Seizure Precautions. MVT/Thiamine/Folate replacement. Generalized Weakness: suspect multifactorial with CHF and alcohol abuse. Consulted PT, recommends walker and HHC, however per RN, patient reportedly did not want to wait in hospital long enough to obtain walker at discharge and instead left the building. - Time Spent with Patient Total time spent providing and/or coordinating discharge services: Greater than 30 minutes - Quality: VTE Deep Vein Thrombosis/Pulmonary Embolism Present on Admission: No Exam Vital signs: Vital Signs 10/19/17 20:00 10/20/17 00:00 10/20/17 03:32 Temperature 98.5 F 98.4 F 98.2 F Pulse Rate 82 96 H 77 Respiratory Rate 17 17 17 Blood Pressure 131/74 111/63 109/64 Pulse Oximetry 99 98 97 10/20/17 04:00 10/20/17 07:24 Temperature 98.1 F Pulse Rate 81 75 Respiratory Rate 16 Blood Pressure 93/54 L Pulse Oximetry 97 Intake & Output 10/19/17 10/20/17 10/20/17 18:59 06:59 18:59 Intake Total 1400 / 1400 480 / 480 Output Total 2400 / 2400 1925 / 1925 Balance -1000 / -1000 -1445 / -1445 Weight 88.3 kg Intake: Oral 1400 / 1400 480 / 480 Output: Urine 2400 / 2400 1925 / 1925 Other: Post Void Residual 0 Results Procedures completed during hospitalization: None. Labs on day of discharge: Labs from last 24 hours 10/20/17 10/19/17 10/19/17 09:18 21:45 17:30 POC Glucose 115 H 168 H Urine Opiates Screen Neg Ur Barbiturates Screen Neg Ur Amphetamines Screen Neg U Benzodiazepines Scrn Neg Urine Cocaine Screen Neg U Cannabinoids Screen Neg - Impressions ITS Impressions Chest CTA 10/17/17 20:20 CONCLUSION: 1. No pulmonary embolus. 2. Resolving focal consolidation posteromedially of the right mid lung. 3. Mild to moderate fibroemphysematous changes are again noted. Chest X-Ray 10/17/17 20:20 CONCLUSION: No acute cardiopulmonary disease demonstrated. Mild compensated cardiomegaly. Head CT 10/17/17 20:20 CONCLUSION: Negative noncontrast head CT. . Discharge Plan - Discharge Disposition Patient Disposition: 01 Discharge Home - Discharge Condition Condition: Stable - Discharge Order Discharge Orders: Discharge Order (Routine); Ordered 10/20/17 Ordered By: Elena Cortés - Discharge Details Anticipated Discharge Date: 10/20/17 Discharge Comment: Discharge after seen by PT. - Physicians Team Primary Care Provider: UNKNOWN, Attending Provider: Elizabeth Macdonald
== END 2017-10-20 11:12 | disposition home or self-care (01) ==
LOC: NEPFCDU 20:00 → NEPC 20:00 → INTOOBSV 22:41 → NEDA 22:41 → NEPFCDU 10-18 00:36
PROVIDERS: ADMIT Hospitalist; ATTEND Hospitalist

== ENCOUNTER 2017-10-20 21:37 | Observation (INO) ==
--- NOTE | 2017-10-20 23:44 | ED ---
HPI General Chief Complaint: Chest Pain Stated Complaint: Evac/Chest Pain Time Seen by Provider: 10/20/17 23:40 Source: patient Mode of arrival: ambulatory Limitations: no limitations History of Present Illness MD complaint: chest pain Complete Quality Measures for STEMI Alert Patients STEMI Alert: No Duration: intermittent Pain location: substernal Severity: moderate Severity scale (1-10): 4 Quality: tightness and heaviness Pain radiation: none Relieving factors: nothing Exacerbating factors: nothing Treatments prior to arrival chest pain: none Related Data Home Medications Medication Instructions Recorded Confirmed gabapentin 100 mg PO TID 09/11/17 10/27/17 levetiracetam 1,000 mg PO Q12H 09/11/17 10/27/17 metoprolol succinate 50 mg PO DAILY 09/11/17 10/27/17 furosemide 20 mg PO DAILY 10/27/17 10/27/17 Previous Rx's Medication Instructions Recorded clopidogrel [Plavix] 75 mg PO DAILY #30 tab 09/19/17 dabigatran etexilate [Pradaxa] 150 mg PO BID #60 cap 09/20/17 potassium chloride 10 meq PO BID #60 cap 10/20/17 Allergies Allergy/AdvReac Type Severity Reaction Status Date / Time cefazolin AdvReac Severe Hives Verified 10/26/17 23:34 nitroglycerin AdvReac Intermediate Nausea/Vomi Verified 10/26/17 23:34 ting MRI PRECAUTION AdvReac Severe Unresponsiv Uncoded 09/12/17 10:00 e Review of Systems ROS: all other systems reviewed are negative PMFSH History History Provided By: Patient Medical History Medical History Afib (Acute) CAD (coronary artery disease) (Acute) CHF (congestive heart failure) (Acute) Epilepsy (Acute) Hx of blood clots (Acute) Hypercholesteremia (Acute) Surgical History Surgical History Hx of coronary artery bypass graft (Acute) Social History Social History Substance History: No History of Abuse Second Hand Smoke Exposure: No Smoking Status: Current every day smoker Tobacco Type: Cigarettes How Often Do You Have a Drink Containing Alcohol: 2 to 3 times a week Recent Travel in [place] within the Last 8 Weeks: No Recent Out of Country Travel within the Last 8 Weeks: No Immunization History Tetanus Immunization: Unsure Hx Influenza Vaccine This Season: No Exam Narrative Exam Narrative: GENERAL: Well-nourished, well-developed patient in no apparent distress. SKIN: Warm and dry. HEAD: Atraumatic. Normocephalic. EYES: Pupils equal and round. No scleral icterus. No injection or drainage. ENT: No nasal bleeding or discharge. Mucous membranes pink and moist. NECK: Trachea midline. No JVD. CARDIOVASCULAR: Regular rate and rhythm. no rubs or gallops RESPIRATORY: No accessory muscle use. Clear to auscultation. Breath sounds equal bilaterally. GASTROINTESTINAL: Abdomen soft, non-tender, nondistended. No rebound or guarding MUSCULOSKELETAL: Extremities without clubbing, cyanosis, or edema. No obvious deformities. NEUROLOGICAL: Awake and alert. No obvious cranial nerve deficits. Motor grossly within normal limits. Five out of 5 muscle strength in the arms and legs. Normal speech. PSYCHIATRIC: Appropriate mood and affect; insight and judgment normal. Course Initial Documented Vital Signs Temperature 98.9 F 10/20/17 22:20 Pulse Rate 102 H 10/20/17 22:20 Respiratory Rate 18 10/20/17 22:20 Blood Pressure 105/71 10/20/17 22:20 Pulse Oximetry 100 10/20/17 22:20 Last Documented Vital Signs Temperature 97.6 F 10/21/17 08:00 Pulse Rate 98 H 10/21/17 09:00 Respiratory Rate 18 10/21/17 08:00 Blood Pressure 95/53 L 10/21/17 08:00 Pulse Oximetry 96 10/21/17 08:00 Medical Decision Making Differential Diagnosis Differential Diagnosis: STEMI versus non-STEMI versus pulmonary embolus Medical Records Medical records reviewed: Yes I reviewed the patient's medical records. Lab Data Result diagrams: 10/20/17 23:50 10/20/17 23:50 Lab Results 10/20/17 10/20/17 10/20/17 Range/Units 23:50 23:50 23:50 WBC 7.2 (4.0-11.0) th/mm3 RBC 3.64 L (4.50-5.90) mil/mm3 Hgb 11.2 L (13.0-17.0) gm/dL Hct 32.8 L (39.0-51.0) % MCV 90.3 (80.0-100.0) fL MCH 30.7 (27.0-34.0) pg MCHC 34.0 (32.0-36.0) % RDW 18.7 H (11.6-17.2) % Plt Count 86 L (150-450) th/mm3 MPV 8.7 (7.0-11.0) fL Prelim Diff (Auto) Slide review pending Neut % (Auto) 61.2 (16.0-70.0) % Lymph % (Auto) 28.0 (9.0-44.0) % [place] % (Auto) 6.9 (0.0-8.0) % Eos % (Auto) 3.5 (0.0-4.0) % Baso % (Auto) 0.4 (0.0-2.0) % Neut # (Auto) 4.4 (1.8-7.7) th/mm3 Lymph # (Auto) 2.0 (1.0-4.8) th/mm3 [place] # (Auto) 0.5 (0.0-0.9) th/mm3 Eos # (Auto) 0.3 (0.0-0.4) th/mm3 Baso # (Auto) 0.0 (0.0-0.2) th/mm3 WBC Differential . Diff Scan Auto diff confirmed Differential Comment . Platelet Estimate Low L (Normal) Platelet Morphology Normal (Normal) RBC Morphology Normal (Normal) PT 10.8 (9.8-11.6) sec INR 1.1 Ratio APTT 27.0 (24.3-30.1) sec Sodium 129 L D (136-145) meq/L Potassium 3.4 L (3.5-5.1) meq/L Chloride 92 L D (98-107) meq/L Carbon Dioxide 26.4 (21.0-32.0) meq/L Anion Gap 11 (5-15) meq/L BUN 11 (7-18) mg/dL Creatinine 1.08 (0.60-1.30) mg/dL Estimated GFR 71 L (>89) mL/min Random Glucose 117 H (74-106) mg/dL Calcium 7.7 L D (8.5-10.1) mg/dL Total Bilirubin 0.3 (0.2-1.0) mg/dL AST 115 H (15-37) U/L ALT 47 (12-78) U/L Alkaline Phosphatase 256 H (45-117) U/L Total Creatine Kinase 62 (39-308) U/L Troponin I Less than 0.02 L (0.02-0.05) ng/mL B-Natriuretic Peptide (0-100) pg/mL Total Protein 7.0 (6.4-8.2) g/dL Albumin 2.9 L (3.4-5.0) g/dL Lipase 161 (73-393) U/L 10/20/17 10/21/17 Range/Units 23:50 03:15 WBC (4.0-11.0) th/mm3 RBC (4.50-5.90) mil/mm3 Hgb (13.0-17.0) gm/dL Hct (39.0-51.0) % MCV (80.0-100.0) fL MCH (27.0-34.0) pg MCHC (32.0-36.0) % RDW (11.6-17.2) % Plt Count (150-450) th/mm3 MPV (7.0-11.0) fL Prelim Diff (Auto) Neut % (Auto) (16.0-70.0) % Lymph % (Auto) (9.0-44.0) % [place] % (Auto) (0.0-8.0) % Eos % (Auto) (0.0-4.0) % Baso % (Auto) (0.0-2.0) % Neut # (Auto) (1.8-7.7) th/mm3 Lymph # (Auto) (1.0-4.8) th/mm3 [place] # (Auto) (0.0-0.9) th/mm3 Eos # (Auto) (0.0-0.4) th/mm3 Baso # (Auto) (0.0-0.2) th/mm3 WBC Differential Diff Scan Differential Comment Platelet Estimate (Normal) Platelet Morphology (Normal) RBC Morphology (Normal) PT (9.8-11.6) sec INR Ratio APTT (24.3-30.1) sec Sodium (136-145) meq/L Potassium (3.5-5.1) meq/L Chloride (98-107) meq/L Carbon Dioxide (21.0-32.0) meq/L Anion Gap (5-15) meq/L BUN (7-18) mg/dL Creatinine (0.60-1.30) mg/dL Estimated GFR (>89) mL/min Random Glucose (74-106) mg/dL Calcium (8.5-10.1) mg/dL Total Bilirubin (0.2-1.0) mg/dL AST (15-37) U/L ALT (12-78) U/L Alkaline Phosphatase (45-117) U/L Total Creatine Kinase 88 (39-308) U/L Troponin I Less than 0.02 L (0.02-0.05) ng/mL B-Natriuretic Peptide 37 (0-100) pg/mL Total Protein (6.4-8.2) g/dL Albumin (3.4-5.0) g/dL Lipase (73-393) U/L Imaging Data Radiologist's impression: Chest X-Ray 10/20/17 23:40 CONCLUSION: Clear lungs. Chest CTA 10/21/17 00:01 CONCLUSION: 1. No evidence for pulmonary embolism. 2. Scattered areas of parenchymal scarring, and emphysema. ECG Data EKG Prior to Arrival: No Attestation: I personally reviewed and interpreted this ECG as follows: Prior ECG tracings: not available for review Interpretation: Normal sinus rhythm, 92 bpm, left atrial enlargement, nonspecific T wave abnormality, incomplete left bundle branch block pattern Discharge Plan Discharge Disposition Patient Disposition: 01 Discharge Home Discharge Condition Condition: Stable Discharge Order Discharge Orders: Discharge Order (Routine); Ordered 10/21/17 Ordered By: Alejandro Perez Discharge Details Anticipated Discharge Date: 10/21/17 Diagnosis: Chest pain Physicians Team ED Provider: Shaun Moffett Primary Care Provider: Patricia James Attending Provider: Anup Kessler Status ED Status: Left Department Discharge Information Discharge Date/Time: 10/21/17 04:18
[2017-10-21 00:21] LABS: Baso % (Auto) 0.4 % (0.0-2.0); Eos # (Auto) 0.3 th/mm3 (0.0-0.4); Eos % (Auto) 3.5 % (0.0-4.0); Hematocrit 32.8 % (39.0-51.0); Hemoglobin 11.2 gm/dL (13.0-17.0); Mean Corpuscular Hemoglobin 30.7 pg (27.0-34.0); Mean Corpuscular Volume 90.3 fL (80.0-100.0); Mean Platelet Volume 8.7 fL (7.0-11.0); Mono # (Auto) 0.5 th/mm3 (0.0-0.9); Mono % (Auto) 6.9 % (0.0-8.0); Neut # (Auto) 4.4 th/mm3 (1.8-7.7); Neut % (Auto) 61.2 % (16.0-70.0); Platelet Count 86 th/mm3 (150-450); Red Blood Count 3.64 mil/mm3 (4.50-5.90); Red Cell Distribution Width 18.7 % (11.6-17.2); White Blood Count 7.2 th/mm3 (4.0-11.0)
--- NOTE | 2017-10-21 00:24 | CT ---
EXAM DATE: 10/21/2017 12:18 AM EDT AGE/SEX: 57 years / Male INDICATIONS: Chest pain. CLINICAL DATA: This is the patient's initial encounter. Patient reports that signs and symptoms have been present for 1 day and indicates a pain score of 5/10. MEDICAL/SURGICAL HISTORY: Cardiovascular disease. Deep venous thrombosis. Pacemaker. CABG. RADIATION DOSE: 10.91 CTDI (mGy) COMPARISON: C, CHEST 1V SINGLE AP, 10/20/2017. [facility], CTA PULMONARY W CONTRAST W 3D, 10/17/2017. . TECHNIQUE: Volumetric scanning was performed using a multi-row detector CT scanner during bolus infu maryellen of 75 ml Omnipaque 350 (iohexol) nonionic water-soluble contrast as a single exam dose. The marlin a was post processed with a variety of visualization algorithms including full volume maximum intensi ty projection and sliding thin slab reformation. Using automated exposure control and adjustment of the mA and/or kV according to patient size, radiation dose was kept as low as reasonably achievable t o obtain optimal diagnostic quality images. DICOM format image data is available electronically for review and comparison. FINDINGS: The patient is status post CABG. There is no evidence for pulmonary embolism. No pleural or pericardi al effusions are seen. There is no adenopathy. Moderate apical emphysematous changes are noted. There is parenchymal opacity in the right upper lobe posteriorly as well as the left upper lobe, unchanged . Small fat-containing diaphragmatic hernias bilaterally. CONCLUSION: 1. No evidence for pulmonary embolism. 2. Scattered areas of parenchymal scarring, and emphysema. Electronically signed by: Cheikh Stevens MD 10/21/2017 12:23 AM EDT
--- NOTE | 2017-10-21 00:25 | XR ---
EXAM DATE: 10/21/2017 12:15 AM EDT AGE/SEX: 57 years / Male INDICATIONS: Chest pain. CLINICAL DATA: This is the patient's initial encounter. Patient reports that signs and symptoms have been present for 1 day and indicates a pain score of 8/10. MEDICAL/SURGICAL HISTORY: . Congestive heart failure. Hypercholesterolemia. Cataracts. Epileps y. AFib. HTN. COPD. Dyspnea. Diabetes. Liver disease. Anticoagulant therapy . Pacemaker. . Coronary artery stent. CABG . Ablation. Cardiac cath. Joint replacement x2. COMPARISON: [facility] [place], CTA PULMONARY W CONTRAST W 3D, 10/17/2017. . FINDINGS: A single AP view of the chest demonstrates the lungs to be symmetrically aerated without evidence of mass, infiltrate or effusion. Cardiomegaly. Osseous structures are intact median sternotomy wires an d a single lead pacer/ICD device from a right subclavian transvenous approach noted.. CONCLUSION: Clear lungs. Electronically signed by: Cheikh Stevens MD 10/21/2017 12:23 AM EDT
[2017-10-21 00:32] LABS: INR 1.1 Ratio; Prothrombin Time 10.8 sec (9.8-11.6)
[2017-10-21 00:50] LABS: Platelet Morphology Normal (Normal); RBC Morphology Normal (Normal)
[2017-10-21 01:03] LABS: Alanine Aminotransferase 47 U/L (12-78); Albumin 2.9 g/dL (3.4-5.0); Alkaline Phosphatase 256 U/L (45-117); Anion Gap 11 meq/L (5-15); Aspartate Aminotransferase 115 U/L (15-37); Blood Urea Nitrogen 11 mg/dL (7-18); Calcium 7.7 mg/dL (8.5-10.1); Carbon Dioxide 26.4 meq/L (21.0-32.0); Chloride 92 meq/L (98-107); Glomerular Filtration Rate 71 mL/min (>89); Glucose,Random 117 mg/dL (74-106); Lipase 161 U/L (73-393); Potassium 3.4 meq/L (3.5-5.1); Sodium 129 meq/L (136-145)
[2017-10-21 01:12] LABS: Creatine Kinase 62 U/L (39-308)
[2017-10-21] MEDS ORDERED: Sod Chloride 0.9% Inj 1,000 ML IV.CONT SCH (02:45)
[2017-10-21 04:12] LABS: Creatine Kinase 88 U/L (39-308)
[2017-10-21 09:01] VITALS: BP 95/53; RESP 18; TEMP 97.6; O2SAT 96
[2017-10-21 10:12] VITALS: PULSE 98
--- NOTE | 2017-10-21 10:20 | P.HPCA ---
History of Present Illness Primary Care Physician: Patricia James MD Chief Complaint: Hands and feet numb and tingly History of Present Illness: This is a 57-year-old male that presents to ED after being discharged yesterday with a similar complaint of tingling and numbness in his hands and feet. States his been having this issue for about 4 months. Has not followed up with his PCP for this. Cannot recall last time he saw his primary care physician. Cannot recall last time he saw was wet chemistry analyst which is Dr. Beaulieu. Patient also complains of chest pain but states is nothing unusual. He gets same type of discomfort all the time. His main concern were his numbness/tingling in his hands and feet. Denying shortness of breath, nausea, or diaphoresis. Patient has known CAD. Most recent heart cath at this facility was in August 2017 revealing widely patent left main stent and mild to moderate stenosis of ostial LAD with an EF of 25-30%. Also showed severe mitral regurgitation. - Diagnosis (1) Tingling in extremities (2) Numbness and tingling of both lower extremities (3) Chest pain Review of Systems General: Patient denies fevers, chills, and recent travel. HEENT: Patient denies headache, sore throat, difficulty swallowing. Cardiovascular: Has the chest discomfort as mentioned above. Denies sensation of heart beating rapidly or irregularly. No syncope. Denies diaphoresis. Respiratory: Denies shortness of breath or inspirational chest discomfort. Denies coughing wheezing or hemoptysis. GI: Patient denies nausea, vomiting, diarrhea, abdominal pain, bloody stools. Musculoskeletal: Patient denies joint pain or edema. Denies calf pain or edema. Neurovascular: Numbness and tingling in hands and feet. patient denies weakness in extremities. Denies headache. Endocrine: Denies polyuria and polydipsia. Hematologic: Denies easy bruising. Skin: Denies rash or itching. PMFSH - History History Provided By: Patient - Medical History Medical History: Medical History (Last Reviewed 10/21/17 @ 02:00 by Shaun Moffett) Afib CAD (coronary artery disease) CHF (congestive heart failure) Epilepsy Hx of blood clots Hypercholesteremia - Surgical History Surgical History: Surgical History (Last Reviewed 10/21/17 @ 02:00 by Shaun Moffett) Hx of coronary artery bypass graft - Tobacco History Second Hand Smoke Exposure: No Tobacco Use In Past 30 Days: Yes Smoking Status: Former smoker Tobacco Type: Cigarettes - Alcohol History How Often Do You Have a Drink Containing Alcohol: Unable to Obtain - Substance Use History Substance History: No History of Abuse - Immunization History Tetanus Immunization: Unsure Hx Influenza Vaccine This Season: No Medications and Allergies Active Medications: Active Medications Sodium Chloride (Ns Inj) 1,000 mls @ 100 mls/hr IV.CONT .Q10H SILVERIO Last Infusion: 10/21/17 06:53 Dose: Infused Nitroglycerin (Nitrostat Sl) 0.4 mg SL Q5M PRN PRN Reason: CHEST PAIN Ondansetron HCl (Zofran Inj) 4 mg IV.PUSH Q6H PRN PRN Reason: NAUSEA Last Admin: 10/21/17 06:50 Dose: 4 mg Sodium Chloride (Ns Flush) 2 ml IV.FLUSH UNSCH PRN PRN Reason: FLUSH AFTER USING IV ACCESS Allergies Allergy/AdvReac Type Severity Reaction Status Date / Time cefazolin AdvReac Severe Hives Verified 10/17/17 20:07 nitroglycerin AdvReac Intermediate Nausea/Vomi Verified 10/17/17 20:07 ting MRI PRECAUTION AdvReac Severe Unresponsiv Uncoded 09/12/17 10:00 e Home Medications Medication Instructions Recorded Confirmed Type gabapentin 100 mg PO TID 09/11/17 10/20/17 History levetiracetam 1,000 mg PO Q12H 09/11/17 10/20/17 History metoprolol succinate 50 mg PO DAILY 09/11/17 10/20/17 History Exam Vital signs: Vital Signs 10/20/17 22:20 10/20/17 23:46 10/21/17 03:47 Temperature 98.9 F Pulse Rate 102 H Respiratory Rate 18 20 Blood Pressure 105/71 Pulse Oximetry 100 99 99 10/21/17 04:00 10/21/17 05:45 10/21/17 08:00 Temperature 98.5 F 97.6 F Pulse Rate 103 H 102 H 97 H Respiratory Rate 17 18 Blood Pressure 112/64 95/53 L Pulse Oximetry 98 96 96 Intake & Output 10/20/17 10/21/17 10/21/17 18:59 06:59 18:59 Intake Total 1000 / 1000 Balance 1000 / 1000 Intake: IV 1000 / 1000 NS Inj 1,000 ML @ 100 mls/hr IV 1000 / 1000 .CONT .Q10H [facility] Rx#:[id number] Narrative: GENERAL: This is a well-nourished, well-developed patient, in no apparent distress. Patient speaks in clear complete sentences. Patient is pleasant. HEENT: Head is atraumatic and normocephalic. Neck is supple without lymphadenopathy and trachea is midline. No JVD or carotid bruits. CARDIOVASCULAR: Grade 3 systolic murmur left sternal border. Regular rate and rhythm without gallops, or rubs. RESPIRATORY: Clear to auscultation. Breath sounds equal bilaterally. No wheezes , rales, or rhonchi. Chest wall is nontender. No use of accessory muscles. GASTROINTESTINAL: Abdomen is nontender, nondistended. Abdomen soft. No obvious pulsatile mass or bruit. No CVA tenderness. Strong femoral pulses bilaterally. Normal bowel sounds in all quadrants. MUSCULOSKELETAL: Patient is moving upper and lower extremities freely. No calf tenderness or edema, no Homans sign. Strong pulses in upper and lower extremities. NEUROLOGICAL: Patient is alert and oriented. Cranial nerves 2-12 are grossly intact. No focal deficits and speech is clear. SKIN: No rash and turgor is normal. Results 10/20/17 23:50 10/20/17 23:50 Cardiac Enzymes 10/20/17 10/20/17 10/21/17 Range/Units 23:50 23:50 03:15 AST 115 H (15-37) U/L Troponin I Less than 0.02 L Less than 0.02 L (0.02-0.05) ng/mL B-Natriuretic Peptide 37 (0-100) pg/mL Coagulation 10/20/17 10/20/17 Range/Units 23:50 23:50 PT 10.8 (9.8-11.6) sec APTT 27.0 (24.3-30.1) sec B-Natriuretic Peptide 37 (0-100) pg/mL CBC 10/20/17 Range/Units 23:50 WBC 7.2 (4.0-11.0) th/mm3 RBC 3.64 L (4.50-5.90) mil/mm3 Hgb 11.2 L (13.0-17.0) gm/dL Hct 32.8 L (39.0-51.0) % Plt Count 86 L (150-450) th/mm3 Neut # (Auto) 4.4 (1.8-7.7) th/mm3 Lymph # (Auto) 2.0 (1.0-4.8) th/mm3 [place] # (Auto) 0.5 (0.0-0.9) th/mm3 Eos # (Auto) 0.3 (0.0-0.4) th/mm3 Baso # (Auto) 0.0 (0.0-0.2) th/mm3 Comprehensive Metabolic Panel 10/20/17 Range/Units 23:50 Sodium 129 L D (136-145) meq/L Potassium 3.4 L (3.5-5.1) meq/L Chloride 92 L D (98-107) meq/L Carbon Dioxide 26.4 (21.0-32.0) meq/L BUN 11 (7-18) mg/dL Creatinine 1.08 (0.60-1.30) mg/dL Calcium 7.7 L D (8.5-10.1) mg/dL AST 115 H (15-37) U/L ALT 47 (12-78) U/L Alkaline Phosphatase 256 H (45-117) U/L Total Protein 7.0 (6.4-8.2) g/dL Albumin 2.9 L (3.4-5.0) g/dL Intake and Output 10/20/17 10/21/17 10/21/17 22:59 06:59 14:59 Intake Total 1000 / 1000 Balance 1000 / 1000 Intake: IV 1000 / 1000 NS Inj 1,000 ML @ 100 mls/hr IV 1000 / 1000 .CONT .Q10H [facility] Rx#:[id number] EKG interpretations - EKG EKG shows: sinus rhythm (EKGs are sinus rhythm with nonspecific T-wave changes.) Caprini VTE Risk Assessment Caprini VTE Risk Assessment: No/Low Risk (score <= 1) Caprini Risk Assessment Model: Point Value = 1 Point Value = 2 Point Value = 3 Point Value = 5 Age 41-60 Minor surgery BMI > 25 kg/m2 Swollen legs Varicose veins or History of unexplained or recurrent spontaneous Oral contraceptives or hormone replacement Sepsis (< 1 month) Serious lung disease, including pneumonia (< 1 month) Abnormal pulmonary function Acute myocardial infarction Congestive heart failure (< 1 month) History of inflammatory bowel disease Medical patient at bed rest Age 61-74 Arthroscopic surgery Major open surgery (> 45 min) Laparoscopic surgery (> 45 min) Malignancy Confined to bed (> 72 hours) Immobilizing plaster cast Central venous access Age >= 75 History of VTE Family history of VTE Factor V Leiden Prothrombin [id number] Lupus anticoagulant Anticardiolipin antibodies Elevated serum homocysteine Heparin-induced thrombocytopenia Other congenital or acquired thrombophilia Stroke (< 1 month) Elective arthroplasty Hip, pelvis, or leg fracture Acute spinal cord injury (< 1 month) Prophylaxis Regimen: Total Risk Factor Score Risk Level Prophylaxis Regimen 0-1 Low Early ambulation 2 Moderate Order ONE of the following: *Sequential Compression Device (SCD) *Heparin 5000 units SQ BID 3-4 Higher Order ONE of the following medications: *Heparin 5000 units SQ TID *Enoxaparin/Lovenox 40 mg SQ daily (WT < 150 kg, CrCl > 30 mL/min) *Enoxaparin/Lovenox 30 mg SQ daily (WT < 150 kg, CrCl > 10-29 mL/min) *Enoxaparin/Lovenox 30 mg SQ BID (WT < 150 kg, CrCl > 30 mL/min) AND/OR *Sequential Compression Device (SCD) 5 or more Highest Order ONE of the following medications: *Heparin 5000 units SQ TID (Preferred with Epidurals) *Enoxaparin/Lovenox 40 mg SQ daily (WT < 150 kg, CrCl > 30 mL/min) *Enoxaparin/Lovenox 30 mg SQ daily (WT < 150 kg, CrCl > 10-29 mL/min) *Enoxaparin/Lovenox 30 mg SQ BID (WT < 150 kg, CrCl > 30 mL/min) AND *Sequential Compression Device (SCD) Assessment and Plan - Assessment (1) Tingling in extremities Code(s): R20.2 - Paresthesia of skin Status: Acute (2) Numbness and tingling of both lower extremities Code(s): R20.0 - Anesthesia of skin; R20.2 - Paresthesia of skin Status: Acute (3) Chest pain Code(s): R07.9 - Chest pain, unspecified Status: Acute - Plan * Paresthesias of extremities: Patient to follow-up with PCP. * Chest pain: Patient to follow-up with wet chemistry analyst. * Tobacco abuse: Patient counseled on importance of smoking cessation. Discussed home health with the patient, he is agreeable to this. Spoke with case management. States that this was already arranged yesterday. Patient today is unfortunately will not give current address home health. States that he is not homeless. Case management will be given the patient a card for the home health agency to call once he is willing to give a address. Patient stable at this time. He is agreeable to this plan. H&P: Quality - VTE Deep Vein Thrombosis/Pulmonary Embolism Present on Admission: No (3) Chest pain Qualifiers: Chest pain type: unspecified Qualified Code(s): R07.9 - Chest pain, unspecified
[2017-10-21] MEDS ORDERED: Potassium Chloride 10 MEQ ER Capsule PO SCH (10:30)
[2017-10-21] MEDS ORDERED: Furosemide 20 MG Tablet PO SCH (10:30)
[2017-10-21] MEDS ORDERED: levETIRAcetam 500 MG Tablet PO SCH (10:45)
[2017-10-21] MEDS ORDERED: Gabapentin 100 MG Capsule PO SCH (13:00)
--- NOTE | 2017-10-22 08:50 | ECG ---
Date Performed: 10/21/2017 Time Performed: 06:43:42 PTAGE: 57 years EKG: Sinus rhythm POSSIBLE RIGHT ATRIAL ENLARGEMENT MODERATE T-WAVE ABNORMALITY, CONSIDER LATERAL ISCHEMIA ABNORMAL EC G NO PREVIOUS TRACING DOCTOR: Anup Kessler Interpretating Date/Time 10/22/2017 08:49:40
--- NOTE | 2017-10-22 08:51 | ECG ---
Date Performed: 10/21/2017 Time Performed: 03:29:50 PTAGE: 57 years EKG: SINUS TACHYCARDIA MODERATE T-WAVE ABNORMALITY, CONSIDER LATERAL ISCHEMIA ABNORMAL ECG PREVIOUS TRACING : 10/17/2017 20.09 Since previous tracing, no significant change noted DOCTOR: Anup Kessler Interpretating Date/Time 10/22/2017 08:50:35
--- NOTE | 2017-10-22 08:52 | ECG ---
Date Performed: 10/20/2017 Time Performed: 22:08:14 PTAGE: 57 years EKG: Sinus rhythm LEFT ATRIAL ENLARGEMENT MODERATE INTRAVENTRICULAR CONDUCTION DELAY NONSPECIFIC T-WAVE ABNORMALITY AB NORMAL ECG NO PREVIOUS TRACING DOCTOR: Anup Kessler Interpretating Date/Time 10/22/2017 08:51:00
== END 2017-10-21 12:17 | disposition home or self-care (01) ==
LOC: NEDA 21:37 → NEPC 21:37 → NEPFCDU 21:37
PROVIDERS: ADMIT Internal Medicine Cardiovascular Disease; ATTEND Internal Medicine Cardiovascular Disease
DX: Z79.02 Long term (current) use of antithrombotics/antiplatelets; Z86.718 Personal history of other venous thrombosis and embolism; F17.210 Nicotine dependence, cigarettes, uncomplicated; Z95.1 Presence of aortocoronary bypass graft; I48.91 Unspecified atrial fibrillation; E78.00 Pure hypercholesterolemia, unspecified; I34.0 Nonrheumatic mitral (valve) insufficiency; I25.10 Atherosclerotic heart disease of native coronary artery without angina pectoris; I50.9 Heart failure, unspecified; G40.909 Epilepsy, unspecified, not intractable, without status epilepticus; R07.9 Chest pain, unspecified

== ENCOUNTER 2017-10-26 23:30 | Observation (INO) ==
--- NOTE | 2017-10-27 00:16 | ED ---
HPI General Chief complaint: Chest Pain Stated complaint: Chest Pain Time Seen by Provider: 10/26/17 23:49 Source: patient History of Present Illness HPI narrative: The patient is a 57 year old male who presents to the [facility] emergency department with a history of chest pain that he reports is sharp in character and radiates up into his neck that began prior to arrival. He reports that it is associated with shortness of breath. He reports that he has had worsening lower extremity edema also associated with this. He reports that he was recently started on Lasix at 20 mg and has been taking it as prescribed, however he is new blood thinner, that he cannot recall the name of, he has not been taking for the last 2 days as he lifted at his brother's house. The patient has a prior history of coronary artery disease. The patient has been to this facility on multiple occasions over the last month related to various complaints. The patient was recently admitted to the chest pain center. The patient was admitted to the chest pain center on October 21. It appears that the patient had serial cardiac enzymes to rule him out, however no stress test as he recently had a cardiac catheterization on August 2017 that revealed widely patent left main stent and mild to moderate stenosis of ostial LAD with an ejection fraction of 25-30% with severe mitral regurgitation. According to the record, the patient is followed by Dr. Beaulieu for his cardiac care. The patient reports that he has not seen his chain maker loom control in the last 6 months as he has trouble with transportation. He reports that he has not seen his primary care physician in the last year due to transportation problems. On review of systems otherwise, the patient denies having any known fevers. He reports having nausea and vomiting 1 prior to arrival. He reports that he has been drinking alcohol today and did have a 6 pack of beer. He denies having any worsening cough or congestion, abdominal pain, diarrhea, urinary symptoms, or neurologic symptoms. Related Data Home Medications Medication Instructions Recorded Confirmed gabapentin 100 mg PO TID 09/11/17 10/26/17 levetiracetam 1,000 mg PO Q12H 09/11/17 10/26/17 metoprolol succinate 50 mg PO DAILY 09/11/17 10/26/17 Previous Rx's Medication Instructions Recorded clopidogrel [Plavix] 75 mg PO DAILY #30 tab 09/19/17 dabigatran etexilate [Pradaxa] 150 mg PO BID #60 cap 09/20/17 furosemide 20 mg PO BID #60 tab 10/20/17 potassium chloride 10 meq PO BID #60 cap 10/20/17 Allergies Allergy/AdvReac Type Severity Reaction Status Date / Time cefazolin AdvReac Severe Hives Verified 10/26/17 23:34 nitroglycerin AdvReac Intermediate Nausea/Vomi Verified 10/26/17 23:34 ting MRI PRECAUTION AdvReac Severe Unresponsiv Uncoded 09/12/17 10:00 e Review of Systems ROS: all other systems reviewed are negative (Except for that which was mentioned in the HPI) [facility] Medical History Medical History Afib (Acute) CAD (coronary artery disease) (Acute) CHF (congestive heart failure) (Acute) Epilepsy (Acute) Hx of blood clots (Acute) Hypercholesteremia (Acute) Surgical History Surgical History Hx of coronary artery bypass graft (Acute) Social History Social History Substance History: No History of Abuse Second Hand Smoke Exposure: No Smoking Status: Current every day smoker Tobacco Type: Cigarettes How Often Do You Have a Drink Containing Alcohol: 4 or more times a week Recent Travel in [facility] within the Last 8 Weeks: No Recent Out of Country Travel within the Last 8 Weeks: No Immunization History Tetanus Immunization: Unsure Hx Influenza Vaccine This Season: No Exam Const General: cooperative, no acute distress and well developed Nutritional Appearance: overweight Orientation: alert, awake and oriented x3 HENMT Head: normocephalic and atraumatic Nose: no nasal discharge and no epistaxis Mouth: moist mucous membranes Throat: posterior oropharynx normal and uvula midline Eyes Sclera: normal sclerae Pupils: PERRL Neck Neck: no meningeal signs, trachea midline and no JVD Resp Effort & Inspection: no use of accessory muscles Auscultation: clear to auscultation bilaterally Cardio Rate: tachycardic (Sinus tachycardia in the low 100s, no pulse deficits to the extremities on simultaneous auscultation and palpation of his radial artery.) Rhythm: regular rhythm Heart Sounds: murmur (2/6 systolic murmur, best audible at the left sternal border, no gallops or rubs.) systolic GI Inspection: non-distended Palpation: soft, no hepatosplenomegaly and nontender Auscultation: normal bowel sounds Back/Spine/Pelvis Back: no CVA tenderness Skin General: dry skin (warm) Neuro General: alert, awake and oriented x3 Cranial Nerves: other (No facial asymmetry.) Speech: speech normal Motor: no movement abnormalities noted Extrem General: normal to inspection (No calf tenderness on palpation.), no clubbing, no cyanosis and edema (2+ pitting edema bilateral lower extremities.) Laterality : bilaterally Psych Mood: congruent mood Affect: normal affect Judgment: limited Course Initial Documented Vital Signs Temperature 98.7 F 10/26/17 23:34 Pulse Rate 112 H 10/26/17 23:34 Respiratory Rate 22 10/26/17 23:34 Blood Pressure 143/84 H 10/26/17 23:34 Pulse Oximetry 97 10/26/17 23:34 Last Documented Vital Signs Temperature 98.7 F 10/26/17 23:34 Pulse Rate 110 H 10/27/17 03:52 Respiratory Rate 18 10/27/17 03:52 Blood Pressure 107/52 L 10/27/17 03:52 Pulse Oximetry 96 10/27/17 03:52 Medical Decision Making MDM Narrative Medical decision making narrative: During the course of the patient's emergency department visit, the patient's history, examination, and differential diagnosis were reviewed with the patient. The patient was placed on a monitor and storage bin tender with oximetry and frequent blood pressure monitoring. The patient had IV access obtained and blood work sent for analysis. For diagnostic evaluation was started regarding the patient's reported sharp chest pain, shortness of breath. The patient has not been compliant with his anticoagulation and has a history of DVT, therefore PE is in the differential. Patient also has a history of coronary artery disease, acute coronary syndrome is in the differential. The patient was initially provided aspirin 324 mg p.o. 1. Nitroglycerin sublingual every 5 minutes 3 as needed chest pain, nitroglycerin 1 inch the chest wall. Review of the electronic medical record reveals that when the patient was seen in the chest pain center recently on October 21, the apparently attempted to get home health for the patient, however he was not able to provide a home address. It does not appear that the patient underwent a stress test during that chest pain center admission. Diagnostic studies reveal a white count of 5.4, platelets 123, monocytosis at 12 , hemoglobin 11.4, PT PTT unremarkable, chemistry is remarkable for a troponin I of less than 0.02, glucose 166, GFR of 86, CK-MB 5.9, calcium 7.5, alk phos 257, alcohol level is 323. A CTA to rule out PE due to the patient's medication noncompliance revealed no evidence for pulmonary embolism, parenchymal density in the posterior right upper lobe that is likely scarring, 5 mm nodule seen within the right middle lobe, emphysema without infiltrate. The patient will undergo a delta troponin. The patient's troponin on repeat evaluation has increased from less than 0.02 to 0.02. The patient does have a history of coronary artery disease, as well as medication noncompliance the patient will be admitted to the chest pain center for continued rule out serial cardiac enzyme protocol. The patient's repeat EKG shows a sinus tachycardia rate of 120, QRS duration 113 ms, QTC [address] segment elevation is noted. As the patient's BNP is within normal limits and the patient is noted to be tachycardic, the patient will be given a fluid bolus of normal saline 500 ml. He has no signs of withdrawal on reexamination. The patient's results were discussed with the patient, including the plan of care. I explained that further testing and/ or monitoring is indicated based on the patient's history, examination, and/ or laboratory findings. Therefore, I recommended admission for additional evaluation. The patient expressed understanding and was agreeable with this plan. The patient was admitted to the hospital in stable condition and sent to a bed under the care of the [facility]. Medical Screen Exam Complete: Yes Emergency Medical Condition: Yes Differential Diagnosis Differential Diagnosis: Acute coronary syndrome, versus pulmonary embolism, versus pneumonia, versus pneumothorax, versus congestive heart failure, versus malingering, versus medication noncompliance Medical Records Medical records reviewed: Yes I reviewed the patient's medical records. Lab Data Lab results reviewed: Yes I reviewed the patient's lab results. Result diagrams: 10/27/17 00:31 10/27/17 00:31 Lab Results 10/27/17 10/27/17 10/27/17 Range/Units 00:31 00:31 00:31 WBC 5.4 (4.0-11.0) th/mm3 RBC 3.84 L (4.50-5.90) mil/mm3 Hgb 11.4 L (13.0-17.0) gm/dL Hct 35.3 L (39.0-51.0) % MCV 92.0 (80.0-100.0) fL MCH 29.7 (27.0-34.0) pg MCHC 32.3 (32.0-36.0) % RDW 19.4 H (11.6-17.2) % Plt Count 123 L D (150-450) th/mm3 MPV 7.9 (7.0-11.0) fL Neut % (Auto) 35.4 (16.0-70.0) % Lymph % (Auto) 49.1 H (9.0-44.0) % [place] % (Auto) 12.0 H (0.0-8.0) % Eos % (Auto) 2.3 (0.0-4.0) % Baso % (Auto) 1.2 (0.0-2.0) % Neut # (Auto) 1.9 (1.8-7.7) th/mm3 Lymph # (Auto) 2.6 (1.0-4.8) th/mm3 [place] # (Auto) 0.6 (0.0-0.9) th/mm3 Eos # (Auto) 0.1 (0.0-0.4) th/mm3 Baso # (Auto) 0.1 (0.0-0.2) th/mm3 WBC Differential . Differential Comment Auto diff final PT 10.3 (9.8-11.6) sec INR 1.0 Ratio APTT 25.9 (24.3-30.1) sec Sodium 137 (136-145) meq/L Potassium 3.6 (3.5-5.1) meq/L Chloride 102 (98-107) meq/L Carbon Dioxide 26.4 (21.0-32.0) meq/L Anion Gap 9 (5-15) meq/L BUN 8 (7-18) mg/dL Creatinine 0.91 (0.60-1.30) mg/dL Estimated GFR 86 L (>89) mL/min Random Glucose 166 H (74-106) mg/dL Calcium 7.5 L (8.5-10.1) mg/dL Magnesium 2.4 (1.5-2.5) mg/dL Total Bilirubin 0.3 (0.2-1.0) mg/dL AST 35 (15-37) U/L ALT 26 (12-78) U/L Alkaline Phosphatase 257 H (45-117) U/L Total Creatine Kinase 177 (39-308) U/L CK-MB (CK-2) 5.9 H (0.5-3.6) ng/mL Troponin I Less than 0.02 L (0.02-0.05) ng/mL B-Natriuretic Peptide (0-100) pg/mL Total Protein 7.6 D (6.4-8.2) g/dL Albumin 3.3 L (3.4-5.0) g/dL Lipase 364 (73-393) U/L Serum Alcohol 323 H (0-5) mg/dL 10/27/17 10/27/17 10/27/17 Range/Units 00:31 03:42 06:45 WBC (4.0-11.0) th/mm3 RBC (4.50-5.90) mil/mm3 Hgb (13.0-17.0) gm/dL Hct (39.0-51.0) % MCV (80.0-100.0) fL MCH (27.0-34.0) pg MCHC (32.0-36.0) % RDW (11.6-17.2) % Plt Count (150-450) th/mm3 MPV (7.0-11.0) fL Neut % (Auto) (16.0-70.0) % Lymph % (Auto) (9.0-44.0) % [place] % (Auto) (0.0-8.0) % Eos % (Auto) (0.0-4.0) % Baso % (Auto) (0.0-2.0) % Neut # (Auto) (1.8-7.7) th/mm3 Lymph # (Auto) (1.0-4.8) th/mm3 [place] # (Auto) (0.0-0.9) th/mm3 Eos # (Auto) (0.0-0.4) th/mm3 Baso # (Auto) (0.0-0.2) th/mm3 WBC Differential Differential Comment PT (9.8-11.6) sec INR Ratio APTT (24.3-30.1) sec Sodium (136-145) meq/L Potassium (3.5-5.1) meq/L Chloride (98-107) meq/L Carbon Dioxide (21.0-32.0) meq/L Anion Gap (5-15) meq/L BUN (7-18) mg/dL Creatinine (0.60-1.30) mg/dL Estimated GFR (>89) mL/min Random Glucose (74-106) mg/dL Calcium (8.5-10.1) mg/dL Magnesium (1.5-2.5) mg/dL Total Bilirubin (0.2-1.0) mg/dL AST (15-37) U/L ALT (12-78) U/L Alkaline Phosphatase (45-117) U/L Total Creatine Kinase 174 (39-308) U/L CK-MB (CK-2) (0.5-3.6) ng/mL Troponin I 0.02 0.02 (0.02-0.05) ng/mL B-Natriuretic Peptide 51 (0-100) pg/mL Total Protein (6.4-8.2) g/dL Albumin (3.4-5.0) g/dL Lipase (73-393) U/L Serum Alcohol (0-5) mg/dL Imaging Data Radiologist's impression: Chest CTA 10/27/17 00:17 CONCLUSION: 1. No evidence for pulmonary embolism. 2. Parenchymal density in the posterior right upper lobe likely scarring. 3. A 5 mm nodule seen within the right middle lobe. 4. Emphysema without infiltrate. Chest X-Ray 10/27/17 00:17 CONCLUSION: Cardiomegaly and previous CABG. ECG Data Attestation: I personally reviewed and interpreted this ECG as follows: Interpretation: The patient had an EKG done on arrival that shows a date of 102 , QRS duration 112 ms, QTC 424 ms, moderate intraventricular conduction delay, nonspecific T-wave abnormalities. No acute ST segment elevation, T waves are inverted in lead III. Discharge Plan Discharge Disposition Patient Disposition: 30 Still Patient Discharge Details Diagnosis: Chest pain, rule out acute myocardial infarction Physicians Team ED Provider: Jelena Coats Primary Care Provider: UNKNOWN, Attending Provider: Iona Zambrano ED Status: Admitted Observation Patient
[2017-10-27] MEDS ORDERED: Thiamine Inj 100 MG in Sodium Chlor 0.9% Inj 100 ML IV.SIG ONE (00:19)
[2017-10-27 00:52] LABS: Baso # (Auto) 0.1 th/mm3 (0.0-0.2); Baso % (Auto) 1.2 % (0.0-2.0); Eos # (Auto) 0.1 th/mm3 (0.0-0.4); Eos % (Auto) 2.3 % (0.0-4.0); Hematocrit 35.3 % (39.0-51.0); Hemoglobin 11.4 gm/dL (13.0-17.0); Lymph # (Auto) 2.6 th/mm3 (1.0-4.8); Lymph % (Auto) 49.1 % (9.0-44.0); Mean Corpuscular HGB Conc 32.3 % (32.0-36.0); Mean Corpuscular Hemoglobin 29.7 pg (27.0-34.0); Mean Platelet Volume 7.9 fL (7.0-11.0); Mono # (Auto) 0.6 th/mm3 (0.0-0.9); Neut # (Auto) 1.9 th/mm3 (1.8-7.7); Neut % (Auto) 35.4 % (16.0-70.0); Platelet Count 123 th/mm3 (150-450); Red Blood Count 3.84 mil/mm3 (4.50-5.90); Red Cell Distribution Width 19.4 % (11.6-17.2); White Blood Count 5.4 th/mm3 (4.0-11.0)
[2017-10-27 01:02] LABS: Activated Partial Thrombo Time 25.9 sec (24.3-30.1); Prothrombin Time 10.3 sec (9.8-11.6)
[2017-10-27 01:12] LABS: Alanine Aminotransferase 26 U/L (12-78); Albumin 3.3 g/dL (3.4-5.0); Anion Gap 9 meq/L (5-15); Aspartate Aminotransferase 35 U/L (15-37); Blood Urea Nitrogen 8 mg/dL (7-18); Calcium 7.5 mg/dL (8.5-10.1); Carbon Dioxide 26.4 meq/L (21.0-32.0); Chloride 102 meq/L (98-107); Glomerular Filtration Rate 86 mL/min (>89); Glucose,Random 166 mg/dL (74-106); Lipase 364 U/L (73-393); Magnesium 2.4 mg/dL (1.5-2.5); Potassium 3.6 meq/L (3.5-5.1); Sodium 137 meq/L (136-145)
[2017-10-27 01:15] LABS: Alkaline Phosphatase 257 U/L (45-117); Creatine Kinase 177 U/L (39-308); Total Protein 7.6 g/dL (6.4-8.2)
--- NOTE | 2017-10-27 01:17 | CT ---
EXAM DATE: 10/27/2017 1:08 AM EDT AGE/SEX: 57 years / Male INDICATIONS: Chest pain and shortness of breath. CLINICAL DATA: This is the patient's initial encounter. Patient reports that signs and symptoms have been present for 1 day and indicates a pain score of 8/10. MEDICAL/SURGICAL HISTORY: Deep venous thrombosis. Cardiovascular disease. None. RADIATION DOSE: 10.38 CTDI (mGy) ; Patient motion COMPARISON: [facility], CTA PULMONARY W CONTRAST W 3D, 10/21/2017. . TECHNIQUE: Volumetric scanning was performed using a multi-row detector CT scanner during bolus infu maryellen of 75 ml Omnipaque 350 (iohexol) nonionic water-soluble contrast as a single exam dose. The marlin a was post processed with a variety of visualization algorithms including full volume maximum intensi ty projection and sliding thin slab reformation. Using automated exposure control and adjustment of t he mA and/or kV according to patient size, radiation dose was kept as low as reasonably achievable to obtain optimal diagnostic quality images. DICOM format image data is available electronically for r eview and comparison. FINDINGS: Pulmonary Arteries: No filling defects are seen in the pulmonary arteries out to the subsegmental ve ssels. The left and right pulmonary arteries are normal in diameter. Lung: Minimal density in the right posterior aspect of the right upper lobe. Mild centrilobular emphy sema. 5 mm nodule right middle lobe. Effusion: None. Mediastinum: No evidence of mediastinal or hilar adenopathy. Other: The axilla is unremarkable. CONCLUSION: 1. No evidence for pulmonary embolism. 2. Parenchymal density in the posterior right upper lobe likely scarring. 3. A 5 mm nodule seen within the right middle lobe. 4. Emphysema without infiltrate. Electronically signed by: Sebastian Velasquez MD 10/27/2017 1:15 AM EDT
[2017-10-27 01:28] LABS: Alcohol 323 mg/dL (0-5)
[2017-10-27 01:40] LABS: Creatine Kinase MB 5.9 ng/mL (0.5-3.6)
--- NOTE | 2017-10-27 02:49 | XR ---
EXAM DATE: 10/27/2017 1:24 AM EDT AGE/SEX: 57 years / Male INDICATIONS: Chest pain and shortness of breath. CLINICAL DATA: This is the patient's initial encounter. Patient reports that signs and symptoms have been present for 1 day and indicates a pain score of 5/10. MEDICAL/SURGICAL HISTORY: Chronic obstructive pulmonary disease. Hypercholesterolemia. Cataract s. Epilepsy. AFib. HTN. COPD. Dyspnea. Diabetes. Liver disease. Anticoagulant therapy . Pacemaker. . Coronary artery stent. CABG . Ablation. Cardiac cath. Joint replacement x2. [place] [facility] [place]. . FINDINGS: A single AP view of the chest demonstrates the lungs to be symmetrically aerated without evidence of mass, infiltrate or effusion. Cardiomegaly and previous CABG. Right-sided pacemaker with single inta ct lead. Pulmonary vascularity normal. The cardiomediastinal contours are unremarkable. Osseous stru ctures are intact. CONCLUSION: Cardiomegaly and previous CABG. Electronically signed by: Sebastian Velasquez MD 10/27/2017 2:47 AM EDT
[2017-10-27] MEDS ORDERED: Sod Chloride 0.9% Inj 1,000 ML IV.SIG ONE (04:44)
[2017-10-27 07:27] LABS: Troponin I 0.02 ng/mL (0.02-0.05)
[2017-10-27] MEDS: Sod Chloride 0.9% Inj 1,000 ML IV.CONT SCH ×2 (08:12→18:26)
--- NOTE | 2017-10-27 10:54 | P.HPCA ---
History of Present Illness Primary Care Physician: UNKNOWN Chief Complaint: Bilateral leg pain and chest pain History of Present Illness: This is a 57-year-old male with known history of CAD and right femoropopliteal bypass September 17 of this year that presents to ED with continued complaint of bilateral leg pain right side worse than left and chest pain. States he has had this pain for a long time but when asked to specify how long he could not. States that he has been compliant with his medications however he did not take Lasix yesterday. He was in chest pain center 10/21/17, seen by Dr. Anup Kessler. 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 Beaulieu and PCP. He did not follow-up with either. States he gets short of breath. Denies nausea or diaphoresis. Upon reviewing records he had a heart catheterization August 2017 revealing widely patent left main stent and mild to moderate stenosis of ostial LAD with EF of 25-30%. Also showed severe mitral regurgitation. States his heart disease in his family. States he no longer smokes. Admits drinking alcohol yesterday but will not state how much, his alcohol level was over 300. - Diagnosis (1) Chest pain (2) Bilateral lower extremity pain (3) Alcohol abuse Review of Systems General: Patient denies fevers, chills, and recent travel. HEENT: Patient denies headache, sore throat, difficulty swallowing. Cardiovascular: Has the chest discomfort as mentioned above. Denies sensation of heart beating rapidly or irregularly. No syncope. Respiratory: Denies shortness of breath or inspirational chest discomfort. Denies coughing wheezing or hemoptysis. GI: Patient denies nausea, vomiting, diarrhea, abdominal pain, bloody stools. Musculoskeletal: Complains of bilateral leg pain more so right. Patient denies joint pain or edema. Claims of edema in his legs. Neurovascular: Patient denies numbness, tingling, weakness in extremities. Denies headache. Endocrine: Denies polyuria and polydipsia. Hematologic: Denies easy bruising. Skin: Denies rash or itching. PMFSH - History History Provided By: Patient - Medical History Medical History: Medical History (Last Reviewed 10/27/17 @ 01:32 by Jelena Coats MD) Afib CAD (coronary artery disease) CHF (congestive heart failure) Epilepsy Hx of blood clots Hypercholesteremia - Surgical History Surgical History: Surgical History (Last Reviewed 10/27/17 @ 01:32 by Jelena Coats MD) Hx of coronary artery bypass graft - Tobacco History Second Hand Smoke Exposure: No Tobacco Use In Past 30 Days: Yes Smoking Status: Current every day smoker Tobacco Type: Cigarettes - Alcohol History How Often Do You Have a Drink Containing Alcohol: 4 or more times a week - Substance Use History Substance History: No History of Abuse - Travel History Recent Travel in the [place] Within the Last 8 Weeks: No Recent Travel Out of the Country Within the Last 8 Weeks: No - Immunization History Tetanus Immunization: Unsure Hx Influenza Vaccine This Season: No Medications and Allergies Active Medications: Active Medications Clopidogrel Bisulfate (Plavix) 75 mg PO DAILY [facility] Dabigatran (Pradaxa) 150 mg PO BID [facility] Furosemide (Lasix) 20 mg PO DAILY [facility] Gabapentin (Neurontin) 100 mg PO TID [facility] Sodium Chloride (Ns Inj) 1,000 mls @ 100 mls/hr IV.CONT .Q10H [facility] Last Infusion: 10/27/17 10:06 Dose: Infused Levetiracetam (Keppra) 1,000 mg PO Q12H [facility] Metoprolol Succinate (Toprol Xl) 50 mg PO DAILY [facility] Nitroglycerin (Nitrostat Sl) 0.4 mg SL Q5M PRN PRN Reason: CHEST PAIN Pantoprazole Sodium (Protonix) 40 mg PO DAILY [facility] Last Admin: 10/27/17 08:12 Dose: 40 mg Potassium Chloride (Kcl) 10 meq PO BID [facility] Sodium Chloride (Ns Flush) 2 ml IV.FLUSH UNSCH PRN PRN Reason: FLUSH AFTER USING IV ACCESS Sodium Chloride (Ns Flush) 2 ml IV.FLUSH BID [facility] Last Admin: 10/27/17 10:07 Dose: Not Given Sodium Chloride (Ns Flush) 2 ml IV.FLUSH PRN PRN PRN Reason: FLUSH AFTER USING IV ACCESS Allergies Allergy/AdvReac Type Severity Reaction Status Date / Time cefazolin AdvReac Severe Hives Verified 10/26/17 23:34 nitroglycerin AdvReac Intermediate Nausea/Vomi Verified 10/26/17 23:34 ting MRI PRECAUTION AdvReac Severe Unresponsiv Uncoded 09/12/17 10:00 e Home Medications Medication Instructions Recorded Confirmed Type gabapentin 100 mg PO TID 06/30/18 08/15/18 History levetiracetam 1,000 mg PO Q12H 09/11/17 10/27/17 History metoprolol succinate 50 mg PO DAILY 09/11/17 10/27/17 History furosemide 20 mg PO DAILY 10/27/17 10/27/17 History Exam Vital signs: Vital Signs 10/26/17 23:34 10/27/17 00:32 10/27/17 00:37 Temperature 98.7 F Pulse Rate 112 H 101 H Respiratory Rate 22 18 Blood Pressure 143/84 H 130/79 Pulse Oximetry 97 97 97 10/27/17 03:52 10/27/17 08:39 10/27/17 10:24 Temperature Pulse Rate 110 H 110 H 122 H Respiratory Rate 18 16 Blood Pressure 107/52 L 122/56 L 126/75 Pulse Oximetry 96 97 Intake & Output 10/26/17 10/27/17 10/27/17 18:59 06:59 18:59 Intake Total 2100 Output Total 1800 / 1800 Balance -1800 / -1800 2100 Weight 81.647 kg Intake: IV 2100 NS Inj 1,000 ML @ 100 mls/hr IV 1000 / 1000 .CONT .Q10H [facility] Rx#:[id number] NS Inj 1,000 ML @ Wide Open IV. 1000 / 1000 SIG BOLUS ONE Rx#:[id number] Thiamine Inj 100 MG In NS Inj 101 / 101 100 ML @ 100 mls/hr IV.SIG ONCE ONE Rx#:[id number] Output: Urine 1800 / 1800 Narrative: GENERAL: This is a well-nourished, well-developed patient, in no apparent distress. Patient speaks in clear complete sentences. Patient is pleasant. HEENT: Head is atraumatic and normocephalic. Neck is supple without lymphadenopathy and trachea is midline. No JVD or carotid bruits. CARDIOVASCULAR: Grade 3 systolic murmur left sternal border. Regular rate and rhythm without gallops, or rubs. RESPIRATORY: Clear to auscultation. Breath sounds equal bilaterally. No wheezes , rales, or rhonchi. Chest wall is nontender. No use of accessory muscles. GASTROINTESTINAL: Abdomen is nontender, nondistended. Abdomen soft. No obvious pulsatile mass or bruit. No CVA tenderness. Strong femoral pulses bilaterally. Normal bowel sounds in all quadrants. MUSCULOSKELETAL: Patient is moving upper and lower extremities freely but tries to limit his range of motion in lower extremities. Complains of pain even with very lightly touching the lower extremities. There is bilateral 1+ lower extremity edema. No Homans sign. Strong pulses in upper and lower extremities. NEUROLOGICAL: Patient is alert and oriented. Cranial nerves 2-12 are grossly intact. No focal deficits and speech is clear. SKIN: No rash and turgor is normal. Results 10/27/17 00:31 10/27/17 00:31 Cardiac Enzymes 10/27/17 10/27/17 10/27/17 Range/Units 00:31 00:31 03:42 AST 35 (15-37) U/L CK-MB (CK-2) 5.9 H (0.5-3.6) ng/mL Troponin I Less than 0.02 L 0.02 (0.02-0.05) ng/mL B-Natriuretic Peptide 51 (0-100) pg/mL 10/27/17 Range/Units 06:45 AST (15-37) U/L CK-MB (CK-2) (0.5-3.6) ng/mL Troponin I 0.02 (0.02-0.05) ng/mL B-Natriuretic Peptide (0-100) pg/mL Coagulation 10/27/17 10/27/17 Range/Units 00:31 00:31 PT 10.3 (9.8-11.6) sec APTT 25.9 (24.3-30.1) sec B-Natriuretic Peptide 51 (0-100) pg/mL CBC 10/27/17 Range/Units 00:31 WBC 5.4 (4.0-11.0) th/mm3 RBC 3.84 L (4.50-5.90) mil/mm3 Hgb 11.4 L (13.0-17.0) gm/dL Hct 35.3 L (39.0-51.0) % Plt Count 123 L D (150-450) th/mm3 Neut # (Auto) 1.9 (1.8-7.7) th/mm3 Lymph # (Auto) 2.6 (1.0-4.8) th/mm3 Monona # (Auto) 0.6 (0.0-0.9) th/mm3 Eos # (Auto) 0.1 (0.0-0.4) th/mm3 Baso # (Auto) 0.1 (0.0-0.2) th/mm3 Comprehensive Metabolic Panel 10/27/17 Range/Units 00:31 Sodium 137 (136-145) meq/L Potassium 3.6 (3.5-5.1) meq/L Chloride 102 (98-107) meq/L Carbon Dioxide 26.4 (21.0-32.0) meq/L BUN 8 (7-18) mg/dL Creatinine 0.91 (0.60-1.30) mg/dL Calcium 7.5 L (8.5-10.1) mg/dL AST 35 (15-37) U/L ALT 26 (12-78) U/L Alkaline Phosphatase 257 H (45-117) U/L Total Protein 7.6 D (6.4-8.2) g/dL Albumin 3.3 L (3.4-5.0) g/dL Intake and Output 10/26/17 10/27/17 10/27/17 22:59 06:59 14:59 Intake Total 2100 Output Total 1800 / 1800 Balance -1800 / -1800 2100 Intake: IV 2100 NS Inj 1,000 ML @ 100 mls/hr IV 1000 / 1000 .CONT .Q10H [facility] Rx#:[id number] NS Inj 1,000 ML @ Wide Open IV. 1000 / 1000 SIG BOLUS ONE Rx#:[id number] Thiamine Inj 100 MG In NS Inj 101 / 101 100 ML @ 100 mls/hr IV.SIG ONCE ONE Rx#:[id number] Output: Urine 1800 / 1800 Other: Weight 81.647 kg EKG interpretations - EKG EKG shows: tachycardia (EKGs have been sinus rhythm to sinus tachycardia with nonspecific T-wave changes.), sinus rhythm Caprini VTE Risk Assessment Caprini VTE Risk Assessment: No/Low Risk (score <= 1) Caprini Risk Assessment Model: Point Value = 1 Point Value = 2 Point Value = 3 Point Value = 5 Age 41-60 Minor surgery BMI > 25 kg/m2 Swollen legs Varicose veins or History of unexplained or recurrent spontaneous Oral contraceptives or hormone replacement Sepsis (< 1 month) Serious lung disease, including pneumonia (< 1 month) Abnormal pulmonary function Acute myocardial infarction Congestive heart failure (< 1 month) History of inflammatory bowel disease Medical patient at bed rest Age 61-74 Arthroscopic surgery Major open surgery (> 45 min) Laparoscopic surgery (> 45 min) Malignancy Confined to bed (> 72 hours) Immobilizing plaster cast Central venous access Age >= 75 History of VTE Family history of VTE Factor V Leiden Prothrombin [id number] Lupus anticoagulant Anticardiolipin antibodies Elevated serum homocysteine Heparin-induced thrombocytopenia Other congenital or acquired thrombophilia Stroke (< 1 month) Elective arthroplasty Hip, pelvis, or leg fracture Acute spinal cord injury (< 1 month) Prophylaxis Regimen: Total Risk Factor Score Risk Level Prophylaxis Regimen 0-1 Low Early ambulation 2 Moderate Order ONE of the following: *Sequential Compression Device (SCD) *Heparin 5000 units SQ BID 3-4 Higher Order ONE of the following medications: *Heparin 5000 units SQ TID *Enoxaparin/Lovenox 40 mg SQ daily (WT < 150 kg, CrCl > 30 mL/min) *Enoxaparin/Lovenox 30 mg SQ daily (WT < 150 kg, CrCl > 10-29 mL/min) *Enoxaparin/Lovenox 30 mg SQ BID (WT < 150 kg, CrCl > 30 mL/min) AND/OR *Sequential Compression Device (SCD) 5 or more Highest Order ONE of the following medications: *Heparin 5000 units SQ TID (Preferred with Epidurals) *Enoxaparin/Lovenox 40 mg SQ daily (WT < 150 kg, CrCl > 30 mL/min) *Enoxaparin/Lovenox 30 mg SQ daily (WT < 150 kg, CrCl > 10-29 mL/min) *Enoxaparin/Lovenox 30 mg SQ BID (WT < 150 kg, CrCl > 30 mL/min) AND *Sequential Compression Device (SCD) Assessment and Plan - Assessment (1) Chest pain Code(s): R07.9 - Chest pain, unspecified Status: Acute (2) Bilateral lower extremity pain Code(s): M79.604 - Pain in right leg; M79.605 - Pain in left leg Status: Acute (3) Alcohol abuse Code(s): F10.10 - Alcohol abuse, uncomplicated Status: Acute - Plan * Chest pain: Patient has had serial cardiac enzymes and EKGs for ruling out purposes. He was seen by Dr. Anup Kessler of cardiology in the chest pain center. No further cardiac testing. Patient will need to follow-up with his machinist mate. He needs to follow-up with PCP as well. I will attempt to make an appointment with his PCP as the patient has not done this with his last several discharge instructions. * Bilateral lower extremity pain: Strong pulses in bilateral lower extremities. Dr. Anup Kessler spoke with Dr. Elizabeth who performed the right femoropopliteal bypass September. States he will evaluate the patient. Patient will be restarted on his Lasix which he states he has at home but forgot to take yesterday. * Alcohol abuse: Patient counseled importance of not abusing alcohol. Patient is stable at this time. He is agreeable to this plan.
--- NOTE | 2017-10-27 11:31 | ECG ---
Date Performed: 10/27/2017 Time Performed: 04:39:20 PTAGE: 57 years EKG: SINUS TACHYCARDIA MODERATE INTRAVENTRICULAR CONDUCTION DELAY NONSPECIFIC T-WAVE ABNORMALITY ABNORMAL RHYTHM ECG PREVIOUS TRACING : 10/26/2017 23.37 Since previous tracing, no significant change noted DOCTOR: Anup Kessler Interpretating Date/Time 10/27/2017 11:28:34
--- NOTE | 2017-10-27 11:32 | ECG ---
Date Performed: 10/26/2017 Time Performed: 23:37:39 PTAGE: 57 years EKG: SINUS TACHYCARDIA POSSIBLE LEFT ATRIAL ENLARGEMENT MODERATE INTRAVENTRICULAR CONDUCTION DEL AY NONSPECIFIC T-WAVE ABNORMALITY ABNORMAL ECG PREVIOUS TRACING : 10/21/2017 06.43 Since previous tracing, no significant change noted DOCTOR: Anup Kessler Interpretating Date/Time 10/27/2017 11:29:49
--- NOTE | 2017-10-27 11:34 | ECG ---
Date Performed: 10/27/2017 Time Performed: 06:52:11 PTAGE: 57 years EKG: SINUS TACHYCARDIA POSSIBLE LEFT ATRIAL ENLARGEMENT NONSPECIFIC T-WAVE ABNORMALITY ABNORMAL RHYTHM ECG PREVIOUS TRACING : 10/27/2017 04.39 Since previous tracing, no significant change noted DOCTOR: Anup Kessler Interpretating Date/Time 10/27/2017 11:31:29
[2017-10-27] MEDS ORDERED: Haloperidol Inj 5 MG/ML Ampul IV.PUSH PRN (13:16)
[2017-10-27] MEDS ORDERED: LORazepam 1 MG Tablet PO PRN (13:16)
[2017-10-27] MEDS: Furosemide 20 MG Tablet PO SCH (13:39)
[2017-10-27] MEDS: levETIRAcetam 500 MG Tablet PO SCH (13:39)
[2017-10-27] MEDS: Gabapentin 100 MG Capsule PO SCH ×2 (13:39→18:25)
[2017-10-27] MEDS: Potassium Chloride 10 MEQ ER Capsule PO SCH ×2 (13:39→21:29)
--- NOTE | 2017-10-27 14:05 | MB ---
cc: Vin Grace MD DATE: 10/27/2017 REASON FOR CONSULTATION: Peripheral vascular disease, status post right femoral popliteal bypass. HISTORY OF PRESENT ILLNESS: This 57-year-old male presents to the emergency room with chest pain. The patient has had several visits lately for chest pain and was worked up every time, and not found anything beyond the known conditions. The patient is now in the holding unit and I am asked to see him for his vascular issues. In 09/2017, patient underwent right femoropopliteal bypass with femoral endarterectomy, for which he did well. He was seen in the office once, a week later, and then failed to follow up. I normally see patients again 4 weeks after the surgery and then in scheduled intervals. He is very noncompliant with his care. Question arises about any vascular indications. PAST MEDICAL HISTORY: Coronary artery disease, recurrent chest pain, and peripheral vascular disease. PAST SURGICAL HISTORY: Coronary artery bypass grafting and right fem-pop bypass about 2 months ago. SOCIAL HISTORY: The patient smokes about 2 packs a day, has never stopped, drinks daily. PHYSICAL EXAMINATION: GENERAL: Reveals a 57-year-old male. HEENT: Normocephalic. No trauma to the head. Pupils equal, reactive. Extraocular muscles intact. NECK: Bilateral carotid pulses. No bruits. CHEST: Bilateral breath sounds. HEART: Regular rhythm. The patient is definitely not in atrial fibrillation. He has mitral insufficiency with a systolic murmur over the ictus cordis, grade 3-4. ABDOMEN: Soft. No rebound, no guarding, no masses. EXTREMITIES: The patient has palpable femoral pulse. Nicely-healed incision. A strong Dopplerable popliteal pulse, nicely patent. Brisk pulse in the graft and distal dorsalis pedis and posterior tibial pulses on Doppler, which are strong. Foot is nice and warm and well perfused, both legs. On the left side, the patient has a very weak femoral pulse and no popliteal pulse. Dorsalis pedis and posterior tibial are weak. The right foot is definitely warmer than the left. Moderate edema of both legs and blood, with some fluid overload with CHF. NEUROLOGIC: The patient is intact. IMPRESSION AND PLAN: At this point, the patient has a nicely functioning right femoral popliteal graft and from my point does not need anything done. He is again instructed to follow up with my office so we can evaluate the left leg and at some point schedule the patient for a left femoral popliteal bypass, depending on his symptomatology, but other than that nothing to add to care. MD NIKHIL Shannon/fouzia , 01:11 PM , 01:22 PM [place]
--- NOTE | 2017-10-27 14:28 | P.PNVS ---
Subjective Subjective/Hospital Course: 10/27/2017 Patient with peripheral vascular disease underwent successful right femoral- popliteal bypass about 2 months ago. Incisions are clean and dry patient has bounding femoral pulse on palpation dopplerable strong popliteal and graft pulses and strong dorsalis pedis posterior tibial on the right. Foot is warm and patient is pretibial edema bilaterally Left foot blood supply is impaired and patient needs a femoral-popliteal bypass on that side at some point in the future but does not have any limb threatening ischemia stigmata other than claudication and dependent rubor. Patient fell out of the follow-up and is scheduled and was instructed to see me in the office in the near future. Patient is noncompliant with care and follow-ups. Nothing to add to the care of this admission Objective Vital Signs / I&O: Vital Signs 10/26/17 23:34 10/27/17 00:32 10/27/17 00:37 Temperature 98.7 F Pulse Rate 112 H 101 H Respiratory Rate 22 18 Blood Pressure 143/84 H 130/79 Pulse Oximetry 97 97 97 10/27/17 03:52 10/27/17 08:00 10/27/17 08:39 Temperature 98.2 F Pulse Rate 110 H 148 H 110 H Respiratory Rate 18 18 16 Blood Pressure 107/52 L 136/85 122/56 L Pulse Oximetry 96 95 10/27/17 10:24 Temperature Pulse Rate 122 H Respiratory Rate Blood Pressure 126/75 Pulse Oximetry 97 Intake & Output 10/26/17 10/27/17 10/27/17 18:59 06:59 18:59 Intake Total 2100 Output Total 1800 / 1800 Balance -1800 / -1800 2100 Weight 81.647 kg Intake: IV 2100 NS Inj 1,000 ML @ 100 mls/hr IV 1000 / 1000 .CONT .Q10H [facility] Rx#:[id number] NS Inj 1,000 ML @ Wide Open IV. 1000 / 1000 SIG BOLUS ONE Rx#:[id number] Thiamine Inj 100 MG In NS Inj 101 / 101 100 ML @ 100 mls/hr IV.SIG ONCE ONE Rx#:[id number] Output: Urine 1800 / 1800 Laboratory Results - last 24 hr 10/27/17 10/27/17 10/27/17 00:31 00:31 00:31 WBC 5.4 RBC 3.84 L Hgb 11.4 L Hct 35.3 L MCV 92.0 MCH 29.7 MCHC 32.3 RDW 19.4 H Plt Count 123 L D MPV 7.9 Neut % (Auto) 35.4 Lymph % (Auto) 49.1 H Garza % (Auto) 12.0 H Eos % (Auto) 2.3 Baso % (Auto) 1.2 Neut # (Auto) 1.9 Lymph # (Auto) 2.6 Garza # (Auto) 0.6 Eos # (Auto) 0.1 Baso # (Auto) 0.1 WBC Differential . Differential Comment Auto diff final PT 10.3 INR 1.0 APTT 25.9 Sodium 137 Potassium 3.6 Chloride 102 Carbon Dioxide 26.4 Anion Gap 9 BUN 8 Creatinine 0.91 Estimated GFR 86 L Random Glucose 166 H Calcium 7.5 L Magnesium 2.4 Total Bilirubin 0.3 AST 35 ALT 26 Alkaline Phosphatase 257 H Total Creatine Kinase 177 CK-MB (CK-2) 5.9 H Troponin I Less than 0.02 L B-Natriuretic Peptide Total Protein 7.6 D Albumin 3.3 L Lipase 364 Serum Alcohol 323 H 10/27/17 10/27/17 10/27/17 00:31 03:42 06:45 WBC RBC Hgb Hct MCV MCH MCHC RDW Plt Count MPV Neut % (Auto) Lymph % (Auto) Garza % (Auto) Eos % (Auto) Baso % (Auto) Neut # (Auto) Lymph # (Auto) Garza # (Auto) Eos # (Auto) Baso # (Auto) WBC Differential Differential Comment PT INR APTT Sodium Potassium Chloride Carbon Dioxide Anion Gap BUN Creatinine Estimated GFR Random Glucose Calcium Magnesium Total Bilirubin AST ALT Alkaline Phosphatase Total Creatine Kinase 174 CK-MB (CK-2) Troponin I 0.02 0.02 B-Natriuretic Peptide 51 Total Protein Albumin Lipase Serum Alcohol Impressions Chest CTA 10/27/17 00:17 CONCLUSION: 1. No evidence for pulmonary embolism. 2. Parenchymal density in the posterior right upper lobe likely scarring. 3. A 5 mm nodule seen within the right middle lobe. 4. Emphysema without infiltrate. Chest X-Ray 10/27/17 00:17 CONCLUSION: Cardiomegaly and previous CABG.
[2017-10-27] MEDS: Ketorolac Inj 30 MG/ML (IVP) Vial IV.PUSH PRN (18:26)
[2017-10-28] MEDS: Ketorolac Inj 30 MG/ML (IVP) Vial IV.PUSH PRN ×2 (03:53→10:09)
[2017-10-28] MEDS: Sod Chloride 0.9% Inj 1,000 ML IV.CONT SCH ×2 (03:57→12:26)
[2017-10-28] MEDS: levETIRAcetam 500 MG Tablet PO SCH ×2 (03:59→12:28)
[2017-10-28 08:31] VITALS: O2SAT 97
[2017-10-28] MEDS: Furosemide 20 MG Tablet PO SCH (10:07)
[2017-10-28] MEDS: Gabapentin 100 MG Capsule PO SCH ×2 (10:07→14:35)
[2017-10-28] MEDS: Potassium Chloride 10 MEQ ER Capsule PO SCH (10:08)
[2017-10-28 11:59] VITALS: BP 104/59; PULSE 75; RESP 16; TEMP 98.2
--- NOTE | 2017-10-28 14:37 | P.PN ---
Subjective Interval history: Patient is a 57-year-old male with a past medical history of seizure, A. fib, DVT on Pradaxa, PVD status post femoropopliteal bypass with Dr. Elizabeth on 09/17, CHF (cath 08/20/17 with EF 2530%), AICD, CABG and EtOH abuse. He presented to the emergency room 10/26/17 with complaint of chest pain that he described as being sharp and radiating up into his neck. Also reported shortness of breath and worsening lower extremity edema. Patient reported that he had also recently been started on Lasix 20 mg and a new blood thinner that he does not remember the name of. It appeared that he not been taking his medications as prescribed. He has had multiple admissions over the past several months and has been thoroughly evaluated by cardiology. CTA indicated no pulmonary embolism. Apparently he has been very inconsistent with his outpatient follow- up and has missed multiple appointments. He is very resistant to being discharged and has been suspected of both faking seizures and malingering. He is seen today lying comfortably in bed talking on the phone. He appears to be in no distress. Nursing reports no adverse events and states that patient has been eating well. He has a partially full urinal of clear yellow urine; nursing reports regular bowel movements. He is able to reposition himself in the bed without difficulty. Physical Exam Vital signs: Vital Signs 10/27/17 15:31 10/27/17 18:13 10/27/17 19:00 Temperature 98.0 F 98.7 F Pulse Rate 84 98 H Respiratory Rate 16 16 18 Blood Pressure 118/57 L 115/64 Pulse Oximetry 100 97 10/27/17 20:00 10/27/17 23:33 10/28/17 03:26 Temperature 99.1 F 97.8 F Pulse Rate 93 H 88 84 Respiratory Rate 20 18 Blood Pressure 106/63 Pulse Oximetry 96 96 10/28/17 08:00 10/28/17 11:57 Temperature 97.6 F 98.2 F Pulse Rate 84 75 Respiratory Rate 18 16 Blood Pressure 111/74 104/59 L Pulse Oximetry 97 97 Intake & Output 10/27/17 10/28/17 10/28/17 18:59 06:59 18:59 Intake Total 2100 / 2100 1000 / 1000 Output Total 300 / 300 Balance 2100 700 / 700 Weight 93.1 kg Intake: IV 2100 1000 / 1000 NS Inj 1,000 ML @ 100 mls/hr IV 1000 / 1000 1000 / 1000 .CONT .Q10H SILVERIO Rx#:[id number] NS Inj 1,000 ML @ Wide Open IV. 1000 / 1000 SIG BOLUS ONE Rx#:[id number] Thiamine Inj 100 MG In NS Inj 101 / 101 100 ML @ 100 mls/hr IV.SIG ONCE ONE Rx#:[id number] Output: Urine 300 / 300 Other: Date of Last Bowel Movement 10/27/17 10/27/17 # Bowel Movements 2 Weight On Admission 93.1 kg Narrative: GENERAL: Well-nourished, well-developed adult male in no obvious distress. SKIN: Warm and dry. HEAD: Atraumatic. Normocephalic. CARDIOVASCULAR: Regular rate and rhythm. RESPIRATORY: No accessory muscle use. Clear to auscultation. Breath sounds equal bilaterally. GASTROINTESTINAL: Abdomen soft, non-tender, non-distended. Positive bowel sounds. MUSCULOSKELETAL: Extremities without clubbing, cyanosis, or edema. No obvious deformities. NEUROLOGICAL: Awake and alert. No obvious cranial nerve deficits. Motor grossly within normal limits. Normal speech. Results - Labs CBC & Chem 7: 10/27/17 00:31 10/27/17 00:31 Assessment and Plan - Plan Patient is a 57-year-old male with a past medical history of seizure, A. fib, DVT on Pradaxa, PVD status post femoropopliteal bypass with Dr. Elizabeth on 09/17, CHF (cath 08/20/17 with EF 2530%), AICD, CABG and EtOH abuse. He presented to the emergency room 10/26/17 with complaint of chest pain that he described as being sharp and radiating up into his neck. Also reported shortness of breath and worsening lower extremity edema. Patient reported that he had also recently been started on Lasix 20 mg and a new blood thinner that he does not remember the name of. It appeared that he not been taking his medications as prescribed. He has had multiple admissions over the past several months and has been thoroughly evaluated by cardiology. CTA indicated no pulmonary embolism. Apparently he has been very inconsistent with his outpatient follow- up and has missed multiple appointments. He is very resistant to being discharged and has been suspected of both faking seizures and malingering. A. fib/PVD/CHF/CABG -Evaluated by cardiology -no intervention needed at this time. Patient to follow-up with outpatient cardiology. -Continue medication as previously Malingering and noncompliance -Patient encouraged to be consistent with his medications and outpatient follow- up in order to avoid exacerbations and/or worsening of his conditions. EtOH abuse -Encouraged cessation.
--- NOTE | 2017-10-28 14:56 | P.DS ---
Date of admission: 10/27/17 04:29 Primary care physician: UNKNOWN Attending physician on discharge: Louis Agrawal Anticipated date of discharge: 10/28/17 Brief History from admission: This is a 57-year-old male with known history of CAD and right femoropopliteal bypass September 17 of this year that presents to ED with continued complaint of bilateral leg pain right side worse than left and chest pain. States he has had this pain for a long time but when asked to specify how long he could not. States that he has been compliant with his medications however he did not take Lasix yesterday. He was in chest pain center 10/21/17, seen by Dr. Anup Kessler. He had serial cardiac enzymes and EKGs for ruling out and was instructed to follow-up with his residential interior designer Dr. Beaulieu and PCP. He did not follow-up with either. States he gets short of breath. Denies nausea or diaphoresis. Upon reviewing records he had a heart catheterization August 2017 revealing widely patent left main stent and mild to moderate stenosis of ostial LAD with EF of 25-30%. Also showed severe mitral regurgitation. States his heart disease in his family. States he no longer smokes. Admits drinking alcohol yesterday but will not state how much, his alcohol level was over 300. DS: Diagnosis - Discharge Diagnosis (1) Non compliance w medication regimen Status: Chronic (2) Chest pain Status: Resolved (3) Alcohol abuse Status: Chronic DS: Summary Hospital Course: Patient is a 57-year-old male with a past medical history of seizure, A. fib, DVT on Pradaxa, PVD status post femoropopliteal bypass with Dr. Elizabeth on 09/17, CHF (cath 08/20/17 with EF 2530%), AICD, CABG and EtOH abuse. He presented to the emergency room 10/26/17 with complaint of chest pain that he described as being sharp and radiating up into his neck. Also reported shortness of breath and worsening lower extremity edema. Patient reported that he had also recently been started on Lasix 20 mg and a new blood thinner that he does not remember the name of. It appeared that he not been taking his medications as prescribed. He has had multiple admissions over the past several months and has been thoroughly evaluated by cardiology. CTA indicated no pulmonary embolism. Apparently he has been very inconsistent with his outpatient follow- up and has missed multiple appointments. He is very resistant to being discharged and has been suspected of both faking seizures and malingering. A. fib/PVD/CHF/CABG -Evaluated by cardiology -no intervention needed at this time. Patient to follow-up with outpatient cardiology. -Continue medication as previously Malingering and noncompliance -Patient encouraged to be consistent with his medications and outpatient follow- up in order to avoid exacerbations and/or worsening of his conditions. EtOH abuse -Encouraged cessation. - Time Spent with Patient Total time spent providing and/or coordinating discharge services: Less than 30 minutes - Quality: VTE Deep Vein Thrombosis/Pulmonary Embolism Present on Admission: No Exam Vital signs: Vital Signs 10/27/17 15:31 10/27/17 18:13 10/27/17 19:00 Temperature 98.0 F 98.7 F Pulse Rate 84 98 H Respiratory Rate 16 16 18 Blood Pressure 118/57 L 115/64 Pulse Oximetry 100 97 10/27/17 20:00 10/27/17 23:33 10/28/17 03:26 Temperature 99.1 F 97.8 F Pulse Rate 93 H 88 84 Respiratory Rate 20 18 Blood Pressure 106/63 Pulse Oximetry 96 96 10/28/17 08:00 10/28/17 11:57 Temperature 97.6 F 98.2 F Pulse Rate 84 75 Respiratory Rate 18 16 Blood Pressure 111/74 104/59 L Pulse Oximetry 97 97 Intake & Output 10/27/17 10/28/17 10/28/17 18:59 06:59 18:59 Intake Total 2101 / 2101 1000 / 1000 1000 / 1000 Output Total 300 / 300 Balance 2101 / 2101 700 / 700 1000 / 1000 Weight 93.1 kg Intake: IV 2101 / 2101 1000 / 1000 1000 / 1000 NS Inj 1,000 ML @ 100 mls/hr IV 1000 / 1000 1000 / 1000 1000 / 1000 .CONT .Q10H SILVERIO Rx#:[id number] NS Inj 1,000 ML @ Wide Open IV. 1000 / 1000 SIG BOLUS ONE Rx#:[id number] Thiamine Inj 100 MG In NS Inj 101 / 101 100 ML @ 100 mls/hr IV.SIG ONCE ONE Rx#:[id number] Output: Urine 300 / 300 Other: Date of Last Bowel Movement 10/27/17 10/27/17 # Bowel Movements 2 Weight On Admission 93.1 kg Narrative: GENERAL: Well-nourished, well-developed adult male in no obvious distress. SKIN: Warm and dry. HEAD: Atraumatic. Normocephalic. CARDIOVASCULAR: Regular rate and rhythm. RESPIRATORY: No accessory muscle use. Clear to auscultation. Breath sounds equal bilaterally. GASTROINTESTINAL: Abdomen soft, non-tender, non-distended. Positive bowel sounds. MUSCULOSKELETAL: Extremities without clubbing, cyanosis, or edema. No obvious deformities. NEUROLOGICAL: Awake and alert. No obvious cranial nerve deficits. Motor grossly within normal limits. Normal speech. Results Procedures completed during hospitalization: none - Impressions ITS Impressions Chest CTA 10/27/17 00:17 CONCLUSION: 1. No evidence for pulmonary embolism. 2. Parenchymal density in the posterior right upper lobe likely scarring. 3. A 5 mm nodule seen within the right middle lobe. 4. Emphysema without infiltrate. Chest X-Ray 10/27/17 00:17 CONCLUSION: Cardiomegaly and previous CABG. Discharge Plan - Discharge Disposition Patient Disposition: Discharge Home - Discharge Condition Condition: Stable - Discharge Order Discharge Orders: Discharge Order (Routine); Ordered 10/28/17 Ordered By: Marbella Azul - Physicians Team Primary Care Provider: UNKNOWN, Attending Provider: Louis Agrawal Other Providers: Vin Grace MD
== END 2017-10-28 16:16 | disposition home or self-care (01) ==
LOC: NEPGCP 23:30 → NEDA 23:30 → NEPC 23:30 → NEPGCP 10-27 08:40
PROVIDERS: ADMIT Hospitalist; ATTEND Hospitalist